=== PATIENT | male | born 1940 | race Caucasian/White ===

== ENCOUNTER → 2020-06-23 15:35 | Outpatient (BNVA) | payer MEDICARE, SELFPAY | PROVIDERS: PCP Internal Medicine; Visit Provider Internal Medicine | DX: I48.91 Unspecified atrial fibrillation (principal); Z51.81 Encounter for therapeutic drug level monitoring; Z79.01 Long term (current) use of anticoagulants | CPT/HCPCS: 85610 ==

== ENCOUNTER → 2020-07-21 08:38 | Outpatient (BNVA) | payer MEDICARE, SELFPAY | PROVIDERS: PCP Internal Medicine; Visit Provider Internal Medicine | DX: I48.91 Unspecified atrial fibrillation (principal); Z51.81 Encounter for therapeutic drug level monitoring; Z79.01 Long term (current) use of anticoagulants | CPT/HCPCS: 85610; 99211 ==

== ENCOUNTER 2020-07-22 17:08 | Outpatient (REF) | payer MEDICARE, SELFPAY | END 2020-07-22 17:09 | disposition home or self-care (01) | LOC: HO.LAB 17:08 | PROVIDERS: PCP Internal Medicine; Visit Provider Internal Medicine | DX: Z20.828 Contact with and (suspected) exposure to other viral communicable diseases (principal) | CPT/HCPCS: C9803; U0003 ==

== ENCOUNTER → 2020-08-18 08:30 | Outpatient (BNVA) | payer MEDICARE, SELFPAY | PROVIDERS: PCP Internal Medicine; Referring Provider Internal Medicine; Visit Provider Internal Medicine | DX: I48.91 Unspecified atrial fibrillation (principal); Z51.81 Encounter for therapeutic drug level monitoring; Z79.01 Long term (current) use of anticoagulants | CPT/HCPCS: 85610; 99211 ==

== ENCOUNTER → 2020-09-15 08:50 | Outpatient (BNVA) | payer MEDICARE, SELFPAY | PROVIDERS: PCP Internal Medicine; Visit Provider Internal Medicine | DX: I48.91 Unspecified atrial fibrillation (principal); Z79.01 Long term (current) use of anticoagulants; Z51.81 Encounter for therapeutic drug level monitoring | CPT/HCPCS: 85610; 99211 ==

== ENCOUNTER → 2020-10-03 09:13 | Outpatient (BNVA) | payer MEDICARE, SELFPAY | PROVIDERS: PCP Internal Medicine; Visit Provider Internal Medicine | DX: I48.91 Unspecified atrial fibrillation (principal); Z79.01 Long term (current) use of anticoagulants; Z51.81 Encounter for therapeutic drug level monitoring | CPT/HCPCS: 85610; 99211 ==

== ENCOUNTER → 2020-10-13 08:38 | Outpatient (BNVA) | payer MEDICARE, SELFPAY | PROVIDERS: PCP Internal Medicine; Visit Provider Internal Medicine | DX: I48.91 Unspecified atrial fibrillation (principal); Z51.81 Encounter for therapeutic drug level monitoring; Z79.01 Long term (current) use of anticoagulants | CPT/HCPCS: 85610; 99211 ==

== ENCOUNTER → 2020-11-10 08:35 | Outpatient (BNVA) | payer MEDICARE, SELFPAY | PROVIDERS: PCP Internal Medicine; Visit Provider Internal Medicine | DX: I48.91 Unspecified atrial fibrillation (principal); Z51.81 Encounter for therapeutic drug level monitoring; Z79.01 Long term (current) use of anticoagulants | CPT/HCPCS: 85610; 99211 ==

== ENCOUNTER 2020-11-22 07:21 | Outpatient (REF) | payer MEDICARE, SELFPAY ==
--- NOTE | ~2020-11-22 | XR_ITS ---
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 No fracture, dislocation or x-ray evidence of loosening is seen. There is a joint effusion. There is evidence of atherosclerotic disease. Standing AP view of the left knee demonstrates mild varus angulation and a severe medial femoral tibial joint space narrowing. There is medial and lateral degenerative meniscal calcification. There is evidence of atherosclerotic disease. XR/XR knee standing BI IMPRESSION: Right knee replacement. Moderate joint effusion. Degenerative changes and slight varus angulation of the left knee.
--- NOTE | ~2020-11-22 | XR_ITS ---
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 No fracture, dislocation or x-ray evidence of loosening is seen. There is a joint effusion. There is evidence of atherosclerotic disease. Standing AP view of the left knee demonstrates mild varus angulation and a severe medial femoral tibial joint space narrowing. There is medial and lateral degenerative meniscal calcification. There is evidence of atherosclerotic disease. XR/XR knee RT 2V IMPRESSION: Right knee replacement. Moderate joint effusion. Degenerative changes and slight varus angulation of the left knee.
== END 2020-11-22 07:22 | disposition home or self-care (01) ==
LOC: HO.HOSX 07:21
PROVIDERS: Visit Provider Orthopaedic Surgery
DX: M25.561 Pain in right knee (principal); M25.562 Pain in left knee; Z96.651 Presence of right artificial knee joint
CPT/HCPCS: 73560; 73565; 99212

== ENCOUNTER → 2020-12-08 08:31 | Outpatient (BNVA) | payer MEDICARE, SELFPAY | PROVIDERS: Visit Provider Internal Medicine | DX: I48.91 Unspecified atrial fibrillation (principal); Z51.81 Encounter for therapeutic drug level monitoring; Z79.01 Long term (current) use of anticoagulants | CPT/HCPCS: 85610; 99211 ==

== ENCOUNTER → 2021-01-12 08:47 | Outpatient (BNVA) | payer MEDICARE, SELFPAY | PROVIDERS: Visit Provider Internal Medicine | DX: I48.91 Unspecified atrial fibrillation (principal); Z79.01 Long term (current) use of anticoagulants; Z51.81 Encounter for therapeutic drug level monitoring | CPT/HCPCS: 85610; 99211 ==

== ENCOUNTER → 2021-02-09 08:27 | Outpatient (BNVA) | payer MEDICARE, SELFPAY | PROVIDERS: Visit Provider Internal Medicine | DX: I48.91 Unspecified atrial fibrillation (principal); Z51.81 Encounter for therapeutic drug level monitoring; Z79.01 Long term (current) use of anticoagulants | CPT/HCPCS: 85610; 99211 ==

== ENCOUNTER → 2021-03-16 08:30 | Outpatient (BNVA) | payer MEDICARE, SELFPAY | PROVIDERS: PCP Internal Medicine; Visit Provider Internal Medicine | DX: I48.91 Unspecified atrial fibrillation (principal); Z51.81 Encounter for therapeutic drug level monitoring; Z79.01 Long term (current) use of anticoagulants | CPT/HCPCS: 85610; 99211 ==

== ENCOUNTER → 2021-05-10 11:16 | Outpatient (BNVA) | payer MEDICARE, SELFPAY | PROVIDERS: Visit Provider Internal Medicine | DX: I33.0 Acute and subacute infective endocarditis (principal); R78.81 Bacteremia; B95.8 Unspecified staphylococcus as the cause of diseases classified elsewhere; Z79.01 Long term (current) use of anticoagulants; Z96.651 Presence of right artificial knee joint | CPT/HCPCS: 99212 ==

== ENCOUNTER → 2021-05-25 11:13 | Outpatient (BNVA) | payer MEDICARE, SELFPAY | PROVIDERS: Visit Provider Internal Medicine ==

== ENCOUNTER 2021-05-29 | Outpatient (REF) | payer MEDICARE, SELFPAY | END 2021-05-29 00:01 | disposition home or self-care (01) | LOC: CF | PROVIDERS: Visit Provider Internal Medicine | DX: Z79.01 Long term (current) use of anticoagulants (principal) | CPT/HCPCS: Q3014 ==

== ENCOUNTER → 2021-05-31 10:23 | Outpatient (BNVA) | payer MEDICARE, SELFPAY | PROVIDERS: PCP Internal Medicine; Visit Provider Internal Medicine | DX: I48.91 Unspecified atrial fibrillation (principal); Z51.81 Encounter for therapeutic drug level monitoring; Z79.01 Long term (current) use of anticoagulants | CPT/HCPCS: Q3014 ==

== ENCOUNTER → 2021-06-02 16:21 | Outpatient (BNVA) | payer MEDICARE, SELFPAY | PROVIDERS: PCP Internal Medicine; Visit Provider Internal Medicine | DX: I48.91 Unspecified atrial fibrillation (principal) | CPT/HCPCS: Q3014 ==

== ENCOUNTER → 2021-06-05 11:53 | Outpatient (BNVA) | payer MEDICARE, SELFPAY | PROVIDERS: PCP Internal Medicine; Visit Provider Internal Medicine | DX: I48.91 Unspecified atrial fibrillation (principal) | CPT/HCPCS: Q3014 ==

== ENCOUNTER → 2021-06-08 08:39 | Outpatient (BNVA) | payer MEDICARE, SELFPAY | PROVIDERS: PCP Internal Medicine; Visit Provider Internal Medicine | DX: Z13.89 Encounter for screening for other disorder (principal) | CPT/HCPCS: Q3014 ==

== ENCOUNTER → 2021-06-15 14:45 | Outpatient (BNVA) | payer MEDICARE, SELFPAY | PROVIDERS: PCP Internal Medicine; Visit Provider Internal Medicine | DX: I48.91 Unspecified atrial fibrillation (principal) | CPT/HCPCS: Q3014 ==

== ENCOUNTER → 2021-06-22 09:03 | Outpatient (BNVA) | payer MEDICARE, SELFPAY | PROVIDERS: PCP Internal Medicine; Visit Provider Internal Medicine | DX: I48.91 Unspecified atrial fibrillation (principal) | CPT/HCPCS: Q3014 ==

== ENCOUNTER → 2021-06-30 14:18 | Outpatient (BNVA) | payer MEDICARE, SELFPAY | PROVIDERS: PCP Internal Medicine; Visit Provider Internal Medicine | DX: I48.91 Unspecified atrial fibrillation (principal) | CPT/HCPCS: Q3014 ==

== ENCOUNTER → 2021-07-05 12:13 | Outpatient (BNVA) | payer MEDICARE, SELFPAY | PROVIDERS: PCP Internal Medicine; Visit Provider Internal Medicine | DX: I48.91 Unspecified atrial fibrillation (principal) | CPT/HCPCS: Q3014 ==

== ENCOUNTER → 2021-07-12 11:11 | Outpatient (BNVA) | payer MEDICARE, SELFPAY | PROVIDERS: PCP Internal Medicine; Visit Provider Internal Medicine | DX: I48.91 Unspecified atrial fibrillation (principal) | CPT/HCPCS: Q3014 ==

== ENCOUNTER → 2021-07-19 12:12 | Outpatient (BNVA) | payer MEDICARE, SELFPAY | PROVIDERS: PCP Internal Medicine; Visit Provider Internal Medicine | DX: I48.91 Unspecified atrial fibrillation (principal); Z51.81 Encounter for therapeutic drug level monitoring; Z79.01 Long term (current) use of anticoagulants | CPT/HCPCS: Q3014 ==

== ENCOUNTER → 2021-07-25 15:03 | Outpatient (BNVA) | payer MEDICARE, SELFPAY | PROVIDERS: PCP Internal Medicine; Visit Provider Internal Medicine | DX: I48.91 Unspecified atrial fibrillation (principal) | CPT/HCPCS: Q3014 ==

== ENCOUNTER → 2021-07-31 16:15 | Outpatient (BNVA) | payer MEDICARE, SELFPAY | PROVIDERS: PCP Internal Medicine; Visit Provider Internal Medicine | DX: I48.91 Unspecified atrial fibrillation (principal); Z51.81 Encounter for therapeutic drug level monitoring; Z79.01 Long term (current) use of anticoagulants | CPT/HCPCS: 85610; 99211 ==

== ENCOUNTER 2021-08-02 11:22 | Outpatient (REF) | payer MEDICARE, SELFPAY ==
[2021-08-02 14:07] LABS: MANUAL DIFF FLAG NO
[2021-08-02 14:08] LABS: Basophils Absolute Auto 0.1 X10*3/uL (0.0-0.2); Basophils Percent Auto 0.5 % (0-2); Eosinophils Absolute Auto 0.1 X10*3/uL (0.0-0.4); Eosinophils Percent Auto 0.8 % (0-4); Hematocrit 40.5 % (42.0-52.0); Hemoglobin 12.8 g/dl (14.0-18.0); Imm Gran Abs Auto 0.05 X10*3/uL (0.00-0.03); Imm Gran Pct Auto 0.5 % (0.0-0.4); Lymphocytes Absolute Auto 2.3 X10*3/uL (1.2-4.9); Lymphocytes Percent Auto 22.1 % (20-40); Mean Corpuscular HGB Conc 31.6 g/dl (31.0-36.0); Mean Corpuscular Hemoglobin 29.9 pg (27.0-33.0); Mean Corpuscular Volume 94.6 fL (80.0-98.0); Mean Platelet Volume 10.8 fL (9.4-12.4); Monocytes Absolute Auto 0.8 X10*3/uL (0.1-1.2); Monocytes Percent Auto 7.8 % (2-11); Neutrophils Percent Auto 68.3 % (45-73); Platelet Count 375 X10*3/uL (160-400); Red Blood Count 4.28 X10*6/uL (4.60-5.80); Red Cell Distribution Width 13.3 % (11.0-16.0); White Blood Count 10.3 X10*3/uL (4.8-10.8)
[2021-08-02 14:29] LABS: Estimated Average Glucose 100 mg/dL; Hemoglobin A1c % 5.1 %
[2021-08-02 14:42] LABS: Anion Gap 14 (12-20); Blood Urea Nitrogen 27 mg/dL (9-16); C Reactive Protein 2.57 mg/dL (< or = 0.50); Calcium 9.3 mg/dL (8.4-10.2); Carbon Dioxide 24 mmol/L (22-29); Chloride 106 mmol/L (96-108); Estimated Glomerular Filt Rate > 60; Glucose Random 83 mg/dL (60-115); Potassium 4.4 mmol/L (3.3-5.1); Sodium 140 mmol/L (135-145)
[2021-08-02 15:25] LABS: Erythrocyte Sedimentation Rate 37 MM/HR (0-15)
== END 2021-08-02 11:23 | disposition home or self-care (01) ==
LOC: HO.HMGCLNP 11:22
PROVIDERS: Visit Provider Physician Assistant
DX: L89.620 Pressure ulcer of left heel, unstageable (principal); L89.610 Pressure ulcer of right heel, unstageable; I33.0 Acute and subacute infective endocarditis
CPT/HCPCS: 80048; 83036; 85025; 85652; 86140; Q3014

== ENCOUNTER → 2021-08-07 15:40 | Outpatient (BNVA) | payer MEDICARE, SELFPAY | PROVIDERS: PCP Internal Medicine; Visit Provider Internal Medicine | DX: I48.91 Unspecified atrial fibrillation (principal) | CPT/HCPCS: Q3014 ==

== ENCOUNTER 2021-08-07 16:03 | Outpatient (REF) | payer MEDICARE, SELFPAY | END 2021-08-07 16:04 | disposition home or self-care (01) | LOC: HO.LNP 16:03 | PROVIDERS: Visit Provider Physician Assistant | DX: Z13.89 Encounter for screening for other disorder (principal) | CPT/HCPCS: 87071; 87077; 87186; 87205 ==

== ENCOUNTER → 2021-08-16 10:49 | Outpatient (BNVA) | payer MEDICARE, SELFPAY | PROVIDERS: PCP Internal Medicine; Visit Provider Internal Medicine | DX: M86.9 Osteomyelitis, unspecified (principal); I48.91 Unspecified atrial fibrillation; Z51.81 Encounter for therapeutic drug level monitoring; Z79.01 Long term (current) use of anticoagulants | CPT/HCPCS: 85610; 99211; 99212 ==

== ENCOUNTER → 2021-08-23 11:31 | Outpatient (BNVA) | payer MEDICARE, SELFPAY | PROVIDERS: PCP Internal Medicine; Visit Provider Internal Medicine | DX: I48.91 Unspecified atrial fibrillation (principal) | CPT/HCPCS: Q3014 ==

== ENCOUNTER → 2021-08-25 09:38 | Outpatient (BNVA) | payer MEDICARE, SELFPAY | PROVIDERS: Visit Provider Internal Medicine | DX: M86.9 Osteomyelitis, unspecified (principal) | CPT/HCPCS: 99212 ==

== ENCOUNTER → 2021-08-29 10:57 | Outpatient (BNVA) | payer MEDICARE, SELFPAY | PROVIDERS: PCP Internal Medicine; Visit Provider Internal Medicine | DX: I48.91 Unspecified atrial fibrillation (principal); Z51.81 Encounter for therapeutic drug level monitoring; Z79.01 Long term (current) use of anticoagulants | CPT/HCPCS: 99211 ==

== ENCOUNTER 2021-09-04 08:46 | Inpatient (IN) | payer MEDICARE, SELFPAY ==
--- NOTE | ~2021-09-04 | XR_ITS ---
EXAMINATION: XR CHEST CLINICAL INFORMATION: Status post left upper extremity PICC insertion. Tip verification. COMPARISON: None TECHNIQUE: Frontal view of the chest was obtained. FINDINGS: The cardiomediastinal silhouette is enlarged. Some increased interstitial markings without consolidation. No pleural effusion or pneumothorax. There is a left-sided PICC line with tip projecting over the SVC, the tip of the catheter is visualized en face raising possibility it may be within the azygos vein. XR/XR chest 1V IMPRESSION: The left-sided PICC line tip projects over the SVC, the tip of the catheter is visualized en face raising possibility may be within the azygos vein.
--- NOTE | ~2021-09-04 | XR_ITS ---
EXAMINATION: XR CALCANEUS, RIGHT XR CALCANEUS, LEFT CLINICAL INFORMATION: Unstable left ulcer. Question worsening osteomyelitis COMPARISON: At the right right radiographs dated 07/31/2021 TECHNIQUE: Lateral and axial views of the right and left calcanei were obtained. FINDINGS: RIGHT CALCANEUS: As seen on the prior radiograph, there is significant osseous remodeling at the posterior tuberosity of the calcaneus in the region of the Achilles tendon insertion. There is slightly increased bone loss along the inferior margin of this region of erosion as compared to prior, though this could be due to prior debridement. Margins of the erosions appear more sharp as compared to prior. Bones remain osteopenic. Soft tissues are diffusely swollen and edematous. Dystrophic calcifications are present including soft tissue calcifications. 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 LEFT CALCANEUS: There is a soft tissue wound at the posterior margin of the calcaneal tuberosity. Focal osteopenia in the underlying bone in this region could be due to early osteomyelitis, although specificity is limited by radiograph, particularly in the absence of appreciable cortical erosion. Soft tissues are swollen and edematous. Calcific atherosclerosis is present in the ankle. XR/XR calcaneus LT min 2V IMPRESSION: Right: Slightly increased bone loss at the site of calcaneal tuberosity erosion, either due to progressive osteomyelitis or debridement since the prior study. Left: Subtle focal osteopenia in the posterior margin of the calcaneal tuberosity adjacent to a region of soft tissue ulceration and subcutaneous gas . This is concerning for osteomyelitis radiographically, though not specific . Consider correlation with MRI of the ankle with and without contrast for improved specificity.
--- NOTE | ~2021-09-04 | XR_ITS ---
EXAMINATION: XR CALCANEUS, RIGHT XR CALCANEUS, LEFT CLINICAL INFORMATION: Unstable left ulcer. Question worsening osteomyelitis COMPARISON: At the right right radiographs dated 07/31/2021 TECHNIQUE: Lateral and axial views of the right and left calcanei were obtained. FINDINGS: RIGHT CALCANEUS: As seen on the prior radiograph, there is significant osseous remodeling at the posterior tuberosity of the calcaneus in the region of the Achilles tendon insertion. There is slightly increased bone loss along the inferior margin of this region of erosion as compared to prior, though this could be due to prior debridement. Margins of the erosions appear more sharp as compared to prior. Bones remain osteopenic. Soft tissues are diffusely swollen and edematous. Dystrophic calcifications are present including soft tissue calcifications. 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 LEFT CALCANEUS: There is a soft tissue wound at the posterior margin of the calcaneal tuberosity. Focal osteopenia in the underlying bone in this region could be due to early osteomyelitis, although specificity is limited by radiograph, particularly in the absence of appreciable cortical erosion. Soft tissues are swollen and edematous. Calcific atherosclerosis is present in the ankle. XR/XR calcaneus RT min 2V IMPRESSION: Right: Slightly increased bone loss at the site of calcaneal tuberosity erosion, either due to progressive osteomyelitis or debridement since the prior study. Left: Subtle focal osteopenia in the posterior margin of the calcaneal tuberosity adjacent to a region of soft tissue ulceration and subcutaneous gas . This is concerning for osteomyelitis radiographically, though not specific . Consider correlation with MRI of the ankle with and without contrast for improved specificity.
[2021-09-04 09:09] VITALS: BP 115/65; PULSE 78; RESP 18; TEMP 36.6; O2SAT 98; BMI 25.0
[2021-09-04 10:12] LABS: MANUAL DIFF FLAG NO
[2021-09-04 10:17] LABS: Basophils Percent Auto 0.4 % (0-2); Eosinophils Absolute Auto 0.1 X10*3/uL (0.0-0.4); Eosinophils Percent Auto 1.2 % (0-4); Hematocrit 42.3 % (42.0-52.0); Hemoglobin 13.4 g/dl (14.0-18.0); Imm Gran Abs Auto 0.04 X10*3/uL (0.00-0.03); Imm Gran Pct Auto 0.4 % (0.0-0.4); Lymphocytes Absolute Auto 1.5 X10*3/uL (1.2-4.9); Lymphocytes Percent Auto 15.1 % (20-40); Mean Corpuscular HGB Conc 31.7 g/dl (31.0-36.0); Mean Corpuscular Hemoglobin 29.1 pg (27.0-33.0); Mean Platelet Volume 10.8 fL (9.4-12.4); Monocytes Absolute Auto 0.8 X10*3/uL (0.1-1.2); Monocytes Percent Auto 8.1 % (2-11); Neutrophils Absolute Auto 7.3 x10*3/uL (2.0-8.3); Neutrophils Percent Auto 74.8 % (45-73); Platelet Count 283 X10*3/uL (160-400); Red Cell Distribution Width 14.6 % (11.0-16.0); White Blood Count 9.8 X10*3/uL (4.8-10.8)
[2021-09-04 10:22] LABS: INTERNATIONAL NORM RATIO 4.2 (0.9-1.1); Prothrombin Time 48.7 SEC (9.9-13.0)
[2021-09-04 10:30] LABS: Lactic Acid 1.2 mmol/L (0.5-2.0)
[2021-09-04 10:33] LABS: COVID-19 Test Negative (Negative); IDNOW Serial# 9DD0AD1C
[2021-09-04 10:37] LABS: Alanine Aminotransferase 35 U/L (0-40); Albumin Level 3.7 g/dL (3.5-5.0); Alkaline Phosphatase 86 U/L (39-117); Anion Gap 8 (12-20); Aspartate Amino Transferase 28 U/L (5-37); Bilirubin Direct 0.3 mg/dL (0.0-0.5); Bilirubin Total 0.3 mg/dL (0.0-1.0); Blood Urea Nitrogen 23 mg/dL (9-16); C Reactive Protein 2.42 mg/dL (< or = 0.50); Calcium 9.4 mg/dL (8.4-10.2); Carbon Dioxide 27 mmol/L (22-29); Chloride 107 mmol/L (96-108); Creatinine Clr Calc Pharmacy 58.6; Estimated Glomerular Filt Rate 57; Glucose Random 75 mg/dL (60-115); Magnesium 2.1 mg/dL (1.6-2.6); Potassium 3.8 mmol/L (3.3-5.1); Sodium 138 mmol/L (135-145); Total Protein 6.9 g/dL (6.5-8.0)
[2021-09-04 11:02] LABS: Erythrocyte Sedimentation Rate 22 MM/HR (0-15)
--- NOTE | 2021-09-04 11:43 | ED.SKABFB ---
HPI - Skin/Abscess/Foreign Bdy General Chief complaint: Skin/Abscess/Foreign Body Stated complaint: IV Antibiotics for wound Time Seen by Provider: 09/04/21 09:17 Source: patient Mode of arrival: ambulatory Limitations: no limitations History of Present Illness HPI narrative: Patient comes to the emergency room complaining of worsening wounds in his right heel. Patient states that he has been seen by Dr. Ugarte from Infectious Disease approximately 10 days ago. Patient was instructed to get a PICC line, and start daptomycin. However, patient's antibiotic was not approved as an outpatient. Patient was instructed to come to the emergency room for IV antibiotics and admission. In the meantime, patient has been treated with p.o. Bactrim. Patient denies fever or chills Related Data Home Medications Medication Instructions Recorded Confirmed metoprolol succinate 25 mg 25 mg PO DAILY 09/15/20 08/07/21 tablet,extended release 24 hr simvastatin 40 mg tablet 40 mg PO BEDTIME 09/15/20 08/07/21 sulfamethoxazole 800 1 tab PO BID 10/13/20 08/07/21 mg-trimethoprim 160 mg tablet ascorbic acid (vitamin C) PO 02/09/21 08/07/21 calcium carb-mag ox-zinc sulf PO 02/09/21 08/07/21 coenzyme Q10 [Co Q-10] PO 02/09/21 08/07/21 ferrous sulfate [Iron (ferrous PO 02/09/21 08/07/21 sulfate)] multivitamin [Daily Multivitamin] PO 02/09/21 08/07/21 omega-3 fatty acids [Fish Oil PO 02/09/21 08/07/21 Concentrate] saw palmetto PO 02/09/21 08/07/21 vitamin B complex [B PO 02/09/21 08/07/21 Complex-Vitamin B12] vitamin E mixed PO 02/09/21 08/07/21 acetaminophen 650 mg 650 mg PO Q12H 05/25/21 08/07/21 tablet,extended release diclofenac sodium 1 % topical gel 2 g TOPICAL .prn g 05/25/21 08/07/21 furosemide 20 mg tablet 20 mg PO QAM 05/25/21 08/07/21 metoprolol tartrate 25 mg tablet 25 mg PO BID 05/25/21 08/07/21 potassium chloride 20 mEq 20 meq PO DAILY 05/25/21 08/07/21 tablet,extended release(part/cryst) atorvastatin 20 mg tablet 20 mg PO DAILY 06/05/21 08/07/21 Previous Rx's Medication Instructions Recorded warfarin 5 mg tablet 5 mg PO DAILY #90 tab 06/23/20 daptomycin 500 mg intravenous 352 mg IV Q24H 42 Days #42 ea 08/16/21 solution sulfamethoxazole 800 1 tab PO Q12H 15 Days #30 tab 08/25/21 mg-trimethoprim 160 mg tablet (Bactrim DS) Allergies Allergy/AdvReac Type Severity Reaction Status Date / Time clopidogrel [From PLAVIX] Allergy Unknown RASH Verified 08/25/21 10:26 Review of Systems Review of Systems: Constitutional : No Weight loss, No Fever, No Chills, No Night Sweats, No Fatigue, No Malaise ENT/Mouth : No Hearing loss, No Ear Pain, No Nasal Congestion, No Sinus Pain, No Hoarseness, No sore throat, No Rhinorrhea, No Swallowing Difficulty Eyes: No Eye Pain, No Swelling, No Redness, No Foreign Body, No Discharge, No Vision Changes Cardiovascular : No Chest Pain, No SOB, No Dyspnea on Exertion, No Orthopnea, No Edema, No Palpitations Respiratory : No Cough, No Sputum, No Wheezing, No Smoke Exposure, No Dyspnea Gastrointestinal : No Nausea, No Vomiting, No Diarrhea, No Constipation, No abdominal Pain, No Hematochezia, No Melena Genitourinary : no irregular bleeding, No Dysuria, No Urinary Frequency, No Hematuria, No Urinary Incontinence, No Urgency, No Flank Pain, No Urinary Flow Changes, No Hesitancy Musculoskeletal : No joint pain, No Myalgias, No Joint Swelling Skin : Unhealed ulcers in both heels Neuro : No Weakness, No Numbness, No Paresthesias, No Loss of Consciousness, No Dizziness, No Headache Psych : No Anxiety/Panic, No Depression, No SI/HI/AH/VH, No Social Issues, Heme/Lymph: No Bruising, No Bleeding,No Lymphadenopathy Endocrine : No Polyuria, No Polydipsia, No Temperature Intolerance [facility] Past Medical History Medical History Atrial fibrillation Bacteremia Dementia DVT of right axillary vein, acute 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 Oriented X3. No acute distress. Eyes: Pupils equal, round and reactive to light. ENT: Pharynx normal. Neck: Normal inspection. Neck supple. No lymph nodes noted. No crepitus CVS: Normal heart rate and rhythm. Pulses normal. Normal S1 and S2 Respiratory: No respiratory distress. Breath sounds normal. No Wheezing. No rales Abdomen: Soft and nontender. No rigidity. No distention. Skin: Skin warm and dry. Extremities below Extremities: Patient has an unstageable ulcer in the left heel, right heel ulcers seems infected, draining malodorous discharge Neuro: Oriented X 3. No motor deficit. No sensory deficit. Moving all extermities. No slurred speech. Course Course Course Narrative: Patient's labs are at baseline, white blood cell count 9.8, lactic 1.2, patient is not septic. She would like to get the patient admitted to the medicine, patient will need a PICC line. In the meantime instead of starting daptomycin we will start with vancomycin I discussed the patient with Dr. Polanco. Patient will be admitted for osteomyelitis of both heels MDM - Skin/Abscess/Foreign Bdy Lab Data Result diagrams: 09/04/21 10:01 09/04/21 10:01 Labs: Lab Results 09/04/21 09/04/21 09/04/21 Range/Units 10:01 10:01 10:01 WBC 9.8 (4.8-10.8) X10*3/uL RBC 4.60 (4.60-5.80) X10*6/uL Hgb 13.4 L (14.0-18.0) g/dl Hct 42.3 (42.0-52.0) % MCV 92.0 (80.0-98.0) fL MCH 29.1 (27.0-33.0) pg MCHC 31.7 (31.0-36.0) g/dl RDW 14.6 (11.0-16.0) % Plt Count 283 (160-400) X10*3/uL MPV 10.8 (9.4-12.4) fL Immature Gran % (Auto) 0.4 (0.0-0.4) % Neut % (Auto) 74.8 H (45-73) % Lymph % (Auto) 15.1 L (20-40) % [place] % (Auto) 8.1 (2-11) % Eos % (Auto) 1.2 (0-4) % Baso % (Auto) 0.4 (0-2) % Lymph # (Auto) 1.5 (1.2-4.9) X10*3/uL [place] # (Auto) 0.8 (0.1-1.2) X10*3/uL Eos # (Auto) 0.1 (0.0-0.4) X10*3/uL Baso # (Auto) 0.0 (0.0-0.2) X10*3/uL Abs Immat Gran (auto) 0.04 H (0.00-0.03) X10*3/uL Absolute Neuts (auto) 7.3 (2.0-8.3) x10*3/uL Absolute Nucleated RBC 0.000 (0.0-0.012) X10*3/uL Nucleated RBC % (auto) 0.0 (0.0-0.2) /100WBC ESR 22 H (0-15) MM/HR PT (9.9-13.0) SEC INR (0.9-1.1) Sodium 138 (135-145) mmol/L Potassium 3.8 (3.3-5.1) mmol/L Chloride 107 (96-108) mmol/L Carbon Dioxide 27 (22-29) mmol/L Anion Gap 8 L (12-20) BUN 23 H (9-16) mg/dL Creatinine 1.22 (0.5-1.4) mg/dL Estim Creat Clear Calc 58.6 Estimated GFR 57 Random Glucose 75 (60-115) mg/dL Lactic Acid (0.5-2.0) mmol/L Calcium 9.4 (8.4-10.2) mg/dL Magnesium 2.1 (1.6-2.6) mg/dL Total Bilirubin 0.3 (0.0-1.0) mg/dL Direct Bilirubin 0.3 (0.0-0.5) mg/dL AST 28 (5-37) U/L ALT 35 (0-40) U/L Alkaline Phosphatase 86 (39-117) U/L C-Reactive Protein 2.42 H (< or = 0.50) mg/dL Total Protein 6.9 (6.5-8.0) g/dL Albumin 3.7 (3.5-5.0) g/dL COVID-19 (DEION) (Negative) COVID-19 Clin Com 09/04/21 09/04/21 09/04/21 Range/Units 10:01 10:01 10:01 WBC (4.8-10.8) X10*3/uL RBC (4.60-5.80) X10*6/uL Hgb (14.0-18.0) g/dl Hct (42.0-52.0) % MCV (80.0-98.0) fL MCH (27.0-33.0) pg MCHC (31.0-36.0) g/dl RDW (11.0-16.0) % Plt Count (160-400) X10*3/uL MPV (9.4-12.4) fL Immature Gran % (Auto) (0.0-0.4) % Neut % (Auto) (45-73) % Lymph % (Auto) (20-40) % [place] % (Auto) (2-11) % Eos % (Auto) (0-4) % Baso % (Auto) (0-2) % Lymph # (Auto) (1.2-4.9) X10*3/uL [place] # (Auto) (0.1-1.2) X10*3/uL Eos # (Auto) (0.0-0.4) X10*3/uL Baso # (Auto) (0.0-0.2) X10*3/uL Abs Immat Gran (auto) (0.00-0.03) X10*3/uL Absolute Neuts (auto) (2.0-8.3) x10*3/uL Absolute Nucleated RBC (0.0-0.012) X10*3/uL Nucleated RBC % (auto) (0.0-0.2) /100WBC ESR (0-15) MM/HR PT 48.7 H (9.9-13.0) SEC INR 4.2 H (0.9-1.1) Sodium (135-145) mmol/L Potassium (3.3-5.1) mmol/L Chloride (96-108) mmol/L Carbon Dioxide (22-29) mmol/L Anion Gap (12-20) BUN (9-16) mg/dL Creatinine (0.5-1.4) mg/dL Estim Creat Clear Calc Estimated GFR Random Glucose (60-115) mg/dL Lactic Acid 1.2 (0.5-2.0) mmol/L Calcium (8.4-10.2) mg/dL Magnesium (1.6-2.6) mg/dL Total Bilirubin (0.0-1.0) mg/dL Direct Bilirubin (0.0-0.5) mg/dL AST (5-37) U/L ALT (0-40) U/L Alkaline Phosphatase (39-117) U/L C-Reactive Protein (< or = 0.50) mg/dL Total Protein (6.5-8.0) g/dL Albumin (3.5-5.0) g/dL COVID-19 (DEION) Negative (Negative) COVID-19 Clin Com See Note Imaging Data Right and left calcaneus: Radiologist's impression: RIGHT CALCANEUS: As seen on the prior radiograph, there is significant osseous remodeling at the posterior tuberosity of the calcaneus in the region of the Achilles tendon insertion. There is slightly increased bone loss along the inferior margin of this region of erosion as compared to prior, though this could be due to prior debridement. Margins of the erosions appear more sharp as compared to prior. Bones remain osteopenic. Soft tissues are diffusely swollen and edematous. Dystrophic calcifications are present including soft tissue calcifications. 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 LEFT CALCANEUS: There is a soft tissue wound at the posterior margin of the calcaneal tuberosity. Focal osteopenia in the underlying bone in this region could be due to early osteomyelitis, although specificity is limited by radiograph, particularly in the absence of appreciable cortical erosion. Soft tissues are swollen and edematous. Calcific atherosclerosis is present in the ankle. XR/XR calcaneus RT min 2V IMPRESSION: Right: Slightly increased bone loss at the site of calcaneal tuberosity erosion, either due to progressive osteomyelitis or debridement since the prior study. ? Left: Subtle focal osteopenia in the posterior margin of the calcaneal tuberosity adjacent to a region of soft tissue ulceration and subcutaneous gas . This is concerning for osteomyelitis radiographically, though not specific . Consider correlation with MRI of the ankle with and without contrast for improved specificity. Discharge Plan Discharge Clinical Impression: Osteomyelitis Qualifiers: Osteomyelitis type: other Osteomyelitis location: multiple sites Qualified Code(s): M86.8X0 - Other osteomyelitis, multiple sites Patient Disposition: Admitted As Inpatient
[2021-09-04] MEDS: vancomycin HCL 1,000 MG in 0.9 % Sodium Chloride 250 ML 270 MG IV (12:32)
--- NOTE | 2021-09-04 12:52 | PM.IMHP ---
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 was being treated with bactrim and doxy as outpatient due to non converage for apro. however, wound care noted no improvement so sent patient to ID, who recommended sending patient to ED to set up for IV vanco. patient himself does not note any worsening, he says if anything it has improved. denies fever and chills. x-rays in ED, concerning for bilateral ankle OM. Review of Systems Review of Systems: Constitutional: Denies fever, denies Chills Eyes: denies blurry vision ENT: denies sore throat CVS: denies chest pain Respiratory: Denies dyspnea GI: no abdominal pain : denies dysuria MSK: denies neck pain Skin: denies rash Neuro: denies specific motor weakness Psych: denies suicidal ideation Endocrine: denies heat/cold intolerance Hematologic: denies easy bleeding Allergy: denies hives [facility] Medical History Atrial fibrillation Bacteremia Dementia DVT of right axillary vein, acute Endocarditis due to Staphylococcus Osteomyelitis Family History Father CAD (coronary artery disease) Social History (Updated 09/04/21 @ 12:57 by Rajendra Holman MD) Alcohol intake: unknown Patient Tobacco Use Status: Never used Tobacco Use of substances other than those prescribed or required for medical reasons: No Advance Directives: No Advance Directives Information Provided: No Meds Allergies Allergy/AdvReac Type Severity Reaction Status Date / Time clopidogrel [From PLAVIX] Allergy Unknown RASH Verified 08/25/21 10:26 Active Medications: Current Medications Vancomycin HCl 1,000 mg/ (Sodium Chloride) 270 mls @ 270 mls/hr IV Q12H LINDA Metoprolol Tartrate (Metoprolol Tartrate 25 Mg Tablet) 25 mg PO BID LINDA; Protocol Pharmacy Consult (Consult Rx Perform Med Rec) 1 each MISCELLANE ONCE PRN PRN Reason: Consult order Pharmacy Consult (Consult Rx Perform Med Rec) 1 each MISCELLANE ONCE PRN PRN Reason: Consult order Pharmacy Consult (Consult Rx Vancomycin Dosing) 1 each MISCELLANE DAILY PRN PRN Reason: Consult order Home Medications Medication Instructions Recorded Confirmed Last Taken Type metoprolol succinate 25 mg 25 mg PO DAILY 09/15/20 08/07/21 Unknown History tablet,extended release 24 hr simvastatin 40 mg tablet 40 mg PO BEDTIME 09/15/20 08/07/21 Unknown History sulfamethoxazole 800 1 tab PO BID 10/13/20 08/07/21 Unknown History mg-trimethoprim 160 mg tablet ascorbic acid (vitamin C) PO 02/09/21 08/07/21 Unknown History calcium carb-mag ox-zinc sulf PO 02/09/21 08/07/21 Unknown History coenzyme Q10 [Co Q-10] PO 02/09/21 08/07/21 Unknown History ferrous sulfate [Iron (ferrous PO 02/09/21 08/07/21 Unknown History sulfate)] multivitamin [Daily Multivitamin] PO 02/09/21 08/07/21 Unknown History omega-3 fatty acids [Fish Oil PO 02/09/21 08/07/21 Unknown History Concentrate] saw palmetto PO 02/09/21 08/07/21 Unknown History vitamin B complex [B PO 02/09/21 08/07/21 Unknown History Complex-Vitamin B12] vitamin E mixed PO 02/09/21 08/07/21 Unknown History acetaminophen 650 mg 650 mg PO Q12H 05/25/21 08/07/21 Unknown History tablet,extended release diclofenac sodium 1 % topical gel 2 g TOPICAL .prn g 05/25/21 08/07/21 Unknown History furosemide 20 mg tablet 20 mg PO QAM 05/25/21 08/07/21 Unknown History metoprolol tartrate 25 mg tablet 25 mg PO BID 05/25/21 08/07/21 Unknown History potassium chloride 20 mEq 20 meq PO DAILY 05/25/21 08/07/21 Unknown History tablet,extended release(part/cryst) atorvastatin 20 mg tablet 20 mg PO DAILY 06/05/21 08/07/21 Unknown History Physical Exam Vital Signs and Narrative: Vital Signs: Last Vital Signs Temp 97.9 F 09/04/21 09:09 Pulse 78 09/04/21 09:09 Resp 18 09/04/21 09:09 BP 115/65 09/04/21 09:09 Pulse Ox 98 09/04/21 09:09 BMI result Body Mass Index 25.0 General: no acute distress HEENT: atraumatic Neck: normal to visual inspection CVS: S1, S2, RRR Resp: CTA bilateral Chest: non tender GI: soft, non tender, non distended : no CVA tenderness Skin: ankle ulcers bilateral, see ED picks Extremities: right lower extremity edema Neuro: Oriented X3, grossly intact Psych: cooperative Results Labs CBC and Chem 7: 09/04/21 10:01 09/04/21 10:01 Labs: Laboratory Results - last 24 hr 09/04/21 09/04/21 09/04/21 10:01 10:01 10:01 MCV 92.0 MCH 29.1 MCHC 31.7 RDW 14.6 Plt Count 283 MPV 10.8 Immature Gran % (Auto) 0.4 Neut % (Auto) 74.8 H Lymph % (Auto) 15.1 L [place] % (Auto) 8.1 Eos % (Auto) 1.2 Baso % (Auto) 0.4 Lymph # (Auto) 1.5 [place] # (Auto) 0.8 Eos # (Auto) 0.1 Baso # (Auto) 0.0 Abs Immat Gran (auto) 0.04 H Absolute Neuts (auto) 7.3 Absolute Nucleated RBC 0.000 Nucleated RBC % (auto) 0.0 ESR 22 H PT INR Anion Gap 8 L Estim Creat Clear Calc 58.6 Estimated GFR 57 Random Glucose 75 Lactic Acid Calcium 9.4 Magnesium 2.1 Total Bilirubin 0.3 Direct Bilirubin 0.3 AST 28 ALT 35 Alkaline Phosphatase 86 C-Reactive Protein 2.42 H Total Protein 6.9 Albumin 3.7 COVID-19 (DEION) COVID-19 Clin Com 09/04/21 09/04/21 09/04/21 10:01 10:01 10:01 MCV MCH MCHC RDW Plt Count MPV Immature Gran % (Auto) Neut % (Auto) Lymph % (Auto) [place] % (Auto) Eos % (Auto) Baso % (Auto) Lymph # (Auto) [place] # (Auto) Eos # (Auto) Baso # (Auto) Abs Immat Gran (auto) Absolute Neuts (auto) Absolute Nucleated RBC Nucleated RBC % (auto) ESR PT 48.7 H INR 4.2 H Anion Gap Estim Creat Clear Calc Estimated GFR Random Glucose Lactic Acid 1.2 Calcium Magnesium Total Bilirubin Direct Bilirubin AST ALT Alkaline Phosphatase C-Reactive Protein Total Protein Albumin COVID-19 (DEION) Negative COVID-19 Clin Com See Note Imaging Radiologist's Impressions: Impressions Calcaneus X-Ray 09/04/21 11:30 IMPRESSION: Right: Slightly increased bone loss at the site of calcaneal tuberosity erosion, either due to progressive osteomyelitis or debridement since the prior study. Left: Subtle focal osteopenia in the posterior margin of the calcaneal tuberosity adjacent to a region of soft tissue ulceration and subcutaneous gas . This is concerning for osteomyelitis radiographically, though not specific . Consider correlation with MRI of the ankle with and without contrast for improved specificity. Calcaneus X-Ray 09/04/21 11:30 IMPRESSION: Right: Slightly increased bone loss at the site of calcaneal tuberosity erosion, either due to progressive osteomyelitis or debridement since the prior study. Left: Subtle focal osteopenia in the posterior margin of the calcaneal tuberosity adjacent to a region of soft tissue ulceration and subcutaneous gas . This is concerning for osteomyelitis radiographically, though not specific . Consider correlation with MRI of the ankle with and without contrast for improved specificity. Assessment and Plan (1) Osteomyelitis: Qualifiers: Osteomyelitis location: multiple sites Osteomyelitis type: other Qualified Code(s): M86.8X0 - Other osteomyelitis, multiple sites Status: Acute 81M presented with non heeling OM non heeling OM of right and possibly left ankle iv vanco, ID eval wound care monitor trough, bmp atrial fibrillation, suspect paroxysmal lopressor, coumadin (supratherapeutic, monitor inr, goal 2-3) Quality Stroke Does the patient have a stroke diagnosis?: No VTE Prior VTE?: No VTE Risk Level:: Medical - moderate - high VTE Device Contraindication: Treatment Not Indicated VTE Drug Contraindication: N/A - Med Ordered
--- NOTE | 2021-09-04 13:13 | PHA.MEDREC ---
Pharmacy Consult ? Medication Reconciliation Pharmacy has completed the medication reconciliation. Spoke with patient in ED and he took all of his medications this morning. Patient also takes warfarin in the AM, took today and attends [facility] coumadin clinic.
--- NOTE | 2021-09-04 13:39 | PC.NURSE ---
Pt received: AOX4 and c/o slight pain to R lower foot. Ulcer noted and pt states he regularly frequents the wound care center for wound checks and dressings every other day. Heart sounds normal and lungs diminished.
[2021-09-04 13:55] VITALS: BP 131/86; PULSE 74; RESP 16; O2SAT 100
--- NOTE | 2021-09-04 14:10 | PHA.PROG ---
Admission Date/Time: Indication: [facility] AND JOINT INF Weight in k.718 kg Adjusted body weight in K KG [place] body weight in K.5 KG Obesity Dosing Indication % IBW: Serum Creatinine - Last 168 Hours 09/04/21 10:01 Creatinine 1.22 Estimated CrCl and GFR - Last 168 Hours 09/04/21 10:01 Estim Creat Clear Calc 58.6 Estimated GFR 57 Vancomycin Loading Dose: 1000 MG + 500 MG = 1500 MG Current Vancomycin Dosing Regimen: 1250 MG DAILY Vancomycin Monitoring using AUC goal of 400 - 600 range with trough as surrogate marker: PREDICTED AUC 452 Date and Time for next Vancomycin Level to be drawn: 09/06/21 @1200 Pharmacist Comments on Vancomycin Plan: ADDITIONAL DOSE OF 500 MG GIVEN IN ADDITION TO 1000 MG GIVEN IN ED Vancomycin dosing will take advantage of [employer] as a clinical decision support tool that uses Bayesian modeling to calculate individual patient's pharmacokinetic parameters and forecast the patient's drug concentration time course with the target goal AUC 24 range of 400 - 600 mg/L/hr.
[2021-09-04] MEDS: vancomycin HCL 500 MG in 0.9 % Sodium Chloride 100 ML 110 MG IV (14:55)
[2021-09-04 20:28] VITALS: BP 118/75; PULSE 69; RESP 18; TEMP 36.6; O2SAT 98
[2021-09-04 20:44] VITALS: BP 118/75; PULSE 69
[2021-09-04] MEDS: Metoprolol Tartrate 25 MG TABLET PO (20:44)
[2021-09-04 22:30] VITALS: BP 100/65; PULSE 67; RESP 16; O2SAT 96
--- NOTE | 2021-09-04 22:46 | MHC.CM.PN ---
Addendum entered by Mihaela Feng 09/04/21 23:20: Pt would like to continue with [facility]. Original Note: CM met with admitted patient with bed assignment pending. A&Ox3. IMM reviewed and signed per protocol 09/04/2021@2220. Copy given and to medical records. HCP not on file. Copy requested. HCP/nephew Agustin Del Rio ([phone]). PCP Kirk Randle. Pt lives with significant other, Stacy Malone ([phone]). Pt attends [facility] wound care and is active with [facility]. Pt will need PICC line and IV antibiotics. Osteomyelitis and non-healing heel ulcers. Ambulates with steady gait with walker. Referral made to [facility] to follow. CM to follow for d/c needs.
--- NOTE | 2021-09-04 23:02 | PC.NURSE ---
I assumed care of this patient at 1900. Since that time he has been alert and oriented x 3. he has frequently expressed his disappointment in the ER temperature, referring to it as an ice box. however, each time I offer him warm blankets he replies no thats fine, im already used to the cold. I have made several attempts to help him with the fact that he feels cold, but he continues to complain about the temperature while at the same time refusing blankets offered to him. Otherwise the pt is doing well - when I arrived at 1900 he informed that a doctor tok the dressings off of my feet at 11am and said someone would be in to re-dress them. At 1900 they still had not been re-dressed. He showed me paperwork with wound care instructions from wound clinic - the supplies requested are not something that we have in the Ed. I spoke with hospitalist at this time who requested i place simple dressings until pt can be seen by wound care. I applied telfa, dry gauze and danyel to R and L heel wounds. Socks placed over dressings. The pt denies having any pain. No chest pain. No shortness of breath. CASAREZ x 4. He ambulated to the bathroom near nursing staff [facility] and back to bed 12 independently with use of his walker with safe, steady gait. He is currently awaiting bed assignment. Will continue to monitor. He is taking PO food and fluids without difficulty.
[2021-09-05 01:23] VITALS: BMI 24.3
[2021-09-05 01:39] VITALS: BP 116/73; PULSE 80; RESP 18; TEMP 36.3; O2SAT 99
[2021-09-05 05:57] LABS: Hematocrit 41.1 % (42.0-52.0); Hemoglobin 13.1 g/dl (14.0-18.0); Mean Corpuscular HGB Conc 31.9 g/dl (31.0-36.0); Mean Corpuscular Hemoglobin 29.6 pg (27.0-33.0); Mean Platelet Volume 10.6 fL (9.4-12.4); Platelet Count 256 X10*3/uL (160-400); Red Blood Count 4.42 X10*6/uL (4.60-5.80); Red Cell Distribution Width 14.6 % (11.0-16.0); White Blood Count 7.8 X10*3/uL (4.8-10.8)
[2021-09-05 06:02] LABS: INTERNATIONAL NORM RATIO 4.6 (0.9-1.1)
[2021-09-05 06:18] LABS: Chloride 109 mmol/L (96-108); Potassium 4.3 mmol/L (3.3-5.1); Sodium 141 mmol/L (135-145)
[2021-09-05 06:19] LABS: Anion Gap 9 (12-20); Blood Urea Nitrogen 19 mg/dL (9-16); Calcium 9.6 mg/dL (8.4-10.2); Carbon Dioxide 27 mmol/L (22-29); Creatinine Clr Calc Pharmacy 59.6; Estimated Glomerular Filt Rate 58; Glucose Fasting 85 mg/dL (60-99)
[2021-09-05 07:25] VITALS: BP 125/74; PULSE 76; RESP 18; TEMP 36.6; O2SAT 96
--- NOTE | 2021-09-05 08:17 | P.PNIM_ITS ---
Subjective Subjective Date of Service: 09/05/21 Interval History: cc: non healing heel om interval history: no changes Cardiovascular Cardiovascular: Reports no additional cardiovascular complaints Respiratory Respiratory: Reports no additional respiratory complaints Physical Exam Vital Signs: Vital Signs: Last Vital Signs Temp 97.9 F 09/05/21 07:25 Pulse 76 09/05/21 07:25 Resp 18 09/05/21 07:25 BP 125/74 09/05/21 07:25 Pulse Ox 96 09/05/21 07:25 BMI result Body Mass Index 24.3 General: AO X 3, no acute distress Resp: CTA bilateral, no accessory muscles used CVS: S1,S2,RRR GI: soft, non tender, non distended Neuro: motor grossly intact, alert Psych: appropriate affect, appropriate insight skin: bilateral heel wounds Objective Data Active Medications Acetaminophen (Acetaminophen 325 Mg Tablet) 650 mg PO Q6H PRN PRN Reason: Pain, Mild (Pain Scale 1-3) Ascorbic Acid (Ascorbic Acid 500 Mg Tablet) 500 mg PO DAILY [facility] Atorvastatin Calcium (Atorvastatin Calcium 20 Mg Tablet) 20 mg PO BEDTIME [facility] Ferrous Sulfate (Ferrous Sulfate 324 Mg Tablet.Dr) 324 mg PO DAILY [facility] Furosemide (Furosemide 20 Mg Tablet) 20 mg PO DAILY [facility]; Protocol Vancomycin HCl 1,250 mg/ (Sodium Chloride) 250 mls @ 166.667 mls/hr IV Q24H [facility] Metoprolol Tartrate (Metoprolol Tartrate 25 Mg Tablet) 25 mg PO BID [facility]; Protocol Last Admin: 09/04/21 20:44 Dose: 25 mg Documented by: ASIF Multivitamins/Vitamin C (Multivitamin Tablet) 1 tab PO DAILY [facility] Pharmacy Consult (Consult Rx Perform Med Rec) 1 each MISCELLANE ONCE PRN PRN Reason: Consult order Pharmacy Consult (Consult Rx Perform Med Rec) 1 each MISCELLANE ONCE PRN PRN Reason: Consult order Pharmacy Consult (Consult Rx Vancomycin Dosing) 1 each MISCELLANE DAILY PRN PRN Reason: Consult order Sodium Chloride (0.9 % Sodium Chloride Flush 3 Ml Syringe) 3 ml IVFLUSH QSHIFT [facility] Last Admin: 09/05/21 01:03 Dose: Not Given Documented by: DEE DEE Non-Admin Reason: Previously Administered Labs CBC & Chem 7: 09/05/21 05:37 09/05/21 05:37 Labs: Laboratory Results - last 24 hr 09/04/21 09/04/21 09/04/21 10:01 10:01 10:01 MCV 92.0 MCH 29.1 MCHC 31.7 RDW 14.6 Plt Count 283 MPV 10.8 Immature Gran % (Auto) 0.4 Neut % (Auto) 74.8 H Lymph % (Auto) 15.1 L Williamson % (Auto) 8.1 Eos % (Auto) 1.2 Baso % (Auto) 0.4 Lymph # (Auto) 1.5 Williamson # (Auto) 0.8 Eos # (Auto) 0.1 Baso # (Auto) 0.0 Abs Immat Gran (auto) 0.04 H Absolute Neuts (auto) 7.3 Absolute Nucleated RBC 0.000 Nucleated RBC % (auto) 0.0 ESR 22 H PT INR Anion Gap 8 L Estim Creat Clear Calc 58.6 Estimated GFR 57 Random Glucose 75 Fasting Glucose Lactic Acid Calcium 9.4 Magnesium 2.1 Total Bilirubin 0.3 Direct Bilirubin 0.3 AST 28 ALT 35 Alkaline Phosphatase 86 C-Reactive Protein 2.42 H Total Protein 6.9 Albumin 3.7 COVID-19 ([facility]) COVID-Startupi 09/04/21 09/04/21 09/04/21 10:01 10:01 10:01 MCV MCH MCHC RDW Plt Count MPV Immature Gran % (Auto) Neut % (Auto) Lymph % (Auto) Williamson % (Auto) Eos % (Auto) Baso % (Auto) Lymph # (Auto) Williamson # (Auto) Eos # (Auto) Baso # (Auto) Abs Immat Gran (auto) Absolute Neuts (auto) Absolute Nucleated RBC Nucleated RBC % (auto) ESR PT 48.7 H INR 4.2 H Anion Gap Estim Creat Clear Calc Estimated GFR Random Glucose Fasting Glucose Lactic Acid 1.2 Calcium Magnesium Total Bilirubin Direct Bilirubin AST ALT Alkaline Phosphatase C-Reactive Protein Total Protein Albumin COVID-19 ([facility]ION) Negative COVID-Joosy Com See Note 09/05/21 09/05/21 09/05/21 05:37 05:37 05:37 MCV 93.0 MCH 29.6 MCHC 31.9 RDW 14.6 Plt Count 256 MPV 10.6 Immature Gran % (Auto) Neut % (Auto) Lymph % (Auto) Williamson % (Auto) Eos % (Auto) Baso % (Auto) Lymph # (Auto) Williamson # (Auto) Eos # (Auto) Baso # (Auto) Abs Immat Gran (auto) Absolute Neuts (auto) Absolute Nucleated RBC 0.000 Nucleated RBC % (auto) 0.0 ESR PT 54.0 H INR 4.6 H Anion Gap 9 L Estim Creat Clear Calc 59.6 Estimated GFR 58 Random Glucose Fasting Glucose 85 Lactic Acid Calcium 9.6 Magnesium Total Bilirubin Direct Bilirubin AST ALT Alkaline Phosphatase C-Reactive Protein Total Protein Albumin COVID-19 ([facility]ION) COVID-19 Clin Com Assessment and Plan (1) Osteomyelitis: Status: Acute Assessment and Plan: ?81M presented with non heeling OM non heeling OM of right and possibly left ankle continue iv vanco, ID follow up wound care monitor trough, bmp atrial fibrillation, suspect paroxysmal lopressor, coumadin (supratherapeutic inr 4.6, no evidence of bleeding, cotinue to hold, monitor inr, goal 2-3) Quality Stroke Does the patient have a stroke diagnosis?: No VTE Prior VTE?: No VTE Risk Level:: Medical - moderate - high VTE Device Contraindication: Treatment Not Indicated VTE Drug Contraindication: N/A - Med Ordered
[2021-09-05] MEDS: Multivitamin TABLET 1 TAB PO (09:22)
[2021-09-05] MEDS: Ferrous Sulfate 324 MG TABLET.DR PO (09:23)
[2021-09-05] MEDS: Furosemide 20 MG TABLET PO (09:23)
[2021-09-05] MEDS: Metoprolol Tartrate 25 MG TABLET PO ×2 (09:23→20:22)
[2021-09-05] MEDS: Ascorbic Acid 500 MG TABLET PO (09:23)
[2021-09-05] MEDS: 0.9 % Sodium Chloride Flush 3 ML SYRINGE IVFLUSH ×3 (09:24→20:22)
--- NOTE | 2021-09-05 10:32 | P.CDIC_ITS ---
CDI Concurrent Query Documentation Clarification: PHYSICIAN'S DOCUMENTATION REQUEST Date of Query: 09/05/21 1033 Patient Name: Vladimir Flynn Admit Date: 09/04/21 Dear Doctor, A review of the medical record indicates additional documentation may be indicated. Please review below and update the documentation accordingly. Clinical Indicators: Risk Factors/Clinical Indicators/Treatments Left heel: unstageable ulcer Right heel: malodorous ulcer Per H&P: non healing OM of right and possibly left ankle Based on the above, could you please provide, in the Progress Notes, further information regarding the ulcer/wound: * Type (etiology) of ulcer/wound: * Venous stasis ulcer * Arterial (ischemic) ulcer * Pressure (decubitus) ulcer * Traumatic wound * Other * Unable to determine * For a non-pressure ulcer, please indicate the depth/severity: * Limited to the breakdown of skin * With fat layer exposed * With necrosis of muscle * With necrosis of bone * Other * Unable to determine * If a pressure ulcer, please also include the stage* of the ulcer: * Stage 1 - Skin intact, non-blanchable redness * Stage 2 - Partial thickness loss of dermis, includes intact or open blister * Stage 3 - Full thickness tissue not including bone, tendon, or muscle * Stage 4 - Full thickness tissue loss, including exposed bones, tendon, or muscle * Unstageable - Full thickness tissue loss in which the base of the ulcer is covered by slough (yellow, momin, perez, green or brown) and/or eschar (momin, brown, or black) in the wound bed. * Suspected deep tissue injury - Purple or maroon localized area of discolored intact skin or blood-filled blister due to damage of underlying soft tissues from pressure and/or shear. The area may be preceded by tissue that is painful, firm, mushy, boggy, warmer, or cooler as compare to adjacent tissue. * Unable to determine *Source: National Pressure Ulcer Advisory Panel (NPUAP) Use of terms such as suspected, likely, concern for, or probable (associated with a specific diagnosis that is being evaluated, monitored, or treated as if it exists) are acceptable and can be coded in the inpatient setting, when documented at the time of discharge. Thank you, Adriane Simmons RN Extension: [phone] Please use your independent medical judgment in providing your response. THIS QUERY IS PART OF THE PERMANENT MEDICAL RECORD Provider Response: Other Other Diagnosis: left heel unstageable ulcer
--- NOTE | 2021-09-05 10:32 | MHC.CDI.CONC ---
CDI Concurrent Query Documentation Clarification: PHYSICIAN'S DOCUMENTATION REQUEST Date of Query: 09/05/21 1033 Patient Name: Vladimir Flynn Admit Date: 09/04/21 Dear Doctor, A review of the medical record indicates additional documentation may be indicated. Please review below and update the documentation accordingly. Clinical Indicators: Risk Factors/Clinical Indicators/Treatments Left heel: unstageable ulcer Right heel: malodorous ulcer Per H&P: non healing OM of right and possibly left ankle Based on the above, could you please provide, in the Progress Notes, further information regarding the ulcer/wound: Type (etiology) of ulcer/wound: Venous stasis ulcer Arterial (ischemic) ulcer Pressure (decubitus) ulcer Traumatic wound Other Unable to determine For a non-pressure ulcer, please indicate the depth/severity: Limited to the breakdown of skin With fat layer exposed With necrosis of muscle With necrosis of bone Other Unable to determine If a pressure ulcer, please also include the stage* of the ulcer: Stage 1 - Skin intact, non-blanchable redness Stage 2 - Partial thickness loss of dermis, includes intact or open blister Stage 3 - Full thickness tissue not including bone, tendon, or muscle Stage 4 - Full thickness tissue loss, including exposed bones, tendon, or muscle Unstageable - Full thickness tissue loss in which the base of the ulcer is covered by slough (yellow, momin, perez, green or brown) and/or eschar (momin, brown, or black) in the wound bed. Suspected deep tissue injury - Purple or maroon localized area of discolored intact skin or blood-filled blister due to damage of underlying soft tissues from pressure and/or shear. The area may be preceded by tissue that is painful, firm, mushy, boggy, warmer, or cooler as compare to adjacent tissue. Unable to determine *Source: National Pressure Ulcer Advisory Panel (NPUAP) Use of terms such as suspected, likely, concern for, or probable (associated with a specific diagnosis that is being evaluated, monitored, or treated as if it exists) are acceptable and can be coded in the inpatient setting, when documented at the time of discharge. Thank you, Adriane Simmons RN Extension: [phone] Please use your independent medical judgment in providing your response. THIS QUERY IS PART OF THE PERMANENT MEDICAL RECORD Provider Response: Other Other Diagnosis: left heel unstageable ulcer
[2021-09-05 11:57] VITALS: BP 106/70; PULSE 62; RESP 18; TEMP 36.8; O2SAT 95
--- NOTE | 2021-09-05 12:54 | W.PM.IDCN ---
History of Present Illness Data of Consult Service Date: 09/05/21 Requesting physician: Rajendra Holman Primary Care Provider: Kirk Randle MD HPI Reason for consult: osteomyelitis right heel He presents to hospital with right heel discomfort and lack of healing. He had seen me as outpatient and received po Bactrim for heel not healing for several months. It did not improve and couldnt get PA for IV antibiotics as outpatient so he comes to ER. 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 Family History Family History Father CAD (coronary artery disease) Family history: reviewed and not pertinent Social History Social History Household Members: Friend(s) Housing: Condominium Alcohol intake: unknown Patient Tobacco Use Status: Never used Tobacco Use of substances other than those prescribed or required for medical reasons: Yes Substance Use Type: Marijuana Substance Use Frequency: Socially Last Used Substance: Weeks (ago) Currently Displaying Signs/Symptoms of Drug Intoxication Withdrawal: No Any prior treatment program specific to substance use: No Have you been hit, kicked, punched, or otherwise hurt by someone within the past year? If so, by whom?: No Do you feel safe in your current relationship?: No Is there a partner from a previous relationship who is making you feel unsafe now?: No Are you made to feel afraid or neglected: No Advance Directives: No Advance Directives Information Provided: No Do you have thoughts of harming others: None Do you have a plan to hurt others: No Plan Recently lost weight without trying: No How much weight loss: Not applicable Eating poorly because of decreased appetite: No Nutrition screen score: 0 Nutrition Risks: No Nutritional Risk service: No Current occupational status: retired Meds Allergies Allergy/AdvReac Type Severity Reaction Status Date / Time clopidogrel [From PLAVIX] Allergy Unknown RASH Verified 08/25/21 10:26 Active Medications: Current Medications Acetaminophen (Acetaminophen 325 Mg Tablet) 650 mg PO Q6H PRN PRN Reason: Pain, Mild (Pain Scale 1-3) Ascorbic Acid (Ascorbic Acid 500 Mg Tablet) 500 mg PO DAILY [facility] Last Admin: 09/05/21 09:23 Dose: 500 mg Documented by: Atorvastatin Calcium (Atorvastatin Calcium 20 Mg Tablet) 20 mg PO BEDTIME [facility] Ferrous Sulfate (Ferrous Sulfate 324 Mg Tablet.) 324 mg PO DAILY [facility] Last Admin: 09/05/21 09:23 Dose: 324 mg Documented by: Furosemide (Furosemide 20 Mg Tablet) 20 mg PO DAILY [facility]; Protocol Last Admin: 09/05/21 09:23 Dose: 20 mg Documented by: Vancomycin HCl 1,250 mg/ (Sodium Chloride) 250 mls @ 166.667 mls/hr IV Q24H [facility] Metoprolol Tartrate (Metoprolol Tartrate 25 Mg Tablet) 25 mg PO BID [facility]; Protocol Last Admin: 09/05/21 09:23 Dose: 25 mg Documented by: Multivitamins/Vitamin C (Multivitamin Tablet) 1 tab PO DAILY [facility] Last Admin: 09/05/21 09:22 Dose: 1 tab Documented by: Pharmacy Consult (Consult Rx Perform Med Rec) 1 each MISCELLANE ONCE PRN PRN Reason: Consult order Pharmacy Consult (Consult Rx Perform Med Rec) 1 each MISCELLANE ONCE PRN PRN Reason: Consult order Pharmacy Consult (Consult Rx Vancomycin Dosing) 1 each MISCELLANE DAILY PRN PRN Reason: Consult order Sodium Chloride (0.9 % Sodium Chloride Flush 3 Ml Syringe) 3 ml IVFLUSH QSHIFT [facility] Last Admin: 09/05/21 09:24 Dose: 3 ml Documented by: Home Medications Medication Instructions Recorded Confirmed Last Taken Type sulfamethoxazole 800 1 tab PO BID 10/13/20 09/04/21 09/04/21 History mg-trimethoprim 160 mg tablet calcium carb-mag ox-zinc sulf 1 tab PO DAILY 02/09/21 09/04/21 Unknown History acetaminophen 650 mg 650 mg PO Q12H PRN 05/25/21 09/04/21 09/04/21 History tablet,extended release furosemide 20 mg tablet 20 mg PO DAILY 05/25/21 09/04/21 09/04/21 History metoprolol tartrate 25 mg tablet 25 mg PO BID 05/25/21 09/04/21 09/04/21 History atorvastatin 20 mg tablet 20 mg PO DAILY 06/05/21 09/04/21 09/04/21 History B-complex with vitamin C 1 tab PO DAILY 09/04/21 09/04/21 09/04/21 History ascorbic acid (vitamin C) 500 mg 500 mg PO DAILY 09/04/21 09/04/21 09/04/21 History tablet coenzyme Q10 10 mg capsule 10 mg PO TID 09/04/21 09/04/21 09/04/21 History ferrous sulfate 325 mg (65 mg 325 mg PO DAILY 09/04/21 09/04/21 09/04/21 History iron) tablet omega 6-ogy-ple-fish oil 1,000 mg 1 cap PO DAILY 09/04/21 09/04/21 09/04/21 History (120 mg-180 mg) capsule (Fish Oil) saw palmetto 500 mg capsule 500 mg PO BID 09/04/21 09/04/21 09/04/21 History vitamin E 400 unit capsule 400 unit PO DAILY 09/04/21 09/04/21 09/04/21 History warfarin 5 mg tablet (Jantoven) 2.5 tab PO MOTUWETHFRSA@0900 09/04/21 09/04/21 09/04/21 History Physical Exam Vital Signs: Vital Signs: Last Vital Signs Temp 98.2 F 09/05/21 11:57 Pulse 62 09/05/21 11:57 Resp 18 09/05/21 11:57 BP 106/70 09/05/21 11:57 Pulse Ox 95 09/05/21 11:57 BMI result Body Mass Index 24.3 Const: General: cooperative Eyes: General: appearance normal, both eyes and all related structures Pupils: Equal, round and reactive pupils present Resp: Effort & Inspection: normal respiratory effort Cardio: Rate: regular rate Rhythm: regular rhythm GI: Inspection: Yes normal to inspection Skin: General skin exam: no rashes or lesions noted Neuro: Other: neuropathy feet Cranial nerves: Yes Equal, round and reactive pupils present Extrem: Other: 1 cm ulcer lateral foot near heel,right Results Labs CBC & Chem 7: 09/05/21 05:37 09/05/21 05:37 Labs: Short CBC 09/05/21 Range/Units 05:37 WBC 7.8 (4.8-10.8) X10*3/uL Hgb 13.1 L (14.0-18.0) g/dl Hct 41.1 L (42.0-52.0) % Plt Count 256 (160-400) X10*3/uL BMP 09/05/21 05:37 Sodium 141 Potassium 4.3 Chloride 109 H Carbon Dioxide 27 BUN 19 H Creatinine 1.20 Calcium 9.6 Microbiology Microbiology Results: Microbiology 09/04/21 10:01 Blood - Venous Blood Culture - Preliminary No growth after 24 hours. 09/04/21 10:01 Blood - Venous Blood Culture - Preliminary No growth after 24 hours. Assessment and Plan (1) Osteomyelitis: Qualifiers: Osteomyelitis location: multiple sites Osteomyelitis type: other Qualified Code(s): M86.8X0 - Other osteomyelitis, multiple sites Status: Acute He has heel infection He has possible strep or staph He needs fpc IV 6 weeks IV Vancomycin treat staph and strep Weekly trough and creatinine and ESR only See as outpatient followup and Wound Care sees
[2021-09-05] MEDS: vancomycin HCL 1,250 MG in 0.9 % Sodium Chloride 250 ML 166.67 MG IV (14:01)
[2021-09-05 15:38] VITALS: BP 100/78; PULSE 79; RESP 20; TEMP 36.8; O2SAT 98
[2021-09-05 18:30] VITALS: BP 118/73; PULSE 73; RESP 17; TEMP 36.8; O2SAT 96
[2021-09-05 20:22] VITALS: BP 118/73; PULSE 73
[2021-09-05] MEDS: Atorvastatin Calcium 20 MG TABLET PO (20:22)
[2021-09-06] VITALS (8 sets, daily range): BP systolic 99–134; BP diastolic 62–84; PULSE 66–84; RESP 17–18; TEMP 36.1–36.8; O2SAT 96–98
[2021-09-06 05:50] LABS: Hematocrit 41.2 % (42.0-52.0); Hemoglobin 13.3 g/dl (14.0-18.0); Mean Corpuscular HGB Conc 32.3 g/dl (31.0-36.0); Mean Corpuscular Hemoglobin 29.6 pg (27.0-33.0); Mean Corpuscular Volume 91.8 fL (80.0-98.0); Mean Platelet Volume 10.5 fL (9.4-12.4); Platelet Count 276 X10*3/uL (160-400); Red Blood Count 4.49 X10*6/uL (4.60-5.80); Red Cell Distribution Width 14.6 % (11.0-16.0)
[2021-09-06 05:57] LABS: INTERNATIONAL NORM RATIO 4.4 (0.9-1.1); Prothrombin Time 52.2 SEC (9.9-13.0)
[2021-09-06 06:11] LABS: Anion Gap 9 (12-20); Blood Urea Nitrogen 21 mg/dL (9-16); Calcium 9.4 mg/dL (8.4-10.2); Carbon Dioxide 26 mmol/L (22-29); Chloride 108 mmol/L (96-108); Creatinine Clr Calc Pharmacy 66.2; Estimated Glomerular Filt Rate > 60; Glucose Fasting 92 mg/dL (60-99); Sodium 139 mmol/L (135-145)
[2021-09-06] MEDS: Multivitamin TABLET 1 TAB PO (08:52)
[2021-09-06] MEDS: Ascorbic Acid 500 MG TABLET PO (08:52)
[2021-09-06] MEDS: Metoprolol Tartrate 25 MG TABLET PO ×2 (08:53→20:01)
[2021-09-06] MEDS: Ferrous Sulfate 324 MG TABLET.DR PO (08:53)
[2021-09-06] MEDS: Furosemide 20 MG TABLET PO (08:53)
[2021-09-06] MEDS: 0.9 % Sodium Chloride Flush 3 ML SYRINGE IVFLUSH ×2 (08:54→18:19)
[2021-09-06 10:13] LABS: Vancomycin Random 6.7 mcg/mL (15-20)
--- NOTE | 2021-09-06 10:35 | P.PNIM_ITS ---
Subjective Subjective Date of Service: 09/06/21 Interval History: the patient was seen and evaluated this morning Laying in bed, feels Agitated as he wants to leave the hospital today Still waiting on finalizing blood culture and to place a PICC line Denies any fever, chills or shortness of breath No reported other overnight events. Systemic review: No fever, chills or weakness No chest pain, palpitation No shortness of breath or coughing No abdominal pain, nausea or vomiting No urinary symptoms foot infection, covered with dressing Physical Exam Vital Signs: Vital Signs: Last Vital Signs Temp 96.9 F 09/06/21 07:26 Pulse 84 09/06/21 07:26 Resp 18 09/06/21 07:26 BP 123/84 09/06/21 07:26 Pulse Ox 96 09/06/21 07:26 BMI result Body Mass Index 24.3 Const: Other: Appearance: Alert. Oriented X3. No acute distress. Eyes: Pupils equal, round and reactive to light. ENT: Pharynx normal. Neck: Normal inspection. Neck supple. No lymph nodes noted. No crepitus CVS: Normal heart rate and rhythm. Pulses normal. Normal S1 and S2 Respiratory: No respiratory distress. Breath sounds normal. No Wheezing. No rales Abdomen: Soft and nontender. No rigidity. No distention. Skin: Skin warm and dry. Extremities below Extremities: Patient has an unstageable ulcer in the left heel, right heel ulcers seems infected, draining malodorous discharge Neuro: Oriented X 3. No motor deficit. No sensory deficit. Moving all extermities. No slurred speech. Objective Data Active Medications Acetaminophen (Acetaminophen 325 Mg Tablet) 650 mg PO Q6H PRN PRN Reason: Pain, Mild (Pain Scale 1-3) Ascorbic Acid (Ascorbic Acid 500 Mg Tablet) 500 mg PO DAILY [facility] Last Admin: 09/06/21 08:52 Dose: 500 mg Documented by: MARCELA Atorvastatin Calcium (Atorvastatin Calcium 20 Mg Tablet) 20 mg PO BEDTIME [facility] Last Admin: 09/05/21 20:22 Dose: 20 mg Documented by: RAMIREZ Ferrous Sulfate (Ferrous Sulfate 324 Mg Tablet.) 324 mg PO DAILY [facility] Last Admin: 09/06/21 08:53 Dose: 324 mg Documented by: MARCELA Furosemide (Furosemide 20 Mg Tablet) 20 mg PO DAILY [facility]; Protocol Last Admin: 09/06/21 08:53 Dose: 20 mg Documented by: MARCELA Vancomycin HCl 1,000 mg/Vancomycin HCl 750 mg/ Sodium Chloride 535 mls @ 267.5 mls/hr IV Q24H LINDA Metoprolol Tartrate (Metoprolol Tartrate 25 Mg Tablet) 25 mg PO BID [facility]; Protocol Last Admin: 09/06/21 08:53 Dose: 25 mg Documented by: MARCELA Multivitamins/Vitamin C (Multivitamin Tablet) 1 tab PO DAILY [facility] Last Admin: 09/06/21 08:52 Dose: 1 tab Documented by: MARCELA Pharmacy Consult (Consult Rx Perform Med Rec) 1 each MISCELLANE ONCE PRN PRN Reason: Consult order Pharmacy Consult (Consult Rx Perform Med Rec) 1 each MISCELLANE ONCE PRN PRN Reason: Consult order Pharmacy Consult (Consult Rx Vancomycin Dosing) 1 each MISCELLANE DAILY PRN PRN Reason: Consult order Sodium Chloride (0.9 % Sodium Chloride Flush 3 Ml Syringe) 3 ml IVFLUSH QSHIFT LINDA Last Admin: 09/06/21 08:54 Dose: 3 ml Documented by: MARCELA Labs CBC & Chem 7: 09/06/21 05:37 09/06/21 05:37 Labs: Laboratory Results - last 24 hr 09/06/21 09/06/21 09/06/21 05:37 05:37 05:37 MCV 91.8 MCH 29.6 MCHC 32.3 RDW 14.6 Plt Count 276 MPV 10.5 Absolute Nucleated RBC 0.000 Nucleated RBC % (auto) 0.0 PT 52.2 H INR 4.4 H Anion Gap 9 L Estim Creat Clear Calc 66.2 Estimated GFR > 60 Fasting Glucose 92 Calcium 9.4 Random Vancomycin 09/06/21 09:39 MCV MCH MCHC RDW Plt Count MPV Absolute Nucleated RBC Nucleated RBC % (auto) PT INR Anion Gap Estim Creat Clear Calc Estimated GFR Fasting Glucose Calcium Random Vancomycin 6.7 L Microbiology Microbiology Results: Microbiology 09/04/21 10:01 Blood Culture - Preliminary Blood - Venous No growth after 24 hours. 09/04/21 10:01 Blood Culture - Preliminary Blood - Venous No growth after 24 hours. Assessment and Plan (1) Osteomyelitis: Status: Acute Assessment and Plan: ?81M presented with non heeling OM non heeling OM of right and possibly left ankle continue iv vanco, with a plan for discharge on IV vancomycin per ID recommendations wound care monitor trough, bmp atrial fibrillation, suspect paroxysmal Supratherapeutic INR continue lopressor hold coumadin INR of 4.2, goal (2-3) DVT PPX Warfarin Quality Stroke Does the patient have a stroke diagnosis?: No VTE Prior VTE?: No VTE Risk Level:: Medical - moderate - high VTE Device Contraindication: Treatment Not Indicated VTE Drug Contraindication: N/A - Med Ordered
[2021-09-06] MEDS: vancomycin HCL 1,000 MG, vancomycin HCL 750 MG in 0.9 % Sodium Chloride 500 ML 267.5 MG IV (11:55)
--- NOTE | 2021-09-06 12:54 | MHC.CM.PN ---
EMR REVIEWED, PT'S BC'S CAME BACK NEGATIVE, PICC LINE TO BE PLACED TODAY W/PLAN FOR VANCO TROUGH TOMORROW AND THEN D/C, [facility] AND [facility] UPDATED, CM RECEIVED CALL FROM [facility] NURSE AT 12:45PM TO DISCUSS PLAN. CM HAS REQUESTED [facility] DO A TEACH LATER THIS AFTERNOON OR TOMORROW MORNING, AWAITING RESPONSE, PT DOES HAVE ASSISTANCE OF Brynn SAMPSON WHO WAS A CONTACT LENS ASSISTANT AND CAPABLE OF LEARNING/ASSISTIING. D/C PLAN: HOME TOMORROW W/[facility] AND [facility] FOR HI, S.O. FOR TRANSPORT.
--- NOTE | 2021-09-06 13:38 | P.DS_ITS ---
DS: Providers Provider Date of Service: 09/07/21 Date of admission: 09/04/21 12:50 Date of discharge: 09/07/21 Primary care physician: Kirk Randle MD Consults: 09/04/21 12:47 Consult to Infectious Diseases Routine Consulting Provider: Ileana Renee Reason for consultation: OM DS: Diagnosis Discharge Diagnosis (1) Osteomyelitis: Status: Acute DS: Summary Hospital Course Hospital Course: Admission note HPI 81M ? 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 was being treated with bactrim and doxy as outpatient due to non converage for apro. however, wound care noted no improvement so sent patient to ID, who recommended sending patient to ED to set up for IV vanco. patient himself does not note any worsening, he says if anything it has improved.? denies fever and chills.? x- rays in ED, concerning for bilateral ankle OM. Hospital Course The patient was admitted for worsening wound. Started on IV antibiotics of vancomycin Zosyn. Evaluated by infectious disease specialist who recommended total of 6 weeks of IV antibiotics for treatment for osteomyelitis. Patient will be discharged on daptomycin for 45 more days. To follow-up with wound clinic and ID as outpatient. Time Spent with Patient Time attestation: Total time spent providing and/or coordinating discharge services: Discharge coordination time: Greater than 30 minutes Quality: Stroke Does the patient have a stroke diagnosis?: No Physical Exam Vital Signs: Vital Signs: Last Vital Signs Temp 98.1 F 09/06/21 11:21 Pulse 74 09/06/21 11:21 Resp 18 09/06/21 11:21 BP 99/65 09/06/21 11:21 Pulse Ox 97 09/06/21 11:21 BMI result Body Mass Index 24.3 Const: Other: Appearance: Alert. Oriented X3. No acute distress. Eyes: Pupils equal, round and reactive to light. ENT: Pharynx normal. Neck: Normal inspection. Neck supple. No lymph nodes noted. No crepitus CVS: Normal heart rate and rhythm. Pulses normal. Normal S1 and S2 Respiratory: No respiratory distress. Breath sounds normal. No Wheezing. No rales Abdomen: Soft and nontender. No rigidity. No distention. Skin: Skin warm and dry. Extremities below Extremities: Patient has an unstageable ulcer in the left heel, right heel ulcers seems infected, draining malodorous discharge Neuro: Oriented X 3. No motor deficit. No sensory deficit. Moving all exterm ities. No slurred speech. DS: Data Data Completed and Pending Labs on day of discharge: Laboratory Results - last 24 hr 09/06/21 09/06/21 09/06/21 05:37 05:37 05:37 WBC 9.0 RBC 4.49 L Hgb 13.3 L Hct 41.2 L MCV 91.8 MCH 29.6 MCHC 32.3 RDW 14.6 Plt Count 276 MPV 10.5 Absolute Nucleated RBC 0.000 Nucleated RBC % (auto) 0.0 PT 52.2 H INR 4.4 H Sodium 139 Potassium 4.0 Chloride 108 Carbon Dioxide 26 Anion Gap 9 L BUN 21 H Creatinine 1.08 Estim Creat Clear Calc 66.2 Estimated GFR > 60 Fasting Glucose 92 Calcium 9.4 Random Vancomycin 09/06/21 09:39 WBC RBC Hgb Hct MCV MCH MCHC RDW Plt Count MPV Absolute Nucleated RBC Nucleated RBC % (auto) PT INR Sodium Potassium Chloride Carbon Dioxide Anion Gap BUN Creatinine Estim Creat Clear Calc Estimated GFR Fasting Glucose Calcium Random Vancomycin 6.7 L Preliminary micro results at discharge 09/04/21 10:01 Blood Culture - Preliminary Blood - Venous No growth after 48 hours. 09/04/21 10:01 Blood Culture - Preliminary Blood - Venous No growth after 48 hours. Discharge Plan Discharge Patient Disposition: Home Health Service Discharge Diagnosis: osteomyelitis Referrals: [facility] [Other] - 1 Week (PLEASE CALL LISANDRO AT [phone] SO SHE CAN WALK YOU THROUGH YOUR FIRST DOSE. ) [facility] [Outside] - 3-5 Days (PICC LINE MANAGEMENT, WOUND CARE) Kirk Randle MD [Primary Care Provider] - 1 Week Discharge Medications: New daptomycin 500 mg recon soln 500 mg IV Q24H Qty: 45 RF: 0 Continued coenzyme Q10 10 mg Capsule 10 mg PO TID RF: 0 ascorbic acid (vitamin C) 500 mg Tablet 500 mg PO DAILY RF: 0 ferrous sulfate 325 mg (65 mg iron) Tablet 325 mg PO DAILY RF: 0 warfarin [Jantoven] 5 mg tablet 2.5 tab PO MOTUWETHFRSA@0900 RF: 0 saw palmetto 500 mg Capsule 500 mg PO BID RF: 0 vitamin E 400 unit Capsule 400 unit PO DAILY RF: 0 B-complex with vitamin C Tablet 1 tab PO DAILY RF: 0 omega 3-gvm-qcu-fish oil [Fish Oil] 1,000 mg (120 mg-180 mg) Capsule 1 cap PO DAILY RF: 0 calcium carb-mag ox-zinc sulf 1 tab PO DAILY RF: 0 metoprolol tartrate 25 mg tablet 25 mg PO BID RF: 0 acetaminophen 650 mg tablet extended release 650 mg PO Q12H PRN (Reason: Pain (Scale Score 4-6)) RF: 0 furosemide 20 mg tablet 20 mg PO DAILY RF: 0 warfarin 5 mg tablet 5 mg PO DAILY Qty: 90 RF: 0 atorvastatin 20 mg tablet 20 mg PO DAILY RF: 0 Discontinued sulfamethoxazole-trimethoprim 800-160 mg tablet 1 tab PO BID RF: 0 Discharge Orders: Discharge Order (Routine); Ordered 09/07/21 Ordered By: Esha Whitmore Diet: advance to usual diet Activity on Discharge: As tolerated Stand Alone Forms: Patient Portal Discharge page Activity Restrictions/Additional Instructions: Wound Care Instructions: Cleanse bilateral heel ulcers with wound cleanser or normal saline, apply Triad on edges of both wounds then cut pieces of silver alginate to fit each wound bed cover with non woven gauze and roll gauze. To be changed every 2 days. Care Plan Goals: Read below Health Concerns: Read below Plan of Treatment: Read below Assessment: you were admitted to the hospital for evaluation of foot wound. Started on IV antibiotics as the wound culture grew MRSA and Enterococcus. Evaluated by infectious disease specialist who recommended 6 weeks of treatment with IV antibiotics. To be discharged home daptomycin to finish 45 more days. To follow-up with wound clinic and infectious disease clinic as scheduled.
--- NOTE | 2021-09-06 13:43 | MHC.CLN ---
NUTRITION CONSULT FOR SKIN. OSTEOMYELITIS, NOT PRESSURE. APPEARS TO BE EATING WELL, 50-100%. NO NEW NUTRITION INTERVENTIONS.
--- NOTE | 2021-09-06 15:31 | P.PICC_ITS ---
PICC Line Insertion NPICC Diagnosis: OSTEOMYELITIS Indication: [facility] IV ANTIBIOTICS Pertinent Labs: REVIEWED Technique: Following informed consent including risks, benefits and alternatives and using sterile technique including cap and mask, sterile gown, glove and drape, the LEFT arm was prepped and draped in the usual sterile fashion of full barrier technique with G. Following completion of Chelsea Protocol the skin and soft tissues were anesthetized with 1% Lidocaine plain. Using ultrasound guidance, BASILIC vein access was obtained IN SINGLE ATTEMPT BY THIS RN Over an 0.018 wire through peel-away sheath, a 4-GEORGIAN, PASV, SINGLE LUMEN PICC line was positioned. Catheter length is 48 CM internal length, 0 CM external length, for a total trimmed length of 48 CM. The procedure was performed in S-272. UNABLE TO PERFORM Tip verification by Sofie Enriquez with [facility] DAMIAN DUE TO UNDERLYING ATRIAL FIBRILLATION; CXR ORDERED PER POLICY FOR TIP VERIFICATION. Ultrasound was used to document vein patency and for needle entry. A formal ultrasound picture was recorded. Vascular Nuisance Wildlife Control Operator has NOT released the line for use and it is currently dressed with a StatLock, Tegaderm, and CHG disc. Verification has been performed for blood return and line patency. Arm Circumference: 33 CM Equipment: [employer] POWERPICC SOLO Catheter Type: SINGLE LUMEN, PASV, 4-GEORGIAN Lot #: [id number]
--- NOTE | 2021-09-06 15:37 | MHC.CM.PN ---
CM RECEIVED CONTACTED PT'S [facility] TO DISCUSS D/C PLAN FOR TONIGHT AND [facility] REPORTED THEY WILL NO LONGER PROVIDE SERVICES FOR PT THEY HAVE NO AVAILABILITY TO [facility] UNTIL NEXT WEEK HOWEVER THEY ALSO RESPONDED OVER [facility] AT TIME CM WAS ON THE PHONE WITH THEM SAYING THEY CANNOT PROVIDE SERVICES D/T IV ABX, THIS CM HAS SENT OUT A REFERRAL TO SEVERAL VNA'S TO GET PT A VNA AND HAS RECEIVED 4 DENIALS AT TIME OF THIS NOTE. PT WILL REMAIN INPT UNTIL VNA CAN BE OBTAINED, PT UNAWARE OF THIS D/T BEING OFF UNIT IN IR FOR PICC LINE PLACEMENT. PT WAS RECEIVING TWICE WEEKLY WOUND CARE FROM [facility].
[2021-09-06] MEDS: DAPTOmycin 500 MG in 0.9 % Sodium Chloride 50 ML 100 MG IV (18:19)
[2021-09-06] MEDS: Atorvastatin Calcium 20 MG TABLET PO (20:01)
[2021-09-07 04:00] VITALS: BP 130/78; PULSE 93; RESP 18; TEMP 36; O2SAT 98
[2021-09-07 06:04] LABS: Hematocrit 41.1 % (42.0-52.0); Hemoglobin 13.1 g/dl (14.0-18.0); Mean Corpuscular HGB Conc 31.9 g/dl (31.0-36.0); Mean Corpuscular Hemoglobin 29.4 pg (27.0-33.0); Mean Corpuscular Volume 92.4 fL (80.0-98.0); Mean Platelet Volume 10.4 fL (9.4-12.4); Platelet Count 271 X10*3/uL (160-400); Red Blood Count 4.45 X10*6/uL (4.60-5.80); Red Cell Distribution Width 14.6 % (11.0-16.0); White Blood Count 9.3 X10*3/uL (4.8-10.8)
[2021-09-07 06:18] LABS: Anion Gap 11 (12-20); Blood Urea Nitrogen 23 mg/dL (9-16); Calcium 9.5 mg/dL (8.4-10.2); Carbon Dioxide 25 mmol/L (22-29); Chloride 109 mmol/L (96-108); Creatinine Clr Calc Pharmacy 72.3; Estimated Glomerular Filt Rate > 60; Glucose Random 99 mg/dL (60-115); Potassium 4.2 mmol/L (3.3-5.1); Sodium 141 mmol/L (135-145)
[2021-09-07 06:19] LABS: Prothrombin Time 46.9 SEC (9.9-13.0)
[2021-09-07 07:48] VITALS: BP 121/84; PULSE 82; RESP 16; TEMP 36.3; O2SAT 96
[2021-09-07] MEDS: 0.9 % Sodium Chloride Flush 3 ML SYRINGE IVFLUSH (08:14)
[2021-09-07] MEDS: Ferrous Sulfate 324 MG TABLET.DR PO (08:14)
[2021-09-07 08:15] VITALS: BP 121/84; PULSE 82
[2021-09-07] MEDS: Ascorbic Acid 500 MG TABLET PO (08:15)
[2021-09-07] MEDS: Metoprolol Tartrate 25 MG TABLET PO (08:15)
[2021-09-07] MEDS: Furosemide 20 MG TABLET PO (08:15)
[2021-09-07] MEDS: Multivitamin TABLET 1 TAB PO (08:21)
--- NOTE | 2021-09-07 10:23 | MHC.CM.PN ---
Addendum entered by Marisol Covarrubias RN 09/07/21 14:29: CM UNABLE TO OBTAIN A VNA FOR PT, [facility] WILL PROVIDE OVER THE PHONE NURSING SUPPORT, PT WILL COME INTO [facility] WEEKLY FOR PICC LINE DRESSING CHANGES AND CM SPOKE W/PT'S PCP OFFICE (MARLENI PIRES) AND MESSAGE WILL BE SENT HIGH ALERT REGARDING VNA NEEDS. PT INSISTENT ON CONTINUING W/PLAN TO DISCHARGE AT 2:30PM. 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
[2021-09-07] MEDS: DAPTOmycin 500 MG in 0.9 % Sodium Chloride 50 ML 100 MG IV (12:42)
== END 2021-09-07 14:44 | disposition home health service (06) | DRG 593 ==
LOC: HO.ED 11:53 → HO.EDOVER 16:11 → HO.S3 23:15
PROVIDERS: Emergency Medicine; Admitting Provider Internal Medicine; Emergency Provider Emergency Medicine; PCP Internal Medicine; Visit Provider Student in an Organized Health Care Education/Training Program
DX: L89.620 Pressure ulcer of left heel, unstageable (principal); M86.19 Other acute osteomyelitis, multiple sites; L97.419 Non-pressure chronic ulcer of right heel and midfoot with unspecified severity; R79.1 Abnormal coagulation profile; I48.0 Paroxysmal atrial fibrillation; Z20.822 Contact with and (suspected) exposure to COVID-19; Z86.718 Personal history of other venous thrombosis and embolism; Z23 Encounter for immunization; Z79.01 Long term (current) use of anticoagulants; Z79.899 Other long term (current) drug therapy
CPT/HCPCS: 36415; 36573; 71045; 73650; 80048; 80076; 80202; 83605; 83735; 85025; 85027; 85610; 85652; 86140; 87040; 87635; 90686; 96365; 99285; C1751; J0878; J3370

== ENCOUNTER → 2021-09-12 13:09 | Outpatient (BNVA) | payer MEDICARE, SELFPAY | PROVIDERS: PCP Internal Medicine; Visit Provider Internal Medicine | DX: I48.91 Unspecified atrial fibrillation (principal); Z51.81 Encounter for therapeutic drug level monitoring; Z79.01 Long term (current) use of anticoagulants | CPT/HCPCS: Q3014 ==

== ENCOUNTER → 2021-09-19 09:21 | Outpatient (BNVA) | payer MEDICARE, SELFPAY | PROVIDERS: PCP Internal Medicine; Visit Provider Internal Medicine | DX: I48.91 Unspecified atrial fibrillation (principal); Z51.81 Encounter for therapeutic drug level monitoring; Z79.01 Long term (current) use of anticoagulants | CPT/HCPCS: Q3014 ==

== ENCOUNTER → 2021-09-22 10:30 | Outpatient (BNVA) | payer MEDICARE, SELFPAY | PROVIDERS: PCP Nurse Practitioner Family; Visit Provider Internal Medicine | DX: M86.8X0 Other osteomyelitis, multiple sites (principal) | CPT/HCPCS: 99212 ==

== ENCOUNTER → 2021-09-26 11:22 | Outpatient (BNVA) | payer MEDICARE, SELFPAY | PROVIDERS: PCP Internal Medicine; Visit Provider Internal Medicine | DX: I48.91 Unspecified atrial fibrillation (principal); Z51.81 Encounter for therapeutic drug level monitoring; Z79.01 Long term (current) use of anticoagulants | CPT/HCPCS: Q3014 ==

== ENCOUNTER → 2021-10-04 11:30 | Outpatient (BNVA) | payer MEDICARE, SELFPAY | PROVIDERS: PCP Internal Medicine; Visit Provider Internal Medicine | DX: I48.91 Unspecified atrial fibrillation (principal); Z51.81 Encounter for therapeutic drug level monitoring; Z79.01 Long term (current) use of anticoagulants | CPT/HCPCS: Q3014 ==

== ENCOUNTER → 2021-10-09 15:16 | Outpatient (BNVA) | payer MEDICARE, SELFPAY | PROVIDERS: Visit Provider Internal Medicine ==

== ENCOUNTER → 2021-10-11 14:44 | Outpatient (BNVA) | payer MEDICARE, SELFPAY | PROVIDERS: PCP Internal Medicine; Visit Provider Internal Medicine | DX: I48.91 Unspecified atrial fibrillation (principal); Z51.81 Encounter for therapeutic drug level monitoring; Z79.01 Long term (current) use of anticoagulants | CPT/HCPCS: Q3014 ==

== ENCOUNTER → 2021-10-17 13:01 | Outpatient (BNVA) | payer MEDICARE, SELFPAY | PROVIDERS: Visit Provider Internal Medicine | DX: M86.8X0 Other osteomyelitis, multiple sites (principal) | CPT/HCPCS: 99212 ==

== ENCOUNTER → 2021-10-18 14:52 | Outpatient (BNVA) | payer MEDICARE, SELFPAY | PROVIDERS: Visit Provider Internal Medicine | DX: I48.91 Unspecified atrial fibrillation (principal) | CPT/HCPCS: Q3014 ==

== ENCOUNTER 2021-10-24 13:43 | Outpatient (REF) | payer MEDICARE, SELFPAY ==
--- NOTE | ~2021-10-24 | IR_ITS ---
EXAMINATION: PICC LINE REMOVAL. CLINICAL INFORMATION: PICC line is not needed. Initially inserted from osteomyelitis and long-term antibiotic therapy. COMPARISON: PICC line placement with chest x-ray on 09/06/2021. IR/IR cvc remove any age FINDINGS/IMPRESSION: The entire PICC line approximately 33 cm long was removed without any incident. Sterile dressing was applied postprocedure. There were no immediate complications.
== END 2021-10-24 13:44 | disposition home or self-care (01) ==
LOC: HO.RADIR 13:43
PROVIDERS: PCP Internal Medicine; Visit Provider Internal Medicine
DX: Z13.89 Encounter for screening for other disorder (principal)

== ENCOUNTER → 2021-10-25 11:05 | Outpatient (BNVA) | payer MEDICARE, SELFPAY | PROVIDERS: Visit Provider Internal Medicine | DX: I48.91 Unspecified atrial fibrillation (principal) | CPT/HCPCS: Q3014 ==

== ENCOUNTER → 2021-11-01 09:16 | Outpatient (BNVA) | payer MEDICARE, SELFPAY | PROVIDERS: Visit Provider Internal Medicine | DX: I48.91 Unspecified atrial fibrillation (principal); Z51.81 Encounter for therapeutic drug level monitoring; Z79.01 Long term (current) use of anticoagulants | CPT/HCPCS: Q3014 ==

== ENCOUNTER → 2021-11-08 08:58 | Outpatient (BNVA) | payer MEDICARE, SELFPAY | PROVIDERS: Visit Provider Internal Medicine | DX: I48.91 Unspecified atrial fibrillation (principal) | CPT/HCPCS: Q3014 ==

== ENCOUNTER → 2021-11-15 09:32 | Outpatient (BNVA) | payer MEDICARE, SELFPAY | PROVIDERS: Visit Provider Internal Medicine | DX: Z13.89 Encounter for screening for other disorder (principal) ==

== ENCOUNTER → 2021-11-22 09:16 | Outpatient (BNVA) | payer MEDICARE, SELFPAY | PROVIDERS: Visit Provider Internal Medicine | DX: Z13.89 Encounter for screening for other disorder (principal) ==

== ENCOUNTER → 2021-11-23 10:47 | Outpatient (BNVA) | payer MEDICARE, SELFPAY | PROVIDERS: Visit Provider Internal Medicine | DX: I48.91 Unspecified atrial fibrillation (principal); Z79.01 Long term (current) use of anticoagulants; Z51.81 Encounter for therapeutic drug level monitoring | CPT/HCPCS: 99211 ==

== ENCOUNTER → 2021-11-24 09:33 | Outpatient (BNVA) | payer MEDICARE, SELFPAY | PROVIDERS: Visit Provider Internal Medicine | DX: I48.91 Unspecified atrial fibrillation (principal); Z79.01 Long term (current) use of anticoagulants; Z51.81 Encounter for therapeutic drug level monitoring | CPT/HCPCS: Q3014 ==

== ENCOUNTER → 2021-12-01 10:15 | Outpatient (BNVA) | payer MEDICARE, SELFPAY | PROVIDERS: Visit Provider Internal Medicine | DX: I48.91 Unspecified atrial fibrillation (principal); Z51.81 Encounter for therapeutic drug level monitoring; Z79.01 Long term (current) use of anticoagulants | CPT/HCPCS: Q3014 ==

== ENCOUNTER → 2021-12-08 09:40 | Outpatient (BNVA) | payer MEDICARE, SELFPAY | PROVIDERS: Visit Provider Internal Medicine | DX: I48.91 Unspecified atrial fibrillation (principal); Z51.81 Encounter for therapeutic drug level monitoring; Z79.01 Long term (current) use of anticoagulants | CPT/HCPCS: Q3014 ==

== ENCOUNTER → 2021-12-15 10:27 | Outpatient (BNVA) | payer MEDICARE, SELFPAY | PROVIDERS: Visit Provider Internal Medicine | DX: Z13.89 Encounter for screening for other disorder (principal) ==

== ENCOUNTER → 2021-12-29 09:27 | Outpatient (BNVA) | payer MEDICARE, SELFPAY | PROVIDERS: PCP Internal Medicine; Visit Provider Internal Medicine | DX: Z13.89 Encounter for screening for other disorder (principal) ==

== ENCOUNTER → 2022-01-12 12:00 | Outpatient (BNVA) | payer MEDICARE, SELFPAY | PROVIDERS: PCP Internal Medicine; Visit Provider Internal Medicine | DX: Z13.89 Encounter for screening for other disorder (principal) ==

== ENCOUNTER → 2022-01-26 09:58 | Outpatient (BNVA) | payer MEDICARE, SELFPAY | PROVIDERS: PCP Internal Medicine; Visit Provider Internal Medicine | DX: Z13.89 Encounter for screening for other disorder (principal) ==

== ENCOUNTER → 2022-02-09 13:37 | Outpatient (BNVA) | payer MEDICARE, SELFPAY | PROVIDERS: PCP Internal Medicine; Visit Provider Internal Medicine | DX: Z79.01 Long term (current) use of anticoagulants (principal) ==

== ENCOUNTER → 2022-02-23 09:45 | Outpatient (BNVA) | payer MEDICARE, SELFPAY | PROVIDERS: PCP Internal Medicine; Visit Provider Internal Medicine | DX: I48.91 Unspecified atrial fibrillation (principal); Z79.01 Long term (current) use of anticoagulants; Z51.81 Encounter for therapeutic drug level monitoring | CPT/HCPCS: Q3014 ==

== ENCOUNTER → 2022-04-06 09:32 | Outpatient (BNVA) | payer MEDICARE, SELFPAY | PROVIDERS: PCP Internal Medicine; Visit Provider Internal Medicine | DX: I48.91 Unspecified atrial fibrillation (principal); Z79.01 Long term (current) use of anticoagulants; Z51.81 Encounter for therapeutic drug level monitoring | CPT/HCPCS: Q3014 ==

== ENCOUNTER → 2022-04-13 09:53 | Outpatient (BNVA) | payer MEDICARE, SELFPAY | PROVIDERS: PCP Internal Medicine; Visit Provider Internal Medicine | DX: I48.91 Unspecified atrial fibrillation (principal); Z79.01 Long term (current) use of anticoagulants; Z51.81 Encounter for therapeutic drug level monitoring | CPT/HCPCS: Q3014 ==

== ENCOUNTER → 2022-08-06 17:27 | Outpatient (BNVA) | payer MEDICARE, SELFPAY | PROVIDERS: PCP Internal Medicine; Visit Provider Internal Medicine | DX: I48.91 Unspecified atrial fibrillation (principal); Z79.01 Long term (current) use of anticoagulants; Z51.81 Encounter for therapeutic drug level monitoring | CPT/HCPCS: 99211 ==

== ENCOUNTER → 2022-08-13 14:23 | Outpatient (BNVA) | payer MEDICARE, SELFPAY | PROVIDERS: PCP Internal Medicine; Visit Provider Internal Medicine | DX: I48.91 Unspecified atrial fibrillation (principal); Z79.01 Long term (current) use of anticoagulants; Z51.81 Encounter for therapeutic drug level monitoring | CPT/HCPCS: 85610; 99211 ==

== ENCOUNTER → 2022-08-28 11:59 | Outpatient (RCR) | payer MEDICARE, SELFPAY ==
--- NOTE | 2021-09-11 16:03 | MHC.HEMONC ---
Pt presented for PICC line dsg change, in good spirits, said PICC was inserted 1 week prior. Nurse changed PICC dsg in sterile procedure, noted external length of 1 cm, no bleeding, biodisk and statlock applied prior to applying new tegaderm. Nurse initialed and dated new PICC dsg. pt tolerated procedure well.
--- NOTE | 2021-09-18 16:14 | MHC.HEMONC ---
Pleasant pt arrived for PICC line dsg. LUE PICC dsg appeared intact and clean, no bleeding from insertion site. Nurse removed old dsg, noted external length of 1 cm. Nurse cleaned site, applied new stat lock, bio-disc, and tegaderm in sterile procedure. pt tolerated it well, Nurse signed and dated new PICC dsg.
[2022-08-06 16:52] LABS: MANUAL DIFF FLAG NO
[2022-08-06 17:00] LABS: Basophils Absolute Auto 0.1 X10*3/uL (0.0-0.2); Basophils Percent Auto 0.5 % (0-2); Eosinophils Absolute Auto 0.1 X10*3/uL (0.0-0.4); Eosinophils Percent Auto 1.2 % (0-4); Hemoglobin 16.5 g/dl (14.0-18.0); Imm Gran Abs Auto 0.04 X10*3/uL (0.00-0.03); Imm Gran Pct Auto 0.4 % (0.0-0.4); Lymphocytes Absolute Auto 2.7 X10*3/uL (1.2-4.9); Lymphocytes Percent Auto 28.7 % (20-40); Mean Corpuscular Hemoglobin 30.3 pg (27.0-33.0); Mean Corpuscular Volume 91.7 fL (80.0-98.0); Mean Platelet Volume 10.6 fL (9.4-12.4); Monocytes Absolute Auto 0.7 X10*3/uL (0.1-1.2); Neutrophils Absolute Auto 5.7 x10*3/uL (2.0-8.3); Neutrophils Percent Auto 61.2 % (45-73); Platelet Count 347 X10*3/uL (160-400); Red Blood Count 5.45 X10*6/uL (4.60-5.80); Red Cell Distribution Width 13.4 % (11.0-16.0); White Blood Count 9.3 X10*3/uL (4.8-10.8)
[2022-08-06 17:16] LABS: INTERNATIONAL NORM RATIO 3.7 (0.9-1.1); Prothrombin Time 45.1 SEC (10.0-13.1)
[2022-08-06 17:55] LABS: Anion Gap 12 (12-20); Blood Urea Nitrogen 29 mg/dL (9-16); C Reactive Protein 3.44 mg/dL (< or = 0.50); Calcium 9.8 mg/dL (8.4-10.2); Carbon Dioxide 27 mmol/L (22-29); Chloride 102 mmol/L (96-108); Estimated Glomerular Filt Rate 57; Glucose Random 89 mg/dL (60-115); Potassium 4.7 mmol/L (3.3-5.1); Sodium 136 mmol/L (135-145)
[2022-08-06 17:59] LABS: Erythrocyte Sedimentation Rate 16 MM/HR (0-15)
--- NOTE | ~2022-08-28 | XR_ITS ---
EXAMINATION: XR FOOT, LEFT CLINICAL INFORMATION: Nonhealing wound 5th toe. COMPARISON: None TECHNIQUE: AP, lateral, and oblique views of the left foot. FINDINGS: There is diffuse osteopenia of visualized bones. Prominent vascular calcifications are noted. No acute fracture or dislocation is evident. There is some mild soft tissue swelling seen involving the 5th toe and along the lateral aspect of the 5th tarsometatarsal joint and dorsum of the foot. Evaluation of the distal interphalangeal joints is limited due to flexion of the distal interphalangeal joint. There is degenerative disease with irregularity of the articular surface of the 2nd proximal phalanx. I cannot tell whether there may be a bony erosion about the base of the 5th middle phalanx due to positioning of the toe and calcified vessels present. XR/XR foot LT min 3V IMPRESSION: Diffuse osteopenia. Limitations in evaluation due to flexion of interphalangeal joints. Possible erosion base of the 5th middle phalanx. MRI may be of help in further evaluation of possible osteomyelitis.
--- NOTE | ~2022-08-28 | XR_ITS ---
EXAMINATION: XR CALCANEUS, RIGHT CLINICAL INFORMATION: Nonhealing wound right heel. COMPARISON: None TECHNIQUE: Lateral and axial views of the right calcaneus were obtained. FINDINGS: The lateral view shows loss of cortical white line upper half posterior calcaneus suspicious for osteomyelitis. There is edema in Kager's fat pad with loss of visualization retrocalcaneal recess. There is no gas tracking in the soft tissues. Results called to Dr. Flores at the wound center at 0905 hours on 08/04/2021. XR/XR calcaneus RT min 2V IMPRESSION: Suspicious for osteomyelitis posterior calcaneus.
== END | disposition home or self-care (01) ==
LOC: HO.WCC 05-29 12:11
PROVIDERS: PCP Internal Medicine; Visit Provider Physician Assistant
DX: L97.522 Non-pressure chronic ulcer of other part of left foot with fat layer exposed (principal); I73.9 Peripheral vascular disease, unspecified; M86.172 Other acute osteomyelitis, left ankle and foot; L08.9 Local infection of the skin and subcutaneous tissue, unspecified; M20.42 Other hammer toe(s) (acquired), left foot; M20.41 Other hammer toe(s) (acquired), right foot; Z79.01 Long term (current) use of anticoagulants
CPT/HCPCS: 11042; 11044; 11045; 11047; 15275; 17250; 36415; 73630; 73650; 80048; 84134; 85025; 85610; 85652; 86140; 87040; 97597; 99212; 99213; 99214; Q3014; Q4187

== ENCOUNTER → 2022-08-29 09:36 | Outpatient (BNVA) | payer MEDICARE, SELFPAY | PROVIDERS: PCP Internal Medicine; Visit Provider Internal Medicine | DX: Z79.01 Long term (current) use of anticoagulants (principal) ==

== ENCOUNTER → 2022-09-05 11:34 | Outpatient (BNVA) | payer MEDICARE, SELFPAY | PROVIDERS: PCP Internal Medicine; Visit Provider Internal Medicine | DX: Z79.01 Long term (current) use of anticoagulants (principal) ==

== ENCOUNTER → 2022-09-12 13:47 | Outpatient (BNVA) | payer MEDICARE, SELFPAY | PROVIDERS: PCP Internal Medicine; Visit Provider Internal Medicine | DX: Z79.01 Long term (current) use of anticoagulants (principal) ==

== ENCOUNTER → 2022-09-19 10:04 | Outpatient (BNVA) | payer MEDICARE, SELFPAY | PROVIDERS: PCP Internal Medicine; Visit Provider Internal Medicine | DX: Z79.01 Long term (current) use of anticoagulants (principal) ==

== ENCOUNTER → 2022-10-03 12:12 | Outpatient (BNVA) | payer MEDICARE, SELFPAY | PROVIDERS: PCP Internal Medicine; Visit Provider Internal Medicine | DX: Z79.01 Long term (current) use of anticoagulants (principal) ==

== ENCOUNTER → 2022-10-08 11:35 | Outpatient (BNVA) | payer MEDICARE, SELFPAY | PROVIDERS: PCP Internal Medicine; Visit Provider Internal Medicine | DX: Z79.01 Long term (current) use of anticoagulants (principal) ==

== ENCOUNTER → 2022-10-16 10:34 | Outpatient (BNVA) | payer MEDICARE, SELFPAY | PROVIDERS: PCP Internal Medicine; Visit Provider Internal Medicine | DX: I48.91 Unspecified atrial fibrillation (principal); Z79.01 Long term (current) use of anticoagulants; Z51.81 Encounter for therapeutic drug level monitoring | CPT/HCPCS: 85610; 99211 ==

== ENCOUNTER → 2022-10-22 11:26 | Outpatient (BNVA) | payer MEDICARE, SELFPAY | PROVIDERS: PCP Internal Medicine; Visit Provider Internal Medicine | DX: M79.89 Other specified soft tissue disorders (principal); Z89.422 Acquired absence of other left toe(s) | CPT/HCPCS: 99212 ==

== ENCOUNTER → 2022-10-31 09:59 | Outpatient (BNVA) | payer MEDICARE, SELFPAY | PROVIDERS: PCP Internal Medicine; Visit Provider Internal Medicine | DX: Z79.01 Long term (current) use of anticoagulants (principal) ==

== ENCOUNTER → 2022-11-05 08:43 | Outpatient (BNVA) | payer MEDICARE, SELFPAY | PROVIDERS: PCP Internal Medicine; Visit Provider Internal Medicine | DX: Z79.01 Long term (current) use of anticoagulants (principal) ==

== ENCOUNTER → 2022-11-12 08:44 | Outpatient (BNVA) | payer MEDICARE, SELFPAY | PROVIDERS: PCP Internal Medicine; Visit Provider Internal Medicine | DX: Z79.01 Long term (current) use of anticoagulants (principal) ==

== ENCOUNTER → 2022-11-19 10:47 | Outpatient (BNVA) | payer MEDICARE, SELFPAY | PROVIDERS: PCP Internal Medicine; Visit Provider Internal Medicine | DX: I48.91 Unspecified atrial fibrillation (principal); Z79.01 Long term (current) use of anticoagulants; Z51.81 Encounter for therapeutic drug level monitoring | CPT/HCPCS: 85610; 99211 ==

== ENCOUNTER → 2022-12-11 11:02 | Outpatient (BNVA) | payer MEDICARE, SELFPAY | PROVIDERS: PCP Internal Medicine; Visit Provider Internal Medicine | DX: I48.91 Unspecified atrial fibrillation (principal); Z79.01 Long term (current) use of anticoagulants; Z51.81 Encounter for therapeutic drug level monitoring | CPT/HCPCS: 85610; 99211 ==

== ENCOUNTER → 2023-01-01 11:41 | Outpatient (BNVA) | payer MEDICARE, SELFPAY | PROVIDERS: PCP Internal Medicine; Visit Provider Internal Medicine ==

== ENCOUNTER → 2023-01-23 10:44 | Outpatient (BNVA) | payer MEDICARE, SELFPAY | PROVIDERS: PCP Internal Medicine; Visit Provider Internal Medicine | DX: I48.91 Unspecified atrial fibrillation (principal); Z79.01 Long term (current) use of anticoagulants; Z51.81 Encounter for therapeutic drug level monitoring | CPT/HCPCS: 85610; 99211 ==

== ENCOUNTER → 2023-02-13 09:52 | Outpatient (BNVA) | payer MEDICARE, SELFPAY | PROVIDERS: PCP Internal Medicine; Visit Provider Internal Medicine | DX: I48.91 Unspecified atrial fibrillation (principal); Z51.81 Encounter for therapeutic drug level monitoring; Z79.01 Long term (current) use of anticoagulants | CPT/HCPCS: 85610; 99211 ==

== ENCOUNTER → 2023-03-13 09:49 | Outpatient (BNVA) | payer MEDICARE, SELFPAY | PROVIDERS: PCP Internal Medicine; Visit Provider Internal Medicine | DX: I48.91 Unspecified atrial fibrillation (principal); Z79.01 Long term (current) use of anticoagulants; Z51.81 Encounter for therapeutic drug level monitoring | CPT/HCPCS: 85610; 99211 ==

== ENCOUNTER 2023-03-20 10:40 | Outpatient (AMB) | payer MEDICARE, SELFPAY ==
[2023-03-20 10:48] VITALS: BP 122/70; PULSE 66; O2SAT 98; BMI 26.5
--- NOTE | 2023-03-20 10:48 | A.OFFVIS_ITS ---
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 He has no complaints. [facility] Medical History Atrial fibrillation Bacteremia Dementia DVT of right axillary vein, acute Endocarditis due to Staphylococcus Osteomyelitis Osteomyelitis Wound of foot Family History Father CAD (coronary artery disease) Social History Household Members: Friend(s) Housing: [facility] Alcohol intake: unknown Patient Tobacco Use Status: Never used Tobacco Substance Use Type: Marijuana service: No Current occupational status: retired Review of Systems Const All systems reviewed & are unremarkable except as noted in HPI and below Physical Exam Vital Signs: Last Vital Signs Pulse 66 03/20/23 10:48 BP 122/70 03/20/23 10:48 Pulse Ox 98 03/20/23 10:48 BMI result Body Mass Index 26.5 Const General: cooperative Orientation/consciousness: patient oriented x3 HEENT Head: Yes normal to inspection Mouth: Normal oral and palatal mucosa present Eyes General: appearance normal, both eyes and all related structures Pupils: Equal, round and reactive pupils present Resp Effort & Inspection: normal respiratory effort Cardio Rate: regular rate Rhythm: regular rhythm GI Palpation (GI): Soft to palpation and nontender General: Yes no CVA tenderness Back/Spine/Pelvis Back: no CVA tenderness Skin General skin exam: no rashes or lesions noted Neuro General: patient oriented x3 Cranial nerves: Yes CN's II-XII intact bilaterally and Yes Equal, round and reactive pupils present Extrem Other: healing foot Psych Appearance: grossly normal Assessment & Plan Assessment & Plan (1) Osteomyelitis: Comment: He has no complaints Code(s): M86.9 - Osteomyelitis, unspecified Plan: Would continue antibiotics. See as scheduled. Coding Level of Care Code Est Pt Level 3 (08659) Diagnoses Osteomyelitis M86.9
== END 2023-03-20 11:16 | disposition home or self-care (01) ==
LOC: HO.HID 10:40
PROVIDERS: PCP Internal Medicine; Visit Provider Internal Medicine
DX: M86.9 Osteomyelitis, unspecified (principal)
CPT/HCPCS: 99213

== ENCOUNTER → 2023-03-20 10:40 | Outpatient (BNVA) | payer MEDICARE, SELFPAY | PROVIDERS: PCP Internal Medicine; Visit Provider Internal Medicine | DX: M86.9 Osteomyelitis, unspecified (principal) | CPT/HCPCS: 99212 ==

== ENCOUNTER 2023-04-10 09:59 | Outpatient (AMB) | payer MEDICARE, SELFPAY ==
--- NOTE | 2023-04-10 10:04 | MHC.OFFVISCO ---
Intake Intake Visit Reasons: Anticoagulation Allergies clopidogrel [From PLAVIX] Allergy (Unknown, Verified 04/10/23 10:00) RASH Medication List - Last Reconciled 04/10/23 by Meche Kitchen RN acetaminophen ER 650 mg PO Q12H PRN ascorbic acid (vitamin C) 500 mg PO DAILY atorvastatin 20 mg PO DAILY B-complex with vitamin C 1 tab PO DAILY calcium carb-mag ox-zinc sulf 1 tab PO DAILY coenzyme Q10 10 mg PO TID ferrous sulfate 325 mg PO DAILY furosemide 20 mg PO DAILY metoprolol tartrate 25 mg PO BID omega 9-fck-gmn-fish oil 1,000 mg (120 mg-180 mg) (Fish Oil) 1 cap PO DAILY saw palmetto 500 mg PO BID vitamin E 400 units PO DAILY warfarin (Jantoven) 2.5 tabs See Protocol PO YELITZA@0900 Nursing Note INR: 2.5- in therapeutic range Medications and supplements reviewed- no changes No changes in health, diet, medications, or supplements, Denies any signs and symptoms of bleeding or bruising or clotting. 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
[2023-04-10 10:05] LABS: Prothrombin Time Whole Bld POC 30.5 sec (11.1-13.5); ~PT, ~INR - Anti Coag Clinic 2.5 (0.9-1.1)
== END 2023-04-10 10:09 | disposition home or self-care (01) ==
LOC: HO.ACS 09:59
PROVIDERS: PCP Internal Medicine; Visit Provider Internal Medicine
DX: Z79.01 Long term (current) use of anticoagulants (principal)

== ENCOUNTER → 2023-04-10 09:59 | Outpatient (BNVA) | payer MEDICARE, SELFPAY | PROVIDERS: PCP Internal Medicine; Visit Provider Internal Medicine | DX: I48.91 Unspecified atrial fibrillation (principal); Z79.01 Long term (current) use of anticoagulants; Z51.81 Encounter for therapeutic drug level monitoring | CPT/HCPCS: 85610; 99211 ==

== ENCOUNTER 2023-05-07 13:03 | Outpatient (AMB) | payer MEDICARE, SELFPAY ==
[2023-05-07 13:28] LABS: Prothrombin Time Whole Bld POC 46.8 sec (11.1-13.5); ~PT, ~INR - Anti Coag Clinic 3.9 (0.9-1.1)
--- NOTE | 2023-05-07 13:33 | MHC.OFFVISCO ---
Intake Intake Visit Reasons: Anticoagulation Allergies clopidogrel [From PLAVIX] Allergy (Unknown, Verified 05/07/23 13:23) RASH Medication List - Last Reconciled 05/07/23 by Rosa gO RN acetaminophen ER 650 mg PO Q12H PRN ascorbic acid (vitamin C) 500 mg PO DAILY atorvastatin 20 mg PO DAILY B-complex with vitamin C 1 tab PO DAILY calcium carb-mag ox-zinc sulf 1 tab PO DAILY coenzyme Q10 10 mg PO TID ferrous sulfate 325 mg PO DAILY furosemide 20 mg PO DAILY metoprolol tartrate 25 mg PO BID omega 1-jfu-jrf-fish oil 1,000 mg (120 mg-180 mg) (Fish Oil) 1 cap PO DAILY saw palmetto 500 mg PO BID vitamin E 400 units PO DAILY warfarin (Jantoven) 2.5 tabs See Protocol PO JEANETTEUWETHGRETA@0900 Nursing Note INR 3.9 out of therapeutic range Medications and supplements reviewed Patient status:STATES HE TOOK ALL HIS SUPPLEMENTS LATER THIS AM AND MAY EFFECT HIS INR Medications or supplements: NO OTHER CHANGES Diet: ENC TO REVIEW FOOD LIST WEEKLY Denies any signs and symptoms of bleeding or clotting or unusual bruising Bleeding, bruising, clotting discussed Nutritional guidance given: [place] TODAY AND WEEKLY Dose: ALREADY TOOK TODAY'S DOSE - HOLD TOMORROW THEN RESUME USUAL DOSE 2.5MG DAILY F/U INR Date : 2 WEEKS ?? Patient verbalizing understanding of instructions given. 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
== END 2023-05-07 13:36 | disposition home or self-care (01) ==
LOC: HO.ACS 13:03
PROVIDERS: PCP Internal Medicine; Visit Provider Internal Medicine
DX: Z79.01 Long term (current) use of anticoagulants (principal)

== ENCOUNTER → 2023-05-07 13:03 | Outpatient (BNVA) | payer MEDICARE, SELFPAY | PROVIDERS: PCP Internal Medicine; Visit Provider Internal Medicine | DX: I48.91 Unspecified atrial fibrillation (principal); Z51.81 Encounter for therapeutic drug level monitoring; Z79.01 Long term (current) use of anticoagulants | CPT/HCPCS: 85610; 99211 ==

== ENCOUNTER 2023-05-23 13:56 | Outpatient (AMB) | payer MEDICARE, SELFPAY ==
[2023-05-23 14:17] LABS: Prothrombin Time Whole Bld POC 42.6 sec (11.1-13.5); ~PT, ~INR - Anti Coag Clinic 3.6 (0.9-1.1)
--- NOTE | 2023-05-23 14:24 | MHC.OFFVISCO ---
Intake Intake Visit Reasons: Anticoagulation Allergies clopidogrel [From PLAVIX] Allergy (Unknown, Verified 05/23/23 14:11) RASH Medication List - Last Reconciled 05/23/23 by Carolina Villafuerte, RN acetaminophen ER 650 mg PO Q12H PRN ascorbic acid (vitamin C) 500 mg PO DAILY atorvastatin 20 mg PO DAILY B-complex with vitamin C 1 tab PO DAILY calcium carb-mag ox-zinc sulf 1 tab PO DAILY coenzyme Q10 10 mg PO TID ferrous sulfate 325 mg PO DAILY furosemide 20 mg PO DAILY metoprolol tartrate 25 mg PO BID omega 2-ukz-nid-fish oil 1,000 mg (120 mg-180 mg) (Fish Oil) 1 cap PO DAILY saw palmetto 500 mg PO BID vitamin E 400 units PO DAILY warfarin (Jantoven) 2.5 tabs See Protocol PO YELITZA@0900 Nursing Note Amb to ACS using cane feeling well Medications and supplements reviewed No changes in health, diet, medications, or supplements Denies any unusual signs and symptoms of bruising, bleeding Denies any new Chest pain, SOB, or clotting INR: 3.6 above therapeutic range, has been trending above range Nutritional guidance given: greens today and tomorrow then balance greens and reds in diet Dose: hold warfarin today then resume usual dosing; 2.5mg daily, which is 1/2 of 5mg tablet, if pt continues trending up as he has will need 2.5mg strength tablet as he may need a 1.25mg day F/U INR:2 weeks Patient verbalizes understanding of instructions given with accurate read back/ teach back of dosing Anti-Coag Initial Assessment Social Hx Patient Tobacco Use Status: Never used Tobacco alcohol intake: unknown Coding Level of Care Code Est Patient Level 1 Diagnoses Current use of anticoagulant therapy Z79.01 Time Spent (min) 15 Assessment & Plan Assessment & Plan (1) Current use of anticoagulant therapy: 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
== END 2023-05-23 15:03 | disposition home or self-care (01) ==
LOC: HO.ACS 13:56
PROVIDERS: PCP Internal Medicine; Visit Provider Internal Medicine
DX: Z79.01 Long term (current) use of anticoagulants (principal)

== ENCOUNTER → 2023-05-23 13:56 | Outpatient (BNVA) | payer MEDICARE, SELFPAY | PROVIDERS: PCP Internal Medicine; Visit Provider Internal Medicine | DX: I48.91 Unspecified atrial fibrillation (principal); Z79.01 Long term (current) use of anticoagulants; Z51.81 Encounter for therapeutic drug level monitoring | CPT/HCPCS: 85610; 99211 ==

== ENCOUNTER → 2023-05-29 16:02 | Outpatient (BNVA) | payer MEDICARE, SELFPAY | PROVIDERS: PCP Internal Medicine; Visit Provider Internal Medicine ==

== ENCOUNTER 2023-06-06 10:17 | Outpatient (AMB) | payer MEDICARE, SELFPAY ==
[2023-06-06 10:43] LABS: Prothrombin Time Whole Bld POC 29.3 sec (11.1-13.5); ~PT, ~INR - Anti Coag Clinic 2.4 (0.9-1.1)
--- NOTE | 2023-06-06 10:47 | MHC.OFFVISCO ---
Intake Intake Visit Reasons: Anticoagulation Allergies clopidogrel [From PLAVIX] Allergy (Unknown, Verified 06/06/23 10:36) RASH Medication List - Last Reconciled 06/06/23 by Carolina Villafuerte, RN acetaminophen ER 650 mg PO Q12H PRN ascorbic acid (vitamin C) 500 mg PO DAILY atorvastatin 20 mg PO DAILY B-complex with vitamin C 1 tab PO DAILY calcium carb-mag ox-zinc sulf 1 tab PO DAILY coenzyme Q10 10 mg PO TID ferrous sulfate 325 mg PO DAILY furosemide 20 mg PO DAILY metoprolol tartrate 25 mg PO BID omega 4-snx-nef-fish oil 1,000 mg (120 mg-180 mg) (Fish Oil) 1 cap PO DAILY saw palmetto 500 mg PO BID vitamin E 400 units PO DAILY warfarin (Jantoven) 2.5 tabs See Protocol PO JEANETTEHELENESAMUEL@0900 Nursing Note Amb to [facility] using cane, feeling well, sts he has VNA do wound checks Medications and supplements reviewed No changes in health, diet, medications, or supplements Denies any unusual signs and symptoms of bruising, bleeding Denies any new Chest pain, SOB, or clotting INR: 2.4 now in therapeutic range Nutritional guidance given: balance greens and reds in diet Dose: continue usual dosing; 2.5mg daily F/U INR: 2 weeks Patient verbalizes understanding of instructions given with accurate read back/ teach back of dosing Anti-Coag Initial Assessment Social Hx Patient Tobacco Use Status: Never used Tobacco alcohol intake: unknown Coding Level of Care Code Est Patient Level 1 Diagnoses Current use of anticoagulant therapy Z79.01 Time Spent (min) 15 Assessment & Plan Assessment & Plan (1) Current use of anticoagulant therapy: Code(s): Z79.01 - senior living (current) use of anticoagulants Category: Medical
== END 2023-06-06 10:53 | disposition home or self-care (01) ==
LOC: HO.ACS 10:17
PROVIDERS: PCP Internal Medicine; Visit Provider Internal Medicine
DX: Z79.01 Long term (current) use of anticoagulants (principal)

== ENCOUNTER → 2023-06-06 10:17 | Outpatient (BNVA) | payer MEDICARE, SELFPAY | PROVIDERS: PCP Internal Medicine; Visit Provider Internal Medicine | DX: I48.91 Unspecified atrial fibrillation (principal); Z79.01 Long term (current) use of anticoagulants; Z51.81 Encounter for therapeutic drug level monitoring | CPT/HCPCS: 85610; 99211 ==

== ENCOUNTER 2023-06-20 10:35 | Outpatient (AMB) | payer MEDICARE, SELFPAY ==
[2023-06-20 10:48] LABS: Prothrombin Time Whole Bld POC 26.5 sec (11.1-13.5); ~PT, ~INR - Anti Coag Clinic 2.2 (0.9-1.1)
--- NOTE | 2023-06-20 10:54 | MHC.OFFVISCO ---
Intake Intake Visit Reasons: Anticoagulation Allergies clopidogrel [From PLAVIX] Allergy (Unknown, Verified 06/20/23 10:43) RASH Medication List - Last Reconciled 06/20/23 by Rosa Og RN acetaminophen ER 650 mg PO Q12H PRN ascorbic acid (vitamin C) 500 mg PO DAILY atorvastatin 20 mg PO DAILY B-complex with vitamin C 1 tab PO DAILY calcium carb-mag ox-zinc sulf 1 tab PO DAILY coenzyme Q10 10 mg PO TID ferrous sulfate 325 mg PO DAILY furosemide 20 mg PO DAILY metoprolol tartrate 25 mg PO BID omega 6-bpm-vet-fish oil 1,000 mg (120 mg-180 mg) (Fish Oil) 1 cap PO DAILY saw palmetto 500 mg PO BID vitamin E 400 units PO DAILY warfarin (Jantoven) 2.5 tabs See Protocol PO YELITZA@0900 Nursing Note Pt just had covid and flu vaccine 1 week ago - states he feels fine no symptoms INR: 2.2 in therapeutic range Medications and supplements reviewed has a small wound on heel being treated Denies any signs and symptoms of bleeding or bruising or clotting. 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
== END 2023-06-20 10:59 | disposition home or self-care (01) ==
LOC: HO.ACS 10:35
PROVIDERS: PCP Internal Medicine; Visit Provider Internal Medicine
DX: Z79.01 Long term (current) use of anticoagulants (principal)

== ENCOUNTER → 2023-06-20 10:35 | Outpatient (BNVA) | payer MEDICARE, SELFPAY | PROVIDERS: PCP Internal Medicine; Visit Provider Internal Medicine | DX: I48.91 Unspecified atrial fibrillation (principal); Z79.01 Long term (current) use of anticoagulants; Z51.81 Encounter for therapeutic drug level monitoring | CPT/HCPCS: 85610; 99211 ==

== ENCOUNTER → 2023-07-04 15:53 | Outpatient (BNVA) | payer MEDICARE, SELFPAY | PROVIDERS: PCP Internal Medicine; Visit Provider Internal Medicine ==

== ENCOUNTER 2023-07-15 10:19 | Outpatient (AMB) | payer MEDICARE, SELFPAY ==
--- NOTE | 2023-07-15 10:53 | MHC.OFFVISCO ---
Intake Intake Visit Reasons: Anticoagulation Allergies clopidogrel [From PLAVIX] Allergy (Unknown, Verified 07/15/23 10:38) RASH Medication List - Last Reconciled 07/15/23 by Rosa Og RN acetaminophen ER 650 mg PO Q12H PRN ascorbic acid (vitamin C) 500 mg PO DAILY atorvastatin 20 mg PO DAILY B-complex with vitamin C 1 tab PO DAILY calcium carb-mag ox-zinc sulf 1 tab PO DAILY coenzyme Q10 10 mg PO TID ferrous sulfate 325 mg PO DAILY furosemide 20 mg PO DAILY metoprolol tartrate 25 mg PO BID omega 3-acq-uoe-fish oil 1,000 mg (120 mg-180 mg) (Fish Oil) 1 cap PO DAILY saw palmetto 500 mg PO BID vitamin E 400 units PO DAILY warfarin (Jantoven) 2.5 tabs See Protocol PO MOTUWETHFRSA@0900 Nursing Note INR: 2.8 in therapeutic range MEDICATIONS and supplements reviewed- METOPROLOL MAY DECREASE PT IS S/P VEIN PROCEDURE 07/09/23 TO IMPROVE CIRCULATION - HE STATED THE EDEMA HAS DECREASED SIGNIFICANTLY AND THE WOUND IS HEALING HE HELD WARFARIN X5 DAYS THEN DID A 2 DAYS BOOSTER POST PROCEDURE AND AVOIDED GREENS Denies any signs and symptoms of bleeding or bruising or clotting. 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
[2023-07-15 20:37] LABS: Prothrombin Time Whole Bld POC 33.1 sec (11.1-13.5); ~PT, ~INR - Anti Coag Clinic 2.8 (0.9-1.1)
== END 2023-07-15 10:57 | disposition home or self-care (01) ==
LOC: HO.ACS 10:19
PROVIDERS: PCP Internal Medicine; Visit Provider Internal Medicine
DX: Z79.01 Long term (current) use of anticoagulants (principal)

== ENCOUNTER → 2023-07-15 10:19 | Outpatient (BNVA) | payer MEDICARE, SELFPAY | PROVIDERS: PCP Internal Medicine; Visit Provider Internal Medicine | DX: I48.91 Unspecified atrial fibrillation (principal); Z79.01 Long term (current) use of anticoagulants; Z51.81 Encounter for therapeutic drug level monitoring | CPT/HCPCS: 85610; 99211 ==

== ENCOUNTER 2023-08-06 09:19 | Outpatient (AMB) | payer MEDICARE, SELFPAY ==
[2023-08-06 09:30] LABS: Prothrombin Time Whole Bld POC 36.3 sec (11.1-13.5)
--- NOTE | 2023-08-06 09:36 | MHC.OFFVISCO ---
Intake Intake Visit Reasons: Anticoagulation Allergies clopidogrel [From PLAVIX] Allergy (Unknown, Verified 08/06/23 09:31) RASH Medication List - Last Reconciled 08/06/23 by Rosa Og RN acetaminophen ER 650 mg PO Q12H PRN ascorbic acid (vitamin C) 500 mg PO DAILY atorvastatin 20 mg PO DAILY B-complex with vitamin C 1 tab PO DAILY calcium carb-mag ox-zinc sulf 1 tab PO DAILY coenzyme Q10 10 mg PO TID ferrous sulfate 325 mg PO DAILY furosemide 20 mg PO DAILY metoprolol succinate ER 25 mg PO DAILY omega 7-svf-uao-fish oil 1,000 mg (120 mg-180 mg) (Fish Oil) 1 cap PO DAILY saw palmetto 500 mg PO BID vitamin E 400 units PO DAILY warfarin (Jantoven) 2.5 tabs See Protocol PO JEANETTEHELENESAMUEL@0900 Nursing Note INR: 3.0 in therapeutic range- FASTED TODAY FOR LIPID PANEL - CALL WAS PLACED TO MD BECAUSE ORDERS WERE NOT YET SENT BY DR VILLARREAL OFFICE Medications and supplements reviewed No changes in health, diet, medications, or supplements, Denies any signs and symptoms of bleeding or bruising or clotting. Bleeding, bruising, clotting discussed Nutritional guidance given Dose: 2.5MG DAILY F/U INR: 3 WEEKS Patient verbalizes understanding of instructions given Anti-Coag Initial Assessment Social Hx Patient Tobacco Use Status: Never used Tobacco alcohol intake: unknown Coding Level of Care Code Est Patient Level 1
== END 2023-08-06 09:38 | disposition home or self-care (01) ==
LOC: HO.ACS 09:19
PROVIDERS: PCP Internal Medicine; Visit Provider Internal Medicine
DX: Z79.01 Long term (current) use of anticoagulants (principal)

== ENCOUNTER 2023-08-06 09:19 | Outpatient (REF) | payer MEDICARE, SELFPAY ==
[2023-08-06 10:57] LABS: Cholesterol 126 mg/dL (<200); HDL Cholesterol 38 mg/dL (>40); LDL Cholesterol Calculated 70 mg/dL (<100); Triglycerides 93 mg/dL (<150)
== END 2023-08-06 09:20 | disposition home or self-care (01) ==
LOC: HO.LAB 09:19
PROVIDERS: Nurse Practitioner Family; PCP Internal Medicine; Visit Provider Internal Medicine
DX: I48.91 Unspecified atrial fibrillation (principal); I25.10 Atherosclerotic heart disease of native coronary artery without angina pectoris; Z51.81 Encounter for therapeutic drug level monitoring; Z79.01 Long term (current) use of anticoagulants
CPT/HCPCS: 36415; 80061; 85610; 99211

== ENCOUNTER 2023-08-27 09:01 | Outpatient (AMB) | payer MEDICARE, SELFPAY ==
[2023-08-27 09:11] LABS: Prothrombin Time Whole Bld POC 33.2 sec (11.1-13.5); ~PT, ~INR - Anti Coag Clinic 2.8 (0.9-1.1)
--- NOTE | 2023-08-27 09:17 | MHC.OFFVISCO ---
Intake Intake Visit Reasons: Anticoagulation Allergies clopidogrel [From PLAVIX] Allergy (Unknown, Verified 08/27/23 09:03) RASH Medication List - Last Reconciled 08/27/23 by Rosa Og RN acetaminophen ER 650 mg PO Q12H PRN ascorbic acid (vitamin C) 500 mg PO DAILY atorvastatin 20 mg PO DAILY B-complex with vitamin C 1 tab PO DAILY calcium carb-mag ox-zinc sulf 1 tab PO DAILY cephalexin 500 mg PO BID coenzyme Q10 10 mg PO TID ferrous sulfate 325 mg PO DAILY furosemide 20 mg PO DAILY metoprolol succinate ER 25 mg PO DAILY omega 2-trb-emh-fish oil 1,000 mg (120 mg-180 mg) (Fish Oil) 1 cap PO DAILY saw palmetto 500 mg PO BID silver sulfadiazine 1% appl topical vitamin E 400 units PO DAILY warfarin (Jantoven) 2.5 tabs See Protocol PO YELITZA@0900 Nursing Note INR: 2.8 in therapeutic range Medications and supplements reviewed on antbx cephalexin 500mg x 10 days will complete 09/03/23 - Denies any signs and symptoms of bleeding or bruising or clotting. Bleeding, bruising, clotting discussed Nutritional guidance given Dose: decrease dose x 1 day - hold x 1 day/ 2.5mg x 6 days- x 1 week and increase greens next week while finishing antb F/U INR:09/10/22 Patient verbalizes understanding of instructions given Anti-Coag Initial Assessment Social Hx Patient Tobacco Use Status: Never used Tobacco alcohol intake: unknown Coding Level of Care Code Est Patient Level 1 Diagnoses Current use of anticoagulant therapy Z79.01 Results AMB INR Fingerstick AMB INR Fingerstick 2.8 Last Edit by Rosa Og RN on 08/27/23 09:13 Assessment & Plan Assessment & Plan (1) Current use of anticoagulant therapy: Code(s): Z79.01 - detention (current) use of anticoagulants Category: Medical
== END 2023-08-27 09:20 | disposition home or self-care (01) ==
LOC: HO.ACS 09:01
PROVIDERS: PCP Internal Medicine; Visit Provider Internal Medicine
DX: Z79.01 Long term (current) use of anticoagulants (principal)

== ENCOUNTER → 2023-08-27 09:01 | Outpatient (BNVA) | payer MEDICARE, SELFPAY | PROVIDERS: PCP Internal Medicine; Visit Provider Internal Medicine | DX: I48.91 Unspecified atrial fibrillation (principal); Z79.01 Long term (current) use of anticoagulants; Z51.81 Encounter for therapeutic drug level monitoring | CPT/HCPCS: 85610; 99211 ==

== ENCOUNTER 2023-09-10 09:07 | Outpatient (AMB) | payer MEDICARE, SELFPAY ==
--- NOTE | 2023-09-10 09:20 | MHC.OFFVISCO ---
Intake Intake Visit Reasons: Anticoagulation Allergies clopidogrel [From PLAVIX] Allergy (Unknown, Verified 09/10/23 09:13) RASH Medication List - Last Reconciled 09/10/23 by Meche Kitchen RN acetaminophen ER 650 mg PO Q12H PRN ascorbic acid (vitamin C) 500 mg PO DAILY atorvastatin 20 mg PO DAILY B-complex with vitamin C 1 tab PO DAILY calcium carb-mag ox-zinc sulf 1 tab PO DAILY coenzyme Q10 10 mg PO TID ferrous sulfate 325 mg PO DAILY furosemide 20 mg PO DAILY metoprolol succinate ER 25 mg PO DAILY omega 0-rpa-etc-fish oil 1,000 mg (120 mg-180 mg) (Fish Oil) 1 cap PO DAILY saw palmetto 500 mg PO BID silver sulfadiazine 1% appl topical vitamin E 400 units PO DAILY warfarin (Jantoven) 2.5 tabs See Protocol PO YELITZA@0900 Nursing Note INR: 2.6- in therapeutic range of 2-3 Medications and supplements reviewed- no changes pt finished antibiotics cephalexin approx a week ago No changes in health, diet, medications, or supplements, Denies any signs and symptoms of bleeding or bruising or clotting. Bleeding, bruising, clotting discussed Nutritional guidance given Dose: 2.5mg x 7 F/U INR: pt req 3 weeks f/u Patient verbalizes understanding of instructions given pt cont with small wound le- has vna Anti-Coag Initial Assessment Social Hx Patient Tobacco Use Status: Never used Tobacco alcohol intake: unknown Coding Level of Care Code Est Patient Level 1 Diagnoses Current use of anticoagulant therapy Z79.01 Assessment & Plan Assessment & Plan (1) Current use of anticoagulant therapy: Code(s): Z79.01 - snf (current) use of anticoagulants Category: Medical
[2023-09-10 09:21] LABS: ~PT, ~INR - Anti Coag Clinic 2.6 (0.9-1.1)
== END 2023-09-10 09:25 | disposition home or self-care (01) ==
LOC: HO.ACS 09:07
PROVIDERS: PCP Internal Medicine; Visit Provider Internal Medicine
DX: Z79.01 Long term (current) use of anticoagulants (principal)

== ENCOUNTER → 2023-09-10 09:07 | Outpatient (BNVA) | payer MEDICARE, SELFPAY | PROVIDERS: PCP Internal Medicine; Visit Provider Internal Medicine | DX: I48.91 Unspecified atrial fibrillation (principal); Z51.81 Encounter for therapeutic drug level monitoring; Z79.01 Long term (current) use of anticoagulants | CPT/HCPCS: 85610; 99211 ==

== ENCOUNTER 2023-10-01 09:37 | Outpatient (AMB) | payer MEDICARE, SELFPAY ==
--- NOTE | 2023-10-01 10:00 | MHC.OFFVISCO ---
Intake Intake Visit Reasons: Anticoagulation Allergies clopidogrel [From PLAVIX] Allergy (Unknown, Verified 10/01/23 09:57) RASH Medication List - Last Reconciled 10/01/23 by Mcehe Kitchen RN acetaminophen ER 650 mg PO Q12H PRN ascorbic acid (vitamin C) 500 mg PO DAILY atorvastatin 20 mg PO DAILY B-complex with vitamin C 1 tab PO DAILY calcium carb-mag ox-zinc sulf 1 tab PO DAILY coenzyme Q10 10 mg PO TID ferrous sulfate 325 mg PO DAILY furosemide 20 mg PO DAILY metoprolol succinate ER 25 mg PO DAILY omega 9-wgb-gcc-fish oil 1,000 mg (120 mg-180 mg) (Fish Oil) 1 cap PO DAILY saw palmetto 500 mg PO BID silver sulfadiazine 1% appl topical vitamin E 400 units PO DAILY warfarin (Jantoven) 2.5 tabs See Protocol PO YELITZA@0900 Nursing Note INR: 3.0- in therapeutic range of 2-3 Medications and supplements reviewed- no changes No changes in health, diet, medications, or supplements, Denies any signs and symptoms of bleeding or bruising or clotting. Bleeding, bruising, clotting discussed Nutritional guidance given - eat dark greens to lower Dose: 2.5mg x 7 F/U INR: 3 weeks Patient verbalizes understanding of instructions given pt cont with vna caretenders, aware vna can do poc inr vna monitoring wound Anti-Coag Initial Assessment Social Hx Patient Tobacco Use Status: Never used Tobacco alcohol intake: unknown Coding Level of Care Code Est Patient Level 1 Diagnoses Current use of anticoagulant therapy Z79.01 Results AMB INR Fingerstick AMB INR Fingerstick 3.0 Last Edit by Meche Kitchen RN on 10/01/23 10:01 Assessment & Plan Assessment & Plan (1) Current use of anticoagulant therapy: Code(s): Z79.01 - retirement (current) use of anticoagulants Category: Medical
[2023-10-01 10:02] LABS: Prothrombin Time Whole Bld POC 35.6 sec (11.1-13.5)
== END 2023-10-01 10:07 | disposition home or self-care (01) ==
LOC: HO.ACS 09:37
PROVIDERS: PCP Internal Medicine; Visit Provider Internal Medicine
DX: Z79.01 Long term (current) use of anticoagulants (principal)

== ENCOUNTER → 2023-10-01 09:37 | Outpatient (BNVA) | payer MEDICARE, SELFPAY | PROVIDERS: PCP Internal Medicine; Visit Provider Internal Medicine | DX: I48.91 Unspecified atrial fibrillation (principal); Z79.01 Long term (current) use of anticoagulants; Z51.81 Encounter for therapeutic drug level monitoring | CPT/HCPCS: 85610; 99211 ==

== ENCOUNTER 2023-10-25 10:50 | Outpatient (AMB) | payer MEDICARE, SELFPAY ==
--- NOTE | 2023-10-25 11:09 | MHC.OFFVISCO ---
Intake Intake Visit Reasons: Anticoagulation Allergies clopidogrel [From PLAVIX] Allergy (Unknown, Verified 10/25/23 11:04) RASH Medication List - Last Reconciled 10/25/23 by Meche Kitchen RN acetaminophen ER 650 mg PO Q12H PRN ascorbic acid (vitamin C) 500 mg PO DAILY atorvastatin 20 mg PO DAILY B-complex with vitamin C 1 tab PO DAILY calcium carb-mag ox-zinc sulf 1 tab PO DAILY coenzyme Q10 10 mg PO TID ferrous sulfate 325 mg PO DAILY furosemide 20 mg PO DAILY metoprolol succinate ER 25 mg PO DAILY omega 5-fpo-qqt-fish oil 1,000 mg (120 mg-180 mg) (Fish Oil) 1 cap PO DAILY saw palmetto 500 mg PO BID silver sulfadiazine 1% appl topical vitamin E 400 units PO DAILY warfarin (Jantoven) 2.5 tabs See Protocol PO YELITZA@0900 Nursing Note INR 3.5-?? out of therapeutic range of 2-3 Medications and supplements reviewed Patient status: no c.o. states wounds mostly healed, has caretenders vna Medications or supplements: no changes Diet: appetite good- states has not had many greens Denies any signs and symptoms of bleeding or clotting or unusual bruising Bleeding, bruising, clotting discussed Nutritional guidance given: eat greens to lower inr Dose: already took warfarin today, hold dose tomm then cont reg 2.5mg x 7 F/U INR Date : 2 weeks? Patient verbalizing understanding of instructions given. 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
[2023-10-25 11:18] LABS: Prothrombin Time Whole Bld POC 42.1 sec (11.1-13.5); ~PT, ~INR - Anti Coag Clinic 3.5 (0.9-1.1)
== END 2023-10-25 11:20 | disposition home or self-care (01) ==
LOC: HO.ACS 10:50
PROVIDERS: PCP Internal Medicine; Visit Provider Internal Medicine
DX: Z79.01 Long term (current) use of anticoagulants (principal)

== ENCOUNTER → 2023-10-25 10:50 | Outpatient (BNVA) | payer MEDICARE, SELFPAY | PROVIDERS: PCP Internal Medicine; Visit Provider Internal Medicine | DX: I48.91 Unspecified atrial fibrillation (principal); Z79.01 Long term (current) use of anticoagulants; Z51.81 Encounter for therapeutic drug level monitoring | CPT/HCPCS: 85610; 99211 ==

== ENCOUNTER → 2023-11-11 08:26 | Outpatient (BNVA) | payer MEDICARE, SELFPAY | PROVIDERS: PCP Internal Medicine; Visit Provider Internal Medicine ==

== ENCOUNTER 2023-11-18 10:51 | Outpatient (AMB) | payer MEDICARE, SELFPAY ==
[2023-11-18 11:05] LABS: Prothrombin Time Whole Bld POC 32.2 sec (11.1-13.5); ~PT, ~INR - Anti Coag Clinic 2.7 (0.9-1.1)
--- NOTE | 2023-11-18 11:12 | MHC.OFFVISCO ---
Intake Intake Visit Reasons: Anticoagulation Allergies clopidogrel [From PLAVIX] Allergy (Unknown, Verified 11/18/23 10:57) RASH Medication List - Last Reconciled 11/18/23 by Rosa Og RN acetaminophen ER 650 mg PO Q12H PRN ascorbic acid (vitamin C) 500 mg PO DAILY atorvastatin 20 mg PO DAILY B-complex with vitamin C 1 tab PO DAILY calcium carb-mag ox-zinc sulf 1 tab PO DAILY coenzyme Q10 10 mg PO TID ferrous sulfate 325 mg PO DAILY furosemide 20 mg PO DAILY metoprolol succinate ER 25 mg PO DAILY omega 3-ocl-cag-fish oil 1,000 mg (120 mg-180 mg) (Fish Oil) 1 cap PO DAILY saw palmetto 500 mg PO BID silver sulfadiazine 1% appl topical vitamin E 400 units PO DAILY warfarin (Septoven) 2.5 tabs See Protocol PO YELITZA@0900 Nursing Note INR: 2.7 in therapeutic range Medications and supplements reviewed- completed antbx yesterday, dose was decreased last week with pending delayed onset of raising the INR No changes in diet, medications, or supplements, leg ulcers healing well- should be d/c visiting nurse wound care soon. Denies any signs and symptoms of bleeding or bruising or clotting. Bleeding, bruising, clotting discussed Nutritional guidance given - keep up weekly greens this week due to delayed onset of antbx. Dose: 2.5MG DAILY F/U INR: 3 WEEKS Patient verbalizes understanding of instructions given Anti-Coag Initial Assessment Social Hx Patient Tobacco Use Status: Never used Tobacco alcohol intake: unknown Coding Level of Care Code Est Patient Level 1 Diagnoses Current use of anticoagulant therapy Z79.01 Assessment & Plan Assessment & Plan (1) Current use of anticoagulant therapy: Code(s): Z79.01 - prison (current) use of anticoagulants Category: Medical
== END 2023-11-18 11:21 | disposition home or self-care (01) ==
LOC: HO.ACS 10:51
PROVIDERS: PCP Internal Medicine; Visit Provider Internal Medicine
DX: Z79.01 Long term (current) use of anticoagulants (principal)

== ENCOUNTER → 2023-11-18 10:51 | Outpatient (BNVA) | payer MEDICARE, SELFPAY | PROVIDERS: PCP Internal Medicine; Visit Provider Internal Medicine | DX: I48.91 Unspecified atrial fibrillation (principal); Z79.01 Long term (current) use of anticoagulants; Z51.81 Encounter for therapeutic drug level monitoring | CPT/HCPCS: 85610; 99211 ==

== ENCOUNTER 2023-12-09 10:30 | Outpatient (AMB) | payer MEDICARE, SELFPAY ==
[2023-12-09 10:41] LABS: Prothrombin Time Whole Bld POC 38.9 sec (11.1-13.5); ~PT, ~INR - Anti Coag Clinic 3.2 (0.9-1.1)
--- NOTE | 2023-12-09 10:57 | MHC.OFFVISCO ---
Intake Intake Visit Reasons: Anticoagulation Allergies clopidogrel [From PLAVIX] Allergy (Unknown, Verified 12/09/23 10:37) RASH Medication List - Last Reconciled 12/09/23 by Rosa Og RN acetaminophen ER 650 mg PO Q12H PRN ascorbic acid (vitamin C) 500 mg PO DAILY atorvastatin 20 mg PO DAILY B-complex with vitamin C 1 tab PO DAILY calcium carb-mag ox-zinc sulf 1 tab PO DAILY coenzyme Q10 10 mg PO TID ferrous sulfate 325 mg PO DAILY furosemide 20 mg PO DAILY metoprolol succinate ER 25 mg PO DAILY omega 2-jnb-iyu-fish oil 1,000 mg (120 mg-180 mg) (Fish Oil) 1 cap PO DAILY saw palmetto 500 mg PO BID silver sulfadiazine 1% appl topical vitamin E 400 units PO DAILY warfarin (Jantoven) 2.5 tabs See Protocol PO YELITZA@0900 Nursing Note INR: 3.2 JUST OUT OF therapeutic range Medications and supplements reviewed TO HAVE CYST REMOVED FROM TOP OF HEAD 12/20/23, DONE WITH LOCAL, TO HOLD WARFARIN X 5 DAYS, 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 Bleeding, bruising, clotting discussed Nutritional guidance given - AVOID GREENS POST PROCEDURE AND EAT FOODS TO HELP RAISE THE INR AFTER THE PROCEDURE Dose: 2.5MG DAILY FOR NOW AND EAT GREENS TODAY THEN HOLD WARFARIN 5 DAYS PRIOR PROCEDURE THEN TO RESUME 5MG X 2 DAYS/ 2.5MG DAILY F/U INR: 12/26/23 Patient verbalizes understanding of instructions given WILL CALL PCP TO INQUIRE IF [facility]OVEN[facility] BRIDGE NEEDED 1151 T/C TO PCP OFFICE TO REPORT PT STATUS SPOKE WITH ALBA TO CONVEY MSG TO PCP Anti-Coag Initial Assessment Social Hx Patient Tobacco Use Status: Never used Tobacco alcohol intake: unknown Questionnaires HAS-BLED Does the patient had uncontrolled Hypertension?: No Does the patient have renal disease?: No Does the patient have liver disease?: No Does the patient have a history of stroke?: Yes Has the patient had major bleeding or predisposition to bleeding?: Yes Does the patient have labile INRs?: No Is the patient over 65 years of age?: Yes Is the patient on medications that gives them a predisposition to bleeding?: Yes Does the patient use alcohol?: Yes (MARIJUANA) HAS-BLED Score: 5 CHADSVASC Age: 75 or over Gender: Male Does the patient have a history of CHF?: Yes Does the patient have a history of Hypertension?: Yes Does the patient have a history of Stroke/TIA/Thromboembolism?: Yes Does the patient have a history of Vascular Disease (prior SD, PAD or aortic plaque)?: Yes Does the patient have a history of Diabetes?: No CHADS VACS Score: 7 Ann Marie Prediction Score Rsk VTE Active Cancer: No Previous VTE, excluding superficial vein thrombosis: Yes Reduced mobility: No Already known Thrombophilic Condition: No With-in last month Trauma and/or Surgery: Yes Elderly 70 year or older: Yes Heart and/or Respiratory Failure: No Acute Myocardial infarction and/or Ischemic Stroke: Yes Acute Infection and/or Rheumatologic Disorder: No Obesity (BMI 30 or greater): No Ongoing Hormonal Treatment: No Score: 7 Ann Marie Score less than 4; Low Risk of VTE Ann Marie Score 4 or greater; High Risk of VTE Coding Level of Care Code Est Patient Level 1 Diagnoses Current use of anticoagulant therapy Z79.01 Assessment & Plan Assessment & Plan (1) Current use of anticoagulant therapy: Code(s): Z79.01 - assisted (current) use of anticoagulants Category: Medical
== END 2023-12-09 11:01 | disposition home or self-care (01) ==
LOC: HO.ACS 10:30
PROVIDERS: PCP Internal Medicine; Visit Provider Internal Medicine
DX: Z79.01 Long term (current) use of anticoagulants (principal)

== ENCOUNTER → 2023-12-09 10:30 | Outpatient (BNVA) | payer MEDICARE, SELFPAY | PROVIDERS: PCP Internal Medicine; Visit Provider Internal Medicine | DX: I48.91 Unspecified atrial fibrillation (principal); Z51.81 Encounter for therapeutic drug level monitoring; Z79.01 Long term (current) use of anticoagulants | CPT/HCPCS: 85610; 99211 ==

== ENCOUNTER 2023-12-30 09:48 | Outpatient (AMB) | payer MEDICARE, SELFPAY ==
[2023-12-30 10:02] LABS: Prothrombin Time Whole Bld POC 29.3 sec (11.1-13.5); ~PT, ~INR - Anti Coag Clinic 2.4 (0.9-1.1)
--- NOTE | 2023-12-30 10:05 | MHC.OFFVISCO ---
Intake Intake Visit Reasons: Anticoagulation Allergies clopidogrel [From PLAVIX] Allergy (Unknown, Verified 12/30/23 09:56) RASH Medication List - Last Reconciled 12/30/23 by Carolina Villafuerte RN acetaminophen ER 650 mg PO Q12H PRN ascorbic acid (vitamin C) 500 mg PO DAILY atorvastatin 20 mg PO DAILY B-complex with vitamin C 1 tab PO DAILY calcium carb-mag ox-zinc sulf 1 tab PO DAILY coenzyme Q10 10 mg PO TID ferrous sulfate 325 mg PO DAILY furosemide 20 mg PO DAILY metoprolol succinate ER 25 mg PO DAILY omega 4-trf-cuy-fish oil 1,000 mg (120 mg-180 mg) (Fish Oil) 1 cap PO DAILY saw palmetto 500 mg PO BID silver sulfadiazine 1% appl topical vitamin E 400 units PO DAILY warfarin (Jantoven) 2.5 tabs See Protocol PO YELITZA@0900 Nursing Note Amb to [facility] using cane, feeling fine- sts he had cyst removed from top of head about a week ago. warfarin was on hold resumed warfarin on 12/19 with 2 day boost (5mg x 2 days vs 2.5mg) then resumed usual dosing Medications and supplements reviewed No other changes in health, diet, medications, or supplements, Denies any signs and symptoms of bleeding, bruising, or clotting. 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
== END 2023-12-30 10:13 | disposition home or self-care (01) ==
LOC: HO.ACS 09:48
PROVIDERS: PCP Internal Medicine; Visit Provider Internal Medicine
DX: Z79.01 Long term (current) use of anticoagulants (principal)

== ENCOUNTER → 2023-12-30 09:48 | Outpatient (BNVA) | payer MEDICARE, SELFPAY | PROVIDERS: PCP Internal Medicine; Visit Provider Internal Medicine | DX: I48.19 Other persistent atrial fibrillation (principal); Z51.81 Encounter for therapeutic drug level monitoring; Z79.01 Long term (current) use of anticoagulants | CPT/HCPCS: 85610; 99211 ==

== ENCOUNTER 2024-01-20 10:10 | Outpatient (AMB) | payer MEDICARE, SELFPAY ==
[2024-01-20 10:17] LABS: ~PT, ~INR - Anti Coag Clinic 2.2 (0.9-1.1)
--- NOTE | 2024-01-20 10:25 | MHC.OFFVISCO ---
Intake Intake Visit Reasons: Anticoagulation Allergies clopidogrel [From PLAVIX] Allergy (Unknown, Verified 01/20/24 10:10) RASH Medication List - Last Reconciled 01/20/24 by Rosa Og RN acetaminophen ER 650 mg PO Q12H PRN ascorbic acid (vitamin C) 500 mg PO DAILY atorvastatin 20 mg PO DAILY B-complex with vitamin C 1 tab PO DAILY calcium carb-mag ox-zinc sulf 1 tab PO DAILY coenzyme Q10 10 mg PO TID ferrous sulfate 325 mg PO DAILY furosemide 20 mg PO DAILY metoprolol succinate ER 25 mg PO DAILY omega 6-sho-wxu-fish oil 1,000 mg (120 mg-180 mg) (Fish Oil) 1 cap PO DAILY saw palmetto 500 mg PO BID silver sulfadiazine 1% appl topical vitamin E 400 units PO DAILY warfarin (Jantoven) 2.5 tabs See Protocol PO YELITZA@0900 Nursing Note INR: 2.2 in therapeutic range Medications and supplements reviewed No changes in health, diet, medications, or supplements, Denies any signs and symptoms of bleeding or bruising or clotting. 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
== END 2024-01-20 10:27 | disposition home or self-care (01) ==
LOC: HO.ACS 10:10
PROVIDERS: PCP Internal Medicine; Visit Provider Internal Medicine
DX: Z79.01 Long term (current) use of anticoagulants (principal)

== ENCOUNTER → 2024-01-20 10:10 | Outpatient (BNVA) | payer MEDICARE, SELFPAY | PROVIDERS: PCP Internal Medicine; Visit Provider Internal Medicine | DX: I48.91 Unspecified atrial fibrillation (principal); Z79.01 Long term (current) use of anticoagulants; Z51.81 Encounter for therapeutic drug level monitoring | CPT/HCPCS: 85610; 99211 ==

== ENCOUNTER 2024-02-18 08:52 | Outpatient (AMB) | payer MEDICARE, SELFPAY ==
[2024-02-18 09:07] LABS: Prothrombin Time Whole Bld POC 38.8 sec (11.1-13.5); ~PT, ~INR - Anti Coag Clinic 3.2 (0.9-1.1)
--- NOTE | 2024-02-18 09:10 | MHC.OFFVISCO ---
Intake Intake Visit Reasons: Anticoagulation Allergies clopidogrel [From PLAVIX] Allergy (Unknown, Verified 02/18/24 09:01) RASH Medication List - Last Reconciled 02/18/24 by Carolina Villafuerte, RN acetaminophen ER 650 mg PO Q12H PRN ascorbic acid (vitamin C) 500 mg PO DAILY atorvastatin 20 mg PO DAILY B-complex with vitamin C 1 tab PO DAILY calcium carb-mag ox-zinc sulf 1 tab PO DAILY coenzyme Q10 10 mg PO TID ferrous sulfate 325 mg PO DAILY furosemide 20 mg PO DAILY metoprolol succinate ER 25 mg PO DAILY omega 8-rvb-qje-fish oil 1,000 mg (120 mg-180 mg) (Fish Oil) 1 cap PO DAILY saw palmetto 500 mg PO BID silver sulfadiazine 1% appl topical vitamin E 400 units PO DAILY warfarin (Jantoven) 2.5 tabs See Protocol PO YELITZA@0900 Nursing Note Amb to [facility] using cane, feeling well, sts his foot wounds are healed and is looking forward to going back to [facility] Medications and supplements reviewed No changes in health, diet, medications, or supplements, Denies any signs and symptoms of bleeding, bruising or clotting. INR is 3.2 above therapeutic range Dose- continue usual 2.5mg daily Nutritional guidance given increase greens today and tomorrow, sts he has green mixed salads daily, will add extra raw spinach leaves F/U INR: 4 weeks Patient verbalizes understanding of instructions given Anti-Coag Initial Assessment Social Hx Patient Tobacco Use Status: Never used Tobacco alcohol intake: unknown Coding Level of Care Code Est Patient Level 1 Diagnoses Current use of anticoagulant therapy Z79.01 Time Spent (min) 15 Assessment & Plan Assessment & Plan (1) Current use of anticoagulant therapy: Code(s): Z79.01 - group home (current) use of anticoagulants Category: Medical
== END 2024-02-18 09:17 | disposition home or self-care (01) ==
LOC: HO.ACS 08:52
PROVIDERS: PCP Internal Medicine; Visit Provider Internal Medicine
DX: Z79.01 Long term (current) use of anticoagulants (principal)

== ENCOUNTER → 2024-02-18 08:52 | Outpatient (BNVA) | payer MEDICARE, SELFPAY | PROVIDERS: PCP Internal Medicine; Visit Provider Internal Medicine | DX: I48.91 Unspecified atrial fibrillation (principal); Z79.01 Long term (current) use of anticoagulants; Z51.81 Encounter for therapeutic drug level monitoring | CPT/HCPCS: 85610; 99211 ==

== ENCOUNTER 2024-03-17 09:46 | Outpatient (AMB) | payer MEDICARE, SELFPAY ==
--- NOTE | 2024-03-17 10:07 | MHC.OFFVISCO ---
Intake Intake Visit Reasons: Anticoagulation Allergies clopidogrel [From PLAVIX] Allergy (Unknown, Verified 03/17/24 09:56) RASH Medication List - Last Reconciled 03/17/24 by Rosa Og RN acetaminophen ER 650 mg PO Q12H PRN ascorbic acid (vitamin C) 500 mg PO DAILY atorvastatin 20 mg PO DAILY B-complex with vitamin C 1 tab PO DAILY calcium carb-mag ox-zinc sulf 1 tab PO DAILY coenzyme Q10 10 mg PO TID ferrous sulfate 325 mg PO DAILY furosemide 20 mg PO DAILY metoprolol succinate ER 25 mg PO DAILY omega 6-hzk-tev-fish oil 1,000 mg (120 mg-180 mg) (Fish Oil) 1 cap PO DAILY saw palmetto 500 mg PO BID silver sulfadiazine 1% appl topical vitamin E 400 units PO DAILY warfarin (Jantoven) 2.5 tabs See Protocol PO YELITZA@0900 Nursing Note INR: 2.4 in therapeutic range Medications and supplements reviewed No changes in health, diet, medications, or supplements, Denies any signs and symptoms of bleeding or bruising or clotting. Bleeding, bruising, clotting discussed Nutritional guidance given - eat a mix of fruits and vegetables Dose: 2.5mg daily F/U INR: 4 weeks Patient verbalizes understanding of instructions given Anti-Coag Initial Assessment Social Hx Patient Tobacco Use Status: Never used Tobacco alcohol intake: unknown Coding Level of Care Code Est Patient Level 1 Diagnoses Current use of anticoagulant therapy Z79.01 Results AMB INR Fingerstick AMB INR Fingerstick 2.4 Last Edit by Rosa Og RN on 03/17/24 10:05 MANUAL ENTRY FAILED INTERFACING ONGOING Assessment & Plan Assessment & Plan (1) Current use of anticoagulant therapy: 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
[2024-03-17 11:11] LABS: Prothrombin Time Whole Bld POC 28.4 sec (11.1-13.5); ~PT, ~INR - Anti Coag Clinic 2.4 (0.9-1.1)
== END 2024-03-17 10:09 | disposition home or self-care (01) ==
LOC: HO.ACS 09:46
PROVIDERS: PCP Internal Medicine; Visit Provider Internal Medicine
DX: Z79.01 Long term (current) use of anticoagulants (principal)

== ENCOUNTER → 2024-03-17 09:46 | Outpatient (BNVA) | payer MEDICARE, SELFPAY | PROVIDERS: PCP Internal Medicine; Visit Provider Internal Medicine | DX: I48.91 Unspecified atrial fibrillation (principal); Z79.01 Long term (current) use of anticoagulants; Z51.81 Encounter for therapeutic drug level monitoring | CPT/HCPCS: 85610; 99211 ==

== ENCOUNTER 2024-04-14 09:34 | Outpatient (AMB) | payer MEDICARE, SELFPAY ==
--- NOTE | 2024-04-14 09:55 | MHC.OFFVISCO ---
Intake Intake Visit Reasons: Anticoagulation Allergies clopidogrel [From PLAVIX] Allergy (Unknown, Verified 04/14/24 09:43) RASH Medication List - Last Reconciled 04/14/24 by Rosa Og RN acetaminophen ER 650 mg PO Q12H PRN ascorbic acid (vitamin C) 500 mg PO DAILY atorvastatin 20 mg PO DAILY B-complex with vitamin C 1 tab PO DAILY calcium carb-mag ox-zinc sulf 1 tab PO DAILY coenzyme Q10 10 mg PO TID ferrous sulfate 325 mg PO DAILY furosemide 20 mg PO DAILY metoprolol succinate ER 25 mg PO DAILY omega 5-zmj-sdx-fish oil 1,000 mg (120 mg-180 mg) (Fish Oil) 1 cap PO DAILY saw palmetto 500 mg PO BID silver sulfadiazine 1% appl topical vitamin E 400 units PO DAILY warfarin (Jantoven) 2.5 tabs See Protocol PO JEANETTEUWETHFR@0900 Nursing Note INR: 2.6 in therapeutic range Medications and supplements reviewed No changes in health, diet, medications, or supplements, Denies any signs and symptoms of bleeding or bruising or clotting. Bleeding, bruising, clotting discussed Nutritional guidance given Dose: KEEP SAME DOSE 2.5MG DAILY F/U INR: 1 MONTH Patient verbalizes understanding of instructions given Anti-Coag Initial Assessment Social Hx Patient Tobacco Use Status: Never used Tobacco alcohol intake: unknown Coding Level of Care Code Est Patient Level 1 Diagnoses Current use of anticoagulant therapy Z79.01 Results AMB INR Fingerstick AMB INR Fingerstick 2.6 Last Edit by Rosa Og RN on 04/14/24 09:53 MANUAL ENTRY Assessment & Plan Assessment & Plan (1) Current use of anticoagulant therapy: Code(s): Z79.01 - care home (current) use of anticoagulants Category: Medical
[2024-04-14 10:38] LABS: Prothrombin Time Whole Bld POC 30.6 sec (11.1-13.5); ~PT, ~INR - Anti Coag Clinic 2.6 (0.9-1.1)
== END 2024-04-14 09:58 | disposition home or self-care (01) ==
LOC: HO.ACS 09:34
PROVIDERS: PCP Internal Medicine; Visit Provider Internal Medicine
DX: Z79.01 Long term (current) use of anticoagulants (principal)

== ENCOUNTER → 2024-04-14 09:34 | Outpatient (BNVA) | payer MEDICARE, SELFPAY | PROVIDERS: PCP Internal Medicine; Visit Provider Internal Medicine | DX: I48.91 Unspecified atrial fibrillation (principal); Z79.01 Long term (current) use of anticoagulants; Z51.81 Encounter for therapeutic drug level monitoring | CPT/HCPCS: 85610; 99211 ==

== ENCOUNTER 2024-05-12 09:55 | Outpatient (AMB) | payer MEDICARE, SELFPAY ==
--- NOTE | 2024-05-12 10:11 | MHC.OFFVISCO ---
Intake Intake Visit Reasons: Anticoagulation Allergies clopidogrel [From PLAVIX] Allergy (Unknown, Verified 05/12/24 10:07) RASH Medication List - Last Reconciled 05/12/24 by Meche Kitchen RN acetaminophen ER 650 mg PO Q12H PRN ascorbic acid (vitamin C) 500 mg PO DAILY atorvastatin 20 mg PO DAILY B-complex with vitamin C 1 tab PO DAILY calcium carb-mag ox-zinc sulf 1 tab PO DAILY coenzyme Q10 10 mg PO TID ferrous sulfate 325 mg PO DAILY furosemide 20 mg PO DAILY metoprolol succinate ER 25 mg PO DAILY omega 0-tcy-mss-fish oil 1,000 mg (120 mg-180 mg) (Fish Oil) 1 cap PO DAILY saw palmetto 500 mg PO BID silver sulfadiazine 1% appl topical vitamin E 400 units PO DAILY warfarin (Jantoven) 2.5 tabs See Protocol PO JEANETTEUWETHGRETA@0900 Nursing Note INR 3.7-? out of therapeutic range of 2-3 Medications and supplements reviewed Patient status: c.o congestion Medications or supplements: pt states taking antihistamines and vics sinex nasal spray which can raise inr Diet: same Denies any signs and symptoms of bleeding or clotting or unusual bruising Bleeding, bruising, clotting discussed Nutritional guidance given: eat greens to lower inr Dose: pt states already took warfarin today, hold dose tomm then cont reg dosing F/U INR Date : 2 weeks?? Patient verbalizing understanding of instructions given. 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
[2024-05-12 10:13] LABS: Prothrombin Time Whole Bld POC 44.3 sec (11.1-13.5); ~PT, ~INR - Anti Coag Clinic 3.7 (0.9-1.1)
== END 2024-05-12 10:20 | disposition home or self-care (01) ==
LOC: HO.ACS 09:55
PROVIDERS: PCP Internal Medicine; Visit Provider Internal Medicine
DX: Z79.01 Long term (current) use of anticoagulants (principal)

== ENCOUNTER → 2024-05-12 09:55 | Outpatient (BNVA) | payer MEDICARE, SELFPAY | PROVIDERS: PCP Internal Medicine; Visit Provider Internal Medicine | DX: I48.91 Unspecified atrial fibrillation (principal); Z79.01 Long term (current) use of anticoagulants; Z51.81 Encounter for therapeutic drug level monitoring | CPT/HCPCS: 85610; 99211 ==

== ENCOUNTER 2024-05-26 09:43 | Outpatient (AMB) | payer MEDICARE, SELFPAY ==
[2024-05-26 09:56] LABS: Prothrombin Time Whole Bld POC 42.1 sec (11.1-13.5); ~PT, ~INR - Anti Coag Clinic 3.5 (0.9-1.1)
--- NOTE | 2024-05-26 10:04 | MHC.OFFVISCO ---
Intake Intake Visit Reasons: Anticoagulation Allergies clopidogrel [From PLAVIX] Allergy (Unknown, Verified 05/26/24 09:50) RASH Medication List - Last Reconciled 05/26/24 by Carolina Diaz RN acetaminophen ER 650 mg PO Q12H PRN ascorbic acid (vitamin C) 500 mg PO DAILY atorvastatin 20 mg PO DAILY B-complex with vitamin C 1 tab PO DAILY calcium carb-mag ox-zinc sulf 1 tab PO DAILY coenzyme Q10 10 mg PO TID ferrous sulfate 325 mg PO DAILY furosemide 20 mg PO DAILY metoprolol succinate ER 25 mg PO DAILY omega 2-rwi-vow-fish oil 1,000 mg (120 mg-180 mg) (Fish Oil) 1 cap PO DAILY saw palmetto 500 mg PO BID silver sulfadiazine 1% appl topical vitamin E 400 units PO DAILY warfarin (Jantoven) 2.5 tabs See Protocol PO AMADAETHGRETA@0900 Nursing Note INR 3.5?out of therapeutic range 2-3 Medications and supplements reviewed Patient status: feels well Medications or supplements: no changes Diet: no changes Denies any signs and symptoms of bleeding or clotting or unusual bruising Bleeding, bruising, clotting discussed Nutritional guidance given: to have a serving of greens today Dose: hold today's dose of 2.5mg then resume 2.5mg daily F/U INR Date : 2 weeks?? Patient verbalizing understanding of instructions given. 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
== END 2024-05-26 10:08 | disposition home or self-care (01) ==
LOC: HO.ACS 09:43
PROVIDERS: PCP Internal Medicine; Visit Provider Internal Medicine
DX: Z79.01 Long term (current) use of anticoagulants (principal)

== ENCOUNTER → 2024-05-26 09:43 | Outpatient (BNVA) | payer MEDICARE, SELFPAY | PROVIDERS: PCP Internal Medicine; Visit Provider Internal Medicine | DX: I48.91 Unspecified atrial fibrillation (principal); Z79.01 Long term (current) use of anticoagulants; Z51.81 Encounter for therapeutic drug level monitoring | CPT/HCPCS: 85610; 99211 ==

== ENCOUNTER 2024-06-09 09:46 | Outpatient (AMB) | payer MEDICARE, SELFPAY ==
--- NOTE | 2024-06-09 09:52 | MHC.OFFVISCO ---
Intake Intake Visit Reasons: Anticoagulation Allergies clopidogrel [From PLAVIX] Allergy (Unknown, Verified 06/09/24 09:47) RASH Medication List - Last Reconciled 06/09/24 by Meche Kitchen RN acetaminophen ER 650 mg PO Q12H PRN ascorbic acid (vitamin C) 500 mg PO DAILY atorvastatin 20 mg PO DAILY B-complex with vitamin C 1 tab PO DAILY calcium carb-mag ox-zinc sulf 1 tab PO DAILY coenzyme Q10 10 mg PO TID ferrous sulfate 325 mg PO DAILY furosemide 20 mg PO DAILY metoprolol succinate ER 25 mg PO DAILY omega 2-cdn-asc-fish oil 1,000 mg (120 mg-180 mg) (Fish Oil) 1 cap PO DAILY saw palmetto 500 mg PO BID silver sulfadiazine 1% appl topical vitamin E 400 units PO DAILY warfarin (Jantoven) 2.5 tabs See Protocol PO YELITZA@0900 Nursing Note INR: 2.9- in therapeutic range of 2-3 Medications and supplements reviewed No changes in health, diet, medications, or supplements, Denies any signs and symptoms of bleeding or bruising or clotting. Bleeding, bruising, clotting discussed Nutritional guidance given Dose: 2.5mg x 7 F/U INR: 3 weeks Patient verbalizes understanding of instructions given Anti-Coag Initial Assessment Social Hx Patient Tobacco Use Status: Never used Tobacco alcohol intake: unknown Coding Level of Care Code Est Patient Level 1 Diagnoses Current use of anticoagulant therapy Z79.01 Results AMB INR Fingerstick AMB INR Fingerstick 2.9 Last Edit by Meche Kitchen RN on 06/09/24 09:54 Assessment & Plan Assessment & Plan (1) Current use of anticoagulant therapy: Code(s): Z79.01 - retirement (current) use of anticoagulants Category: Medical
[2024-06-09 09:53] LABS: Prothrombin Time Whole Bld POC 35.2 sec (11.1-13.5); ~PT, ~INR - Anti Coag Clinic 2.9 (0.9-1.1)
== END 2024-06-09 09:58 | disposition home or self-care (01) ==
LOC: HO.ACS 09:46
PROVIDERS: PCP Internal Medicine; Visit Provider Internal Medicine
DX: Z79.01 Long term (current) use of anticoagulants (principal)

== ENCOUNTER → 2024-06-09 09:46 | Outpatient (BNVA) | payer MEDICARE, SELFPAY | PROVIDERS: PCP Internal Medicine; Visit Provider Internal Medicine | DX: I48.91 Unspecified atrial fibrillation (principal); Z79.01 Long term (current) use of anticoagulants; Z51.81 Encounter for therapeutic drug level monitoring | CPT/HCPCS: 85610; 99211 ==

== ENCOUNTER 2024-06-30 10:19 | Outpatient (AMB) | payer MEDICARE, SELFPAY ==
[2024-06-30 10:49] LABS: ~PT, ~INR - Anti Coag Clinic 3.3 (0.9-1.1)
--- NOTE | 2024-06-30 10:53 | MHC.OFFVISCO ---
Intake Intake Visit Reasons: Anticoagulation Allergies clopidogrel [From PLAVIX] Allergy (Unknown, Verified 06/30/24 10:40) RASH Medication List - Last Reconciled 06/30/24 by Carolina Diaz, GUSTAVO acetaminophen ER 650 mg PO Q12H PRN ascorbic acid (vitamin C) 500 mg PO DAILY atorvastatin 20 mg PO DAILY B-complex with vitamin C 1 tab PO DAILY calcium carb-mag ox-zinc sulf 1 tab PO DAILY coenzyme Q10 10 mg PO TID ferrous sulfate 325 mg PO DAILY furosemide 20 mg PO DAILY metoprolol succinate ER 25 mg PO DAILY omega 9-fnr-lwx-fish oil 1,000 mg (120 mg-180 mg) (Fish Oil) 1 cap PO DAILY saw palmetto 500 mg PO BID silver sulfadiazine 1% appl topical vitamin E 400 units PO DAILY warfarin (Jantoven) 2.5 tabs See Protocol PO YELITZA@0900 Nursing Note INR 3.3?out of therapeutic range of 2-3 Medications and supplements reviewed Patient status: well Medications or supplements: no changes Diet: usual diet for pt Denies any signs and symptoms of bleeding or clotting or unusual bruising Bleeding, bruising, clotting discussed Nutritional guidance given: to have a serving of greens today Dose: 2.5mg daily F/U INR Date : 3 weeks?? Patient verbalizing understanding of instructions given. Anti-Coag Initial Assessment Social Hx Patient Tobacco Use Status: Never used Tobacco alcohol intake: unknown Coding Level of Care Code Est Patient Level 1 Diagnoses Current use of anticoagulant therapy Z79.01 Assessment & Plan Assessment & Plan (1) Current use of anticoagulant therapy: Code(s): Z79.01 - [facility] (current) use of anticoagulants Category: Medical
== END 2024-06-30 10:54 | disposition home or self-care (01) ==
LOC: HO.ACS 10:19
PROVIDERS: PCP Internal Medicine; Visit Provider Internal Medicine
DX: Z79.01 Long term (current) use of anticoagulants (principal)

== ENCOUNTER → 2024-06-30 10:19 | Outpatient (BNVA) | payer MEDICARE, SELFPAY | PROVIDERS: PCP Internal Medicine; Visit Provider Internal Medicine | DX: I48.91 Unspecified atrial fibrillation (principal); Z79.01 Long term (current) use of anticoagulants; Z51.81 Encounter for therapeutic drug level monitoring | CPT/HCPCS: 85610; 99211 ==

== ENCOUNTER 2024-07-21 10:20 | Outpatient (AMB) | payer MEDICARE, SELFPAY ==
[2024-07-21 10:42] LABS: Prothrombin Time Whole Bld POC 39.1 sec (11.1-13.5); ~PT, ~INR - Anti Coag Clinic 3.3 (0.9-1.1)
--- NOTE | 2024-07-21 10:42 | MHC.OFFVISCO ---
Intake Intake Visit Reasons: Anticoagulation Allergies clopidogrel [From PLAVIX] Allergy (Unknown, Verified 07/21/24 10:36) RASH Medication List - Last Reconciled 07/21/24 by Meche Kitchen RN acetaminophen ER 650 mg PO Q12H PRN ascorbic acid (vitamin C) 500 mg PO DAILY atorvastatin 20 mg PO DAILY B-complex with vitamin C 1 tab PO DAILY calcium carb-mag ox-zinc sulf 1 tab PO DAILY coenzyme Q10 10 mg PO TID ferrous sulfate 325 mg PO DAILY furosemide 20 mg PO DAILY metoprolol succinate ER 25 mg PO DAILY omega 0-ycw-bqx-fish oil 1,000 mg (120 mg-180 mg) (Fish Oil) 1 cap PO DAILY saw palmetto 500 mg PO BID silver sulfadiazine 1% appl topical vitamin E 400 units PO DAILY warfarin (Jantoven) 2.5 tabs See Protocol PO YELITZA@0900 Nursing Note INR 3.3-? out of therapeutic range of 2-3 Medications and supplements reviewed- no changes Patient status: pt amb with cane Medications or supplements: no changes Diet: good appetite Denies any signs and symptoms of bleeding or clotting or unusual bruising Bleeding, bruising, clotting discussed Nutritional guidance given: eat greens to lower, no reds for 2 days pt does not like cooked greens, eats hyacinth lettuce Dose: pt takes half tabs daily- hold 2.5mg today then 2.5mg x 7 F/U INR Date : 2 weeks? Patient verbalizing understanding of instructions given. 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
== END 2024-07-21 10:51 | disposition home or self-care (01) ==
LOC: HO.ACS 10:20
PROVIDERS: PCP Internal Medicine; Visit Provider Internal Medicine
DX: Z79.01 Long term (current) use of anticoagulants (principal)

== ENCOUNTER → 2024-07-21 10:20 | Outpatient (BNVA) | payer MEDICARE, SELFPAY | PROVIDERS: PCP Internal Medicine; Visit Provider Internal Medicine | DX: I48.91 Unspecified atrial fibrillation (principal); Z79.01 Long term (current) use of anticoagulants; Z51.81 Encounter for therapeutic drug level monitoring | CPT/HCPCS: 85610; 99211 ==

== ENCOUNTER 2024-08-04 10:20 | Outpatient (AMB) | payer MEDICARE, SELFPAY ==
[2024-08-04 10:34] LABS: Prothrombin Time Whole Bld POC 33.2 sec (11.1-13.5); ~PT, ~INR - Anti Coag Clinic 2.8 (0.9-1.1)
--- NOTE | 2024-08-04 10:41 | MHC.OFFVISCO ---
Intake Intake Visit Reasons: Anticoagulation Allergies clopidogrel [From PLAVIX] Allergy (Unknown, Verified 08/04/24 10:30) RASH Medication List - Last Reconciled 08/04/24 by Carolina Diaz, RN acetaminophen ER 650 mg PO Q12H PRN ascorbic acid (vitamin C) 500 mg PO DAILY atorvastatin 20 mg PO DAILY B-complex with vitamin C 1 tab PO DAILY calcium carb-mag ox-zinc sulf 1 tab PO DAILY coenzyme Q10 10 mg PO TID ferrous sulfate 325 mg PO DAILY furosemide 20 mg PO DAILY metoprolol succinate ER 25 mg PO DAILY omega 0-qbw-olx-fish oil 1,000 (120-180) mg (Fish Oil) 1 cap PO DAILY saw palmetto 500 mg PO BID silver sulfadiazine 1% appl topical vitamin E 400 units PO DAILY warfarin (Jantoven) 2.5 tabs See Protocol PO YELITZA@0900 Nursing Note INR: 2.8 in therapeutic range of 2-3 Medications and supplements reviewed Pt states he stopped taking turmeric when his INR started going up and staying a little over or borderline. He will start taking it again and will increase his greens and green tea. No changes in health, diet, medications, or supplements, Denies any signs and symptoms of bleeding or bruising or clotting. Bleeding, bruising, clotting discussed Nutritional guidance given. Food list discussed. Dose: 2.5mg X 7 days F/U INR: 3 week per pt request Patient verbalizes understanding of instructions given Anti-Coag Initial Assessment Social Hx Patient Tobacco Use Status: Never used Tobacco alcohol intake: unknown Coding Level of Care Code Est Patient Level 1 Diagnoses Current use of anticoagulant therapy Z79.01 Assessment & Plan Assessment & Plan (1) Current use of anticoagulant therapy: Code(s): Z79.01 - [facility] (current) use of anticoagulants Category: Medical
== END 2024-08-04 10:45 | disposition home or self-care (01) ==
LOC: HO.ACS 10:20
PROVIDERS: PCP Internal Medicine; Visit Provider Internal Medicine
DX: Z79.01 Long term (current) use of anticoagulants (principal)

== ENCOUNTER → 2024-08-04 10:20 | Outpatient (BNVA) | payer MEDICARE, SELFPAY | PROVIDERS: PCP Internal Medicine; Visit Provider Internal Medicine | DX: I48.91 Unspecified atrial fibrillation (principal); Z79.01 Long term (current) use of anticoagulants; Z51.81 Encounter for therapeutic drug level monitoring | CPT/HCPCS: 85610; 99211 ==

== ENCOUNTER 2024-08-25 10:07 | Outpatient (AMB) | payer MEDICARE, SELFPAY ==
--- OUTSIDE RECORDS SUMMARY | 2024-08-25 10:11 | XMS_ITS ---
[facility] Address [address] [place] [address] Care Team Providers Care City Planning Aide Name Role Phone Kirk Randle MD Primary Care Provider UnavailAnuradha Camp Unavailable [phone] Allergies Allergen (clinical drug ingredient) Drug/Non Drug Allergy documented on EMR Reaction Allergy Type Onset Date Status clopidogrel Plavix rash Drug Allergy Activ e REASON FOR VISIT Painful Nail(s) aggrevated by shoes and causing difficulty standing/walking., At Risk Footcare Medications Medication SIG (Take, Route, Frequency, Duration) Notes Start Date End Date Status Simvastatin 40 MG 1 tablet in the even ing Orally Once a day for 30 day(s) Active Metoprolol Succinate ER 25 MG 1 tablet Orally Once a day for 30 day(s) Active Multivitamin Active Furosemide Active Fish Oil 1200 MG 1 capsule Orally Onc e a day for 30 day(s) Active Aspirin 81 MG 1 tablet Orally Once a day for 30 day(s) Active Ibuprofen 800 MG 1 tablet every Orall y Three times a day for 14 days Not-Taking Lisinopril 10 MG 1 tablet Orally Once a day for 30 day(s) Not-Taking Ibuprofen 800 MG 1 tablet every Orall y Three times a day for 14 days 07/04/2015 Not-Taking Cipro 500 MG 1 tablet Orally Twic e a day for 10 day(s) 08/24/2015 Not-Taking Gym Note . . . Medical from gym ; he has been disabled from 07/27/15 thru 09/16/15 09/14/2015 Not-Taking Ammonium Lactate 12 % 1 application to affected area Externally Twice a day to dry areas of skin on feet for 30 days Active Warfarin Sodium 5 MG 1 tablet Orally Two times a Week for 30 day(s) Active Social History Tobacco Use: Social History Observation Description Date Details (start date - stop date) Never Smoker NA - NA Tobacco Use/Smoking Question Answer Notes Are you a: nonsmoker Additional Findings: Tobacco Non-User Current no n-smoker Tobacco use other than smoking: Question Answer Notes Are you an other tobacco user? 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, bilateral legs I70.203 ; Pain in right toe(s) M79.674 ; Pain in left toe(s) M79.675 ; Other hammer toe(s) (acquired), left foot M20.42 ; Other hammer toe(s) (acquired), right foot M20.41 and Venous insufficiency I87.2 Assessments Encounter Date Diagnosis (ICD Code) Assessment Notes Treatment Notes Treatment Clinical Notes Section Notes 05/22/2024 Tinea unguium (ICD-10 - B35.1) 05/22/2024 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, bilateral legs (ICD-10 - I70.203) 05/22/2024 Pain in right toe(s) (ICD-10 - M79.674) 05/22/2024 Pain in left toe(s) (ICD-10 - M79.675) 05/22/2024 Other hammer toe(s) (acquired), left foot (ICD-10 - M20.42) 05/22/2024 Other hammer toe(s) (acquired), right foot (ICD-10 - M20.41) 05/22/2024 Venous insufficiency (ICD-10 - I87.2) Plan Of Treatment Next Appt Details Follow Up: 3 Months, Reason: Provider Name:Anuradha amado, 11/20/2024 11:15:00 AM, [address] [facility], [place], [address], Procedure Notes * Category Sub-Category Detail Notes Debride Nail 6-10 Nail debridement Nail debridem ent performed extensively to reduce/remove overall nail length, girth, thickness, subungual debris, and necrotic tissue, by manual and electrical means through the use of a nail nipper and/or dremel, to more viable healthy nail plate or bed tissue 1-5. Silver nitrate used for any petechial bleeding as necessary. Patient chooses, no pharmaceutical tx (10362) Keratoma Treatment Parring or Cutting o f Benign Hyperkeratotic Lesion(s) 17994 ( More than 4 Lesions ) - The Benign hyperkeratotic lesions, as described above were pared, and/or cut utilizing a sterile 15 blade, tissue nippers, and/or dremel , Q8 Progress Notes * Vladimir FLYNNDOB:1940 (84 yo M)Acc No.[id number]:05/22/2024 Progress Note Patient:?Vladimir Flynn Provider:?Anuradha Hermosillo DPM :1940???Age:84 Y???Sex:Male Deshaun e:05/22/2024 Address:[address] [place] [address], [place], [place] Pcp:Kirk Randle MD Subjective: * Chief Complaints: * ???Painful Nail(s) aggrevate d by shoes and causing difficulty standing/walking.At Risk Footcare * HPI: ???Painful Nails:?Pt States Last PCP Visit:?Date:?01/08/2024 * ROS:?General/Constitutional:?Nausea?denies, denies.?Vomiting?denies, denies.?Hunger Thirst?denies, denies.?Loss appetite?denies, denies.?Chills?denies, denies.?Fatigue?denies, denies.?Fever?denies, denies.?Night Sweats denies, denies.?Unexplained weight loss?denies, denies.?Ophthalmologic:?Blurred vision?denies, denies.?Red eye?denies, denies.?HEENTM:?Dentures?denies, denies.?Dizziness?denies, denies.?Glasses/contacts?admits, admits.?Retinopathy?denies, denies.?Blurred/double vision?denies, denies.?TMJ?denies, denies.?Discharge/drainage?denies, denies.?Implants?denies, denies.?Hard of hearing ?denies, denies.?Difficulty chewing/swallowing/speaking?denies, denies.?Nose bleeds?denies, denies.?Sore mouth?denies, denies.?Swollen glands?denies, denies.?Respiratory:?On Oxygen?denies, denies.?Pneumonia/pleurisy?denies, denies.?Bronchitis?denies, denies.?Emphysema?denies, denies.?Coughing?denies, denies.?Cough blood?denies, denies.?Shortness of breath?denies, denies.?Wheezing?denies, denies.?Cardiovascular:?Pacemaker?denies, denies.?MVP?denies, denies.?WPW?denies, denies.?CHF?denies, denies.?Heart attack?admits, admits.?Septal defect?denies, denies.?Rapid beat?denies, denies.?Chest pain ?denies, denies.?Atrial Fib.?admits,admits.?Murmur/Palpitations?denies, denies.?Gastrointestinal:?Hemorrhoids?denies, denies.?Stomach/Abdominal pain?denies, denies.?Dark blood stool?denies, denies.?Irritable bowel ?denies, denies.?Constipation?denies, denies.?Diarrhea?denies, denies.?Vomiting?denies, denies.?Hematology:?Swelling?admits, admits.?Bruising?denies, denies.?Bleeding problem?denies, denies.?Genitourinary:?Blood urine?denies, denies.?Frequent/Painfu/urination/bladder control?denies, denies.?Kidney stones?denies, denies.?Infection (UTI)?denies, denies.?Nephropathy?denies, denies.?Musculoskeletal:?Hammertoes?admits, admits.?Bunions?denies, denies.?Scoliosis/kyphosis?denies, denies.?Muscle cramps / walking?denies, denies.?Generalized aches and pains?denies, denies.?Weakness?denies, denies.?Integ.:?Santamaria?denies, denies.?Scars?denies, denies.?Corns/calluses?denies, denies.?Ingrown nails?denies, denies.?Painful nails?admits, admits.?Rashes?denies, denies.?Neurologic:?Difficulty sleeping?denies, denies.?Bipolar?denies, denies.?Brain disorder?denies, denies.?Balance trouble?denies, denies.?Confusion?denies, denies.?Fainting/blackouts?denies, denies.?Headache?denies, denies.?Tremors?denies, denies.? * Medical History:? * Surgical History:?cataract s urgery-right eye new lens 2007stents-blocked artery 02/09/2004HT/ulcer left 07/28/2015Right Total Knee Replacement 10/06/2018Left amputation, toe 08/16/2022ick-line iv antiboitics 06/2022 * Hospitalization/Major Diagno stic Procedure:?[facility] pt passed out for two seconds, lab work was done everything came out fine. 04/2016[facility] left eye cataract surgery 01/22/2017[facility]- fell on face- test done viral infection affected heart 1 month Rehab few weeks 2020 * Family History:?Mother: dece ased, diagnosed with Other malignant neoplasm of unspecified site.?Father: , diagnosed with Other malignant neoplasm of unspecified site.?Siblings: cancer, kidney/liver disease.? * Social History:?Tobacco Use:?Tobacco Use/Smoking?Are you a:?nonsmoker ?Additional Findings: Tobacco Non-User?Current non-smoker ?Tobacco use other than smoking?Are you an other tobacco user??No ???Miscellaneous:?no Caffeine, none. ?no Children. ?Exercise: yes, golf, cardio at gym, isometric workouts 6 days a week. ?Marital status: single. ?Occupation: retired [employer]. * Medications:?TakingAspirin 8 1 MG Tablet Delayed Release 1 tablet Orally Once a dayFish Oil 1200 MG Capsule 1 capsule Orally Once a dayFurosemide Multivitamin Metoprolol Succinate ER 25 MG Tablet Extended Release 24 Hour 1 tablet Orally Once a daySimvastatin 40 MG Tablet 1 tablet in the evening Orally Once a dayWarfarin Sodium 5 MG Tablet 1 tablet Orally Two times a WeekAmmonium Lactate 12 % Cream 1 application to affected area Externally Twice a day to dry areas of skin on feetTaking Aspirin 81 MG Tablet Delayed Release 1 tablet Orally Once a dayTaking Fish Oil 1200 MG Capsule 1 capsule Orally Once a dayTaking Furosemide Taking Multivitamin Taking Metoprolol Succinate ER 25 MG Tablet Extended Release 24 Hour 1 tablet Orally Once a dayTaking Simvastatin 40 MG Tablet 1 tablet in the evening Orally Once a dayTaking Warfarin Sodium 5 MG Tablet 1 tablet Orally Two times a WeekTaking Ammonium Lactate 12 % Cream 1 application to affected area Externally Twice a day to dry areas of skin on feetNot-Taking/PRNGym Note . . . . Medical from gym; he has been disabled from 07/27/15 thru 09/16/15Lisinopril 10 MG Tablet 1 tablet Orally Once a dayIbuprofen 800 MG Tablet 1 tablet every Orally Three times a dayCipro 500 MG Tablet 1 tablet Orally Twice a dayIbuprofen 800 MG Tablet 1 tablet every Orally Three times a dayMedication List reviewed and reconciled with the patientNot-Taking/PRN Gym Note . . . . Medical from gym; he has been disabled from 07/27/15 thru 09/16/15Not-Taking/PRN Lisinopril 10 MG Tablet 1 tablet Orally Once a dayNot-Taking/PRN Ibuprofen 800 MG Tablet 1 tablet every Orally Three times a dayNot-Taking/PRN Cipro 500 MG Tablet 1 tablet Orally Twice a dayNot-Taking/PRN Ibuprofen 800 MG Tablet 1 tablet every Orally Three times a dayMedication List reviewed and reconciled with the patient * Allergies:?Plavix: robyyes[A llergies Verified] Objective: * Vitals:?Ht: 6 ft 3 in, Wt: 2 15, BMI: 26.87, Shoe size: 13, BP: 116/70 mm Hg, Wt- k.52 kg. * Examination: ???Nails: ?NAILS are:? Elongated, overgrown, dystrophic, lytic, greater than 3mm thick, discolored and friable with crumbly malodorous subungual debris, with dull to no pain on palpation due to neuropathy, 1-4?B/L.?Vascular: ?DP PULSES(B):? 0/4, B/L.?PT PULSES(B):? 0/4, B/L.?CAPILLARY FILL TIME:?delayed, all digits, B/L.?TEMPERTURE GRADIENT(C):?decreased, cool to cool, proximal to distal, B/L.?PIGMENTATION:?rubrous , Right.?Neurological: ?SENSORY:?Neurological exam reveals intact sensorium, pain sensation normal, vibration sensation intact, pinprick sensation is normal in the lower extremities, Pt denies, anesthesia, burning, paresthesia, tingling, B/L.?Orthopedic: ?MUSCLE STRENGTH:?5/5 all groups in a symmetrical fashion , B/L.?DIGITAL DEFORMITIES:? Amputation t4, T9, Digital contracture, PIPJ, 2-4 B/L, non-reducible with WB or to push-up test, no over, nor underlapping.?Dermatologic: ?SKIN FINDINGS:?Skin exam reveals Keratotic lesion(s) located at, Plantar/posterior stan heels , TA , T5 , SUB MTH (s) , 1 , B/L.?General Examination: ?GENERAL APPEARANCE:?Reveals a pleasant, alert, well nourished, well developed, well hydrated individual, who demonstrates proper attention to hygene/body habitus, and is in no acute distress.?ORIENTED:?person, place, and time.? Assessment: * Assessment: 1.?Tinea unguium - B35.1?2.? 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 Other hammer toe(s) (acquired), right foot - M20.41?7.?Venous insufficiency - I87.2? Plan: * Treatment: * Procedures:?Debride Nail 6-10:?Nail debridement?Nail debridement performed extensively to reduce/remove overall nail length, girth, thickness, subungual debris, and necrotic tissue, by manual and electrical means through the use of a nail nipper and/or dremel, to more viable healthy nail plate or bed tissue 1-5. Silver nitrate used for any petechial bleeding as necessary. Patient chooses, no pharmaceutical tx (82285).?Keratoma Treatment:?Parring or Cutting of Benign Hyperkeratotic Lesion(s)?18266 ( More than 4 Lesions ) - The Benign hyperkeratotic lesions, as described above were pared, and/or cut utilizing a sterile 15 blade, tissue nippers, and/or dremel , Q8.? * Procedure Codes:?25695 DEBRI DE NAIL, 6 OR MORE, Modifiers: XS 60511 TRIM SKIN LESIONS, OVER 4, Modifiers: XS , Q8 * Follow Up:?3 Months * Images: * Sign off status: Completed true * Provider:?Anuradha Hermosillo DPM Date:? Generated for Jaelyn de la cruz/Armond/Sujatasmvenus on:?08/25/2024 10:11 AM EST History and Physical Notes * HPI (History of Present Illness) Category Sub-Category Detail Notes Category Not es Painful Nails Pt States Last PCP Visit: Date:: 01/08/2024 Examination Category Sub-Category Detail Notes Category Not es Neurological SENSORY: Neurological exa m reveals intact sensorium, pain sensation normal, vibration sensation intact, pinprick sensation is normal in the lower extremities, Pt denies, anesthesia, burning, paresthesia, tingling, B/L Dermatologic SKIN FINDINGS: Skin exam reveal s Keratotic lesion(s) located at, Plantar/posterior stan heels , TA , T5 , SUB MTH (s) , 1 , B/L Orthopedic DIGITAL DEFORMITIES: Amputation t4, T9, Digital contracture, PIPJ, 2-4 B/L, non-reducible with WB or to push-up test, no over, nor underlapping MUSCLE STRENGTH: 5/5 all groups in a symmetrical fashion , B/L General Examination GENERAL APPEARANCE: Reveals a pleasant, alert, well nourished, well developed, well hydrated individual, who demonstrates proper attention to hygene/body habitus, and is in no acute distress ORIENTED: person, place, and t [place] [facility] DP PULSES(B): 0/4, B/L PT PULSES(B): 0/4, B/L CAPILLARY FILL TIME: delayed, all digits , B/L TEMPERTURE GRADIENT(C): decreased, cool to cool, proximal to distal, B/L PIGMENTATION: rubrous , Right Nails NAILS are: Elongated, overg rown, dystrophic, lytic, greater than 3mm thick, discolored and friable with crumbly malodorous subungual debris, with dull to no pain on palpation due to neuropathy, 1-4 B/L
--- OUTSIDE RECORDS SUMMARY | 2024-08-25 10:11 | XMS_ITS | Data Portability ---
Author Organization [facility] [facility], Main Office Address [address], [address] [place] [address] Care Team Providers Care Fitness Plan Coordinator Name Role Phone BARI AMIN - 2ND FLOOR OTHER Assessment Encounter Date Assessment Date Assessment LastModified by Organization Details LastModified Time 05/23/2021 05/23/202105/23 wbc 7.2, hgb 13.6, plt 262, na 142, k 3.7, creat 0.8, sed rate 24, crp 3.76 [email or web address] Not available 05/23/2021 12:08:48 Plan of Treatment Reminders Order Date Submit Date Provider Last Modified By Organization Details Last Modified Time Details Appointments None record ed. Lab None record ed. Referral None record ed. Procedures None record ed. Surgeries None record ed. Imaging None record ed. Medication Orders None record ed. Patient TargetsNo targets recorded. Patient Instructions Encounter Date Encounter Id Patient Instructions Last Modified By Organization Details Last Modified Time 05/23/2021 [id number] exam of pt, revi ew of chart, discussion with social work, interventional radiology 50 minutes [email or web address] Not available 05/23/2021 12:09:48 Reason for Referral None Reported. Problems Name Problem SNOMED Code Status Onset Date Resolution Date Notes Provider Name and Address Organization Details Recorded Time Infective endocarditi s 480367605 Active 2020 STACY SULLIVAN [address], [address], [place], [address], [facility] 08:27:08 Osteoarthri tis 194239190 Active 2020 STACY SULLIVAN [address], [address], [place], [address], [facility] 1 08:27:39 History of cerebrovasc ular accident 591615533 Active 2020 STACY SULLIVAN [address], [address], [place], [address], [facility] 08:28:06 Recurrent falls 740548982 Active 2020 STACY SULLIVAN [address], [address], [place], [address], [facility] 1 08:28:20 Pressure ulcer Active 2020 STACY SULLIVAN [address], [address], [place], [address], [facility] 1 08:30:05 Deep venous thrombosis of upper extremity 204775640 Active 2020 STACY SULLIVAN [address], [address], [place], [address], [facility] 1 08:30:52 Multinodula r goiter 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 Active 2020 STACY SULLIVAN [address], [address], [place], [address], [facility] 08:32:27 Hypomagnese ezequiel 294521159 Active 2020 STACY SULLIVAN [address], [address], [place], [address], [facility] 1 08:57:53 Asthenia 37807290 Active 2020 oRsenda ferro, [facility] 11:24:32 Osteoarthri tis of left knee joint 6098982742167 09 Active 2018 Feliz Gonzalez MD [address], [address], [place], [address], [facility] 9 15:05:21 Essential hypertensio n 51164457 Active 2018 Feliz Gonzalez MD [address], [address], [place], [address], [facility] 9 15:05:25 Mixed hyperlipide ezequiel 722494026 Active 2018 Feliz Gonzalez MD [address], [address], [place], [address], [facility] 15:05:33 Unsteady gait Active 2018 Feliz Gonzalez MD [address], [address], [place], [address], [facility] 9 15:05:38 Atrial fibrillatio n 68595363 Active 2018 STACY SULLIVAN [address], [address], [place], [address], [facility] 9 08:43:44 Problem Notes None recorded. Procedures Surgical History Date Name Laterality Status Provider Name and Address Organization Details Recorded Time percutaneous transluminal coronary angioplasty completed STACY SULLIVAN [address], [address], [place], [address], [facility] 05/05/2021 08:29:08 Imaging Results None recorded. Procedure Notes None recorded. Medical Equipment None Reported. Allergies Allergen ID Allergen Name Allergen Category Reaction Reaction Severity Criticality Documentation Date Start Date Code Code System Note Provider Name and Address Organization Details Recorded Time [id number] Plavix medicatio n rash severe Not available 10/13/2018 32012 2 RxNorm Not Available Not Available Not Available Medications Not known to be on any medication Vitals Date Recorded Body temperature Heart rate Respiratory rate Oxygen saturation Oxygen saturation in Arterial blood by Pulse oximetry Systolic blood pressure Diastolic blood pressure Provider Name and Address Organization Details Last Updated DateTime 1 97.2 [degF] 79 /min 18 /min 96 % 96 % 145 mm[Hg] 73 mm[Hg] Rosenda bower [facility] 1 11:13:36 Date Recorded Heart rate Respiratory rate Body temperature Oxygen saturation Oxygen saturation in Arterial blood by Pulse oximetry Systolic blood pressure Diastolic blood pressure Provider Name and Address Organization Details Last Updated DateTime 1 73 /min 18 /min 97.4 [degF] 93 % 93 % 129 mm[Hg] 89 mm[Hg] HERMINIA DENSON NP [address], [address], [place], [address], [facility] 14:20:11 Date Recorded Body temperature Oxygen saturation Oxygen saturation in Arterial blood by Pulse oximetry Heart rate Respiratory rate Systolic blood pressure Diastolic blood pressure Provider Name and Address Organization Details Last Updated DateTime 96.6 [degF] 97 % 97 % 89 /min 18 /min 124 mm[Hg] 81 mm[Hg] STACY Weber [address], [address], [place], [address], [employer] [facility] 1 11:12:09 Date Recorded Systolic blood pressure Diastolic blood pressure Provider Name and Address Organization Details Last Updated DateTime 05/10/2021 124 mm[Hg] 65 mm[Hg] Feliz Gonzalez MD [address], [address], [place], [address], [facility] 05/10/2021 12:55:10 Date Recorded Systolic blood pressure Diastolic blood pressure Provider Name and Address Organization Details Last Updated DateTime 05/17/2021 104 mm[Hg] 74 mm[Hg] Feliz Gonzalez MD [address], [address], [place], [address], [facility] 05/17/2021 15:20:50 Social History Question Answer Notes LastModified by Organizat ion Details LastModified Time Tobacco Smoking Status Never Smoker Not Available [facility] 07/05/2020 03:13:23 Do You Have An Advance Directive? Yes FULL CODE/use Dialysis/unde cided About Nutrition/use Hydration Information not available 05/05/2021 What Is Your Level Of Alcohol Consumption? Occasional [id number] Information not available 07/05/2020 What Is Your Code Status? Full Code Information not available 05/05/2021 Legal Guardian? No Information not available 05/05/2021 Do You Have A Medical Power Of Immigration Services Officer? Yes HCP On File Information not available 05/05/2021 Do You Feel Stressed (tense, Restless, Nervous, Or Anxious, Or Unable To Sleep At Night)? [id number] Information not available 05/05/2021 Has Tobacco Cessation Counseling Been Provided? No NA Information not available 05/05/2021 Do You Or Have You Ever Used Any Other Forms Of Tobacco Or Nicotine? No Information not available 05/05/2021 Sex: Unknown Functional Status None recorded. Mental Status None recorded. Family History Nothing Reported Notes:N/C Medical History No medical history recorded. Immunizations Vaccine Type Date Status Note Provider Nam e and Address Organization Details Recorded Time COVID-19, mRNA, LNP-S, PF, 100 mcg/0.5mL dose or 50 mcg/0.25mL dose 10/11/2020 completed STCAY SULLIVAN [address], [address], [place], [address], [facility] 05/05/2021 11:09:25 COVID-19, mRNA, LNP-S, PF, 100 mcg/0.5mL dose or 50 mcg/0.25mL dose 11/08/2020 completed STACY SULLIVAN [address] [place] [address], [facility] [address], [place], [address], [facility] 05/05/2021 11:09:40 influenza, unspecified formulation 09/08/2018 [facility] 12/19/2018 15:12:21 Past Encounters Encounter ID Performer Location Encounter Start Date Encounter Closed Date Diagnosis/Indication Diagnosis SNOMED-CT Code Diagnosis ICD10 Code [id number] Feliz Gonzalez MD [facility] [address] 10/10/2018 14:54:06 10/28/2018 16:15:02 Osteoarthritis of left knee joint [id number] 57198 M17.12 Essential hypertension 53550792 I10 Mixed hyperlipidemia 267 827587 E78.2 Unsteady gait 561713827 R26.81 [id number] STACY SULLIVAN [facility] [address] 10/13/2018 08:02:37 10/28/2018 16:16:29 Osteoarthritis of left knee joint 1937776155 68919 M17.12 Essential hypertension 89504588 I10 Mixed hyperlipidemia 267 462302 E78.2 Unsteady gait 634710717 R26.81 Atrial fibrillation 4943 6004 I48.2 [id number] YOHAN MARTÍNEZ [facility] [address] [address] 05/05/2021 08:21:13 05/10/2021 15:30:51 Infective endocarditis 026229457 I33.0 Osteoarthritis 621784722 M15.0 Mixed hyperlipidemia 267 968330 E78.2 Essential hypertension 30393543 I10 Atrial fibrillation 4943 6004 I48.19 History of cerebrovascular accident 323307200 Z86.73 Recurrent falls 12111310 2 R29.6 Pressure ulcer 973558062 L89.90 Deep venou s thrombosis of upper extremity 135890333 I82.621 Multinodular goiter 2375 54316 E04.2 Hypomagnesemia 246265306 E83.42 [id number] KYREE SULLIVANP [facility] [address] 05/08/2021 10:39:43 05/11/2021 08:35:04 Infective endocarditis 145692600 I33.0 Atrial fibrillation 4943 6004 I48.19 Essential hypertension 48820988 I10 [id number] Feliz Gonzalez MD [facility] [address] [address] 05/10/2021 12:53:56 05/17/2021 15:11:21 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0 Bacterial arthritis 4824 5008 M00.88 Deep venou s thrombosis of upper extremity 366086675 I82.621 Asthenia 35798636 R53.1 [id number] HERMINIA DENSON NP [facility] [address] [address] 05/18/2021 14:18:12 05/22/2021 14:35:55 Infective endocarditis 059512879 I33.0 Bacterial arthritis 4824 5008 M00.88 Deep venou s thrombosis of upper extremity 212737870 I82.621 Asthenia 95562691 R53.1 Atrial fibrillation 4943 6004 I48.19 [id number] STACY Weber [facility] [address] [address] 05/23/2021 11:10:46 05/25/2021 11:25:14 Infective endocarditis 548783194 I33.0 Bacterial arthritis 4824 5008 M00.88 Pressure ulcer 004492835 L89.90 Deep venou s thrombosis of upper extremity 248419913 I82.621 Mixed hyperlipidemia 267 256124 E78.2 Essential hypertension 07569487 I10 Atrial fibrillation 4943 6004 I48.19 Health Concerns Section Related Observation LastModified by Organization Detai ls LastModified Time None Recorded Concern Status LastModified by Organization Details LastModified Time None Recorded Advance Directives Directive Y: FULL CODE/use dialysis/un decided about nutrition/use hydration Payers Encounter Date Sequence Insurance Name Policy Number Policy Flores Covered Member ID Flores Member ID Guarantor Name 05/10/2021 1 [facility] - MEDICARE PREFERRED (MEDICARE REPLACEMENT HMO) MJ Flynn [id number] Vladimir Flynn 05/11/2021 1 [facility] - MEDICARE PREFERRED (MEDICARE REPLACEMENT HMO) MJ Flynn [id number] Vladimir Flynn 05/17/2021 1 [facility] MEDICARE PREFERRED (MEDICARE REPLACEMENT HMO) MJ Flynn [id number] Vladimir Gee 05/18/2021 1 [facility] - MEDICARE PREFERRED (MEDICARE REPLACEMENT HMO) [facility] Vladimir Flynn [id number] Vladimir Flynn 05/23/2021 1 [facility] - MEDICARE PREFERRED (MEDICARE REPLACEMENT HMO) [facility] [id number] Vladimir Flynn Notes Date Note Type Note Provider Name and Address Organization Details Recorded Time 05/10/2021 text/html Patient is a 81 yo male admit from hospital presenting from outside facility with fever and hypotension. Dx with sepsis with infective endocarditis with concern for septic arthritis at T2-3. Eval by ID and started on Nafcillin to complete 6 week course. Imaging positive for DVT RUE started on lovenox bridge to coumadin. Metoprolol and lasix doses adjusted for hypotension. Wound care for chronic ulcers continued. PMH significant forOAhlda fibgait instabilityhtnhx CVA admit to facility for continued care and therapy Feliz Gonzalez MD [address] [place] [address], [address], [place], [address], [facility] 05/10/2021 13:19:34 05/11/2021 text/html Pt being seen fo r an acute rounding visit today. Pt had apparent fall this am with no injury. He states that he had gotten back from the bathroom, put his walker against the wall, sat on his bed. He started to slide towards the top of the bed and when he went to go put his feet up he hit the divet in the middle and fell oob to the floor landing on his buttocks. He states that he has no pain. Nsg reports no issues. addendum Pt's INR 1.81 today - will order 7.5mg today and continue 5mg daily and recheck INR Saturday. Rosenda ferro [facility] [facility] 05/11/2021 12:15:08 05/17/2021 text/html Patient is a 81 yo male resident seen for acute rounding. Completing Ab for endocarditis with potential discharge date of 05/23. Patient on coumadin for a fib with dose adjusted today. Strength and conditioning improving with therapy Feliz Gonzalez MD [address], [address], [place], [address], [facility] 05/17/2021 15:26:05 05/18/2021 text/html Vladimir is seen to day for an acute visit.Alert, pleasant, NAD. Uvaldo. abx. tx. well, goal home next . when IV abx. completed.Feels well, no c/o.Working with rehab - good progress. HERMINIA DENSON NP [address], [address], [place], [address], [facility] 05/18/2021 15:00:40 05/23/2021 text/html pt seen today fo r discharge summary. Patient presented to [facility] er from [place] (where he had been sent after 2 days in [facility] for rehab) with fever, hypotension and shaking chills. was diagnosed with sepsis and given IV antibiotics. His workup revealed infective endocarditidis along with imaging changes at T2-T3 consistent with infection likely osteo/diskitis/septic arthritis. ID was consulted and central line was placed. He was started on broad spectrum then changed to nafcillin which ended on 05/22/21. was also found to have a right upper extremity DVT along with a superficial thrombophlebitis on left side. He was started on lovenox coumadin bridge. It is noted that when he arrived to hospital he had multiple pressure ulcers which are resolving. was sent from there to [facility] for acute rehab. He had episodes of hypotension there and metoprolol was decreased and lasix dose adjusted. today pt is doing well, pressure ulcers are healing, finished IV nafcillin yesterday and is ambulatory with cane and walker. is therapeutic on his coumadin. pt notes that he has been on coumadin for atrial fib prior to going to hospital. pt denies chest pain, sob (except with exertion), abd pain. is eating well, moving his bowels and urinating normally. pt has no complaints. no concerns per nursing. STACY Weber [address], [address], [place], [address], [facility] 05/23/2021 12:09:56
--- OUTSIDE RECORDS SUMMARY | 2024-08-25 10:11 | XMS_ITS ---
Author Organization [facility] Address [address] [place] [address] Care Team Providers Care Diet Assistant Name Role Phone Kirk Randle MD Primary Care Provider UnavailAnuradha Camp Unavailable [phone] Allergies Allergen (clinical drug ingredient) Drug/Non Drug Allergy documented on EMR Reaction Allergy Type Onset Date Status clopidogrel Plavix rash Drug Allergy Activ e REASON FOR VISIT Painful Nail(s) aggrevated by shoes and causing difficulty standing/walking., At Risk Footcare Medications Medication SIG (Take, Route, Frequency, Duration) Notes Start Date End Date Status Ibuprofen 800 MG 1 tablet every Orall y Three times a day for 14 days 07/04/2015 Not-Taking Ibuprofen 800 MG 1 tablet every Orall y Three times a day for 14 days Not-Taking Cipro 500 MG 1 tablet Orally Twic e a day for 10 day(s) 08/24/2015 Not-Taking Lisinopril 10 MG 1 tablet Orally Once a day for 30 day(s) Not-Taking Gym Note . . . Medical from gym ; he has been disabled from 07/27/15 thru 09/16/15 09/14/2015 Not-Taking Simvastatin 40 MG 1 tablet in the even ing Orally Once a day for 30 day(s) Active Warfarin Sodium 5 MG 1 tablet Orally Two times a Week for 30 day(s) Active Multivitamin Active Metoprolol Succinate ER 25 MG 1 tablet Orally Once a day for 30 day(s) Active Ammonium Lactate 12 % 1 application to affected area Externally Twice a day to dry areas of skin on feet for 30 days Active Fish Oil 1200 MG 1 capsule Orally Onc e a day for 30 day(s) Active Furosemide Active Aspirin 81 MG 1 tablet Orally Once a day for 30 day(s) Active Social History Tobacco Use: Social History Observation Description Date Details (start date - stop date) Never Smoker NA - NA Tobacco Use/Smoking Question Answer Notes Are you a: nonsmoker Additional Findings: Tobacco Non-User Current no n-smoker Alcohol Screen Question Answer Notes Did you have a drink contain ing alcohol in the past year? Yes How often did you have a dri nk containing alcohol in the past year? Monthly or less (1 point) Points 1 Interpretation Negative Tobacco use other than smoking: Question Answer Notes Are you an other tobacco user? No Problems Problem Type SNOMED Code ICD Code Onset Dates Problem Status W/U Status Risk Notes Problem [id number] Ischemic ulcer of left foot, limited to breakdown of skin (L97.521) Active confirmed Vital Signs Height 6 ft 3 in in 08/21/2024 Weight 215 lbs 08/21/2024 BMI 26.87 kg/m2 08/21/2024 Blood pressure systolic 116 mm Hg 08/21/20 24 Blood pressure diastolic 80 mm Hg 024 Encounters Encounter Location Date Provider Diagnosis [facility] [address] [place] [address] 08/21/2024 Anuradha Jaimee Tinea unguium B35.1 ; Unspecified atherosclerosis of [place] arteries of extremities, bilateral legs I70.203 ; Pain in right toe(s) M79.674 ; Pain in left toe(s) M79.675 ; Other hammer toe(s) (acquired), left foot M20.42 ; Other hammer toe(s) (acquired), right foot M20.41 ; Venous insufficiency I87.2 and Ischemic ulcer of left foot, limited to breakdown of skin L97.521 Assessments Encounter Date Diagnosis (ICD Code) Assessment Notes Treatment Notes Treatment Clinical Notes Section Notes 08/21/2024 Tinea unguium (ICD-10 - B35.1) 08/21/2024 Unspecified atherosclerosis of [place] arteries of extremities, bilateral legs (ICD-10 - I70.203) 08/21/2024 Pain in right toe(s) (ICD-10 - M79.674) 08/21/2024 Pain in left toe(s) (ICD-10 - M79.675) 08/21/2024 Other hammer toe(s) (acquired), left foot (ICD-10 - M20.42) 08/21/2024 Other hammer toe(s) (acquired), right foot (ICD-10 - M20.41) 08/21/2024 Venous insufficiency (ICD-10 - I87.2) 08/21/2024 Ischemic ulcer of left foot, limited to breakdown of skin (ICD-10 - L97.521) Plan Of Treatment Next Appt Details Follow Up: 3 Months, Reason: Provider Name:Anuradha amado, 11/20/2024 11:15:00 AM, [address] [place] [address], [phone], Procedure Notes * Category Sub-Category Detail Notes Debride Nail 6-10 Nail debridement Due to the cl inical pathology outlined in the exam findings, performance of this nail treatment is medically necessary as its management by an unskilled/untrained nonprofessional would put this patients foot and overall health at risk. Therefore, debridement to affected nail(s), as described in exam ( TA, T1, T2, T3, T5, T6, T7, T8), was performed exclusively by the physician of record to reduce/remove overall nail length, girth, thickness, subungual debris, and necrotic tissue, by manual and/or electrical means through the use of a nail nipper and/or dremel-type facing grinder, to a more viable healthy nail plate or bed tissue 6-10 nails in total. Silver nitrate was used for any petechial bleeding as necessary. Definitive antifungal treatment options, both pharmaceutical and surgical, have been reviewed and discussed with the patient. The patient solely prefers the use of intermittent/as needed professional debridement services for their nail condition and understands the need for additional periodic treatments to maintain effectiveness in symptomatic relief - 20208 Keratoma Treatment Parring or Cutting o f Benign Hyperkeratotic Lesion(s) (-57) More than 4 Lesions - Due to the at risk nature of the patients medical condition as documented in the exam findings, performance of this keratoderma treatment is medically necessary as its management by an unskilled/untrained nonprofessional would put this patients foot and overall health at risk. Therefore, the benign hyperkeratotic lesions, ( 6) in total, locations as stated and described in the exam ( Plantar/posterior B/L heels , TA , T5 , SUB MTH (s) , 1 , B/L), were pared, and/or cut utilizing a sterile 15 blade, tissue nippers, and/or power dremel instrumentation by the physician of record - 56388 Progress Notes * Vladimir FYLNNDOB:1940 (84 yo M)Acc No.[id number]:08/21/2024 Progress Note Patient:?Vladimir FLYNN Provider:?Anuradha Hermosillo DPM :1940???Age:84 Y???Sex:Male Deshaun e:08/21/2024 Address:[address] [place] [address] [id number] Pcp:Kirk Randle MD Subjective: * Chief Complaints: * ???Painful Nail(s) aggrevate d by shoes and causing difficulty standing/walking.At Risk Footcare * HPI: ???At Risk footcare:?Pt States Last PCP Visit:?Date?06/09/2024 * ROS:?General/Constitutional:?Nausea?denies, denies, denies.?Vomiting?denies, denies, denies.?Hunger Thirst?denies, denies, denies.?Loss appetite?denies, denies, denies.?Chills?denies, denies, denies.?Fatigue?denies, denies, denies.?Fever?denies, denies, denies.?Night Sweats?denies, denies, denies.?Unexplained weight loss?denies, denies, denies.?Ophthalmologic:?Blurred vision?denies, denies, denies.?Red eye?denies, denies, denies.?HEENTM:?Dentures?denies, denies, denies.?Dizziness?denies, denies, denies.?Glasses/contacts?admits, admits, admits.?Retinopathy?denies, denies, denies.?Blurred/double vision?denies, denies, denies.?TMJ?denies, denies, denies.?Discharge/drainage?denies, denies, denies.?Implants?denies, denies, denies.?Hard of hearing ?denies, denies, denies.?Difficulty chewing/swallowing/speaking?denies, denies, denies.?Nose bleeds?denies, denies, denies.?Sore mouth?denies, denies, denies.?Swollen glands?denies, denies, denies.?Respiratory:?On Oxygen?denies, denies, denies.?Pneumonia/pleurisy?denies, denies, denies.?Bronchitis?denies, denies, denies.?Emphysema?denies, denies, denies.?Coughing?denies, denies, denies.?Cough blood?denies, denies, denies.?Shortness of breath?denies, denies, denies.?Wheezing?denies, denies, denies.?Cardiovascular:?Pacemaker?denies, denies, denies.?MVP?denies, denies, denies.?WPW?denies, denies, denies.?CHF?denies, denies, denies.?Heart attack?admits, admits, admits.?Septal defect?denies, denies, denies.?Rapid beat denies, denies, denies.?Chest pain ?denies, denies, denies.?Atrial Fib.?admits,admits,admits.?Murmur/Palpitations?denies, denies, denies.?Gastrointestinal:?Hemorrhoids?denies, denies, denies.?Stomach/Abdominal pain?denies, denies, denies.?Dark blood stool?denies, denies, denies.?Irritable bowel ?denies, denies, denies.?Constipation?denies, denies, denies.?Diarrhea denies, denies, denies.?Vomiting?denies, denies, denies.?Hematology:?Swelling?admits, admits, admits.?Bruising?denies, denies, denies.?Bleeding problem?denies, denies, denies.?Genitourinary:?Blood urine?denies, denies, denies.?Frequent/Painfu/urination/bladder control?denies, denies, denies.?Kidney stones?denies, denies, denies.?Infection (UTI)?denies, denies, denies.?Nephropathy?denies, denies, denies.?Musculoskeletal:?Hammertoes?admits, admits, admits.?Bunions?denies, denies, denies.?Scoliosis/kyphosis?denies, denies, denies.?Muscle cramps / walking?denies, denies, denies.?Generalized aches and pains?denies, denies, denies.?Weakness?denies, denies, denies.?Integ.:?Santamaria?denies, denies, denies.?Scars?denies, denies, denies.?Corns/calluses?denies, denies, denies.?Ingrown nails?denies, denies, denies.?Painful nails?admits, admits, admits.?Rashes?denies, denies, denies.?Neurologic:?Difficulty sleeping?denies, denies, denies.?Bipolar?denies, denies, denies.?Brain disorder?denies, denies, denies.?Balance trouble?denies, denies, denies.?Confusion?denies, denies, denies.?Fainting/blackouts?denies, denies, denies.?Headache?denies, denies, denies.?Tremors?denies, denies, denies.? * Medical History:? * Surgical History:?cataract s urgery-right eye new lens 2007stents-blocked artery 02/09/2004HT/ulcer left 07/28/2015Right Total Knee Replacement 10/06/2018Left amputation, toe 08/16/2022ick-line iv antiboitics 06/2022 * Hospitalization/Major Diagno stic Procedure:?[facility] ER pt passed out for two seconds, lab work was done everything came out fine. 04/2016[facility] left eye cataract surgery 01/22/2017C- fell on face- test done viral infection affected heart 1 month Rehab few weeks 2020 * Family History:?Mother: dece ased, diagnosed with Other malignant neoplasm of unspecified site.?Father: , diagnosed with Other malignant neoplasm of unspecified site.?Siblings: cancer, kidney/liver disease.? * Social History:?Tobacco Use:?Tobacco Use/Smoking?Are you a:?nonsmoker ?Additional Findings: Tobacco Non-User?Current non-smoker ?Tobacco use other than smoking?Are you an other tobacco user??No ???Drugs/Alcohol:?Drugs?Have you used drugs other than those for medical reasons in the past 12 months??No ?Alcohol Screen?Did you have a drink containing alcohol in the past year??Yes ?How often did you have a drink containing alcohol in the past year??Monthly or less (1 point) ?Points?1 ?Interpretation?Negative ???Miscellaneous:?Caffeine: no, none. ?Children: no. ?Exercise: yes, golf, cardio at gym, isometric workouts 6 days a week. ?Marital status: single. ?Occupation: retired [employer]. * Medications:?TakingAspirin 8 1 MG Tablet Delayed Release 1 tablet Orally Once a day Fish Oil 1200 MG Capsule 1 capsule Orally Once a day Furosemide Multivitamin Metoprolol Succinate ER 25 MG Tablet Extended Release 24 Hour 1 tablet Orally Once a day Simvastatin 40 MG Tablet 1 tablet in the evening Orally Once a day Warfarin Sodium 5 MG Tablet 1 tablet Orally Two times a Week Ammonium Lactate 12 % Cream 1 application to affected area Externally Twice a day to dry areas of skin on feet Taking Aspirin 81 MG Tablet Delayed Release 1 tablet Orally Once a day Taking Fish Oil 1200 MG Capsule 1 capsule Orally Once a day Taking Furosemide Taking Multivitamin Taking Metoprolol Succinate ER 25 MG Tablet Extended Release 24 Hour 1 tablet Orally Once a day Taking Simvastatin 40 MG Tablet 1 tablet in the evening Orally Once a day Taking Warfarin Sodium 5 MG Tablet 1 tablet Orally Two times a Week Taking Ammonium Lactate 12 % Cream 1 application to affected area Externally Twice a day to dry areas of skin on feet Not-Taking/PRNGym Note . . . . Medical from gym; he has been disabled from 07/27/15 thru 09/16/15 Lisinopril 10 MG Tablet 1 tablet Orally Once a day Ibuprofen 800 MG Tablet 1 tablet every Orally Three times a day Cipro 500 MG Tablet 1 tablet Orally Twice a day Ibuprofen 800 MG Tablet 1 tablet every Orally Three times a day Medication List reviewed and reconciled with the patientNot-Taking/PRN Gym Note . . . . Medical from gym; he has been disabled from 07/27/15 thru 09/16/15 Not- Taking/PRN Lisinopril 10 MG Tablet 1 tablet Orally Once a day Not-Taking/PRN Ibuprofen 800 MG Tablet 1 tablet every Orally Three times a day Not-Taking/PRN Cipro 500 MG Tablet 1 tablet Orally Twice a day Not-Taking/PRN Ibuprofen 800 MG Tablet 1 tablet every Orally Three times a day Medication List reviewed and reconciled with the patient * Allergies:?Plavix: rashyes[A llergies Verified] Objective: * Vitals:?Ht: 6 ft 3 in, Wt: 2 15, BMI: 26.87, Shoe size: 13, BP: 116/80 mm Hg, Wt- k.52 kg. * Examination: ???Nails: ?NAILS are:?Elongated, overgrown, dystrophic, lytic, greater than 3mm thick, discolored and friable with crumbly malodorous subungual debris, with pain on palpation, TA, T1, T2, T3, T5, T6, T7, T8.?Vascular: ?DP PULSES(B):? 0/4, B/L.?PT PULSES(B):? 0/4, B/L.?CAPILLARY FILL TIME:?delayed, all digits, B/L.?TROPHIC CONDITION-TEXTURE/ELASTICITY/TURGOR/HAIR GROWTH(B):?fragile, thin, shiny skin, with sparse to absent hair growth.?TEMPERTURE GRADIENT(C):?decreased, cool to cool, proximal to distal, [...] exam reveals Keratotic lesion(s) located at, Plantar/posterior B/L heels , TA , T5 , SUB MTH (s) , 1 , B/L; dry stable eschar dorsal T1, 3 x 3 mm without drainage or signs of infection.?General Examination: ?GENERAL APPEARANCE:?Reveals a pleasant, alert, well nourished, well developed, well hydrated individual, who demonstrates proper attention to hygene/body habitus, and is in no acute distress.?ORIENTED:?person, place, and time.? Assessment: * Assessment: 1.?Tinea unguium - B35.1???2 .?Pain in right toe(s) - M79.674???3.?Unspecified atherosclerosis of [place] arteries of extremities, bilateral legs - I70.203 (Primary)???4.?Pain in left toe(s) - M79.675???5.?Other hammer toe(s) (acquired), left foot - M20.42???6.?Other hammer toe(s) (acquired), right foot - M20.41???7.?Venous insufficiency - I87.2???8.?Ischemic ulcer of left foot, limited to breakdown of skin - L97.521??? Plan: * Treatment: * Procedures:?Debride Nail 6-10:?Nail debridement?Due to the clinical pathology outlined in the exam findings, performance of this nail treatment is medically necessary as its management by an unskilled/untrained nonprofessional would put this patients foot and overall health at risk. Therefore, debridement to affected nail(s), as described in exam (?TA, T1, T2, T3, T5, T6, T7, T8), was performed exclusively by the physician of record to reduce/remove overall nail length, girth, thickness, subungual debris, and necrotic tissue, by manual and/or electrical means through the use of a nail nipper and/or dremel-type facing grinder, to a more viable healthy nail plate or bed tissue 6-10 nails in total. Silver nitrate was used for any petechial bleeding as necessary. Definitive antifungal treatment options, both pharmaceutical and surgical, have been reviewed and discussed with the patient. The patient solely prefers the use of intermittent/as needed professional debridement services for their nail condition and understands the need for additional periodic treatments to maintain effectiveness in symptomatic relief - 40474.?Keratoma Treatment:?Parring or Cutting of Benign Hyperkeratotic Lesion(s)?(-57) More than 4 Lesions - Due to the at risk nature of the patients medical condition as documented in the exam findings, performance of this keratoderma treatment is medically necessary as its management by an unskilled/untrained nonprofessional would put this patients foot and overall health at risk. Therefore, the benign hyperkeratotic lesions, ( 6) in total, locations as stated and described in the exam (?Plantar/posterior B/L?heels?,?TA?,?T5?,?SUB MTH (s)?,?1?,?B/L), were pared, and/or cut utilizing a sterile 15 blade, tissue nippers, and/or power dremel instrumentation by the physician of record - 10214.? * Procedure Codes:?25497 DEBRI DE NAIL, 6 OR MORE, Modifiers: XS 15429 TRIM SKIN LESIONS, OVER 4, Modifiers: XS , Q8 * Preventive Medicine:?Eschar stable left 2nd toe, pt to monitor for any signs of infection. * Follow Up:?3 Months * Images: * Sign off status: Completed true * Provider:?Anuradha Hermosillo, DPM Date:? Generated for Jaelyn de la cruz/Armond/Myron on:?08/25/2024 10:10 AM EST History and Physical Notes * HPI (History of Present Illness) Category Sub-Category Detail Notes Category Not es At Risk footcare Pt States Last PCP Visit: Date: 4 Examination Category Sub-Category Detail Notes Category Not es Neurological SENSORY: Neurological exa m reveals intact sensorium, pain sensation normal, vibration sensation intact, pinprick sensation is normal in the lower extremities, Pt denies, anesthesia, burning, paresthesia, tingling, B/L Dermatologic SKIN FINDINGS: Skin exam reveal s Keratotic lesion(s) located at, Plantar/posterior B/L heels , TA , T5 , SUB MTH (s) , 1 , B/L; dry stable eschar dorsal T1, 3 x 3 mm without drainage or signs of infection Orthopedic DIGITAL DEFORMITIES: Amputation t4, T9, Digital [...] cool to cool, proximal to distal, B/L TROPHIC CONDITION-TEXTURE/ELASTICITY/TURGOR/HAIR GROWTH(B): fragile, thin, shiny skin, with sparse t o absent hair growth PIGMENTATION: rubrous , Right Nails NAILS are: Elongated, overg rown, dystrophic, lytic, greater than 3mm thick, discolored and friable with crumbly malodorous subungual debris, with pain on palpation, TA, T1, T2, T3, T5, T6, T7, T8
--- OUTSIDE RECORDS SUMMARY | 2024-08-25 10:11 | XMS_ITS ---
Author Organization [facility] Address [address] [place] [address] Care Team Providers Care Network Communications Engineer Name Role Phone Kirk Randle MD Primary Care Provider UnavailAnuradha Camp Unavailable [phone] Allergies Allergen (clinical drug ingredient) Drug/Non Drug Allergy documented on EMR Reaction Allergy Type Onset Date Status clopidogrel Plavix rash Drug Allergy Activ e REASON FOR VISIT Painful Nail(s) aggrevated by shoes and causing difficulty standing/walking. Medications Medication SIG (Take, Route, Frequency, Duration) Notes Start Date End Date Status Warfarin Sodium 5 MG 1 tablet Orally Two times a Week for 30 day(s) Active Simvastatin 40 MG 1 tablet in the even ing Orally Once a day for 30 day(s) Active Metoprolol Succinate ER 25 MG 1 tablet Orally Once a day for 30 day(s) Active Gym Note . . . Medical from gym ; he has been disabled from 07/27/15 thru 09/16/15 09/14/2015 Not-Taking Ammonium Lactate 12 % 1 application to affected area Externally Twice a day to dry areas of skin on feet for 30 days Active Furosemide Active Ibuprofen 800 MG 1 tablet every Orall y Three times a day for 14 days 07/04/2015 Not-Taking Multivitamin Active Fish Oil 1200 MG 1 capsule Orally Onc e a day for 30 day(s) Active Aspirin 81 MG 1 tablet Orally Once a day for 30 day(s) Active Ibuprofen 800 MG 1 tablet every Orall y Three times a day for 14 days Not-Taking Lisinopril 10 MG 1 tablet Orally Once a day for 30 day(s) Not-Taking Cipro 500 MG 1 tablet Orally Twic e a day for 10 day(s) 08/24/2015 Not-Taking Social History Tobacco Use: Social History Observation [...] Signs Height 6 ft 3 in in 02/18/2024 Weight 215 lbs 02/18/2024 BMI 26.87 kg/m2 02/18/2024 Blood pressure systolic 116 mm Hg 02/18/20 24 Blood pressure diastolic 72 mm Hg 024 Encounters Encounter Location Date Provider Diagnosis [facility] [address] [address] 02/18/2024 Anuradha Perica Pain in right toe(s) M79.674 ; Tinea unguium B35.1 ; Pain in left toe(s) M79.675 ; Unspecified atherosclerosis of [place] arteries of extremities, bilateral legs I70.203 ; Other hammer toe(s) (acquired), left foot M20.42 ; Other hammer toe(s) (acquired), right foot M20.41 and Venous insufficiency I87.2 Assessments Encounter Date Diagnosis (ICD Code) Assessment Notes Treatment Notes Treatment Clinical Notes Section Notes 02/18/2024 Pain in right toe(s) (ICD-10 - M79.674) 02/18/2024 Tinea unguium (ICD-10 - B35.1) 02/18/2024 Pain in left toe(s) (ICD-10 - M79.675) 02/18/2024 Unspecified atherosclerosis of [place] arteries of extremities, bilateral legs (ICD-10 - I70.203) 02/18/2024 Other hammer toe(s) (acquired), left foot (ICD-10 - M20.42) 02/18/2024 Other hammer toe(s) (acquired), right foot (ICD-10 - M20.41) 02/18/2024 Venous insufficiency (ICD-10 - I87.2) Plan Of Treatment Next Appt Details Follow Up: 3 Months, Reason: Provider Name:Anuradha amado, 11/20/2024 11:15:00 AM, [address] [place], [address], Procedure Notes * Category Sub-Category Detail Notes [...] as necessary. Patient chooses, no pharmaceutical tx (71776) Keratoma Treatment Parring or Cutting o f Benign Hyperkeratotic Lesion(s) 75130 ( More than 4 Lesions ) - The Benign hyperkeratotic lesions, as described above were pared, and/or cut utilizing a sterile 15 blade, tissue nippers, and/or dremel , Q8 Progress Notes * Vladimir FLYNNDOB:1940 (84 yo M)Acc No.[id number]:02/18/2024 Progress Note Patient:?FlynnVladimir cummings Provider:?Anuradha Hermosillo DPM :1940???Age:84 Y???Sex:Male Deshaun e:02/18/2024 Address:[address] [place] [address], [facility] Pcp:Kirk Randle MD Subjective: * Chief Complaints: * ???Painful Nail(s) aggrevate d by shoes and causing difficulty standing/walking. * HPI: ???Painful Nails:?Pt States Last PCP Visit:?Date:?01/08/2024 ???Skin problems:?Nature:?Ulcer.?Location:?Right , Ankle--inside.?Duration:?several months.?Onset/Cause:?vascular disease.?Course:?improved.?Treatments:?VNA and treatment by Vascular and PCP.? * ROS:?General/Constitutional:?Nausea?denies.?Vomiting?denies.?Hunger Thirst?denies.?Loss appetite?denies.?Chills?denies.?Fatigue?denies.?Fever?denies.?Night Sweats?denies.?Unexplained weight loss?denies.?Ophthalmologic:?Blurred vision?denies.?Red eye?denies.?HEENTM:?Dentures?denies.?Dizziness?denies.?Glasses/contacts?admits.?Retinopathy?de nies.?Blurred/double vision?denies.?TMJ?denies.?Discharge/drainage?denies.?Implants?denies.?Hard of hearing denies.?Difficulty chewing/swallowing/speaking?denies.?Nose bleeds?denies.?Sore mouth?denies.?Swollen glands?denies.?Respiratory:?On Oxygen?denies.?Pneumonia/pleurisy?denies.?Bronchitis?denies.?Emphysema?denies.?C oughing?denies.?Cough blood?denies.?Shortness of breath?denies.?Wheezing?denies.?Cardiovascular:?Pacemaker?denies.?MVP?denies.?WPW?denies.?CHF?denies.?Heart attack?admits.?Septal defect?denies.?Rapid beat?denies.?Chest pain ?denies.?Atrial Fib.?admits.?Murmur/Palpitations?denies.?Gastrointestinal:?Hemorrhoids?denies.?Stomach/Abdominal pain?denies.?Dark blood stool?denies.?Irritable bowel ?denies.?Constipation?denies.?Diarrhea?denies.?Vomiting?denies.?Hematology:?Swelling?admits.?Bruising?denies.?Bleeding problem?denies.?Genitourinary:?Blood urine?denies.?Frequent/Painfu/urination/bladder control?denies.?Kidney stones?denies.?Infection (UTI)?denies.?Nephropathy?denies.?Musculoskeletal:?Hammertoes?admits.?Bunions?denies.?Scoliosis/kyphosis?denies.?Muscle cramps / walking?denies.?Generalized aches and pains?denies.?Weakness?denies.?Integ.:?Santamaria?denies.?Scars?denies.?Corns/calluses?denies.?Ingrown nails?denies.?Painful nails?admits.?Rashes?denies.?Neurologic:?Difficulty sleeping?denies.?Bipolar?denies.?Brain disorder?denies.?Balance trouble?denies.?Confusion?denies.?Fainting/blackouts?denies.?Headache?denies.?Tr emors?denies.? * Medical History:? * Surgical History:?cataract s urgery-right eye new lens 2007stents-blocked artery 02/09/2004HT/ulcer left 07/28/2015Right Total Knee Replacement 10/06/2018Left amputation, toe 08/16/2022ick-line iv antiboitics 06/2022 * Hospitalization/Major Diagno stic Procedure:?[facility] pt passed out for two seconds, lab work was done everything came out fine. 04/2016[facility] left eye cataract surgery 01/22/2017[facility]- fell on face- test done viral infection [...] year??Monthly or less (1 point) ?Points?1 ?Interpretation?Negative ???Miscellaneous:?no Caffeine, none. ?no Children. ?Exercise: yes, golf, cardio at gym, isometric workouts 6 days a week. ?Marital status: single. ?Occupation: retired [employer]. * Medications:?TakingAspirin 8 1 MG Tablet Delayed [...] 15, BMI: 26.87, Shoe size: 13, BP: 116/72 mm Hg, Wt- k.52 kg. * Examination: ???Nails: ?NAILS are:? Elongated, overgrown, dystrophic, lytic, greater than 3mm thick, discolored and friable with crumbly malodorous subungual debris, with dull to no pain on palpation due to neuropathy, 1-4?B/L.?Vascular: ?DP PULSES:? 0/4, B/L.?PT PULSES:? 0/4, B/L.?CAPILLARY FILL TIME:?delayed, all digits, B/L.?SKIN TEMPERTURE GRADIENT OF THE LOWER EXTERMITIES:?decreased, cool to cool, proximal to distal, B/L.?Neurological: ?SENSORY:?Neurological exam reveals intact sensorium, pain sensation [...] distress.?ORIENTED:?person, place, and time.? Assessment: * Assessment: 1.?Pain in right toe(s) - M7 9.674?2.?Tinea unguium - B35.1 (Primary)?3.?Pain in left toe(s) - M79.675?4.?Unspecified atherosclerosis of [place] arteries of extremities, bilateral legs - I70.203?5.?Other hammer toe(s) (acquired), left foot - M20.42?6. [...] as necessary. Patient chooses, no pharmaceutical tx (76466).?Keratoma Treatment:?Parring or Cutting of Benign Hyperkeratotic Lesion(s)?99834 ( More than 4 Lesions ) - The Benign hyperkeratotic lesions, as described above were pared, and/or cut utilizing a sterile 15 blade, tissue nippers, and/or dremel , Q8.? * Procedure Codes:?02342 DEBRI DE NAIL, 6 OR MORE, Modifiers: XS 96086 TRIM SKIN LESIONS, OVER 4, Modifiers: XS , Q8 * Preventive Medicine:? ??Counseling:?Discussion:?-13: Office or other outpatient visit for the evaluation and management of an established patient, which required a medically appropriate history and/or examination and LOW level of DECISION MAKING for: 1 STABLE ACUTE UNCOMPLICATED PROBLEM, 2 OR MORE MINOR PROBLEMS, OR 1 STABLE CHRONIC PROBLEM, THAT POSE(S) A LOW RISK FOR MORBIDITY/MORTALITY. The visit on the day of the encounter encompassed interpreting the data and educating the patient as to the nature of their condition, treatment options available according to their individual PMH, meds, allergies, and overall health/living conditions, as well as any potential risks or complications that may occur from a failure to adhere to, and participate in, the recommended course of therapy. The discussion included a complete verbal, and/or written explanation of the examination results, any x-rays taken, the proposed diagnosis, and outline of the treatment plan. A schedule for future care needs was also explained. The patient verbalized an understanding of the instructions at this time and agreed to be an active participant in their treatment. If the patient should think of any questions or concerns after the visit, I have encouraged the patient to call the office-pt to call to be seen at [facility] to evaluate and treat the right ankle condition due to venous insufficiency.?BioMech.:?I discussed the Pts foot biomechanics with them and how it relates to their problem.? * Follow Up:?3 Months * Images: * Sign off status: Completed true * Provider:?Anuradha Hermosillo DPM Date:?07/2024 Generated for Jaelyn de la cruz/Armond/Myron on:?08/25/2024 10:11 AM EST History and Physical Notes * HPI (History of Present Illness) Category Sub-Category Detail Notes Category Not es Painful Nails Pt States Last PCP Visit: Date:: 01/08/2024 Skin problems Nature: Ulcer Location: Right , Ankle--insid e Duration: several months Onset/Cause: vascular disease Course: improved Treatments: VNA and treatment by Vascular and PCP Examination Category Sub-Category Detail Notes Category Not [...] cool to cool, proximal to distal, B/L Nails NAILS are: Elongated, overg rown, dystrophic, lytic, greater than 3mm thick, discolored and friable with crumbly malodorous subungual debris, with dull to no pain on palpation due to neuropathy, 1-4 B/L
--- OUTSIDE RECORDS SUMMARY | 2024-08-25 10:11 | XMS_ITS | Patient Health Record ---
Author Organization [facility] [place] Address [address] [place] [address] Care Team Providers Care Accounts Specialist Name Role Phone Kirk Randle MD Primary Care Provider Unavailab Anuradha Hobbs Unavailable [phone] Suleiman Ni Unavailable [phone] Allergies Allergen (clinical drug ingredient) Drug/Non Drug Allergy documented on EMR Reaction Allergy Type Onset Date Status clopidogrel Plavix rash Drug Allergy Activ e Reason For Referral Diagnosis 1 Tinea unguium (B35.1 ) Diagnosis 2 Other hammer toe(s) (acquired), left foot (M20.42) Diagnosis 3 Unspecified atherosc lerosis of [place] arteries of extremities, bilateral legs (I70.203) Diagnosis 4 Other hammer toe(s) (acquired), right foot (M20.41) Diagnosis 5 Non-pressure chronic ulcer of other part of right foot with fat layer exposed (L97.512) Diagnosis 6 Venous insufficiency (I87.2) Diagnosis 7 Pressure injury of r ight ankle, stage 1 (L89.511) Referring Provider First Name Kirk Referring Provider Last Name Jer Referred Liz [facility] [place] Referred Provider Anuradha Hermosillo Referred Address [address] [facility],[place],[address], Referred Provider Specialty Podiatry Referral Priority Routine Medications Medication SIG (Take, Route, Frequency, Duration) Notes Start Date End Date Status Fish Oil 1200 MG 1 capsule Orally Onc e a day for 30 day(s) Active Ibuprofen 800 MG 1 tablet every Orall y Three times a day for 14 days 07/04/2015 Not-Taking Furosemide Active Ibuprofen 800 MG 1 tablet every Orall y Three times a day for 14 days Not-Taking Aspirin 81 MG 1 tablet Orally Once a day for 30 day(s) Active Cipro 500 MG 1 tablet Orally Twic e a day for 10 day(s) 08/24/2015 Not-Taking Simvastatin 40 MG 1 tablet in the even ing Orally Once a day for 30 day(s) Active Warfarin Sodium 5 MG 1 tablet Orally Two times a Week for 30 day(s) Active Multivitamin Active Metoprolol Succinate ER 25 MG 1 tablet Orally Once a day for 30 day(s) Active Lisinopril 10 MG 1 tablet Orally Once a day for 30 day(s) Not-Taking Ammonium Lactate 12 % 1 application to affected area Externally Twice a day to dry areas of skin on feet for 30 days Active Gym Note . . . Medical from gym ; he has been disabled from 07/27/15 thru 09/16/15 09/14/2015 Not-Taking Immunizations Vaccine Route Administration Date Status Comme nts COVID-19 Moderna Vaccine Unknown 06/30/2022 Administered 1st 10/11/2020,11/08/202020,2021 Influenza Unknown 06/30/2022 Administered Social History Tobacco Use: Social History Observation [...] Problem Status W/U Status Risk Notes Problem Tinea unguium (191460576) Tinea unguium (B35.1) Active confirmed Problem Non-pressure chronic ulcer of other part of right foot with fat layer exposed (L97.512) Active confirmed Problem 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, bilateral legs (I70.203) Active confirmed Problem Acquired hammer toe of right foot (5436464974544573 ) Other hammer toe(s) (acquired), right foot (M20.41) Active confirmed Problem Acquired hammer toe of left foot (4696426427621826 ) Other hammer toe(s) (acquired), left foot (M20.42) Active confirmed Problem 15706629 Venous insufficiency (I87.2) Active confirmed Problem 49727889875512 Pressure injury of right ankle, stage 1 (L89.511) Active confirmed Problem 458603243 Ischemic ulcer o f left foot, limited to breakdown of skin (L97.521) Active confirmed Vital Signs Blood pressure diastolic 80 mm Hg 08/21/2024 Height 6 ft 3 in in 08/21/2024 Blood pressure systolic 116 mm Hg 08/21/2024 Weight 215 lbs 08/21/2024 BMI 26.87 kg/m2 08/21/2024 Encounters Encounter Location Date Provider Diagnosis [address] [address] 11/15/2023 Anuradha Perica Pain in right toe(s) M79.674 ; Tinea unguium B35.1 ; Pain in left toe(s) M79.675 ; 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, bilateral legs I70.203 ; Other hammer toe(s) (acquired), left foot M20.42 ; Other hammer toe(s) (acquired), right foot M20.41 and Venous insufficiency I87.[address] [address] 02/18/2024 Anuradha Perica Pain in right toe(s) M79.674 ; Tinea unguium B35.1 ; Pain in left toe(s) M79.675 ; 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, bilateral legs I70.203 ; Other hammer toe(s) (acquired), left foot M20.42 ; Other hammer toe(s) (acquired), right foot M20.41 and Venous insufficiency I87.[address] [address] 05/22/2024 Anuradha Perica Tinea unguium B35.1 ; 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, bilateral legs I70.203 ; Pain in right toe(s) M79.674 ; Pain in left toe(s) M79.675 ; Other hammer toe(s) (acquired), left foot M20.42 ; Other hammer toe(s) (acquired), right foot M20.41 and Venous insufficiency I87.[address] [address] 08/21/2024 Anuradha Hermosillo Tinea unguium B35.1 ; 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, bilateral legs I70.203 ; Pain in right toe(s) M79.674 ; Pain in left toe(s) M79.675 ; Other hammer toe(s) (acquired), left foot M20.42 ; Other hammer toe(s) (acquired), right foot M20.41 ; Venous insufficiency I87.2 and Ischemic ulcer of left foot, limited to breakdown of skin L97.521 [facility] [address] [address] 09/16/[address] [address] 10/18/2023 Anuradha Hermosillo Assessments Encounter Date Diagnosis (ICD Code) Assessment Notes Treatment Notes Treatment Clinical Notes Section Notes 11/15/2023 Pain in right toe(s) (ICD-10 - M79.674) 02/18/2024 Pain in right toe(s) (ICD-10 - M79.674) 05/22/2024 Tinea unguium (ICD-10 - B35.1) 05/22/2024 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, bilateral legs (ICD-10 - I70.203) 08/21/2024 Tinea unguium (ICD-10 - B35.1) 08/21/2024 Pain in right toe(s) (ICD-10 - M79.674) 05/22/2024 Pain in right toe(s) (ICD-10 - M79.674) 11/15/2023 Pain in left toe(s) (ICD-10 - M79.675) 11/15/2023 Tinea unguium (ICD-10 - B35.1) 08/21/2024 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, bilateral legs (ICD-10 - I70.203) 02/18/2024 Tinea unguium (ICD-10 - B35.1) 11/15/2023 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, bilateral legs (ICD-10 - I70.203) 05/22/2024 Pain in left toe(s) (ICD-10 - M79.675) 08/21/2024 Pain in left toe(s) (ICD-10 - M79.675) 02/18/2024 Pain in left toe(s) (ICD-10 - M79.675) 02/18/2024 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, bilateral legs (ICD-10 - I70.203) 11/15/2023 Other hammer toe(s) (acquired), left foot (ICD-10 - M20.42) 05/22/2024 Other hammer toe(s) (acquired), left foot (ICD-10 - M20.42) 08/21/2024 Other hammer toe(s) (acquired), left foot (ICD-10 - M20.42) 08/21/2024 Other hammer toe(s) (acquired), right foot (ICD-10 - M20.41) 11/15/2023 Other hammer toe(s) (acquired), right foot (ICD-10 - M20.41) 05/22/2024 Other hammer toe(s) (acquired), right foot (ICD-10 - M20.41) 02/18/2024 Other hammer toe(s) (acquired), left foot (ICD-10 - M20.42) 11/15/2023 Venous insufficiency (ICD-10 - I87.2) 02/18/2024 Other hammer toe(s) (acquired), right foot (ICD-10 - M20.41) 05/22/2024 Venous insufficiency (ICD-10 - I87.2) 08/21/2024 Venous insufficiency (ICD-10 - I87.2) 08/21/2024 Ischemic ulcer of left foot, limited to breakdown of skin (ICD-10 - L97.521) 02/18/2024 Venous insufficiency (ICD-10 - I87.2) Plan Of Treatment Pending Test Test Name Order Date X ray : Foot, left 2V 01/27/2015 X ray : Foot, left 2V 07/04/2015 X ray : Foot, left 2V 08/01/2015 X ray : Foot, left 2V 08/11/2015 X ray : Foot, left 2V 08/24/2015 X ray : Foot, left 2V 09/14/2015 15945-SENTZPT NAIL, 6 OR MORE 11/16/2015 65583-NDMXSCK NAIL, 6 OR MORE 05/16/2016 05202-VHBFLWZ NAIL, 6 OR MORE 08/23/2016 82923-ZYCNLBM NAIL, 6 OR MORE 12/05/2016 93986-IQVPCUI NAIL, 6 OR MORE 03/06/2017 30175-GPFMVUO NAIL, 6 OR MORE 07/03/2017 72164-ZBLOFYZ NAIL, 6 OR MORE 03/10/2015 03130-XCVSTKX NAIL, 6 OR MORE 06/13/2015 18445-BTRTNKH NAIL, 6 OR MORE 10/01/2013 13315-KUFSODD NAIL, 6 OR MORE 01/13/2015 80327-PWDBOUS NAIL, 6 OR MORE 06/30/2018 96225-MXJIKTI NAIL, 6 OR MORE 11/04/2017 94683-PERVMMK NAIL, 6 OR MORE 03/05/2018 84909-Ftbl Destruction, 1-14 01/27/2015 55646-Gcwj Destruction, 1-14 01/13/2015 84794-Oqrs Destruction, 1-14 03/10/2015 96163-Uuev Destruction, 1-14 06/13/2015 30148-Phwmtjml Plate 06/13/2015 86212-Iuumltld Plate 03/10/2015 61770-Ektdsifu Plate 06/30/2018 87341- Debride <25 sq cm 03/10/2015 73418- Debride <25 sq cm 01/27/2015 04460- Debride <25 sq cm 08/24/2015 42186- Debride <25 sq cm 09/05/2015 32001- Debride <25 sq cm 09/14/2015 86667-UVOPTLS SKIN/TISSUE 01/13/2015 63573-SRKLDRG SKIN/TISSUE 07/20/2015 33143-CWWVUFE SKIN/TISSUE 06/27/2015 09707-SVTPRBD SKIN/TISSUE 07/04/2015 07851-POMELOE SKIN/TISSUE 10/17/2022 70608-RPWH SKIN LESIONS, OVER 4 11/15/19 21 06077-VCAQ SKIN LESIONS, OVER 4 03/16/20 21 53363-VWWF SKIN LESIONS, OVER 4 10/17/19 23 47318-WFSL SKIN LESIONS, 2 TO 4 06/30/20 18 02024-CSON SKIN LESIONS, 2 TO 4 03/05/20 18 67299-YZBQ SKIN LESIONS, 2 TO 4 11/25/19 19 85881-OBAO SKIN LESIONS, 2 TO 4 03/30/20 19 01530-BUEK SKIN LESIONS, 2 TO 4 07/20/20 19 31500-OJSV SKIN LESIONS, 2 TO 4 11/18/19 20 46998-QCTR SKIN LESIONS, 2 TO 4 03/21/20 20 11694-PDFU SKIN LESIONS, 2 TO 4 07/20/20 20 35019-AARH SKIN LESIONS, 2 TO 4 02/28/20 23 23787-TWUJ SKIN LESIONS, 2 TO 4 05/16/20 16 32446-IZDH SKIN LESIONS, 2 TO 4 11/16/19 16 92663-YLLS SKIN LESIONS, 2 TO 4 11/04/19 18 16796-JROU SKIN LESIONS, 2 TO 4 07/03/20 17 90896-YYDW SKIN LESIONS, 2 TO 4 12/06/19 17 24021-YQXJ SKIN LESIONS, 2 TO 4 03/06/20 17 57306-JYRF SKIN LESIONS, 2 TO 4 08/23/20 16 17609-SCMLFRMS OF HEMATOMA/FLUID 023 Next Appt Details Provider Name:Anuradha amado, 11/20/2024 11:15:00 AM, [address] [facility], [place], [address], Insurance Providers Payer Name Payer Address Payer Phone Subscriber Number Group Number Insured Name Patient Relationship to Insured Coverage Start Date Coverage End Date [employer] Preferred [address] [place] [address] [id number] Vladimir Flynn Self - patient is the insured 3 Medical (General) History Medical History History ICD Code Arthritis Back,Hip,and Knee pain Cataracts Heart disease Chicken pox Surgical History Surgery Date(Month/Year) cataract surgery-right eye new lens 2007 stents-blocked artery 02/09/2004 HT/ulcer left 07/28/2015 Right Total Knee Replacement 10/06/2018 Left amputation, toe 08/16/2022 Pick-line iv antiboitics 06/2022 Hospitalization History Reason Date(Month/Year) [facility]- fell on face- test done viral infection affected heart 1 month Rehab few weeks 2020 Surgical center left eye cataract surger y 01/22/2017 [facility] pt passed out for two seconds, lab work was done everything came out fine. 04/2016
[2024-08-25 10:23] LABS: Prothrombin Time Whole Bld POC 31.9 sec (11.1-13.5); ~PT, ~INR - Anti Coag Clinic 2.7 (0.9-1.1)
--- NOTE | 2024-08-25 10:27 | MHC.OFFVISCO ---
Intake Intake Visit Reasons: Anticoagulation Allergies clopidogrel [From PLAVIX] Allergy (Unknown, Verified 08/25/24 10:17) RASH Medication List - Last Reconciled 08/25/24 by Carolina Diaz, GUSTAVO acetaminophen ER 650 mg PO Q12H PRN ascorbic acid (vitamin C) 500 mg PO DAILY atorvastatin 20 mg PO DAILY B-complex with vitamin C 1 tab PO DAILY calcium carb-mag ox-zinc sulf 1 tab PO DAILY coenzyme Q10 10 mg PO TID ferrous sulfate 325 mg PO DAILY furosemide 20 mg PO DAILY metoprolol succinate ER 25 mg PO DAILY omega 8-iok-bfz-fish oil 1,000 (120-180) mg (Fish Oil) 1 cap PO DAILY saw palmetto 500 mg PO BID silver sulfadiazine 1% appl topical vitamin E 400 units PO DAILY warfarin (Jantoven) 2.5 tabs See Protocol PO YELITZA@0900 Nursing Note INR: 2.7 in therapeutic range of 2-3 Medications and supplements reviewed No changes in health, diet, medications, or supplements, Denies any signs and symptoms of bleeding or bruising or clotting. Bleeding, bruising, clotting discussed Nutritional guidance given Dose: 2.5mg daily F/U INR: 3 weeks Patient verbalizes understanding of instructions given Anti-Coag Initial Assessment Social Hx Patient Tobacco Use Status: Never used Tobacco alcohol intake: unknown Coding Level of Care Code Est Patient Level 1 Diagnoses Current use of anticoagulant therapy Z79.01 Assessment & Plan Assessment & Plan (1) Current use of anticoagulant therapy: Code(s): Z79.01 - assisted (current) use of anticoagulants Category: Medical
== END 2024-08-25 10:28 | disposition home or self-care (01) ==
LOC: HO.ACS 10:07
PROVIDERS: PCP Internal Medicine; Visit Provider Internal Medicine
DX: Z79.01 Long term (current) use of anticoagulants (principal)

== ENCOUNTER → 2024-08-25 10:07 | Outpatient (BNVA) | payer MEDICARE, SELFPAY | PROVIDERS: PCP Internal Medicine; Visit Provider Internal Medicine | DX: I48.91 Unspecified atrial fibrillation (principal); Z79.01 Long term (current) use of anticoagulants; Z51.81 Encounter for therapeutic drug level monitoring | CPT/HCPCS: 85610; 99211 ==

== ENCOUNTER 2024-09-15 10:31 | Outpatient (AMB) | payer MEDICARE, SELFPAY ==
[2024-09-15 10:39] LABS: Prothrombin Time Whole Bld POC 32.9 sec (11.1-13.5); ~PT, ~INR - Anti Coag Clinic 2.7 (0.9-1.1)
--- NOTE | 2024-09-15 10:41 | MHC.OFFVISCO ---
Intake Intake Visit Reasons: Anticoagulation Allergies clopidogrel [From PLAVIX] Allergy (Unknown, Verified 09/15/24 10:33) RASH Medication List - Last Reconciled 09/15/24 by Carolina Villafuerte RN acetaminophen ER 650 mg PO Q12H PRN ascorbic acid (vitamin C) 500 mg PO DAILY atorvastatin 20 mg PO DAILY B-complex with vitamin C 1 tab PO DAILY calcium carb-mag ox-zinc sulf 1 tab PO DAILY coenzyme Q10 10 mg PO TID ferrous sulfate 325 mg PO DAILY furosemide 20 mg PO DAILY metoprolol succinate ER 25 mg PO DAILY omega 7-zzi-wfn-fish oil 1,000 (120-180) mg (Fish Oil) 1 cap PO DAILY saw palmetto 500 mg PO BID vitamin E 400 units PO DAILY warfarin (Jantoven) 2.5 tabs See Protocol PO JEANETTEHELENESAMUEL@0900 Nursing Note Amb to ACS using cane, feeling well Medications and supplements reviewed No changes in health, diet, medications, or supplements, Denies any unusual signs and symptoms of bleeding, bruising, or clotting. Bleeding, bruising, clotting discussed Dose: continue usual dosing 2.5mg daily balance greens and reds in diet, be consistent F/U INR: 4 weeks Patient verbalizes understanding of instructions given Anti-Coag Initial Assessment Social Hx Patient Tobacco Use Status: Never used Tobacco alcohol intake: unknown Coding Level of Care Code Est Patient Level 1 Diagnoses Current use of anticoagulant therapy Z79.01 Time Spent (min) 15 Assessment & Plan Assessment & Plan (1) Current use of anticoagulant therapy: Code(s): Z79.01 - detention (current) use of anticoagulants Category: Medical
== END 2024-09-15 10:48 | disposition home or self-care (01) ==
LOC: HO.ACS 10:31
PROVIDERS: PCP Internal Medicine; Visit Provider Internal Medicine
DX: Z79.01 Long term (current) use of anticoagulants (principal)

== ENCOUNTER → 2024-09-15 10:31 | Outpatient (BNVA) | payer MEDICARE, SELFPAY | PROVIDERS: PCP Internal Medicine; Visit Provider Internal Medicine | DX: I48.91 Unspecified atrial fibrillation (principal); Z79.01 Long term (current) use of anticoagulants; Z51.81 Encounter for therapeutic drug level monitoring | CPT/HCPCS: 85610; 99211 ==

== ENCOUNTER 2024-10-13 10:22 | Outpatient (AMB) | payer MEDICARE, SELFPAY ==
[2024-10-13 10:29] LABS: Prothrombin Time Whole Bld POC 38.4 sec (11.1-13.5); ~PT, ~INR - Anti Coag Clinic 3.2 (0.9-1.1)
--- NOTE | 2024-10-13 10:33 | MHC.OFFVISCO ---
Intake Intake Visit Reasons: Anticoagulation Allergies clopidogrel [From PLAVIX] Allergy (Unknown, Verified 10/13/24 10:24) RASH Medication List - Last Reconciled 10/13/24 by Carolina Diaz RN acetaminophen ER 650 mg PO Q12H PRN ascorbic acid (vitamin C) 500 mg PO DAILY atorvastatin 20 mg PO DAILY B-complex with vitamin C 1 tab PO DAILY calcium carb-mag ox-zinc sulf 1 tab PO DAILY coenzyme Q10 10 mg PO TID ferrous sulfate 325 mg PO DAILY furosemide 20 mg PO DAILY metoprolol succinate ER 25 mg PO DAILY omega 5-mnt-ppx-fish oil 1,000 (120-180) mg (Fish Oil) 1 cap PO DAILY saw palmetto 500 mg PO BID vitamin E 400 units PO DAILY warfarin (Jantoven) 2.5 tabs See Protocol PO MOTUWETHFRSA@0900 Nursing Note INR 3.2?out of therapeutic range of 2-3 Medications and supplements reviewed Patient status: feels well Medications or supplements: no changes Diet: usual diet per pt Denies any signs and symptoms of bleeding or clotting or unusual bruising Bleeding, bruising, clotting discussed Nutritional guidance given: to have a serving of greens today Dose: 2.5mg daily F/U INR Date : 4 weeks? Patient verbalizing understanding of instructions with read back given. 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
--- OUTSIDE RECORDS SUMMARY | 2024-10-13 11:08 | XMS_ITS | Encounter Summary ---
Author Organization [facility] Address [address] [place] [address] Care Team Providers Care Cotton Program Technician Name Role Phone Kirk Randle MD Primary Care Provider [phone] Ced Victoria MD Unavailable [phone] Virgie Trivedi NURSE CARE MANAGER Unavailable [phone] Kirk Randle MD Primary Care Provider [phone] Alana Celaya NURSE CARE MANAGER Unavailable [phone] Reason for Visit * Reason Onset Date Comments Provider Call Back 04/10/2021 Encounter Details Date Type Department Care Team Description 04/10/2021 Telephone Internal Medicine - [address], [address] [place] [address] Kirk Randle MD [address] [place] [address] Provider Call Back Social History Tobacco Use Types Packs/Day Years Used Date Smoking Tobacco: Never Smokeless Tobacco: Never Alcohol Use Standard Drinks/Week Comments No 0 (1 standard drink = 0.6 oz pur e alcohol) Physical Activity Answer Date Recorded On average, how many days pe r week do you engage in moderate to strenuous exercise (like walking fast, running, jogging, dancing, swimming, biking, or other activities that cause a light or heavy sweat)? 5 days 01/19/2021 On average, how many minutes do you engage in exercise at this level? 60 min 09/19/2020 Sex Assigned at Date Recorded Not on file Job Start Date Occupation Industry Not on file Not on file Not on file documented as of this encounter Miscellaneous Notes * Telephone Encounter - Kamla Matos - 04/10/2021 11:30 AM EDT Patient nephew Agustin Del Rio wants dr randle to call him regarding patient. But he's not on verbal release. If he call please let him know he would need to be added documented in this encounter Plan of Treatment Not on file documented as of this encounter Visit Diagnoses Not on filedocumented in this encounter Care Teams Cotton Program Technician Relationship Specialty Start Date End Date Kirk Randle MD PCP - General Internal Medicine 07/12/20 06/04/21 Kirk Randle MD PCP - General Internal Medicine 06/05/21 Ced Victoria MD [address] [place] [address] [address] [place] [address] Research Attorney Cardiovascular Disease 04/05/21 Virgie Trivedi NP [address] [place] [place] [address] [address] [place] [address] Nurse Practitioner Cardiology 04/05/21 Alana Celaya NP [address] [place] [address] [facility] [place] [address] Nurse Practitioner Cardiology 07/17/23 documented as of this encounter
--- OUTSIDE RECORDS SUMMARY | 2024-10-13 11:08 | XMS_ITS | Encounter Summary ---
Author Organization [facility] Address [address] [place] [address] Care Team Providers Care Field Representatives Director Name Role Phone Ced Victoria MD Unavailable [phone] Virgie Trivedi NP Unavailable [phone] Kirk Randle MD Primary Care Provider [phone] Alana Celaya NP Unavailable [phone] Encounter Details Date Type Department Care Team Description 07/09/2023 Hospital Medical Records [address] [place] [address] Raffy Gardner MD [address] [address] Social History Tobacco Use Types Packs/Day Years Used Date Smoking Tobacco: Never Passive Smoke Exposure: Never Smokeless Tobacco: Never Alcohol Use Standard Drinks/Week Comments No 0 (1 standard drink = 0.6 oz pur e alcohol) rarely Physical Activity Answer Date Recorded On average, [...] file Not on file Not on file COVID-19 Exposure Response Date Recorded In the last 10 days, have yo u been in contact with someone who was confirmed or suspected to have Coronavirus/COVID-19? No / Unsure 06/13/2023 9:51 AM EDT documented as of this encounter Plan of Treatment Not on file documented as of this encounter Visit Diagnoses Not on filedocumented in this encounter Care Teams Field Representatives Director Relationship Specialty Start Date End Date Kirk Randle MD [address] [place] [address] [address] [place] [address] PCP - General Internal Medicine 06/05/21 Ced Victoria MD [address] [place] [address] [address] [place] [address] Tripe Cooker Cardiovascular Disease 04/05/21 Virgie Trivedi NP [address] [place] [address] [address] [place] [address] Nurse Practitioner Cardiology 04/05/21 Alana Celaya NP [address] [place] [address] [facility] [place] [address] Nurse Practitioner Cardiology 07/17/23 documented as of this encounter
--- OUTSIDE RECORDS SUMMARY | 2024-10-13 11:08 | XMS_ITS | Encounter Summary ---
Author Organization [facility] Address [address] [place] [address] Care Team Providers Care Informatics Pharmacist Name Role Phone Kirk Randle MD Primary Care Provider [phone] Ced Victoria MD Unavailable [phone] Virgie Trivedi [employer] SUPERINTENDENT Unavailable [phone] Kirk Randle MD Primary Care Provider [phone] Alana Celaya [employer] SUPERINTENDENT Unavailable [phone] Reason for Visit * Reason Comments E-prescribe Rx Request Encounter Details Date Type Department Care Team Description 12/05/2020 [facility] Internal Medicine - [address], [address] [place] [address] Octavio Gross MD E-prescribe Rx Request Social History Tobacco Use Types Packs/Day Years [...] encounter Miscellaneous Notes * Telephone Encounter - Jaquelin Gaytan L.P.N. - 12/05/2020 11:04 AM EDT Pt goes to [facility] Jaquelin Gaytan L.P.N. CLIFF 09/19/2020 NEXT 01/19/2021 documented in this encounter Plan of Treatment Not on file documented as of this encounter Visit Diagnoses Not on filedocumented in this encounter Care Teams Informatics Pharmacist Relationship Specialty Start Date End Date Kirk Randle MD PCP - General Internal Medicine 07/12/20 06/04/21 Kirk Randle MD PCP - General Internal Medicine 06/05/21 Ced Victoria MD [address] [place] [address] [address] [place] [address] Medical Affairs Specialist Cardiovascular Disease 04/05/21 Virgie Trivedi NP [address] [place] [address] [address] [place] [address] Nurse Practitioner Cardiology 04/05/21 Alana Celaya NP [address] [place] [address] [facility] [place] [address] Nurse Practitioner Cardiology 07/17/23 documented as of this encounter
--- OUTSIDE RECORDS SUMMARY | 2024-10-13 11:08 | XMS_ITS | Encounter Summary ---
Author Organization [facility] Address [address] [place] [address] Care Team Providers Care Digital Photographer Name Role Phone Kathie Le PA-C Primary Care Provider + Kirk Randle MD Primary Care Provider [phone] Ced Victoria MD Unavailable [phone] Virgie Trivedi DIRECT SALES CONSULTANT Unavailable [phone] Kirk Randle MD Primary Care Provider [phone] Alana Celaya NP Unavailable [phone] Encounter Details Date Type Department Care Team Description 06/03/2020 Head Rose Grower Report Medical Records [address] [place] [address] Kathy Bolden PA-C Social History Tobacco Use Types Packs/Day Years [...] on file documented as of this encounter Plan of Treatment Not on file documented as of this encounter Visit Diagnoses Not on filedocumented in this encounter Care Teams Digital Photographer Relationship Specialty Start Date End Date Kathie Le PA-C PCP - General Internal Medicine 02/23/20 07/11/20 Kirk Randle MD PCP - General Internal Medicine 07/12/20 06/04/21 iKrk Randle MD PCP - General Internal Medicine 06/05/21 Ced Victoria MD [address] [place] [address] [address] [place] [address] Boilermaker Cardiovascular Disease 04/05/21 Virgie Trivedi NP [address] [place] [address] [address] [place] [address] Nurse Practitioner Cardiology 04/05/21 Alana Celaya NP [address] [place] [address] [facility] [place] [address] Nurse Practitioner Cardiology 07/17/23 documented as of this encounter
--- OUTSIDE RECORDS SUMMARY | 2024-10-13 11:08 | XMS_ITS | Encounter Summary ---
Author Organization [facility] Address [address] [place] [address] Care Team Providers Care Accounting Manager Cpa Name Role Phone Ced Victoria MD Unavailable [phone] Virgie Trivedi NP Unavailable [phone] Kirk Randle MD Primary Care Provider [phone] Alana Celaya NP Unavailable [phone] Encounter Details Date Type Department Care Team Description 02/19/2022 Planning Engineer Report Medical Records [address] [place] [id number] [place] [address] Social History Tobacco Use Types Packs/Day Years [...] suspected to have Coronavirus/COVID-19? No / Unsure 02/10/2022 10:18 AM EDT documented as of this encounter Plan of Treatment Not on file documented as of this encounter Visit Diagnoses Not on filedocumented in this encounter Care Teams Accounting Manager Cpa Relationship Specialty Start Date End Date Kirk Randle MD [address] [place] [address] [address] [place] [address] PCP - General Internal Medicine 06/05/21 Ced Victoria MD [address] [place] [address] [address] [place] [address] Hard Rock Miner Cardiovascular Disease 04/05/21 Virgie Trivedi NP [address] [place] [address] [address] [place] [address] Nurse Practitioner Cardiology 04/05/21 Alana Celaya NP [address] [place] [address] [facility] [place] [address] Nurse Practitioner Cardiology 07/17/23 documented as of this encounter
--- OUTSIDE RECORDS SUMMARY | 2024-10-13 11:08 | XMS_ITS | Encounter Summary ---
Author Organization [facility] Address [address] [place] [address] Care Team Providers Care Mig Welder Name Role Phone Kirk Randle MD Primary Care Provider [phone] Ced Victoria MD Unavailable [phone] Virgie Trivedi VEHICLE FARE COLLECTOR Unavailable [phone] Kirk Randle MD Primary Care Provider [phone] Alana Celaya VEHICLE FARE COLLECTOR Unavailable [phone] Encounter Details Date Type Department Care Team Description 04/01/2021 Hospital Medical Records [address] [place] [id number] [place] [address] Social History Tobacco Use Types Packs/Day Years [...] Exposure Response Date Recorded In the last month, have you been in contact with someone who was confirmed or suspected to have Coronavirus / COVID-19? No / Unsure 03/03/2021 10:41 AM EDT documented as of this encounter Plan of Treatment Not on file documented as of this encounter Procedures Procedure Name Priority Date/Time Associated Diagnosis Comments OUTSIDE VASCULAR STUDY Routine 04/09/2021 OUTSIDE ECHO Routine 04/03/2021 OUTSIDE EKG Routine 04/01/2021 OUTSIDE NUCLEAR STRESS TEST Routine 03/24/2021 documented in this encounter Results * OUTSIDE VASCULAR STUDY (04/09/2021) Provider Default CARDIOLOGY * OUTSIDE ECHO (04/03/2021) Provider Default CARDIOLOGY * OUTSIDE EKG (04/01/2021) Provider Default CARDIOLOGY * OUTSIDE NUCLEAR STRESS TEST (03/24/2021) Provider Default CARDIOLOGY documented in this encounter Visit Diagnoses Not on filedocumented in this encounter Care Teams Mig Welder Relationship Specialty Start Date End Date Kirk Randle MD PCP - General Internal Medicine 07/12/20 06/04/21 Kirk Randle MD PCP - General Internal Medicine 06/05/21 Ced Victoria MD [address] [place] [address] [address] [place] [address] Manager Proposal Cardiovascular Disease 04/05/21 Virgie Trivedi NP [address] [place] [address] [address] [place] [address] Nurse Practitioner Cardiology 04/05/21 Alana Celaya NP [address] [place] [address] [facility] [place] [address] Nurse Practitioner Cardiology 07/17/23 documented as of this encounter
--- OUTSIDE RECORDS SUMMARY | 2024-10-13 11:08 | XMS_ITS | Encounter Summary ---
Author Organization [facility] Address [address] [place] [address] Care Team Providers Care Aeronautics Commission Director Name Role Phone Kirk Randle MD Primary Care Provider [phone] Ced Victoria MD Unavailable [phone] Virgie Trivedi BRATTICE BUILDER Unavailable [phone] Kirk Randle MD Primary Care Provider [phone] Alana Celaya BRATTICE BUILDER Unavailable [phone] Encounter Details Date Type Department Care Team Description 04/10/2021 Hospital Medical Records [address] [place] [address] Kimberley Rios PA-C [address] [facility] [address] [place] [address] Social History Tobacco Use Types Packs/Day [...] on filedocumented in this encounter Care Teams Aeronautics Commission Director Relationship Specialty Start Date End Date Kirk Randle MD PCP - General Internal Medicine 07/12/20 06/04/21 Kirk Randle MD PCP - General Internal Medicine 06/05/21 Ced Victoria MD [address] [place] [address] [address] [place], [place] [id number] Practice Physician Cardiovascular Disease 04/05/21 Virgie Trivedi NP [address] [place] [address] [address] [place], [place] [address] Nurse Practitioner Cardiology 04/05/21 Alana Celaya NP [address] [place] [address] [facility] [place] [address] Nurse Practitioner Cardiology 07/17/23 documented as of this encounter
--- OUTSIDE RECORDS SUMMARY | 2024-10-13 11:08 | XMS_ITS | Encounter Summary ---
Author Organization [facility] Address [address] [place] [address] Care Team Providers Care Health Social Work Professor Name Role Phone Ced Victoria MD Unavailable [phone] Virgie Trivedi NP Unavailable [phone] Kirk Randle MD Primary Care Provider [phone] Alana Celaya NP Unavailable Reason for Visit * Reason Onset Date Comments Faxed Refill 08/30/2022 Encounter Details Date Type Department Care Team Description 08/30/2022 Telephone Internal Medicine - [address], [address] [place] [address] Kirk Randle MD [address] [place] [address] Faxed Refill Social History Tobacco Use Types Packs/Day Years [...] suspected to have Coronavirus/COVID-19? No / Unsure 08/30/2022 2:01 PM EST documented as of this encounter Miscellaneous Notes * Telephone Encounter - Justine Stephen MA - 08/30/2022 3:46 PM EST ?? Disp Refills Start End JANTOVEN 5 MG tablet (Discontinued) 120 Tab 1 12/05/2020 05/30/2021 Sig: TAKE 1/2 TABLET BY MOUTH EVERY DAY EXCEPT SATURDAY WHERE YOU WILL TAKE 1 FULL TABLET Sent to pharmacy as: Jantoven 5 MG Oral Tablet Class: Normal Reason for Discontinue: no longer needed Order: [id number] Date/Time Signed: 12/05/2020 12:28 PM E-Prescribing Status: Receipt confirmed by pharmacy (12/05/2020 12:29 PM EDT) Renewals Renewal provider: Octavio Gross MD This Order Has Been Discontinued Order Status Reason By On Discontinued no longer needed Sofia Posadas M.A. 05/30/21 1053 ?? Warnings Override History Total number of overridden warnings: 1 Full Warnings History Pharmacy [facility] - [place] - [address] Are you willing to fill? * Telephone Encounter - Shorty Victoria - 08/30/2022 1:52 PM EST Patient would like script to be: E-PRESCRIBED/FAXED TO PHARMACY When was the patients last office visit in Adult Medicine?: 08/01/22 When was the last time the patient saw their PCP? Same as above Does patient have an upcoming appointment? No (THE MEDICATION IS NOT ON THE MED LIST AND IS IDENTIFIED BELOW): {MED LIST:[id number]) Med name: JANTOVEN tablet (Discontinued) Dosage: 5 MG # of tablets: 120? Local pharmacy with request for 90 -day supply Instructions: Sig: TAKE 1/2 TABLET BY MOUTH EVERY DAY EXCEPT SATURDAY WHERE YOU WILL TAKE 1 FULL TABLET Did you check the pharmacy information above?: YES Patients current insurance carrier: Payor: [facility] / Plan: [employer] PREF HMO $10 [place] / Product Type: MEDICARE RISK Insurance ID #: No Subscriber Number on File documented in this encounter Plan of Treatment Not on file documented as of this encounter Visit Diagnoses Not on filedocumented in this encounter Care Teams Health Social Work Professor Relationship Specialty Start Date End Date Kirk Randle MD [address] [place] [address] [address] [place] [address] PCP - General Internal Medicine 06/05/21 Ced Victoria MD [address] [place] [address] [address] [place] [address] Steam Tunnel Feeder Cardiovascular Disease 04/05/21 Virgie Trivedi NP [address] [place] [address] [address] [place] [address] Nurse Practitioner Cardiology 04/05/21 Alana Celaya NP [address] [place] [address] [facility] [place] [address] Nurse Practitioner Cardiology 07/17/23 documented as of this encounter
--- OUTSIDE RECORDS SUMMARY | 2024-10-13 11:08 | XMS_ITS | Encounter Summary ---
Author Organization [facility] Address [address] [place] [address] Care Team Providers Care Returns Supervisor Name Role Phone Kirk Randle MD Primary Care Provider [phone] Ced Victoria MD Unavailable [phone] Virgie Trivedi ESTHETICIAN PERMANENT MAKEUP ARTIST Unavailable [phone] Kirk Randle MD Primary Care Provider [phone] Alana Celaya ESTHETICIAN PERMANENT MAKEUP ARTIST Unavailable [phone] Reason for Visit * Reason Onset Date Comments VNA Call 03/23/2021 Encounter Details Date Type Department Care Team Description 03/23/2021 Telephone Pulmonology - [address] [place] [address] Kirk Randle MD [address] [place] [address] VNA Call Social History Tobacco Use Types Packs/Day Years [...] AM EDT documented as of this encounter Miscellaneous Notes * Telephone Encounter - Judi Truong RN - 03/23/2021 12:08 PM EDT FYI, verbal orders given. * Telephone Encounter - Gail Finnegan - 03/23/2021 11:59 AM EDT [facility]NA CALL Which [facility] office is calling? Yane at home Full name of caller: Dipti Church 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 management development specialist Is the caller at the patients home?: NO Reason for call: verbal order Nursing. Patient will be discharge from Hospital 03/24 Does caller need an urgent call back? NO Was CONTACT Telephone # obtained above?: YES Fax #: documented in this encounter Plan of Treatment Not on file documented as of this encounter Visit Diagnoses Not on filedocumented in this encounter Care Teams Returns Supervisor Relationship Specialty Start Date End Date Kirk Randle MD PCP - General Internal Medicine 07/12/20 06/04/21 Kirk Randle MD PCP - General Internal Medicine 06/05/21 Ced Victoria MD [address] [place] [address] [address] [place] [address] Casting Wheel Operator Cardiovascular Disease 04/05/21 Virgie Trivedi NP [address] [place] [address] [address] [place] [address] Nurse Practitioner Cardiology 04/05/21 Alana Celaya NP [address] [place] [address] [facility] [place], [place] [address] Nurse Practitioner Cardiology 07/17/23 documented as of this encounter
--- OUTSIDE RECORDS SUMMARY | 2024-10-13 11:08 | XMS_ITS | Encounter Summary ---
Author Organization [facility] Address [address] [place] [address] Care Team Providers Care Gluing Machine Adjuster Name Role Phone Ced Victoria MD Unavailable [phone] Virgie Trivedi NP Unavailable [phone] Kirk Randle MD Primary Care Provider [phone] Alana Celaya NP Unavailable [phone] Reason for Visit * Reason Onset Date Comments Faxed Refill 10/08/2023 Encounter Details Date Type Department Care Team Description 10/08/2023 Refill Internal Medicine - [address], [address] [place] [address] Kirk Randle MD [address] [place] [address] Faxed Refill Social History Tobacco Use Types [...] encounter Miscellaneous Notes * Telephone Encounter - Marisol Vo - 10/08/2023 11:34 AM EST Patient would like to be put back on Jantoven. I pended the medication below. If you do not want Patient on this medication, he would like you to call him. * Telephone Encounter - Kristen Huffman - 10/08/2023 8:58 AM EST Patient would like script to be: E-PRESCRIBED/FAXED TO PHARMACY When was the patients last office visit in Adult Medicine?: 08/27/2023 When was the last time the patient saw their PCP? Same as above Does patient have an upcoming appointment? Yes 01/27/2024 (THE MEDICATION IS NOT ON THE MED LIST AND IS IDENTIFIED BELOW): {MED LIST:64729) Med name: JANTOVEN 5 MG tablet (Discontinued) Dosage: 5 MG # of tablets: 90 Local pharmacy with request for 90 -day supply Instructions: Take 1 tablet by mouth daily or as instructed Did you check the pharmacy information above?: YES Patients current insurance carrier: Payor: [facility] / Plan: [place] [employer] PREF HMO $10 [place] / Product Type: MEDICARE RISK Insurance ID #: No Subscriber Number on File documented in this encounter Plan of Treatment Not on file documented as of this encounter Visit Diagnoses Not on filedocumented in this encounter Care Teams Gluing Machine Adjuster Relationship Specialty Start Date End Date Kirk Randle MD [address] [place] [address] [address] [place] [address] PCP - General Internal Medicine 06/05/21 Ced Victoria MD [address] [place] [address] [address] [place] [address] Change Lead Cardiovascular Disease 04/05/21 Virgie Trivedi NP [address] [place] [address] [address] [place] [address] Nurse Practitioner Cardiology 04/05/21 Alana Celaya, GILBERTO [address] [place] [address] [facility] [place] [address] Nurse Practitioner Cardiology 07/17/23 documented as of this encounter
--- OUTSIDE RECORDS SUMMARY | 2024-10-13 11:08 | XMS_ITS | Encounter Summary ---
Author Organization [facility] Address [address] [place] [address] Care Team Providers Care Green Chainer Name Role Phone Ced Victoria MD Unavailable [phone] Virgie Trivedi NP Unavailable [phone] Kirk Randle MD Primary Care Provider [phone] Alana Celaya NP Unavailable [phone] Encounter Details Date Type Department Care Team Description 10/15/2023 Orders Only Medical Records [address] [place] [address] [place] Social History Tobacco Use Types Packs/Day Years [...] Procedure Name Priority Date/Time Associated Diagnosis Comments CHG PROTHROMBIN TIME Routine 10/01/2023 documented in this encounter Results * CHG PROTHROMBIN TIME (10/01/2023) [place] documented in this encounter Visit Diagnoses Not on filedocumented in this encounter Care Teams Green Chainer Relationship Specialty Start Date End Date Kirk Randle MD [address] [place] [address] DRIVE [address] [place] [address] PCP - General Internal Medicine 06/05/21 Ced Victoria MD [address] [place] [address] [address] [place] [address] Towel Folder Cardiovascular Disease 04/05/21 Virgie Trivedi NP [address] [place] [address] [address] [place] [address] Nurse Practitioner Cardiology 04/05/21 Alana Celaya NP [address] [place] [address] [facility] [place] [address] Nurse Practitioner Cardiology 07/17/23 documented as of this encounter
--- OUTSIDE RECORDS SUMMARY | 2024-10-13 11:08 | XMS_ITS | Encounter Summary ---
Author Organization [facility] Address [address] [place] [address] Care Team Providers Care Revolving Field Assembler Name Role Phone Kirk Randle MD Primary Care Provider [phone] Ced Victoria MD Unavailable [phone] Virgie Trivedi CASING WRINGER OPERATOR Unavailable [phone] Kirk Randle MD Primary Care Provider + [phone] Alana Celaya CASING WRINGER OPERATOR Unavailable [phone] Encounter Details Date Type Department Care Team Description 08/29/2020 Telephone Cardio PVCA Diag Testing [address] [facility] [address] [place], [place] [id number] Raffy Gardner MD FACS [address] [facility] [address] [place] [address] Social History Tobacco Use Types [...] encounter Miscellaneous Notes * Telephone Encounter - Franny Garcia - 08/30/2020 10:43 AM EST Please see updated orders with added diagnosis * Telephone Encounter - Josefina Joy - 08/29/2020 2:34 PM EST [facility] has received the order for Vladimir to have an Arterial Duplex w/ASHA. Unfortunately, the diagnosis provided on the order placed is not covered for this test. Please create a new order with a covered diagnosis to schedule this appointment. Thank you! documented in this encounter Plan of Treatment Not on file documented as of this encounter Visit Diagnoses Not on filedocumented in this encounter Care Teams Revolving Field Assembler Relationship Specialty Start Date End Date Kirk Randle MD PCP - General Internal Medicine 07/12/20 06/04/21 Kirk Randle MD PCP - General Internal Medicine 06/05/21 Ced Victoria MD [address] [place] [address] [address] [place] [address] Booking Manager Cardiovascular Disease 04/05/21 Virgie Trivedi NP [address] [place] [address] [address] [place] [address] Nurse Practitioner Cardiology 04/05/21 Alana Celaya NP [address] [place] [address] [facility] [place] [address] Nurse Practitioner Cardiology 07/17/23 documented as of this encounter
--- OUTSIDE RECORDS SUMMARY | 2024-10-13 11:08 | XMS_ITS | Encounter Summary ---
Author Organization [facility] Address [address] [place] [address] Care Team Providers Care Elevator Constructor Hydraulic Name Role Phone Kirk Randle MD Primary Care Provider [phone] Ced Victoria MD Unavailable [phone] Virgie Trivedi ASSOCIATE PROFESSOR OF THEOLOGY Unavailable [phone] Kirk Randle MD Primary Care Provider + [phone] Alana Celaya ASSOCIATE PROFESSOR OF THEOLOGY Unavailable [phone] Encounter Details Date Type Department Care Team Description 03/22/2021 Hospital Medical Records [address] [place] [address] Niesha Diallo PA Social History Tobacco Use Types Packs/Day Years [...] Name Priority Date/Time Associated Diagnosis Comments OUTSIDE NUCLEAR STRESS TEST Routine 03/24/2021 OUTSIDE ECHO Routine 03/23/2021 documented in this encounter Results * OUTSIDE NUCLEAR STRESS TEST (03/24/2021) Provider Default CARDIOLOGY * OUTSIDE ECHO (03/23/2021) Provider Default CARDIOLOGY documented in this encounter Visit Diagnoses Not on filedocumented in this encounter Care Teams Elevator Constructor Hydraulic Relationship Specialty Start Date End Date Kirk Randle MD PCP - General Internal Medicine 07/12/20 06/04/21 Kirk Randle MD PCP - General Internal Medicine 06/05/21 Ced Victoria MD [address] [place] [address] [address] [place] [address] Physicist Solid State Cardiovascular Disease 04/05/21 Virgie Trivedi NP [address] [place] [address] [address] [place] [address] Nurse Practitioner Cardiology 04/05/21 Alana Celaya NP [address] [place] [address] [facility] [place] [address] Nurse Practitioner Cardiology 07/17/23 documented as of this encounter
--- OUTSIDE RECORDS SUMMARY | 2024-10-13 11:08 | XMS_ITS | Encounter Summary ---
Author Organization [facility] Address [address] [place] [address] Care Team Providers Care Inventory Control Supervisor Name Role Phone Kirk Randle MD Primary Care Provider [phone] Ced Victoria MD Unavailable [phone] Virgie Trivedi DOMESTIC HOUSEKEEPER Unavailable [phone] Kirk Randle MD Primary Care Provider [phone] Alana Celaya NP Unavailable [phone] Encounter Details Date Type Department Care Team Description 03/20/2021 Authorization Representative Report Medical Records [address] [place] [address] Agustin Gore Social History Tobacco Use Types Packs/Day Years [...] on filedocumented in this encounter Care Teams Inventory Control Supervisor Relationship Specialty Start Date End Date Kirk Randle MD PCP - General Internal Medicine 07/12/20 06/04/21 Kirk Randle MD PCP - General Internal Medicine 06/05/21 Ced Victoria MD [address] [place] [address] [address] [place] [address] Informatics Pharmacist Cardiovascular Disease 04/05/21 Virgie Trivedi NP [address] [place] [address] [address] [place], [place] [address] Nurse Practitioner Cardiology 04/05/21 Alana Celaya NP [address] [place] [address] [facility] [place] [address] Nurse Practitioner Cardiology 07/17/23 documented as of this encounter
--- OUTSIDE RECORDS SUMMARY | 2024-10-13 11:08 | XMS_ITS | Encounter Summary ---
Author Organization [facility] Address [address] [place] [address] Care Team Providers Care Prosthodontist/Educator Name Role Phone Kirk Randle MD Primary Care Provider [phone] Ced Victoria MD Unavailable [phone] Virgie Trivedi NP Unavailable [phone] Kirk Randle MD Primary Care Provider + [phone] Alana Celaya STRATIGRAPHER Unavailable [phone] Encounter Details Date Type Department Care Team Description 04/10/2021 Hospital Medical Records [address] [place] [address] Roldan Ni, [place] [address] [address] Social History Tobacco Use Types Packs/Day Years [...] on filedocumented in this encounter Care Teams Prosthodontist/Educator Relationship Specialty Start Date End Date Kirk Randle MD PCP - General Internal Medicine 07/12/20 06/04/21 Kirk Randle MD PCP - General Internal Medicine 06/05/21 Ced Victoria MD [address] [place] [address] [address] [place], [place] [phone] Calender Roll Press Operator Cardiovascular Disease 04/05/21 Virgie Trivedi NP [address] [place] [address] [address] [place], [place] [address] Nurse Practitioner Cardiology 04/05/21 Alana Celaya NP [address] [place] [address] [facility] [place], [place] [address] Nurse Practitioner Cardiology 07/17/23 documented as of this encounter
--- OUTSIDE RECORDS SUMMARY | 2024-10-13 11:08 | XMS_ITS | Encounter Summary ---
Author Organization [facility] Address [address] [place] [address] Care Team Providers Care Sunday School Missionary Name Role Phone Ced Victoria MD Unavailable [phone] Virgie Trivedi NP Unavailable [phone] Kirk Randle MD Primary Care Provider [phone] Alana Celaya NP Unavailable [phone] Encounter Details Date Type Department Care Team Description 07/12/2023 SCAN Medical Records [address] [place] [address] [facility] Social History Tobacco Use Types Packs/Day Years [...] on filedocumented in this encounter Care Teams Sunday School Missionary Relationship Specialty Start Date End Date Kirk Randle MD [address] [place] [address] [address] [place] [address] PCP - General Internal Medicine 06/05/21 Ced Victoria MD [address] [place] [address] [address] [place] [address] Motor Vehicle Light Assembler Cardiovascular Disease 04/05/21 Virgie Trivedi NP [address] [place] [address] [address] [place] [address] Nurse Practitioner Cardiology 04/05/21 Alana Celaya NP [address] [place] [address] [facility] [place] [address] Nurse Practitioner Cardiology 07/17/23 documented as of this encounter
--- OUTSIDE RECORDS SUMMARY | 2024-10-13 11:08 | XMS_ITS | Encounter Summary ---
Author Organization [facility] Address [address] [place] [address] Care Team Providers Care Infantry Weapons Officer Name Role Phone Kirk Randle MD Primary Care Provider [phone] Ced Victoria MD Unavailable [phone] Virgie Trivedi CART PUSHER Unavailable [phone] Kirk Randle MD Primary Care Provider [phone] Alana Celaya CART PUSHER Unavailable [phone] Reason for Visit * Reason Onset Date Comments REFERRAL 11/18/2020 Encounter Details Date Type Department Care Team Description 11/18/2020 Telephone Internal Medicine - [address], [address] [place] [address] Kirk Randle MD [address] [place] [address] REFERRAL Social History Tobacco Use Types Packs/Day Years [...] encounter Miscellaneous Notes * Telephone Encounter - Lottie Haro - 11/18/2020 2:25 PM EST Subscriber: VLADIMIR FLYNN Submitter : KIRK RANDLE Submitter Type: Provider : 1940 Referral (#[id number]) Specialty Care Review Type: Initial Certification Status : Certified in total Service Type : Medical Care Place Of Service : Office Visits : 6 Service Date : 11/22/2020-11/22/2021 Service Providers Provider Name ID Provider Type DUTCH CAZARES NPI : [id number] Service Provider * Telephone Encounter - Gail Finnegan - 11/18/2020 1:42 PM EST What insurance does the patient have today? [facility] Effective 06/09/09: BS will not retro referral requests over 90 days. If request is for this please instruct patient to call the 800# on their insurance card to appeal. Do not submit a request. Referrals cannot be processed if the insurance is not accurate. If the insurance listed above in red is NO BILLING INFORMATION FOUND FOR THIS ENCOUTNER The patients correct insurance must be obtained and registered in [facility] or their referral can not be processed. Is this a retro request? NO. If yes for what date of service do you need the retro referral? N/A Who is calling to request this referral? Patient If the caller is not the patient, what is their name? N/A Ask the patient WHO referred them to this specialty: Patient spoke to Dr Randle and was told they would order a referral to this specialty FIRST and LAST NAME of SPECIALIST PATIENT is seeing: Dr Marin Cazares NPI # [id number] What specialty is this? Orthopedics DIAGNOSIS Patient is being seen for (Not a body part or a procedure): Knee replacement Have you seen this SPECIALIST for this PROBLEM/DX before?YES If YES, when: 1 yr ago 2020 Have you checked REVIEW or the APPT DESK to see if this referral has already been done or has visits left? YES Is this visit:Follow Up Address of Specialist: [address] [place] [address] [address] [place] [address] Phone # of Specialist:[phone] Fax #: (if applicable):[phone] Does patient have an appointment scheduled?: YES Date of appointment- (including a retro-request): 11/22/20- for 6 visits Is this appointment related to: Not MVA, WC or Surgery related documented in this encounter Plan of Treatment Not on file documented as of this encounter Visit Diagnoses Not on filedocumented in this encounter Care Teams Infantry Weapons Officer Relationship Specialty Start Date End Date Kirk Randle MD PCP - General Internal Medicine 07/12/20 06/04/21 Kirk Randle MD PCP - General Internal Medicine 06/05/21 Ced Victoria MD [address] [place] [address] [address] [place] [address] Diagrammer Cardiovascular Disease 04/05/21 Virgie Trivedi NP [address] [place] [address] [address] [place] [address] Nurse Practitioner Cardiology 04/05/21 Alana Celaya NP [address] [place] [address] [facility] [place] [address] Nurse Practitioner Cardiology 07/17/23 documented as of this encounter
--- OUTSIDE RECORDS SUMMARY | 2024-10-13 11:08 | XMS_ITS | Encounter Summary ---
Author Organization [facility] Address [address] [place] [address] Care Team Providers Care In Class Special Education Teacher Name Role Phone Ced Victoria MD Unavailable [phone] Virgie Trivedi NP Unavailable [phone] Kirk Randle MD Primary Care Provider [phone] Alana Celaya NP Unavailable [phone] Encounter Details Date Type Department Care Team Description 08/27/2023 Telephone Internal Medicine - [address], [address] [place], [place] [phone] Kirk Randle MD [address] [place], [place] [id number] Social History Tobacco Use Types Packs/Day Years [...] on filedocumented in this encounter Care Teams In Class Special Education Teacher Relationship Specialty Start Date End Date Kirk Randle MD [address] [place] [address] [address] [place] [address] PCP - General Internal Medicine 06/05/21 Ced Victoria MD [address] [place] [address] [address] [place] [address] Hand Hose Cutter Cardiovascular Disease 04/05/21 Virgie Trivedi NP [address] [place] [address] [address] [place] [address] Nurse Practitioner Cardiology 04/05/21 Alana Celaya NP [address] [place] [address] [facility] [place] [place] [address] Nurse Practitioner Cardiology 07/17/23 documented as of this encounter
--- OUTSIDE RECORDS SUMMARY | 2024-10-13 11:08 | XMS_ITS | Encounter Summary ---
Author Organization [facility] Address [address] [place] [address] Care Team Providers Care Clinical Education Assistant Name Role Phone Ced Victoria MD Unavailable [phone] Virgie Trivedi NP Unavailable [phone] Kirk Randle MD Primary Care Provider [phone] Alana Celaya NP Unavailable [phone] Reason for Visit * Reason Onset Date Comments [facility]NA Call 06/05/2021 Encounter Details Date Type Department Care Team Description 06/05/2021 Telephone Internal Medicine - [address], [address] [place], [place] [phone] Kirk Randle MD [address] [place], [place] [phone] VNA Call Social History Tobacco Use Types [...] or suspected to have Coronavirus / COVID-19? Yes 05/31/2021 1:07 PM EDT documented as of this encounter Miscellaneous Notes * Telephone Encounter - Kristen Barragan - 06/05/2021 4:27 PM EDT PLEASE SEE BELOW VERBAL ORDERS GIVEN * Telephone Encounter - Cheryl Vielka - 06/05/2021 4:24 PM EDT [facility] CALL Which [facility] office is calling? [email or web address] Full name of caller: candi 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 social services analyst Is the caller at the patients home?: NO Reason for call: needs verbal ok for 1 social work visit Does caller need an urgent call back? NO Was CONTACT Telephone # obtained above?: YES Fax #: documented in this encounter Plan of Treatment Not on file documented as of this encounter Visit Diagnoses Not on filedocumented in this encounter Care Teams Clinical Education Assistant Relationship Specialty Start Date End Date Kirk Randle MD [address] [place] [address] [place] [address] PCP - General Internal Medicine 06/05/21 Ced Victoria MD [address] [place] [address] [place] [address] Straight Tooth Gear Generator Operator Cardiovascular Disease 04/05/21 Virgie Trivedi NP [address] [place] [address] [place] [address] Nurse Practitioner Cardiology 04/05/21 Alana Celaya NP [address] [place] [address] [facility] [place] [address] Nurse Practitioner Cardiology 07/17/23 documented as of this encounter
--- OUTSIDE RECORDS SUMMARY | 2024-10-13 11:08 | XMS_ITS | Encounter Summary ---
Author Organization [facility] Address [address] [place] [address] Care Team Providers Care Hotel Concierge Name Role Phone Ced Victoria MD Unavailable [phone] Virgie Trivedi NP Unavailable [phone] Kirk Randle MD Primary Care Provider [phone] Alana Celaya NP Unavailable [phone] Encounter Details Date Type Department Care Team Description 02/12/2022 Supervisor Shipfitters Report Medical Records [address] [place] [id number] [place] [address] Social History Tobacco Use Types Packs/Day Years [...] on filedocumented in this encounter Care Teams Hotel Concierge Relationship Specialty Start Date End Date Kirk Randle MD [address] [place] [address] [address]IVE [address] [place] [address] PCP - General Internal Medicine 06/05/21 Ced Victoria MD [address] [place] [address] [address] [place] [address] Juice Bar Team Member Cardiovascular Disease 04/05/21 Virgie Trivedi NP [address] [place] [address] [address] [place] [address] Nurse Practitioner Cardiology 04/05/21 Alana Celaya NP [address] [place] [address] [facility] [place] [address] Nurse Practitioner Cardiology 07/17/23 documented as of this encounter
--- OUTSIDE RECORDS SUMMARY | 2024-10-13 11:08 | XMS_ITS | Encounter Summary ---
Author Organization [facility] Address [address] [place] [address] Care Team Providers Care Cane Loader Name Role Phone Ced Victoria MD Unavailable [phone] Virgie Trivedi NP Unavailable [phone] Kirk Ranlde MD Primary Care Provider [phone] Alana Celaya NP Unavailable [phone] Encounter Details Date Type Department Care Team Description 02/26/2022 Grey Percher Report Medical Records [address] [place] [id number] [place] [address] Social History Tobacco Use Types Packs/Day Years [...] on filedocumented in this encounter Care Teams Cane Loader Relationship Specialty Start Date End Date Kirk Randle MD [address] [place] [address] [address] [place] [address] PCP - General Internal Medicine 06/05/21 Ced Victoria MD [address] [place] [address] [address] [place] [address] Gas Line Repairer Cardiovascular Disease 04/05/21 iVrgie Trivedi NP [address] [place] [address] [address] [place] [address] Nurse Practitioner Cardiology 04/05/21 Alana Celaya NP [address] [place] [address] [facility] [place] [address] Nurse Practitioner Cardiology 07/17/23 documented as of this encounter
--- OUTSIDE RECORDS SUMMARY | 2024-10-13 11:08 | XMS_ITS | Encounter Summary ---
Author Organization [facility] Address [address] [place] [address] Care Team Providers Care Squilgeer Name Role Phone Ced Victoria MD Unavailable [phone] Virgie Trivedi NP Unavailable [phone] Kirk Randle MD Primary Care Provider [phone] Alana Celaya NP Unavailable [phone] Encounter Details Date Type Department Care Team Description 01/08/2022 Radiology Special Procedure Tech Report Medical Records [address] [place] [id number] [place] [address] Social History Tobacco Use Types Packs/Day Years [...] on filedocumented in this encounter Care Teams Squilgeer Relationship Specialty Start Date End Date Kirk Randle MD [address] [place] [address] [address] [place] [address] PCP - General Internal Medicine 06/05/21 Ced Victoria MD [address] [place] [address] [address] [place] [address] Blow Torch Burner Cardiovascular Disease 04/05/21 Virgie Trivedi NP [address] [place] [address] [address] [place] [address] Nurse Practitioner Cardiology 04/05/21 Alana Celaya NP [address] [place] [address] [facility] [place] [address] Nurse Practitioner Cardiology 07/17/23 documented as of this encounter
--- OUTSIDE RECORDS SUMMARY | 2024-10-13 11:08 | XMS_ITS | Encounter Summary ---
Author Organization [facility] Address [address] [place] [address] Care Team Providers Care Lead Ramp Service Man Name Role Phone Ced Victoria MD Unavailable [phone] Virgie Trivedi NP Unavailable [phone] Kirk Randle MD Primary Care Provider [phone] Alana Celaya NP Unavailable [phone] Encounter Details Date Type Department Care Team Description 09/17/2023 Orders Only Medical Records [address] [place] [address] [place] Social History Tobacco Use Types [...] Name Priority Date/Time Associated Diagnosis Comments OUTSIDE LAB Routine 09/10/2023 documented in this encounter Results * OUTSIDE LAB (09/10/2023) [place] documented in this encounter Visit Diagnoses Not on filedocumented in this encounter Care Teams Lead Ramp Service Man Relationship Specialty Start Date End Date Kirk Randle MD [address] [place] [address] [address] [place] [address] PCP - General Internal Medicine 06/05/21 Ced Victoria MD [address] [place] [address] [address] [place] [address] Lead Programmer Cardiovascular Disease 04/05/21 Virgie Trivedi NP [address] [place] [address] [address] [place] [address] Nurse Practitioner Cardiology 04/05/21 Alana Celaya NP [address] [place] [address] [facility] [place] [address] Nurse Practitioner Cardiology 07/17/23 documented as of this encounter
--- OUTSIDE RECORDS SUMMARY | 2024-10-13 11:08 | XMS_ITS | Encounter Summary ---
Author Organization [facility] Address [address] [place] [address] Care Team Providers Care Mental Health Director Name Role Phone Ced Victoria MD Unavailable [phone] Virgie Trivedi NP Unavailable [phone] Kirk [place]le MD Primary Care Provider [phone] Alana Celaya NP Unavailable [phone] Encounter Details Date Type Department Care Team Description 04/02/2022 Spring Coiler Report Medical Records [address] [place] [address] Feliz Gonzalez Social History Tobacco Use Types Packs/Day Years [...] was confirmed or suspected to have Coronavirus/COVID-19? Unable to assess 04/04/2022 7:35 AM EDT documented as of this encounter Plan of Treatment Not on file documented as of this encounter Visit Diagnoses Not on filedocumented in this encounter Care Teams Mental Health Director Relationship Specialty Start Date End Date Kirk [place]le MD [address] [place] [address] [address] [place] [address] PCP - General Internal Medicine 06/05/21 Ced Victoria MD [address] [place] [address] [address] [place] [address] Tipping Machine Operator Cardiovascular Disease 04/05/21 Virgie Trivedi NP [address] [place] [address] [address] [place] [address] Nurse Practitioner Cardiology 04/05/21 Alana Celaya NP [address] [place] [address] [facility] [place] [address] Nurse Practitioner Cardiology 07/17/23 documented as of this encounter
--- OUTSIDE RECORDS SUMMARY | 2024-10-13 11:08 | XMS_ITS | Encounter Summary ---
Author Organization [facility] Address [address] [place] [address] Care Team Providers Care Lead Laying And Gluing Machine Operator Name Role Phone Kirk [place]le MD Primary Care Provider [phone] Cde Victoria MD Unavailable [phone] Virgie Trivedi PHARMACY PICKING TECHNICIAN Unavailable [phone] Kirk [place]le MD Primary Care Provider + [phone] Alana Celaya PHARMACY PICKING TECHNICIAN Unavailable [phone] Encounter Details Date Type Department Care Team Description 04/10/2021 SCAN Medical Records [address] [place] [address] Social History Tobacco Use Types Packs/Day Years [...] Name Priority Date/Time Associated Diagnosis Comments OUTSIDE CT Routine 04/10/2021 documented in this encounter Results * OUTSIDE CT (04/10/2021) Provider Default RADIOLOGY documented in this encounter Visit Diagnoses Not on filedocumented in this encounter Care Teams Lead Laying And Gluing Machine Operator Relationship Specialty Start Date End Date Kirk [place]le MD PCP - General Internal Medicine 07/12/20 06/04/21 Kirk [place]le MD PCP - General Internal Medicine 06/05/21 Ced Victoria MD [address] [place] [address] [address] [place], [place] [phone] Candy Feeder Cardiovascular Disease 04/05/21 Virgie Trivedi NP [address] [place] [address] [address] [place] [address] Nurse Practitioner Cardiology 04/05/21 Alana Celaya NP [address] [place] [address] [facility] [place], [place] [address] Nurse Practitioner Cardiology 07/17/23 documented as of this encounter
--- OUTSIDE RECORDS SUMMARY | 2024-10-13 11:08 | XMS_ITS | Encounter Summary ---
Author Organization [facility] Address [address] [place] [address] Care Team Providers Care Utility Agent Name Role Phone Ced Victoria MD Unavailable [phone] Virgie Trivedi NP Unavailable [phone] Kirk [place]le MD Primary Care Provider [phone] Alana Celaya NP Unavailable [phone] Encounter Details Date Type Department Care Team Description 07/02/2023 Orders Only Medical Records [address] [place] [address] [place] Social History Tobacco Use Types [...] Date/Time Associated Diagnosis Comments OUTSIDE LAB Routine 06/20/2023 documented in this encounter Results * OUTSIDE LAB (06/20/2023) [place] documented in this encounter Visit Diagnoses Not on filedocumented in this encounter Care Teams Utility Agent Relationship Specialty Start Date End Date Kirk [place]le MD [address] [place] [address] [address] [place] [address] PCP - General Internal Medicine 06/05/21 Ced Victoria MD [address] [place] [address] [address] [place] [address] Shuttle Repairer Cardiovascular Disease 04/05/21 Virgie Trivedi NP [address] [place] [address] [address] [place] [address] Nurse Practitioner Cardiology 04/05/21 Alana Celaya NP [address] [place] [address] Dr [facility] [place] [address] Nurse Practitioner Cardiology 07/17/23 documented as of this encounter
--- OUTSIDE RECORDS SUMMARY | 2024-10-13 11:08 | XMS_ITS | Encounter Summary ---
Author Organization [facility] Address [address] [place] [address] Care Team Providers Care Wet Pour Supervisor Name Role Phone Ced Victoria MD Unavailable [phone] Virgie Trivedi NP Unavailable [phone] Kirk [place]le MD Primary Care Provider [phone] Alana Celaya NP Unavailable [phone] Encounter Details Date Type Department Care Team Description 06/05/2021 Telephone Cardio PVCA Diag Testing [address] [place] [address] Lakisha Garrett PA Social History Tobacco Use Types Packs/Day [...] encounter Miscellaneous Notes * Telephone Encounter - Lakisha Garrett PA-C - 06/05/2021 2:03 PM EDT Received call from JUAN Mccormick [facility] [place]. She is seeing Mr. Flynn for his wound care appointment. 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 Advised that I see that he has vascular surgery appt 06/16/2021 with DOCTOR OSTEOPATHIC through [facility]. I also advised his LEANNA report is not in our system yet (had it done 06/02). She will f/u with us after his vascular surgery appt. documented in this encounter Plan of Treatment Not on file documented as of this encounter Visit Diagnoses Not on filedocumented in this encounter Care Teams Wet Pour Supervisor Relationship Specialty Start Date End Date Kirk [place]le MD [address] [place] [address] [place] [address] PCP - General Internal Medicine 06/05/21 Ced [place] MD [address] [place] [address] [address] [place] [address] Metal Burrer Cardiovascular Disease 04/05/21 Virgie Trivedi NP [address] [place] [address] [place] [address] Nurse Practitioner Cardiology 04/05/21 Alana Celaya NP [address] [place] [address] [facility] [place] [address] Nurse Practitioner Cardiology 07/17/23 documented as of this encounter
--- OUTSIDE RECORDS SUMMARY | 2024-10-13 11:08 | XMS_ITS | Encounter Summary ---
Author Organization [facility] Address [address] [place] [address] Care Team Providers Care Brazing Machine Operator Automatic Name Role Phone Ced Victoria MD Unavailable [phone] Virgie Trivedi NP Unavailable [phone] Kirk Randle MD Primary Care Provider [phone] Alana Celaya NP Unavailable [phone] Encounter Details Date Type Department Care Team Description 06/18/2023 Orders Only Medical Records [address] [place] [address] Abstract, Provider Social History Tobacco Use Types Packs/Day Years [...] Date/Time Associated Diagnosis Comments OUTSIDE LAB Routine 06/06/2023 documented in this encounter Results * OUTSIDE LAB (06/06/2023) Provider Abstract LAB documented in this encounter Visit Diagnoses Not on filedocumented in this encounter Care Teams Brazing Machine Operator Automatic Relationship Specialty Start Date End Date Kirk Randle MD [address] [place] [address] [address] [place] [address] PCP - General Internal Medicine 06/05/21 Ced Victoria MD [address] [place] [address] [address] [place] [address] Tape Coater Cardiovascular Disease 04/05/21 Virgie Trivedi NP [address] [place] [address] [address] [place] [address] Nurse Practitioner Cardiology 04/05/21 Alana Celaya NP [address] [place] [address] [facility] [place] [address] Nurse Practitioner Cardiology 07/17/23 documented as of this encounter
--- OUTSIDE RECORDS SUMMARY | 2024-10-13 11:08 | XMS_ITS | Encounter Summary ---
Author Organization [facility] Address [address] [place] [address] Care Team Providers Care Auto Locator Name Role Phone Ced Victoria MD Unavailable [phone] Virgie Trivedi NP Unavailable [phone] Kirk Randle MD Primary Care Provider [phone] Alana Celaya NP Unavailable [phone] Encounter Details Date Type Department Care Team Description 01/16/2022 Electrical Automation Engineer Report Medical Records [address] [place] [address] Social History Tobacco Use Types Packs/Day Years [...] on filedocumented in this encounter Care Teams Auto Locator Relationship Specialty Start Date End Date Kirk Randle MD [address] [place] [address] [address] [place], [place] [id number] PCP - General Internal Medicine 06/05/21 Ced Victoria MD [address] [place] [address] [address] [place] [address] Fishing Tool Technician Oil Well Cardiovascular Disease 04/05/21 Virgie Trivedi NP [address] [place] [address] [address] [place] [address] Nurse Practitioner Cardiology 04/05/21 Alana Celaya NP [address] [place] [address] [facility] [place] [address] Nurse Practitioner Cardiology 07/17/23 documented as of this encounter
--- OUTSIDE RECORDS SUMMARY | 2024-10-13 11:08 | XMS_ITS | Encounter Summary ---
Author Organization [facility] Address [address] [place] [address] Care Team Providers Care Dean Of Students Name Role Phone Ced Victoria MD Unavailable [phone] Virgie Trivedi NP Unavailable [phone] Kirk [place]le MD Primary Care Provider [phone] Alana Celaya NP Unavailable [phone] Reason for Visit * Reason Onset Date Comments Faxed Order 10/07/2023 Orestesders - Vi kathryn sign alert report Encounter Details Date Type Department Care Team Description 10/07/2023 Telephone Internal Medicine - [address], [address] [place] [address] Kirk [place]le MD [address] [place] [address] Faxed Order ([facility] - Vital sign alert report ) Social History Tobacco Use Types Packs/Day Years [...] encounter Miscellaneous Notes * Telephone Encounter - Ara Perez - 10/10/2023 8:13 AM EST Faxed & Confirmed to [facility] * Telephone Encounter - Ara Chris - 10/07/2023 10:11 AM EST [facility] - Vital sign alert report Please sign & documented in this encounter Plan of Treatment Not on file documented as of this encounter Visit Diagnoses Not on filedocumented in this encounter Care Teams Dean Of Students Relationship Specialty Start Date End Date Kirk [place]le MD [address] [place] [address] [address] [place] [address] PCP - General Internal Medicine 06/05/21 Ced Victoria MD [address] [place] [address] [address] [place] [address] Pigment Presser Cardiovascular Disease 04/05/21 Virgie Trivedi NP [address] [place] [address] [place] [address] Nurse Practitioner Cardiology 04/05/21 Alana Celaya NP [address] [place] [address] [facility] [place] [address] Nurse Practitioner Cardiology 07/17/23 documented as of this encounter
--- OUTSIDE RECORDS SUMMARY | 2024-10-13 11:08 | XMS_ITS | Encounter Summary ---
Author Organization [facility] Address [address] [place] [address] Care Team Providers Care Trade Sales Assistant Name Role Phone Kirk [place]le MD Primary Care Provider [phone] Ced Victoria MD Unavailable [phone] Virgie Trivedi NP Unavailable [phone] Krik [place]le MD Primary Care Provider + [phone] Alana Celaya NP Unavailable [phone] Reason for Visit * Reason Onset Date Comments Hospital Procedure 04/13/2021 LEANNA 9.24.21 Encounter Details Date Type Department Care Team Description 04/13/2021 Telephone Cardio PVC POC [address] [facility] [address] [place], [place] [phone] Parris Dyer, GILBERTO 300 [facility] [address] [place] [address] Hospital Procedure (LEANNA 9.24.21) Social History Tobacco Use Types Packs/Day Years [...] encounter Miscellaneous Notes * Telephone Encounter - Sangita Alvarez C.M.A. - 05/05/2021 11:56 AM EDT Spoke with patient about procedure. Scheduled on 06.02.21 per patients request at [facility] w/ [facility] at 130pm. Mailing packet to patient. * Telephone Encounter - Sangita Alvarez C.M.A. - 04/21/2021 10:04 AM EDT Lvmtcb * Telephone Encounter - Sangita Alvarez C.M.A. - 04/13/2021 1:30 PM EDT LVMTCB to schedule LEANNA documented in this encounter Plan of Treatment Not on file documented as of this encounter Visit Diagnoses Diagnosis Subacute bacterial endocarditis- Primary Acute and subacute bacterial endocarditis documented in this encounter Care Teams Trade Sales Assistant Relationship Specialty Start Date End Date Kirk [place]le MD PCP - General Internal Medicine 07/12/20 06/04/21 Kirk [place]le MD PCP - General Internal Medicine 06/05/21 Ced Victoria MD [address] [place] [address] [address] [place] [address] Floor Assembler Cardiovascular Disease 04/05/21 Virgie Trivedi NP [address] [place] [address] [address] [place] [address] Nurse Practitioner Cardiology 04/05/21 Alana Celaya NP [address] [place] [address] [facility] [place] [address] Nurse Practitioner Cardiology 07/17/23 documented as of this encounter
--- OUTSIDE RECORDS SUMMARY | 2024-10-13 11:08 | XMS_ITS | Encounter Summary ---
Author Organization [facility] Address [address] [place] [address] Care Team Providers Care Glass Crusher Name Role Phone Ced Victoria MD Unavailable [phone] Virgie Trivedi NP Unavailable [phone] Kirk [place]le MD Primary Care Provider [phone] Alana Celaya NP Unavailable [phone] Encounter Details Date Type Department Care Team Description 08/30/2022 Orders Only Internal Medicine - [address], [address] [place] [address] Kirk [place]le MD [address] [place], [place] [address] Social History Tobacco Use Types Packs/Day Years [...] PM EST documented as of this encounter Plan of Treatment Not on file documented as of this encounter Visit Diagnoses Not on filedocumented in this encounter Care Teams Glass Crusher Relationship Specialty Start Date End Date Kirk [place]le MD [address] [place] [address] [address] [place] [address] PCP - General Internal Medicine 06/05/21 Ced Victoria MD [address] [place] [address] [address] [place] [address] Purification Supervisor Cardiovascular Disease 04/05/21 Virgie Trivedi NP [address] [place] [address] [address] [place] [address] Nurse Practitioner Cardiology 04/05/21 Alana Celaya NP [address] [place] [address] [facility] [place] [address] Nurse Practitioner Cardiology 07/17/23 documented as of this encounter
--- OUTSIDE RECORDS SUMMARY | 2024-10-13 11:08 | XMS_ITS | Encounter Summary ---
Author Organization [facility] Address [address] [place] [address] Care Team Providers Care Geothermal Hvac Technician Name Role Phone Kirk [place] MD Primary Care Provider [phone] Ced Victoria MD Unavailable [phone] Virgie Trivedi LAST PULLER Unavailable [phone] Kirk [place]le MD Primary Care Provider + [phone] Alana Celaya LAST PULLER Unavailable [phone] Encounter Details Date Type Department Care Team Description 04/13/2021 SCAN Medical Records [address] [place] [address] Abstract, Provider Social History Tobacco Use Types [...] Date/Time Associated Diagnosis Comments OUTSIDE LAB Routine 04/13/2021 documented in this encounter Results * OUTSIDE LAB (04/13/2021) Provider Default LAB documented in this encounter Visit Diagnoses Not on filedocumented in this encounter Care Teams Geothermal Hvac Technician Relationship Specialty Start Date End Date Kirk [place]le MD PCP - General Internal Medicine 07/12/20 06/04/21 Kirk [place]le MD PCP - General Internal Medicine 06/05/21 Ced Victoria MD [address] [place] [address] [address] [place] [address] Ostomy Nurse Cardiovascular Disease 04/05/21 Virgie Trivedi NP [address] [place] [address] [address] [place], [place] [address] Nurse Practitioner Cardiology 04/05/21 Alana Celaya NP [address] [place] [address] [facility] [place], [place] [address] Nurse Practitioner Cardiology 07/17/23 documented as of this encounter
--- OUTSIDE RECORDS SUMMARY | 2024-10-13 11:08 | XMS_ITS | Encounter Summary ---
Author Organization [facility] Address [address] [place] [address] Care Team Providers Care Waste Machine Offbearer Name Role Phone Kirk [place] MD Primary Care Provider [phone] Ced Victoria MD Unavailable [phone] Virgie Trivedi BRICKMASON Unavailable [phone] Kirk [place] MD Primary Care Provider + [phone] Alana Celaya NP Unavailable [phone] Encounter Details Date Type Department Care Team Description 04/12/2021 Orders Only Cardio PVC POC 154 [address] [facility] [address] [place], [place] [phone] Parris Dyer NP [address] [place] [address] Subacute bacterial endocarditis (Primary Dx) Social History Tobacco Use Types Packs/Day Years [...] as of this encounter Plan of Treatment Scheduled Orders Name Type Priority Associated Diagnoses Orde r Schedule ECHO TRANSESOPHAG R-T 2D W/PRB IMG ACQUISJ I&R Cardiology Routine Subacute bacterial endocarditis Ordered: 04/12/2021 documented as of this encounter Visit Diagnoses Diagnosis Subacute bacterial endocarditis- Primary Acute and subacute bacterial endocarditis documented in this encounter Care Teams Waste Machine Offbearer Relationship Specialty Start Date End Date Kirk [place]le MD PCP - General Internal Medicine 07/12/20 06/04/21 Kirk [place]le MD PCP - General Internal Medicine 06/05/21 Ced Victoria MD [address] [place] [address] [address] [place], [place] [phone] Graphics Edit Technician Cardiovascular Disease 04/05/21 Virgie Trivedi NP [address] [place] [address] [address] [place] [address] Nurse Practitioner Cardiology 04/05/21 Alana Celaya NP [address] [place] [address] [facility] [place], [place] [address] Nurse Practitioner Cardiology 07/17/23 documented as of this encounter
--- OUTSIDE RECORDS SUMMARY | 2024-10-13 11:09 | XMS_ITS | Encounter Summary ---
Author Organization [facility] Address [address] [place] [address] Care Team Providers Care Fine Unhairer Name Role Phone Octavio Gross MD Primary Care Provider Unavaila Kathie Cordova PA-C Primary Care Provider + Kirk [place] MD Primary Care Provider [phone] Ced Victoria MD Unavailable [phone] Virgie Trivedi NP Unavailable [phone] Kirk [place] MD Primary Care Provider [phone] Alana Celaya NP Unavailable [phone] Encounter Details Date Type Department Care Team Description 10/06/2018 [facility] Medical Records [address] [place] [address] Rhys Wynn Social History Tobacco Use Types Packs/Day Years [...] on filedocumented in this encounter Care Teams Fine Unhairer Relationship Specialty Start Date End Date Octavio Gross MD PCP - General Internal Medicine 05/19/18 02/22/20 Kathie Le PA-C PCP - General Internal Medicine 02/23/20 07/11/20 Kirk [place] MD PCP - General Internal Medicine 07/12/20 06/04/21 Kirk [place] MD PCP - General Internal Medicine 06/05/21 Ced Victoria MD [address] [place] [address] [address] [place] [address] Big Data Developer Cardiovascular Disease 04/05/21 Virgie Trivedi NP [address] [place] [address] [address]IVE [address] [place] [address] Nurse Practitioner Cardiology 04/05/21 Alana Celaya NP [address] [place] [address] [facility] [place] [address] Nurse Practitioner Cardiology 07/17/23 documented as of this encounter
--- OUTSIDE RECORDS SUMMARY | 2024-10-13 11:09 | XMS_ITS | Encounter Summary ---
Author Organization [facility] Address [address] [place] [address] Care Team Providers Care Swing Manager Name Role Phone Ced Victoria MD Unavailable [phone] Virgie Trivedi NP Unavailable [phone] Kirk [place] MD Primary Care Provider [phone] Alana Celaya NP Unavailable [phone] Encounter Details Date Type Department Care Team Description 12/09/2023 Orders Only Internal Medicine - [address], [address] [place] [address] Kirk Randle MD [address] [place], [place] [id number] Social History Tobacco Use Types Packs/Day Years [...] on filedocumented in this encounter Care Teams Swing Manager Relationship Specialty Start Date End Date Kirk Randle MD [address] [place] [address] [address] [place] [address] PCP - General Internal Medicine 06/05/21 Ced Victoria MD [address] [place] [address] [address] [place] [address] Assembler And Tester Electronics Cardiovascular Disease 04/05/21 Virgie Trivedi NP [address] [place] [address] [address] [place] [address] Nurse Practitioner Cardiology 04/05/21 Alana Celaya NP [address] [place] [address] [facility] [place], [place] [address] Nurse Practitioner Cardiology 07/17/23 documented as of this encounter
--- OUTSIDE RECORDS SUMMARY | 2024-10-13 11:09 | XMS_ITS | Encounter Summary ---
Author Organization [facility] Address [address] [place] [address] Care Team Providers Care Counseling Department Chair Name Role Phone Ced Victoria MD Unavailable [phone] Virgie Trivedi NP Unavailable [phone] Kirk Randle MD Primary Care Provider [phone] Alana Celaya NP Unavailable [phone] Reason for Visit * Reason Onset Date Comments Provider Call Back 04/24/2024 Encounter Details Date Type Department Care Team Description 04/24/2024 Telephone Internal Medicine - [address], [address] [place], [place] [id number] Kirk Randle MD [address] [place], [place] [id number] Provider Call Back Social History Tobacco Use [...] encounter Miscellaneous Notes * Telephone Encounter - Drakemacarena Milo - 04/24/2024 10:31 AM EDT Spoke with jeana and informed that provider stated as long as is ok with the dentist pt should be ok since is just a cleanning * Telephone Encounter - Corry Lisa - 04/24/2024 9:55 AM EDT Jeana from [facility] called and stated PT is currently waiting to get a teeth cleaning. They received medical clearance to be ok. However he is on blood thinner medication and req an urgent cb to know if he is still ok to be seen. His appt is for 10:30Am. Please advise CB - [phone] documented in this encounter Plan of Treatment Not on file documented as of this encounter Visit Diagnoses Not on filedocumented in this encounter Care Teams Counseling Department Chair Relationship Specialty Start Date End Date Kirk Randle MD [address] [place] [address] [place] [address] PCP - General Internal Medicine 06/05/21 Ced Victoria MD [address] [place] [address] [place] [address] Automation Qa Analyst Cardiovascular Disease 04/05/21 Virgie Trivedi NP [address] [place] [address] [place] [address] Nurse Practitioner Cardiology 04/05/21 Alana Celaya NP [address] [place] [address] [facility] [place] [address] Nurse Practitioner Cardiology 07/17/23 documented as of this encounter
--- OUTSIDE RECORDS SUMMARY | 2024-10-13 11:09 | XMS_ITS | Encounter Summary ---
Author Organization [facility] Address [address] [place] [address] Care Team Providers Care Leasing Director Name Role Phone Octavio Gross MD Primary Care Provider Unavaila Kathie Cordova PA-C Primary Care Provider + Kirk Randle MD Primary Care Provider [phone] Ced Victoria MD Unavailable [phone] Virgie Trivedi NP Unavailable [phone] Kirk Randle MD Primary Care Provider [phone] Alana Celaya NP Unavailable [phone] Reason for Visit * Reason Comments E-prescribe Rx Request Encounter Details Date Type Department Care Team Description 08/28/2018 [facility] Internal Medicine - [address], [address] [place] [address] Octavio Gross MD E-prescribe Rx Request Social [...] encounter Miscellaneous Notes * Telephone Encounter - Edita Davison - 08/28/2018 12:54 PM EST Last ov appt 06/23/2018 / future appt 09/30/2018 documented in this encounter Plan of Treatment Not on file documented as of this encounter Visit Diagnoses Not on filedocumented in this encounter Care Teams Leasing Director Relationship Specialty Start Date End Date Octavio Gross MD PCP - General Internal Medicine 05/19/18 02/22/20 Kathie Le PA-C PCP - General Internal Medicine 02/23/20 07/11/20 iKrk Randle MD PCP - General Internal Medicine 07/12/20 06/04/21 Kirk Randle MD PCP - General Internal Medicine 06/05/21 Ced Victoria MD [address] [place] [address] [address] [place] [address] Nurse Rn Bsn Cardiovascular Disease 04/05/21 Virgie Trivedi NP [address] [place] [address] [address] [place] [address] Nurse Practitioner Cardiology 04/05/21 Alana Celaya NP [address] [place] [address] [facility] [place] [address] Nurse Practitioner Cardiology 07/17/23 documented as of this encounter
--- OUTSIDE RECORDS SUMMARY | 2024-10-13 11:09 | XMS_ITS | Encounter Summary ---
Author Organization [facility] Address [address] [place] [address] Care Team Providers Care Anesthesiologist Assistant Name Role Phone Ced Victoria MD Unavailable [phone] Virgie Trivedi NP Unavailable [phone] Kirk Randle MD Primary Care Provider [phone] Alana Celaya NP Unavailable [phone] Encounter Details Date Type Department Care Team Description 06/04/2022 [facility] Internal Medicine - [address], [address] [place], [place] [phone] Ced Townsend Social History Tobacco Use Types Packs/Day Years [...] on filedocumented in this encounter Care Teams Anesthesiologist Assistant Relationship Specialty Start Date End Date Kirk Randle MD [address] [place] [address] [address] [place] [address] PCP - General Internal Medicine 06/05/21 Ced Victoria MD [address] [place] [address] [address] [place] [address] Boss Miner Cardiovascular Disease 04/05/21 Virgie Trivedi NP [address] [place] [address] [address] [place] [address] Nurse Practitioner Cardiology 04/05/21 Alana Celaya NP [address] [place] [address] [facility] [place] [address] Nurse Practitioner Cardiology 07/17/23 documented as of this encounter
--- OUTSIDE RECORDS SUMMARY | 2024-10-13 11:09 | XMS_ITS | Encounter Summary ---
Author Organization [facility] Address [address] [place] [address] Care Team Providers Care Court Registry Officer Name Role Phone Ced Victoria MD Unavailable [phone] Virgie Trivedi NP Unavailable [phone] Kirk Randle MD Primary Care Provider [phone] Alana Celaya NP Unavailable [phone] Encounter Details Date Type Department Care Team Description 07/16/2022 Home Health Certification Medical Records [address] [place] [address] Social History Tobacco Use Types Packs/Day Years [...] on filedocumented in this encounter Care Teams Court Registry Officer Relationship Specialty Start Date End Date Kirk Randle MD [address] [place] [address] [address] [place], [place] [phone] PCP - General Internal Medicine 06/05/21 Ced Victoria MD [address] [place] [address] [address] [place] [address] Automation Clerk Cardiovascular Disease 04/05/21 Virgie Trivedi NP [address] [place] [address] [address] [place] [address] Nurse Practitioner Cardiology 04/05/21 Alana Celaya NP [address] [place] [address] [facility] [place] [address] Nurse Practitioner Cardiology 07/17/23 documented as of this encounter
--- OUTSIDE RECORDS SUMMARY | 2024-10-13 11:09 | XMS_ITS | Encounter Summary ---
Author Organization [facility] Address [address] [place] [address] Care Team Providers Care Production Illustrator Name Role Phone Ced Victoria MD Unavailable [phone] Virgie Trivedi NP Unavailable [phone] Kirk Randle MD Primary Care Provider [phone] Alana Celaya NP Unavailable [phone] Encounter Details Date Type Department Care Team Description 07/30/2022 Streetcar Repairer Report Medical Records [address] [place] [id number] [place] [address] Social History Tobacco Use Types Packs/Day Years [...] on filedocumented in this encounter Care Teams Production Illustrator Relationship Specialty Start Date End Date Kirk Randle MD [address] [place] [address] [address] [place] [address] PCP - General Internal Medicine 06/05/21 Ced Victoria MD [address] [place] [address] [address] [place] [address] Restaurant Host Cardiovascular Disease 04/05/21 Virgie Trivedi NP [address] [place] [address] [address]IVE [address] [place] [address] Nurse Practitioner Cardiology 04/05/21 Alana Celaya NP [address] [place] [address] [facility] [place] [address] Nurse Practitioner Cardiology 07/17/23 documented as of this encounter
--- OUTSIDE RECORDS SUMMARY | 2024-10-13 11:09 | XMS_ITS | Encounter Summary ---
Author Organization [facility] Address [address] [place] [address] Care Team Providers Care Extra Hand Name Role Phone Ced Victoria MD Unavailable [phone] Virgie Trivedi NP Unavailable [phone] Kirk Randle MD Primary Care Provider [phone] Alana Celaya NP Unavailable [phone] Reason for Visit * Reason Onset Date Comments Faxed Refill 08/28/2022 Encounter Details Date Type Department Care Team Description 08/28/2022 Refill Internal Medicine - [address], [address] [place] [address] Kirk Randle MD [address] [place] [address] Faxed Refill Social History Tobacco Use Types [...] Recorded In the last 10 days, have blake madden been in contact with someone who was confirmed or suspected to have Coronavirus/COVID-19? No / Unsure 08/30/2022 2:01 PM EST documented as of this encounter Miscellaneous Notes * Telephone Encounter - Justine Stephen MA - 08/28/2022 2:19 PM EST Discontinued are you willing to fill? * Telephone Encounter - Shorty Victoria - 08/28/2022 1:54 PM EST Patient would like script to be: E-PRESCRIBED/FAXED TO PHARMACY ([facility] [address] [place] [phone]) When was the patients last office visit in Adult Medicine?: 08/01/22 When was the last time the patient saw their PCP? Same as above Does patient have an upcoming appointment? No (THE MEDICATION IS NOT ON THE MED LIST AND IS IDENTIFIED BELOW): {MED LIST:77195) Med name: KELLEYTOVEN tablet Dosage: 5 MG # of tablets: N/a Local pharmacy with request for 90 -day supply Instructions: Take one tablet by mouth per administration instructions. Did you check the pharmacy information above?: YES Patients current insurance carrier: Payor: [facility] / Plan: [employer]REF HMO [facility] / Product Type: MEDICARE RISK Insurance ID #: No Subscriber Number on File documented in this encounter Plan of Treatment Not on file documented as of this encounter Visit Diagnoses Not on filedocumented in this encounter Care Teams Extra Hand Relationship Specialty Start Date End Date Kirk Randle MD [address] [place] [address] [place] [id number] PCP - General Internal Medicine 06/05/21 Ced Victoria MD [address] [place] [address] [address] [place] [address] Rotary Surface Grinder Cardiovascular Disease 04/05/21 Virgie Trivedi NP [address] [place] [address] [address]IVE [address] [place] [address] Nurse Practitioner Cardiology 04/05/21 Alana Celaya NP [address] [place] [address] [facility] [place] [address] Nurse Practitioner Cardiology 07/17/23 documented as of this encounter
--- OUTSIDE RECORDS SUMMARY | 2024-10-13 11:09 | XMS_ITS | Encounter Summary ---
Author Organization [facility] Address [address] [place] [address] Care Team Providers Care Pole Truck Driver Name Role Phone Ced Victoria MD Unavailable [phone] Virgie Trivedi NP Unavailable [phone] Kirk Randle MD Primary Care Provider [phone] Alana Celaya NP Unavailable [phone] Encounter Details Date Type Department Care Team Description 11/05/2023 Orders Only Medical Records [address] [place] [address] Raffy Gardner MD [address] [address] Social History Tobacco Use Types [...] Date/Time Associated Diagnosis Comments OUTSIDE LAB Routine 08/16/2022 documented in this encounter Results * OUTSIDE LAB (08/16/2022) Raffy Gardner MD FACS LAB documented in this encounter Visit Diagnoses Not on filedocumented in this encounter Care Teams Pole Truck Driver Relationship Specialty Start Date End Date Kirk Randle MD [address] [place] [address] [address] [place] [address] PCP - General Internal Medicine 06/05/21 Ced Victoria MD [address] [place] [address] [address] [place] [address] Application Dba Cardiovascular Disease 04/05/21 Virgie Trivedi NP [address] [place] [address] [address] [place] [address] Nurse Practitioner Cardiology 04/05/21 Alana Celaya NP [address] [place] [address] [facility] [place] [address] Nurse Practitioner Cardiology 07/17/23 documented as of this encounter
--- OUTSIDE RECORDS SUMMARY | 2024-10-13 11:09 | XMS_ITS | Encounter Summary ---
Author Organization [facility] Address [address] [place] [address] Care Team Providers Care Mailroom Clerk Name Role Phone Ced Victoria MD Unavailable [phone] Virgie Trivedi NP Unavailable [phone] Kirk Randle MD Primary Care Provider [phone] Alana Celaya NP Unavailable [phone] Reason for Visit * Reason Onset Date Comments VNA Call 06/19/2021 Encounter Details Date Type Department Care Team Description 06/19/2021 Telephone Internal Medicine - [address], [address] [place], [place] [phone] Kirk Randle MD [address] [place], [place] [id number] VNA Call Social History Tobacco Use Types [...] have Coronavirus / COVID-19? No / Unsure 06/16/2021 10:00 AM EDT documented as of this encounter Miscellaneous Notes * Telephone Encounter - Judi Truong RN - 06/19/2021 10:37 AM EDT FYI, verbal orders given. * Telephone Encounter - Zofia Gomez - 06/19/2021 10:34 AM EDT [facility]NA CALL Which [facility] office is calling? [facility] Full name of caller: Pat Matias 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 social work lecturer Is the caller at the patients home?: NO Reason for call: is asking for verbal order for 1 visit for social work Does caller need an urgent call back? NO Was CONTACT Telephone # obtained above?: YES Fax #: na documented in this encounter Plan of Treatment Not on file documented as of this encounter Visit Diagnoses Not on filedocumented in this encounter Care Teams Mailroom Clerk Relationship Specialty Start Date End Date Kirk Randle MD [address] [place] [address] [place] [address] PCP - General Internal Medicine 06/05/21 Ced Victoria MD [address] [place] [address] [place] [address] Process Development Engineer Cardiovascular Disease 04/05/21 Virgie Trivedi NP [address] [place] [address] [place] [address] Nurse Practitioner Cardiology 04/05/21 Alana Celaya NP [address] [place] [address] [facility] [place] [address] Nurse Practitioner Cardiology 07/17/23 documented as of this encounter
--- OUTSIDE RECORDS SUMMARY | 2024-10-13 11:09 | XMS_ITS | Encounter Summary ---
Author Organization [facility] Address [address] [place] [address] Care Team Providers Care Scouring Train Operator Chief Name Role Phone Ced Victoria MD Unavailable [phone] Virgie Trivedi NP Unavailable [phone] Kirk Randle MD Primary Care Provider [phone] Alana Celaya NP Unavailable [phone] Encounter Details Date Type Department Care Team Description 09/07/2021 Hospital Medical Records [address] [place] [address] [facility] Social History Tobacco Use Types Packs/Day Years [...] on filedocumented in this encounter Care Teams Scouring Train Operator Chief Relationship Specialty Start Date End Date Kirk Randle MD [address] [place] [address] [address] [place] [address] PCP - General Internal Medicine 06/05/21 Ced Victoria MD [address] [place] [address] [address] [place] [address] Healthcare Customer Service Cardiovascular Disease 04/05/21 Virgie Trivedi NP [address] [place] [address] [address] [place] [address] Nurse Practitioner Cardiology 04/05/21 Alana Celaya NP [address] [place] [address] [facility] [place] [address] Nurse Practitioner Cardiology 07/17/23 documented as of this encounter
--- OUTSIDE RECORDS SUMMARY | 2024-10-13 11:09 | XMS_ITS | Encounter Summary ---
Author Organization [facility] Address [address] [place] [address] Care Team Providers Care Telephone Sterilizer Name Role Phone Ced Victoria MD Unavailable [phone] Virgie Trivedi NP Unavailable [phone] Kirk Randle MD Primary Care Provider [phone] Alana Celaya NP Unavailable [phone] Encounter Details Date Type Department Care Team Description 07/23/2022 Energy Conservation Representative Report Medical Records [address] [place] [address] Alejandra Flores MD Social History Tobacco Use Types Packs/Day Years [...] on filedocumented in this encounter Care Teams Telephone Sterilizer Relationship Specialty Start Date End Date Kirk Randle MD [address] [place] [address] [address] [place] [address] PCP - General Internal Medicine 06/05/21 Ced Victoria MD [address] [place] [address] [address] [place] [address] Resource Room Special Education Teacher Cardiovascular Disease 04/05/21 Virgie Trivedi NP [address] [place] [address] [address] [place] [address] Nurse Practitioner Cardiology 04/05/21 Alana Celaya NP [address] [place] [address] [facility] [place] [address] Nurse Practitioner Cardiology 07/17/23 documented as of this encounter
--- OUTSIDE RECORDS SUMMARY | 2024-10-13 11:09 | XMS_ITS | Encounter Summary ---
Author Organization [facility] Address [address] [place] [address] Care Team Providers Care Communication Manager Name Role Phone Ced Victoria MD Unavailable [phone] Virgie Trivedi NP Unavailable [phone] Kirk Randle MD Primary Care Provider [phone] Alana Celaya NP Unavailable [phone] Reason for Visit * Reason Onset Date Comments other 10/01/2022 New found edema Encounter Details Date Type Department Care Team Description 10/01/2022 Telephone Cardio [facility] [address] [place] [address] [address] [place] [address] Ced Victoria MD [facility] [address] [place], [place] [phone] other (New found edema ) Social History Tobacco Use Types Packs/Day [...] encounter Miscellaneous Notes * Telephone Encounter - Ced Victoria MD - 10/01/2022 12:18 PM EST Ok thank you * Telephone Encounter - Shahrzad Peters R.N. - 10/01/2022 10:15 AM EST ABI... Spoke with MIGUEL Chel, she reports some mild edema on the top of his right foot about 2 in area started yesterday, denies weight gain, LS clear, no sob, denies sodium indiscretions. Taking Lasix 20 mg daily. Edema resolves overnight. Hasn't been wearing compression stockings. I recommended wearing compression stockings and keeping feet up as much as possible. I asked her to call if there is weight gain 2 lbs overnight or 4-5 lbs over the course of a week, sob, or worsening edema. I alsoarranged 6 month recall apt for 10/25/22 and mailed an apt reminder to pt. MIGUEL verbalized understanding and expressed gratitude. * Telephone Encounter - Hardeep Villa - 10/01/2022 9:44 AM EST Evelyn from [facility] [phone] is callig stating patient has new edema on right foot, pleasecall. documented in this encounter Plan of Treatment Not on file documented as of this encounter Visit Diagnoses Not on filedocumented in this encounter Care Teams Communication Manager Relationship Specialty Start Date End Date Kirk Randle MD [address] [place] [address] [address] [place], [place] [phone] PCP - General Internal Medicine 06/05/21 Ced Victoria MD [address] [place] [address] [address] [place] [address] Dedicated Intermodal Truck Driver Cardiovascular Disease 04/05/21 Virgie Trivedi, WARNING COORDINATION METEOROLOGIST [address] [facility] [address] [place] [address] Nurse Practitioner Cardiology 04/05/21 Alana Celaya, GILBERTO [address] [place] [address] [facility] [place] [address] Nurse Practitioner Cardiology 07/17/23 documented as of this encounter
--- OUTSIDE RECORDS SUMMARY | 2024-10-13 11:09 | XMS_ITS | Encounter Summary ---
Author Organization [facility] Address [address] [place] [address] Care Team Providers Care Fuel Agent Name Role Phone Ced Victoria MD Unavailable [phone] Virgie Trivedi NP Unavailable [phone] Kirk Randle MD Primary Care Provider [phone] Alana Celaya NP Unavailable [phone] Encounter Details Date Type Department Care Team Description 09/14/2022 Home Health Certification Medical Records [address] [place] [address] Social History Tobacco Use Types Packs/Day Years [...] on filedocumented in this encounter Care Teams Fuel Agent Relationship Specialty Start Date End Date Kirk Randle MD [address] [place] [address] DRIVE [address] [place] [address] PCP - General Internal Medicine 06/05/21 Ced Victoria MD [address] [place] [address] [address] [place] [address] Skidder Operator Cardiovascular Disease 04/05/21 Virgie Trivedi NP [address] [place] [address] [address] [place] [address] Nurse Practitioner Cardiology 04/05/21 Alana Celaya NP [address] [place] [address] [facility] [place] [address] Nurse Practitioner Cardiology 07/17/23 documented as of this encounter
--- OUTSIDE RECORDS SUMMARY | 2024-10-13 11:09 | XMS_ITS | Encounter Summary ---
Author Organization [facility] Address [address] [place] [address] Care Team Providers Care Masking Machine Feeder Name Role Phone Ced Victoria MD Unavailable [phone] Virgie Trivedi NP Unavailable [phone] Kirk Randle MD Primary Care Provider [phone] Alana Celaya NP Unavailable [phone] Encounter Details Date Type Department Care Team Description 09/07/2021 Orders Only Internal Medicine - [address], [address] [place] [address] Kirk Randle MD [address] [place], [place] [phone] Social History Tobacco Use Types Packs/Day Years [...] on filedocumented in this encounter Care Teams Masking Machine Feeder Relationship Specialty Start Date End Date Kirk Randle MD [address] [place] [address] [address] [place] [address] PCP - General Internal Medicine 06/05/21 Ced Victoria MD [address] [place] [address] [address] [place] [address] Bulb Packer Cardiovascular Disease 04/05/21 Virgie Trivedi NP [address] [place] [address] [address] [place] [address] Nurse Practitioner Cardiology 04/05/21 Alana Celaya NP [address] [place] [address] [facility] [place] [address] Nurse Practitioner Cardiology 07/17/23 documented as of this encounter
--- OUTSIDE RECORDS SUMMARY | 2024-10-13 11:09 | XMS_ITS | Encounter Summary ---
Author Organization [facility] Address [address] [place] [address] Care Team Providers Care Latin Teacher Name Role Phone Ced Victoria MD Unavailable [phone] Virgie Trivedi NP Unavailable [phone] Kirk Randle MD Primary Care Provider [phone] Alana Celaya NP Unavailable [phone] Reason for Visit * Reason Onset Date Comments REFERRAL 07/23/2022 Encounter Details Date Type Department Care Team Description 07/23/2022 Telephone Internal Medicine - [address], [address] [place] [address] Kirk Randle MD [address] [place], [place] [id number] REFERRAL Social History Tobacco Use Types Packs/Day [...] encounter Miscellaneous Notes * Telephone Encounter - Paris Beth - 07/23/2022 9:45 AM EST What insurance does the patient have today? [facility] Effective 06/09/09: BCBS will not retro referral requests over 90 [...] insurance must be obtained and registered in [facility] or their referral can not be processed. Is this a retro request? NO. If yes for what date of service do you need the retro referral? N/A Who is calling to request this referral? OFFICE If the caller is not the patient, what is their name? [facility] Ask the patient WHO referred them to this specialty: Patient self referred FIRST and LAST NAME of SPECIALIST PATIENT is seeing: TINO JACKSON What specialty is this? DERMATOLOGY DIAGNOSIS Patient is being seen for (Not a body part or a procedure): UNKNOWN Have you seen this SPECIALIST for this PROBLEM/DX before?NO If YES, when: Have you checked REVIEW or the APPT DESK to see if this referral has already been done or has visits left? YES Is this visit:Initial Visit Address of Specialist:[address] [place] [address] [address] [place] [address] Phone # of Specialist:[phone] Fax #: (if applicable):[phone] Does patient have an appointment scheduled?: YES Date of appointment- (including a retro-request): 07/25/2022 Is this appointment related to: Not MVA, WC or Surgery related documented in this encounter Plan of Treatment Not on file documented as of this encounter Visit Diagnoses Not on filedocumented in this encounter Care Teams Latin Teacher Relationship Specialty Start Date End Date Kirk Randle MD [address] [place] [address] [address] [place] [address] PCP - General Internal Medicine 06/05/21 Ced Victoria MD [address] [place] [address] [address] [place] [address] [employer]phalt [employer]vel Roofer Cardiovascular Disease 04/05/21 Virgie Trivedi NP [address] [place] [address] DRIVE [address] [place] [address] Nurse Practitioner Cardiology 04/05/21 Alana Celaya NP [address] [place] [address] [facility] [place] [address] Nurse Practitioner Cardiology 07/17/23 documented as of this encounter
--- OUTSIDE RECORDS SUMMARY | 2024-10-13 11:09 | XMS_ITS | Encounter Summary ---
Author Organization [facility] Address [address] [place] [address] Care Team Providers Care Building Trades Instructor Name Role Phone Octavio Gross MD Primary Care Provider Unavaila Kathie Cordova PA-C Primary Care Provider + Kirk Randle MD Primary Care Provider [phone] Ced Victoria MD Unavailable [phone] Virgie Trivedi NP Unavailable [phone] Kirk Randle MD Primary Care Provider [phone] Alana Celaya NP Unavailable [phone] Encounter Details Date Type Department Care Team Description 09/17/2018 Release of Information Medical Records [address] [place] [id number] Abstract, Provider Social History Tobacco Use Types [...] on filedocumented in this encounter Care Teams Building Trades Instructor Relationship Specialty Start Date End Date Octavio Gross MD PCP - General Internal Medicine 05/19/18 02/22/20 Kathie Le PA-C PCP - General Internal Medicine 02/23/20 07/11/20 Kirk Randle MD PCP - General Internal Medicine 07/12/20 06/04/21 Kirk Randle MD PCP - General Internal Medicine 06/05/21 Ced Victoria MD [address] [place] [address] [address] [place], [place] [phone] Aviation Consultant Cardiovascular Disease 04/05/21 Virgie Trivedi NP [address] [place] [address] [address] [place], [place] [phone] Nurse Practitioner Cardiology 04/05/21 Alana Celaya NP [address] [place] [address] [facility] [place], [place] [id number] Nurse Practitioner Cardiology 07/17/23 documented as of this encounter
--- OUTSIDE RECORDS SUMMARY | 2024-10-13 11:09 | XMS_ITS | Encounter Summary ---
Author Organization [facility] Address [address] [place] [address] Care Team Providers Care Soft Metals Engraver Hand Name Role Phone Octavio Gross MD Primary Care Provider Unavaila Kathie Cordova PA-C Primary Care Provider + Kirk Randle MD Primary Care Provider [phone] Ced Victoria MD Unavailable [phone] Virgie Trivedi NP Unavailable [phone] Kirk Randle MD Primary Care Provider [phone] Alana Celaya NP Unavailable [phone] Encounter Details Date Type Department Care Team Description 10/13/2018 Hospital Medical Records [address] [place] [id number] [place] [address] Social History Tobacco Use Types Packs/Day Years [...] on filedocumented in this encounter Care Teams Soft Metals Engraver Hand Relationship Specialty Start Date End Date Octavio Gross MD PCP - General Internal Medicine 05/19/18 02/22/20 Kathie Le PA-C PCP - General Internal Medicine 02/23/20 07/11/20 Kirk Randle MD PCP - General Internal Medicine 07/12/20 06/04/21 Kirk Randle MD PCP - General Internal Medicine 06/05/21 Ced Victoria MD [address] [place] [address] [address] [place] [address] Spinner Hydraulic Cardiovascular Disease 04/05/21 Virgie Trivedi NP [address] [place] [address] [address] [place], [place] [phone] Nurse Practitioner Cardiology 04/05/21 Alana Celaya NP [address] [place] [address] [facility] [place], [place] [phone] Nurse Practitioner Cardiology 07/17/23 documented as of this encounter
--- OUTSIDE RECORDS SUMMARY | 2024-10-13 11:09 | XMS_ITS | Clinical Summary ---
Author Organization [facility] Address [address] [place] [address] Care Team Providers Care Engineer Assistant Name Role Phone Ced Victoria MD Unavailable [phone] Virgie Trivedi NP Unavailable Kirk Randle MD Primary Care Provider [phone] Alana Celaya NP Unavailable [phone] Allergies Active Allergy Reactions Severity Noted Date Comments Clopidogrel Rash/Dermatitis 07/26/2010 Medications Medication Sig Dispensed Refills Start Date End Date Status Multiple Vitamins-Minerals (MULTIVITAMIN ADULTS 50+) Tab Take 1 Tablet by mouth daily. 0 Active Hardin-3 Fatty Acids (FISH OIL) 1200 MG Cap Take 1 Capsule by mouth daily. 0 Active Gauze Pads & Dressings (Gauze Dressing) 4 X4 Pads 2 Each by Does not apply route 3 times daily. 200 Each 0 11/02/2021 Active Gauze Bandages (Conforming Rolled Gauze) Misc 1 Each by Does not apply route 3 times daily. 60 Each 0 11/02/2021 Active Collagen Matrix Meshed, Porc, 3X3CM SHEET Apply 1 Each topically 3 times daily. 100 Each 0 11/02/2021 Active acetaminophen (Tylenol) 325 MG tablet Take 2 Tablets by mouth every 6 hours as needed for Pain (mild to moderate pain) for up to 10 days. 80 Tablet 0 12/26/2022 Active warfarin (COUMADIN) 5 MG tablet Take 1 Tablet by mouth See Admin Instructions. May cause heavy bleeding. Take at same time every day. Do not change dietary habits. [facility] directs coumadin instructions 90 Tablet 0 04/03/2023 Active Wound Dressings (GRX Hydrogel Gauze 4X4) Pads Apply 2 Each topically every 30 days. 10 Each 3 05/21/2023 Active Wound Dressings (Tegaderm High Gelling Alginate) Pads Apply 2 Each topically every 30 days. 10 Each 3 05/21/2023 Active Adhesive Tape Tape 1 Each by Does not apply route every 30 days. 2 Each 3 05/21/2023 Active Elastic Bandages & Supports (SAAD Elastic Bandage/E-Z Clips) Misc 1 Each by Does not apply route every 30 days. 3 Each 0 05/21/2023 Active metoprolol (TOPROL-XL) 25 MG 24 hr tabletIndications:I schemic cardiomyopathy,Saroj nary artery disease involving salt river coronary artery of salt river heart without angina pectoris,Atrial fibrillation, unspecified type (HCC) Take 1 Tablet by mouth daily for 360 days. 90 Tablet 3 07/17/2023 Active silver sulfADIAZINE (Silvadene) 1 % cream Apply twice a day for 10 days on the redness 50 g 0 08/22/2023 Active warfarin (Jantoven) 5 MG tablet Take 1 Tablet by mouth See Admin Instructions for 90 days. May cause heavy bleeding. Take at same time every day. Do not change dietary habits. 90 Tablet 1 10/08/2023 Active atorvastatin (LIPITOR) 20 MG tablet TAKE ONE TABLET BY MOUTH EVERY DAY 90 Tablet 2 12/11/2023 Active fluticasone (Flonase Allergy Relief) 50 MCG/ACT nasal sprayIndications:Si nus headache 2 Sprays by Each Nare route daily for 360 days. 16 g 5 05/14/2024 05/09/2025 Active furosemide (LASIX) 20 MG tabletIndications:C hronic venous insufficiency TAKE ONE TABLET BY MOUTH EVERY DAY 90 Tablet 2 06/10/2024 Active Active Problems Problem Noted Date Peripheral arterial disease 07/16/2023 Cardiomyopathy 04/23/2022 Last Assessment & Plan: Last echocardiogram was April 2022. This revealed an LVEF of 45 to 50%. Patient is euvolemic upon exam today he denies exertional symptoms or swelling. He will continue on his current dose of Lasix. We will update a surveillance echocardiogram to further evaluate decline in ejection fraction. As outlined above, patient's metoprolol was changed from tartrate to succinate during today's office visit. I will await echocardiogram results to further evaluate the necessity to titrate GDMT for HFrEF Mitral regurgitation 10/12/2021 Last Assessment & Plan: Patient's mitral insufficiency is actually improved with recovery from the endocarditis. 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 Patient's completed a course of antibiotic therapy. Echocardiography just done showed no vegetation on the mitral valve with 1+ mitral insufficiency. This is an improvement compared to previous studies. Though there is a slight decrease in the overall ejection fraction. Patient is asymptomatic with no signs or symptoms of congestive heart failure Osteoarthritis 12/12/2018 Overview: R knee History of knee replacement, total, righ t 12/12/2018 Varicose veins with pain 05/14/2018 CAD (coronary artery disease) 05/14/2018 Overview: Old MT; Stress test -ve 2010, treated in [facility] in 2003, stents put in. Last Assessment & Plan: Patient continues to denies symptoms reminiscent to those of his prior stenting in 2003. He continues to remain on guideline directed medical therapy of statin, aspirin and metoprolol. He will continue to follow a healthy lifestyle which includes following a low-salt low-fat diet, maintaining a healthy weight and engaging in aerobic exercise 30 minutes a day 4-5 times a week as tolerated. Patient instructed to call 911 and go to the emergency room should he begin to experience chest pain lasting greater than 10 minutes that is not relieved with rest. Atrial fibrillation 05/14/2018 Overview: Jantoven/ warfarin Last Assessment & Plan: Patient presents in atrial fibrillation with slow ventricular response of 50 bpm. He denies palpitations and has been historically asymptomatic while in atrial fibrillation. He continues to be anticoagulated on Coumadin for stroke reduction. LND1NH3-HOGc score of 5 for heart failure, hypertension, age greater than 75 and vascular disease. Educated on risks and benefits of continuing anticoagulation including increased risk for hemorrhage and decreased risk for stroke. Patient understands these risks and agrees to continue. In light of his bradycardia during today's exam as well as recent phone calls from visiting nursing, I have taken the liberty of discontinuing his metoprolol tartrate 25 BID and have ordered him metoprolol succinate 25 mg daily. Patient will continue to monitor for signs of bradycardia such as dizziness,lightheadedness, presyncope or syncope. Chronic venous insufficiency 05/14/2018 Last Assessment & Plan: Patient continues to follow closely with [facility] vascular surgery. Hyperlipidemia 05/14/2018 Last Assessment & Plan: Last lipid profile 1 year ago revealed a total cholesterol 119, triglycerides 89, HDL 47 and LDL of 55. This was at goal of less than 70 in the setting of coronary artery disease. We will update an annual fasting lipid profile to further evaluate lipid control. He will continue on his current dose of Lipitor 20 mg. Hypertension 05/14/2018 Last Assessment & Plan: Blood pressure well controlled during today's exam with a reading of 110/72. He continues with diet and lifestyle modification to help further assist in lowering of blood pressure. He will continue on his current medications. Nontoxic multinodular goiter 12/27/2017 BPH (benign prostatic hyperplasia) 07/30 Diverticulosis 08/24/2016 Immunizations Name Administration Dates Next Due COVID-19 (Moderna) PT Reported 11/08/2020,2020 Influenza (> 6 Months) 07/10/2020 Influenza vaccine high dose age 65 and over 05/11 Pneumoccoccal(Adult) Polysaccharide PPSV23 07/30 Pneumococcal Conjugate PCV-13 06/21/2015 Family History Medical History Relation Name Comments ca kidney Brother Alcohol Abuse Father Leukemia Mother Malignant Melanoma Other Non Hodgkin's lymphoma Other kidney cancer Other Atrial fib Sister 2 Relation Name Status Comments Brother Alive Father Mother Other Sister 1 Alive Sister 2 Alive Social History Tobacco Use Types Packs/Day Years Used Date Smoking Tobacco: Never Passive Smoke Exposure: Never Smokeless Tobacco: Never Tobacco Cessation:Counseling Given: Not Answered Alcohol Use Standard Drinks/Week Comments No 0 [...] file Not on file Not on file Last Filed Vital Signs Vital Sign Reading Time Taken Comments Blood Pressure 149/80 07/09/2024 1:59 PM EDT Pulse 100 07/09/2024 1:59 PM EDT Temperature 36.4 ??C (97.5 ??F) 06/19/2024 9:15 AM ED T Respiratory Rate 18 07/25/2023 2:15 PM EST Oxygen Saturation 98% 06/19/2024 9:15 AM EDT Inhaled Oxygen Concentration - - Weight 98.5 kg (217 lb 3.2 oz) 07/09/2024 1:59 P M EDT Height 190.5 cm (6' 3 ) 07/09/2024 1:59 PM EDT Body Mass Index 27.15 07/09/2024 1:59 PM EDT Plan of Treatment Health Maintenance Due Date Last Done Comments DTAP/TDAP/TD (1 - Tdap) 1959 SHINGLES VACCINE (1 of 2) 01/02/1992 Covid-19 Vaccine (3 - 2022-2 4 season) 2024 11/08/2020, 10/11/2020 INFLUENZA (#1) 2024 07/10/2020, 05/11, 06/11/2018 BMI CHECK/ADVISE 09/09/2024 06/19/2024, 11/2023, 05/14/2024, Additional history exists CHOLESTEROL SCREENING 12/04/2026 12/04/2021 , 12/29/2020, 06/16/2019 PNEUMOCOCCAL VACCINE Completed 07/30/2017, 06/21/20 15 Care Teams Engineer Assistant Relationship Specialty Start Date End Date Kirk Randle MD [address] [place] [address] DRIVE [address] [place] [address] PCP - General Internal Medicine 06/05/21 Ced Victoria MD [address] [place] [address] [address] [place] [address] Line Up Examiner Cardiovascular Disease 04/05/21 Virgie Trivedi, GILBERTO [address] [place] [address] [address] [place] [address] Nurse Practitioner Cardiology 04/05/21 Alana Celaya, GILBERTO [address] [place] [address] [facility] [place] [address] Nurse Practitioner Cardiology 07/17/23
--- OUTSIDE RECORDS SUMMARY | 2024-10-13 11:09 | XMS_ITS | Encounter Summary ---
Author Organization [facility] Address [address] [place] [address] Care Team Providers Care Sandwich Hand Name Role Phone Ced Victoria MD Unavailable [phone] Virgie Trivedi NP Unavailable [phone] Kirk Randle MD Primary Care Provider [phone] Alana Celaya NP Unavailable [phone] Encounter Details Date Type Department Care Team Description 09/11/2021 Sheet Pile Driver Operator Report Medical Records [address] [place] [id number] [place] [address] Social History Tobacco Use Types Packs/Day Years [...] on filedocumented in this encounter Care Teams Sandwich Hand Relationship Specialty Start Date End Date Kirk Randle MD [address] [place] [address] [address] [place] [address] PCP - General Internal Medicine 06/05/21 Ced Victoria MD [address] [place] [address] [address]IVE [address] [place] [address] Cash Clerk Cardiovascular Disease 04/05/21 Virgie Trivedi NP [address] [place] [address] [address] [place], [place] [phone] Nurse Practitioner Cardiology 04/05/21 Alana Celaya NP [address] [place] [address] [facility] [place] [address] Nurse Practitioner Cardiology 07/17/23 documented as of this encounter
--- OUTSIDE RECORDS SUMMARY | 2024-10-13 11:09 | XMS_ITS | Encounter Summary ---
Author Organization [facility] Address [address] [place] [address] Care Team Providers Care Manager Hvac Name Role Phone Ced Victoria MD Unavailable [phone] Virgie Trivedi NP Unavailable [phone] Kirk Randle MD Primary Care Provider [phone] Alana Celaya NP Unavailable [phone] Reason for Visit * Reason Onset Date Comments [facility]NA Call 09/04/2022 Encounter Details Date Type Department Care Team Description 09/04/2022 Telephone Internal Medicine - [address], [address] [place], [place] [phone] Kirk Randle MD [address] [place], [place] [phone] VNA Call Social History Tobacco Use Types [...] encounter Miscellaneous Notes * Telephone Encounter - Lesley Pedraza - 09/05/2022 10:[address] randle this is just an FYI [facility] @ [facility] report patient would doing well and discharged from physical therapy * Telephone Encounter - Shasha June - 09/04/2022 3:50 PM EST [facility] @ [facility] report patient would doing well and discharged from physical therapy FYI documented in this encounter Plan of Treatment Not on file documented as of this encounter Visit Diagnoses Not on filedocumented in this encounter Care Teams Manager Hvac Relationship Specialty Start Date End Date Kirk Randle MD [address] [place] [address] [address] [place] [address] PCP - General Internal Medicine 06/05/21 Ced Victoria MD [address] [place] [address] [place] [address] Cleaning Specialist Cardiovascular Disease 04/05/21 Virgie Trivedi NP [address] [place] [address] [address] [place] [address] Nurse Practitioner Cardiology 04/05/21 Alana Celaya NP [address] [place] [address] [facility] [place] [address] Nurse Practitioner Cardiology 07/17/23 documented as of this encounter
--- OUTSIDE RECORDS SUMMARY | 2024-10-13 11:09 | XMS_ITS | Data Portability ---
Author Organization [facility] [employer] [facility], Main Office Address [address] [place] [address] Care Team Providers Care Lever Miller Name Role Phone BARI AMIN - 2ND FLOOR OTHER Assessment Encounter Date Assessment Date Assessment LastModified by Organization Details LastModified Time 05/23/2021 05/23/202105/23 wbc 7.2, hgb 13.6, plt 262, na 142, k 3.7, creat 0.8, sed rate 24, crp 3.76 [email or web address] Not available 05/23/2021 12:08:48 Plan of Treatment [...] By Organization Details Last Modified Time 05/23/2021 [id number] exam of pt, revi ew of chart, discussion with social work, interventional radiology 50 minutes [email or web address] Not available 05/23/2021 12:09:48 Reason for Referral None Reported. Problems Name Problem SNOMED Code Status Onset Date Resolution Date Notes Provider Name and Address Organization Details Recorded Time Infective endocarditi s 258384553 Active 2020 STACY SULLIVAN [address] [facility], [address], [place], [address], [facility] [employer] 1 08:27:08 Osteoarthri tis 182245786 Active 2020 STACY SULLIVAN [address] [facility], [address], [place], [address], [facility] [employer] 1 08:27:39 History of cerebrovasc ular accident 646657592 Active 2020 STACY SULLIVAN [address], [address], [place], [address], [facility] 08:28:06 Recurrent falls 532396924 Active 2020 STACY SULLIVAN [address], [address], [place], [address], [facility] 1 08:28:20 Pressure ulcer Active 2020 STACY SULLIVAN [address], [address], [place], [address], [employer] 1 08:30:05 Deep venous thrombosis of upper extremity 586818909 Active 2020 STACY SULLIVAN [address], [address], [place], [address], [facility] 1 08:30:52 Multinodula r goiter 000947681 Active 2020 STACY SULLIVAN [address], [address], [place], [address], [facility] 08:32:27 Hypomagnese ezequiel 987350120 Active 2020 STACY SULLIVAN [address], [address], [place], [address], [facility] 1 08:57:53 Asthenia 62624761 Active 2020 Rosenda ferro, [employer] 11:24:32 Osteoarthri tis of left knee joint 1279731697712 09 Active 2018 Feliz Gonzalez MD [address], [address], [place], [address], [facility] 9 15:05:21 Essential hypertensio n 17383800 Active 2018 Feliz Gonzalez MD [address], [address], [place], [address], [facility] 9 15:05:25 Mixed hyperlipide ezequiel 483250000 Active 2018 Feliz Gonzalez MD [address] [facility], [address], [place], [address], [employer] 9 15:05:33 Unsteady gait Active 2018 Feliz Gonzalez MD [address] [facility], [address], [place], [address], [employer] 9 15:05:38 Atrial fibrillatio n 02146689 Active 2018 STACY SULLIVAN [address] [facility], [address], [place], [address], [employer] 9 08:43:44 Problem Notes None recorded. Procedures Surgical History Date Name Laterality Status Provider Name and Address Organization Details Recorded Time percutaneous transluminal coronary angioplasty completed STACY SULLIVAN [address] [facility], [address], [place], [address], [employer] 05/05/2021 08:29:08 Imaging Results None recorded. Procedure Notes None recorded. Medical Equipment None Reported. Allergies Allergen ID Allergen Name Allergen Category Reaction Reaction Severity Criticality Documentation Date Start Date Code Code System Note Provider Name and Address Organization Details Recorded Time 51549 Plavix medicatio n rash severe Not available 10/13/2018 32151 2 RxNorm Not Available Not Available Not [...] % 145 mm[Hg] 73 mm[Hg] Rosenda bower [employer] 1 11:13:36 Date Recorded Heart rate Respiratory rate Body temperature Oxygen saturation Oxygen saturation in Arterial blood by Pulse oximetry Systolic blood pressure Diastolic blood pressure Provider Name and Address Organization Details Last Updated DateTime 1 73 /min 18 /min 97.4 [degF] 93 % 93 % 129 mm[Hg] 89 mm[Hg] HERMINIA DENSON NP [address] [facility], [address], [place], [address], [employer] 14:20:11 Date Recorded Body temperature Oxygen saturation Oxygen saturation in Arterial blood by Pulse oximetry Heart rate Respiratory rate Systolic blood pressure Diastolic blood pressure Provider Name and Address Organization Details Last Updated DateTime 96.6 [degF] 97 % 97 % 89 /min 18 /min 124 mm[Hg] 81 mm[Hg] STACY Weber [address] [facility], [address], [place], [address], [facility] [employer] [facility] 1 11:12:09 Date Recorded Systolic blood pressure Diastolic blood pressure Provider Name and Address Organization Details Last Updated DateTime 05/10/2021 124 mm[Hg] 65 mm[Hg] Feliz Gonzalez MD [address] [facility], [address], [place], [address], [employer] 05/10/2021 12:55:10 Date Recorded Systolic blood pressure Diastolic blood pressure Provider Name and Address Organization Details Last Updated DateTime 05/17/2021 104 mm[Hg] 74 mm[Hg] Feliz Gonzalez MD [address] [facility], [address], [place], [address], [employer] [facility] 05/17/2021 15:20:50 Social History Question Answer Notes LastModified by Organizat ion Details LastModified Time Tobacco Smoking Status Never Smoker Not Available [facility] 07/05/2020 03:13:23 Do You Have An Advance Directive? Yes FULL CODE/use Dialysis/unde cided About Nutrition/use Hydration Information not available 05/05/2021 What Is Your Level Of Alcohol Consumption? Occasional [id number] Information not available 07/05/2020 What Is Your Code Status? Full Code Information not available 05/05/2021 Legal Guardian? No Information not available 05/05/2021 Do You Have A Medical Power Of Self Pay Collector? Yes HCP On File Information not available 05/05/2021 Do You Feel Stressed (tense, Restless, Nervous, Or Anxious, Or Unable To Sleep At Night)? [id number] Information not available 05/05/2021 Has Tobacco Cessation [...] dose or 50 mcg/0.25mL dose 10/11/2020 completed STACY SULLIVAN [address] [facility], [address], [place], [address], [facility] [employer] 05/05/2021 11:09:25 COVID-19, mRNA, LNP-S, PF, 100 mcg/0.5mL dose or 50 mcg/0.25mL dose 11/08/2020 completed STACY SULLIVAN [address] [facility], [address], [place], [address], [facility] [employer] 05/05/2021 11:09:40 influenza, unspecified formulation 09/08/2018 completed Marah Wise [facility] [employer] [facility] 12/19/2018 15:12:21 Past Encounters Encounter ID Performer Location Encounter Start Date Encounter Closed Date Diagnosis/Indication Diagnosis SNOMED-CT Code Diagnosis ICD10 Code Diagnosis Note [id number] Feliz Gonzalez MD [address] [address] 10/10/2018 14:54:06 10/28/2018 16:15:02 Osteoarthritis of left knee joint 6438121653 81595 M17.12 end stage OA now s/p TKR leftfollow ortho recsPT OT eval and treatmonit or for pain control and constipati onmonitor and adjust coumadin for DVT prophylaxi sgiven sub-therap utic INR will add lovenox 40 mg sc qd till theraputic Essential hypertension 69321545 I10 metoprolol 25 mg qdmonitor bp Mixed hyperlipidemia 267 605103 E78.2 simvastati n 40 mg qdcontinue Unsteady gait 414380422 R26.81 PT OT eval and treat [id number] YOHAN KOLOSKI, SENIOR CYTOGENETICS LABORATORY DIRECTOR [facility] [address] [place] [address] 10/13/2018 08:02:37 10/28/2018 16:16:29 Osteoarthritis of left knee joint 8015564494 14403 M17.12 follow ortho recsmonito r and adjust coumadinlo venox 40 mg sc qd till theraputic follow up with ortho and PCP Essential hypertension 80037948 I10 metoprolol 25 mg qdfollow up with PCP Mixed hyperlipidemia 267 990362 E78.2 simvastati n 40 mg qdfollow up with PCP Unsteady gait 569944023 R26.81 follow up with PCP Atrial fibrillation 4943 6004 I48.2 coumadin therapymon itor INRscontin ue lovenox til over 2follow up with cardiology and PCP [id number] STACY SULLIVAN [facility] [address] [place] [address] 05/05/2021 08:21:13 05/10/2021 15:30:51 Infective endocarditis 122186515 I33.0 nafcillin 2 gm IV q 4 hrs with stop date of 05/22/21pro biotic bidPICC line monitoring monitor labs Osteoarthritis 863666698 M15.0 tylenol 650 mg q 4 hrs prnmonitor pain Mixed hyperlipidemia 267 749316 E78.2 simvastati n 20 mg qdmonitor labs Essential hypertension 39018815 I10 metoprolol tartrate 25 mg bidlasix 20 mg qdklor con 20 meq qdmonitor b/p and labs Atrial fibrillation 4943 6004 I48.19 metoprolol tartrate 25 mg bidcoumadi n therapymon itor INRs History of cerebrovascular accident 249312508 Z86.73 metoprolol tartrate 25 mg bidcoumadi n therapyato rvastatin 20 mg qdmonitor Recurrent falls 59552467 2 R29.6 PT/OT eval and treatmonit or for safety Pressure ulcer 500939534 L89.90 multivitam in with mineralsvi tamin C 500 mg qdwound care as orderedmon itor frequently use pressure relief devices Deep venou s thrombosis of upper extremity 072167929 I82.621 coumadin therapymon itor INRs Multinodular goiter 2375 22898 E04.2 noted in historymon itor Hypomagnesemia 034596646 E83.42 magnesium 400 mg qdmonitor labs [id number] STACY SULLIVAN [facility] [address] [address] 05/08/2021 10:39:43 05/11/2021 08:35:04 Infective endocarditis 416919121 I33.0 nafcillin 2 gm IV q 4 hrs with stop date of 05/22/21pro biotic bidPICC line monitoring monitor labs Atrial fibrillation 4943 6004 I48.19 metoprolol tartrate 25 mg bidcoumadi n therapymon itor INRs Essential hypertension 40480249 I10 metoprolol tartrate 25 mg bidlasix 20 mg qdklor con 20 meq qdmonitor b/p and labs [id number] Feliz Gonzalez MD [facility] [address] [address] 05/10/2021 12:53:56 05/17/2021 15:11:21 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 see HPI and above Infective endocarditis 373874018 I33.0 see HPIcontinu ed on nafcillin 2 gm q 4 hours through 05/22add probioticm onitor cbcupdate ID with concerns Pressure ulcer 698526463 L89.90 see wound care notesconti nue treatment Deep venou s thrombosis of upper extremity 940099823 I82.621 RUE DVTlovenox now bridged to coumadinmo nitor INR and titrate dose Osteoarthritis 870033078 M15.0 known at baselinemo nitor for sx controltit rate meds prn Mixed hyperlipidemia 267 330901 E78.2 simvastati n 20 mg qdcontinue d Essential hypertension 10076537 I10 metoprolol 25 mg bidlasix 20 mg qdmonitor bp and need to titrate meds Atrial fibrillation 4943 6004 I48.19 carrying dxmetoprol ol 25 mg bidtitrate coumadin dosemonito r for rate control Recurrent falls 86802933 2 R29.6 PT OT eval and treatmonit or fall risk Asthenia 94130827 R53.1 highly motivated to gain strength and return home [id number] Rosenda Mcgill [facility] [address] [address] 05/11/2021 11:11:13 05/17/2021 15:26:07 Asthenia 71737265 R53.1 pt with fall this amfell from bed to floorno apparent injuriessa fety precaution sPT/OT eval and tx [id number] Feliz Gonzalez MD [facility] [address] [address] 05/17/2021 15:20:07 05/19/2021 15:47:47 Infective endocarditis 183893618 I33.0 nafcillin 2 gm q 4 hours through 05/22 to complete coursemoni tor cbcupdate ID with concernsgo al is discharge on 05/23 Bacterial arthritis 4824 5008 M00.88 see HPI and above Deep venou s thrombosis of upper extremity 739222122 I82.621 RUE DVTmonitor INR and titrate dose Asthenia 19477507 R53.1 improving with therapymov ing towards discharge [id number] HERMINIA DENSON NP [facility] [address] [address] 05/18/2021 14:18:12 05/22/2021 14:35:55 Infective endocarditis 751463728 I33.0 nafcillin 2 gm q 4 hours through 05/22 to complete coursemoni tor cbc - stableupda te ID with caroline al is discharge on 05/23Nsg. working on appt. for IV line removal Bacterial arthritis 4824 5008 M00.88 see HPI and above Deep venou s thrombosis of upper extremity 736878239 I82.621 RUE DVTmonitor INR and titrate dose Asthenia 12316745 R53.1 improving with therapymov ing towards discharge Atrial fibrillation 4943 6004 I48.19 [id number] STACY Weber [facility] [address] [address] 05/23/2021 11:10:46 05/25/2021 11:25:14 Infective endocarditis 683102528 I33.0 ok to dc home with meds and VNA services todayfinis hed nafcillin 2 gm q 4 hours through 05/22pt will not need to have central line flushed daily as he will be having it [facility]. this was confirmed by [facility] onal radiology department where he is having it removedf/u cardiologi st on 05/31f/u with pcp as out pt Bacterial arthritis 4824 5008 M00.88 as above Pressure ulcer 957646105 L89.90 will be followed by [facility] Deep venou s thrombosis of upper extremity 415415647 I82.621 RUE DVTcoumadi n therapeuti cwill have [facility] draw next PT/INR when he is admitted to their service with results sent to PCP Mixed hyperlipidemia 267 535417 E78.2 atorvastat in 20 mg qdf/u pcp Essential hypertension 84278830 I10 metoprolol 25 mg bidlasix 20 mg qdbp normalf/u with pcp Atrial fibrillation 4943 6004 I48.19 known hx ofmetoprol ol 25 mg bidcoumadi n 5 mg qdrate controlled , no bleeding Health Concerns Section Related Observation LastModified by Organization Detai ls LastModified Time None Recorded Concern Status LastModified by Organization Details LastModified Time None Recorded Advance Directives Directive Y: FULL CODE/use dialysis/un decided about nutrition/use hydration Payers Encounter Date Sequence Insurance Name Policy Number Policy Flores Covered Member ID Flores Member ID Guarantor Name 05/10/[address] [facility] - MEDICARE PREFERRED (MEDICARE REPLACEMENT HMO) MJ Flynn [id number] 1 Vladimir Flynn 05/11/[address] [facility] - MEDICARE PREFERRED (MEDICARE REPLACEMENT HMO) MJ Flynn [id number] Vladimir Flynn 05/17/[address] [facility] - MEDICARE PREFERRED (MEDICARE REPLACEMENT HMO) MJ Flynn [id number] Vladimir Flynn 05/18/[address] [facility] - MEDICARE PREFERRED (MEDICARE REPLACEMENT HMO) MJ Flynn [id number] Vladimir Flynn 05/23/[address] [facility] - MEDICARE PREFERRED (MEDICARE REPLACEMENT HMO) MJ Flynn [id number] Vladimir Flynn Notes Date Note Type [...] continued care and therapy Feliz Gonzalez MD [address] [facility], [address], [place], [address], [facility] [employer] 05/10/2021 13:19:34 05/11/2021 text/html Pt being seen [...] 5mg daily and recheck INR Saturday. Rosenda ferro, [facility] [employer] 05/11/2021 12:15:08 05/17/2021 text/html Patient is a 81 yo male resident seen for acute rounding. Completing Ab for endocarditis with potential discharge date of 05/23. Patient on coumadin for a fib with dose adjusted today. Strength and conditioning improving with therapy Feliz Gonzalez MD [address] [facility], [address], [place], [address], [facility] [employer] 05/17/2021 15:26:05 05/18/2021 text/html Vladimir is seen to day for an acute visit.Alert, pleasant, NAD. Uvaldo. abx. tx. well, goal home next . when IV abx. completed.Feels well, no c/o.Working with rehab - good progress. HERMINIA DENSON NP [address] [facility], [address], [place], [address], [facility] [employer] 05/18/2021 15:00:40 05/23/2021 text/html pt seen today fo r discharge summary. Patient presented to [facility] er from [place] (where he had been sent after 2 days in [facility] for rehab) with fever, hypotension [...] are resolving. was sent from there to [facility] for acute [...] no concerns per nursing. STACY Weber [address] [facility], [address], [place], [address], [employer] 05/23/2021 12:09:56
--- OUTSIDE RECORDS SUMMARY | 2024-10-13 11:09 | XMS_ITS | Encounter Summary ---
Author Organization [facility] Address [address] [place] [address] Care Team Providers Care Weed Thinner Name Role Phone Kirk Randle MD Primary Care Provider [phone] Ced Victoria MD Unavailable [phone] Virgie Trivedi VALUATION MANAGER Unavailable [phone] Kirk Randle MD Primary Care Provider [phone] Alana Celaya VALUATION MANAGER Unavailable [phone] Encounter Details Date Type Department Care Team Description 05/23/2021 Primary Teaching Assistant Report Medical Records [address] [place] [id number] [place] [address] Social History Tobacco Use Types Packs/Day Years [...] on filedocumented in this encounter Care Teams Weed Thinner Relationship Specialty Start Date End Date Kirk Randle MD PCP - General Internal Medicine 07/12/20 06/04/21 Kirk Randle MD PCP - General Internal Medicine 06/05/21 Ced Victoria MD [address] [place] [address] [address] [place] [address] Spud Driller Cardiovascular Disease 04/05/21 Virgie Trivedi NP [address] [place] [address] [address] [place], [place] [phone] Nurse Practitioner Cardiology 04/05/21 Alana Celaya NP [address] [place] [address] [facility] [place], [place] [phone] Nurse Practitioner Cardiology 07/17/23 documented as of this encounter
--- OUTSIDE RECORDS SUMMARY | 2024-10-13 11:09 | XMS_ITS | Encounter Summary ---
Author Organization [facility] Address [address] [place] [address] Care Team Providers Care Director Of Channel Marketing Name Role Phone Kirk Randle MD Primary Care Provider [phone] Ced Victoria MD Unavailable [phone] Virgie Trivedi SHANK SANDER Unavailable [phone] Kirk Randle MD Primary Care Provider + [phone] Alana Celaya SHANK SANDER Unavailable [phone] Encounter Details Date Type Department Care Team Description 04/29/2021 SCAN Medical Records [address] [place] [address] Abstract, Provider Social History Tobacco Use Types [...] Date/Time Associated Diagnosis Comments OUTSIDE LAB Routine 04/29/2021 OUTSIDE LAB Routine 04/29/2021 documented in this encounter Results * OUTSIDE LAB (04/29/2021) Provider Default LAB * OUTSIDE LAB (04/29/2021) Provider Default LAB documented in this encounter Visit Diagnoses Not on filedocumented in this encounter Care Teams Director Of Channel Marketing Relationship Specialty Start Date End Date Kirk Randle MD PCP - General Internal Medicine 07/12/20 06/04/21 Kirk Randle MD PCP - General Internal Medicine 06/05/21 Ced Victoria MD [address] [place] [address] [phone] Medicare Interviewer Cardiovascular Disease 04/05/21 Virgie Trivedi NP [address] [place] [address] [phone] Nurse Practitioner Cardiology 04/05/21 Alana Celaya NP [address] [place] [address] [facility] [address] Nurse Practitioner Cardiology 07/17/23 documented as of this encounter
--- OUTSIDE RECORDS SUMMARY | 2024-10-13 11:09 | XMS_ITS | Encounter Summary ---
Author Organization [facility] Address [address] [place] [address] Care Team Providers Care On Air Director Name Role Phone Octavio Gross MD Primary Care Provider Unavaila Kathie Cordova PA-C Primary Care Provider + Kirk Randle MD Primary Care Provider [phone] Ced Victoria MD Unavailable [phone] Virgie Trivedi NP Unavailable [phone] Kirk Randle MD Primary Care Provider [phone] Alana Celaya NP Unavailable [phone] Encounter Details Date Type Department Care Team Description 01/13/2019 Lean Facilitator Report Medical Records [address] [place] [address] Rosalia Ocasio MD Social History Tobacco Use Types Packs/Day [...] on filedocumented in this encounter Care Teams On Air Director Relationship Specialty Start Date End Date Octavio Gross MD PCP - General Internal Medicine 05/19/18 02/22/20 Kathie Le PA-C PCP - General Internal Medicine 02/23/20 07/11/20 Kirk Randle MD PCP - General Internal Medicine 07/12/20 06/04/21 Kirk Randle MD PCP - General Internal Medicine 06/05/21 Cde Victoria MD [address] [place] [address] [address] [place] [address] Unarmed Security Officer Cardiovascular Disease 04/05/21 Virgie Trivedi NP [address] [place] [address] [address] [place], [place] [phone] Nurse Practitioner Cardiology 04/05/21 Alana Celaya NP [address] [place] [address] [facility] [place] [address] Nurse Practitioner Cardiology 07/17/23 documented as of this encounter
--- OUTSIDE RECORDS SUMMARY | 2024-10-13 11:09 | XMS_ITS | Encounter Summary ---
Author Organization [facility] Address [address] [place] [address] Care Team Providers Care Paste Up Artist Name Role Phone Kirk Randle MD Primary Care Provider [phone] Ced Victoria MD Unavailable [phone] Virgie Trivedi MEAT BONER Unavailable [phone] Kirk Randle MD Primary Care Provider + [phone] Alana Celaya MEAT BONER Unavailable [phone] Encounter Details Date Type Department Care Team Description 05/04/2021 Hospital Medical Records [address] [place] [address] Elyssa Randall PA-C Social History Tobacco Use Types Packs/Day [...] on filedocumented in this encounter Care Teams Paste Up Artist Relationship Specialty Start Date End Date Kirk Randle MD PCP - General Internal Medicine 07/12/20 06/04/21 Kirk Randle MD PCP - General Internal Medicine 06/05/21 Ced Victoria MD [address] [place] [address] [address] [place] [address] Police Reserves Commander Cardiovascular Disease 04/05/21 Virgie Trivedi NP [address] [place] [address] [address] [place], [place] [phone] Nurse Practitioner Cardiology 04/05/21 Alana Celaya NP [address] [place] [address] [facility] [place] [address] Nurse Practitioner Cardiology 07/17/23 documented as of this encounter
--- OUTSIDE RECORDS SUMMARY | 2024-10-13 11:09 | XMS_ITS | Encounter Summary ---
Author Organization [facility] Address [address] [place] [address] Care Team Providers Care High Lift Operator Name Role Phone Ced Victoria MD Unavailable [phone] Virgie Trivedi NP Unavailable [phone] Kirk Randle MD Primary Care Provider [phone] Alana Celaya NP Unavailable [phone] Reason for Visit * Reason Onset Date Comments REFERRAL 06/26/2022 Encounter Details Date Type Department Care Team Description 06/26/2022 Telephone Internal Medicine - [address], [address] [place] [address] Kirk Randle MD [address] [place], [place] [id number] REFERRAL Social History Tobacco Use Types Packs/Day [...] * Telephone Encounter - Paris Beth - 07/09/2022 10:14 AM EDT [facility] calling to f/u on referral status. * Telephone Encounter - Ethan Lam - 06/26/2022 11:05 AM EDT What insurance does the patient have today? [facility] Effective 06/09/09: [employer] will not retro referral [...] insurance must be obtained and registered in [facility] or their referral can not be processed. Is this a retro request? YES. If yes for what date of service do you need the retro referral? 04/17/22 Who is calling to request this referral? Proviver office If the caller is not the patient, what is their name? N/A Ask the patient WHO referred them to this specialty: Patient self referred FIRST and LAST NAME of SPECIALIST PATIENT is seeing: Svetlana Mackey What specialty is this? Endo DIAGNOSIS Patient is being seen for (Not a body part or a procedure): Have you seen this SPECIALIST for this PROBLEM/DX before?YES If YES, when: 10/13/20 Have you checked REVIEW or the APPT DESK to see if this referral has already been done or has visits left? YES Is this visit:Follow Up Address of Specialist: [address] [place] [address] Phone # of Specialist: [phone] Ext. [phone] Fax #: (if applicable): [phone] Does patient have an appointment scheduled?: NO Date of appointment- (including a retro-request): 04/17/22 Is this appointment related to: Not MVA, WC or Surgery related documented in this encounter Plan of Treatment Not on file documented as of this encounter Visit Diagnoses Not on filedocumented in this encounter Care Teams High Lift Operator Relationship Specialty Start Date End Date Kirk Randle MD [address] [place] [address] [address] [place] [address] PCP - General Internal Medicine 06/05/21 Ced Victoria MD [address] [place] [address] [address] [place] [address] Pipe Cleaner Cardiovascular Disease 04/05/21 Virgie Trivedi NP [address] [place] [address] [address] [place] [address] Nurse Practitioner Cardiology 04/05/21 Alana Celaya NP [address] [place] [address] [facility] [place] [address] Nurse Practitioner Cardiology 07/17/23 documented as of this encounter
--- OUTSIDE RECORDS SUMMARY | 2024-10-13 11:09 | XMS_ITS | Encounter Summary ---
Author Organization [facility] Address [address] [place] [address] Care Team Providers Care Aviation Boatswain'S Mate Name Role Phone Ced Victoria MD Unavailable [phone] Virgie Trivedi NP Unavailable [phone] Kirk Randle MD Primary Care Provider [phone] Alana Celaya NP Unavailable [phone] Encounter Details Date Type Department Care Team Description 01/03/2024 Handcrew Foreman Report Medical Records [address] [place] [address] Social History Tobacco Use Types Packs/Day Years [...] on filedocumented in this encounter Care Teams Aviation Boatswain'S Mate Relationship Specialty Start Date End Date Kirk Randle MD [address] [place] [address] [address] [place] [address] PCP - General Internal Medicine 06/05/21 Ced Victoria MD [address] [place] [address] [address] [place] [address] Screen Operator Cardiovascular Disease 04/05/21 Virgie Trivedi NP [address] [place] [address] [address] [place] [address] Nurse Practitioner Cardiology 04/05/21 Alana Celaya NP [address] [place] [address] [facility] [place] [address] Nurse Practitioner Cardiology 07/17/23 documented as of this encounter
--- OUTSIDE RECORDS SUMMARY | 2024-10-13 11:09 | XMS_ITS | Encounter Summary ---
Author Organization [facility] Address [address] [place] [address] Care Team Providers Care Taxi Cab Driver Name Role Phone Kirk Randle MD Primary Care Provider [phone] Ced Victoria MD Unavailable [phone] Virgie Trivedi CHEMICAL RECLAMATION EQUIPMENT OPERATOR Unavailable [phone] Kirk Randle MD Primary Care Provider [phone] Alana Celaya CHEMICAL RECLAMATION EQUIPMENT OPERATOR Unavailable [phone] Reason for Visit * Reason Onset Date Comments [facility] Call 05/24/2021 Encounter Details Date Type Department Care Team Description 05/24/2021 Telephone Internal Medicine - [address], [address] [place] [address] Kirk Randle MD [address] [place] [address] [facility] Call Social History Tobacco Use Types [...] encounter Miscellaneous Notes * Telephone Encounter - Jdui Truong RN - 05/24/2021 1:37 PM EDT FYI, verbal orders given. * Telephone Encounter - Elmer Ledesma - 05/24/2021 1:28 PM EDT [facility] CALL Which [facility] office is calling? [email or web address] Full name of caller: Meche 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 A nurse Is the caller at the patients home?: NO Reason for call: need verbal orders half-way, physical and occupational therapy Does caller need an urgent call back? NO Was CONTACT Telephone # obtained above?: YES Fax #: n/a documented in this encounter Plan of Treatment Not on file documented as of this encounter Visit Diagnoses Not on filedocumented in this encounter Care Teams Taxi Cab Driver Relationship Specialty Start Date End Date Kirk Randle MD PCP - General Internal Medicine 07/12/20 06/04/21 Kirk Randle MD PCP - General Internal Medicine 06/05/21 Ced Victoria MD [address] [place] [address] [address] [place] [address] Fiberglass Pipe Covering Supervisor Cardiovascular Disease 04/05/21 Virgie Trivedi NP [address] [place] [address] [address] [place] [address] Nurse Practitioner Cardiology 04/05/21 Alana Celaya NP [address] [place] [address] [facility] [place] [address] Nurse Practitioner Cardiology 07/17/23 documented as of this encounter
--- OUTSIDE RECORDS SUMMARY | 2024-10-13 11:09 | XMS_ITS | Encounter Summary ---
Author Organization [facility] Address [address] [place] [address] Care Team Providers Care Bus Driver Supervisor Name Role Phone Ced Victoria MD Unavailable [phone] Virgie Trivedi NP Unavailable [phone] Kirk Randle MD Primary Care Provider [phone] Alana Celaya NP Unavailable [phone] Encounter Details Date Type Department Care Team Description 08/16/2022 Hospital Medical Records [address] [place] [address] Raffy Gardner MD [address] [id number] Social History Tobacco Use Types [...] suspected to have Coronavirus/COVID-19? No / Unsure 08/09/2022 9:15 AM EST documented as of this encounter Plan of Treatment Not on file documented as of this encounter Visit Diagnoses Not on filedocumented in this encounter Care Teams Bus Driver Supervisor Relationship Specialty Start Date End Date Kirk Randle MD [address] [place] [address] [address] [place] [address] PCP - General Internal Medicine 06/05/21 Ced Victoria MD [address] [place] [address] [address] [place] [address] Cook Chief Cardiovascular Disease 04/05/21 Virgie Trivedi NP [address] [place] [address] [address] [place] [address] Nurse Practitioner Cardiology 04/05/21 Alana Celaya NP [address] [place] [address] [facility] [place] [address] Nurse Practitioner Cardiology 07/17/23 documented as of this encounter
--- OUTSIDE RECORDS SUMMARY | 2024-10-13 11:09 | XMS_ITS | Clinical Summary ---
Author Organization [facility] Address [address] [place] [address] Phone Care Team Providers Care Show Card Letterer Name Role Phone Kirk Randle MD Primary Care Provider [phone] Allergies Active Allergy Reactions Criticality Noted Date Comments Clopidogrel Rash 07/26/2010 Medications Medication Sig Dispensed Refills Start Date End Date Status metoprolol succinate (TOPROL-XL) 25 mg 24 hr tablet TAKE ONE TABLET BY MOUTH EVERY DAY 90 tablet 1 07/21/2024 Active ADHESIVE TAPE TOP 1 each by Not Applicable route. every 30 days. 05/21/2023 Active medical supply, miscellaneous (MISCELLANEOUS MEDICAL SUPPLY MISC) Apply 1 each topically 3 (three) times a day. 11/02/2021 Active medical supply, miscellaneous (MISCELLANEOUS MEDICAL SUPPLY MISC) 1 each by Not Applicable route. every 30 days. 05/21/2023 Active medical supply, miscellaneous (MISCELLANEOUS MEDICAL SUPPLY MISC) 1 each by Not Applicable route 3 (three) times a day. 11/02/2021 Active medical supply, miscellaneous (MISCELLANEOUS MEDICAL SUPPLY MISC) 2 each by Not Applicable route 3 (three) times a day. 11/02/2021 Active multivitamin (MULTIPLE VITAMINS ORAL) Take 1 tablet by mouth 1 (one) time each day. Active OMEGA-3 FATTY ACIDS ORAL Take 1 capsule by mouth 1 (one) time each day. Active miscellaneous medical supply misc Apply 2 each topically. every 30 days. 05/21/2023 Active miscellaneous medical supply misc Apply 2 each topically. every 30 days. 05/21/2023 Active acetaminophen (TYLENOL) 325 mg tablet Take 2 tablets (650 mg total) by mouth every 6 (six) hours if needed for mild pain or moderate pain. for up to 10 days. 12/26/2022 Active fluticasone propionate (FLONASE) 50 mcg/actuation nasal spray Administer 2 sprays into each nostril 1 (one) time each day. for 360 days. 05/14/2024 Active furosemide (LASIX) 20 mg tablet Take 1 tablet (20 mg total) by mouth 1 (one) time each day. 06/10/2024 Active warfarin (COUMADIN) 5 mg tablet Take 1 tablet (5 mg total) by mouth. See Admin Instructions. May cause heavy bleeding. Take at same time every day. Do not change dietary habits. [facility] directs coumadin instructions 04/03/2023 Active warfarin (COUMADIN) 5 mg tablet Take 1 tablet (5 mg total) by mouth. See Admin Instructions for 90 days. May cause heavy bleeding. Take at same time every day. Do not change dietary habits. 10/08/2023 Active atorvastatin (LIPITOR) 20 mg tablet Take 1 tablet (20 mg total) by mouth 1 (one) time each day. 90 tablet 09/18/2024 Active atorvastatin (LIPITOR) 20 mg tablet Take 1 tablet (20 mg total) by mouth 1 (one) time each day. 12/11/2023 5 Discontinue d(Reorder) Active Problems Problem Noted Date Diagnosed Date Peripheral arterial disease 07/16/2023 Cardiomyopathy 04/23/2022 Overview (08/04/2024): Last Assessment & Plan: Last echocardiogram was [...] the necessity to titrate GDMT for HFrEF Assessment & Plan (10/09/2024 5:27 PM EST): Patient with mildly decreased left ventricular ejection fraction on guideline directed therapy titrated for HFrEF Assessment & Plan (09/30/2024 10:48 AM EST): Global hypokinesis EF of 45% on echo done in 2023 with A-fib ,continue Lasix ,warfarin and metoprolol. Orders: CBC and differential; Future Comprehensive metabolic panel; Future Lipid panel with reflex to direct LDL; Future Thyroid stimulating hormone; Future Mitral regurgitation 10/12/2021 Overview (08/04/2024): Last Assessment & Plan: Patient's mitral insufficiency is actually improved with recovery from the endocarditis. 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 He denies palpitations and has been historically asymptomatic while in atrial fibrillation. He continues to be anticoagulated on Coumadin for stroke reduction. [id number] score of 5 for heart failure, hypertension, [...] bradycardia such as dizziness,lightheadedness, presyncope or syncope. Assessment & Plan (10/09/2024 5:27 PM EST): Patient with a history of A-fib chronically anticoagulated with Coumadin for an elevated CHADS2 score. No bleeding issues no symptomatic palpitations no lightheadedness or dizziness no dyspnea. Patient is doing well otherwise. Orders: ECG 12 lead CAD (coronary artery disease) 05/14/2018 Overview (08/04/2024): Old [place]; Stress test -ve 2010, treated in [facility] in 2003, stents put in. Last Assessment [...] minutes that is not relieved with rest. Assessment & Plan (10/09/2024 5:27 PM EST): Patient denies chest pain history coronary disease with prior stenting of the right coronary in 2003 with evidence of a previous myocardial infarction on noninvasive testing no ischemia identified Chronic venous insufficiency 05/14/2018 Overview (08/04/2024): Last Assessment & Plan: Patient continues to follow closely with [facility] vascular surgery. Assessment & Plan (10/09/2024 5:27 PM EST): Chronic lower extremity venous insufficiency with no evidence of skin breakdown or cellulitis The above note was prepared with the help of voice recognition software. Please excuse any grammatical or spelling errors that may have occurred Hyperlipidemia 05/14/2018 Overview (08/04/2024): Last Assessment & Plan: Last lipid profile [...] dose of Lipitor 20 mg. Hypertension 05/14/2018 Overview (08/04/2024): Last Assessment & Plan: Blood pressure well controlled during today's exam with a reading of 110/72. He continues with diet and lifestyle modification to help further assist in lowering of blood pressure. He will continue on his current medications. Assessment & Plan (09/30/2024 10:48 AM EST): Hypertension is under control. 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 BPH (benign prostatic hyperplasia) 07/30/2017 Diverticulosis 08/24/2016 Encounters Date Type Department Care Team Description 10/09/2024 9:50 AM EST Office Visit [facility] Cardiology [facility] [address] [place] [address] Bowen Victoria MD Atrial fibrillation, unspecified type (CMS/HCC) (Primary Dx); Coronary artery disease involving upper [place] coronary artery of upper matt[place]oni heart without angina pectoris; Dilated cardiomyopathy (CMS/HCC); Chronic venous insufficiency 10/07/2024 Telephone Internal Medicine - [address] [phone] Kirk Randle MD Jer - Referral 09/30/2024 9:00 AM EST Office Visit Internal Medicine [address] [address] Kirk Randle MD Primary hypertension (Primary Dx); Cardiomyopathy, unspecified type (CMS/HCC); Hypercholesterolemia 09/18/2024 Telephone [facility] [address] [place] [address] Bowen Victoria MD Med Refill (Atorvastatin) from Last 3 Months Immunizations Name Administration Dates Next Due Influenza trivalent, 0.5mL (Fluad) 65yo and olde r 06/05/2019 Influenza trivalent, 0.5mL, preservative free (Fluarix; FluLaval; Fluzone) ages 6mo and older (Afluria) 3 years and older 07/10/2020 Moderna SARS-CoV-2 COVID-19, mRNA, LNP-S, preservative free 11/08/2020,10/11/2020 Pneumococcal conjugate 13 va lent (Prevnar 13, PCV13) 2mo and older 06/21/2015 Pneumococcal polysaccharide 23 valent (Pneumovax 23) 2yo and older 07/30/2017 Surgical History Surgery Date Site/Laterality Comments CARDIAC CATHETERIZATION PROCEDURE: HISTORICAL CARDIAC CATH KNEE ARTHROSCOPY PROCEDURE: PA ARTHROSCOPY AID TX SPINE&/FX KNEE W/O FIXJ OTHER SURGICAL HISTORY 05/19/2018 Right PROCEDURE: PA ENDOVEN ABLTJ INCMPTNT VEIN XTR LASER 1ST VEIN TOTAL KNEE ARTHROPLASTY 10/07/2018 Right PROCEDURE: HISTORICAL TOTAL KNEE REPLACE; COMMENT: [facility] - Dr. Cazares EYE SURGERY Bilateral PROCEDURE: HISTORICAL EYE SURGERY; COMMENT: cataracts BYPASS GRAFT 08/16/2022 Right PROCEDURE: PA AMPUTATION TOE METATARSOPHALANGEAL JOINT; COMMENT: R 5th toe OTHER SURGICAL HISTORY 08/16/2022 Right PROCEDURE: PA INCISION BONE CORTEX FOOT; COMMENT: R 5th metatarsal OTHER SURGICAL HISTORY 10/23/2022 PROCEDURE: PA SLCTV CATHJ 3RD+ ORD SLCTV ABDL PEL/LXTR BRNCH OTHER SURGICAL HISTORY 10/23/2022 PROCEDURE: X-RAY EXAM OF ARM/LEG ARTERY OTHER SURGICAL HISTORY 10/23/2022 PROCEDURE: ULTRASOUND GUIDANCE FOR VASCULAR AC OTHER SURGICAL HISTORY 07/09/2023 PROCEDURE: PA REVSC OPN/PRQ TIB/RON W/ANGIOPLASTY UNI OTHER SURGICAL HISTORY 07/09/2023 PROCEDURE: ULTRASOUND GUIDANCE FOR VASCULAR AC Medical History Medical History Date Comments Atrial fibrillation (CMS/HCC) DX :Atrial fibrillation (HCC) Coronary artery disease DX:Coron randy artery disease; COMMENT: Old [place]; Stress test -ve 2010, treated in [facility] in 2004, stents put in. Cataracts, bilateral DX:Cataract s, bilateral Diverticulosis DX:Diverticulosi s Hyperlipidemia DX:Hyperlipidemi a Hypertension DX:Hypertension BPH (benign prostatic hyperplasia) 07/30/2017 DX:BPH (benign prostatic hyperplasia) Chronic venous insufficiency 05/14/2018 DX: Chronic venous insufficiency Nontoxic multinodular goiter 12/27/2017 DX: Nontoxic multinodular goiter Varicose veins with pain 05/14/2018 DX:Vari cose veins with pain Osteoarthritis 12/12/2018 DX:Osteoarthriti s; COMMENT: R knee History of knee replacement, total, right 12/12/2018 DX:History of knee replaceme nt, total, right Family History Medical History Relation Name Comments Other: ca kidney Brother Alcohol abuse Father Leukemia Mother Other: Malignant Melanoma Other Other: Non Hodgkin's lymphoma Other Other: kidney cancer Other Other: Atrial fib Sister 1 Relation Name Status Comments Brother Alive Father Mother Other Sister 1 Alive Sister 2 Alive Social History Tobacco Use Types Packs/Day Years Used Date Smoking Tobacco: Never Smokeless Tobacco: Never Alcohol Use Standard Drinks/Week Comments No 0 (1 standard drink = 0.6 oz pur e alcohol) rarely Sex and Gender Information Value Date Recorded Sex Assigned at Not on file Gender Identity Not on file Sexual Orientation Not on file Job Start Date Occupation Industry Not on file Not on file Not on file Obstetrics History Last Filed Vital Signs Vital Sign Reading Time Taken Comments Blood Pressure 122/70 10/09/2024 10:42 AM EST Pulse 67 10/09/2024 10:14 AM EST Temperature 36.8 ??C (98.2 ??F) 09/30/2024 9:15 AM ES T Respiratory Rate - - Oxygen Saturation 96% 10/09/2024 10:14 AM EST Inhaled Oxygen Concentration - - Weight 97.5 kg (215 lb) 10/09/2024 10:14 AM EST Height 190.5 cm (6' 3 ) 10/09/2024 10:14 AM EST Body Mass Index 26.87 10/09/2024 10:14 AM EST Plan of Treatment Upcoming Encounters Date Type Department Care Team (Late st Contact Info) Description 03/01/2025 11:00 AM EDT Office Visit Internal Medicine - [place] [address] [place] [phone] Kirk Randle MD [address] [place] [address] 04/19/2025 10:10 AM EDT Office Visit [facility] [address] [place] [phone] Virgie Trivedi, GILBERTO [address] [place] [address] [place] [address] 07/14/2025 1:00 PM EST Appointment [facility] Ultrasound [address] [facility] [place] [address] Health Maintenance Due Date Last Done Comments DTaP,Tdap,and Td Vaccines (1 - Tdap) 1961 Zoster Vaccines (1 of 2) 01/02/1992 RSV Immunization Patients 60+ Years Old (1 - 1-dose 75+ series) 2017 Social Influencers of Health Screening 08/18/2022 Depression Screening 09/30/2025 09/30/2024 Falls Risk Assessment 09/30/2025 09/30/2024 Hypertension/CHF/CAD Annual BMP Blood Test 09/30/2025 09/30/2024, 05/23/2023 Medicare Annual Wellness Visit 09/30/2025 09/30/2024 Cholesterol Screening (Lipid Panel) 09/30/2029 09/30/2024, 12/04/2021 Pneumococcal Vaccine: 65+ Years Completed 07/30/2017, 06/21/2015 COVID-19 Vaccine Completed 06/08/2024, 02/2023, 07/17/2022, Additional history exists Influenza Vaccine Completed 06/08/2024, , 07/03/2022, Additional history exists HIB Vaccines Aged Out No longer eligi ble based on patient's age to complete this topic HPV Vaccines Aged Out No longer eligi ble based on patient's age to complete this topic Hepatitis A Vaccines Aged Out No long er eligible based on patient's age to complete this topic Hepatitis B Vaccines Aged Out No long er eligible based on patient's age to complete this topic IPV Vaccines Aged Out No longer eligi ble based on patient's age to complete this topic MMR Vaccines Aged Out No longer eligi ble based on patient's age to complete this topic Meningococcal ACWY Vaccine Aged Out N o longer eligible based on patient's age to complete this topic RSV Immunization Patients Under 20 months Aged Out No longer eligible based on patient's age to complete this topic Varicella Vaccines Aged Out No longer eligible based on patient's age to complete this topic Procedures Procedure Name Priority Date/Time Associated Diagnosis Comments ECG 12-LEAD Routine 10/09/2024 10:25 AM EST Atrial fibrillation, unspecified type (CMS/HCC) CBC WITH AUTO DIFFERENTIAL Routine 09/30/2024 10:13 AM EST Cardiomyopathy, unspecified type (CMS/HCC) Primary hypertension Hypercholesterolemi a THYROID STIMULATING HORMONE Routine 09/30/2024 10:13 AM EST Cardiomyopathy, unspecified type (CMS/HCC) Primary hypertension Hypercholesterolemi a LIPID PANEL WITH REFLEX TO DIRECT LDL Routine 09/30/2024 10:13 AM EST Cardiomyopathy, unspecified type (CMS/HCC) Primary hypertension Hypercholesterolemi a COMPREHENSIVE METABOLIC PANEL Routine 09/30/2024 10:13 AM EST Cardiomyopathy, unspecified type (CMS/HCC) Primary hypertension Hypercholesterolemi a CBC AND DIFFERENTIAL Routine 09/30/2024 10:13 AM EST Cardiomyopathy, unspecified type (CMS/HCC) Primary hypertension Hypercholesterolemi a from Last 3 Months Results * ECG 12 lead (10/09/2024 10:25 AM EST) Ventricular Rate ECG 49 BPM GEMUSE Atrial Rate 51 BPM GEMUSE QRS Duration 94 ms GEMUSE Q-T Interval 418 ms GEMUSE QTc 377 ms GEMUSE R Swe[place] 66 degrees GEMUSE T Sweetser -5 degrees GEMUSE ECG Interpretation Atrial fibrillation with slow ventricular response Possible Inferior infarct (cited on or before 02-APR-2021) Abnormal ECG When compared with ECG of 24-OCT-2022 16:17, QT has shortened Confirmed by Kathya VICTORIA, BOWEN ([id number]) on 10/09/2024 5:06:39 PM GEMUSE 10/09/2024 10:2 5 AM EST 10/09/2024 5:06 PM EST Bowen Victoria MD ECG ORDERABLES KENYON * Lipid panel with reflex to direct LDL (09/30/2024 10:13 AM EST) Cholesterol 117 0 - 200 mg/dL LAB CHEMISTRY METHOD 09/30/2024 1:14 PM EST [facility] Triglycerides 77 0 - 150 mg/dL LAB CHEMISTRY METHOD 09/30/2024 1:14 PM EST [facility] HDL 48 >=40 mg/dL LAB CHEMISTRY METHOD 09/30/2024 1:14 PM EST [facility] LDL Calculated 54 0 - 100 mg/dL LAB CHEMISTRY METHOD 09/30/2024 1:14 PM EST [facility] VLDL Cholesterol Ric 15.4 mg/dL LAB CHEMISTRY METHOD 09/30/2024 1:14 PM [facility] Non HDL Chol. (LDL+VLDL) 69 <145 mg/dL LAB CHEMISTRY METHOD 09/30/2024 1:14 PM [facility] Chol/HDL Ratio 2.4 0.0 - 4.4 LAB CHEMISTRY METHOD 09/30/2024 1:14 PM [facility] Blood Venous blood specimen / Unknown Venipuncture / Unknown 09/30/2024 10:13 AM EST 09/30/2024 11:01 AM EST Kirk Randle MD LAB BLOOD ORDERABLES [facility] [address] [place] [address], * (ABNORMAL) CBC auto differential (09/30/2024 10:13 AM EST) WBC 9.6 4.8 - 10.8 K/mcL LAB HEMETOLOGY METHOD 09/30/2024 11:30 AM EST [facility] RBC 5.30 4.50 - 5.50 M/mcL LAB HEMETOLOGY METHOD 09/30/2024 11:30 AM [facility] Hemoglobin 16.1 13.5 - 17.5 g/dL LAB HEMETOLOGY METHOD 09/30/2024 11:30 AM [facility] Hematocrit 50.0 42.0 - 54.0 % LAB HEMETOLOGY METHOD 09/30/2024 11:30 AM [facility] MCV 95.1 79.0 - 98.0 FL LAB HEMETOLOGY METHOD 09/30/2024 11:30 AM [facility] MCH 30.6 27.0 - 32.0 pcg LAB HEMETOLOGY METHOD 09/30/2024 11:30 AM [facility] MCHC 32.2 32.0 - 37.0 g/dL LAB HEMETOLOGY METHOD 09/30/2024 11:30 AM [facility] RDW 13.3 11.0 - 15.0 % LAB HEMETOLOGY METHOD 09/30/2024 11:30 AM [facility] Platelets 227 130 - 400 K/mcL LAB HEMETOLOGY METHOD 09/30/2024 11:30 AM [facility] MPV 11.8(H) 7.0 - 11.0 FL LAB HEMETOLOGY METHOD 09/30/2024 11:30 AM [facility] NRBC 0.0 <1.0 % LAB HEMETOLOGY METHOD 09/30/2024 11:30 AM [facility] NRBC Absolute 0.00 <0.10 K/mcL LAB HEMETOLOGY METHOD 09/30/2024 11:30 AM [facility] Neutrophils Relative 67.5 % LAB HEMETOLOGY METHOD 09/30/2024 11:30 AM [facility] Lymphocytes Relative 20.8 % LAB HEMETOLOGY METHOD 09/30/2024 11:30 AM [facility] Monocytes Relative 9.0 % LAB HEMETOLOGY METHOD 09/30/2024 11:30 AM [facility] Eosinophils Relative 1.9 % LAB HEMETOLOGY METHOD 09/30/2024 11:30 AM [facility] Basophils Relative 0.4 % LAB HEMETOLOGY METHOD 09/30/2024 11:30 AM [facility] Immature Granulocytes Relative 0.4 % LAB HEMETOLOGY METHOD 09/30/2024 11:30 AM EST [facility] Neutrophils Absolute 6.48 1.50 - 7.00 K/mcL LAB HEMETOLOGY METHOD 09/30/2024 11:30 AM EST [facility] Lymphocytes Absolute 2.00 1.00 - 5.00 K/mcL LAB HEMETOLOGY METHOD 09/30/2024 11:30 AM [facility] Monocytes Absolute 0.86 0.20 - 1.00 K/mcL LAB HEMETOLOGY METHOD 09/30/2024 11:30 AM EST [facility] Eosinophils Absolute 0.18 0.00 - 0.50 K/mcL LAB HEMETOLOGY METHOD 09/30/2024 11:30 AM EST [facility] Basophils Absolute 0.04 0.00 - 0.20 K/mcL LAB HEMETOLOGY METHOD 09/30/2024 11:30 AM [facility] Immature Granulocytes Absolute 0.04(H) 0.00 - 0.03 K/mcL LAB HEMETOLOGY METHOD 09/30/2024 11:30 AM EST [facility] Blood Venous blood specimen / Unknown Venipuncture / Unknown 09/30/2024 10:13 AM EST 09/30/2024 11:04 AM EST Kirk Randle MD LAB BLOOD ORDERABLES [facility] [address] [phone] * Thyroid stimulating hormone (09/30/2024 10:13 AM EST) TSH 3.07 0.40 - 4.00 mcIU/mL LAB CHEMISTRY METHOD 09/30/2024 12:21 PM [facility] Blood Venous blood specimen / Unknown Venipuncture / Unknown 09/30/2024 10:13 AM EST 09/30/2024 11:01 AM EST Kirk Randle MD LAB BLOOD ORDERABLES [facility] [address] [place] [address], * (ABNORMAL) Comprehensive metabolic panel (09/30/2024 10:13 AM EST) [facility] Sodium 140 133 - 145 mmol/L LAB CHEMISTRY METHOD 09/30/2024 1:14 PM [facility] Potassium 4.2 3.5 - 5.5 mmol/L LAB CHEMISTRY METHOD 09/30/2024 1:14 PM [facility] Chloride 106 96 - 110 mmol/L LAB CHEMISTRY METHOD 09/30/2024 1:14 PM [facility] CO2 27 21 - 32 mmol/L LAB CHEMISTRY METHOD 09/30/2024 1:14 PM [facility] Anion Gap 7 3 - 11 LAB CHEMISTRY METHOD 09/30/2024 1:14 PM [facility] Glucose 92 70 - 100 mg/dL LAB CHEMISTRY METHOD 09/30/2024 1:14 PM [facility] BUN 27(H) 5 - 25 mg/dL LAB CHEMISTRY METHOD 09/30/2024 1:14 PM [facility] Creatinine 1.23 0.70 - 1.30 mg/dL LAB CHEMISTRY METHOD 09/30/2024 1:14 PM [facility] eGFR 59(L) >=60 mL/min/1. 73m2 LAB CHEMISTRY METHOD 09/30/2024 1:14 PM [facility] Comment:Calculation based on the??Chronic Kidney Disease Epidemiology Collaboration (CKD-EPI) equation refit??without adjustment for race. BUN/Creatinine Ratio 22.0 LAB CHEMISTRY METHOD 09/30/2024 1:14 PM [facility] Calcium 9.9 8.5 - 10.5 mg/dL LAB CHEMISTRY METHOD 09/30/2024 1:14 PM [facility] AST (SGOT) 42 10 - 42 unit/L LAB CHEMISTRY METHOD 09/30/2024 1:14 PM [facility] ALT (SGPT) 35 10 - 60 unit/L LAB CHEMISTRY METHOD 09/30/2024 1:14 PM [facility] Alkaline Phosphatase 97 42 - 121 unit/L LAB CHEMISTRY METHOD 09/30/2024 1:14 PM [facility] Total Protein 7.1 6.0 - 8.0 g/dL LAB CHEMISTRY METHOD 09/30/2024 1:14 PM [facility] Albumin 4.0 3.2 - 5.0 g/dL LAB CHEMISTRY METHOD 09/30/2024 1:14 PM [facility] Total Bilirubin 1.2 0.0 - 1.4 mg/dL LAB CHEMISTRY METHOD 09/30/2024 1:14 PM [facility] Blood Venous blood specimen / Unknown Venipuncture / Unknown 09/30/2024 10:13 AM EST 09/30/2024 11:01 AM EST Kirk Randle MD LAB BLOOD ORDERABLES [facility] [address] [place] [address], from Last 3 Months Advance Directives Documents on File Type Date Recorded Patient Kinesiology Internship Expl anation Health Care Decision (hx) 07/09/2023 AD CRAFT DIRECTIVE Health Care Decision (hx) 07/09/2023 AD CRAFT DIRECTIVE Health Care Decision (hx) 07/09/2023 AD CRAFT DIRECTIVE Health Care Decision (hx) 05/13/2021 AD CRAFT DIRECTIVE Health Care Decision (hx) 05/13/2021 AD CRAFT DIRECTIVE Health Care Decision (hx) 05/13/2021 AD CRAFT DIRECTIVE Health Care Decision (hx) 05/13/2021 AD CRAFT DIRECTIVE Health Care Decision (hx) 05/13/2021 AD CRAFT DIRECTIVE Health Care Decision (hx) 05/13/2021 AD CRAFT DIRECTIVE Health Care Decision (hx) 05/13/2021 AD CRAFT DIRECTIVE Health Care Decision (hx) 05/13/2021 AD CRAFT DIRECTIVE Health Care Decision (hx) 05/13/2021 AD CRAFT DIRECTIVE Health Care Decision (hx) 05/13/2021 AD CRAFT DIRECTIVE Health Care Decision (hx) 05/13/2021 AD CRAFT DIRECTIVE Health Care Decision (hx) 05/13/2021 AD CRAFT DIRECTIVE Health Care Decision (hx) 05/13/2021 AD CRAFT DIRECTIVE Health Care Decision (hx) 05/13/2021 AD CRAFT DIRECTIVE Health Care Decision (hx) 05/13/2021 AD CRAFT DIRECTIVE Health Care Decision (hx) 05/13/2021 AD CRAFT DIRECTIVE Health Care Decision (hx) 05/13/2021 AD CRAFT DIRECTIVE Health Care Decision (hx) 05/13/2021 AD CRAFT DIRECTIVE Health Care Decision (hx) 05/13/2021 AD CRAFT DIRECTIVE Health Care Decision (hx) 05/13/2021 AD CRAFT DIRECTIVE Health Care Decision (hx) 04/17/2021 AD CRAFT DIRECTIVE Health Care Decision (hx) 04/17/2021 AD CRAFT DIRECTIVE Health Care Decision (hx) 04/17/2021 AD CRAFT DIRECTIVE Health Care Decision (hx) 04/17/2021 AD CRAFT DIRECTIVE Health Care Decision (hx) 04/17/2021 AD CRAFT DIRECTIVE Health Care Decision (hx) 04/17/2021 AD CRAFT DIRECTIVE Health Care Decision (hx) 04/17/2021 AD CRAFT DIRECTIVE Health Care Decision (hx) 04/17/2021 AD CRAFT DIRECTIVE Health Care Decision (hx) 04/17/2021 AD CRAFT DIRECTIVE Health Care Decision (hx) 04/17/2021 AD CRAFT DIRECTIVE Health Care Decision (hx) 04/17/2021 AD CRAFT DIRECTIVE Health Care Decision (hx) 04/17/2021 AD CRAFT DIRECTIVE Health Care Decision (hx) 04/17/2021 AD CRAFT DIRECTIVE Health Care Decision (hx) 04/17/2021 AD CRAFT DIRECTIVE Health Care Decision (hx) 04/17/2021 AD CRAFT DIRECTIVE Health Care Decision (hx) 04/17/2021 AD CRAFT DIRECTIVE Health Care Decision (hx) 04/17/2021 AD CRAFT DIRECTIVE Health Care Decision (hx) 04/17/2021 AD CRAFT DIRECTIVE Health Care Decision (hx) 04/17/2021 AD CRAFT DIRECTIVE Health Care Decision (hx) 04/17/2021 AD CRAFT DIRECTIVE Health Care Decision (hx) 04/15/2021 AD CRAFT DIRECTIVE Health Care Decision (hx) 04/15/2021 AD CRAFT DIRECTIVE Health Care Decision (hx) 04/05/2021 AD CRAFT DIRECTIVE Health Care Decision (hx) 03/28/2021 AD CRAFT DIRECTIVE Care Teams Show Card Letterer Relationship Specialty Start Date End Date Kirk Randle MD [address] [place] [address] PCP - General Internal Medicine 07/12/20
--- OUTSIDE RECORDS SUMMARY | 2024-10-13 11:09 | XMS_ITS | Encounter Summary ---
Author Organization [facility] Address [address] [place] [address] Care Team Providers Care Ekg Tech Name Role Phone Kirk Randle MD Primary Care Provider [phone] Ced Victoria MD Unavailable [phone] Virgie Trivedi COMPLIANCE MONITOR Unavailable [phone] Kirk Randle MD Primary Care Provider [phone] Alana Celaya COMPLIANCE MONITOR Unavailable [phone] Encounter Details Date Type Department Care Team Description 05/08/2021 Hospital Medical Records [address] [place] [id number] [place] [address] Social History Tobacco Use Types Packs/Day Years [...] on filedocumented in this encounter Care Teams Ekg Tech Relationship Specialty Start Date End Date Kirk Randle MD PCP - General Internal Medicine 07/12/20 06/04/21 Kirk Randle MD PCP - General Internal Medicine 06/05/21 Ced Victoria MD [address] [place] [address] [address] [place], [place] [phone] Melt Superintendant Cardiovascular Disease 04/05/21 Virgie Trivedi NP [address] [place] [address] [address] [place], [place] [phone] Nurse Practitioner Cardiology 04/05/21 Alana Celaya NP [address] [place] [address] Dr [facility] [place] [address] Nurse Practitioner Cardiology 07/17/23 documented as of this encounter
--- OUTSIDE RECORDS SUMMARY | 2024-10-13 11:10 | XMS_ITS | Encounter Summary ---
Author Organization [facility] Address [address] [place] [address] Care Team Providers Care Piper Helper Name Role Phone Ced Victoria MD Unavailable [phone] Virgie Trivedi NP Unavailable [phone] Kirk Randle MD Primary Care Provider [phone] Alana Celaya NP Unavailable [phone] Encounter Details Date Type Department Care Team Description 12/01/2021 Orders Only Internal Medicine - [address], [address] [place] [address] Kirk Randle MD [address] [place], [place] [id number] Social History Tobacco Use Types Packs/Day Years [...] suspected to have Coronavirus/COVID-19? No / Unsure 12/04/2021 10:40 AM EDT documented as of this encounter Plan of Treatment Not on file documented as of this encounter Visit Diagnoses Not on filedocumented in this encounter Care Teams Piper Helper Relationship Specialty Start Date End Date Kirk Randle MD [address] [place] [address] [address] [place] [address] PCP - General Internal Medicine 06/05/21 Ced Victoria MD [address] [place] [address] [address] [place] [address] Patternmaker Plaster And Plastic Cardiovascular Disease 04/05/21 Virgie Trivedi NP [address] [place] [address] [address] [place] [address] Nurse Practitioner Cardiology 04/05/21 Alana Celaya NP [address] [place] [address] Dr [facility] [place] [address] Nurse Practitioner Cardiology 07/17/23 documented as of this encounter
--- OUTSIDE RECORDS SUMMARY | 2024-10-13 11:10 | XMS_ITS | Encounter Summary ---
Author Organization [facility] Address [address] [place] [address] Care Team Providers Care Unit Secretary Name Role Phone Octavio Gross MD Primary Care Provider Unavaila Kathie Cordova PA-C Primary Care Provider + Kirk Randle MD Primary Care Provider [phone] Ced Victoria MD Unavailable [phone] Virgie Trivedi NP Unavailable [phone] Kirk Randle MD Primary Care Provider [phone] Alana Celaya NP Unavailable [phone] Encounter Details Date Type Department Care Team Description 07/17/2018 Transfer Records Medical Records [address] [place] [address] Abstract, Provider Social History Tobacco Use Types [...] on filedocumented in this encounter Care Teams Unit Secretary Relationship Specialty Start Date End Date Octavio Gross MD PCP - General Internal Medicine 05/19/18 02/22/20 Kathie Le PA-C PCP - General Internal Medicine 02/23/20 07/11/20 Kirk Randle MD PCP - General Internal Medicine 07/12/20 06/04/21 Kirk Randle MD PCP - General Internal Medicine 06/05/21 Ced Victoria MD [address] [place] [address] [address] [place] [address] Ccie Cardiovascular Disease 04/05/21 Virgie Trivedi NP [address] [place] [address] [address] [place] [address] Nurse Practitioner Cardiology 04/05/21 Alana Celaya NP [address] [place] [address] Dr [facility] [place], [place] [phone] Nurse Practitioner Cardiology 07/17/23 documented as of this encounter
--- OUTSIDE RECORDS SUMMARY | 2024-10-13 11:10 | XMS_ITS | Encounter Summary ---
Author Organization [facility] Address [address] [place] [address] Care Team Providers Care Conveyor System Dispatcher Name Role Phone Ced Victoria MD Unavailable [phone] Virgie Trivedi NP Unavailable [phone] Kirk Randle MD Primary Care Provider [phone] Alana Celaya NP Unavailable [phone] Encounter Details Date Type Department Care Team Description 10/19/2022 Web Engineer Report Medical Records [address] [place] [address] Social History Tobacco Use Types Packs/Day Years [...] suspected to have Coronavirus/COVID-19? No / Unsure 10/22/2022 2:30 PM EST documented as of this encounter Plan of Treatment Not on file documented as of this encounter Visit Diagnoses Not on filedocumented in this encounter Care Teams Conveyor System Dispatcher Relationship Specialty Start Date End Date Kirk Randle MD [address] [place] [address] [address] [place] [address] PCP - General Internal Medicine 06/05/21 Ced Victoria MD [address] [place] [address] [address] [place] [address] Iron Melter Cardiovascular Disease 04/05/21 Virgie Trivedi NP [address] [place] [address] [address] [place] [address] Nurse Practitioner Cardiology 04/05/21 Alana Celaya NP [address] [place] [address] Dr [facility] [place] [address] Nurse Practitioner Cardiology 07/17/23 documented as of this encounter
--- OUTSIDE RECORDS SUMMARY | 2024-10-13 11:10 | XMS_ITS | Encounter Summary ---
Author Organization [facility] Address [address] [place] [address] Care Team Providers Care Director Regulatory Affairs Name Role Phone Ced Victoria MD Unavailable [phone] Virgie Trivedi NP Unavailable [phone] Kirk Randle MD Primary Care Provider [phone] Alana Celaya NP Unavailable [phone] Encounter Details Date Type Department Care Team Description 12/25/2021 Firer Diesel Locomotive Report Medical Records [address] [place] [id number] [place] [address] Social History Tobacco Use Types Packs/Day Years [...] filedocumented in this encounter Care Teams Director Regulatory Affairs Relationship Specialty Start Date End Date Kirk Randle MD [address] [place] [address] [address] [place] [address] PCP - General Internal Medicine 06/05/21 Ced Victoria MD [address] [place] [address] [address] [place] [address] Interventional Radiology Rn Cardiovascular Disease 04/05/21 Virgie Trivedi NP [address] [place] [address] [address] [place] [address] Nurse Practitioner Cardiology 04/05/21 Alana Celaya NP [address] [place] [address] [facility] [place] [address] Nurse Practitioner Cardiology 07/17/23 documented as of this encounter
--- OUTSIDE RECORDS SUMMARY | 2024-10-13 11:10 | XMS_ITS | Encounter Summary ---
Author Organization [facility] Address [address] [place] [address] Care Team Providers Care Furniture Builder Name Role Phone Ced Victoria MD Unavailable [phone] Virgie Trivedi NP Unavailable [phone] Kirk Randle MD Primary Care Provider [phone] Alana Celaya NP Unavailable [phone] Encounter Details Date Type Department Care Team Description 01/12/2023 Home Health Certification Medical Records [address] [place] [address] Social History Tobacco Use Types Packs/Day Years [...] suspected to have Coronavirus/COVID-19? No / Unsure 01/08/2023 12:47 PM EDT documented as of this encounter Plan of Treatment Not on file documented as of this encounter Visit Diagnoses Not on filedocumented in this encounter Care Teams Furniture Builder Relationship Specialty Start Date End Date Kirk Randle MD [address] [place] [address] [address] [place] [address] PCP - General Internal Medicine 06/05/21 Ced Victoria MD [address] [place] [address] [address] [place] [address] Senior Project Architect Cardiovascular Disease 04/05/21 Virgie Trivedi NP [address] [place] [address] [address] [place] [address] Nurse Practitioner Cardiology 04/05/21 Alana Celaya NP [address] [place] [address] [facility] [place] [address] Nurse Practitioner Cardiology 07/17/23 documented as of this encounter
--- OUTSIDE RECORDS SUMMARY | 2024-10-13 11:10 | XMS_ITS | Encounter Summary ---
Author Organization [facility] Address [address] [place] [address] Care Team Providers Care Adult And Pediatric Neurologist Name Role Phone Ced Victoria MD Unavailable [phone] Virgie Trivedi NP Unavailable [phone] Kirk Randle MD Primary Care Provider [phone] Alana Celaya NP Unavailable [phone] Encounter Details Date Type Department Care Team Description 07/17/2021 Site Administrator Report Medical Records [address] [place] [id number] [place] [address] Social History Tobacco Use Types Packs/Day Years [...] have Coronavirus / COVID-19? No / Unsure 07/18/2021 9:50 AM EST documented as of this encounter Plan of Treatment Not on file documented as of this encounter Visit Diagnoses Not on filedocumented in this encounter Care Teams Adult And Pediatric Neurologist Relationship Specialty Start Date End Date Kirk Randle MD [address] [place] [address] [address] [place] [address] PCP - General Internal Medicine 06/05/21 Ced Victoria MD [address] [place] [address] [address] [place] [address] Cone Runner Cardiovascular Disease 04/05/21 Virgie Trivedi NP [address] [place] [address] [address] [place] [address] Nurse Practitioner Cardiology 04/05/21 Alana Celaya NP [address] [place] [address] Dr [facility] [place] [address] Nurse Practitioner Cardiology 07/17/23 documented as of this encounter
--- OUTSIDE RECORDS SUMMARY | 2024-10-13 11:10 | XMS_ITS | Encounter Summary ---
Author Organization [facility] Address [address] [place] [address] Care Team Providers Care Boat Repairer Name Role Phone Ced Victoria MD Unavailable [phone] Virgie Trivedi NP Unavailable [phone] Kirk Randle MD Primary Care Provider [phone] Alana Celaya NP Unavailable [phone] Reason for Visit * Reason Onset Date Comments VNA Call 11/22/2021 Encounter Details Date Type Department Care Team Description 11/22/2021 Telephone Internal Medicine - [address], [address] [place], [place] [phone] Kirk Randle MD [address] [place], [place] [phone] VNA Call Social History Tobacco Use Types [...] have Coronavirus / COVID-19? No / Unsure 11/06/2021 2:49 PM EST documented as of this encounter Miscellaneous Notes * Telephone Encounter - Jaquelin Gaytan L.P.N. - 11/23/2021 1:32 PM EDT PLEASE REVIEW AND SIGN FYLulu Dubose coumadin called again today INR 5.00 will hold again today They are having VNA check again tomorrow Marry states no c/o of bleeding etc aware to go to the ER if any or falls Has had diarrhea A few times Has been on doxycycline for a few weeks , ending tomorrow * Telephone Encounter - Jaquelin Gaytan L.P.N. - 11/22/2021 10:01 AM EDT Noted FYI TO PCP * Telephone Encounter - Paris Beth - 11/22/2021 9:39 AM EDT Veronica from [facility] calling with INR of 5.5 for patient. States will hoild coumadin for today and recheck tomorrow. documented in this encounter Plan of Treatment Not on file documented as of this encounter Visit Diagnoses Not on filedocumented in this encounter Care Teams Boat Repairer Relationship Specialty Start Date End Date Kirk Randle MD [address] [place] [address] [address] [place] [address] PCP - General Internal Medicine 06/05/21 Ced Victoria MD [address] [place] [address] [address] [place] [address] Composite Worker Cardiovascular Disease 04/05/21 Virgie Trivedi NP [address] [place] [address] [address] [place] [address] Nurse Practitioner Cardiology 04/05/21 Alana Celaya NP [address] [place] [address] Dr M[facility]rack[facility] [address] Nurse Practitioner Cardiology 07/17/23 documented as of this encounter
--- OUTSIDE RECORDS SUMMARY | 2024-10-13 11:10 | XMS_ITS | Encounter Summary ---
Author Organization [facility] Address [address] [place] [address] Care Team Providers Care Treatment Technician Name Role Phone Ced Victoria MD Unavailable [phone] Virgie Trivedi NP Unavailable [phone] Kirk Randle MD Primary Care Provider [phone] Alana Celaya NP Unavailable [phone] Encounter Details Date Type Department Care Team Description 10/17/2021 Implementation Lead Report Medical Records [address] [place] [address] Abstract, Provider Social History Tobacco Use Types [...] have Coronavirus / COVID-19? No / Unsure 10/18/2021 8:45 AM EST documented as of this encounter Plan of Treatment Not on file documented as of this encounter Visit Diagnoses Not on filedocumented in this encounter Care Teams Treatment Technician Relationship Specialty Start Date End Date Kirk Randle MD [address] [place] [address] [address] [place] [address] PCP - General Internal Medicine 06/05/21 Ced Victoria MD [address] [place] [address] [address] [place] [address] Courtroom Deputy Or Calendar Clerk Cardiovascular Disease 04/05/21 Virgie Trivedi NP [address] [place] [address] [address] [place] [address] Nurse Practitioner Cardiology 04/05/21 Alana Celaya NP [address] [place] [address] Dr [facility] [place] [address] Nurse Practitioner Cardiology 07/17/23 documented as of this encounter
--- OUTSIDE RECORDS SUMMARY | 2024-10-13 11:10 | XMS_ITS | Encounter Summary ---
Author Organization [facility] Address [address] [place] [address] Care Team Providers Care Oil Bay Technician Name Role Phone Ced Vicotria MD Unavailable [phone] Virgie Trivedi NP Unavailable [phone] Kirk Randle MD Primary Care Provider [phone] Alana Celaya NP Unavailable [phone] Reason for Visit * Reason Onset Date Comments VNA Call 08/17/2021 Encounter Details Date Type Department Care Team Description 08/17/2021 Telephone Internal Medicine - [address], [address] [place], [place] [phone] Kirk Randle MD [address] [place], [place] [phone] VNA Call Social History Tobacco Use Types [...] AM EST documented as of this encounter Miscellaneous Notes * Telephone Encounter - Kristen Barragan - 08/17/2021 11:04 AM EST FYI PLEASE SEE BELOW Pt has been receiving treatments at the wound clinic but wounds are not healing quickly. Marty states this is a vascular issue and pt is compliant with treatment. Verbal orders given to discharge pt. They will resume care when the wounds begin to heal better. * Telephone Encounter - Elmer Ledesma - 08/17/2021 10:55 AM EST VNA CALL Which VNA office is calling? josafat Full name of caller: Debora 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 A nurse Is the caller at the patients home?: NO Reason for call: patient saw infectous diease on 08/05/21, not making progress, needs verbal to discharge next week and will resume once patients wounds are better Does caller need an urgent call back? NO Was CONTACT Telephone # obtained above?: YES Fax #: n/a documented in this encounter Plan of Treatment Not on file documented as of this encounter Visit Diagnoses Not on filedocumented in this encounter Care Teams Oil Bay Technician Relationship Specialty Start Date End Date Kirk Randle MD [address] [place] [address] [address] [place] [address] PCP - General Internal Medicine 06/05/21 Ced Victoria MD [address] [place] [address] [place] [address] Manager Analysis Cardiovascular Disease 04/05/21 Virgie Trivedi NP [address] [place] [address] [address] [place] [address] Nurse Practitioner Cardiology 04/05/21 Alana Celaya NP [address] [place] [address] Dr [facility] [place] [address] Nurse Practitioner Cardiology 07/17/23 documented as of this encounter
--- OUTSIDE RECORDS SUMMARY | 2024-10-13 11:10 | XMS_ITS | Encounter Summary ---
Author Organization [facility] Address [address] [place] [address] Care Team Providers Care Dimension Quarry Supervisor Name Role Phone Ced Victoria MD Unavailable [phone] Virgie Trivedi NP Unavailable [phone] Kirk Randle MD Primary Care Provider [phone] Alana Celaya NP Unavailable [phone] Reason for Visit * Reason Onset Date Comments REFERRAL 06/03/2023 Encounter Details Date Type Department Care Team Description 06/03/2023 Telephone Vascular Surgery - [address] [address] Rosita Gardner MD [address] [address] REFERRAL Social History Tobacco Use Types Packs/Day [...] suspected to have Coronavirus/COVID-19? No / Unsure 06/03/2023 11:08 AM EDT documented as of this encounter Miscellaneous Notes * Telephone Encounter - Juliann Solis - 06/05/2023 4:09 PM EDT Referral submitted. Not able to attach because a co pay was collected. * Telephone Encounter - Elise Tavarez - 06/03/2023 8:28 AM EDT Request for a referral to a Yane Specialist for a patient with a Yane PCP. If patient does NOT have a Yane PCP they must obtain a referral from their PCP before being seen-do not submit request to Referrals department-contact patient. Specialty patient is being referred to: vascular Name of Specialist patient is seeing: rosita gardner Reason/diagnosis for visit: Wound, Non-healing Date of appoinment: 06/03/23 If retro, date referral needs to start: 05/08/23 Jer Bradley Payor: [facility] / Plan: [employer] PREF HMO $10 [place] / Product Type: MEDICARE RISK documented in this encounter Plan of Treatment Not on file documented as of this encounter Visit Diagnoses Not on filedocumented in this encounter Care Teams Dimension Quarry Supervisor Relationship Specialty Start Date End Date Kirk Randle MD [address] [place] [address] [address] [place] [address] PCP - General Internal Medicine 06/05/21 Ced Victoria MD [address] [place] [address] [address] [place] [address] Pediatric Oncology Nurse Cardiovascular Disease 04/05/21 Virgie Trivedi NP [address] [place] [address] [address] [place] [address] Nurse Practitioner Cardiology 04/05/21 Alana Celaya NP [address] [place] [address] Dr Mccracken [facility] [place] [address] Nurse Practitioner Cardiology 07/17/23 documented as of this encounter
--- OUTSIDE RECORDS SUMMARY | 2024-10-13 11:10 | XMS_ITS | Encounter Summary ---
Author Organization [facility] Address [address] [place] [address] Care Team Providers Care Mine Utility Operator Name Role Phone Ced Victoria MD Unavailable [phone] Virgie Trivedi NP Unavailable [phone] Kirk Randle MD Primary Care Provider [phone] Alana Celaya NP Unavailable [phone] Reason for Visit * Reason Onset Date Comments Form 10/31/2021 Encounter Details Date Type Department Care Team Description 10/31/2021 Telephone Internal Medicine - [address], [address] [place] [address] Kirk Randle MD [address] [place], [place] [id number] Form Social History Tobacco Use Types Packs/Day Years [...] on filedocumented in this encounter Care Teams Mine Utility Operator Relationship Specialty Start Date End Date Kirk Randle MD [address] [place] [address] [address] [place] [address] PCP - General Internal Medicine 06/05/21 Ced Victoria MD [address] [place] [address] [address] [place] [address] Inspector Eyeglass Cardiovascular Disease 04/05/21 Virgie Trivedi NP [address] [place] [address] [address] [place] [address] Nurse Practitioner Cardiology 04/05/21 Alana Celaya NP [address] [place] [address] Dr [facility] [place] [address] Nurse Practitioner Cardiology 07/17/23 documented as of this encounter
--- OUTSIDE RECORDS SUMMARY | 2024-10-13 11:10 | XMS_ITS | Encounter Summary ---
Author Organization [facility] Address [address] [place] [address] Care Team Providers Care Taper/Finisher Name Role Phone Octavio Gross MD Primary Care Provider Unavaila Kathie Cordova PA-C Primary Care Provider + Kirk Randle MD Primary Care Provider [phone] Ced Victoria MD Unavailable [phone] Virgie Trivedi NP Unavailable [phone] Kirk Randle MD Primary Care Provider [phone] Alana Celaya NP Unavailable [phone] Encounter Details Date Type Department Care Team Description 09/16/2019 Release of Information Medical Records [address] [place] [address] Abstract, Provider Social History Tobacco Use Types [...] on filedocumented in this encounter Care Teams Taper/Finisher Relationship Specialty Start Date End Date Octavio Gross MD PCP - General Internal Medicine 05/19/18 02/22/20 Kathie Le PA-C PCP - General Internal Medicine 02/23/20 07/11/20 Kirk Randle MD PCP - General Internal Medicine 07/12/20 06/04/21 Kirk Randle MD PCP - General Internal Medicine 06/05/21 Ced Victoria MD [address] [place] [address] [address] [place], [place] [phone] Gui Developer Cardiovascular Disease 04/05/21 Virgie Trivedi NP [address] [place] [address] [address] [place], [place] [phone] Nurse Practitioner Cardiology 04/05/21 Alana Celaya NP [address] [place] [address] Dr [facility] [place], [place] [address] Nurse Practitioner Cardiology 07/17/23 documented as of this encounter
--- OUTSIDE RECORDS SUMMARY | 2024-10-13 11:10 | XMS_ITS | Encounter Summary ---
Author Organization [facility] Address [address] [place] [address] Care Team Providers Care Billing Adjudicator Name Role Phone Ced Victoria MD Unavailable [phone] Virgie Trivedi NP Unavailable [phone] Kirk Randle MD Primary Care Provider [phone] Alana Celaya NP Unavailable [phone] Reason for Visit * Reason Onset Date Comments Machine Operator Picker Feedback 10/19/2022 Referral (Specia lty Care Certification) [id number] Physician Name/ID (Requester Name/ID)[id number] KIRK RANDLE MDMember [id number] 01 [facility]Referred to Provider ID (Service Provider ID)[id number] TINO JACKSON, MDPlace of ServiceOfficeDate of Eqwndoe5907/25/2022Member Request Date2Determination Date3Diagnosis Code.Procedure CodeNumber of Cxfrrj2Urtpdnc Type RequestedConsultation/ Encounter Details Date Type Department Care Team Description 10/19/2022 Telephone Internal Medicine - [address], [address] [place] [address] Kirk Randle MD [address] [place] [address] Machine Operator Picker Feedback (Referral (Specialty Care Certification) ID/[id number]/Referring Physician Name/ID (Requester Name/ID)/[id number] KIRK RANDLE MD/Member ID/[id number] VLADIMIR C SARAVANAN/Date of /1940/Referr ed to Provider ID (Service Provider ID)/[id number] TINO JACKSON MD/Place of Service/Office/Date of Service/07/25/2022/Memb er Request Date/07/25/2022/Determi nation Date/07/25/2023/Diagnos is Code/./Procedure Code/Number of Visits/6/Service Type Requested/Consultation/ ) Social History Tobacco Use Types Packs/Day [...] encounter Miscellaneous Notes * Telephone Encounter - Parris James - 10/19/2022 11:24 AM EST Referral (Specialty Care Certification) ID [id number] Referring Physician Name/ID (Requester Name/ID) [id number] KIRK RANDLE MD VLADIMIR C SARAVANAN Date of 1940 Referred to Provider ID (Service Provider ID) [id number] TINO JACKSON MD Place of Service Office Date of Service 07/25/2022 Member Request Date 07/25/2022 Determination Date 07/25/2023 Diagnosis Code . Procedure Code Number of Visits 6 Service Type Requested Consultation/Diagnostic/Medical Care - Consultative opinion and necessary diagnostic studies and treatment documented in this encounter Plan of Treatment Not on file documented as of this encounter Visit Diagnoses Not on filedocumented in this encounter Care Teams Billing Adjudicator Relationship Specialty Start Date End Date Kirk Randle MD [address] [place] [address] [address] [place] [address] PCP - General Internal Medicine 06/05/21 Ced Victoria MD [address] [place] [address] [address] [place] [address] Metal Framer Cardiovascular Disease 04/05/21 Virgie Trivedi NP [address] [place] [address] [address] [place] [address] Nurse Practitioner Cardiology 04/05/21 Alana Celaya NP [address] [place] [address] [facility] [place] [address] Nurse Practitioner Cardiology 07/17/23 documented as of this encounter
--- OUTSIDE RECORDS SUMMARY | 2024-10-13 11:10 | XMS_ITS | Encounter Summary ---
Author Organization [facility] Address [address] [place] [address] Care Team Providers Care Plateman Name Role Phone Ced Victoria MD Unavailable [phone] Virgie Trivedi NP Unavailable [phone] Kirk Randle MD Primary Care Provider [phone] Alana Celaya NP Unavailable [phone] Encounter Details Date Type Department Care Team Description 02/01/2023 Drying Unit Felting Machine Operator Report Medical Records [address] [place] [address] Social History Tobacco Use Types Packs/Day Years [...] suspected to have Coronavirus/COVID-19? No / Unsure 01/30/2023 1:53 PM EDT documented as of this encounter Plan of Treatment Not on file documented as of this encounter Visit Diagnoses Not on filedocumented in this encounter Care Teams Plateman Relationship Specialty Start Date End Date Kirk Randle MD [address] [place] [address] [address] [place] [address] PCP - General Internal Medicine 06/05/21 Ced Victoria MD [address] [place] [address] [address] [place] [address] Shop Mechanic Cardiovascular Disease 04/05/21 Virgie Trivedi NP [address] [place] [address] [address] [place] [address] Nurse Practitioner Cardiology 04/05/21 Alana Celaya NP [address] [place] [address] [facility] [place] [address] Nurse Practitioner Cardiology 07/17/23 documented as of this encounter
--- OUTSIDE RECORDS SUMMARY | 2024-10-13 11:10 | XMS_ITS | Encounter Summary ---
Author Organization [facility] Address [address] [place] [address] Care Team Providers Care Casino Cage Manager Name Role Phone Ced Victoria MD Unavailable [phone] Virgie Trivedi NP Unavailable [phone] Kirk Randle MD Primary Care Provider [phone] Alana Celaya NP Unavailable [phone] Encounter Details Date Type Department Care Team Description 07/24/2021 Cigar Packing Examiner Report Medical Records [address] [place] [id number] [place] [address] Social History Tobacco Use Types Packs/Day Years [...] on filedocumented in this encounter Care Teams Casino Cage Manager Relationship Specialty Start Date End Date Kirk Randle MD [address] [place] [address] [address] [place] [address] PCP - General Internal Medicine 06/05/21 Ced Victoria MD [address] [place] [address] [address] [place] [address] Cartography Supervisor Cardiovascular Disease 04/05/21 Virgie Trivedi NP [address] [place] [address] [address] [place] [address] Nurse Practitioner Cardiology 04/05/21 Alana Celaya NP [address] [place] [address] [facility] [place] [address] Nurse Practitioner Cardiology 07/17/23 documented as of this encounter
--- OUTSIDE RECORDS SUMMARY | 2024-10-13 11:10 | XMS_ITS | Encounter Summary ---
Author Organization [facility] Address [address] [place] [address] Care Team Providers Care Hole Filler Name Role Phone Kathie Le PA-C Primary Care Provider + Kirk Randle MD Primary Care Provider [phone] Ced Victoria MD Unavailable [phone] Virgie Trivedi ORIENTAL RUG REPAIRER Unavailable [phone] Kirk Randle MD Primary Care Provider [phone] Alana Celaya ORIENTAL RUG REPAIRER Unavailable [phone] Encounter Details Date Type Department Care Team Description 03/21/2020 Telephone Internal Medicine - [address], [address] [place], [place] [phone] Kathie Le PA-C [address] [place] [phone] Social History Tobacco Use Types Packs/Day Years [...] on filedocumented in this encounter Care Teams Hole Filler Relationship Specialty Start Date End Date Kathie Le PA-C PCP - General Internal Medicine 02/23/20 07/11/20 Kirk Randle MD PCP - General Internal Medicine 07/12/20 06/04/21 Kirk Randle MD PCP - General Internal Medicine 06/05/21 Ced Victoria MD [address] [place] [address] [address] [place], [place] [phone] Price Analyst Cardiovascular Disease 04/05/21 Virgie Trivedi NP [address] [place] [address] [address] [place], [place] [address] Nurse Practitioner Cardiology 04/05/21 Alana Celaya NP [address] [place] [address] [facility] [place], [place] [address] Nurse Practitioner Cardiology 07/17/23 documented as of this encounter
--- OUTSIDE RECORDS SUMMARY | 2024-10-13 11:10 | XMS_ITS | Encounter Summary ---
Author Organization [facility] Address [address] [place] [address] Care Team Providers Care Vp Clinical Research Name Role Phone Ced Victoria MD Unavailable [phone] Virgie Trivedi NP Unavailable [phone] Kirk Randle MD Primary Care Provider [phone] Alana Celaya NP Unavailable [phone] Encounter Details Date Type Department Care Team Description 10/10/2021 Home Health Certification Medical Records [address] [place] [address] Social History Tobacco Use Types Packs/Day Years [...] have Coronavirus / COVID-19? No / Unsure 10/12/2021 8:51 AM EST documented as of this encounter Plan of Treatment Not on file documented as of this encounter Visit Diagnoses Not on filedocumented in this encounter Care Teams Vp Clinical Research Relationship Specialty Start Date End Date Kirk Randle MD [address] [place] [address] [address] [place] [address] PCP - General Internal Medicine 06/05/21 Ced Victoria MD [address] [place] [address] [address] [place] [address] Customs Investigator Cardiovascular Disease 04/05/21 Virgie Trivedi NP [address] [place] [address] [address] [place] [address] Nurse Practitioner Cardiology 04/05/21 Alana Celaya NP [address] [place] [address] [facility] [place] [address] Nurse Practitioner Cardiology 07/17/23 documented as of this encounter
--- OUTSIDE RECORDS SUMMARY | 2024-10-13 11:10 | XMS_ITS | Encounter Summary ---
Author Organization [facility] Address [address] [place] [address] Care Team Providers Care Threading Machine Feeder Automatic Name Role Phone Kirk Randle MD Primary Care Provider [phone] Reason for Visit * Reason Onset Date Comments Med Refill 09/18/2024 Atorvastatin Encounter Details Date Type Department Care Team (Late st Contact Info) Description 09/18/[address] [place] [phone] Ced Victoria MD [address] [place] [address] [address] [place] [address] Med Refill (Atorvastatin) Social History Tobacco Use Types Packs/Day Years Used Date Smoking Tobacco: Never Smokeless Tobacco: Never Alcohol Use Standard Drinks/Week Comments No 0 (1 standard drink = 0.6 oz pur e alcohol) Sex and Gender Information Value Date Recorded Sex Assigned at Not on file Gender Identity Not on file Sexual Orientation Not on file Job Start Date Occupation Industry Not on file Not on file Not on file documented as of this encounter Ordered Prescriptions Prescription Sig Dispensed Refills Start Date End Da te atorvastatin (LIPITOR) 20 mg tablet Take 1 tablet (20 mg total) by mouth 1 (one) time each day. 90 tablet 09/18/2024 documented in this encounter Progress Notes * Vianca Edmond - 09/22/2024 4:13 PM EST BOOKED * Ame Stauffer RN - 09/18/2024 2:55 PM EST Atorvastatin refilled Lipid panel ordered and mailed to pt Access, please schedule overdue follow up. CINDA/AB Hess. Thanks * Alana Celaya NP - 09/18/2024 2:44 PM EST Yes please * Ame Stauffer RN - 09/18/2024 10:39 AM EST CLIFF 07/17/23 with you Lipids 12/04/21January I send in a 90 day supply of Atorvastatin and mail lipid order to pt? * Rabia Borjas - 09/18/2024 10:20 AM EST The patient called requesting a refill for atorvastatin 20 mg, 1 tablet daily, 90 day supply, pharmacy confirmed. documented in this encounter Plan of Treatment Upcoming Encounters Date Type Department Care Team (Late st Contact Info) Description 03/01/2025 11:00 AM EDT Office Visit Internal Medicine - [place] [address] [phone] Kirk Randle MD 175 [facility] [address] [place] [address] 04/19/2025 10:10 AM EDT Office Visit [facility] Cardiology [facility] [address] [place] [phone] Virgie Trivedi NP [address] [place] [address] [place] [address] 07/14/2025 1:00 PM EST Appointment [facility] Ultrasound [address] [place] [phone] documented as of this encounter Visit Diagnoses Diagnosis 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 Reorder 12/11/2023 09/18/2024 documented as of this encounter Orders Lab Orders Without Results Count Last Ordered D ate First Ordered Date LIPID PANEL WITH REFLEX TO DIRECT LDL 1 06/2025 documented in this encounter Care Teams Threading Machine Feeder Automatic Relationship Specialty Start Date End Date Kirk Randle MD 175 [facility] [address] [place] [address] PCP - General Internal Medicine 07/12/20 documented as of this encounter
--- OUTSIDE RECORDS SUMMARY | 2024-10-13 11:10 | XMS_ITS ---
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) ACTIVE 03/27/2021 ABNORMAL LEVELS OF OTHER SERUM ENZYMES (R74.8 - ICD-10 -CM) ACTIVE 03/27/2021 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) ACTIVE 03/27/2021 PERIPHERAL VASCULAR DISEASE, UNSPECIFIED (I73.9 - ICD-10-CM) ACTIVE 03/27/2021 DIZZINESS AND GIDDINESS (R42 - ICD-10-CM) ACTIVE 03/27/2021 UNSPECIFIED FALL, SEQUELA (W19.XXXS - ICD-10-CM) ACTIV E 03/27/2021 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 There is mild osteoarthritis in the left shoulder joint and left acromioclavicular joint. No soft tissue calcifications are seen.CONCLUSION: Mild osteoarthritis left shoulder joint and left AC joint.ELECTRONICALLY SIGNED BY SE MUNOZ M.D. 03/31/2021 5:23:51 PM EDT.Reason for Study: M25.512 PAIN IN LEFT SHOULDERPrincipal Result Lead Person: SE MUNOZ ([id number])Lumber Straightener: EMMY PANTOJA (BBIRKS)Flask Maker Lumber Straightener: SANDRO 03/31/2021 05:24 pm EDT Encounters Encounter Performer Performer Role Encounter Diagnoses Location Date Discharge - Discharged / Transferred to another hospital - [facility] 03/27/2021 04:41 pm EDT - 04/01/2021 01:33 pm EDT Reason For Referral Fever Immunizations Vaccine Date SARS-COV-2 (COVID-19) 11/08/2020 12:00 a m EST SARS-COV-2 (COVID-19) 10/11/2020 12:00 a m EST Social History
--- OUTSIDE RECORDS SUMMARY | 2024-10-13 11:10 | XMS_ITS | Encounter Summary ---
Author Organization [facility] Address [address] [place] [address] Care Team Providers Care Hand Screen Printer Name Role Phone Ced [place] MD Unavailable [phone] Virgie Trivedi NP Unavailable [phone] Kirk Randle MD Primary Care Provider [phone] Alana Celaya NP Unavailable [phone] Encounter Details Date Type Department Care Team Description 03/26/2023 Orders Only Medical Records [address] [place] [address] Kirk Randle MD [address] [place], [place] [phone] Social History Tobacco Use Types Packs/Day Years [...] suspected to have Coronavirus/COVID-19? No / Unsure 02/28/2023 10:31 AM EDT documented as of this encounter Plan of Treatment Not on file documented as of this encounter Procedures Procedure Name Priority Date/Time Associated Diagnosis Comments OUTSIDE LAB Routine 03/13/2023 documented in this encounter Results * OUTSIDE LAB (03/13/2023) Kirk Randle MD LAB documented in this encounter Visit Diagnoses Not on filedocumented in this encounter Care Teams Hand Screen Printer Relationship Specialty Start Date End Date Kirk Randle MD [address] [place] [address] [address] [place] [address] PCP - General Internal Medicine 06/05/21 Ced Victoria MD [address] [place] [address] [address] [place] [address] Automotive Service Assistant Cardiovascular Disease 04/05/21 Virgie Trivedi NP [address] [place] [address] [address] [place] [address] Nurse Practitioner Cardiology 04/05/21 Alana Celaya NP [address] [place] [address] [facility] [place] [address] Nurse Practitioner Cardiology 07/17/23 documented as of this encounter
--- OUTSIDE RECORDS SUMMARY | 2024-10-13 11:10 | XMS_ITS | Encounter Summary ---
Author Organization [facility] Address [address] [place] [address] Care Team Providers Care Devulcanizer Loader Name Role Phone Octavio Gross MD Primary Care Provider Unavaila Kathie Cordova PA-C Primary Care Provider + Kirk Randle MD Primary Care Provider [phone] Ced Victoria MD Unavailable [phone] Virgie Trivedi NP Unavailable [phone] Kirk Randle MD Primary Care Provider [phone] Alana Celaya NP Unavailable [phone] Encounter Details Date Type Department Care Team Description 09/18/2018 Air Grinder Report Medical Records [address] [place] [address] Rhys Wynn Social History Tobacco Use Types [...] on filedocumented in this encounter Care Teams Devulcanizer Loader Relationship Specialty Start Date End Date Octavio Gross MD PCP - General Internal Medicine 05/19/18 02/22/20 Kathie Le PA-C PCP - General Internal Medicine 02/23/20 07/11/20 Kirk Randle MD PCP - General Internal Medicine 07/12/20 06/04/21 Kirk Randle MD PCP - General Internal Medicine 06/05/21 Ced Victoria MD [address] [place] [address] [address] [place], [place] [phone] Bridge Repairer Cardiovascular Disease 04/05/21 Virgie Trivedi NP [address] [place] [address] [address] [place] [address] Nurse Practitioner Cardiology 04/05/21 Alana Celaya NP [address] [place] [address] [facility] [place] [address] Nurse Practitioner Cardiology 07/17/23 documented as of this encounter
--- OUTSIDE RECORDS SUMMARY | 2024-10-13 11:10 | XMS_ITS | Encounter Summary ---
Author Organization [facility] Address [address] [place] [address] Care Team Providers Care Utilities Operator Name Role Phone Octavio Gross MD Primary Care Provider Unavaila Kathie Cordova PA-C Primary Care Provider + Kirk Randle MD Primary Care Provider [phone] Ced Victoria MD Unavailable [phone] Virgie Trivedi NP Unavailable [phone] Kirk Randle MD Primary Care Provider [phone] Alana Celaya NP Unavailable [phone] Encounter Details Date Type Department Care Team Description 07/09/2019 Old Medical Records Medical Records [address] [place] [address] Abstract, Provider Social History Tobacco Use Types [...] on filedocumented in this encounter Care Teams Utilities Operator Relationship Specialty Start Date End Date Octavio Gross MD PCP - General Internal Medicine 05/19/18 02/22/20 Kathie Le PA-C PCP - General Internal Medicine 02/23/20 07/11/20 Kirk Randle MD PCP - General Internal Medicine 07/12/20 06/04/21 Kirk Randle MD PCP - General Internal Medicine 06/05/21 Ced [place] MD [address] [place] [address] [address] [place], [place] [phone] Shredding Machine Knife Changer Cardiovascular Disease 04/05/21 Virgie Trivedi NP [address] [place] [address] [address] [place], [place] [phone] Nurse Practitioner Cardiology 04/05/21 Alana Celaya NP [address] [place] [address] [facility] [place], [place] [address] Nurse Practitioner Cardiology 07/17/23 documented as of this encounter
--- OUTSIDE RECORDS SUMMARY | 2024-10-13 11:10 | XMS_ITS | Encounter Summary ---
Author Organization [facility] Address [address] [place] [address] Care Team Providers Care Engineering Director Name Role Phone Octavio Gross MD Primary Care Provider Unavaila Kathie Cordova PA-C Primary Care Provider + Kirk Randle MD Primary Care Provider [phone] Ced Victoria MD Unavailable [phone] Virgie Trivedi NP Unavailable [phone] Kirk Randle MD Primary Care Provider [phone] Alana Celaya NP Unavailable [phone] Reason for Visit * Reason Onset Date Comments Provider Call Back 07/25/2018 Encounter Details Date Type Department Care Team Description 07/25/2018 Telephone Internal Medicine - [address], [address] [place] [address] Octavio Gross MD Provider Call Back Social History Tobacco Use [...] encounter Miscellaneous Notes * Telephone Encounter - Pili Coughlin M.A. - 07/25/2018 1:38 PM EST Pt aware. * Telephone Encounter - Octavio Gross MD - 07/25/2018 1:00 PM EST I don't believe he needs this extra service if he doesn't want it, * Telephone Encounter - Edita Davison - 07/25/2018 11:17 AM EST [phone] (home) [phone] (work) Spoke with pt and advised, he stated that does he really doesn't need the [employer] services? Hestated that he comes in and has appt with you and discuss what's going on, or what he having a problem with. He wants to know does he need this service? Please advise * Telephone Encounter - Soila Marks - 07/25/2018 11:01 AM EST Patient received a letter from [facility] stating that he qualifies for a free home care visit once a year to have a physical and other treatments done at home. Patient would like to know if this was something that Dr. Gross set up. Please advise documented in this encounter Plan of Treatment Not on file documented as of this encounter Visit Diagnoses Not on filedocumented in this encounter Care Teams Engineering Director Relationship Specialty Start Date End Date Octavio Gross MD PCP - General Internal Medicine 05/19/18 02/22/20 Kathie Le PA-C PCP - General Internal Medicine 02/23/20 07/11/20 Kirk Randle MD PCP - General Internal Medicine 07/12/20 06/04/21 Kirk Randle MD PCP - General Internal Medicine 06/05/21 Ced Victoria MD [address] [place] [address] [address] [place] [address] Museum Director Cardiovascular Disease 04/05/21 Virgie Trivedi NP [address] [place] [address] [address] [place], [place] [phone] Nurse Practitioner Cardiology 04/05/21 Alana Celaya NP [address] [place] [address] [facility] [place] [address] Nurse Practitioner Cardiology 07/17/23 documented as of this encounter
--- OUTSIDE RECORDS SUMMARY | 2024-10-13 11:10 | XMS_ITS | Encounter Summary ---
Author Organization [facility] Address [address] [place] [address] Care Team Providers Care Enamel Buffer Name Role Phone Ced Victoria MD Unavailable [phone] Virgie Trivedi NP Unavailable [phone] Kirk Randle MD Primary Care Provider [phone] Alana Celaya NP Unavailable [phone] Encounter Details Date Type Department Care Team Description 05/29/2023 Home Health Certification Medical Records [address] [place] [address] Social History Tobacco Use Types Packs/Day Years [...] suspected to have Coronavirus/COVID-19? No / Unsure 05/23/2023 8:44 AM EDT documented as of this encounter Plan of Treatment Not on file documented as of this encounter Visit Diagnoses Not on filedocumented in this encounter Care Teams Enamel Buffer Relationship Specialty Start Date End Date Kirk Randle MD [address] [place] [address] [address] [place] [address] PCP - General Internal Medicine 06/05/21 Ced Victoria MD [address] [place] [address] [address] [place] [address] Manager Motor Cardiovascular Disease 04/05/21 Virgie Trivedi NP [address] [place] [address] [address] [place] [address] Nurse Practitioner Cardiology 04/05/21 Alana Celaya NP [address] [place] [address] [facility] [place] [address] Nurse Practitioner Cardiology 07/17/23 documented as of this encounter
--- OUTSIDE RECORDS SUMMARY | 2024-10-13 11:10 | XMS_ITS | Encounter Summary ---
Author Organization [facility] Address [address] [place] [address] Care Team Providers Care Living Nurse Name Role Phone Jospeh Gross MD Primary Care Provider Unavaila Kathie Cordova PA-C Primary Care Provider + Kirk Randle MD Primary Care Provider [phone] Ced Victoria MD Unavailable [phone] Virgie Trivedi NP Unavailable [phone] Kirk Randle MD Primary Care Provider [phone] Alana Celaya NP Unavailable [phone] Reason for Visit * Reason Onset Date Comments Railroad Operator Feedback 07/18/2018 USMAN SO : [id number] Encounter Details Date Type Department Care Team Description 07/18/2018 Telephone Internal Medicine - [address], [address] [place] [address] Joseph Gross MD Railroad Operator Feedback (USMAN ANTHONY : [id number]) Social History Tobacco Use Types Packs/Day Years [...] Miscellaneous Notes * Telephone Encounter - Ara Chua - 07/18/2018 12:02 PM EST [facility] Review Request Submission Status [ Save Response to Batch ] Request: [id number] [id number] [facility] Trace #: [id number] Subscriber: VLADIMIR FLYNN Submitter : JOSEPH GROSS Submitter Type: Provider : 1940 Referral (#[id number]) Specialty Care Review Type: Initial Certification Status : Certified in total Service Type : Medical Care Place Of Service : Other Place of Service Visits : 6 Service Date : 07/18/2018-07/18/2019 Service Providers Provider Name ID Provider Type USMAN OCASIO NPI : [id number] Service Provider Follow up per document ion patient get this done every year * Telephone Encounter - Carolina Martinez - 07/18/2018 11:17 AM EST What insurance does the patient have today? [facility] Effective 06/09/09: BS will not retro referral [...] insurance must be obtained and registered in [facility] or their referral can not be processed. Is this a retro request? NO. If yes for what date of service do you need the retro referral? N/A Who is calling to request this referral? Vladimir Flynn, Patient If the caller is not the patient, what is their name? N/A Ask the patient WHO referred them to this specialty: Patient saw Dr Gross at [facility] for the problem and was told if symptoms did not resolve or worsen they would refer them to this specialty FIRST and LAST NAME of SPECIALIST PATIENT is seeing: Dr Usman Ocasio What specialty is this? Urology DIAGNOSIS Patient is being seen for (Not a body part or a procedure): Prostate scan and PSA check every year Have you seen this SPECIALIST for this PROBLEM/DX before?NO If YES, when:N/A Have you checked REVIEW or the APPT DESK to see if this referral has already been done or has visits left? YES Is this visit:Initial Visit Address of Specialist: [address] [place] [address], [address] [place], [place] Phone # of Specialist:[phone] Fax #: (if applicable): N/A Does patient have an appointment scheduled?: YES Date of appointment- (including a retro-request): 08/12/18 @ 10AM Is this appointment related to: Not MVA, WC or Surgery related documented in this encounter Plan of Treatment Not on file documented as of this encounter Visit Diagnoses Not on filedocumented in this encounter Care Teams Living Nurse Relationship Specialty Start Date End Date Joseph Gross MD PCP - General Internal Medicine 05/19/18 02/22/20 Kathie Le PA-C PCP - General Internal Medicine 02/23/20 07/11/20 Kirk Randle MD PCP - General Internal Medicine 07/12/20 06/04/21 Kirk Randle MD PCP - General Internal Medicine 06/05/21 Ced Victoria MD [address] [place] [address] [address] [place] [address] Rail Signal Designer Cardiovascular Disease 04/05/21 Virgie Trivedi NP [address] [place] [address] [address] [place], [place] [id number] Nurse Practitioner Cardiology 04/05/21 Alana Celaya NP [address] [place] [address] Dr Mccracken [facility] [place] [address] Nurse Practitioner Cardiology 07/17/23 documented as of this encounter
--- OUTSIDE RECORDS SUMMARY | 2024-10-13 11:10 | XMS_ITS | Encounter Summary ---
Author Organization [facility] Address [address] [place] [address] Care Team Providers Care Die Hardener Name Role Phone Joseph Gross MD Primary Care Provider Unavaila Kathie Cordova PA-C Primary Care Provider + Kirk Randle MD Primary Care Provider [phone] Ced Victoria MD Unavailable [phone] Virgie Trivedi NP Unavailable [phone] Kirk Randle MD Primary Care Provider [phone] Alana Celaya NP Unavailable [phone] Reason for Visit * Reason Onset Date Comments Denture Processor Feedback 07/18/2018 Dr Boy Romero Encounter Details Date Type Department Care Team Description 07/18/2018 Telephone Internal Medicine - [address], [address] [place] [address] Joseph Gross MD Denture Processor Feedback (Dr Brunson Instrjames) Social History Tobacco Use Types Packs/Day Years [...] encounter Miscellaneous Notes * Telephone Encounter - Rosenda Misael - 07/18/2018 12:24 PM EST [facility] Trace #: [id number] Subscriber: VLADIMIR FLYNN Submitter : JOSEPH GROSS Submitter Type: Provider : 1940 Referral (#[id number]) Specialty Care Review Type: Initial Certification Status : Certified in total Service Type : Medical Care Place Of Service : Office Visits : 6 Service Date : 07/18/2018-07/18/2019 Service Providers Provider Name ID Provider Type DUTCH CAAZRES NPI : [id number] Service Provider * Telephone Encounter - Carolina Martinez - 07/18/2018 11:21 AM EST What insurance does the patient have today? [facility] Effective 06/09/09: BS will not retro [...] insurance must be obtained and registered in [facility] or their referral can not be processed. Is this a retro request? NO. If yes for what date of service do you need the retro referral? N/A Who is calling to request this referral? Vladimir Flynn, patient If the caller is not the patient, what is their name? N/A Ask the patient WHO referred them to this specialty: Patient saw Dr Gross at [facility] for the problem and was told if symptoms did not resolve or worsen they would refer them to this specialty FIRST and LAST NAME of SPECIALIST PATIENT is seeing: Dr Boy Cazares What specialty is this? Orthopedic Surgeon DIAGNOSIS Patient is being seen for (Not a body part or a procedure): Knee replacement Have you seen this SPECIALIST for this PROBLEM/DX before?YES If YES, when: 2 - 3 times a year Have you checked REVIEW or the APPT DESK to see if this referral has already been done or has visits left? YES Is this visit:Follow Up Address of Specialist: [address] [place] [address], [address], [facility] [address] Phone # of Specialist: [phone] Fax #: (if applicable): [phone] Does patient have an appointment scheduled?: YES Date of appointment- (including a retro-request): 08/05/18 @ 9:45am Is this appointment related to: Not MVA, WC or Surgery related documented in this encounter Plan of Treatment Not on file documented as of this encounter Visit Diagnoses Not on filedocumented in this encounter Care Teams Die Hardener Relationship Specialty Start Date End Date Joseph Gross MD PCP - General Internal Medicine 05/19/18 02/22/20 Kathie Le PA-C PCP - General Internal Medicine 02/23/20 07/11/20 Kirk Randle MD PCP - General Internal Medicine 07/12/20 06/04/21 Kirk Randle MD PCP - General Internal Medicine 06/05/21 Ced Victoria MD [address] [place] [address] [address] [place] [address] Metal Control Worker Cardiovascular Disease 04/05/21 Virgie Trivedi NP [address] [place] [address] [address] [place] [address] Nurse Practitioner Cardiology 04/05/21 Alana Celaya NP [address] [place] [address] Dr [facility] [place] [address] Nurse Practitioner Cardiology 07/17/23 documented as of this encounter
--- OUTSIDE RECORDS SUMMARY | 2024-10-13 11:10 | XMS_ITS | Encounter Summary ---
Author Organization [facility] Address [address] [place] [address] Care Team Providers Care Clutch Mechanic Name Role Phone Octavio Gross MD Primary Care Provider Unavaila Kathie Cordova PA-C Primary Care Provider + Kirk Randle MD Primary Care Provider [phone] Ced Victoria MD Unavailable [phone] Virgie Trivedi NP Unavailable [phone] Kirk Randle MD Primary Care Provider [phone] Alana Celaya NP Unavailable [phone] Encounter Details Date Type Department Care Team Description 06/17/2019 Orders Only Medical Records [address] [place] [address] Abstract, Provider Social History Tobacco Use Types [...] Date/Time Associated Diagnosis Comments OUTSIDE LAB Routine 06/16/2019 documented in this encounter Results * OUTSIDE LAB (06/16/2019) Provider Abstract LAB documented in this encounter Visit Diagnoses Not on filedocumented in this encounter Care Teams Clutch Mechanic Relationship Specialty Start Date End Date Octavio Gross MD PCP - General Internal Medicine 05/19/18 02/22/20 Kathie Le PA-C PCP - General Internal Medicine 02/23/20 07/11/20 Kirk Randle MD PCP - General Internal Medicine 07/12/20 06/04/21 Kirk Randle MD PCP - General Internal Medicine 06/05/21 Ced Victoria MD [address] [place] [address] [address] [place] [address] Wait Staff Cardiovascular Disease 04/05/21 Virgie Trivedi NP [address] [place] [address] [address] [place], [place] [address] Nurse Practitioner Cardiology 04/05/21 Alana Celaya NP [address] [place] [address] Dr [facility] [place] [address] Nurse Practitioner Cardiology 07/17/23 documented as of this encounter
--- OUTSIDE RECORDS SUMMARY | 2024-10-13 11:10 | XMS_ITS | Encounter Summary ---
Author Organization [facility] Address [address] [place] [address] Care Team Providers Care Senior Administrative Associate Name Role Phone Ced Victoria MD Unavailable [phone] Vigrie Trivedi NP Unavailable [phone] Kirk Randle MD Primary Care Provider [phone] Alana Celaya NP Unavailable [phone] Encounter Details Date Type Department Care Team Description 05/10/2023 Humanities Coordinator Report Medical Records [address] [place] [address] Abstract, Provider Social History Tobacco Use Types [...] suspected to have Coronavirus/COVID-19? No / Unsure 05/08/2023 10:17 AM EDT documented as of this encounter Plan of Treatment Not on file documented as of this encounter Visit Diagnoses Not on filedocumented in this encounter Care Teams Senior Administrative Associate Relationship Specialty Start Date End Date Kirk Randle MD [address] [place] [address] [address] [place] [address] PCP - General Internal Medicine 06/05/21 Ced Victoria MD [address] [place] [address] [address] [place] [address] Card Puncher Cardiovascular Disease 04/05/21 Virgie Trivedi NP [address] [place] [address] [address]IVE [address] [place] [address] Nurse Practitioner Cardiology 04/05/21 Alana Celaya NP [address] [place] [address] Dr [facility] [place] [address] Nurse Practitioner Cardiology 07/17/23 documented as of this encounter
--- OUTSIDE RECORDS SUMMARY | 2024-10-13 11:10 | XMS_ITS | Encounter Summary ---
Author Organization [facility] Address [address] [place] [address] Care Team Providers Care Project Inspector Name Role Phone Octavio Gross MD Primary Care Provider Unavaila Kathie Cordova PA-C Primary Care Provider + Kirk Randle MD Primary Care Provider [phone] Ced Victoria MD Unavailable [phone] Virgie Trivedi NP Unavailable [phone] Kirk Randle MD Primary Care Provider [phone] Alana Celaya NP Unavailable [phone] Encounter Details Date Type Department Care Team Description 06/16/2019 Old Medical Records Medical Records [address] [place] [address] Abstract, Provider Social History Tobacco Use Types [...] on filedocumented in this encounter Care Teams Project Inspector Relationship Specialty Start Date End Date Octavio Gross MD PCP - General Internal Medicine 05/19/18 02/22/20 Kathie Le PA-C PCP - General Internal Medicine 02/23/20 07/11/20 Kirk Randle MD PCP - General Internal Medicine 07/12/20 06/04/21 Kirk Randle MD PCP - General Internal Medicine 06/05/21 Ced Victoria MD [address] [place] [address] [address] [place], [place] [phone] Diver Pumper Cardiovascular Disease 04/05/21 Virgie Trivedi NP [address] [place] [address] [address] [place], [place] [phone] Nurse Practitioner Cardiology 04/05/21 Alana Celaya NP [address] [place] [address] Dr [facility] [place], [place] [address] Nurse Practitioner Cardiology 07/17/23 documented as of this encounter
--- OUTSIDE RECORDS SUMMARY | 2024-10-13 11:10 | XMS_ITS | Encounter Summary ---
Author Organization [facility] Address [address] [place] [address] Care Team Providers Care Fish Boning Machine Feeder Name Role Phone Ced Victoria MD Unavailable [phone] Virgie Trivedi NP Unavailable [phone] Kirk Randle MD Primary Care Provider [phone] Alana Celaya NP Unavailable [phone] Encounter Details Date Type Department Care Team Description 09/05/2021 Telephone Internal Medicine - [address], [address] [place], [place] [id number] Kirk Randle MD [address] [place], [place] [phone] Social History Tobacco Use Types Packs/Day Years [...] on filedocumented in this encounter Care Teams Fish Boning Machine Feeder Relationship Specialty Start Date End Date Kirk Randle MD [address] [place] [address] [address] [place] [address] PCP - General Internal Medicine 06/05/21 Ced Victoria MD [address] [place] [address] [address] [place] [address] Proofer Black And White Cardiovascular Disease 04/05/21 Virgie Trivedi NP [address] [place] [address] [address] [place] [address] Nurse Practitioner Cardiology 04/05/21 Alana Celaya NP [address] [place] [address] Dr [facility] [place] [address] Nurse Practitioner Cardiology 07/17/23 documented as of this encounter
--- OUTSIDE RECORDS SUMMARY | 2024-10-13 11:10 | XMS_ITS | Encounter Summary ---
Author Organization [facility] Address [address] [place] [address] Care Team Providers Care Eye Clinic Manager Name Role Phone Ced Victoria MD Unavailable [phone] Virgie Trivedi NP Unavailable [phone] Kirk Randle MD Primary Care Provider [phone] Alana Celaya NP Unavailable [phone] Reason for Visit * Reason Onset Date Comments [facility]NA Call 05/29/2023 Encounter Details Date Type Department Care Team Description 05/29/2023 Telephone Internal Medicine - [address], [address] [place], [place] [address] Kirk Randle MD [address] [place], [place] [phone] VNA Call Social History Tobacco Use Types [...] encounter Miscellaneous Notes * Telephone Encounter - Natali Ventura RN - 05/29/2023 4:19 PM EDT Please see FYI from [facility] Call to A # [phone], spoke w/ Erlinda. Verbal orders given For his wound, they are doing Calcium AG, dry clean dressing on pat wound. 2x per week unless vascular MD orders otherwise for wound care. Pt has appt w/ vascular on Saturday for further assessment/orders Also FYI pt is not taking his multivitamin or [place] 3 supplement * Telephone Encounter - Kristen Huffman - 05/29/2023 4:12 PM EDT [facility]NA CALL Which A office is calling? [place] Full name of caller: Erlinda Rojas 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 A nurse Is the caller at the patients home?: NO Reason for call: Nurse called today to request verbal orders: prison and wound care - nurse saw patient today. Does caller need an urgent call back? YES Was CONTACT Telephone # obtained above?: YES Fax #: documented in this encounter Plan of Treatment Not on file documented as of this encounter Visit Diagnoses Not on filedocumented in this encounter Care Teams Eye Clinic Manager Relationship Specialty Start Date End Date Kirk Randle MD [address] [place] [address] [address]IVE [address] [place] [address] PCP - General Internal Medicine 06/05/21 Ced Victoria MD [address] [place] [address] [address] [place] [address] Barometers Calibrator Cardiovascular Disease 04/05/21 Virgie Trivedi NP [address] [place] [address] [address] [place] [address] Nurse Practitioner Cardiology 04/05/21 Alana Celaya NP [address] [place] [address] Dr [facility] [place] [address] Nurse Practitioner Cardiology 07/17/23 documented as of this encounter
--- OUTSIDE RECORDS SUMMARY | 2024-10-13 11:10 | XMS_ITS | Encounter Summary ---
Author Organization [facility] Address [address] [place] [address] Care Team Providers Care Pmo Manager Name Role Phone Ced Victoria MD Unavailable [phone] Virgie Trivedi NP Unavailable [phone] Kirk Randle MD Primary Care Provider [phone] Alana Celaya NP Unavailable [phone] Encounter Details Date Type Department Care Team Description 11/21/2021 Church History Teacher Report Medical Records [address] [place] [address] [place] [address] Social History Tobacco Use Types Packs/Day Years [...] on filedocumented in this encounter Care Teams Pmo Manager Relationship Specialty Start Date End Date Kirk Randle MD [address] [place] [address] [address]IVE [address] [place] [address] PCP - General Internal Medicine 06/05/21 Ced Victoria MD [address] [place] [address] [address] [place] [address] Filter Operator Cardiovascular Disease 04/05/21 Virgie Trivedi NP [address] [place] [address] [address] [place] [address] Nurse Practitioner Cardiology 04/05/21 Alana Celaya NP [address] [place] [address] Dr [facility] [place] [address] Nurse Practitioner Cardiology 07/17/23 documented as of this encounter
--- OUTSIDE RECORDS SUMMARY | 2024-10-13 11:10 | XMS_ITS | Encounter Summary ---
Author Organization [facility] Address [address] [place] [address] Care Team Providers Care Switch House Operator Name Role Phone Kirk Randle MD Primary Care Provider [phone] Reason for Visit * Reason Onset Date Comments Jer - Referral 10/07/2024 Encounter Details Date Type Department Care Team ([facility] st Contact Info) Description 10/07/2024 Telephone Internal Medicine - [place] [address] [facility] [address] [place] [address] Kirk Randle MD [address] [facility] [address] [place] [address] Jer - Referral Social History Tobacco Use Types Packs/Day Years [...] on file documented as of this encounter Progress Notes * Dank Christianson MA - 10/08/2024 3:[address] referral MELVIN pt has appt tomorrow. * Erlinda Neal - 10/08/2024 2:55 PM EST Patient called and stated that he really needs this referral sent to [facility] because his tatyana is tomorrow at 9am. Please advise Cb# [phone] * Corry Gonsalez - 10/07/2024 9:30 AM EST Referral Request: What insurance does the patient have today? [employer] [facility] [id number] Referrals cannot be processed if the insurance is not accurate. If the insurance listed above in red is NO BILLING INFORMATION FOUND FOR THIS ENCOUTNER The patients correct insurance must be obtained and registered in [facility] or their referral can not be processed. Is this a retro request? no. If yes for what date of service do you need the retro referral? N/A Who is calling to request this referral? [facility] office If the caller is not the patient, what is their name? William Ask the patient WHO referred them to this specialty: Patient self referred FIRST and LAST NAME of SPECIALIST PATIENT is seeing: NPI - [id number] What specialty is this? Cardiology DIAGNOSIS Patient is being seen for (Not a body part or a procedure): CAD Have you seen this SPECIALIST for this PROBLEM/DX before? If YES, when? No Have you checked REVIEW or the APPT DESK to see if this referral has already been done or has visits left? yes Is this visit: Initial Visit, for 6 visits Address of Specialist: [address] [place] [address] Phone # of Specialist: [phone] Fax #: (if applicable): [phone] Does patient have an appointment scheduled?: yes Date of appointment- (including a retro-request): 10/09/24 Is this appointment related to: Not MVA, worker compensation, or surgery related documented in this encounter Plan of Treatment Upcoming Encounters Date Type Department Care Team (Late st Contact Info) Description 03/01/2025 11:00 AM EDT Office Visit Internal Medicine - [place] [address] [facility] [address] [place] [phone] Kirk Randle MD [address] [facility] [address] [place] [address] 04/19/2025 10:10 AM EDT Office Visit [facility] - [facility] [address] [place] [id number] Virgie Trivedi, [place] [address] [place] [address] [address] [place] [address] 07/14/2025 1:00 PM EST Appointment Ultrasound [address] [place] [phone] documented as of this encounter Visit Diagnoses Not on filedocumented in this encounter Additional Health Concerns Assessment Noted Time PHQ-9 Depression Total Score: 0 09/30/19 25 9:22 AM EST A fall risk assessment has been complete d for the patient 09/30/2024 9:20 AM EST documented as of this encounter Care Teams Switch House Operator Relationship Specialty Start Date End Date Kirk Randle MD [address] [facility] [address] [place] [address] PCP - General Internal Medicine 07/12/20 documented as of this encounter
--- OUTSIDE RECORDS SUMMARY | 2024-10-13 11:10 | XMS_ITS | Encounter Summary ---
Author Organization [facility] Address [address] [place] [address] Care Team Providers Care Machine Setup Operator Name Role Phone Ced Victoria MD Unavailable [phone] Virgie Trivedi NP Unavailable [phone] Kirk Randle MD Primary Care Provider [phone] Alana Celaya NP Unavailable [phone] Encounter Details Date Type Department Care Team Description 11/07/2021 Fabric Worker Foreman Report Medical Records [address] [place] [address] [place] [address] Social History Tobacco Use Types Packs/Day Years [...] on filedocumented in this encounter Care Teams Machine Setup Operator Relationship Specialty Start Date End Date Kirk Randle MD [address] [place] [address] [address]IVE [address] [place] [address] PCP - General Internal Medicine 06/05/21 Ced Victoria MD [address] [place] [address] [address] [place] [address] Cuff Slitter Cardiovascular Disease 04/05/21 Virgie Trivedi NP [address] [place] [address] [address] [place] [address] Nurse Practitioner Cardiology 04/05/21 Alana Celaya NP [address] [place] [address] Dr [facility] [place] [address] Nurse Practitioner Cardiology 07/17/23 documented as of this encounter
--- OUTSIDE RECORDS SUMMARY | 2024-10-13 11:10 | XMS_ITS | Encounter Summary ---
Author Organization [facility] Address [address] [place] [address] Care Team Providers Care Order Processing Specialist Name Role Phone Kirk Randle MD Primary Care Provider [phone] Reason for Visit * Reason Comments Medicare Annual Wellness Visit Subsequen t Encounter Details Date Type Department Care Team ([facility] st Contact Info) Description 09/30/2024 9:00 AM EST Office Visit Internal Medicine - [place] [address] [facility] [address] [place] [phone] Kirk Randle MD [address] [facility] [address] [place] [address] Primary hypertension (Primary Dx); Cardiomyopathy, unspecified type (CMS/HCC); Hypercholesterolemia Social History Tobacco Use Types Packs/Day Years [...] on file documented as of this encounter Last Filed Vital Signs Vital Sign Reading Time Taken Comments Blood Pressure 130/70 09/30/2024 9:15 AM EST Pulse 72 09/30/2024 9:15 AM EST Temperature 36.8 ??C (98.2 ??F) 09/30/2024 9:15 AM ES T Respiratory Rate - - Oxygen Saturation 98% 09/30/2024 9:15 AM EST Inhaled Oxygen Concentration - - Weight 97.1 kg (214 lb) 09/30/2024 9:15 AM EST Height 190.5 cm (6' 3 ) 09/30/2024 9:15 AM EST Body Mass Index 26.75 09/30/2024 9:15 AM EST documented in this encounter Progress Notes * Kirk Randle MD - 09/30/2024 9:00 AM ESTAssociated Problem(s): Cardiomyopathy (CMS/HCC) Global hypokinesis EF of 45% on echo done in 2023 with A-fib ,continue Lasix ,warfarin and metoprolol. Orders: CBC and differential; Future Comprehensive metabolic panel; Future Lipid panel with reflex to direct LDL; Future Thyroid stimulating hormone; Future * Kirk Randle MD - 09/30/2024 9:00 AM ESTAssociated Problem(s): Hypertension Hypertension is under control. Orders: CBC and differential; Future Comprehensive metabolic panel; Future Lipid panel with reflex to direct LDL; Future Thyroid stimulating hormone; Future * Kirk Randle MD - 09/30/2024 9:00 AM EST Images from the original note were not included. Medicare Annual Wellness Visit Note Patient Name: Vladimir Flynn Date of : 1940 Race: White Vladimir chose not to disclose race. This has been discussed with the patient and they still prefer not to disclose their race. Ethnicity: Not Hispan/Lat Date of Service: 09/30/2024 Vladimir is a 84 y.o. 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 for up to 10 days. ADHESIVE TAPE TOP 1 each by Not Applicable route. every 30 days. atorvastatin (LIPITOR) 20 mg tablet Take 1 tablet (20 mg total) by mouth 1 (one) time each day. 90 tablet 0 fluticasone propionate (FLONASE) 50 mcg/actuation nasal spray Administer 2 sprays into each nostril1 (one) time each day. for 360 days. furosemide (LASIX) 20 mg tablet Take 1 tablet (20 mg total) by mouth 1 (one) time each day. medical supply, miscellaneous (MISCELLANEOUS MEDICAL SUPPLY MISC) Apply 1 each topically 3 (three) times a day. medical supply, miscellaneous (MISCELLANEOUS MEDICAL SUPPLY MISC) 1 each by Not Applicable route. every 30 days. medical supply, miscellaneous (MISCELLANEOUS MEDICAL SUPPLY MISC) 1 each by Not Applicable route 3 (three) times a day. medical supply, miscellaneous (MISCELLANEOUS MEDICAL SUPPLY MISC) 2 each by Not Applicable route 3 (three) times a day. metoprolol succinate (TOPROL-XL) 25 mg 24 hr tablet TAKE ONE TABLET BY MOUTH EVERY DAY 90 tablet 1 miscellaneous medical supply misc Apply 2 each topically. every 30 days. miscellaneous medical supply misc Apply 2 each topically. every 30 days. multivitamin (MULTIPLE VITAMINS ORAL) Take 1 tablet by mouth 1 (one) time each day. OMEGA-3 FATTY ACIDS ORAL Take 1 capsule by mouth 1 (one) time each day. warfarin (COUMADIN) 5 mg tablet Take 1 tablet (5 mg total) by mouth. See Admin Instructions. May cause heavy bleeding. Take at same time every day. Do not change dietary habits. [facility] directs coumadin instructions warfarin (COUMADIN) 5 mg tablet Take 1 tablet (5 mg total) by mouth. See Admin Instructions for 90 days. May cause heavy bleeding. Take at same time every day. Do not change dietary habits. No current facility-administered medications for this visit. Past Medical History: Diagnosis Date Atrial fibrillation (CMS/HCC) DX:Atrial fibrillation (HCC) BPH (benign prostatic hyperplasia) 07/30/2017 DX:BPH (benign prostatic hyperplasia) Cataracts, bilateral DX:Cataracts, bilateral Chronic venous insufficiency 05/14/2018 DX:Chronic venous insufficiency Coronary artery disease DX:Coronary artery disease; COMMENT: [place]; Stress test -ve 2010, treated in [facility] in 2004, stents put in. Diverticulosis DX:Diverticulosis History of knee replacement, total, right 12/12/2018 DX:History of knee replacement, total, right Hyperlipidemia DX:Hyperlipidemia Hypertension DX:Hypertension Nontoxic multinodular goiter 12/27/2017 DX:Nontoxic multinodular goiter Osteoarthritis 12/12/2018 DX:Osteoarthritis; COMMENT: R knee Varicose veins with pain 05/14/2018 DX:Varicose veins with pain Past Surgical History: Procedure Laterality Date BYPASS GRAFT Right 08/16/2022 PROCEDURE: TN AMPUTATION TOE METATARSOPHALANGEAL JOINT; COMMENT: R 5th toe CARDIAC CATHETERIZATION PROCEDURE: HISTORICAL CARDIAC CATH EYE SURGERY Bilateral PROCEDURE: HISTORICAL EYE SURGERY; COMMENT: cataracts KNEE ARTHROSCOPY PROCEDURE: TN ARTHROSCOPY AID TX SPINE&/FX KNEE W/O FIXJ OTHER SURGICAL HISTORY Right 05/19/2018 PROCEDURE: TN ENDOVEN ABLTJ INCMPTNT VEIN XTR LASER 1ST VEIN OTHER SURGICAL HISTORY Right 08/16/2022 PROCEDURE: TN INCISION BONE CORTEX FOOT; COMMENT: R 5th metatarsal OTHER SURGICAL HISTORY 10/23/2022 PROCEDURE: TN SLCTV CATHJ 3RD+ ORD SLCTV ABDL PEL/LXTR BRNCH OTHER SURGICAL HISTORY 10/23/2022 PROCEDURE: X-RAY EXAM OF ARM/LEG ARTERY OTHER SURGICAL HISTORY 10/23/2022 PROCEDURE: ULTRASOUND GUIDANCE FOR VASCULAR AC OTHER SURGICAL HISTORY 07/09/2023 PROCEDURE: TN REVSC OPN/PRQ TIB/RON W/ANGIOPLASTY UNI OTHER SURGICAL HISTORY 07/09/2023 PROCEDURE: ULTRASOUND GUIDANCE FOR VASCULAR AC TOTAL KNEE ARTHROPLASTY Right 10/07/2018 PROCEDURE: HISTORICAL TOTAL KNEE REPLACE; COMMENT: [facility] - Dr. Czaares Social History Socioeconomic History Marital status: Single Spouse name: Not on file Number of children: Not on file Years of education: Not on file Highest education level: Not on file Occupational History Not on file Tobacco Use Smoking status: Never Smokeless tobacco: Never Substance and Sexual Activity Alcohol use: No Drug use: No Sexual activity: Not on file Other Topics Concern Not on file Social History Narrative Exercising at the [employer] in [place] 5-6 days per week Family History Problem Relation Name Age of Onset Other (Other: Non Hodgkin's lymphoma) Other Other (Other: Malignant Melanoma) Other Other (Other: kidney cancer) Other Leukemia Mother Alcohol abuse Father Other (Other: ca kidney) Brother Other (Other: Atrial fib) Sister Immunizations: Immunization History Administered Date(s) Administered COVID-19 (Moderna/Spikevax) 12yo and older 06/14/2023, 06/08/2024 Influenza trivalent, 0.5mL (Fluad) 65yo and older 06/05/2019 Influenza trivalent, 0.5mL, preservative free (Fluarix; FluLaval; Fluzone) ages 6mo and older (Afluria) 3 years and older 07/10/2020 Moderna (age 6mo & older) Bivalent, COVID-19, 0.5 mL or 0.25 mL dosage 07/17/2022 Moderna SARS-CoV-2 COVID-19, mRNA, LNP-S, preservative free 10/11/2020, 11/08/2020, 08/28/2021 Pneumococcal conjugate 13 valent (Prevnar 13, PCV13) 2mo and older 06/21/2015 Pneumococcal polysaccharide 23 valent (Pneumovax 23) 2yo and older 07/30/2017 Hospitalization in the last year: Has not been hospitalized in the past 12 months. Current Providers and Suppliers: Patient Care Team: Kirk Randle MD as PCP - General (Internal Medicine) Ced Victoria MD as Surgeon (Cardiology) Virgie Trivedi NP as Nurse Practitioner (Cardiology) Patient does not have/use current medical supplier Risk Assessments: Cognitive Function Assessment No cognitive concerns, No screenings indicated. Depression Screening (PHQ2/9): Depression Screening Will the patient answer the depression risk questions?: Yes Over the last 2 weeks, how often have you been bothered by little interest or pleasure in doing things?: Not at all Over the last 2 weeks, how often have you been bothered by feeling down, depressed, or hopeless?: Not at all Depression Risk: 0 PHQ9 Full Set of Questions Over the last 2 weeks, how often have you been bothered by little interest or pleasure in doing things?: Not at all Over the last 2 weeks, how often have you been bothered by feeling down, depressed, or hopeless?: Not at all Depression Risk Score NEW: 0 Depression Plan : Screen was negative Anxiety Screening: Alcohol Screening: Substance Abuse Screening: Pain: Pain Medications: Patient does not take any opioid medications BMI: Body mass index is 26.75 kg/m??. The BMI is above average. The patient received dietary education because they have an above normal BMI. Functional Ability and Level of Safety Review Health Status: In general, the patient reports health as: good In general, patient reports life as: excellent Patient reports sleep pattern as: sleeping well Have you seen a dentist in the last year?: Yes Activity of Daily Living (ADLs): Do you need help from others for your personal care such as eating, dressing, toileting, or gettingaround the house?: No Do you experience incontinence?: No Instrumental Activities of Daily Living (IADLs): Do you need help with using the telephone?: No Do you need help with shopping?: No Do you need help with food preparation?: No Do you need help with housekeeping?: No Do you need help with laundry?: No Do you need help handling finances?: No Do you drive?: Yes Do you manage your own medication?: Yes, independent Physical Activity: Do you exercise for about 20 minutes or more three days a week?: Yes, always Nutritional Assessment: Do you eat a balanced diet including daily serving of fruits, vegetables, and whole grains?: Yes, always Social Influencer of Health (SIOH): Sexual Health: Have you been bothered by sexual problems: No Fall Risk: Have you fallen in the past year? no. Are you worried about falling? no. . Hearing: No data recorded Vision Screening: Required for Medicare Initial Preventative Physical Exam (IPPE) No data recorded Review of Systems Review of Systems Objective BP 130/70 (BP Location: Right arm, Patient Position: Sitting, BP Cuff Size: Adult long) Pulse 72 Temp 36.8 ??C (98.2 ??F) (Temporal) Ht 1.905 m (75 ) Wt 97.1 kg (214 lb) BMI 26.75 kg/m?? SpO2: 98 % Physical Exam Cardiovascular heart sounds normal lungs decreased breath sound abdomen negative GREEN HIDE INSPECTOR nonfocal extremities no edema. Assessment/Plan Patient presented today for an Initial Medicare Wellness Visit with management of chronic condition(s). Assessment & Plan Cardiomyopathy, unspecified type (CMS/HCC) Global hypokinesis EF of 45% on echo done in 2023 with A-fib ,continue Lasix ,warfarin and metoprolol. Orders: CBC and differential; Future Comprehensive metabolic panel; Future Lipid panel with reflex to direct LDL; Future Thyroid stimulating hormone; Future Primary hypertension Hypertension is under control. Orders: CBC and differential; Future Comprehensive metabolic panel; Future Lipid panel with reflex to direct LDL; Future Thyroid stimulating hormone; Future Hypercholesterolemia Hyperlipidemia ,stable on Lipitor. Orders: CBC and differential; Future Comprehensive metabolic panel; Future Lipid panel with reflex to direct LDL; Future Thyroid stimulating hormone; Future Advance Care Planning Discussion: Advance Care Planning was discussed. Vladimir reports that he does not have advance directives or surrogate decision maker. Patient has not identified their surrogate decision maker. During the visit we discussed: Available Advanced Directive forms discussed A total time of 16 minutes or greater was spent on Advance Care Planning today :No Fall Prevention Education Discussed: clear pathways/stairs Health Maintenance Topic Date Due DTaP,Tdap,and Td Vaccines (1 - Tdap) Never done Zoster Vaccines (1 of 2) Never done RSV Immunization Patients 60+ Years Old (1 - 1-dose 75+ series) Never done Depression Screening Never done Social Influencers of Health Screening Never done Medicare Annual Wellness Visit Never done Hypertension/CHF/CAD Annual BMP Blood Test 05/23/2024 Falls Risk Assessment 09/30/2025 Cholesterol Screening (Lipid Panel) 12/04/2026 Influenza Vaccine Completed Pneumococcal Vaccine: 65+ Years Completed COVID-19 Vaccine Completed HIB Vaccines Aged Out Hepatitis B Vaccines Aged Out IPV Vaccines Aged Out Hepatitis A Vaccines Aged Out MMR Vaccines Aged Out Varicella Vaccines Aged Out Meningococcal ACWY Vaccine Aged Out HPV Vaccines Aged Out RSV Immunization Patients Under 20 months Aged Out Kirk Randle MD INTERNAL MEDICINE - [address] [address] Dept: [phone] Dept documented in this encounter Plan of Treatment Upcoming Encounters Date Type Department Care Team ([facility] st Contact Info) Description 03/01/2025 11:00 AM EDT Office Visit Internal Medicine - [address] [phone] Kirk Randle MD [address] [place] [id number] 04/19/2025 10:10 AM EDT Office Visit [facility] [address] [place] [phone] Virgie Trivedi NP [address] [place] [address] [address] [place] [address] 07/14/2025 1:00 PM EST Appointment [facility] Ultrasound [address] [place] [phone] documented as of this encounter Results * Thyroid stimulating hormone (09/30/2024 10:13 AM EST) [facility] TSH 3.07 0.40 - 4.00 mcIU/mL LAB CHEMISTRY METHOD 09/30/2024 12:21 PM EST [facility] Blood Venous blood specimen / Unknown Venipuncture / Unknown 09/30/2024 10:13 AM EST 09/30/2024 11:01 AM EST Kirk Randle MD LAB BLOOD ORDERABLES [facility] [address] [place] [address], * Lipid panel with reflex to direct LDL (09/30/2024 10:13 AM EST) [facility] Cholesterol 117 0 - 200 mg/dL LAB CHEMISTRY METHOD 09/30/2024 1:14 PM EST [facility] Triglycerides 77 0 - 150 mg/dL LAB CHEMISTRY METHOD 09/30/2024 1:14 PM EST [facility] HDL 48 >=40 mg/dL LAB CHEMISTRY METHOD 09/30/2024 1:14 PM EST [facility] LDL Calculated 54 0 - 100 mg/dL LAB CHEMISTRY METHOD 09/30/2024 1:14 PM EST [facility] VLDL Cholesterol Ric 15.4 mg/dL LAB CHEMISTRY METHOD 09/30/2024 1:14 PM [facility] Non HDL Chol. (LDL+VLDL) 69 <145 mg/dL LAB CHEMISTRY METHOD 09/30/2024 1:14 PM [facility] Chol/HDL Ratio 2.4 0.0 - 4.4 LAB CHEMISTRY METHOD 09/30/2024 1:14 PM [facility] Blood Venous blood specimen / Unknown Venipuncture / Unknown 09/30/2024 10:13 AM EST 09/30/2024 11:01 AM EST Kirk Randle MD LAB BLOOD ORDERABLES [facility] [address] [place] [address], * (ABNORMAL) Comprehensive metabolic panel (09/30/2024 10:13 AM EST) Sodium 140 133 - 145 mmol/L LAB CHEMISTRY METHOD 09/30/2024 1:14 PM [facility] Potassium 4.2 3.5 - 5.5 mmol/L LAB CHEMISTRY METHOD 09/30/2024 1:14 PM [facility] Chloride 106 96 - 110 mmol/L LAB CHEMISTRY METHOD 09/30/2024 1:14 PM [facility] CO2 27 21 - 32 mmol/L LAB CHEMISTRY METHOD 09/30/2024 1:14 PM [facility] Anion Gap 7 3 - 11 LAB CHEMISTRY METHOD 09/30/2024 1:14 PM [facility] Glucose 92 70 - 100 mg/dL LAB CHEMISTRY METHOD 09/30/2024 1:14 PM [facility] BUN 27(H) 5 - 25 mg/dL LAB CHEMISTRY METHOD 09/30/2024 1:14 PM [facility] Creatinine 1.23 0.70 - 1.30 mg/dL LAB CHEMISTRY METHOD 09/30/2024 1:14 PM [facility] eGFR 59(L) >=60 mL/min/1. 73m2 LAB CHEMISTRY METHOD 09/30/2024 1:14 PM [facility] Comment:Calculation based on the??Chronic Kidney Disease Epidemiology Collaboration (CKD-EPI) equation refit??without adjustment for race. BUN/Creatinine Ratio 22.0 LAB CHEMISTRY METHOD 09/30/2024 1:14 PM [facility] Calcium 9.9 8.5 - 10.5 mg/dL LAB CHEMISTRY METHOD 09/30/2024 1:14 PM [facility] AST (SGOT) 42 10 - 42 unit/L LAB CHEMISTRY METHOD 09/30/2024 1:14 PM [facility] ALT (SGPT) 35 10 - 60 unit/L LAB CHEMISTRY METHOD 09/30/2024 1:14 PM [facility] Alkaline Phosphatase 97 42 - 121 unit/L LAB CHEMISTRY METHOD 09/30/2024 1:14 PM [facility] Total Protein 7.1 6.0 - 8.0 g/dL LAB CHEMISTRY METHOD 09/30/2024 1:14 PM [facility] Albumin 4.0 3.2 - 5.0 g/dL LAB CHEMISTRY METHOD 09/30/2024 1:14 PM [facility] Total Bilirubin 1.2 0.0 - 1.4 mg/dL LAB CHEMISTRY METHOD 09/30/2024 1:14 PM [facility] Blood Venous blood specimen / Unknown Venipuncture / Unknown 09/30/2024 10:13 AM EST 09/30/2024 11:01 AM EST Kirk Randle MD LAB BLOOD ORDERABLES [facility] [address] [place] [address], documented in this encounter Visit Diagnoses Diagnosis Primary hypertension- Primary Unspecified essential hypertension Cardiomyopathy, unspecified type (CMS/HCC) Hypercholesterolemia Pure hypercholesterolemia documented in this encounter Orders Lab Orders Without Results Count Last Ordered D ate First Ordered Date LIPID PANEL WITH REFLEX TO DIRECT LDL 1 documented in this encounter Additional Health Concerns Assessment Noted Time PHQ-9 Depression Total Score: 0 09/30/19 25 9:22 AM EST A fall risk assessment has been complete d for the patient 09/30/2024 9:20 AM EST documented as of this encounter Care Teams Order Processing Specialist Relationship Specialty Start Date End Date Kirk Randle MD [address] [facility] [address] [place] [address] PCP - General Internal Medicine 07/12/20 documented as of this encounter
--- OUTSIDE RECORDS SUMMARY | 2024-10-13 11:10 | XMS_ITS | Encounter Summary ---
Author Organization [facility] Address [address] [place] [address] Care Team Providers Care Merchandise Marker Name Role Phone Ced Victoria MD Unavailable [phone] Virgie Trivedi NP Unavailable [phone] Kirk Randle MD Primary Care Provider [phone] Alana Celaya NP Unavailable [phone] Encounter Details Date Type Department Care Team Description 08/16/2021 Computer Lab Para Professional Report Medical Records [address] [place] [phone] Ileana Renee MD Social History Tobacco Use Types Packs/Day [...] on filedocumented in this encounter Care Teams Merchandise Marker Relationship Specialty Start Date End Date Kirk Randle MD [address] [place] [address] [address] [place] [address] PCP - General Internal Medicine 06/05/21 Ced Victoria MD [address] [place] [address] [address] [place] [address] Protective Signal Repairer Cardiovascular Disease 04/05/21 Virgie Trivdei NP [address] [place] [address] [address] [place] [address] Nurse Practitioner Cardiology 04/05/21 Alana Celaya NP [address] [place] [address] [facility] [place] [place] [address] Nurse Practitioner Cardiology 07/17/23 documented as of this encounter
--- OUTSIDE RECORDS SUMMARY | 2024-10-13 11:10 | XMS_ITS | Encounter Summary ---
Author Organization [facility] Address [address] [place] [address] Care Team Providers Care Utility Forester Name Role Phone Ced Victoria MD Unavailable [phone] Virgie Trivedi NP Unavailable [phone] Kirk Randle MD Primary Care Provider [phone] Alana Celaya NP Unavailable [phone] Reason for Visit * Reason Onset Date Comments Automation Qa Lead Feedback 08/22/2021 NILAM FOX Encounter Details Date Type Department Care Team Description 08/22/2021 Telephone Internal Medicine - [address], [address] [place] [address] Kirk Randle MD [address] [place] [address] Automation Qa Lead Feedback (NILAM FOX) Social History Tobacco Use Types Packs/Day Years [...] Miscellaneous Notes * Telephone Encounter - Judi Edmond - 08/22/2021 4:04 PM EST [facility] Review Request Submission Status[ Save Response to Batch ] Request: [id number] [id number] Change Healthcare Trace #: [id number] Subscriber: VLADIMIR FLYNN : 1940 Submitter : KIRK RANDLE Submitter Type: Provider Referral (#[id number]) Specialty Care Review Type: Initial Certification Status : Certified in total Service Type : Medical Care Place Of Service : Office Visit : 1 Service Date : 08/28/2021-08/28/2022 Service Providers Provider Name ID Provider Type NILAM FOX NPI : [id number] Service Provider * Telephone Encounter - Paris Kirit - 08/22/2021 1:14 PM EST What insurance does the patient have today? [facility] Effective 06/09/09: BS will not retro referral [...] insurance must be obtained and registered in [facility] or their referral can not be processed. Is this a retro request? NO. If yes for what date of service do you need the retro referral? N/A Who is calling to request this referral? [facility] If the caller is not the patient, what is their name? OFFICE Ask the patient WHO referred them to this specialty: Patient self referred FIRST and LAST NAME of SPECIALIST PATIENT is seeing: NILAM FOX #OF VISITS: 1 (COVERING PROVIDER) What specialty is this? WOUND CARE DIAGNOSIS Patient is being seen for (Not a body part or a procedure): RIGHT AND LEFT HEEL ULCERS Have you seen this SPECIALIST for this PROBLEM/DX before?NO If YES, when: Have you checked REVIEW or the APPT DESK to see if this referral has already been done or has visits left? YES Is this visit:Follow Up Address of Specialist:[address] [place] [address] Phone # of Specialist:[phone] Fax #: (if applicable):[phone] Does patient have an appointment scheduled?: YES Date of appointment- (including a retro-request): 08/28/21 Is this appointment related to: Not MVA, WC or Surgery related documented in this encounter Plan of Treatment Not on file documented as of this encounter Visit Diagnoses Not on filedocumented in this encounter Care Teams Utility Forester Relationship Specialty Start Date End Date Kirk Randle MD [address] [place] [address] [place] [address] PCP - General Internal Medicine 06/05/21 Ced Victoria MD [address] [place] [address] [place] [address] Wet Trimmer Cardiovascular Disease 04/05/21 Virgie Trivedi NP [address] [place] [address] [place] [address] Nurse Practitioner Cardiology 04/05/21 Alana Celaya NP [address] [place] [address] [facility] [place] [address] Nurse Practitioner Cardiology 07/17/23 documented as of this encounter
--- OUTSIDE RECORDS SUMMARY | 2024-10-13 11:10 | XMS_ITS | Encounter Summary ---
Author Organization [facility] Address [address] [place] [address] Care Team Providers Care Cigar Head Holer Name Role Phone Ced Victoria MD Unavailable [phone] Virgie Trivedi NP Unavailable [phone] Kirk Randle MD Primary Care Provider [phone] Alana Celaya NP Unavailable [phone] Encounter Details Date Type Department Care Team Description 04/29/2023 Orders Only Medical Records [address] [place] [address] Abstract, Provider Social History Tobacco Use Types [...] suspected to have Coronavirus/COVID-19? No / Unsure 04/25/2023 2:41 PM EDT documented as of this encounter Plan of Treatment Not on file documented as of this encounter Procedures Procedure Name Priority Date/Time Associated Diagnosis Comments OUTSIDE LAB Routine 04/10/2023 OUTSIDE LAB Routine 02/13/2023 documented in this encounter Results * OUTSIDE LAB (04/10/2023) Provider Abstract LAB * OUTSIDE LAB (02/13/2023) Provider Abstract LAB documented in this encounter Visit Diagnoses Not on filedocumented in this encounter Care Teams Cigar Head Holer Relationship Specialty Start Date End Date Kirk Randle MD [address] [place] [address] [address] [place] [address] PCP - General Internal Medicine 06/05/21 Ced Victoria MD [address] [place] [address] [address] [place] [address] Flight Data Technician Cardiovascular Disease 04/05/21 Virgie Trivedi NP [address] [place] [address] [address] [place] [address] Nurse Practitioner Cardiology 04/05/21 Alana Celaya NP [address] [place] [address] [facility] [place] [address] Nurse Practitioner Cardiology 07/17/23 documented as of this encounter
--- OUTSIDE RECORDS SUMMARY | 2024-10-13 11:10 | XMS_ITS | Encounter Summary ---
Author Organization [facility] Address [address] [place] [address] Care Team Providers Care Manager Battery Name Role Phone Kirk Randle MD Primary Care Provider [phone] Reason for Visit * Reason Comments Follow-up Encounter Details Date Type Department Care Team (Latest Contact Info) Description 10/09/2024 9:50 AM EST Office Visit [facility] Cardiology [address] [place] [id number] Bowen Victoria MD [address] [place] [address] [address] [place] [address] Atrial fibrillation, unspecified type (CMS/HCC) (Primary Dx); Coronary artery disease involving samish coronary artery of samish heart without angina pectoris; Dilated cardiomyopathy (CMS/HCC); Chronic venous insufficiency Social History Tobacco Use Types Packs/Day Years [...] Pulse 67 10/09/2024 10:14 AM EST Temperature - - Respiratory Rate - - Oxygen Saturation 96% 10/09/2024 10:14 AM EST Inhaled Oxygen Concentration - - Weight 97.5 kg (215 lb) 10/09/2024 10:14 AM EST Height 190.5 cm (6' 3 ) 10/09/2024 10:14 AM EST Body Mass Index 26.87 10/09/2024 10:14 AM EST documented in this encounter Progress Notes * Bowen Victoria MD - 10/09/2024 9:50 AM ESTAssociated Problem(s): Atrial fibrillation (CMS/HCC) Patient with a history of A-fib chronically anticoagulated with Coumadin for an elevated CHADS2 score. No bleeding issues no symptomatic palpitations no lightheadedness or dizziness no dyspnea. Patient is doing well otherwise. Orders: ECG 12 lead * Bowen Victoria MD - 10/09/2024 9:50 AM ESTAssociated Problem(s): CAD (coronary artery disease) Patient denies chest pain history coronary disease with prior stenting of the right coronary in 2003 with evidence of a previous myocardial infarction on noninvasive testing no ischemia identified * Bowen Victoria MD - 10/09/2024 9:50 AM ESTAssociated Problem(s): Cardiomyopathy (CMS/HCC) Patient with mildly decreased left ventricular ejection fraction on guideline directed therapy titrated for HFrEF * Bowen Victoria MD - 10/09/2024 9:50 AM ESTAssociated Problem(s): Chronic venous insufficiency Chronic lower extremity venous insufficiency with no evidence of skin breakdown or cellulitis The above note was prepared with the help of voice recognition software. Please excuse any grammatical or spelling errors that may have occurred * Bowen Victoria MD - 10/09/2024 9:50 AM EST Images from the original note were not included. [facility] CONSULT REQUESTED BY: Dr Randle PCP: Kirk Randle MD HPI: Vladimir Flynn is a 84 y.o. old male with Male with Past medical history of coronary artery disease,status post stenting to the RCA in 2003, atrial fibrillation on Coumadin for stroke reduction, chronic venous insufficiency, hypertension, endocarditis of the mitral valve, mitral regurgitation, card iomyopathy, peripheral arterial disease, hyperlipidemia. Patient underwent exercise stress test in February 2021 in setting of syncope. Myocardial perfusion imaging demonstrated defect within the inferior and lateral wall predominantly in the right coronary artery distribution. Borderline abnormal LV systolic function with an EF of 45%. Last echocardiogram April 2022 revealed severely dilated right and left atrium. Concentric hypertrophy left ventricle. Inferior septal inferior and anterior septal hypokinesis with a reduced EF of 45 to 50%. Enlarged right ventricle and reduced right ventricular systolic function was also noted. Mild tricuspid and mitral insufficiency was noted. 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 In October 2022 patient underwent right lower extremity venous ultrasound in the setting of right leg pain. This revealed normal compression and augmentation responses throughout. All veins visualized were widely patent and there were no filling defects. This was negative for DVT. July 09, 2023, patient underwent vascular surgery with Dr. Gardner. This included a selective catheterization of right superficial femoral artery and right posterior tibial artery angioplasty in the setting of a right medial nonhealing ankle ulcer and right tibial artery occlusion. Echocardiography in 2023 shows persistent EF of 40 to 45% 1-2+ mitral insufficiency mild dilatationof the ascending aorta Last lipid profile cholesterol 127 with an LDL of 65 The patient's had no palpitations lightheadedness or dizziness no chest pain and no edema no bleeding issues History of Present Illness ACTIVE MEDICATIONS: Outpatient Medications Marked as Taking for the 10/09/24 encounter (Office Visit) with Bowen Victoria MD Medication Sig Dispense Refill acetaminophen (TYLENOL) 325 [...] every day. Do not change dietary habits. [facility] directs coumadin instructions warfarin (COUMADIN) 5 mg tablet Take 1 tablet (5 mg total) by mouth. See Admin Instructions for 90 days. May cause heavy bleeding. Take at same time every day. Do not change dietary habits. 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, total, right Hyperlipidemia Hypertension Mitral regurgitation Nontoxic multinodular goiter Osteoarthritis Peripheral arterial disease (CMS/HCC) Varicose veins with pain ALLERGIES: Allergies Allergen Reactions Clopidogrel Rash FAMILY HISTORY: Family History Problem Relation Name Age of Onset Other (Other: Non Hodgkin's lymphoma) Other Other (Other: Malignant Melanoma) Other Other (Other: kidney cancer) Other Leukemia Mother Alcohol abuse Father Other (Other: ca kidney) Brother Other (Other: Atrial fib) Sister SOCIAL HISTORY: Social History Tobacco Use Smoking status: Never Smokeless tobacco: Never Substance Use Topics Alcohol use: No Comment: rarely REVIEW OF SYSTEMS: Review of Systems Constitutional: Negative. HENT: Negative. Eyes: Negative. Cardiovascular: Negative. Respiratory: Negative. Endocrine: Negative. Hematologic/Lymphatic: Negative. Skin: Negative. Musculoskeletal: Negative. Gastrointestinal: Negative. Genitourinary: Negative. Neurological: Negative. Psychiatric/Behavioral: Negative. Allergic/Immunologic: Negative. All other systems reviewed and are negative. PHYSICAL EXAM: Vitals: 10/09/24 1014 Pulse: 67 SpO2: 96% Weight: 97.5 kg (215 lb) Height: 1.905 m (75 ) Physical Exam Constitutional: Appearance: Normal appearance. HENT: Head: Normocephalic and atraumatic. Nose: Nose normal. Eyes: Extraocular Movements: Extraocular movements intact. Pupils: Pupils are equal, round, and reactive to light. Cardiovascular: Rate and Rhythm: Rhythm irregular. Pulmonary: Breath sounds: Normal breath sounds. Abdominal: General: Abdomen is flat. Bowel sounds are normal. Palpations: Abdomen is soft. Musculoskeletal: General: Normal range of motion. Cervical back: Normal range of motion and neck supple. Skin: General: Skin is warm and dry. Neurological: General: No focal deficit present. Mental Status: He is alert. Psychiatric: Mood and Affect: Mood normal. EKG: Encounter Date: 10/09/24 ECG 12 lead Result Value Ventricular Rate ECG 49 Atrial Rate 51 QRS Duration 94 Q-T Interval 418 QTc 377 R [place] 66 T [place] -5 ECG Interpretation Atrial fibrillation with slow ventricular response Possible Inferior infarct (cited on or before 02-APR-2021) Abnormal ECG When compared with ECG of 24-OCT-2022 16:17, QT has shortened *Note: Due to a large number of results and/or encounters for the requested time period, some results have not been displayed. A complete set of results can be found in Results Review. TESTING: ASSESSMENT/PLAN: Assessment & Plan Atrial fibrillation, unspecified type (CMS/HCC) Patient with a history of A-fib chronically anticoagulated with Coumadin for an elevated CHADS2 score. No bleeding issues no symptomatic palpitations no lightheadedness or dizziness no dyspnea. Patient is doing well otherwise. Orders: ECG 12 lead Coronary artery disease involving samish coronary artery of samish heart without angina pectoris Patient denies chest pain history coronary disease with prior stenting of the right coronary in 2003 with evidence of a previous myocardial infarction on noninvasive testing no ischemia identified Dilated cardiomyopathy (CMS/HCC) Patient with mildly decreased left ventricular ejection fraction on guideline directed therapy titrated for HFrEF Chronic venous insufficiency Chronic lower extremity venous insufficiency with no evidence of skin breakdown or cellulitis The above note was prepared with the help of voice recognition software. Please excuse any grammatical or spelling errors that may have occurred Assessment & Plan The [facility] team will continue to co-manage this patient following the plan of care as established by my initial visit and as per AHA guidelines for ongoing management and surveillance of Atrial Fibrillation and Heart Failure This will include medication titration, initiation of appropriate medicationsand further titration, and diagnostic studies to manage this disease process. documented in this encounter Plan of Treatment Upcoming Encounters Date Type Department Care Team (Late st Contact Info) Description 03/01/2025 11:00 AM EDT Office Visit Internal Medicine - [place] [address] [facility] [address] [place] [phone] Kirk Randle MD [address] [facility] [address] [place] [address] 04/19/2025 10:10 AM EDT Office Visit [facility] [address] [place] [phone] Virgie Trivedi NP [address] [place] [address] [address] [place] [address] 07/14/2025 1:00 PM EST Appointment [facility] [address] [place] [phone] documented as of this encounter Procedures Procedure Name Priority Date/Time Associated Diagnosis Comments ECG 12-LEAD Routine 10/09/2024 10:25 AM EST Atrial fibrillation, unspecified type (CMS/HCC) documented in this encounter Results * ECG 12 lead (10/09/2024 10:25 AM EST) Ventricular Rate ECG 49 BPM GEMUSE Atrial Rate 51 BPM GEMUSE QRS Duration 94 ms GEMUSE Q-T Interval 418 ms GEMUSE QTc 377 ms GEMUSE R [place] 66 degrees GEMUSE T [place] -5 degrees GEMUSE ECG Interpretation Atrial fibrillation with slow ventricular response Possible Inferior infarct (cited on or before 02-APR-2021) Abnormal ECG When compared with ECG of 24-OCT-2022 16:17, QT has shortened Confirmed by Kathya VICTORIA, BOWEN ([id number]) on 10/09/2024 5:06:39 PM GEMUSE 10/09/2024 10:2 5 AM EST 10/09/2024 5:06 PM EST Bowen Victoria MD ECG ORDERABLES GEMUSE documented in this encounter Visit Diagnoses Diagnosis Atrial fibrillation, unspecified type (CMS/HCC)- Primary Coronary artery disease involving samish coronary artery of samish heart without angina pectoris Dilated cardiomyopathy (CMS/HCC) Other primary cardiomyopathies Chronic venous insufficiency Unspecified venous (peripheral) insufficiency documented in this encounter Additional Health Concerns Assessment Noted Time PHQ-9 Depression Total Score: 0 09/30/19 9:22 AM EST A fall risk assessment has been complete d for the patient 09/30/2024 9:20 AM EST documented as of this encounter Care Teams Manager Battery Relationship Specialty Start Date End Date Kirk Randle MD [address] [place] [address] PCP - General Internal Medicine 07/12/20 documented as of this encounter
--- OUTSIDE RECORDS SUMMARY | 2024-10-13 11:11 | XMS_ITS | Encounter Summary ---
Author Organization [facility] Address [address] [place] [address] Care Team Providers Care Blanker Operator Name Role Phone Ced Victoria MD Unavailable [phone] Virgie Trivedi NP Unavailable [phone] Kirk Randle MD Primary Care Provider [phone] Alana Celaya NP Unavailable [phone] Encounter Details Date Type Department Care Team Description 10/28/2022 Hospital Medical Records [address] [place] [address] Marielos Rosales MD Social History Tobacco Use Types Packs/Day [...] on filedocumented in this encounter Care Teams Blanker Operator Relationship Specialty Start Date End Date Kirk Randle MD [address] [place] [address] [address] [place] [address] PCP - General Internal Medicine 06/05/21 Ced Victoria MD [address] [place] [address] [address] [place] [address] Hematology Oncology Consultant Cardiovascular Disease 04/05/21 Virgie Trivedi NP [address] [place] [address] [address] [place] [address] Nurse Practitioner Cardiology 04/05/21 Alana Celaya NP [address] [place] [address] [facility] [place] [address] Nurse Practitioner Cardiology 07/17/23 documented as of this encounter
--- OUTSIDE RECORDS SUMMARY | 2024-10-13 11:11 | XMS_ITS | Encounter Summary ---
Author Organization [facility] Address [address] [place] [address] Care Team Providers Care Drop Forger Name Role Phone Ced Victoria MD Unavailable [phone] Virgie Trivedi NP Unavailable [phone] Kirk Randle MD Primary Care Provider [phone] Alana Celaya NP Unavailable [phone] Encounter Details Date Type Department Care Team Description 10/24/2022 Hospital Medical Records [address] [place] [address] Felix Carlton DPM Social History Tobacco Use Types Packs/Day Years [...] on filedocumented in this encounter Care Teams Drop Forger Relationship Specialty Start Date End Date Kirk Randle MD [address] [place] [address] [address] [place] [address] PCP - General Internal Medicine 06/05/21 Ced Victoria MD [address] [place] [address] [address] [place] [address] Touch Up Edger Cardiovascular Disease 04/05/21 Virgie Trivedi NP [address] [place] [address] [address] [place] [address] Nurse Practitioner Cardiology 04/05/21 Alana Celaya NP [address] [place] [address] [facility] [place] [address] Nurse Practitioner Cardiology 07/17/23 documented as of this encounter
--- OUTSIDE RECORDS SUMMARY | 2024-10-13 11:11 | XMS_ITS | Encounter Summary ---
Author Organization [facility] Address [address] [place] [address] Care Team Providers Care Lozenge Maker Name Role Phone Ced Victoria MD Unavailable [phone] Virgie Trivedi NP Unavailable [phone] Kirk Randle MD Primary Care Provider [phone] Alana Celaya NP Unavailable [phone] Encounter Details Date Type Department Care Team Description 09/15/2021 Home Health Certification Medical Records [address] [place] [address] Social History Tobacco Use Types Packs/Day Years [...] on filedocumented in this encounter Care Teams Lozenge Maker Relationship Specialty Start Date End Date Kirk Randle MD [address] [place] [address] [address] [place], [place] [phone] PCP - General Internal Medicine 06/05/21 Ced Victoria MD [address] [place] [address] [address] [place] [address] Heat Seal Operator Cardiovascular Disease 04/05/21 Virgie Trivedi NP [address] [place] [address] [address] [place] [address] Nurse Practitioner Cardiology 04/05/21 Alana Celaya NP [address] [place] [address] [facility] [place] [address] Nurse Practitioner Cardiology 07/17/23 documented as of this encounter
--- OUTSIDE RECORDS SUMMARY | 2024-10-13 11:11 | XMS_ITS | Encounter Summary ---
Author Organization [facility] Address [address] [place] [address] Care Team Providers Care Paediatrician Name Role Phone Ced Victoria MD Unavailable [phone] Virgie Trivedi NP Unavailable [phone] Kirk Randle MD Primary Care Provider [phone] Alana Celaya NP Unavailable [phone] Encounter Details Date Type Department Care Team Description 10/23/2022 Hospital Medical Records [address] [place] [address] Kimberley Rios PA-C [address] [facility] [address] [place] [address] Social History Tobacco Use Types [...] on filedocumented in this encounter Care Teams Paediatrician Relationship Specialty Start Date End Date Kirk Randle MD [address] [place] [address] [address] [place] [address] PCP - General Internal Medicine 06/05/21 Ced Victoria MD [address] [place] [address] [address] [place] [address] Rooming House Keeper Cardiovascular Disease 04/05/21 Virgie Trivedi NP [address] [place] [address] [address] [place] [address] Nurse Practitioner Cardiology 04/05/21 Alana Celaya NP [address] [place] [address] [facility] [place] [address] Nurse Practitioner Cardiology 07/17/23 documented as of this encounter
--- OUTSIDE RECORDS SUMMARY | 2024-10-13 11:11 | XMS_ITS | Encounter Summary ---
Author Organization [facility] Address [address] [place] [address] Care Team Providers Care Allied Health Instructor Name Role Phone Ced Victoria MD Unavailable [phone] Virgie Trivedi NP Unavailable [phone] Kirk Randle MD Primary Care Provider [phone] Alana Celaya NP Unavailable [phone] Encounter Details Date Type Department Care Team Description 10/23/2022 Hospital Medical Records [address] [place] [address] Raffy Gardner MD [address] [address] Social History Tobacco Use Types [...] on filedocumented in this encounter Care Teams Allied Health Instructor Relationship Specialty Start Date End Date Kirk Randle MD [address] [place] [address] [address] [place] [address] PCP - General Internal Medicine 06/05/21 Ced Victoria MD [address] [place] [address] [address] [place] [address] Photovoltaic Power Systems Engineer Cardiovascular Disease 04/05/21 Virgie Trivedi NP [address] [place] [address] [address] [place] [address] Nurse Practitioner Cardiology 04/05/21 Alana Celaya NP [address] [place] [address] [facility] [place] [address] Nurse Practitioner Cardiology 07/17/23 documented as of this encounter
--- OUTSIDE RECORDS SUMMARY | 2024-10-13 11:11 | XMS_ITS | Encounter Summary ---
Author Organization [facility] Address [address] [place] [address] Care Team Providers Care Tissue Specialist Name Role Phone Ced Victoria MD Unavailable [phone] Virgie Trivedi NP Unavailable [phone] Kirk Randle MD Primary Care Provider [phone] Alana Celaya NP Unavailable [phone] Encounter Details Date Type Department Care Team Description 11/13/2022 Home Health Certification Medical Records [address] [place] [address] Social History Tobacco Use Types Packs/Day Years [...] suspected to have Coronavirus/COVID-19? No / Unsure 11/14/2022 9:34 AM EST documented as of this encounter Plan of Treatment Not on file documented as of this encounter Visit Diagnoses Not on filedocumented in this encounter Care Teams Tissue Specialist Relationship Specialty Start Date End Date Kirk Randle MD [address] [place] [address] [address] [place] [address] PCP - General Internal Medicine 06/05/21 Ced Victoria MD [address] [place] [address] [address] [place] [address] Mirror Specialist Cardiovascular Disease 04/05/21 Virgie Trivedi NP [address] [place] [address] [address] [place] [address] Nurse Practitioner Cardiology 04/05/21 Alana Celaya NP [address] [place] [address] [facility] [place] [address] Nurse Practitioner Cardiology 07/17/23 documented as of this encounter
--- OUTSIDE RECORDS SUMMARY | 2024-10-13 11:11 | XMS_ITS | Encounter Summary ---
Author Organization [facility] Address [address] [place] [address] Care Team Providers Care Tile Trimmer Name Role Phone Ced Victoria MD Unavailable [phone] Virgie Trivedi NP Unavailable [phone] Kirk Randle MD Primary Care Provider [phone] Alana Celaya NP Unavailable [phone] Encounter Details Date Type Department Care Team Description 2023 Orders Only Medical Records [address] [place] [address] Felix Carlton DPM Social History Tobacco Use [...] suspected to have Coronavirus/COVID-19? No / Unsure 12/12/2022 11:01 AM EDT documented as of this encounter Plan of Treatment Not on file documented as of this encounter Procedures Procedure Name Priority Date/Time Associated Diagnosis Comments OUTSIDE PATHOLOGY Routine 12/26/2022 documented in this encounter Results * OUTSIDE PATHOLOGY (12/26/2022) Felix EliseBianka [facility] documented in this encounter Visit Diagnoses Not on filedocumented in this encounter Care Teams Tile Trimmer Relationship Specialty Start Date End Date Kirk Randle MD [address] [place] [address] [address] [place] [address] PCP - General Internal Medicine 06/05/21 Ced Victoria MD [address] [place] [address] [address] [place] [address] Dental Appliance Mechanic Cardiovascular Disease 04/05/21 Virgie Trivedi NP [address] [place] [address] [address] [place] [address] Nurse Practitioner Cardiology 04/05/21 Alana Celaya NP [address] [place] [address] [facility] [place] [address] Nurse Practitioner Cardiology 07/17/23 documented as of this encounter
== END 2024-10-13 10:35 | disposition home or self-care (01) ==
LOC: HO.ACS 10:22
PROVIDERS: PCP Internal Medicine; Visit Provider Internal Medicine
DX: Z79.01 Long term (current) use of anticoagulants (principal)

== ENCOUNTER → 2024-10-13 10:22 | Outpatient (BNVA) | payer MEDICARE, SELFPAY | PROVIDERS: PCP Internal Medicine; Visit Provider Internal Medicine | DX: I48.91 Unspecified atrial fibrillation (principal); Z79.01 Long term (current) use of anticoagulants; Z51.81 Encounter for therapeutic drug level monitoring | CPT/HCPCS: 85610; 99211 ==

== ENCOUNTER 2024-11-10 09:42 | Outpatient (AMB) | payer MEDICARE, SELFPAY ==
[2024-11-10 09:58] LABS: Prothrombin Time Whole Bld POC 37.2 sec (11.1-13.5); ~PT, ~INR - Anti Coag Clinic 3.1 (0.9-1.1)
--- NOTE | 2024-11-10 09:58 | MHC.OFFVISCO ---
Intake Intake Visit Reasons: Anticoagulation Allergies clopidogrel [From PLAVIX] Allergy (Unknown, Verified 11/10/24 09:52) RASH Medication List - Last Reconciled 11/10/24 by Meche Kitchen RN acetaminophen ER 650 mg PO Q12H PRN ascorbic acid (vitamin C) 500 mg PO DAILY atorvastatin 20 mg PO DAILY B-complex with vitamin C 1 tab PO DAILY calcium carb-mag ox-zinc sulf 1 tab PO DAILY coenzyme Q10 10 mg PO TID ferrous sulfate 325 mg PO DAILY furosemide 20 mg PO DAILY metoprolol succinate ER 25 mg PO DAILY omega 3-dbo-zyn-fish oil 1,000 (120-180) mg (Fish Oil) 1 cap PO DAILY saw palmetto 500 mg PO BID vitamin E 400 units PO DAILY warfarin (Jantoven) 2.5 tabs See Protocol PO YELITZA@0900 Nursing Note INR 3.1-?? out of therapeutic range of 2-3 Medications and supplements reviewed Patient status: no c.o Medications or supplements: no changes Diet: same, does not eat cooked greens Denies any signs and symptoms of bleeding or clotting or unusual bruising Bleeding, bruising, clotting discussed Nutritional guidance given: eat a green today Dose: 2.5mg x 7 F/U INR Date : pt req 4 weeks?? Patient verbalizing understanding of instructions given. Anti-Coag Initial Assessment Social Hx Patient Tobacco Use Status: Never used Tobacco alcohol intake: unknown Coding Level of Care Code Est Patient Level 1 Diagnoses Current use of anticoagulant therapy Z79.01 Assessment & Plan Assessment & Plan (1) Current use of anticoagulant therapy: Code(s): Z79.01 - oil heaterman (current) use of anticoagulants Category: Medical
--- OUTSIDE RECORDS SUMMARY | 2024-11-10 11:01 | XMS_ITS | Encounter Summary ---
Author Organization [facility] Address [address] [place] [address] Care Team Providers Care Computer Sciences Professor Name Role Phone Ced Victoria MD Unavailable [phone] Virgie Trivedi NP Unavailable [phone] Kirk Randle MD Primary Care Provider [phone] Alana Celaya NP Unavailable [phone] Encounter Details Date Type Department Care Team Description 09/17/2023 Orders Only Medical Records [address] [place] [address] [place] Social History Tobacco Use Types [...] on filedocumented in this encounter Care Teams Computer Sciences Professor Relationship Specialty Start Date End Date Kirk Randle MD [address] [place] [address] [address] [place] [address] PCP - General Internal Medicine 06/05/21 Ced Victoria MD [address] [place] [address] [address] [place] [address] Mail Processing Equipment Mechanic Cardiovascular Disease 04/05/21 Virgie Trivedi NP [address] [place] [address] [address] [place] [address] Nurse Practitioner Cardiology 04/05/21 Alana Celaya NP [address] [place] [address] [facility] [place] [address] Nurse Practitioner Cardiology 07/17/23 documented as of this encounter
--- OUTSIDE RECORDS SUMMARY | 2024-11-10 11:01 | XMS_ITS | Encounter Summary ---
Author Organization [facility] Address [address] [place] [address] Care Team Providers Care Publicity Person Name Role Phone Ced Victoria MD Unavailable [phone] Virgie Trivedi NP Unavailable [phone] Kirk Randle MD Primary Care Provider [phone] Alana Celaya NP Unavailable [phone] Encounter Details Date Type Department Care Team Description 09/12/2023 Orders Only Medical Records [address] [place] [address] [place] Social History Tobacco Use Types [...] Date/Time Associated Diagnosis Comments OUTSIDE LAB Routine 08/27/2023 documented in this encounter Results * OUTSIDE LAB (08/27/2023) [place] documented in this encounter Visit Diagnoses Not on filedocumented in this encounter Care Teams Publicity Person Relationship Specialty Start Date End Date Kirk Randle MD [address] [place] [address] [address] [place] [address] PCP - General Internal Medicine 06/05/21 Ced Victoria MD [address] [place] [address] [address] [place] [address] Surgical Tech Cardiovascular Disease 04/05/21 Virgie Trivedi NP [address] [place] [address] [address] [place] [address] Nurse Practitioner Cardiology 04/05/21 Alana Celaya NP [address] [place] [address] [facility] [place] [address] Nurse Practitioner Cardiology 07/17/23 documented as of this encounter
--- OUTSIDE RECORDS SUMMARY | 2024-11-10 11:02 | XMS_ITS | Encounter Summary ---
Author Organization [facility] Address [address] [place] [address] Care Team Providers Care Teaching Associate Name Role Phone Kirk Randle MD Primary Care Provider [phone] Ced Victoria MD Unavailable [phone] Virgie Trivedi NP Unavailable [phone] Kirk Randle MD Primary Care Provider + [phone] Alana Celaya NP Unavailable [phone] Reason for Visit * Reason Onset Date Comments Hospital Procedure 04/13/2021 LEANNA 9.24.21 Encounter Details Date Type Department Care Team Description 04/13/2021 Telephone Cardio PVC POC 154 [address] [facility] [address] [place], [place] [id number] Parris Dyer, GILBERTO 300 [facility] [address] [place] [address] Hospital Procedure (LEANNA 9.24.21) Social [...] Scheduled on 06.02.21 per patients request at [facility] w/ YZ at 130pm. 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 Care Teams Teaching Associate Relationship Specialty Start Date End Date Kirk Randle MD PCP - General Internal Medicine 07/12/20 06/04/21 Kirk Randle MD PCP - General Internal Medicine 06/05/21 Ced Victoria MD [address] [place] [address] [address] [place] [address] Endoscopy Tech Cardiovascular Disease 04/05/21 Virgie Trivedi NP [address] [place] [address] [address] [place] [address] Nurse Practitioner Cardiology 04/05/21 Alana Cealya NP [address] [place] [address] [facility] [place] [address] Nurse Practitioner Cardiology 07/17/23 documented as of this encounter
--- OUTSIDE RECORDS SUMMARY | 2024-11-10 11:02 | XMS_ITS | Encounter Summary ---
Author Organization [facility] Address [address] [place] [address] Care Team Providers Care Graphic Designer Name Role Phone Ced Victoria MD Unavailable [phone] Virgie Trivedi NP Unavailable [phone] Kirk Randle MD Primary Care Provider [phone] Alana Celaya NP Unavailable [phone] Encounter Details Date Type Department Care Team Description 10/02/2023 Orders Only Medical Records [address] [place] [address] [place] Social History Tobacco Use Types [...] Date/Time Associated Diagnosis Comments OUTSIDE LAB Routine 11/19/2022 documented in this encounter Results * OUTSIDE LAB (11/19/2022) [place] documented in this encounter Visit Diagnoses Not on filedocumented in this encounter Care Teams Graphic Designer Relationship Specialty Start Date End Date Kirk Randle MD [address] [place] [address] [address] [place] [address] PCP - General Internal Medicine 06/05/21 Ced Victoria MD [address] [place] [address] [address] [place] [address] Supervisor Of Instruction Cardiovascular Disease 04/05/21 Virgie Trivedi NP [address] [place] [address] [address] [place] [address] Nurse Practitioner Cardiology 04/05/21 Alana Celaya NP [address] [place] [address] [facility] [place] [address] Nurse Practitioner Cardiology 07/17/23 documented as of this encounter
--- OUTSIDE RECORDS SUMMARY | 2024-11-10 11:02 | XMS_ITS | Encounter Summary ---
Author Organization [facility] Address [address] [place] [address] Care Team Providers Care Supervisor Assembly Room Name Role Phone Ced Victoria MD Unavailable [phone] Virgie Trivedi NP Unavailable [phone] Kikr Randle MD Primary Care Provider [phone] Alana Celaya NP Unavailable [phone] Encounter Details Date Type Department Care Team Description 07/28/2023 Home Health Certification Medical Records [address] [place] [address] Social History Tobacco Use Types Packs/Day Years [...] suspected to have Coronavirus/COVID-19? No / Unsure 07/25/2023 2:11 PM EST documented as of this encounter Plan of Treatment Not on file documented as of this encounter Visit Diagnoses Not on filedocumented in this encounter Care Teams Supervisor Assembly Room Relationship Specialty Start Date End Date Kirk Randle MD [address] [place] [address] [address] [place] [address] PCP - General Internal Medicine 06/05/21 Ced Victoria MD [address] [place] [address] [address] [place] [address] Mental Health Social Worker Cardiovascular Disease 04/05/21 Virgie Trivedi NP [address] [place] [address] [address] [place] [address] Nurse Practitioner Cardiology 04/05/21 Alana Celaya NP [address] [place] [address] [facility] [place] [address] Nurse Practitioner Cardiology 07/17/23 documented as of this encounter
--- OUTSIDE RECORDS SUMMARY | 2024-11-10 11:02 | XMS_ITS | Encounter Summary ---
Author Organization [facility] Address [address] [place] [address] Care Team Providers Care Instructor Business Education Name Role Phone Ced Victoria MD Unavailable [phone] Virgie Trivedi NP Unavailable [phone] Kirk Randle MD Primary Care Provider [phone] Alana Celaya NP Unavailable [phone] Encounter Details Date Type Department Care Team Description 06/18/2023 Orders Only Medical Records [address] [place] [address] Abstract, Provider Social History Tobacco Use Types [...] on filedocumented in this encounter Care Teams Instructor Business Education Relationship Specialty Start Date End Date Kirk Randle MD [address] [place] [address] [address] [place] [address] PCP - General Internal Medicine 06/05/21 Ced Victoria MD [address] [place] [address] [address] [place] [address] Test Facility Engineer Cardiovascular Disease 04/05/21 Virgie Trivedi NP [address] [place] [address] [address] [place] [address] Nurse Practitioner Cardiology 04/05/21 Alana Celaya NP [address] [place] [address] [facility] [place] [address] Nurse Practitioner Cardiology 07/17/23 documented as of this encounter
--- OUTSIDE RECORDS SUMMARY | 2024-11-10 11:02 | XMS_ITS | Encounter Summary ---
Author Organization [facility] Address [address] [place] [address] Care Team Providers Care Roofing Layer Name Role Phone Kirk Randle MD Primary Care Provider [phone] Ced Victoria MD Unavailable [phone] Virgie Trivedi [facility] Unavailable [phone] Kirk Randle MD Primary Care Provider [phone] Alana Celaya [facility] Unavailable [phone] Encounter Details Date Type Department Care Team Description 04/13/2021 SCAN Medical Records [address] [place] [address] Abstract, Provider Social History Tobacco Use Types [...] on filedocumented in this encounter Care Teams Roofing Layer Relationship Specialty Start Date End Date Kirk Randle MD PCP - General Internal Medicine 07/12/20 06/04/21 Kirk Randle MD PCP - General Internal Medicine 06/05/21 Ced Victoria MD [address] [place] [address] [address] [place] [address] Commodity Supervisor Cardiovascular Disease 04/05/21 Virgie Trivedi NP [address] [place] [address] [address] [place], [place] [address] Nurse Practitioner Cardiology 04/05/21 Alana Celaya NP [address] [place] [address] [facility] [place], [place] [address] Nurse Practitioner Cardiology 07/17/23 documented as of this encounter
--- OUTSIDE RECORDS SUMMARY | 2024-11-10 11:02 | XMS_ITS | Encounter Summary ---
Author Organization [facility] Address [address] [place] [address] Care Team Providers Care Functional Architect Name Role Phone Ced Victoria MD Unavailable [phone] Virgie Trivedi NP Unavailable [phone] Kirk Randle MD Primary Care Provider [phone] Alana Celaya NP Unavailable [phone] Encounter Details Date Type Department Care Team Description 07/12/2023 SCAN Medical Records [address] [place] [address] [facility] Social History Tobacco Use Types Packs/Day Years [...] on filedocumented in this encounter Care Teams Functional Architect Relationship Specialty Start Date End Date Kirk Randle MD [address] [place] [address] [address] [place] [address] PCP - General Internal Medicine 06/05/21 Ced Victoria MD [address] [place] [address] [address] [place] [address] School Psychologist Assistant Cardiovascular Disease 04/05/21 Virgie Trivedi NP [address] [place] [address] [address] [place] [address] Nurse Practitioner Cardiology 04/05/21 Alana Celaya NP [address] [place] [address] [facility] [place] [address] Nurse Practitioner Cardiology 07/17/23 documented as of this encounter
--- OUTSIDE RECORDS SUMMARY | 2024-11-10 11:02 | XMS_ITS | Encounter Summary ---
Author Organization [facility] Address [address] [place] [address] Care Team Providers Care Crumb Packer Name Role Phone Kirk Randle MD Primary Care Provider [phone] Ced Victoria MD Unavailable [phone] Virgie Trivedi MAILS SUPERVISOR Unavailable [phone] Kirk Randle MD Primary Care Provider [phone] Alana Celaya MAILS SUPERVISOR Unavailable [phone] Encounter Details Date Type Department Care Team Description 04/13/2021 SCAN Medical Records [address] [place] [address] Abstract, Provider Social History Tobacco Use Types [...] on filedocumented in this encounter Care Teams Crumb Packer Relationship Specialty Start Date End Date Kirk Randle MD PCP - General Internal Medicine 07/12/20 06/04/21 Kirk Randle MD PCP - General Internal Medicine 06/05/21 Ced Victoria MD [address] [place] [address] [address] [place] [address] Copier Field Service Technician Cardiovascular Disease 04/05/21 Virgie Trivedi NP [address] [place] [address] [address] [place], [place] [address] Nurse Practitioner Cardiology 04/05/21 Alana Celaya NP [address] [place] [address] [facility] [place], [place] [address] Nurse Practitioner Cardiology 07/17/23 documented as of this encounter
--- OUTSIDE RECORDS SUMMARY | 2024-11-10 11:02 | XMS_ITS | Encounter Summary ---
Author Organization [facility] Address [address] [place] [address] Care Team Providers Care Radial Arm Saw Operator Name Role Phone Ced Victoria MD Unavailable [phone] Virgie Trivedi NP Unavailable [phone] Kirk Randle MD Primary Care Provider [phone] Alana Celaya NP Unavailable [phone] Reason for Visit * Reason Onset Date Comments Faxed Refill 10/08/2023 Encounter Details Date Type Department Care Team Description 10/08/2023 Refill Internal Medicine - [address], [address] [place] [address] Kirk Randle MD [address] [place] [address] Faxed Refill Social History Tobacco Use Types [...] MED LIST AND IS IDENTIFIED BELOW): {MED LIST:73250) Med name: JANTOVEN 5 MG tablet (Discontinued) Dosage: 5 MG # of tablets: 90 Local pharmacy with request for 90 -day supply Instructions: Take 1 tablet by mouth daily or as instructed Did you check the pharmacy information above?: YES Patients current insurance carrier: Payor: [facility] / Plan: [place] HMO $10 [place] / Product Type: MEDICARE RISK Insurance ID #: No Subscriber Number on File documented in this encounter Plan of Treatment Not on file documented as of this encounter Visit Diagnoses Not on filedocumented in this encounter Care Teams Radial Arm Saw Operator Relationship Specialty Start Date End Date Kirk Randle MD [address] [place] [address] [address] [place] [address] PCP - General Internal Medicine 06/05/21 Ced Victoria MD [address] [place] [address] [address] [place] [address] Business Support Coordinator Cardiovascular Disease 04/05/21 Virgie Trivedi NP [address] [place] [address] [address] [place] [address] Nurse Practitioner Cardiology 04/05/21 Alana Celaya, GILBERTO [address] [place] [address] [facility] [place] [address] Nurse Practitioner Cardiology 07/17/23 documented as of this encounter
--- OUTSIDE RECORDS SUMMARY | 2024-11-10 11:02 | XMS_ITS | Encounter Summary ---
Author Organization [facility] Address [address] [place] [address] Care Team Providers Care Separations Scientist Name Role Phone Ced Victoria MD Unavailable [phone] Virgie Trivedi NP Unavailable [phone] Kirk Randle MD Primary Care Provider [phone] Alana Celaya NP Unavailable [phone] Encounter Details Date Type Department Care Team Description 07/02/2023 Orders Only Medical Records [address] [place] [address] [place] Social History Tobacco Use Types [...] on filedocumented in this encounter Care Teams Separations Scientist Relationship Specialty Start Date End Date Kirk Randle MD [address] [place] [address] [address] [place] [address] PCP - General Internal Medicine 06/05/21 Ced Victoria MD [address] [place] [address] [address] [place] [address] Military Personnel Specialist Cardiovascular Disease 04/05/21 Virgie Trivedi NP [address] [place] [address] [address] [place] [address] Nurse Practitioner Cardiology 04/05/21 Alana Celaya NP [address] [place] [address] [facility] [place] [address] Nurse Practitioner Cardiology 07/17/23 documented as of this encounter
--- OUTSIDE RECORDS SUMMARY | 2024-11-10 11:03 | XMS_ITS | Encounter Summary ---
Author Organization [facility] Address [address] [place] [address] Care Team Providers Care Police Cadet Name Role Phone Ced Victoria MD Unavailable [phone] Virgie Trivedi NP Unavailable [phone] Kirk Randle MD Primary Care Provider [phone] Alana Celaya NP Unavailable [phone] Encounter Details Date Type Department Care Team Description 03/19/2022 Executive Administrator Report Medical Records [address] [place] [id number] [place] [address] Social History Tobacco Use Types Packs/Day Years [...] on filedocumented in this encounter Care Teams Police Cadet Relationship Specialty Start Date End Date Kirk Randle MD [address] [place] [address] [address] [place] [address] PCP - General Internal Medicine 06/05/21 Ced Victoria MD [address] [place] [address] [address] [place] [address] Lime Vat Tender Cardiovascular Disease 04/05/21 Virgie Trivedi NP [address] [place] [address] [address] [place] [address] Nurse Practitioner Cardiology 04/05/21 Alana Celaya NP [address] [place] [address] [facility] [place] [address] Nurse Practitioner Cardiology 07/17/23 documented as of this encounter
--- OUTSIDE RECORDS SUMMARY | 2024-11-10 11:03 | XMS_ITS | Encounter Summary ---
Author Organization [facility] Address [address] [place] [address] Care Team Providers Care Urogynecology Physician Name Role Phone Ced Victoria MD Unavailable [phone] Virgie Trivedi NP Unavailable [phone] Kirk Randle MD Primary Care Provider [phone] Alana Celaya NP Unavailable [phone] Reason for Visit * Reason Onset Date Comments Faxed Refill 08/30/2022 Encounter Details Date Type Department Care Team Description 08/30/2022 Telephone Internal Medicine - [address], [address] [place] [address] Kirk Randle MD [address] [place] [address] Faxed Refill Social History Tobacco Use Types [...] Reason for Discontinue: no longer needed Order: [id number] Date/Time Signed: 12/05/2020 12:28 PM E-Prescribing Status: Receipt confirmed by pharmacy (12/05/2020 12:29 PM EDT) Renewals Renewal provider: Octavio Gross MD This Order Has Been Discontinued Order Status Reason By On Discontinued no longer needed Sofia Posadas M.A. 05/30/21 1053 ?? Warnings Override History Total number of overridden warnings: 1 Full Warnings History Pharmacy [facility] - SATHYA HAGAN [place] [...] MED LIST AND IS IDENTIFIED BELOW): {MED LIST:49172) Med name: JANTOVEN tablet (Discontinued) Dosage: 5 MG # of tablets: 120? Local pharmacy with request for 90 -day supply Instructions: Sig: TAKE 1/2 TABLET BY MOUTH EVERY DAY EXCEPT SATURDAY WHERE YOU WILL TAKE 1 FULL TABLET Did you check the pharmacy information above?: YES Patients current insurance carrier: Payor: [facility] / Plan: [place] HMO $10 [place] / Product Type: MEDICARE RISK Insurance ID #: No Subscriber Number on File documented in this encounter Plan of Treatment Not on file documented as of this encounter Visit Diagnoses Not on filedocumented in this encounter Care Teams Urogynecology Physician Relationship Specialty Start Date End Date Kirk Randle MD [address] [place] [address] [address] [place] [address] PCP - General Internal Medicine 06/05/21 Ced Victoria MD [address] [place] [address] [address] [place] [address] Windows Application Packager Cardiovascular Disease 04/05/21 Virgie Trivedi NP [address] [place] [address] [address] [place] [address] Nurse Practitioner Cardiology 04/05/21 Alana Celaya NP [address] [place] [address] [facility] [place] [address] Nurse Practitioner Cardiology 07/17/23 documented as of this encounter
--- OUTSIDE RECORDS SUMMARY | 2024-11-10 11:03 | XMS_ITS | Encounter Summary ---
Author Organization [facility] Address [address] [place] [address] Care Team Providers Care On Site Construction Superintendent Name Role Phone Kirk Randle MD Primary Care Provider [phone] Ced Victoria MD Unavailable [phone] Virgie Trivedi MERCHANDISE SUPPORT ASSOCIATE Unavailable [phone] Kirk Randle MD Primary Care Provider [phone] Alana Celaya MERCHANDISE SUPPORT ASSOCIATE Unavailable [phone] Encounter Details Date Type Department Care Team Description 10/13/2020 Supervisor Blood Report Medical Records [address] [place] [address] Svetlana Escobar MD Social History Tobacco Use Types Packs/Day [...] have Coronavirus / COVID-19? No / Unsure 09/19/2020 10:23 AM EST documented as of this encounter Plan of Treatment Not on file documented as of this encounter Visit Diagnoses Not on filedocumented in this encounter Care Teams On Site Construction Superintendent Relationship Specialty Start Date End Date Kirk Randle MD PCP - General Internal Medicine 07/12/20 06/04/21 Kirk Randle MD PCP - General Internal Medicine 06/05/21 Ced Victoria MD [address] [place] [address] [address] [place] [address] Abrasive Sawyer Cardiovascular Disease 04/05/21 Virgie Trivedi NP [address] [place] [address] [address] [place] [address] Nurse Practitioner Cardiology 04/05/21 Alana Celaya NP [address] [place] [address] [facility] [place] [address] Nurse Practitioner Cardiology 07/17/23 documented as of this encounter
--- OUTSIDE RECORDS SUMMARY | 2024-11-10 11:03 | XMS_ITS | Encounter Summary ---
Author Organization [facility] Address [address] [place] [address] Care Team Providers Care Wildfire Prevention Specialist Name Role Phone Ced Victoria MD Unavailable [phone] Virgie Trivedi NP Unavailable [phone] Kirk Randle MD Primary Care Provider [phone] Alana Celaya NP Unavailable [phone] Encounter Details Date Type Department Care Team Description 02/06/2022 Life Management Teacher Report Medical Records [address] [place] [address] Feliz Gonzalez Social History Tobacco Use Types [...] on filedocumented in this encounter Care Teams Wildfire Prevention Specialist Relationship Specialty Start Date End Date Kirk Randle MD [address] [place] [address] [address] [place] [address] PCP - General Internal Medicine 06/05/21 Ced Victoria MD [address] [place] [address] [address] [place] [address] Sewing Machinist Cardiovascular Disease 04/05/21 Virgie Trivedi NP [address] [place] [address] [address] [place], [place] [address] Nurse Practitioner Cardiology 04/05/21 Alana Celaya NP [address] [place] [address] [facility] [place] [address] Nurse Practitioner Cardiology 07/17/23 documented as of this encounter
--- OUTSIDE RECORDS SUMMARY | 2024-11-10 11:03 | XMS_ITS | Encounter Summary ---
Author Organization [facility] Address [address] [place] [address] Care Team Providers Care Door Manager Name Role Phone Kirk Randle MD Primary Care Provider [phone] Ced Victoria MD Unavailable [phone] Virgie Trivedi OPTIONS TRADER Unavailable [phone] Kirk Randle MD Primary Care Provider + [phone] Alana Celaya OPTIONS TRADER Unavailable [phone] Encounter Details Date Type Department Care Team Description 04/01/2021 Hospital Medical Records [address] [place] [id number] [place] [address] Social History Tobacco Use Types Packs/Day Years [...] on filedocumented in this encounter Care Teams Door Manager Relationship Specialty Start Date End Date Kirk Randle MD PCP - General Internal Medicine 07/12/20 06/04/21 Kirk Randle MD PCP - General Internal Medicine 06/05/21 Ced Victoria MD [address] [place] [address] [address] [place] [address] Line Up Worker Cardiovascular Disease 04/05/21 Virgie Trivedi NP [address] [place] [address] [address]IVE [address] [place] [address] Nurse Practitioner Cardiology 04/05/21 Alana Celaya NP [address] [place] [address] [facility] [place] [address] Nurse Practitioner Cardiology 07/17/23 documented as of this encounter
--- OUTSIDE RECORDS SUMMARY | 2024-11-10 11:03 | XMS_ITS | Encounter Summary ---
Author Organization [facility] Address [address] [place] [address] Care Team Providers Care Phototypesetting Equipment Monitor Name Role Phone Kirk Randle MD Primary Care Provider [phone] Ced Victoria MD Unavailable [phone] Virgie Trivedi ENGINEERING DESIGN SUPERVISOR Unavailable [phone] Kirk Randle MD Primary Care Provider + [phone] Alana Celaya ENGINEERING DESIGN SUPERVISOR Unavailable [phone] Encounter Details Date Type Department Care Team Description 04/10/2021 Hospital Medical Records [address] [place] [address] Kimberley Rios PA-C [address] [facility] [address] [place] [address] Social History Tobacco Use Types [...] on filedocumented in this encounter Care Teams Phototypesetting Equipment Monitor Relationship Specialty Start Date End Date Kirk Randle MD PCP - General Internal Medicine 07/12/20 06/04/21 Kirk Randle MD PCP - General Internal Medicine 06/05/21 Ced Victoria MD [address] [place] [address] [address] [place], [place] [address] Field Trainer Cardiovascular Disease 04/05/21 Virgie Trivedi NP [address] [place] [address] [address] [place], [place] [id number] Nurse Practitioner Cardiology 04/05/21 Alana Celaya NP [address] [place] [address] [facility] [place] [address] Nurse Practitioner Cardiology 07/17/23 documented as of this encounter
--- OUTSIDE RECORDS SUMMARY | 2024-11-10 11:03 | XMS_ITS | Encounter Summary ---
Author Organization [facility] Address [address] [place] [address] Care Team Providers Care Structural Analysis Engineer Name Role Phone Ced Victoria MD Unavailable [phone] Virgie Trivedi NP Unavailable [phone] Kirk Randle MD Primary Care Provider [phone] Alana Celaya NP Unavailable [phone] Encounter Details Date Type Department Care Team Description 01/16/2022 Equipment Washer Report Medical Records [address] [place] [address] Social History Tobacco Use Types Packs/Day Years [...] on filedocumented in this encounter Care Teams Structural Analysis Engineer Relationship Specialty Start Date End Date Kirk Randle MD [address] [place] [address] [address] [place], [place] [phone] PCP - General Internal Medicine 06/05/21 Ced Victoria MD [address] [place] [address] [address] [place] [address] Architectural Engineer Cardiovascular Disease 04/05/21 Virgie Trivedi NP [address] [place] [address] [address] [place] [address] Nurse Practitioner Cardiology 04/05/21 Alana Celaya NP [address] [place] [address] [facility] [place] [address] Nurse Practitioner Cardiology 07/17/23 documented as of this encounter
--- OUTSIDE RECORDS SUMMARY | 2024-11-10 11:03 | XMS_ITS | Encounter Summary ---
Author Organization [facility] Address [address] [place] [address] Care Team Providers Care Steel Wheel Engraver Name Role Phone Ced Victoria MD Unavailable [phone] Virgie Trivedi NP Unavailable [phone] Kirk Randle MD Primary Care Provider [phone] Alana Celaya NP Unavailable [phone] Encounter Details Date Type Department Care Team Description 08/30/2022 Orders Only Internal Medicine - [address], [address] [place] [address] Kirk Randle MD [address] [place], [place] [address] Social History Tobacco Use Types Packs/Day Years [...] on filedocumented in this encounter Care Teams Steel Wheel Engraver Relationship Specialty Start Date End Date Kirk Randle MD [address] [place] [address] [address] [place] [address] PCP - General Internal Medicine 06/05/21 Ced Victoria MD [address] [place] [address] [address] [place] [address] Player Services Representative Cardiovascular Disease 04/05/21 Virgie Trivedi NP [address] [place] [address] [address] [place] [address] Nurse Practitioner Cardiology 04/05/21 Alana Celaya NP [address] [place] [address] Dr [facility] [place] [address] Nurse Practitioner Cardiology 07/17/23 documented as of this encounter
--- OUTSIDE RECORDS SUMMARY | 2024-11-10 11:03 | XMS_ITS | Encounter Summary ---
Author Organization [facility] Address [address] [place] [address] Care Team Providers Care Kiln Operator Helper Name Role Phone Kirk Randle MD Primary Care Provider [phone] Ced Victoria MD Unavailable [phone] Virgie Trivedi SENIOR SOFTWARE TEST ENGINEER Unavailable [phone] Kirk Randle MD Primary Care Provider [phone] Alana Celaya SENIOR SOFTWARE TEST ENGINEER Unavailable [phone] Reason for Visit * Reason Onset Date Comments [facility]NA Call 03/23/2021 Encounter Details Date Type Department Care Team Description 03/23/2021 Telephone Pulmonology - [address] [place] [address] Kirk Randle MD [address] [place] [address] VNA Call Social History Tobacco [...] verbal orders given. * Telephone Encounter - aGil Finnegan - 03/23/2021 11:59 AM EDT [facility]NA CALL Which [facility] office is calling? Yane at home Full name of caller: Dipti Church 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 auto wheel alignment specialist Is the caller at the patients [...] on filedocumented in this encounter Care Teams Kiln Operator Helper Relationship Specialty Start Date End Date Kirk Randle MD PCP - General Internal Medicine 07/12/20 06/04/21 Kirk Randle MD PCP - General Internal Medicine 06/05/21 Ced Victoria MD [address] [place] [address] [address] [place] [address] [employer] Cardiovascular Disease 04/05/21 Virgie Trivedi NP [address] [place] [address] [address] [place] [address] Nurse Practitioner Cardiology 04/05/21 Alana Celaya NP [address] [place] [address] [facility] [place], [place] [address] Nurse Practitioner Cardiology 07/17/23 documented as of this encounter
--- OUTSIDE RECORDS SUMMARY | 2024-11-10 11:03 | XMS_ITS | Encounter Summary ---
Author Organization [facility] Address [address] [place] [address] Care Team Providers Care Knockout Man Name Role Phone Ced Victoria MD Unavailable [phone] Virgie Trivedi NP Unavailable [phone] Kirk Randle MD Primary Care Provider [phone] Alana Celaya NP Unavailable [phone] Reason for Visit * Reason Onset Date Comments refill request 03/01/2022 Encounter Details Date Type Department Care Team Description 03/01/2022 Refill Internal Medicine - [address], [address] [place] [address] Kirk Randle MD [address] [place] [address] refill request Social History Tobacco Use Types Packs/Day Years [...] Miscellaneous Notes * Telephone Encounter - Jaquelin ScottP.N. - 03/01/2022 12:52 PM EDT This patient is follow ed by the [place] [facility] * Telephone Encounter - Kaye Blevins - 03/01/2022 11:33 AM EDT CLIFF 02/02/22 NOV 04/04/22 Patient out of medication documented in this encounter Plan of Treatment Not on file documented as of this encounter Visit Diagnoses Not on filedocumented in this encounter Care Teams Knockout Man Relationship Specialty Start Date End Date Kirk Randle MD [address] [place] [address] [address] [place] [address] PCP - General Internal Medicine 06/05/21 Ced Victoria MD [address] [place] [address] [address] [place] [address] Martial Arts Instructor Cardiovascular Disease 04/05/21 Virgie Trivedi NP [address] [place] [address] [address] [place] [address] Nurse Practitioner Cardiology 04/05/21 Alana Celaya NP [address] [place] [address] [facility] [place] [address] Nurse Practitioner Cardiology 07/17/23 documented as of this encounter
--- OUTSIDE RECORDS SUMMARY | 2024-11-10 11:03 | XMS_ITS | Encounter Summary ---
Author Organization [facility] Address [address] [place] [address] Care Team Providers Care Maintenance Custodian Name Role Phone Ced Victoria MD Unavailable [phone] Virgie Trviedi NP Unavailable [phone] Kirk Randle MD Primary Care Provider [phone] Alana Celaya NP Unavailable [phone] Encounter Details Date Type Department Care Team Description 04/02/2022 Food Production Manager Report Medical Records [address] [place] [address] Feliz Gonzalez Social History Tobacco Use Types [...] on filedocumented in this encounter Care Teams Maintenance Custodian Relationship Specialty Start Date End Date Kirk Randle MD [address] [place] [address] [address] [place] [address] PCP - General Internal Medicine 06/05/21 Ced Victoria MD [address] [place] [address] [address] [place] [address] Rough Rice Tender Cardiovascular Disease 04/05/21 Virgie Trivedi NP [address] [place] [address] [address] [place] [address] Nurse Practitioner Cardiology 04/05/21 Alana Celaya NP [address] [place] [address] [facility] [place] [address] Nurse Practitioner Cardiology 07/17/23 documented as of this encounter
--- OUTSIDE RECORDS SUMMARY | 2024-11-10 11:03 | XMS_ITS | Encounter Summary ---
Author Organization [facility] Address [address] [place] [address] Care Team Providers Care Client Hr Manager Name Role Phone Ced Victoria MD Unavailable [phone] Virgie Trivedi NP Unavailable [phone] Kirk Randle MD Primary Care Provider [phone] Alana Celaya NP Unavailable [phone] Encounter Details Date Type Department Care Team Description 01/17/2022 Home Health Certification Medical Records [address] [place] [address] Social History Tobacco Use Types Packs/Day Years [...] on filedocumented in this encounter Care Teams Client Hr Manager Relationship Specialty Start Date End Date Kirk Randle MD [address] [place] [address] [address] [place], [place] [phone] PCP - General Internal Medicine 06/05/21 Ced Victoria MD [address] [place] [address] [address] [place] [address] Software Applications Designer Cardiovascular Disease 04/05/21 Virgie Trivedi NP [address] [place] [address] [address] [place] [address] Nurse Practitioner Cardiology 04/05/21 Alana Celaya NP [address] [place] [address] [facility] [place] [address] Nurse Practitioner Cardiology 07/17/23 documented as of this encounter
--- OUTSIDE RECORDS SUMMARY | 2024-11-10 11:03 | XMS_ITS | Encounter Summary ---
Author Organization [facility] Address [address] [place] [address] Care Team Providers Care Executive Secretary Social Welfare Name Role Phone Ced Victoria MD Unavailable [phone] Virgie Trivedi NP Unavailable [phone] Kirk Randle MD Primary Care Provider [phone] Alana Celaya NP Unavailable [phone] Reason for Visit * Reason Onset Date Comments REFERRAL 03/19/2022 Encounter Details Date Type Department Care Team Description 03/19/2022 Telephone Internal Medicine - [address], [address] [place], [place] [address] Kirk Randle MD [address] [place], [place] [phone] REFERRAL Social History Tobacco Use Types Packs/Day [...] encounter Miscellaneous Notes * Telephone Encounter - Chinyere Valverde M.A. - 03/22/2022 11:[address] Randle * Telephone Encounter - Yesenia Ant - 03/19/2022 10:33 AM EDT Pt is request and updated referral to be put in system for Vascular Surgery follow for Dx PAD. documented in this encounter Plan of Treatment Not on file documented as of this encounter Visit Diagnoses Not on filedocumented in this encounter Care Teams Executive Secretary Social Welfare Relationship Specialty Start Date End Date Kirk Randle MD [address] [place] [address] [address] [place] [address] PCP - General Internal Medicine 06/05/21 Ced Victoria MD [address] [place] [address] [address] [place] [address] Manager Pet Cardiovascular Disease 04/05/21 Virgie Trivedi NP [address] [place] [address] [address] [place] [address] Nurse Practitioner Cardiology 04/05/21 Alana Celaya NP [address] [place] [address] [facility] [place] [place] [address] Nurse Practitioner Cardiology 07/17/23 documented as of this encounter
--- OUTSIDE RECORDS SUMMARY | 2024-11-10 11:03 | XMS_ITS | Encounter Summary ---
Author Organization [facility] Address [address] [place] [address] Care Team Providers Care Certified Scrum Master Name Role Phone Kirk Randle MD Primary Care Provider [phone] Ced Victoria MD Unavailable [phone] Virgie Trivedi ENTRY LEVEL MARKETING REPRESENTATIVE Unavailable [phone] Kirk Randle MD Primary Care Provider [phone] Alana Celaya NP Unavailable [phone] Encounter Details Date Type Department Care Team Description 03/20/2021 Saw Repairer Report Medical Records [address] [place] [address] Agustin Gore Social History Tobacco Use Types [...] on filedocumented in this encounter Care Teams Certified Scrum Master Relationship Specialty Start Date End Date Kirk Randle MD PCP - General Internal Medicine 07/12/20 06/04/21 Kirk Randle MD PCP - General Internal Medicine 06/05/21 Ced Victoria MD [address] [place] [address] [address] [place] [address] Senior Risk Analyst Cardiovascular Disease 04/05/21 Virgie Trivedi NP [address] [place] [address] [address] [place], [place] [address] Nurse Practitioner Cardiology 04/05/21 Alana Celaya NP [address] [place] [address] [facility] [place] [address] Nurse Practitioner Cardiology 07/17/23 documented as of this encounter
--- OUTSIDE RECORDS SUMMARY | 2024-11-10 11:03 | XMS_ITS | Encounter Summary ---
Author Organization [facility] Address [address] [place] [address] Care Team Providers Care Webbing Weaver Name Role Phone Kirk Randle MD Primary Care Provider [phone] Ced Victoria MD Unavailable [phone] Virgie Trivedi REAMING MACHINE OPERATOR FOR PLASTIC Unavailable [phone] Kirk Randle MD Primary Care Provider [phone] Alana Celaya REAMING MACHINE OPERATOR FOR PLASTIC Unavailable [phone] Reason for Visit * Reason Onset Date Comments REFERRAL 11/18/2020 Encounter Details Date Type Department Care Team Description 11/18/2020 Telephone Internal Medicine - [address], [address] [place] [address] Kirk Randle MD [address] [place] [address] REFERRAL Social History Tobacco Use Types Packs/Day [...] RANDLE Submitter Type: Provider : 1940 Referral (#[id number]) Specialty Care Review Type: Initial Certification Status : Certified in total Service Type : Medical Care Place Of Service : Office Visits : 6 Service Date : 11/22/2020-11/22/2021 Service Providers Provider Name ID Provider Type DUTCH CAZARES NPI : [id number] Service Provider * Telephone Encounter - Gail Finnegan - 11/18/2020 1:42 PM EST What insurance does the patient have today? [facility] Effective 06/09/09: BS will not retro referral [...] insurance must be obtained and registered in [facility] or their referral can not be processed. [...] is seeing: Dr Marin Cazares NPI # [id number] What specialty is this? Orthopedics DIAGNOSIS Patient [...] Is this visit:Follow Up Address of Specialist: [address] [place] [address] [address] [place] [address] Phone # of Specialist:[phone] Fax #: (if applicable):[phone] Does patient have an appointment scheduled?: YES Date of appointment- (including a retro-request): 11/22/20- for 6 visits Is this appointment related to: Not MVA, WC or Surgery related documented in this encounter Plan of Treatment Not on file documented as of this encounter Visit Diagnoses Not on filedocumented in this encounter Care Teams Webbing Weaver Relationship Specialty Start Date End Date Kirk Randle MD PCP - General Internal Medicine 07/12/20 06/04/21 Kirk Randle MD PCP - General Internal Medicine 06/05/21 Ced Victoria MD [address] [place] [address] [address] [place] [address] Income Tax Expert Cardiovascular Disease 04/05/21 Virgie Trivedi NP [address] [place] [address] [address] [place] [address] Nurse Practitioner Cardiology 04/05/21 Alana Celaya NP [address] [place] [address] [facility] [place] [address] Nurse Practitioner Cardiology 07/17/23 documented as of this encounter
--- OUTSIDE RECORDS SUMMARY | 2024-11-10 11:04 | XMS_ITS | Encounter Summary ---
Author Organization [facility] Address [address] [place] [address] Care Team Providers Care Ocularist Name Role Phone Ced Victoria MD Unavailable [phone] Virgie Trivedi NP Unavailable [phone] Kirk Randle MD Primary Care Provider [phone] Alana Celaya NP Unavailable [phone] Reason for Visit * Reason Onset Date Comments REFERRAL 07/23/2022 Encounter Details Date Type Department Care Team Description 07/23/2022 Telephone Internal Medicine - [address], [address] [place] [address] Kirk Randle MD [address] [place], [place] [phone] REFERRAL Social History Tobacco Use Types Packs/Day [...] What insurance does the patient have today? [facility] Effective 06/09/09: BCBS will not retro referral [...] insurance must be obtained and registered in [facility] or their referral can not be processed. [...] YES Is this visit:Initial Visit Address of Specialist:[address] [place] [address] [address] [place] [address] Phone # of Specialist:[phone] Fax #: (if applicable):[phone] Does patient have an appointment scheduled?: YES Date of appointment- (including a retro-request): 07/25/2022 Is this appointment related to: Not MVA, WC or Surgery related documented in this encounter Plan of Treatment Not on file documented as of this encounter Visit Diagnoses Not on filedocumented in this encounter Care Teams Ocularist Relationship Specialty Start Date End Date Kirk Randle MD [address] [place] [address] [address] [place] [address] PCP - General Internal Medicine 06/05/21 Ced Victoria MD [address] [place] [address] [address] [place] [address] Executive Vice President Cardiovascular Disease 04/05/21 Virgie Trivedi NP [address] [place] [address] [address] [place] [address] Nurse Practitioner Cardiology 04/05/21 Alana Celaya NP [address] [place] [address] [facility] [place] [address] Nurse Practitioner Cardiology 07/17/23 documented as of this encounter
--- OUTSIDE RECORDS SUMMARY | 2024-11-10 11:04 | XMS_ITS | Encounter Summary ---
Author Organization [facility] Address [address] [place] [address] Care Team Providers Care Lettuce Trimmer Name Role Phone Kirk Randle MD Primary Care Provider [phone] Ced Victoria MD Unavailable [phone] Virgie Trivedi TECHNICAL AIDE Unavailable [phone] Kirk Randle MD Primary Care Provider + [phone] Alana Celaya TECHNICAL AIDE Unavailable [phone] Encounter Details Date Type Department Care Team Description 06/01/2021 Refill Internal Medicine - [address], [address] [place], [place] [address] Kirk Randle MD [address] [place], [place] [id number] Social History Tobacco Use Types Packs/Day Years [...] on filedocumented in this encounter Care Teams Lettuce Trimmer Relationship Specialty Start Date End Date Kirk Randle MD PCP - General Internal Medicine 07/12/20 06/04/21 Kirk Randle MD PCP - General Internal Medicine 06/05/21 Ced Victoria MD [address] [place] [address] [address] [place] [address] Textile Artist Cardiovascular Disease 04/05/21 Virgie Trivedi NP [address] [place] [address] [address] [place] [address] Nurse Practitioner Cardiology 04/05/21 Alana Celaya NP [address] [place] [address] [facility] [place] [address] Nurse Practitioner Cardiology 07/17/23 documented as of this encounter
--- OUTSIDE RECORDS SUMMARY | 2024-11-10 11:04 | XMS_ITS | Encounter Summary ---
Author Organization [facility] Address [address] [place] [address] Care Team Providers Care Senior Administrative Services Officer Name Role Phone Kirk Randle MD Primary Care Provider [phone] Ced Victoria MD Unavailable [phone] Virgie Trivedi AIR INTELLIGENCE SPECIALIST Unavailable [phone] Kirk Randle MD Primary Care Provider + [phone] Alana Celaya AIR INTELLIGENCE SPECIALIST Unavailable [phone] Encounter Details Date Type Department Care Team Description 05/29/2021 Fabrics And Material Cutter Report Medical Records [address] [place] [address] [facility] Social History Tobacco Use Types Packs/Day [...] in this encounter Care Teams Senior Administrative Services Officer Relationship Specialty Start Date End Date Kirk Randle MD PCP - General Internal Medicine 07/12/20 06/04/21 Kirk Randle MD PCP - General Internal Medicine 06/05/21 Ced Victoria MD [address] [place] [address] [address] [place], [place] [phone] Casting Trucker Cardiovascular Disease 04/05/21 Virgie Trivedi NP [address] [place] [address] [address] [place], [place] [phone] Nurse Practitioner Cardiology 04/05/21 Alana Celaya NP [address] [place] [address] [facility] [place] [address] Nurse Practitioner Cardiology 07/17/23 documented as of this encounter
--- OUTSIDE RECORDS SUMMARY | 2024-11-10 11:04 | XMS_ITS | Encounter Summary ---
Author Organization [facility] Address [address] [place] [address] Care Team Providers Care Predatory Game Hunter Name Role Phone Ced Victoria MD Unavailable [phone] Virgie Trivedi NP Unavailable [phone] Kirk aRndle MD Primary Care Provider [phone] Alana Celaya NP Unavailable [phone] Encounter Details Date Type Department Care Team Description 08/16/2022 Hospital Medical Records [address] [place] [address] Raffy Gardner MD [address] [address] Social History Tobacco Use Types [...] on filedocumented in this encounter Care Teams Predatory Game Hunter Relationship Specialty Start Date End Date Kirk Randle MD [address] [place] [address] [address] [place] [address] PCP - General Internal Medicine 06/05/21 Ced Victoria MD [address] [place] [address] [address] [place] [address] Chocolate Maker Cardiovascular Disease 04/05/21 Virgie Trivedi NP [address] [place] [address] [address] [place] [address] Nurse Practitioner Cardiology 04/05/21 Alana Celaya NP [address] [place] [address] [facility] [place] [address] Nurse Practitioner Cardiology 07/17/23 documented as of this encounter
--- OUTSIDE RECORDS SUMMARY | 2024-11-10 11:04 | XMS_ITS | Encounter Summary ---
Author Organization [facility] Address [address] [place] [address] Care Team Providers Care Integration Software Engineer Name Role Phone Ced Victoria MD Unavailable [phone] Virgie Trivedi NP Unavailable [phone] Kirk Randle MD Primary Care Provider [phone] Alana Celaya NP Unavailable [phone] Encounter Details Date Type Department Care Team Description 08/06/2022 Associate Sales Representative Report Medical Records [address] [place] [id number] [place] [address] Social History Tobacco Use Types Packs/Day Years [...] on filedocumented in this encounter Care Teams Integration Software Engineer Relationship Specialty Start Date End Date Kirk Randle MD [address] [place] [address] [address] [place] [address] PCP - General Internal Medicine 06/05/21 Ced Victoria MD [address] [place] [address] [address] [place] [address] Wheel Borer Cardiovascular Disease 04/05/21 Virgie Trivedi NP [address] [place] [address] [address] [place] [address] Nurse Practitioner Cardiology 04/05/21 Alana Celaya NP [address] [place] [address] [facility] [place] [address] Nurse Practitioner Cardiology 07/17/23 documented as of this encounter
--- OUTSIDE RECORDS SUMMARY | 2024-11-10 11:04 | XMS_ITS | Encounter Summary ---
Author Organization [facility] Address [address] [place] [address] Care Team Providers Care Security Police Name Role Phone Ced Victoria MD Unavailable [phone] Virgie Trivedi NP Unavailable [phone] Kirk Randle MD Primary Care Provider [phone] Alana Celaya NP Unavailable [phone] Encounter Details Date Type Department Care Team Description 07/30/2022 Sonogram Technician Report Medical Records [address] [place] [id number] [place] [address] Social History Tobacco Use Types Packs/Day Years [...] on filedocumented in this encounter Care Teams Security Police Relationship Specialty Start Date End Date Kirk Randle MD [address] [place] [address] [address] [place] [address] PCP - General Internal Medicine 06/05/21 Ced Victoria MD [address] [place] [address] [address] [place] [address] Composition Floor Setter Cardiovascular Disease 04/05/21 Virgie Trivedi NP [address] [place] [address] [address] [place] [address] Nurse Practitioner Cardiology 04/05/21 Alana Celaya NP [address] [place] [address] [facility] [place] [address] Nurse Practitioner Cardiology 07/17/23 documented as of this encounter
--- OUTSIDE RECORDS SUMMARY | 2024-11-10 11:04 | XMS_ITS | Encounter Summary ---
Author Organization [facility] Address [address] [place] [address] Care Team Providers Care Registration Manager Name Role Phone Kirk Randle MD Primary Care Provider [phone] Ced Victoria MD Unavailable [phone] Virgie Trivedi ADJUSTMENT CLERK Unavailable [phone] Kirk Randle MD Primary Care Provider + [phone] Alana Celaya ADJUSTMENT CLERK Unavailable [phone] Encounter Details Date Type Department Care Team Description 05/25/2021 Orders Only Internal Medicine - [address], [address] [place], [place] [id number] Kirk Randle MD [address] [place], [place] [id number] Social History Tobacco Use Types Packs/Day Years [...] on filedocumented in this encounter Care Teams Registration Manager Relationship Specialty Start Date End Date Kirk Randle MD PCP - General Internal Medicine 07/12/20 06/04/21 Kirk Randle MD PCP - General Internal Medicine 06/05/21 Ced Victoria MD [address] [place] [address] [address] [place] [address] Parboiler Cardiovascular Disease 04/05/21 Virgie Trivedi NP [address] [place] [address] [address] [place], [place] [address] Nurse Practitioner Cardiology 04/05/21 Alana Celaya NP [address] [place] [address] [facility] [place], [place] [address] Nurse Practitioner Cardiology 07/17/23 documented as of this encounter
--- OUTSIDE RECORDS SUMMARY | 2024-11-10 11:04 | XMS_ITS | Encounter Summary ---
Author Organization [facility] Address [address] [place] [address] Care Team Providers Care Stock And Station Agent Name Role Phone Ced Victoria MD Unavailable [phone] Virgie Trivedi NP Unavailable [phone] Kirk Randle MD Primary Care Provider [phone] Alana Celaya NP Unavailable [phone] Encounter Details Date Type Department Care Team Description 09/14/2022 Home Health Certification Medical Records [address] [place] [address] Social History Tobacco Use Types Packs/Day Years [...] on filedocumented in this encounter Care Teams Stock And Station Agent Relationship Specialty Start Date End Date Kirk Randle MD [address] [place] [address] [address] [place] [address] PCP - General Internal Medicine 06/05/21 Ced Victoria MD [address] [place] [address] [address] [place] [address] Telecom Engineer Cardiovascular Disease 04/05/21 Virgie Trivedi NP [address] [place] [address] [address] [place] [address] Nurse Practitioner Cardiology 04/05/21 Alana Celaya NP [address] [place] [address] [facility] [place] [address] Nurse Practitioner Cardiology 07/17/23 documented as of this encounter
--- OUTSIDE RECORDS SUMMARY | 2024-11-10 11:04 | XMS_ITS | Encounter Summary ---
Author Organization [facility] Address [address] [place] [address] Care Team Providers Care Shipping And Receiving Supervisor Name Role Phone Ced Victoria MD Unavailable [phone] Virgie Trivedi NP Unavailable [phone] Kirk Randle MD Primary Care Provider [phone] Alana Celaya NP Unavailable [phone] Reason for Visit * Reason Onset Date Comments Faxed Refill 08/28/2022 Encounter Details Date Type Department Care Team Description 08/28/2022 Refill Internal Medicine - [address], [address] [place] [address] Kirk Randle MD [address] [place] [address] Faxed Refill Social History Tobacco Use Types [...] like script to be: E-PRESCRIBED/FAXED TO PHARMACY ([facility] [address] [place] [id number]) When was the patients last office visit in Adult Medicine?: 08/01/22 When was the last time the patient saw their PCP? Same as above Does patient have an upcoming appointment? No (THE MEDICATION IS NOT ON THE MED LIST AND IS IDENTIFIED BELOW): {MED LIST:93887) Med name: KELLEYTOVEN tablet Dosage: 5 MG # of tablets: N/a Local pharmacy with request for 90 -day supply Instructions: Take one tablet by mouth per administration instructions. Did you check the pharmacy information above?: YES Patients current insurance carrier: Payor: [facility] / Plan: [employer] PREF HMO [facility] / Product Type: MEDICARE RISK Insurance ID #: No Subscriber Number on File documented in this encounter Plan of Treatment Not on file documented as of this encounter Visit Diagnoses Not on filedocumented in this encounter Care Teams Shipping And Receiving Supervisor Relationship Specialty Start Date End Date Kirk Randle MD [address] [place] [address] [place] [id number] PCP - General Internal Medicine 06/05/21 Ced Victoria MD [address] [place] [address] [address] [place] [address] Lithograph Press Feeder Cardiovascular Disease 04/05/21 Virgie Trivedi NP [address] [place] [address] [address] [place] [address] Nurse Practitioner Cardiology 04/05/21 Alana Celaya NP [address] [place] [address] [facility] [place] [address] Nurse Practitioner Cardiology 07/17/23 documented as of this encounter
--- OUTSIDE RECORDS SUMMARY | 2024-11-10 11:04 | XMS_ITS | Encounter Summary ---
Author Organization [facility] Address [address] [place] [address] Care Team Providers Care Cardboard Inserter Name Role Phone Ced Victoria MD Unavailable [phone] Virgie Trivedi NP Unavailable [phone] Kirk Randle MD Primary Care Provider [phone] Alana Celaya NP Unavailable [phone] Encounter Details Date Type Department Care Team Description 08/13/2022 Heading And Priming Operator Report Medical Records [address] [place] [id number] [place] [address] Social History Tobacco Use Types Packs/Day Years [...] on filedocumented in this encounter Care Teams Cardboard Inserter Relationship Specialty Start Date End Date Kirk Randle MD [address] [place] [address] [address] [place] [address] PCP - General Internal Medicine 06/05/21 Ced Victoria MD [address] [place] [address] [address] [place] [address] Auto Damage Estimator Cardiovascular Disease 04/05/21 Virgie Trivedi NP [address] [place] [address] [address] [place] [address] Nurse Practitioner Cardiology 04/05/21 Alana Celaya NP [address] [place] [address] [facility] [place] [address] Nurse Practitioner Cardiology 07/17/23 documented as of this encounter
--- OUTSIDE RECORDS SUMMARY | 2024-11-10 11:04 | XMS_ITS | Encounter Summary ---
Author Organization [facility] Address [address] [place] [address] Care Team Providers Care Soldering Machine Operator Name Role Phone Ced Victoria MD Unavailable [phone] Virgie Trivedi NP Unavailable [phone] Kirk Randle MD Primary Care Provider [phone] Alana Celaya NP Unavailable [phone] Encounter Details Date Type Department Care Team Description 07/09/2022 Car Salesperson Report Medical Records [address] [place] [id number] [place] [address] Social History Tobacco Use Types Packs/Day Years [...] on filedocumented in this encounter Care Teams Soldering Machine Operator Relationship Specialty Start Date End Date Kirk Randle MD [address] [place] [address] [address] [place] [address] PCP - General Internal Medicine 06/05/21 Ced Victoria MD [address] [place] [address] [address] [place] [address] Magistrate Cardiovascular Disease 04/05/21 Virgie Trivedi NP [address] [place] [address] [address] [place] [address] Nurse Practitioner Cardiology 04/05/21 Alana Celaya NP [address] [place] [address] [facility] [place] [address] Nurse Practitioner Cardiology 07/17/23 documented as of this encounter
--- OUTSIDE RECORDS SUMMARY | 2024-11-10 11:04 | XMS_ITS | Encounter Summary ---
Author Organization [facility] Address [address] [place] [address] Care Team Providers Care Flower Buncher Or Picker Name Role Phone Kirk Randle MD Primary Care Provider [phone] Ced Victoria MD Unavailable [phone] Virgie Trivedi CERTIFIED PUBLIC ACCOUNTANT Unavailable [phone] Kirk Randle MD Primary Care Provider [phone] Alana Celaya CERTIFIED PUBLIC ACCOUNTANT Unavailable [phone] Encounter Details Date Type Department Care Team Description 05/04/2021 SCAN Medical Records [address] [place] [address] [facility] Social History Tobacco Use Types Packs/Day [...] on filedocumented in this encounter Care Teams Flower Buncher Or Picker Relationship Specialty Start Date End Date Kirk Randle MD PCP - General Internal Medicine 07/12/20 06/04/21 Kirk Randle MD PCP - General Internal Medicine 06/05/21 Ced Victoria MD [address] [place] [address] [address] [place] [address] Publications Editor Cardiovascular Disease 04/05/21 Virgie Trivedi NP [address] [place] [address] [address] [place], [place] [address] Nurse Practitioner Cardiology 04/05/21 Alana Celaya NP [address] [place] [address] [facility] [place], [place] [address] Nurse Practitioner Cardiology 07/17/23 documented as of this encounter
--- OUTSIDE RECORDS SUMMARY | 2024-11-10 11:04 | XMS_ITS | Encounter Summary ---
Author Organization [facility] Address [address] [place] [address] Care Team Providers Care Aircraft Designer Name Role Phone Ced Victoria MD Unavailable [phone] Virgie Trivedi NP Unavailable [phone] Kirk Randle MD Primary Care Provider [phone] Alana Celaya NP Unavailable [phone] Encounter Details Date Type Department Care Team Description 12/16/2023 Orders Only Medical Records [address] [place] [address] [place] Social History Tobacco Use Types [...] Associated Diagnosis Comments CHG PROTHROMBIN TIME Routine 12/09/2023 documented in this encounter Results * CHG PROTHROMBIN TIME (12/09/2023) [place] documented in this encounter Visit Diagnoses Not on filedocumented in this encounter Care Teams Aircraft Designer Relationship Specialty Start Date End Date Kirk Randle MD [address] [place] [address] [address] [place] [address] PCP - General Internal Medicine 06/05/21 Ced Victoria MD [address] [place] [address] [address] [place] [address] Hospital Director Cardiovascular Disease 04/05/21 Virgie Trivedi NP [address] [place] [address] [address] [place] [address] Nurse Practitioner Cardiology 04/05/21 Alana Celaya NP [address] [place] [address] [facility] [place] [address] Nurse Practitioner Cardiology 07/17/23 documented as of this encounter
--- OUTSIDE RECORDS SUMMARY | 2024-11-10 11:04 | XMS_ITS | Encounter Summary ---
Author Organization [facility] Address [address] [place] [address] Care Team Providers Care Kiln Tender Name Role Phone Kirk Randle MD Primary Care Provider [phone] Ced Victoria MD Unavailable [phone] Virgie Trivedi NP Unavailable [phone] Kirk Randle MD Primary Care Provider [phone] Alana Celaya NP Unavailable [phone] Encounter Details Date Type Department Care Team Description 06/02/2021 SCAN Medical Records [address] [place] [address] Ced Victoria MD [address] [place] [address] [address] [place] [address] Social History Tobacco Use Types Packs/Day Years [...] Name Priority Date/Time Associated Diagnosis Comments OUTSIDE ECHO Routine 06/02/2021 documented in this encounter Results * OUTSIDE ECHO (06/02/2021) Provider Abstract CARDIOLOGY documented in this encounter Visit Diagnoses Not on filedocumented in this encounter Care Teams Kiln Tender Relationship Specialty Start Date End Date Kirk Randle MD PCP - General Internal Medicine 07/12/20 06/04/21 Kirk Randle MD PCP - General Internal Medicine 06/05/21 Ced Victoria MD [address] [place] [address] [address] [place] [address] Quail Farmer Cardiovascular Disease 04/05/21 Virgie Trivedi NP [address] [place] [address] [address] [place] [address] Nurse Practitioner Cardiology 04/05/21 Alana Celaya NP [address] [place] [address] [facility] [place] [address] Nurse Practitioner Cardiology 07/17/23 documented as of this encounter
--- OUTSIDE RECORDS SUMMARY | 2024-11-10 11:04 | XMS_ITS | Encounter Summary ---
Author Organization [facility] Address [address] [place] [address] Care Team Providers Care Social Service Coordinator Name Role Phone Ced Victoria MD Unavailable [phone] Virgie Trivedi NP Unavailable [phone] Kirk Randle MD Primary Care Provider [phone] Alana Celaya NP Unavailable [phone] Encounter Details Date Type Department Care Team Description 06/05/2021 Web Ui Developer Report Medical Records [address] [place] [address] Abstract, Provider Social History Tobacco Use Types [...] on filedocumented in this encounter Care Teams Social Service Coordinator Relationship Specialty Start Date End Date Kirk Randle MD [address] [place] [address] [address] [place] [address] PCP - General Internal Medicine 06/05/21 Ced Victoria MD [address] [place] [address] [address] [place] [address] Steam Conditioning Operator Cardiovascular Disease 04/05/21 Virgie Trivedi NP [address] [place] [address] [address] [place] [address] Nurse Practitioner Cardiology 04/05/21 Alana Celaya NP [address] [place] [address] [facility] [place] [address] Nurse Practitioner Cardiology 07/17/23 documented as of this encounter
--- OUTSIDE RECORDS SUMMARY | 2024-11-10 11:04 | XMS_ITS | Encounter Summary ---
Author Organization [facility] Address [address] [place] [address] Care Team Providers Care Residential Remodeling Subcontractor Name Role Phone Ced Victoria MD Unavailable [phone] Virgie Trivedi NP Unavailable [phone] Kirk Randle MD Primary Care Provider [phone] Alana Celaya NP Unavailable [phone] Reason for Visit * Reason Onset Date Comments [facility]NA Call 06/05/2021 Encounter Details Date Type Department Care Team Description 06/05/2021 Telephone Internal Medicine - [address], [address] [place], [place] [phone] Kirk Randle MD [address] [place], [place] [phone] VNA Call Social History Tobacco Use Types [...] of caller: candi 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 social media content manager Is the caller at the patients home?: NO Reason for call: needs verbal ok for 1 social work visit Does caller need an urgent call back? NO Was CONTACT Telephone # obtained above?: YES Fax #: documented in this encounter Plan of Treatment Not on file documented as of this encounter Visit Diagnoses Not on filedocumented in this encounter Care Teams Residential Remodeling Subcontractor Relationship Specialty Start Date End Date Kirk Randle MD [address] [place] [address] [place] [address] PCP - General Internal Medicine 06/05/21 Ced Victoria MD [address] [place] [address] [place] [address] Inspector Timers Cardiovascular Disease 04/05/21 Virgie Trivedi NP [address] [place] [address] [place] [address] Nurse Practitioner Cardiology 04/05/21 Alana Celaya NP [address] [place] [address] [facility] [place] [address] Nurse Practitioner Cardiology 07/17/23 documented as of this encounter
--- OUTSIDE RECORDS SUMMARY | 2024-11-10 11:04 | XMS_ITS | Encounter Summary ---
Author Organization [facility] Address [address] [place] [address] Care Team Providers Care Agent Based Modeler Name Role Phone Ced Victoria MD Unavailable [phone] Virgie Trivedi NP Unavailable [phone] Kirk Randle MD Primary Care Provider [phone] Alana Celaya NP Unavailable [phone] Encounter Details Date Type Department Care Team Description 06/04/2022 [facility] Internal Medicine - [address], [address] [place] [address] Ced Townsend Social History Tobacco Use Types [...] on filedocumented in this encounter Care Teams Agent Based Modeler Relationship Specialty Start Date End Date Kirk Randle MD [address] [place] [address] [address] [place] [address] PCP - General Internal Medicine 06/05/21 Ced Victoria MD [address] [place] [address] [address] [place] [address] Cell Support Operator Cardiovascular Disease 04/05/21 Virgie Trivedi NP [address] [place] [address] [address] [place] [address] Nurse Practitioner Cardiology 04/05/21 Alana Celaya NP [address] [place] [address] [facility] [place] [address] Nurse Practitioner Cardiology 07/17/23 documented as of this encounter
--- OUTSIDE RECORDS SUMMARY | 2024-11-10 11:04 | XMS_ITS | Encounter Summary ---
Author Organization [facility] Address [address] [place] [address] Care Team Providers Care Computer Forensics Technician Name Role Phone Kirk Randle MD Primary Care Provider [phone] Ced Victoria MD Unavailable [phone] Virgie Trivedi CASH ACCOUNTING CLERK Unavailable [phone] Kirk Randle MD Primary Care Provider [phone] Alana Celaya CASH ACCOUNTING CLERK Unavailable [phone] Encounter Details Date Type Department Care Team Description 04/29/2021 SCAN Medical Records [address] [place] [address] Abstract, Provider Social History Tobacco Use Types [...] filedocumented in this encounter Care Teams Computer Forensics Technician Relationship Specialty Start Date End Date Kirk Randle MD PCP - General Internal Medicine 07/12/20 06/04/21 Kirk Randle MD PCP - General Internal Medicine 06/05/21 Ced Victoria MD [address] [place] [address] [address] [place] [address] Technical Training Specialist Cardiovascular Disease 04/05/21 Virgie Trivedi NP [address] [place] [address] [address] [place] [address] Nurse Practitioner Cardiology 04/05/21 Alana Celaya NP [address] [place] [address] [facility] [place] [address] Nurse Practitioner Cardiology 07/17/23 documented as of this encounter
--- OUTSIDE RECORDS SUMMARY | 2024-11-10 11:04 | XMS_ITS | Encounter Summary ---
Author Organization [facility] Address [address] [place] [address] Care Team Providers Care Boiler Cleaner Name Role Phone Ced Victoria MD Unavailable [phone] Virgie Trivedi NP Unavailable [phone] Kirk Randle MD Primary Care Provider [phone] Alana Celaya NP Unavailable [phone] Reason for Visit * Reason Onset Date Comments other 10/01/2022 New found edema Encounter Details Date Type Department Care Team Description 10/01/2022 Telephone Cardio P[facility] [address] [place] [address] [address] [place] [address] Ced Victoria MD [address] [facility] [address] [place], [place] [phone] other (New found edema ) Social History [...] - 10/01/2022 9:44 AM EST Evelyn from [facility] [phone] is callig stating patient has new edema on right foot, pleasecall. documented in this encounter Plan of Treatment Not on file documented as of this encounter Visit Diagnoses Not on filedocumented in this encounter Care Teams Boiler Cleaner Relationship Specialty Start Date End Date Kirk Randle MD [address] [place] [address] [address] [place], [place] [phone] PCP - General Internal Medicine 06/05/21 Ced Victoria MD [address] [place] [address] [address] [place] [address] Pickling Tank Operator Cardiovascular Disease 04/05/21 Virgie Trivedi, GILBERTO [address] [facility] [address] [place] [address] Nurse Practitioner Cardiology 04/05/21 Alana Celaya, GILBERTO [address] [place] [address] [facility] [place] [address] Nurse Practitioner Cardiology 07/17/23 documented as of this encounter
--- OUTSIDE RECORDS SUMMARY | 2024-11-10 11:05 | XMS_ITS | Encounter Summary ---
Author Organization [facility] Address [address] [place] [address] Care Team Providers Care Perioperative Educator Name Role Phone Ced Victoria MD Unavailable [phone] Virgie Trivedi NP Unavailable [phone] Kirk Randle MD Primary Care Provider [phone] Alana Celaya NP Unavailable [phone] Encounter Details Date Type Department Care Team Description 11/08/2023 Orders Only Medical Records [address] [place] [address] Raffy Gardner MD [address] [id number] Social History Tobacco Use Types [...] Date/Time Associated Diagnosis Comments OUTSIDE LAB Routine 08/14/2022 OUTSIDE LAB Routine 08/11/2022 documented in this encounter Results * OUTSIDE LAB (08/14/2022) Raffy Gardner MD FACS LAB * OUTSIDE LAB (08/11/2022) Raffy Gardner MD FACS LAB documented in this encounter Visit Diagnoses Not on filedocumented in this encounter Care Teams Perioperative Educator Relationship Specialty Start Date End Date Kirk Randle MD [address] [place] [address] [address] [place] [address] PCP - General Internal Medicine 06/05/21 Ced Victoria MD [address] [place] [address] [address] [place] [address] Trauma Manager Cardiovascular Disease 04/05/21 Virgie Trivedi NP [address] [place] [address] [address] [place] [address] Nurse Practitioner Cardiology 04/05/21 Alana Celaya NP [address] [place] [address] [facility] [place] [place] [address] Nurse Practitioner Cardiology 07/17/23 documented as of this encounter
--- OUTSIDE RECORDS SUMMARY | 2024-11-10 11:05 | XMS_ITS | Encounter Summary ---
Author Organization [facility] Address [address] [place] [address] Care Team Providers Care Casing In Line Setter Name Role Phone Ced Victoria MD Unavailable [phone] Virgie Trivedi NP Unavailable [phone] Kirk Randle MD Primary Care Provider [phone] Alana Celaya NP Unavailable [phone] Reason for Visit * Reason Onset Date Comments VNA Call 11/08/2023 Encounter Details Date Type Department Care Team Description 11/08/2023 Telephone Internal Medicine - [address], [address] [place], [place] [id number] Kirk Randle MD [address] [place] [address] VNA Call Social History Tobacco Use Types [...] encounter Miscellaneous Notes * Telephone Encounter - Strattner L.P.N. - 11/08/2023 12:17 PM EST Perfect thank you so much * Telephone Encounter - Madelyn Alarcon - 11/08/2023 12:01 PM EST I called and spoke with Vladimir about his [facility] appt, we rescheduled it to 01/10/24 @ 10:30am. Patient said he didn't get any notification, in spite of our many attempts by phone and mail. He was on his way home from getting antibiotics to treat infection of left foot. He was not available to drive to his appt today. We agreed to notify him with sooner opening. Thank you! * Telephone Encounter - Diane Langford L.P.N. - 11/08/2023 10:22 AM EST Spoke with pt he states he has an infection on his left foot Area is swollen and red and warm to touch Covers half his foot Apt booked I did make pt aware that he may be sent to the er to be evaluated Pt states he did not know about the apt in vascular for today at 2 pm He states he did not get a letter or a call about it Please fu with pt thank You * Telephone Encounter - Shasha June - 11/08/2023 10:14 AM EST GUSTAVO maurice - called needs irma appt for patient left foot cellulitis documented in this encounter Plan of Treatment Not on file documented as of this encounter Visit Diagnoses Not on filedocumented in this encounter Care Teams Casing In Line Setter Relationship Specialty Start Date End Date Kirk Randle MD [address] [place] [address] [address] [place] [address] PCP - General Internal Medicine 06/05/21 Ced Victoria MD [address] [place] [address] [address] [place] [address] Actuarial Intern Cardiovascular Disease 04/05/21 Virgie Trivedi NP [address] [place] [address] [address] [place] [address] Nurse Practitioner Cardiology 04/05/21 Alana Celaya NP [address] [place] [address] [facility] [place] [address] Nurse Practitioner Cardiology 07/17/23 documented as of this encounter
--- OUTSIDE RECORDS SUMMARY | 2024-11-10 11:05 | XMS_ITS | Encounter Summary ---
Author Organization [facility] Address [address] [place] [address] Care Team Providers Care Drain Layer Name Role Phone Ced Victoria MD Unavailable [phone] Virgie Trivedi NP Unavailable [phone] Kirk Randle MD Primary Care Provider [phone] Alana Celaya NP Unavailable [phone] Encounter Details Date Type Department Care Team Description 11/27/2023 Orders Only Medical Records [address] [place] [address] [place] Social History Tobacco Use Types [...] Date/Time Associated Diagnosis Comments OUTSIDE LAB Routine 11/18/2023 documented in this encounter Results * OUTSIDE LAB (11/18/2023) [place] documented in this encounter Visit Diagnoses Not on filedocumented in this encounter Care Teams Drain Layer Relationship Specialty Start Date End Date Kirk Randle MD [address] [place] [address] [address] [place] [address] PCP - General Internal Medicine 06/05/21 Ced Victoria MD [address] [place] [address] [address] [place] [address] Html Developer Cardiovascular Disease 04/05/21 Virgie Trivedi NP [address] [place] [address] [address] [place] [address] Nurse Practitioner Cardiology 04/05/21 Alana Celaya NP [address] [place] [address] [facility] [place] [address] Nurse Practitioner Cardiology 07/17/23 documented as of this encounter
--- OUTSIDE RECORDS SUMMARY | 2024-11-10 11:05 | XMS_ITS | Encounter Summary ---
Author Organization [facility] Address [address] [place] [address] Care Team Providers Care Horticultural Farm Manager Name Role Phone Octavio Gross MD Primary Care Provider Unavaila Kathie Cordova PA-C Primary Care Provider + Kirk Randle MD Primary Care Provider [phone] Ced Victoria MD Unavailable [phone] Virgie Trivedi NP Unavailable [phone] Kirk Randle MD Primary Care Provider [phone] Alana Celaya NP Unavailable [phone] Encounter Details Date Type Department Care Team Description 05/26/2019 Orders Only Internal Medicine - [address], [address] [place] [address] Octavio Gross MD Social History Tobacco Use Types Packs/Day [...] on filedocumented in this encounter Care Teams Horticultural Farm Manager Relationship Specialty Start Date End Date Octavio Gross MD PCP - General Internal Medicine 05/19/18 02/22/20 Kathie Le PA-C PCP - General Internal Medicine 02/23/20 07/11/20 Kirk Randle MD PCP - General Internal Medicine 07/12/20 06/04/21 Kirk Randle MD PCP - General Internal Medicine 06/05/21 Ced Victoria MD [address] [place] [address] [address] [place] [address] Associate Dentist Cardiovascular Disease 04/05/21 Virgie Trivedi NP [address] [place] [address] [address] [place] [address] Nurse Practitioner Cardiology 04/05/21 Alana Celaya NP [address] [place] [address] [facility] [place], [place] [phone] Nurse Practitioner Cardiology 07/17/23 documented as of this encounter
--- OUTSIDE RECORDS SUMMARY | 2024-11-10 11:05 | XMS_ITS | Encounter Summary ---
Author Organization [facility] Address [address] [place] [address] Care Team Providers Care Logistician Name Role Phone Octavio Gross MD Primary Care Provider Unavaila Kathie Cordova PA-C Primary Care Provider + Kirk Randle MD Primary Care Provider [phone] Ced Victoria MD Unavailable [phone] Virgie Trivedi NP Unavailable [phone] Kirk Randle MD Primary Care Provider [phone] Alana Celaya NP Unavailable [phone] Reason for Referral * EXTERNAL (Routine) - Authorized/Booked Specialty Diagnoses / Procedures Referred By Jacoby díaz Referred To Contact Ophthalmology Procedures REFERRAL TO EXTERNAL OPHTHALMOLOGY Octavio Gross MD [address] [place] [address] [place] [id number] Chris Greer Referral ID Status Reason Start Date Expiration Date V isits Requested Visits Authorized SEE NOTE Authorized/B ooked 11/17/2018 02/18/2019 1 1 Reason for Visit * Reason Onset Date Comments Cloth Napping Supervisor Feedback 11/17/2018 Dr. Greer Encounter Details Date Type Department Care Team Description 11/17/2018 Telephone Internal Medicine [address], [address] [place] [address] Octavio Gross MD Cloth Napping Supervisor Feedback (Dr. Greer) Social History Tobacco Use Types Packs/Day Years [...] encounter Miscellaneous Notes * Telephone Encounter - Latricia Cobos - 11/17/2018 2:30 PM EDT Please review this patients new referral request. The referral has been pended. Please complete thefollowing: If approved> sign order If denied>please give instructions and route to your practice nursing pool. Practice nurse should inform referrals and the patient if denied. * Telephone Encounter - Pat Espinosa - 11/17/2018 1:46 PM EDT What insurance does the patient have today? [employer] Preferred Effective 06/09/09: BS will not retro referral [...] insurance must be obtained and registered in [facility] or their referral can not be processed. Is this a retro request? NO. If yes for what date of service do you need the retro referral? N/A Who is calling to request this referral? Patient If the caller is not the patient, what is their name? N/A Ask the patient WHO referred them to this specialty: Patient saw Dr. Octavio Gross at [facility] forthe problem and was told if symptoms did not resolve or worsen they would refer them to this specialty FIRST and LAST NAME of SPECIALIST PATIENT is seeing: Dr. Chris Greer What specialty is this? Opthamologist DIAGNOSIS Patient is being seen for (Not a body part or a procedure): double vision in right eye Have you seen this SPECIALIST for this PROBLEM/DX before?NO If YES, when:n/a Have you checked REVIEW or the APPT DESK to see if this referral has already been done or has visits left? YES Is this visit:Initial Visit Address of Specialist:[address] [place] [address] Phone # of Specialist:[phone] Fax #: (if applicable):[phone] Does patient have an appointment scheduled?: YES Date of appointment- (including a retro-request): 12/15/2018 Is this appointment related to: Not MVA, WC or Surgery related documented in this encounter Plan of Treatment Not on file documented as of this encounter Visit Diagnoses Not on filedocumented in this encounter Care Teams Logistician Relationship Specialty Start Date End Date Octavio Gross MD PCP - General Internal Medicine 05/19/18 02/22/20 Kathie Le PA-C PCP - General Internal Medicine 02/23/20 07/11/20 Kirk Randle MD PCP - General Internal Medicine 07/12/20 06/04/21 Kirk Randle MD PCP - General Internal Medicine 06/05/21 Ced Victoria MD [address] [place] [address] [address] [place] [address] Extractor Operator Solvent Process Cardiovascular Disease 04/05/21 Virgie Trivedi NP [address] [place] [address] [address] [place] [address] Nurse Practitioner Cardiology 04/05/21 Alana Celaya NP [address] [place] [address] [facility] [place] [address] Nurse Practitioner Cardiology 07/17/23 documented as of this encounter
--- OUTSIDE RECORDS SUMMARY | 2024-11-10 11:05 | XMS_ITS | Encounter Summary ---
Author Organization [facility] Address [address] [place] [address] Care Team Providers Care Engineering And Scientific Programmer Name Role Phone Octavio Gross MD Primary Care Provider Unavaila Kathie Cordova PA-C Primary Care Provider + Kirk Randle MD Primary Care Provider [phone] Ced Victoria MD Unavailable [phone] Vigrie Trivedi NP Unavailable [phone] Kirk Randle MD Primary Care Provider [phone] Alana Celaya NP Unavailable [phone] Reason for Visit * Reason Onset Date Comments Pre Op Visit 09/10/2018 Cardiac Clearanc e Encounter Details Date Type Department Care Team Description 09/10/2018 Telephone Internal Medicine - [address], [address] [place] [address] Tasneem Mena MD Pre Op Visit (Cardiac Clearance) Social History Tobacco Use Types Packs/Day Years [...] encounter Miscellaneous Notes * Telephone Encounter - Tasneem Mena MD - 09/10/2018 10:07 AM EST No need for referal already had appointment with cardiology * Telephone Encounter - Varinder Pinon - 09/10/2018 8:50 AM EST Per your Pre-op note you stated pt needed a cardiac clearance was a referral place for cardiology or does pt have outside cardi? Please advise ? documented in this encounter Plan of Treatment Not on file documented as of this encounter Visit Diagnoses Not on filedocumented in this encounter Care Teams Engineering And Scientific Programmer Relationship Specialty Start Date End Date Octavio Gross MD PCP - General Internal Medicine 05/19/18 02/22/20 Kathie Le PA-C PCP - General Internal Medicine 02/23/20 07/11/20 iKrk Randle MD PCP - General Internal Medicine 07/12/20 06/04/21 Kirk Randle MD PCP - General Internal Medicine 06/05/21 Ced Victoria MD [address] [place] [address] [address] [place], [place] [phone] Stock Room Manager Cardiovascular Disease 04/05/21 Virgie Trivedi NP [address] [place] [address] [address] [place] [address] Nurse Practitioner Cardiology 04/05/21 Alana Celaya NP [address] [place] [address] [facility] [place], [place] [phone] Nurse Practitioner Cardiology 07/17/23 documented as of this encounter
--- OUTSIDE RECORDS SUMMARY | 2024-11-10 11:05 | XMS_ITS | Encounter Summary ---
Author Organization [facility] Address [address] [place] [address] Care Team Providers Care Highway Research Engineer Name Role Phone Octavio Gross MD Primary Care Provider Unavaila Kathie Cordova PA-C Primary Care Provider + Kirk Randle MD Primary Care Provider [phone] Ced Victoria MD Unavailable [phone] Virgie Trivedi NP Unavailable [phone] Kirk Randle MD Primary Care Provider [phone] Alana Celaya NP Unavailable [phone] Encounter Details Date Type Department Care Team Description 05/28/2019 Orders Only Medical Records [address] [place] [address] Rogers Delong MD Social History Tobacco Use Types Packs/Day [...] Associated Diagnosis Comments OUTSIDE VASCULAR STUDY Routine 05/22/2019 documented in this encounter Results * OUTSIDE VASCULAR STUDY (05/22/2019) Rogers Delong MD CARDIOLOGY documented in this encounter Visit Diagnoses Not on filedocumented in this encounter Care Teams Highway Research Engineer Relationship Specialty Start Date End Date Octavio Gross MD PCP - General Internal Medicine 05/19/18 02/22/20 Kathie Le PA-C PCP - General Internal Medicine 02/23/20 07/11/20 Kirk Randle MD PCP - General Internal Medicine 07/12/20 06/04/21 Kirk Randle MD PCP - General Internal Medicine 06/05/21 Ced Victoria MD [address] [place] [address] [address] [place] [id number] Toggler Cardiovascular Disease 04/05/21 Virgie Trivedi NP [address] [place] [address] [address] [place] [address] Nurse Practitioner Cardiology 04/05/21 Alana Celaya NP [address] [place] [address] [facility] [place] [address] Nurse Practitioner Cardiology 07/17/23 documented as of this encounter
--- OUTSIDE RECORDS SUMMARY | 2024-11-10 11:05 | XMS_ITS | Encounter Summary ---
Author Organization [facility] Address [address] [place] [address] Care Team Providers Care Airbrush Artist Photography Name Role Phone Ced Victoria MD Unavailable [phone] Virgie Trivedi NP Unavailable [phone] Kirk Randle MD Primary Care Provider [phone] Alana Celaya NP Unavailable [phone] Encounter Details Date Type Department Care Team Description 01/13/2024 Orders Only Medical Records [address] [place] [address] [place] Social History Tobacco Use Types [...] Associated Diagnosis Comments CHG PROTHROMBIN TIME Routine 12/30/2023 documented in this encounter Results * CHG PROTHROMBIN TIME (12/30/2023) [place] documented in this encounter Visit Diagnoses Not on filedocumented in this encounter Care Teams Airbrush Artist Photography Relationship Specialty Start Date End Date Kirk Randle MD [address] [place] [address] [address] [place] [address] PCP - General Internal Medicine 06/05/21 Ced Victoria MD [address] [place] [address] [address] [place] [address] Special Education Classroom Aide Cardiovascular Disease 04/05/21 Virgie Trivedi NP [address] [place] [address] [address] [place] [address] Nurse Practitioner Cardiology 04/05/21 Alana Celaya NP [address] [place] [address] [facility] [place] [address] Nurse Practitioner Cardiology 07/17/23 documented as of this encounter
--- OUTSIDE RECORDS SUMMARY | 2024-11-10 11:05 | XMS_ITS | Encounter Summary ---
Author Organization [facility] Address [address] [place] [address] Care Team Providers Care Out Of School Hours Care Worker Name Role Phone Octavio Gross MD Primary Care Provider Unavaila Kathie Cordova PA-C Primary Care Provider + Kirk Randle MD Primary Care Provider [phone] Ced Victoria MD Unavailable [phone] Virgie Trivedi NP Unavailable [phone] Kirk Randle MD Primary Care Provider [phone] Alana Celaya NP Unavailable [phone] Encounter Details Date Type Department Care Team Description 01/11/2019 SCAN Medical Records [address] [place] [address] Abstract, Provider Social History Tobacco Use Types [...] on filedocumented in this encounter Care Teams Out Of School Hours Care Worker Relationship Specialty Start Date End Date Octavio Gross MD PCP - General Internal Medicine 05/19/18 02/22/20 Kathie Le PA-C PCP - General Internal Medicine 02/23/20 07/11/20 Kirk Randle MD PCP - General Internal Medicine 07/12/20 06/04/21 Kirk Randle MD PCP - General Internal Medicine 06/05/21 Ced Victoria MD [address] [place] [address] [address] [place] [address] Truss Maker Cardiovascular Disease 04/05/21 Virgie Trivedi NP [address] [place] [address] [address] [place] [address] Nurse Practitioner Cardiology 04/05/21 Alana Celaya NP [address] [place] [address] [facility] [place], [place] [phone] Nurse Practitioner Cardiology 07/17/23 documented as of this encounter
--- OUTSIDE RECORDS SUMMARY | 2024-11-10 11:05 | XMS_ITS | Data Portability ---
Author Organization [facility] [employer] [facility], Main Office Address [address], [address] [place] [address] Care Team Providers Care Prescriptionist Name Role Phone BARI AMIN - 2ND FLOOR OTHER Assessment Encounter Date Assessment Date Assessment LastModified by Organization Details LastModified Time 05/23/2021 05/23/202105/23 wbc 7.2, hgb 13.6, plt 262, na 142, k 3.7, creat 0.8, sed rate 24, crp 3.76 [email or web address] Not available 05/23/2021 12:08:48 Plan of Treatment [...] By Organization Details Last Modified Time 05/23/2021 [id number] exam of pt, revi ew of chart, discussion with social work, interventional radiology 50 minutes [email or web address] Not available 05/23/2021 12:09:48 Reason for Referral None Reported. Problems Name Problem SNOMED Code Status Onset Date Resolution Date Notes Provider Name and Address Organization Details Recorded Time Infective endocarditi s 295122588 Active 2020 STACY SULLIVAN [address] [facility], [address], [place], [address], [facility] 1 08:27:08 Osteoarthri tis 191361477 Active 2020 STACY SULLIVAN [address] [facility], [address], [place], [address], [facility] 1 08:27:39 History of cerebrovasc ular accident 726033350 Active 2020 STACY SULLIVAN [address], [address], [place], [address], [facility] [employer] 08:28:06 Recurrent falls 052674962 Active 2020 STACY SULLIVAN [address], [address], [place], [address], [facility] [employer] 1 08:28:20 Pressure ulcer Active 2020 STACY SULLIVAN [address], [address], [place], [address], [facility] 1 08:30:05 Deep venous thrombosis of upper extremity 755075702 Active 2020 STACY SULLIVAN [address], [address], [place], [address], [facility] 1 08:30:52 Multinodula r goiter 319402847 Active 2020 STACY SULLIVAN [address], [address], [place], [address], [facility] 08:32:27 Hypomagnese ezequiel 239910223 Active 2020 STACY SULLIVAN [address], [address], [place], [address], [facility] 1 08:57:53 Asthenia 57543252 Active 2020 Rosenda ferro, [facility] 11:24:32 Osteoarthri tis of left knee joint 9242072741117 09 Active 2018 Feliz Gonzalez MD [address], [address], [place], [address], [facility] 9 15:05:21 Essential hypertensio n 51208994 Active 2018 Feliz Gonzalez MD [address], [address], [place], [address], [facility] 9 15:05:25 Mixed hyperlipide ezequiel 831558329 Active 2018 Feliz Gonzalez MD [address] [facility], [address], [place], [address], [employer] 9 15:05:33 Unsteady gait Active 2018 Feliz Gonzalez MD [address] [facility], [address], [place], [address], [employer] 9 15:05:38 Atrial fibrillatio n 27839207 Active 2018 STACY SULLIVAN [address] [facility], [address], [place], [address], [employer] [facility] 08:43:44 Problem Notes None recorded. Procedures Surgical History Date Name Laterality Status Provider Name and Address Organization Details Recorded Time percutaneous transluminal coronary angioplasty completed STACY SULLIVAN [address] [facility], [address], [place], [address], [employer] 05/05/2021 08:29:08 Imaging Results None recorded. Procedure Notes None recorded. Medical Equipment None Reported. Allergies Allergen ID Allergen Name Allergen Category Reaction Reaction Severity Criticality Documentation Date Start Date Code Code System Note Provider Name and Address Organization Details Recorded Time 85302 Plavix medicatio n rash severe Not available 10/13/2018 58432 2 RxNorm Not Available Not Available Not [...] % 145 mm[Hg] 73 mm[Hg] Rosenda bower [employer] [facility] 11:13:36 Date Recorded Heart rate Respiratory rate Body temperature Oxygen saturation Oxygen saturation in Arterial blood by Pulse oximetry Systolic blood pressure Diastolic blood pressure Provider Name and Address Organization Details Last Updated DateTime 1 73 /min 18 /min 97.4 [degF] 93 % 93 % 129 mm[Hg] 89 mm[Hg] HERMINIA DENSON NP [address] [facility], [address], [place], [address], [facility] 14:20:11 Date Recorded Body temperature Oxygen saturation Oxygen saturation in Arterial blood by Pulse oximetry Heart rate Respiratory rate Systolic blood pressure Diastolic blood pressure Provider Name and Address Organization Details Last Updated DateTime 96.6 [degF] 97 % 97 % 89 /min 18 /min 124 mm[Hg] 81 mm[Hg] STACY Weber [address] [facility], [address], [place], [address], [facility] [employer] [facility] 1 11:12:09 Date Recorded Systolic blood pressure Diastolic blood pressure Provider Name and Address Organization Details Last Updated DateTime 05/10/2021 124 mm[Hg] 65 mm[Hg] Feliz Gonzalez MD [address] [facility], [address], [place], [address], [facility] 05/10/2021 12:55:10 Date Recorded Systolic blood pressure Diastolic blood pressure Provider Name and Address Organization Details Last Updated DateTime 05/17/2021 104 mm[Hg] 74 mm[Hg] Feliz Gonzalez MD [address] [facility], [address], [place], [address], [facility] 05/17/2021 15:20:50 Social History Question Answer Notes LastModified by Organizat ion Details LastModified Time Tobacco Smoking Status Never Smoker Not Available [facility] 07/05/2020 03:13:23 Do You Have An Advance Directive? Yes FULL CODE/use Dialysis/unde cided About Nutrition/use Hydration Information not available 05/05/2021 What Is Your Level Of Alcohol Consumption? Occasional [id number] Information not available 07/05/2020 What Is Your Code Status? Full Code Information not available 05/05/2021 Legal Guardian? No Information not available 05/05/2021 Do You Have A Medical Power Of Eris[place] Attorney? Yes HCP On File Information not available 05/05/2021 Do You Feel Stressed (tense, Restless, Nervous, Or Anxious, Or Unable To Sleep At Night)? [id number] Information not available 05/05/2021 Has Tobacco Cessation [...] mcg/0.25mL dose 10/11/2020 completed STACY SULLIVAN [address] [facility], [address], [place], [address], [facility] 05/05/2021 11:09:25 COVID-19, mRNA, LNP-S, PF, 100 mcg/0.5mL dose or 50 mcg/0.25mL dose 11/08/2020 completed STACY SULLIVAN [address] [facility], [address], [place], [address], [facility] 05/05/2021 11:09:40 influenza, unspecified formulation 09/08/2018 completed Marah Wise [facility] [employer] [facility] 12/19/2018 15:12:21 Past Encounters Encounter ID Performer Location Encounter Start Date Encounter Closed Date Diagnosis/Indication Diagnosis SNOMED-CT Code Diagnosis ICD10 Code Diagnosis Note [id number] Feliz Gonzalez MD [address] [address] 10/10/2018 14:54:06 10/28/2018 16:15:02 Osteoarthritis of left knee joint 7382956111 81036 M17.12 end stage OA now s/p TKR leftfollow ortho recsPT OT eval and treatmonit or for pain control and constipati onmonitor and adjust coumadin for DVT prophylaxi sgiven sub-therap utic INR will add lovenox 40 mg sc qd till theraputic Essential hypertension 66416087 I10 metoprolol 25 mg qdmonitor bp Mixed hyperlipidemia 267 628216 E78.2 simvastati n 40 mg qdcontinue Unsteady gait 133278118 R26.81 PT OT eval and treat [id number] YOHAN KOLOSKI, [employer] [facility] [address] [address] [place] [address] 10/13/2018 08:02:37 10/28/2018 16:16:29 Osteoarthritis of left knee joint 9051203525 09274 M17.12 follow ortho recsmonito r and adjust coumadinlo venox 40 mg sc qd till theraputic follow up with ortho and PCP Essential hypertension 77932978 I10 metoprolol 25 mg qdfollow up with PCP Mixed hyperlipidemia 267 829160 E78.2 simvastati n 40 mg qdfollow up with PCP Unsteady gait 213889455 R26.81 follow up with PCP Atrial fibrillation 4943 6004 I48.2 coumadin therapymon itor INRscontin ue lovenox til over 2follow up with cardiology and PCP [id number] STACY SULLIVAN [facility] [address] [place] [address] 05/05/2021 08:21:13 05/10/2021 15:30:51 Infective endocarditis 812458100 I33.0 nafcillin 2 gm IV q 4 hrs with stop date of 05/22/21pro biotic bidPICC line monitoring monitor labs Osteoarthritis 308815221 M15.0 tylenol 650 mg q 4 hrs prnmonitor pain Mixed hyperlipidemia 267 514683 E78.2 simvastati n 20 mg qdmonitor labs Essential hypertension 17879101 I10 metoprolol tartrate 25 mg bidlasix 20 mg qdklor con 20 meq qdmonitor b/p and labs Atrial fibrillation 4943 6004 I48.19 metoprolol tartrate 25 mg bidcoumadi n therapymon itor INRs History of cerebrovascular accident 561243431 Z86.73 metoprolol tartrate 25 mg bidcoumadi n therapyato rvastatin 20 mg qdmonitor Recurrent falls 23712732 2 R29.6 PT/OT eval and treatmonit or for safety Pressure ulcer 905202886 L89.90 multivitam in with mineralsvi tamin C 500 mg qdwound care as orderedmon itor frequently use pressure relief devices Deep venou s thrombosis of upper extremity 443116621 I82.621 coumadin therapymon itor INRs Multinodular goiter 2375 39769 E04.2 noted in historymon itor Hypomagnesemia 130543885 E83.42 magnesium 400 mg qdmonitor labs [id number] STACY SULLIVAN [facility] [address] [address] 05/08/2021 10:39:43 05/11/2021 08:35:04 Infective endocarditis 147705715 I33.0 nafcillin 2 gm IV q 4 hrs with stop date of 05/22/21pro biotic bidPICC line monitoring monitor labs Atrial fibrillation 4943 6004 I48.19 metoprolol tartrate 25 mg bidcoumadi n therapymon itor INRs Essential hypertension 48572854 I10 metoprolol tartrate 25 mg bidlasix 20 mg qdklor con 20 meq qdmonitor b/p and labs [id number] Feliz Gonzalez MD [facility] [address] [address] 05/10/2021 12:53:56 05/17/2021 15:11:21 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 see HPI and above Infective endocarditis 335446271 I33.0 see HPIcontinu ed on nafcillin 2 gm q 4 hours through 05/22add probioticm onitor cbcupdate ID with concerns Pressure ulcer 812609651 L89.90 see wound care notesconti nue treatment Deep venou s thrombosis of upper extremity 764198453 I82.621 RUE DVTlovenox now bridged to coumadinmo nitor INR and titrate dose Osteoarthritis 006676595 M15.0 known at baselinemo nitor for sx controltit rate meds prn Mixed hyperlipidemia 267 271351 E78.2 simvastati n 20 mg qdcontinue d Essential hypertension 08398435 I10 metoprolol 25 mg bidlasix 20 mg qdmonitor bp and need to titrate meds Atrial fibrillation 4943 6004 I48.19 carrying dxmetoprol ol 25 mg bidtitrate coumadin dosemonito r for rate control Recurrent falls 67226675 2 R29.6 PT OT eval and treatmonit or fall risk Asthenia 42563230 R53.1 highly motivated to gain strength and return home [id number] Rosenda Mcgill [facility] [address] [address] 05/11/2021 11:11:13 05/17/2021 15:26:07 Asthenia 45648668 R53.1 pt with fall this amfell from bed to floorno apparent injuriessa fety precaution sPT/OT eval and tx [id number] Feliz Gonzalez MD [facility] [address] [address] 05/17/2021 15:20:07 05/19/2021 15:47:47 Infective endocarditis 356188187 I33.0 nafcillin 2 gm q 4 hours through 05/22 to complete coursemoni tor cbcupdate ID with concernsgo al is discharge on 05/23 Bacterial arthritis 4824 5008 M00.88 see HPI and above Deep venou s thrombosis of upper extremity 362461375 I82.621 RUE DVTmonitor INR and titrate dose Asthenia 39936412 R53.1 improving with therapymov ing towards discharge [id number] HERMINIA DENSON NP [facility] [address] [address] 05/18/2021 14:18:12 05/22/2021 14:35:55 Infective endocarditis 464748535 I33.0 nafcillin 2 gm q 4 hours through 05/22 to complete coursemoni tor cbc - stableupda te ID with caroline al is discharge on 05/23Nsg. working on appt. for IV line removal Bacterial arthritis 4824 5008 M00.88 see HPI and above Deep venou s thrombosis of upper extremity 104039256 I82.621 RUE DVTmonitor INR and titrate dose Asthenia 32866642 R53.1 improving with therapymov ing towards discharge Atrial fibrillation 4943 6004 I48.19 [id number] STACY Weber [facility] [address] [address] 05/23/2021 11:10:46 05/25/2021 11:25:14 Infective endocarditis 033060171 I33.0 ok to dc home with meds and VNA services todayfinis hed nafcillin 2 gm q 4 hours through 05/22pt will not need to have central line flushed daily as [facility] this [facility] by [facility] on[facility] radiology department where he is having it removedf/u cardiologi st on 05/31f/u with pcp as out pt Bacterial arthritis 4824 5008 M00.88 as above Pressure ulcer 755879140 L89.90 will be followed by [facility] Deep venou s thrombosis of upper extremity 186600733 I82.621 RUE DVTcoumadi n therapeuti cwill have [facility] draw next PT/INR when he is admitted to their service with results sent to PCP Mixed hyperlipidemia 267 608136 E78.2 atorvastat in 20 mg qdf/u pcp Essential hypertension 47904686 I10 metoprolol 25 mg bidlasix 20 mg [...] Flores Member ID Guarantor Name 05/10/2021 1 [facility] - MEDICARE PREFERRED (MEDICARE REPLACEMENT HMO) MJ Flynn [id number] 1 Vladimir Flynn 05/11/2021 1 [facility] - MEDICARE PREFERRED (MEDICARE REPLACEMENT HMO) MJ Flynn [id number] 1 Vladimir Flynn 05/17/2021 1 [facility] - MEDICARE PREFERRED (MEDICARE REPLACEMENT HMO) MJ Flynn [id number] 1 Vladimir Flynn 05/18/2021 1 [facility] - MEDICARE PREFERRED (MEDICARE REPLACEMENT HMO) MJ Flynn [id number] 1 Vladimir Flynn 05/23/2021 1 [facility] - MEDICARE PREFERRED (MEDICARE REPLACEMENT HMO) MJ Flynn [id number] 1 Vladimir Flynn Notes Date Note Type [...] care and therapy Feliz Gonzalez MD [address] [facility], [address], [place], [address], [facility] 05/10/2021 13:19:34 05/11/2021 text/html Pt being seen [...] daily and recheck INR Saturday. Rosenda ferro, [facility] 05/11/2021 12:15:08 05/17/2021 text/html Patient is a 81 yo male resident seen for acute rounding. Completing Ab for endocarditis with potential discharge date of 05/23. Patient on coumadin for a fib with dose adjusted today. Strength and conditioning improving with therapy Feliz Gonzalez MD [address] [facility], [address], [place], [address], [facility] 05/17/2021 15:26:05 05/18/2021 text/html Vladimir is seen to day for an acute visit.Alert, pleasant, NAD. Uvaldo. abx. tx. well, goal home next . when IV abx. completed.Feels well, no c/o.Working with rehab - good progress. HERMINIA DENSON NP [address] [facility], [address], [place], [address], [facility] 05/18/2021 15:00:40 05/23/2021 text/html pt seen today fo r discharge summary. Patient presented to [facility] er from [place] (where he had been sent after 2 days in [facility] for rehab) with fever, hypotension and shaking [...] are resolving. was sent from there to [facility] for acute rehab. He [...] no concerns per nursing. STACY Weber [address] [facility], [address], [place], [address], [employer] 05/23/2021 12:09:56
--- OUTSIDE RECORDS SUMMARY | 2024-11-10 11:06 | XMS_ITS | Encounter Summary ---
Author Organization [facility] Address [address] [place] [address] Care Team Providers Care Glass Robot Operator Name Role Phone Ced Victoria MD Unavailable [phone] Virgie Trivedi NP Unavailable [phone] Kirk Randle MD Primary Care Provider [phone] Alana Celaya NP Unavailable [phone] Reason for Visit * Reason Onset Date Comments Process Development Technician Feedback 07/28/2021 TIMO JAIME Encounter Details Date Type Department Care Team Description 07/28/2021 Telephone Internal Medicine - [address], [address] [place] [address] Kirk Randle MD [address] [place] [address] Process Development Technician Feedback (TIMO KELLOGG) Social History Tobacco Use Types Packs/Day Years [...] * Telephone Encounter - Judi Edmond - 07/28/2021 10:34 AM EST [facility] HCS Review Request Submission Status [ Save Response to Batch ] Request: [id number] [id number] [facility] Healthcare Trace #: [id number] Subscriber: VLADIMIR FLYNN Submitter : KIRK RANDLE Submitter Type: Provider : 1940 Referral (#[id number]) Specialty Care Review Type: Initial Certification Status : Certified in total Service Type : Medical Care Place Of Service : Office Visits : 6 Service Date : 08/07/2021-08/07/2022 Service Providers Provider Name ID Provider Type TIMO SNOW VALDEZ NPI : [id number] Service Provider * Telephone Encounter - Judi Edmond - 07/28/2021 10:32 AM EST No thank you I appreciate your help. * Telephone Encounter - Kristen Huffman - 07/28/2021 10:13 AM EST 08/07/2021 - next appointment date Thank you for being SO prompt!! * Telephone Encounter - Judi Edmond - 07/28/2021 10:08 AM EST I would need to know a date of the appointment to process the insurance referral. * Telephone Encounter - Kristen Huffman - 07/28/2021 9:53 AM EST What insurance does the patient have today? [facility] MDCR Pref Effective 06/09/09: BCBS will not retro referral [...] insurance must be obtained and registered in [facility] or their referral can not be processed. Is this a retro request? NO. If yes for what date of service do you need the retro referral? [facility] requests 10 additional visits Who is calling to request this referral? [facility] If the caller is not the patient, what is their name? Felicita Ask the patient WHO referred them to this specialty: Not an initial visit; it is for follow up/continuation of care. Patients PCP is Kirk Randle FIRST and LAST NAME of SPECIALIST PATIENT is seeing: JUAN Mccormick NPI # [id number] What specialty is this? Wound care DIAGNOSIS Patient is being seen for (Not a body part or a procedure): bilateral heel wounds Have you seen this SPECIALIST for this PROBLEM/DX before?YES If YES, when: unknown Have you checked REVIEW or the APPT DESK to see if this referral has already been done or has visits left? NO Is this visit:Follow Up Address of Specialist: [address] [place] [address] [place] [address] Phone # of Specialist: [phone] Fax #: (if applicable):[phone] Does patient have an appointment scheduled?: YES Date of appointment- (including a retro-request): 08/07/2021 - AND ASKS FOR 10 MORE VISITS - WHICH WILL INCLUDE THE 08/07/2021 DATE Is this appointment related to: Not MVA, WC or Surgery related [facility] sent fax for additional visits. - PLEASE FAX APPROVAL TO THEIR FAX NUMBER documented in this encounter Plan of Treatment Not on file documented as of this encounter Visit Diagnoses Not on filedocumented in this encounter Care Teams Glass Robot Operator Relationship Specialty Start Date End Date Kirk Randle MD [address] [place] [address] [address] [place] [address] PCP - General Internal Medicine 06/05/21 Ced Victoria MD [address] [place] [address] [address] [place] [address] Treatment Technician Cardiovascular Disease 04/05/21 Virgie Trivedi NP [address] [place] [address] [address] [place] [address] Nurse Practitioner Cardiology 04/05/21 Alana Celaya NP [address] [place] [address] [facility] [place] [address] Nurse Practitioner Cardiology 07/17/23 documented as of this encounter
--- OUTSIDE RECORDS SUMMARY | 2024-11-10 11:06 | XMS_ITS | Encounter Summary ---
Author Organization [facility] Address [address] [place] [address] Care Team Providers Care Injection Mold Technician Name Role Phone Octavio Gross MD Primary Care Provider Unavaila Kathie Cordova PA-C Primary Care Provider + Kirk Randle MD Primary Care Provider [phone] Ced Victoria MD Unavailable [phone] Virgie Trivedi NP Unavailable [phone] Kirk Randle MD Primary Care Provider [phone] Alana Celaya NP Unavailable [phone] Reason for Visit * Reason Comments E-prescribe Rx Request Encounter Details Date Type Department Care Team Description 08/28/2018 [facility] Internal Medicine - [address], [address] [place] [address] Octavio Gross MD E-prescribe Rx Request Social [...] on filedocumented in this encounter Care Teams Injection Mold Technician Relationship Specialty Start Date End Date Octavio Gross MD PCP - General Internal Medicine 05/19/18 02/22/20 Kathie Le PA-C PCP - General Internal Medicine 02/23/20 07/11/20 Kirk Randle MD PCP - General Internal Medicine 07/12/20 06/04/21 Kirk Randle MD PCP - General Internal Medicine 06/05/21 Ced Victoria MD [address] [place] [address] [address] [place] [address] Call Center Team Leader Cardiovascular Disease 04/05/21 Virgie Trivedi NP [address] [place] [address] [address] [place] [address] Nurse Practitioner Cardiology 04/05/21 Alana Celaya NP [address] [place] [address] [facility] [place] [address] Nurse Practitioner Cardiology 07/17/23 documented as of this encounter
--- OUTSIDE RECORDS SUMMARY | 2024-11-10 11:06 | XMS_ITS | Encounter Summary ---
Author Organization [facility] Address [address] [place] [address] Care Team Providers Care Chainstitch Seat Joiner Name Role Phone Ced Victoria MD Unavailable [phone] Virgie Trivedi NP Unavailable [phone] Kirk Randle MD Primary Care Provider [phone] Alana Celaya NP Unavailable [phone] Encounter Details Date Type Department Care Team Description 08/14/2021 Police Communications Operator Report Medical Records [address] [place] [id number] [place] [address] Social History Tobacco Use Types Packs/Day Years [...] on filedocumented in this encounter Care Teams Chainstitch Seat Joiner Relationship Specialty Start Date End Date Kirk Randle MD [address] [place] [address] [address] [place] [address] PCP - General Internal Medicine 06/05/21 Ced Victoria MD [address] [place] [address] [address] [place] [address] Natural Resource Economist Cardiovascular Disease 04/05/21 Virgie Trivedi NP [address] [place] [address] [address] [place] [address] Nurse Practitioner Cardiology 04/05/21 Alana Celaya NP [address] [place] [address] [facility] [place] [address] Nurse Practitioner Cardiology 07/17/23 documented as of this encounter
--- OUTSIDE RECORDS SUMMARY | 2024-11-10 11:06 | XMS_ITS | Clinical Summary ---
Author Organization [facility] Address [address] [facility] [place] [address] Phone Care Team Providers Care Chair Mechanic Name Role Phone Kirk Randle MD Primary Care Provider Allergies Active Allergy Reactions Criticality Noted Date Comments Clopidogrel Rash 07/26/2010 Medications metoprolol succinate (TOPROL-XL) 25 mg 24 hr tablet TAKE ONE TABLET BY MOUTH EVERY DAY 90 tablet 1 07/21/20 24 Active ADHESIVE TAPE TOP 1 each by Not Applicable route. every 30 days. 05/21/20 Active medical supply, miscellaneous (MISCELLANEOUS MEDICAL SUPPLY MISC) Apply 1 each topically 3 (three) times a day. 11/02/19 22 Active medical supply, miscellaneous (MISCELLANEOUS MEDICAL SUPPLY MISC) 1 each by Not Applicable route. every 30 days. 05/21/20 23 Active medical supply, miscellaneous (MISCELLANEOUS MEDICAL SUPPLY MISC) 1 each by Not Applicable route 3 (three) times a day. 11/02/19 22 Active medical supply, miscellaneous (MISCELLANEOUS MEDICAL SUPPLY MISC) 2 each by Not Applicable route 3 (three) times a day. 11/02/19 Active multivitamin (MULTIPLE VITAMINS ORAL) Take 1 tablet by mouth 1 (one) time each day. Active OMEGA-3 FATTY ACIDS ORAL Take 1 capsule by mouth 1 (one) time each day. Active miscellaneous medical supply misc Apply 2 each topically. every 30 days. 05/21/20 Active miscellaneous medical supply misc Apply 2 each topically. every 30 days. 05/21/20 Active acetaminophen (TYLENOL) 325 mg tablet Take 2 tablets (650 mg total) by mouth every 6 (six) hours if needed for mild pain or moderate pain. for up to 10 days. 12/27/19 23 Active fluticasone propionate (FLONASE) 50 mcg/actuation nasal spray Administer 2 sprays into each nostril 1 (one) time each day. for 360 days. 05/14/20 24 025 Active furosemide (LASIX) 20 mg tablet Take 1 tablet (20 mg total) by mouth 1 (one) time each day. 06/10/20 24 Active warfarin (COUMADIN) 5 mg tablet Take 1 tablet (5 mg total) by mouth. See Admin Instructions for 90 days. May cause heavy bleeding. Take at same time every day. Do not change dietary habits. 10/08/19 24 Active atorvastatin (LIPITOR) 20 mg tablet Take 1 tablet (20 mg total) by mouth 1 (one) time each day. 90 tablet 09/18/19 25 Active warfarin (COUMADIN) 5 mg tablet Take 1 tablet (5 mg total) by mouth 1 (one) time each day with dinner. See Admin Instructions. May cause heavy bleeding. Take at same time every day. Do not change dietary habits. [facility] directs coumadin instructions 90 tablet 11 10/20/19 25 Active warfarin (COUMADIN) 5 mg tablet Take 1 tablet (5 mg total) by mouth. See Admin Instructions. May cause heavy bleeding. Take at same time every day. Do not change dietary habits. [facility] directs coumadin instructions 04/03/20 23 025 Discontin ued(Reord er) Active Problems Problem Noted Date Diagnosed Date [...] be anticoagulated on Coumadin for stroke reduction. [id number] score of 5 for heart failure, hypertension, [...] (coronary artery disease) 05/14/2018 Overview (08/04/2024): Old [place]; Stress test -ve 2010, treated in [facility] in 2003, stents put in. Last [...] Plan: Patient continues to follow closely with [facility] vascular surgery. Assessment & Plan (10/09/2024 5:27 [...] Encounters Date Type Department Care Team Description 11/02/2024 Telephone Internal Medicine - [place] [address] [facility] [address] [place] [phone] Yumi Jordan [place] faxed order ([employer]) 10/09/2024 9:50 AM EST Office Visit [facility] [address] [place] [address] Ced Victoria MD Atrial fibrillation, unspecified type (CMS/HCC) (Primary Dx); Coronary artery disease involving [place] coronary artery of [place] heart without angina pectoris; Dilated cardiomyopathy (CMS/HCC); Chronic venous insufficiency; Cardiomyopathy, unspecified type (CMS/HCC) 10/07/2024 Telephone Internal Medicine - [place] [address] [facility] [address] [place] [phone] Kirk Randle MD Joseph - Referral 09/30/2024 9:00 AM EST Office Visit Internal Medicine [facility] [address] [facility] [address] [place] [phone] Kirk Randle MD Primary hypertension (Primary Dx); Cardiomyopathy, unspecified type (CMS/HCC); Hypercholesterolemia 09/18/2024 Telephone [facility] [address] [facility] [address] [place] [address] Ced Victoria MD Med Refill (Atorvastatin) from Last [...] PROCEDURE: HISTORICAL CARDIAC CATH KNEE ARTHROSCOPY PROCEDURE: OK ARTHROSCOPY AID TX SPINE&/FX KNEE W/O FIXJ OTHER SURGICAL HISTORY 05/19/2018 Right PROCEDURE: OK ENDOVEN ABLTJ INCMPTNT VEIN XTR LASER 1ST VEIN TOTAL KNEE ARTHROPLASTY 10/07/2018 Right PROCEDURE: HISTORICAL TOTAL KNEE REPLACE; COMMENT: [facility] - Dr. Cazares EYE SURGERY Bilateral PROCEDURE: HISTORICAL EYE SURGERY; COMMENT: cataracts BYPASS GRAFT 08/16/2022 Right PROCEDURE: OK AMPUTATION TOE METATARSOPHALANGEAL JOINT; COMMENT: R 5th toe OTHER SURGICAL HISTORY 08/16/2022 Right PROCEDURE: OK INCISION BONE CORTEX FOOT; COMMENT: R 5th metatarsal OTHER SURGICAL HISTORY 10/23/2022 PROCEDURE: OK SLCTV CATHJ 3RD+ ORD SLCTV ABDL PEL/LXTR BRNCH OTHER SURGICAL HISTORY 10/23/2022 PROCEDURE: X-RAY EXAM OF ARM/LEG ARTERY OTHER SURGICAL HISTORY 10/23/2022 PROCEDURE: ULTRASOUND GUIDANCE FOR VASCULAR AC OTHER SURGICAL HISTORY 07/09/2023 PROCEDURE: OK REVSC OPN/PRQ TIB/RON W/ANGIOPLASTY UNI OTHER SURGICAL HISTORY 07/09/2023 PROCEDURE: ULTRASOUND GUIDANCE FOR VASCULAR AC Medical History Medical History Date Comments Atrial fibrillation (CMS/HCC) DX :Atrial fibrillation (HCC) Coronary artery disease DX:Coron randy artery disease; COMMENT: Old [place]; Stress test -ve 2010, treated in [facility] in 2004, stents put in. Cataracts, [...] Recorded Sex Assigned at Not on file Legal Sex Male 9:42 AM EST Gender Identity Not on file Sexual Orientation Not on file Obstetrics History Last Filed [...] AM EDT Office Visit Internal Medicine - [place] [address] [facility] [address] [place] [phone] Kirk Randle MD 175 [facility] [address] [place] [address] 04/19/2025 10:10 AM EDT Office Visit [facility] [address] [place] [phone] Virgie Trivedi, GILBERTO [address] [place] [address] [address] [place] [address] 07/14/2025 1:00 PM EST Appointment [facility] Ultrasound [address] [place] [address] Health Maintenance Due Date Last Done [...] (Lipid Panel) 09/30/2029 09/30/2024, 12/04/2021 Pneumococcal Vaccine: 50+ Years Completed 07/30/2017, 06/21/2015 COVID-19 Vaccine Completed [...] patient's age to complete this topic Meningococcal B Vacine Aged Out No lo nger eligible based on patient's age to complete [...] ms GEMUSE QTc 377 ms GEMUSE R [place] 66 degrees GEMUSE T [place] -5 degrees GEMUSE ECG Interpretation Atrial fibrillation with slow ventricular response Possible Inferior infarct (cited on or before 02-APR-2021) Abnormal ECG When compared with ECG of 24-OCT-2022 16:17, QT has shortened Confirmed by Kathya VICTORIA JAMES ([id number]) on 10/09/2024 5:06:39 PM GEMUSE 10/09/2024 10:2 5 AM EST 10/09/2024 5:06 PM EST us Ced Victoria MD ECG ORDERABLES Final Result GEMUSE * Lipid panel with reflex to direct LDL (09/30/2024 10:13 AM EST) Cholesterol 117 0 - 200 mg/dL LAB CHEMISTRY METHOD 09/30/2024 1:14 PM EST [facility] Triglycerides 77 0 - 150 mg/dL LAB CHEMISTRY METHOD 09/30/2024 1:14 PM EST [facility] HDL 48 >=40 mg/dL LAB CHEMISTRY METHOD 09/30/2024 1:14 PM EST [facility] LDL Calculated 54 0 - 100 mg/dL LAB CHEMISTRY METHOD 09/30/2024 1:14 PM EST [facility] VLDL Cholesterol Ric 15.4 mg/dL LAB CHEMISTRY METHOD 09/30/2024 1:14 PM EST [facility] Non HDL Chol. (LDL+VLDL) 69 <145 mg/dL LAB CHEMISTRY METHOD 09/30/2024 1:14 PM EST [facility] Chol/HDL Ratio 2.4 0.0 - 4.4 LAB CHEMISTRY METHOD 09/30/2024 1:14 PM EST [facility] Blood Venous blood specimen / Unknown Venipuncture / Unknown 09/30/2024 10:13 AM EST 09/30/2024 11:01 AM EST us Kirk Randle MD LAB BLOOD ORDERABLES Final Resul t [facility] [address] [place] [address], * (ABNORMAL) CBC auto differential (09/30/2024 10:13 AM EST) [facility] Signature WBC 9.6 4.8 - 10.8 K/mcL LAB HEMETOLOGY METHOD 09/30/2024 11:30 AM EST [facility] RBC 5.30 4.50 - 5.50 M/mcL LAB HEMETOLOGY METHOD 09/30/2024 11:30 AM [facility] Hemoglobin 16.1 13.5 - 17.5 g/dL LAB HEMETOLOGY METHOD 09/30/2024 11:30 AM [facility] Hematocrit 50.0 42.0 - 54.0 % LAB HEMETOLOGY METHOD 09/30/2024 11:30 AM [facility] MCV 95.1 79.0 - 98.0 FL LAB HEMETOLOGY METHOD 09/30/2024 11:30 AM [facility] MCH 30.6 27.0 - 32.0 pcg LAB HEMETOLOGY METHOD 09/30/2024 11:30 AM [facility] MCHC 32.2 32.0 - 37.0 g/dL LAB HEMETOLOGY METHOD 09/30/2024 11:30 AM [facility] RDW 13.3 11.0 - 15.0 % LAB HEMETOLOGY METHOD 09/30/2024 11:30 AM [facility] Platelets 227 130 - 400 K/mcL LAB HEMETOLOGY METHOD 09/30/2024 11:30 AM [facility] MPV 11.8(H) 7.0 - 11.0 FL LAB HEMETOLOGY METHOD 09/30/2024 11:30 AM [facility] NRBC 0.0 <1.0 % LAB HEMETOLOGY METHOD 09/30/2024 11:30 AM [facility] NRBC Absolute 0.00 <0.10 K/mcL LAB HEMETOLOGY METHOD 09/30/2024 11:30 AM [facility] Neutrophils Relative 67.5 % LAB HEMETOLOGY METHOD 09/30/2024 11:30 AM [facility] Lymphocytes Relative 20.8 % LAB HEMETOLOGY METHOD 09/30/2024 11:30 AM [facility] Monocytes Relative 9.0 % LAB HEMETOLOGY METHOD 09/30/2024 11:30 AM [facility] Eosinophils Relative 1.9 % LAB HEMETOLOGY METHOD 09/30/2024 11:30 AM [facility] Basophils Relative 0.4 % LAB HEMETOLOGY METHOD 09/30/2024 11:30 AM [facility] Immature Granulocytes Relative 0.4 % LAB HEMETOLOGY METHOD 09/30/2024 11:30 AM [facility] Neutrophils Absolute 6.48 1.50 - 7.00 K/mcL LAB HEMETOLOGY METHOD 09/30/2024 11:30 AM [facility] Lymphocytes Absolute 2.00 1.00 - 5.00 K/mcL LAB HEMETOLOGY METHOD 09/30/2024 11:30 AM [facility] Monocytes Absolute 0.86 0.20 - 1.00 K/mcL LAB HEMETOLOGY METHOD 09/30/2024 11:30 AM [facility] Eosinophils Absolute 0.18 0.00 - 0.50 K/mcL LAB HEMETOLOGY METHOD 09/30/2024 11:30 AM [facility] Basophils Absolute 0.04 0.00 - 0.20 K/mcL LAB HEMETOLOGY METHOD 09/30/2024 11:30 AM [facility] Immature Granulocytes Absolute 0.04(H) 0.00 - 0.03 K/mcL LAB HEMETOLOGY METHOD 09/30/2024 11:30 AM EST [facility] Blood Venous blood specimen / Unknown Venipuncture / Unknown 09/30/2024 10:13 AM EST 09/30/2024 11:04 AM EST us Kirk Randle MD LAB BLOOD ORDERABLES Final Resul t [facility] [address] [place] [address], [place] [phone] * Thyroid stimulating hormone (09/30/2024 10:13 AM EST) TSH 3.07 0.40 - 4.00 mcIU/mL LAB CHEMISTRY METHOD 09/30/2024 12:21 PM EST [facility] Blood Venous blood specimen / Unknown Venipuncture / Unknown 09/30/2024 10:13 AM EST 09/30/2024 11:01 AM EST us Kirk Randle MD LAB BLOOD ORDERABLES Final Resul t Performing Organization Address City/[facility]/ZIP Co de Phone Number [facility] [address] [place] [address], [place] [phone] * (ABNORMAL) Comprehensive metabolic panel (09/30/2024 10:13 AM EST) Sodium 140 133 - 145 mmol/L LAB CHEMISTRY METHOD 09/30/2024 1:14 PM [facility] Potassium 4.2 3.5 - 5.5 mmol/L LAB CHEMISTRY METHOD 09/30/2024 1:14 PM [facility] Chloride 106 96 - 110 mmol/L LAB CHEMISTRY METHOD 09/30/2024 1:14 PM [facility] CO2 27 21 - 32 mmol/L LAB CHEMISTRY METHOD 09/30/2024 1:14 PM [facility] Anion Gap 7 3 - 11 LAB CHEMISTRY METHOD 09/30/2024 1:14 PM [facility] Glucose 92 70 - 100 mg/dL LAB CHEMISTRY METHOD 09/30/2024 1:14 PM [facility] BUN 27(H) 5 - 25 mg/dL LAB CHEMISTRY METHOD 09/30/2024 1:14 PM [facility] Creatinine 1.23 0.70 - 1.30 mg/dL LAB CHEMISTRY METHOD 09/30/2024 1:14 PM [facility] eGFR 59(L) >=60 mL/min/1. 73m2 LAB CHEMISTRY METHOD 09/30/2024 1:14 PM [facility] Comment:Calculation based on the??Chronic Kidney Disease Epidemiology Collaboration (CKD-EPI) equation refit??without adjustment for race. BUN/Creatinine Ratio 22.0 LAB CHEMISTRY METHOD 09/30/2024 1:14 PM [facility] Calcium 9.9 8.5 - 10.5 mg/dL LAB CHEMISTRY METHOD 09/30/2024 1:14 PM [facility] AST (SGOT) 42 10 - 42 unit/L LAB CHEMISTRY METHOD 09/30/2024 1:14 PM [facility] ALT (SGPT) 35 10 - 60 unit/L LAB CHEMISTRY METHOD 09/30/2024 1:14 PM [facility] Alkaline Phosphatase 97 42 - 121 unit/L LAB CHEMISTRY METHOD 09/30/2024 1:14 PM [facility] Total Protein 7.1 6.0 - 8.0 g/dL LAB CHEMISTRY METHOD 09/30/2024 1:14 PM [facility] Albumin 4.0 3.2 - 5.0 g/dL LAB CHEMISTRY METHOD 09/30/2024 1:14 PM [facility] Total Bilirubin 1.2 0.0 - 1.4 mg/dL LAB CHEMISTRY METHOD 09/30/2024 1:14 PM [facility] Blood Venous blood specimen / Unknown Venipuncture / Unknown 09/30/2024 10:13 AM EST 09/30/2024 11:01 AM EST us Kirk Randle MD LAB BLOOD ORDERABLES Final Resul t [facility] [address] [place] [address], [place] [phone] from Last 3 Months Insurance [employer] Advance Directives Documents on File Type Date Recorded Patient Lisw Expl anation Health Care Decision (hx) 07/09/2023 [...] (hx) 03/28/2021 AD CRAFT DIRECTIVE Care Teams Chair Mechanic Relationship Specialty Start Date End Date Kirk Randle MD [address] [address] PCP - General Internal Medicine 07/12/20
--- OUTSIDE RECORDS SUMMARY | 2024-11-10 11:06 | XMS_ITS | Encounter Summary ---
Author Organization [facility] Address [address] [place] [address] Care Team Providers Care Seismographer Name Role Phone Ced Victoria MD Unavailable [phone] Virgie Trivedi NP Unavailable [phone] Kirk Randle MD Primary Care Provider [phone] Alana Celaya NP Unavailable [phone] Encounter Details Date Type Department Care Team Description 09/05/2021 Telephone Internal Medicine - [address], [address] [place], [place] [phone] Kirk Randle MD [address] [place], [place] [id number] Social History Tobacco Use Types Packs/Day Years [...] on filedocumented in this encounter Care Teams Seismographer Relationship Specialty Start Date End Date Kirk Randle MD [address] [place] [address] [address] [place] [address] PCP - General Internal Medicine 06/05/21 Ced Victoria MD [address] [place] [address] [address] [place] [address] Studio Assistant Cardiovascular Disease 04/05/21 Virgie Trivedi NP [address] [place] [address] [address] [place] [address] Nurse Practitioner Cardiology 04/05/21 Alana Celaya NP [address] [place] [address] [facility] [place] [address] Nurse Practitioner Cardiology 07/17/23 documented as of this encounter
--- OUTSIDE RECORDS SUMMARY | 2024-11-10 11:06 | XMS_ITS | Encounter Summary ---
Author Organization [facility] Address [address] [place] [address] Care Team Providers Care Charger Operator Helper Name Role Phone Ced Victoria MD Unavailable [phone] Virgie Trivedi NP Unavailable [phone] Kirk Randle MD Primary Care Provider [phone] Alana Celaya NP Unavailable [phone] Encounter Details Date Type Department Care Team Description 07/04/2021 Wagon Washer Report Medical Records [address] [place] [address] Abstract, Provider Social History Tobacco Use Types [...] on filedocumented in this encounter Care Teams Charger Operator Helper Relationship Specialty Start Date End Date Kirk Randle MD [address] [place] [address] [address] [place] [address] PCP - General Internal Medicine 06/05/21 Ced Victoria MD [address] [place] [address] [address] [place] [address] Manager Programming Cardiovascular Disease 04/05/21 Virgie Trivedi NP [address] [place] [address] [address] [place] [address] Nurse Practitioner Cardiology 04/05/21 Alana Celaya NP [address] [place] [address] [facility] [place] [address] Nurse Practitioner Cardiology 07/17/23 documented as of this encounter
--- OUTSIDE RECORDS SUMMARY | 2024-11-10 11:06 | XMS_ITS | Encounter Summary ---
Author Organization [facility] Address [address] [place] [address] Care Team Providers Care Window Air Conditioner Installer Name Role Phone Ced Victoria MD Unavailable [phone] Virgie Trivedi NP Unavailable [phone] Kirk Randle MD Primary Care Provider [phone] Alana Celaya NP Unavailable [phone] Encounter Details Date Type Department Care Team Description 06/19/2021 Marine Insulator Report Medical Records [address] [place] [id number] [place] [address] Social History Tobacco Use Types Packs/Day Years [...] on filedocumented in this encounter Care Teams Window Air Conditioner Installer Relationship Specialty Start Date End Date Kirk Randle MD [address] [place] [address] [address]IVE [address] [place] [address] PCP - General Internal Medicine 06/05/21 Ced Victoria MD [address] [place] [address] [address] [place] [address] Salmon Troll Fisher Cardiovascular Disease 04/05/21 Virgie Trivedi NP [address] [place] [address] [address] [place] [address] Nurse Practitioner Cardiology 04/05/21 Alana Celaya NP [address] [place] [address] [facility] [place] [place] [address] Nurse Practitioner Cardiology 07/17/23 documented as of this encounter
--- OUTSIDE RECORDS SUMMARY | 2024-11-10 11:06 | XMS_ITS | Encounter Summary ---
Author Organization [facility] Address [address] [place] [address] Care Team Providers Care Tube Test Technician Name Role Phone Ced Victoria MD Unavailable [phone] Virgie Trivedi NP Unavailable [phone] Kirk Randle MD Primary Care Provider [phone] Alana Celaya NP Unavailable [phone] Encounter Details Date Type Department Care Team Description 09/11/2021 Electrical Prospecting Observer Report Medical Records [address] [place] [id number] [place] [address] Social History Tobacco Use Types Packs/Day Years [...] on filedocumented in this encounter Care Teams Tube Test Technician Relationship Specialty Start Date End Date Kirk Randle MD [address] [place] [address] [address] [place] [address] PCP - General Internal Medicine 06/05/21 Ced Victoria MD [address] [place] [address] [address] [place] [address] Team Member Cardiovascular Disease 04/05/21 Virgie Trivedi NP [address] [place] [address] [address] [place], [place] [phone] Nurse Practitioner Cardiology 04/05/21 Alana Celaya NP [address] [place] [address] [facility] [place] [address] Nurse Practitioner Cardiology 07/17/23 documented as of this encounter
--- OUTSIDE RECORDS SUMMARY | 2024-11-10 11:06 | XMS_ITS | Encounter Summary ---
Author Organization [facility] Address [address] [place] [address] Care Team Providers Care Surgical Corsetier Name Role Phone Octavio Gross MD Primary Care Provider Unavaila Kathie Cordova PA-C Primary Care Provider + Kirk Randle MD Primary Care Provider [phone] Ced Victoria MD Unavailable [phone] Virgie Trivedi NP Unavailable [phone] Kirk Randle MD Primary Care Provider [phone] Alana Celaya NP Unavailable [phone] Encounter Details Date Type Department Care Team Description 09/17/2018 Release of Information Medical Records [address] [place] [id number] Abstract, Provider Social History Tobacco Use Types [...] on filedocumented in this encounter Care Teams Surgical Corsetier Relationship Specialty Start Date End Date Octavio Gross MD PCP - General Internal Medicine 05/19/18 02/22/20 Kathie Le PA-C PCP - General Internal Medicine 02/23/20 07/11/20 Kirk Randle MD PCP - General Internal Medicine 07/12/20 06/04/21 Kirk Randle MD PCP - General Internal Medicine 06/05/21 Ced Victoria MD [address] [place] [address] [address] [place], [place] [phone] Outbound Telemarketing Representative Cardiovascular Disease 04/05/21 Virgie Trivedi NP [address] [place] [address] [address] [place], [place] [phone] Nurse Practitioner Cardiology 04/05/21 Alana Celaya NP [address] [place] [address] [facility] [place], [place] [phone] Nurse Practitioner Cardiology 07/17/23 documented as of this encounter
--- OUTSIDE RECORDS SUMMARY | 2024-11-10 11:06 | XMS_ITS | Encounter Summary ---
Author Organization [facility] Address [address] [place] [address] Care Team Providers Care Crane Hooker Name Role Phone Ced Victoria MD Unavailable [phone] Virgie Trivedi NP Unavailable [phone] Kirk Randle MD Primary Care Provider [phone] Alana Celaya NP Unavailable [phone] Reason for Visit * Reason Onset Date Comments VNA Call 08/24/2021 Encounter Details Date Type Department Care Team Description 08/24/2021 Telephone Internal Medicine - [address] [place], [place] [address] Kirk Randle MD [address] [place] [address] VNA Call Social History Tobacco Use Types [...] Notes * Telephone Encounter - Judi Truong Rn - 08/24/2021 3:46 PM EST FYI, please read below. * Telephone Encounter - Paris Beth - 08/24/2021 3:42 PM EST [facility]NA CALL Which [facility]NA office is calling? [facility] Full name of caller: Debora 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 A Physical Therapist Is the caller at the patients home?: NO Reason for call: Discharging from P/T services due to pic line being put in temporarily, at a standstill due to wounds. Continuing with skilling nursing. Does caller need an urgent call back? NO Was CONTACT Telephone # obtained above?: YES Fax #: documented in this encounter Plan of Treatment Not on file documented as of this encounter Visit Diagnoses Not on filedocumented in this encounter Care Teams Crane Hooker Relationship Specialty Start Date End Date Kirk Randle MD [address] [place] [address] [place] [address] PCP - General Internal Medicine 06/05/21 Ced Victoria MD [address] [place] [address] [place] [address] Operation Agent Cardiovascular Disease 04/05/21 Virgie Trivedi NP [address] [place] [address] [place] [address] Nurse Practitioner Cardiology 04/05/21 Alana Celaya NP [address] [place] [address] [facility] [place] [address] Nurse Practitioner Cardiology 07/17/23 documented as of this encounter
--- OUTSIDE RECORDS SUMMARY | 2024-11-10 11:06 | XMS_ITS | Encounter Summary ---
Author Organization [facility] Address [address] [place] [address] Care Team Providers Care Proposal Review Analyst Name Role Phone Ced Victoria MD Unavailable [phone] Virgie Trivedi NP Unavailable [phone] Kirk Randle MD Primary Care Provider [phone] Alana Celaya NP Unavailable [phone] Encounter Details Date Type Department Care Team Description 09/07/2021 Hospital Medical Records [address] [place] [address] [facility] Social History Tobacco Use Types Packs/Day [...] on filedocumented in this encounter Care Teams Proposal Review Analyst Relationship Specialty Start Date End Date Kirk Randle MD [address] [place] [address] [address] [place] [address] PCP - General Internal Medicine 06/05/21 Ced Victoria MD [address] [place] [address] [address] [place] [address] Stonecutter Hand Cardiovascular Disease 04/05/21 Virgie Trivedi NP [address] [place] [address] [address] [place] [address] Nurse Practitioner Cardiology 04/05/21 Alana Celaya NP [address] [place] [address] [facility] [place] [address] Nurse Practitioner Cardiology 07/17/23 documented as of this encounter
--- OUTSIDE RECORDS SUMMARY | 2024-11-10 11:06 | XMS_ITS | Encounter Summary ---
Author Organization [facility] Address [address] [place] [address] Care Team Providers Care Band And Cuff Cutter Name Role Phone Octavio Gross MD Primary Care Provider Unavaila Kathie Cordova PA-C Primary Care Provider + Kirk Randle MD Primary Care Provider [phone] Ced Victoria MD Unavailable [phone] Virgie Trivedi NP Unavailable [phone] Kirk Randle MD Primary Care Provider [phone] Alana Celaya NP Unavailable [phone] Encounter Details Date Type Department Care Team Description 10/13/2018 Hospital Medical Records [address] [place] [id number] [place] [address] Social History Tobacco Use Types Packs/Day Years [...] on filedocumented in this encounter Care Teams Band And Cuff Cutter Relationship Specialty Start Date End Date Octavio Gross MD PCP - General Internal Medicine 05/19/18 02/22/20 Kathie Le PA-C PCP - General Internal Medicine 02/23/20 07/11/20 Kirk Randle MD PCP - General Internal Medicine 07/12/20 06/04/21 Kirk Randle MD PCP - General Internal Medicine 06/05/21 Ced Victoria MD [address] [place] [address] [address] [place] [address] Petroleum Analyst Cardiovascular Disease 04/05/21 Virgie Trivedi NP [address] [place] [address] [address] [place], [place] [id number] Nurse Practitioner Cardiology 04/05/21 Alana Celaya NP [address] [place] [address] Dr [facility] [place], [place] [id number] Nurse Practitioner Cardiology 07/17/23 documented as of this encounter
--- OUTSIDE RECORDS SUMMARY | 2024-11-10 11:06 | XMS_ITS | Encounter Summary ---
Author Organization [facility] Address [address] [place] [address] Care Team Providers Care Cement Tester Assistant Name Role Phone Joseph Gross MD Primary Care Provider Unavaila Kathie Cordova PA-C Primary Care Provider + Kirk Randle MD Primary Care Provider [phone] Ced Victoria MD Unavailable [phone] Virgie Trivedi NP Unavailable [phone] Kirk Randle MD Primary Care Provider [phone] Alana Celaya NP Unavailable Reason for Visit * Reason Onset Date Comments Brick Dropper Feedback 07/18/2018 Dr Boy Romero Encounter Details Date Type Department Care Team Description 07/18/2018 Telephone Internal Medicine - [address], [address] [place] [address] Joseph Gross MD Brick Dropper Feedback (Dr Brunson Instrjames) Social History Tobacco [...] Rosenda Misael - 07/18/2018 12:24 PM EST [facility] Trace #: [id number] Subscriber: VLADIMIR FLYNN Submitter : JOSEPH GROSS Submitter Type: Provider : 1940 Referral (#[id number]) Specialty Care Review Type: Initial Certification Status : Certified in total Service Type : Medical Care Place Of Service : Office Visits : 6 Service Date : 07/18/2018-07/18/2019 Service Providers Provider Name ID Provider Type DUTCH CAZARES NPI : [id number] Service Provider * Telephone Encounter - Carolina Martinez - 07/18/2018 11:21 AM EST What insurance does the patient have today? [facility] Effective 06/09/09: BS will not retro referral [...] insurance must be obtained and registered in [facility] or their referral can not be [...] this specialty: Patient saw Dr Gross at [facility] for the problem and was [...] Is this visit:Follow Up Address of Specialist: [address] [place] [address], [address], [facility] [address] Phone # of Specialist: [phone] Fax #: (if applicable): [phone] Does patient have an appointment scheduled?: YES Date of appointment- (including a retro-request): 08/05/18 @ 9:45am Is this appointment related to: Not MVA, WC or Surgery related documented in this encounter Plan of Treatment Not on file documented as of this encounter Visit Diagnoses Not on filedocumented in this encounter Care Teams Cement Tester Assistant Relationship Specialty Start Date End Date Joseph Gross MD PCP - General Internal Medicine 05/19/18 02/22/20 Kathie Le PA-C PCP - General Internal Medicine 02/23/20 07/11/20 Kirk Randle MD PCP - General Internal Medicine 07/12/20 06/04/21 Kirk Randle MD PCP - General Internal Medicine 06/05/21 Ced Victoria MD [address] [place] [address] [address] [place] [address] Mechanical Reliability Engineer Cardiovascular Disease 04/05/21 Virgie Trivedi NP [address] [place] [address] [address] [place] [address] Nurse Practitioner Cardiology 04/05/21 Alana Celaya NP [address] [place] [address] [facility] [place] [address] Nurse Practitioner Cardiology 07/17/23 documented as of this encounter
--- OUTSIDE RECORDS SUMMARY | 2024-11-10 11:06 | XMS_ITS | Encounter Summary ---
Author Organization [facility] Address [address] [place] [address] Care Team Providers Care Organic Lab Worker Name Role Phone Ced Victoria MD Unavailable [phone] Virgie Trivedi NP Unavailable [phone] Kirk Randle MD Primary Care Provider [phone] Alana Celaya NP Unavailable [phone] Reason for Visit * Reason Onset Date Comments VNA Call 06/28/2021 Encounter Details Date Type Department Care Team Description 06/28/2021 Telephone Internal Medicine - [address], [address] [place], [place] [phone] Kirk Randle MD [address] [place], [place] [phone] VNA Call Social History Tobacco Use Types [...] Telephone Encounter - Judi Truong RN - 06/28/2021 4:09 PM EDT FYI, verbal orders given. * Telephone Encounter - Kaye Blevins - 06/28/2021 3:35 PM EDT VNA CALL Which [facility] office is calling? [facility] Full name of caller: Debora 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 A Physical Therapist Is the caller at the patients home?: NO Reason for call: Patient needs 4 more visist due to a Bypas surgery to open some vein for physical therapy, for balance and endurance. Verbal ok Does caller need an urgent call back? NO Was CONTACT Telephone # obtained above?: YES Fax #: documented in this encounter Plan of Treatment Not on file documented as of this encounter Visit Diagnoses Not on filedocumented in this encounter Care Teams Organic Lab Worker Relationship Specialty Start Date End Date Kirk Randle MD [address] [place] [address] [place] [address] PCP - General Internal Medicine 06/05/21 Ced Victoria MD [address] [place] [address] [place] [address] In Flight Refueling Manager Cardiovascular Disease 04/05/21 Virgie Trivedi NP [address] [place] [address] [address] [place] [address] Nurse Practitioner Cardiology 04/05/21 Alana Celaya NP [address] [place] [address] [facility] [place] [address] Nurse Practitioner Cardiology 07/17/23 documented as of this encounter
--- OUTSIDE RECORDS SUMMARY | 2024-11-10 11:06 | XMS_ITS | Encounter Summary ---
Author Organization [facility] Address [address] [place] [address] Care Team Providers Care Coal Trimmer Machine Operator Name Role Phone Ced Victoria MD Unavailable [phone] Virgie Trivedi NP Unavailable [phone] Kirk Randle MD Primary Care Provider [phone] Alana Celaya NP Unavailable [phone] Reason for Referral * EXTERNAL (Routine) - Authorized/Booked Specialty Diagnoses / Procedures Referred By Contmigel t Referred To Contact Infectious Disease Procedures REFERRAL TO INFECTIOUS DISEASE Kirk Randle MD [address] [place] [address] Ileana Renee MD [address] [address] Referral ID Status Reason Start Date Expiration Date V isits Requested Visits Authorized [id number] Authorized/B ooked 10/16/2022 01/16/2023 1 1 Reason for Visit * Reason Onset Date Comments REFERRAL 10/10/2022 Hearing Instrument Specialist Feedback 10/10/2022 Infectious disea se referral Encounter Details Date Type Department Care Team Description 10/10/2022 Telephone Internal Medicine - [address], [address] [place] [address] Kirk Randle MD [address] [place], [place] [phone] REFERRAL; Hearing Instrument Specialist Feedback (Infectious disease referral) Social History Tobacco Use Types Packs/Day Years [...] encounter Miscellaneous Notes * Telephone Encounter - Kathie Le PA-C - 10/16/2022 5:00 PM EST Referral external infectious disease specialist [place] nicholas for history of osteomyelitis right heel. Thank you. * Telephone Encounter - Marjan Pedraza - 10/16/2022 10:01 AM EST Kathie I called and spoke with patient he has an appt with Infectious disease next Saturday10/22/22.Called patient to clarify what viral infection meant per patient in 2020 he had an accident where he fell on his rug which lead him to have serious infection. I printed out [facility] hospital report which stated Discharge diagnosis Osteomyelitis. I will put the report in your in basket to review. Patientjust needs a new referral to continue his follow ups with the provider Ileana Renee. * Telephone Encounter - Kathie Le PA-C - 10/11/2022 5:08 PM EST Please specify what viral infection means? * Telephone Encounter - Melinda Perez M.A. - 10/11/2022 2:25 PM EST Provider out until 10/22 please advise * Telephone Encounter - Parris James - 10/10/2022 2:14 PM EST Please review this patients new referral request. The referral has been pended. Please complete thefollowing: If approved> sign order If denied>please give instructions and route to your practice nursing pool. Practice nurse should inform referrals and the patient if denied. * Telephone Encounter - Pariscammy Michaelnell - 10/10/2022 9:18 AM EST What insurance does the patient have today? [facility] Effective 06/09/09: BS will not retro referral [...] insurance must be obtained and registered in [facility] or their referral can not be processed. Is this a retro request? NO. If yes for what date of service do you need the retro referral? N/A Who is calling to request this referral? patient If the caller is not the patient, what is their name? N/A Ask the patient WHO referred them to this specialty: Patient self referred FIRST and LAST NAME of SPECIALIST PATIENT is seeing: Ileana Renee What specialty is this? Infectious Disease DIAGNOSIS Patient is being seen for (Not a body part or a procedure): viral infection Have you seen this SPECIALIST for this PROBLEM/DX before?YES If YES, when: Have you checked REVIEW or the APPT DESK to see if this referral has already been done or has visits left? YES Is this visit:Follow Up Address of Specialist:[address] [place] [address] Phone # of Specialist:[phone] Fax #: (if applicable): Does patient have an appointment scheduled?: YES Date of appointment- (including a retro-request): 10/16/22 Is this appointment related to: Not MVA, WC or Surgery related documented in this encounter Plan of Treatment Not on file documented as of this encounter Visit Diagnoses Not on filedocumented in this encounter Care Teams Coal Trimmer Machine Operator Relationship Specialty Start Date End Date Kirk Randle MD [address] [place] [address] [address] [place] [address] PCP - General Internal Medicine 06/05/21 Ced Victoria MD [address] [place] [address] [address] [place] [address] Dividend Clerk Cardiovascular Disease 04/05/21 Virgie Trivedi NP [address] [place] [address] [address] [place] [address] Nurse Practitioner Cardiology 04/05/21 Alana Celaya NP [address] [place] [address] [facility] [place] [address] Nurse Practitioner Cardiology 07/17/23 documented as of this encounter
--- OUTSIDE RECORDS SUMMARY | 2024-11-10 11:06 | XMS_ITS | Encounter Summary ---
Author Organization [facility] Address [address] [place] [address] Care Team Providers Care Gin Pole Operator Name Role Phone Ced Victoria MD Unavailable [phone] Virgie Trivedi NP Unavailable [phone] Kirk Randle MD Primary Care Provider [phone] Alana Celaya NP Unavailable [phone] Encounter Details Date Type Department Care Team Description 08/16/2021 Radio Engineer Report Medical Records [address] [place] [address] Ileana Renee MD Social History Tobacco Use [...] on filedocumented in this encounter Care Teams Gin Pole Operator Relationship Specialty Start Date End Date Kirk Randle MD [address] [place] [address] [address]IVE [address] [place] [address] PCP - General Internal Medicine 06/05/21 Ced Victoria MD [address] [place] [address] [address] [place] [address] Conveyor Belt Repairer Cardiovascular Disease 04/05/21 Virgie Trivedi NP [address] [place] [address] [address] [place] [address] Nurse Practitioner Cardiology 04/05/21 Alnaa Celaya NP [address] [place] [address] [facility] [place] [address] Nurse Practitioner Cardiology 07/17/23 documented as of this encounter
--- OUTSIDE RECORDS SUMMARY | 2024-11-10 11:06 | XMS_ITS | Encounter Summary ---
Author Organization [facility] Address [address] [place] [address] Care Team Providers Care Air Launch Weapons Technician Name Role Phone Ced Victoria MD Unavailable [phone] Virgie Trivedi NP Unavailable [phone] Kirk Randle MD Primary Care Provider [phone] Alana Celaya NP Unavailable [phone] Reason for Visit * Reason Onset Date Comments DME Request 08/21/2021 Encounter Details Date Type Department Care Team Description 08/21/2021 Telephone Internal Medicine - [address], [address] [place] [address] Kirk Randle MD [address] [place] [address] DME Request Social History Tobacco Use Types Packs/Day [...] encounter Miscellaneous Notes * Telephone Encounter - Lisa Davison - 08/28/2021 11:29 AM EST DME pended * Telephone Encounter - Paris Beth - 08/21/2021 4:29 PM EST Name of Product: [id number] ALGINATE OR OTHER FIBER GELLING DRESSING, WOUND COVER, STERILE, PAD SIZE MORE THAN 16 SQ. IN. BUT LESS THAN OR EQUAL TO 48 SQ. IN., EACH DRESSING. QTY 2 FREQUENCY MONTHLY DURATION 3 MONTHS Specific information about product SEE ABOVE # Needed 2 Reason patient is asking for this supply? I33.O, L89.610, L89.620, M19.90 Have you received this supply before? If yes , when?: no Have you discussed the need for this supply with a provider at a recent visit? NO If yes, with who and when? N/A When completed: Fax to other office/MD at fax # [phone] Have you told the patient it will take 7-10 days for completion of this request? NO documented in this encounter Plan of Treatment Not on file documented as of this encounter Procedures Procedure Name Priority Date/Time Associated Diagnosis Comments DME WOUND DRESSING [facility] Routine 08/28/2021 11:33 AM EST Pressure ulcer, heel, right, unstageable (HCC) documented in this encounter Visit Diagnoses Diagnosis Pressure ulcer, heel, right, unstageable (HCC)- Primary Pressure ulcer, heel documented in this encounter Care Teams Air Launch Weapons Technician Relationship Specialty Start Date End Date Kirk Randle MD [address] [place] [address] [address] [place] [address] PCP - General Internal Medicine 06/05/21 Ced Victoria MD [address] [place] [address] [address] [place] [address] Access Tech Cardiovascular Disease 04/05/21 Virgie Trivedi NP [address] [place] [address] [address] [place] [address] Nurse Practitioner Cardiology 04/05/21 Alana Celaya NP [address] [place] [address] Dr [facility] [place] [address] Nurse Practitioner Cardiology 07/17/23 documented as of this encounter
--- OUTSIDE RECORDS SUMMARY | 2024-11-10 11:07 | XMS_ITS | Encounter Summary ---
Author Organization [facility] Address [address] [place] [address] Care Team Providers Care Cement And Concrete Plant Worker Name Role Phone Minh Butts MD Primary Care Provider UnavailOctavio Rodrigues MD Primary Care Provider Unavaila Kathie Cordova PA-C Primary Care Provider + Kirk Randle MD Primary Care Provider [phone] Octavio Gross MD Primary Care Provider Unavaila Ced Rosen MD Unavailable [phone] Vigrie Trivedi DIAGNOSTIC ASSISTANT Unavailable [phone] Kirk Randle MD Primary Care Provider [phone] Alana Celaya DIAGNOSTIC ASSISTANT Unavailable [phone] Encounter Details Date Type Department Care Team Description 1940 Steel Wool Machine Operator Report Medical Records [address] [place] [address] [facility] Social History Tobacco Use Types Packs/Day Years Used Date Smoking Tobacco: Never Assessed Physical Activity Answer Date Recorded On average, [...] filedocumented in this encounter Care Teams Cement And Concrete Plant Worker Relationship Specialty Start Date End Date Minh Butts MD PCP - General 05/23/11 04/20/13 Octavio Gross MD PCP - General Internal Medicine 05/19/18 02/22/20 Kathie Le PA-C PCP - General Internal Medicine 02/23/20 07/11/20 Kirk Randle MD PCP - General Internal Medicine 07/12/20 06/04/21 Ocatvio Gross MD PCP - General 04/21/13 05/18/18 Kirk Randle MD PCP - General Internal Medicine 06/05/21 Ced Victoria MD [address] [place] [address] [address] [place], [place] [phone] Pan Devulcanizer Helper Cardiovascular Disease 04/05/21 Virgie Trivedi NP [address] [place] [address] [address]IVE [address] [place] [address] Nurse Practitioner Cardiology 04/05/21 Alana Celaya NP [address] [place] [address] [facility] [place] [address] Nurse Practitioner Cardiology 07/17/23 documented as of this encounter
--- OUTSIDE RECORDS SUMMARY | 2024-11-10 11:07 | XMS_ITS | Encounter Summary ---
Author Organization [facility] Address [address] [place] [address] Care Team Providers Care Jewel Oliving Machine Operator Name Role Phone Ced Victoria MD Unavailable [phone] Virgie Trivedi NP Unavailable [phone] Kirk Randle MD Primary Care Provider [phone] Alana Celaya NP Unavailable [phone] Encounter Details Date Type Department Care Team Description 11/18/2021 Home Health Certification Medical Records [address] [place] [address] Social History Tobacco Use Types Packs/Day Years [...] on filedocumented in this encounter Care Teams Jewel Oliving Machine Operator Relationship Specialty Start Date End Date Kirk Randle MD [address] [place] [address] [address] [place] [address] PCP - General Internal Medicine 06/05/21 Ced Victoria MD [address] [place] [address] [address] [place] [address] Filler Operator Cardiovascular Disease 04/05/21 Virgie Trivedi NP [address] [place] [address] [address] [place] [address] Nurse Practitioner Cardiology 04/05/21 Alana Celaya NP [address] [place] [address] [facility] [place] [address] Nurse Practitioner Cardiology 07/17/23 documented as of this encounter
--- OUTSIDE RECORDS SUMMARY | 2024-11-10 11:07 | XMS_ITS | Encounter Summary ---
Author Organization [facility] Address [address] [place] [address] Care Team Providers Care Linen Room Houseperson Name Role Phone Ced Victoria MD Unavailable [phone] Virgie Trivedi NP Unavailable [phone] Kirk Randle MD Primary Care Provider [phone] Alana Celaya NP Unavailable [phone] Reason for Visit * Reason Comments E-prescribe Rx Request Encounter Details Date Type Department Care Team Description 12/06/2021 Refill Cardio [facility] [address] [place] [address] [place] [phone] Ced Victoria MD [address] [place] [address] [address] [place] [address] E-prescribe Rx Request Social History Tobacco Use [...] encounter Miscellaneous Notes * Telephone Encounter - Virgie Trivedi NP - 04/02/2022 4:10 PM EDT Already done. * Telephone Encounter - Ced Victoria MD - 12/07/2021 1:20 PM EDT Done * Telephone Encounter - Barb Veras C.M.A. - 12/06/2021 2:44 PM EDT I just received a prescription request from [facility] for furosemide 20mg I did see the msg your MA sent you this am---will you be prescribing this med? documented in this encounter Plan of Treatment Not on file documented as of this encounter Visit Diagnoses Not on filedocumented in this encounter Care Teams Linen Room Houseperson Relationship Specialty Start Date End Date Kirk Randle MD [address] [place] [address] [address] [place] [address] PCP - General Internal Medicine 06/05/21 Ced Victoria MD [address] [place] [address] [address] [place] [address] Roll Cleaner Cardiovascular Disease 04/05/21 Virgie Trivedi NP [address] [place] [address] [address] [place] [address] Nurse Practitioner Cardiology 04/05/21 Alana Celaya NP [address] [place] [address] [facility] [place] [address] Nurse Practitioner Cardiology 07/17/23 documented as of this encounter
--- OUTSIDE RECORDS SUMMARY | 2024-11-10 11:07 | XMS_ITS | Encounter Summary ---
Author Organization [facility] Address [address] [place] [address] Care Team Providers Care Net Front End Developer Name Role Phone Kathie Le PA-C Primary Care Provider + Kirk Randle MD Primary Care Provider [phone] Ced Victoria MD Unavailable [phone] Virgie Trivedi HEALTHCARE SOCIAL WORKER Unavailable [phone] Kirk Randle MD Primary Care Provider [phone] Alana Celaya HEALTHCARE SOCIAL WORKER Unavailable [phone] Reason for Visit * Reason Onset Date Comments Cash Controller Feedback 03/21/2020 SHALA LONGO NPI : [id number] Encounter Details Date Type Department Care Team Description 03/21/2020 Telephone Internal Medicine - [address], [address] [place] [address] Kathie Le PA-C [address] [place] [phone] Cash Controller Feedback (SHALA LONGO NPI : [id number] ) Social History Tobacco Use Types Packs/Day [...] * Telephone Encounter - Ara Chua - 03/21/2020 11:36 AM EDT [facility]CS Review Request Submission Status [ Save Response to Batch ] Request: [id number] [facility]ly [facility] Trace #: [id number] Subscriber: VLADIMIR FLYNN Submitter : KIRK RANDLE Submitter Type: Provider : 1940 Referral (#[id number]) Specialty Care Review Type: Initial Certification Status : Certified in total Service Type : Medical Care Place Of Service : Other Place of Service Visits : 6 Service Date : 03/21/2020-03/21/2021 Service Providers Provider Name ID Provider Type SHALA LONGO NPI : [id number] Service Provider * Telephone Encounter - Rosalba Hubbard - 03/21/2020 11:05 AM EDT What insurance does the patient have today? [facility] Effective 06/09/09: BS will not retro [...] Who is calling to request this referral? [facility] If the caller is not the patient, what is their name? Ginger Ask the patient WHO referred them to this specialty: Patient self referred FIRST and LAST NAME of SPECIALIST PATIENT is seeing: Dr. Shala [facility] Visits 8 What specialty is this? Ophthmology DIAGNOSIS Patient is being seen for (Not a body part or a procedure): Annual eye exam Have you seen this SPECIALIST for this PROBLEM/DX before?NO If YES, when: Have you checked REVIEW or the APPT DESK to see if this referral has already been done or has visits left? YES Is this visit:Initial Visit Address of Specialist:[address] [place] [address] Phone # of Specialist:[phone] Fax #: (if applicable):[phone] Does patient have an appointment scheduled?: YES Date of appointment- (including a retro-request): 04/01/2020 Is this appointment related to: Not MVA, WC or Surgery related documented in this encounter Plan of Treatment Not on file documented as of this encounter Visit Diagnoses Not on filedocumented in this encounter Care Teams Net Front End Developer Relationship Specialty Start Date End Date Kathie Le PA-C PCP - General Internal Medicine 02/23/20 07/11/20 Kirk Randle MD PCP - General Internal Medicine 07/12/20 06/04/21 Kirk Randle MD PCP - General Internal Medicine 06/05/21 Ced Victoria MD [address] [place] [address] [address] [place] [address] Human Resources Designate Cardiovascular Disease 04/05/21 Virgie Trivedi NP [address] [place] [address] [address] [place] [address] Nurse Practitioner Cardiology 04/05/21 Alana Celaya NP [address] [place] [address] [facility] [place] [address] Nurse Practitioner Cardiology 07/17/23 documented as of this encounter
--- OUTSIDE RECORDS SUMMARY | 2024-11-10 11:07 | XMS_ITS | Encounter Summary ---
Author Organization [facility] Address [address] [place] [address] Care Team Providers Care Implant Polisher Name Role Phone Octavio Gross MD Primary Care Provider Unavaila Kathie Cordova PA-C Primary Care Provider + Kirk Randle MD Primary Care Provider [phone] Ced Victoria MD Unavailable [phone] Virgie Trivedi NP Unavailable [phone] Kirk Randle MD Primary Care Provider [phone] Alana Celaya NP Unavailable [phone] Reason for Visit * Reason Comments E-prescribe Rx Request Encounter Details Date Type Department Care Team Description 10/08/2019 [facility] Internal Medicine - [address], [address] [place] [address] Octavio Gross MD E-prescribe Rx Request Social [...] * Telephone Encounter - Edita Davison - 10/08/2019 2:01 PM EST No results found for: INR Lab Results Component Value Date NA 140 06/16/2019 K 4.1 06/16/2019 CO2 28 06/16/2019 CL 105 06/16/2019 BUN 19 06/16/2019 CREAT 1.07 06/16/2019 GLU 78 06/16/2019 CA 9.3 06/16/2019 GFR > 60 06/16/2019 * Telephone Encounter - Kamla Serrato - 10/08/2019 1:39 PM EST Patient would like script to be: E-PRESCRIBED/FAXED TO PHARMACY WHEN WAS THE PATIENT'S LAST APPOINTMENT IN ADULT MEDICINE? 10/05/2019 WHEN WAS THE LAST TIME THE PATIENT SAW THEIR PCP? Same as above Does patient have an upcoming appointment? Yes 02/04/2020 (THE MEDICATION REQUESTED IS ON THE MED LIST ABOVE) All of the medications requested were on the CURRENT MEDS list Did you check the Pharmacy information above?: YES Patient wants: 30 -day supply Is this a mail order prescription request ? NO If the refill is from a FAXED refill request what is the RX # listed on the fax? N/A Patients current insurance carrier is: Payor: [facility] / Plan: [employer] [employer] PREF HMO $10 [place] / Product Type: MEDICARE RISK documented in this encounter Plan of Treatment Not on file documented as of this encounter Visit Diagnoses Not on filedocumented in this encounter Care Teams Implant Polisher Relationship Specialty Start Date End Date Octavio Gross MD PCP - General Internal Medicine 05/19/18 02/22/20 Kathie Le PA-C PCP - General Internal Medicine 02/23/20 07/11/20 Kirk Randle MD PCP - General Internal Medicine 07/12/20 06/04/21 Kirk Randle MD PCP - General Internal Medicine 06/05/21 Ced Victoria MD [address] [place] [address] [address] [place] [address] Driller Machine Cardiovascular Disease 04/05/21 Virgie Trivedi NP [address] [place] [address] [address] [place] [address] Nurse Practitioner Cardiology 04/05/21 Alana Celaya NP [address] [place] [address] Dr [facility] [place] [address] Nurse Practitioner Cardiology 07/17/23 documented as of this encounter
--- OUTSIDE RECORDS SUMMARY | 2024-11-10 11:07 | XMS_ITS | Encounter Summary ---
Author Organization [facility] Address [address] [place] [address] Care Team Providers Care Roller Stainer Name Role Phone Ced Victoria MD Unavailable [phone] Virgie Trivedi NP Unavailable [phone] Kirk Randle MD Primary Care Provider [phone] Alana Celaya NP Unavailable [phone] Encounter Details Date Type Department Care Team Description 11/18/2021 Home Health Certification Medical Records [address] [place] [address] Social History Tobacco Use Types Packs/Day Years [...] on filedocumented in this encounter Care Teams Roller Stainer Relationship Specialty Start Date End Date Kirk Randle MD [address] [place] [address] [address] [place] [address] PCP - General Internal Medicine 06/05/21 Ced Victoria MD [address] [place] [address] [address] [place] [address] Directory Assistance Operator Cardiovascular Disease 04/05/21 Virgie Trivedi NP [address] [place] [address] [address] [place] [address] Nurse Practitioner Cardiology 04/05/21 Alana Celaya NP [address] [place] [address] [facility] [place] [address] Nurse Practitioner Cardiology 07/17/23 documented as of this encounter
--- OUTSIDE RECORDS SUMMARY | 2024-11-10 11:07 | XMS_ITS | Encounter Summary ---
Author Organization [facility] Address [address] [place] [address] Care Team Providers Care Health Care Administrator Name Role Phone Ced Victoria MD Unavailable [phone] Virgie Trivedi NP Unavailable [phone] Kirk Randle MD Primary Care Provider [phone] Alana Celaya NP Unavailable [phone] Reason for Visit * Reason Onset Date Comments VNA Call 05/29/2023 Encounter Details Date Type Department Care Team Description 05/29/2023 Telephone Internal Medicine - [address], [address] [place], [place] [address] Kirk Randle MD [address] [place], [place] [id number] VNA Call Social History Tobacco Use Types [...] FYI from [facility]NA Call to A # [phone], spoke w/ Erlinda. Verbal orders given For his wound, they are doing Calcium AG, dry clean dressing on pat wound. 2x per week unless vascular MD orders otherwise for wound care. Pt has appt w/ vascular on Saturday for further assessment/orders Also FYI pt is not taking his multivitamin or Wentworth 3 supplement * Telephone Encounter - Kristen [...] filedocumented in this encounter Care Teams Health Care Administrator Relationship Specialty Start Date End Date Kirk Randle MD [address] [place] [address] [address] [place] [address] PCP - General Internal Medicine 06/05/21 Ced Victoria MD [address] [place] [address] [address] [place] [address] Dike Supervisor Cardiovascular Disease 04/05/21 Virgie Trivedi NP [address] [place] [address] [address] [place] [address] Nurse Practitioner Cardiology 04/05/21 Alana Celaya NP [address] [place] [address] Dr [facility] [place] [address] Nurse Practitioner Cardiology 07/17/23 documented as of this encounter
--- OUTSIDE RECORDS SUMMARY | 2024-11-10 11:07 | XMS_ITS | Encounter Summary ---
Author Organization [facility] Address [address] [place] [address] Care Team Providers Care Ocean Export Account Manager Name Role Phone Ced Victoria MD Unavailable [phone] Virgie Trivedi NP Unavailable [phone] Kirk Randle MD Primary Care Provider [phone] Alana Celaya NP Unavailable [phone] Encounter Details Date Type Department Care Team Description 03/26/2023 Orders Only Medical Records [address] [place] [address] Kirk Randle MD [address] [place], [place] [id number] Social History Tobacco Use Types Packs/Day Years [...] on filedocumented in this encounter Care Teams Ocean Export Account Manager Relationship Specialty Start Date End Date Kirk Randle MD [address] [place] [address] [address] [place] [address] PCP - General Internal Medicine 06/05/21 Ced Victoria MD [address] [place] [address] [address] [place] [address] Strategy Associate Cardiovascular Disease 04/05/21 Virgie Trivedi NP [address] [place] [address] [address] [place] [address] Nurse Practitioner Cardiology 04/05/21 Alana Celaya NP [address] [place] [address] [facility] [place] [address] Nurse Practitioner Cardiology 07/17/23 documented as of this encounter
--- OUTSIDE RECORDS SUMMARY | 2024-11-10 11:08 | XMS_ITS | Encounter Summary ---
Author Organization [facility] Address [address] [place] [address] Care Team Providers Care Utility Plant Operative Name Role Phone Ced Victoria MD Unavailable [phone] Virgie Trivedi NP Unavailable [phone] Kirk Randle MD Primary Care Provider [phone] Alana Celaya NP Unavailable [phone] Encounter Details Date Type Department Care Team Description 04/29/2023 Orders Only Medical Records [address] [place] [address] Abstract, Provider Social History Tobacco Use Types [...] filedocumented in this encounter Care Teams Utility Plant Operative Relationship Specialty Start Date End Date Kirk Randle MD [address] [place] [address] [address] [place] [address] PCP - General Internal Medicine 06/05/21 Ced Victoria MD [address] [place] [address] [address] [place] [address] Counter Waiter Cardiovascular Disease 04/05/21 Virgie Trivedi NP [address] [place] [address] [address] [place] [address] Nurse Practitioner Cardiology 04/05/21 Alana Celaya NP [address] [place] [address] [facility] [place] [address] Nurse Practitioner Cardiology 07/17/23 documented as of this encounter
--- OUTSIDE RECORDS SUMMARY | 2024-11-10 11:08 | XMS_ITS | Encounter Summary ---
Author Organization [facility] Address [address] [place] [address] Care Team Providers Care Paradichlorobenzene Machine Operator Name Role Phone Octavio Gross MD Primary Care Provider Unavaila Kathie Cordova PA-C Primary Care Provider + Kirk Randle MD Primary Care Provider [phone] Ced Victoria MD Unavailable [phone] Virgie Trivedi NP Unavailable [phone] Kirk Randle MD Primary Care Provider [phone] Alana Celaya NP Unavailable [phone] Encounter Details Date Type Department Care Team Description 06/17/2019 Orders Only Medical Records [address] [place] [address] Abstract, Provider Social History Tobacco Use Types [...] on filedocumented in this encounter Care Teams Paradichlorobenzene Machine Operator Relationship Specialty Start Date End Date Octavio Gross MD PCP - General Internal Medicine 05/19/18 02/22/20 Kathie Le PA-C PCP - General Internal Medicine 02/23/20 07/11/20 Kirk Randle MD PCP - General Internal Medicine 07/12/20 06/04/21 Kirk Randle MD PCP - General Internal Medicine 06/05/21 Cde Victoria MD [address] [place] [address] [address] [place] [address] Director Communications Cardiovascular Disease 04/05/21 Virgie Trivedi NP [address] [place] [address] [address] [place], [place] [address] Nurse Practitioner Cardiology 04/05/21 Alana Celaya NP [address] [place] [address] [facility] [place] [address] Nurse Practitioner Cardiology 07/17/23 documented as of this encounter
--- OUTSIDE RECORDS SUMMARY | 2024-11-10 11:08 | XMS_ITS | Encounter Summary ---
Author Organization [facility] Address [address] [place] [address] Care Team Providers Care Leather Belt Shaper Name Role Phone Octavio Gross MD Primary Care Provider Unavaila Kathie Cordova PA-C Primary Care Provider + Kirk Randle MD Primary Care Provider [phone] Ced Victoria MD Unavailable [phone] Virgie Trivedi NP Unavailable [phone] Kirk Randle MD Primary Care Provider [phone] Alana Celaya NP Unavailable [phone] Encounter Details Date Type Department Care Team Description 06/23/2019 Commissary Superintendent Report Medical Records [address] [place] [address] [facility] Social History Tobacco Use Types [...] on filedocumented in this encounter Care Teams Leather Belt Shaper Relationship Specialty Start Date End Date Octavio Gross MD PCP - General Internal Medicine 05/19/18 02/22/20 Kathie Le PA-C PCP - General Internal Medicine 02/23/20 07/11/20 Kirk Randle MD PCP - General Internal Medicine 07/12/20 06/04/21 Kirk Randle MD PCP - General Internal Medicine 06/05/21 Ced Victoria MD [address] [place] [address] [address] [place], [place] [phone] Quarry Supervisor Dimension Stone Cardiovascular Disease 04/05/21 Virgie Trivedi NP [address] [place] [address] [address] [place], [place] [address] Nurse Practitioner Cardiology 04/05/21 Alana Celaya NP [address] [place] [address] [facility] [place] [address] Nurse Practitioner Cardiology 07/17/23 documented as of this encounter
--- OUTSIDE RECORDS SUMMARY | 2024-11-10 11:08 | XMS_ITS | Encounter Summary ---
Author Organization [facility] Address [address] [place] [address] Care Team Providers Care Community Center Director Name Role Phone Ced Victoria MD Unavailable [phone] Virgie Trivedi NP Unavailable [phone] Kirk Randle MD Primary Care Provider [phone] Alana Celaya NP Unavailable [phone] Encounter Details Date Type Department Care Team Description 11/17/2021 General Expeditor Report Medical Records [address] [place] [address] Social History Tobacco Use Types Packs/Day Years [...] on filedocumented in this encounter Care Teams Community Center Director Relationship Specialty Start Date End Date Kirk Randle MD [address] [place] [address] [address] [place] [address] PCP - General Internal Medicine 06/05/21 Ced Victoria MD [address] [place] [address] [address] [place] [address] What Job Titles Mean Cardiovascular Disease 04/05/21 Virgie Trivedi NP [address] [place] [address] [address] [place] [address] Nurse Practitioner Cardiology 04/05/21 Alana Celaya NP [address] [place] [address] [facility] [place] [address] Nurse Practitioner Cardiology 07/17/23 documented as of this encounter
--- OUTSIDE RECORDS SUMMARY | 2024-11-10 11:08 | XMS_ITS | Encounter Summary ---
Author Organization [facility] Address [address] [place] [address] Care Team Providers Care Photographic Plate Maker Name Role Phone Ced Victoria MD Unavailable [phone] Virgie Trivedi NP Unavailable [phone] Kirk Randle MD Primary Care Provider [phone] Alana Celaya NP Unavailable [phone] Encounter Details Date Type Department Care Team Description 12/01/2021 Orders Only Internal Medicine - [address], [address] [place] [address] Kirk Randle MD [address] [place], [place] [id number] Social History Tobacco Use Types Packs/Day Years [...] on filedocumented in this encounter Care Teams Photographic Plate Maker Relationship Specialty Start Date End Date Kirk Randle MD [address] [place] [address] [address] [place] [address] PCP - General Internal Medicine 06/05/21 Ced Victoria MD [address] [place] [address] [address] [place] [address] Box Turner Cardiovascular Disease 04/05/21 Virgie Trivedi NP [address] [place] [address] [address] [place] [address] Nurse Practitioner Cardiology 04/05/21 Alana Celaya NP [address] [place] [address] [facility] [place] [address] Nurse Practitioner Cardiology 07/17/23 documented as of this encounter
--- OUTSIDE RECORDS SUMMARY | 2024-11-10 11:08 | XMS_ITS | Encounter Summary ---
Author Organization [facility] Address [address] [place] [address] Care Team Providers Care Car Record Clerk Name Role Phone Ced Victoria MD Unavailable [phone] Virgie Trivedi NP Unavailable [phone] Kirk Randle MD Primary Care Provider [phone] Alana Celaya NP Unavailable [phone] Reason for Visit * Reason Onset Date Comments VNA Call 12/01/2021 Encounter Details Date Type Department Care Team Description 12/01/2021 Telephone Pulmonology - [address] [place] [address] Kirk Randle MD [address] [place], [place] [id number] VNA Call Social History Tobacco Use Types [...] Notes * Telephone Encounter - Kristen Barragan R.N. - 12/01/2021 4:41 PM EDT The [facility]NA still wants the BMP drawn. Advised that all providers are gone for the weekend. They will follow up with cardiology after the bloodwork results are done. * Telephone Encounter - Kirk Randle MD - 12/01/2021 4:39 PM EDT To see a provider ,also need to follow-up with a enterprise solutions architect. * Telephone Encounter - Kristen Barragan R.N. - 12/01/2021 3:16 PM EDT PLEASE READ AND ADVISE [facility]NA called to report pt has been having bilateral swelling of the feet. +2 edema noted. No respiratory distress. Currently off Lasix per cardiology They are inquiring if a BMP should be ordered for bloodwork. If you put in the order they will draw it. * Telephone Encounter - Lottie Jacobs - 12/01/2021 1:56 PM EDT VNA is calling requesting a BMP for this patient for his swelling feet documented in this encounter Plan of Treatment Not on file documented as of this encounter Visit Diagnoses Not on filedocumented in this encounter Care Teams Car Record Clerk Relationship Specialty Start Date End Date Kirk Randle MD [address] [place] [address] [place] [address] PCP - General Internal Medicine 06/05/21 Ced Victoria MD [address] [place] [address] [address] [place] [address] Boat Hop Cardiovascular Disease 04/05/21 Virgie Trivedi NP [address] [place] [address] [address] [place] [address] Nurse Practitioner Cardiology 04/05/21 Alana Celaya NP [address] [place] [address] [facility] [place] [address] Nurse Practitioner Cardiology 07/17/23 documented as of this encounter
--- OUTSIDE RECORDS SUMMARY | 2024-11-10 11:08 | XMS_ITS | Encounter Summary ---
Author Organization [facility] Address [address] [place] [address] Care Team Providers Care Rn Mds Name Role Phone Octavio Gross MD Primary Care Provider Unavaila Kathie Cordova PA-C Primary Care Provider + Kirk Randle MD Primary Care Provider [phone] Ced Victoria MD Unavailable [phone] Virgie Trivedi NP Unavailable [phone] Kirk Randle MD Primary Care Provider [phone] Alana Celaya NP Unavailable [phone] Encounter Details Date Type Department Care Team Description 07/09/2019 Tobacco Curer Report Medical Records [address] [place] [address] Abstract, Provider Social History Tobacco Use Types [...] on filedocumented in this encounter Care Teams Rn Mds Relationship Specialty Start Date End Date Octavio Gross MD PCP - General Internal Medicine 05/19/18 02/22/20 Kathie Le PA-C PCP - General Internal Medicine 02/23/20 07/11/20 Kirk Randle MD PCP - General Internal Medicine 07/12/20 06/04/21 Kirk Randle MD PCP - General Internal Medicine 06/05/21 Ced Victoria MD [address] [place] [address] [address] [place] [address] Electric Meter Tester Cardiovascular Disease 04/05/21 Virgie Trivedi NP [address] [place] [address] [address] [place] [address] Nurse Practitioner Cardiology 04/05/21 Alana Celaya NP [address] [place] [address] [facility] [place], [place] [address] Nurse Practitioner Cardiology 07/17/23 documented as of this encounter
--- OUTSIDE RECORDS SUMMARY | 2024-11-10 11:08 | XMS_ITS | Encounter Summary ---
Author Organization [facility] Address [address] [place] [address] Care Team Providers Care Fire Pot Operator Name Role Phone Ced Victoria MD Unavailable [phone] Virgie Trivedi NP Unavailable [phone] Kirk Randle MD Primary Care Provider [phone] Alana Celaya NP Unavailable [phone] Encounter Details Date Type Department Care Team Description 11/21/2021 Director E Learning Report Medical Records [address] [place] [id number] [place] [address] Social History Tobacco Use Types Packs/Day Years [...] on filedocumented in this encounter Care Teams Fire Pot Operator Relationship Specialty Start Date End Date Kirk Randle MD [address] [place] [address] [address] [place] [address] PCP - General Internal Medicine 06/05/21 Ced Victoria MD [address] [place] [address] [address] [place] [address] Weaver Apprentice Cardiovascular Disease 04/05/21 Virgie Trivedi NP [address] [place] [address] [address] [place] [address] Nurse Practitioner Cardiology 04/05/21 Alana Celaya NP [address] [place] [address] [facility] [place] [address] Nurse Practitioner Cardiology 07/17/23 documented as of this encounter
--- OUTSIDE RECORDS SUMMARY | 2024-11-10 11:09 | XMS_ITS | Encounter Summary ---
Author Organization [facility] Address [address] [place] [address] Care Team Providers Care Production Maintenance Mechanic Name Role Phone eCd Victoria MD Unavailable [phone] Virgie Trivedi NP Unavailable [phone] Kirk Randle MD Primary Care Provider [phone] Alana Celaya NP Unavailable [phone] Encounter Details Date Type Department Care Team Description 10/23/2021 Actuary Clerk Report Medical Records [address] [place] [id number] [place] [address] Social History Tobacco Use Types Packs/Day Years [...] filedocumented in this encounter Care Teams Production Maintenance Mechanic Relationship Specialty Start Date End Date Kirk Randle MD [address] [place] [address] [address] [place] [address] PCP - General Internal Medicine 06/05/21 Ced Victoria MD [address] [place] [address] [address] [place] [address] Social Services Manager Cardiovascular Disease 04/05/21 Virgie Trivedi NP [address] [place] [address] [address] [place] [address] Nurse Practitioner Cardiology 04/05/21 Alana Celaya NP [address] [place] [address] [facility] [place] [address] Nurse Practitioner Cardiology 07/17/23 documented as of this encounter
--- OUTSIDE RECORDS SUMMARY | 2024-11-10 11:09 | XMS_ITS | Encounter Summary ---
Author Organization [facility] Address [address] [place] [address] Care Team Providers Care Aerosol Supervisor Name Role Phone Ced Victoria MD Unavailable [phone] Virgie Trivedi NP Unavailable [phone] Kirk Randle MD Primary Care Provider [phone] Alana Celaya NP Unavailable [phone] Encounter Details Date Type Department Care Team Description 10/09/2021 Residential Insurance Inspector Report Medical Records [address] [place] [id number] [place] [address] Social History Tobacco Use Types Packs/Day Years [...] on filedocumented in this encounter Care Teams Aerosol Supervisor Relationship Specialty Start Date End Date Kirk Randle MD [address] [place] [address] [address] [place] [address] PCP - General Internal Medicine 06/05/21 Ced Victoria MD [address] [place] [address] [address] [place] [address] Local Company Hazmat Driver Cardiovascular Disease 04/05/21 Virgie Trivedi NP [address] [place] [address] [address] [place] [address] Nurse Practitioner Cardiology 04/05/21 Alana Celaya NP [address] [place] [address] [facility] [place] [address] Nurse Practitioner Cardiology 07/17/23 documented as of this encounter
--- OUTSIDE RECORDS SUMMARY | 2024-11-10 11:09 | XMS_ITS | Encounter Summary ---
Author Organization [facility] Address [address] [place] [address] Care Team Providers Care Maintenance Of Way Clerk Name Role Phone Ced Victoria MD Unavailable [phone] Virgie Trivedi NP Unavailable [phone] Kirk Randle MD Primary Care Provider [phone] Alana Celaya NP Unavailable [phone] Encounter Details Date Type Department Care Team Description 10/10/2021 Home Health Certification Medical Records [address] [place] [address] Social History Tobacco Use Types Packs/Day Years [...] filedocumented in this encounter Care Teams Maintenance Of Way Clerk Relationship Specialty Start Date End Date Kirk Randle MD [address] [place] [address] [address] [place] [address] PCP - General Internal Medicine 06/05/21 Ced Victoria MD [address] [place] [address] [address] [place] [address] Mri Specialist Cardiovascular Disease 04/05/21 Virgie Trivedi NP [address] [place] [address] [address] [place] [address] Nurse Practitioner Cardiology 04/05/21 Alana Celaya NP [address] [place] [address] Dr [facility] [place] [address] Nurse Practitioner Cardiology 07/17/23 documented as of this encounter
--- OUTSIDE RECORDS SUMMARY | 2024-11-10 11:09 | XMS_ITS | Encounter Summary ---
Author Organization [facility] Address [address] [place] [address] Care Team Providers Care Intel Analyst Name Role Phone Ced Victoria MD Unavailable [phone] Virgie Trivedi NP Unavailable [phone] Kirk Randle MD Primary Care Provider [phone] Alana Celaya NP Unavailable [phone] Encounter Details Date Type Department Care Team Description 12/26/2022 Hospital Medical Records [address] [place] [address] Felix Carlton DPM Social History Tobacco Use [...] on filedocumented in this encounter Care Teams Intel Analyst Relationship Specialty Start Date End Date Kirk Randle MD [address] [place] [address] [address] [place] [address] PCP - General Internal Medicine 06/05/21 Ced Victoria MD [address] [place] [address] [address] [place] [address] Ware Dresser Cardiovascular Disease 04/05/21 Virgie Trivedi NP [address] [place] [address] [address] [place] [address] Nurse Practitioner Cardiology 04/05/21 Alana Cleaya NP [address] [place] [address] [facility] [place] [address] Nurse Practitioner Cardiology 07/17/23 documented as of this encounter
--- OUTSIDE RECORDS SUMMARY | 2024-11-10 11:09 | XMS_ITS | Encounter Summary ---
Author Organization [facility] Address [address] [place] [address] Care Team Providers Care Motor Grader Operator Name Role Phone Ced Victoria MD Unavailable [phone] Virgie Trivedi NP Unavailable [phone] Kirk Randle MD Primary Care Provider [phone] Alana Celaya NP Unavailable [phone] Encounter Details Date Type Department Care Team Description 10/02/2021 Bed Laster Report Medical Records [address] [place] [id number] [place] [address] Social History Tobacco Use Types Packs/Day Years [...] on filedocumented in this encounter Care Teams Motor Grader Operator Relationship Specialty Start Date End Date Kirk Randle MD [address] [place] [address] [address] [place] [address] PCP - General Internal Medicine 06/05/21 Ced Victoria MD [address] [place] [address] [address] [place] [address] Area Attendant Cardiovascular Disease 04/05/21 Virgie Trivedi NP [address] [place] [address] [address] [place], [place] [address] Nurse Practitioner Cardiology 04/05/21 Alana Celaya NP [address] [place] [address] [facility] [place] [address] Nurse Practitioner Cardiology 07/17/23 documented as of this encounter
--- OUTSIDE RECORDS SUMMARY | 2024-11-10 11:09 | XMS_ITS | Encounter Summary ---
Author Organization [facility] Address [address] [place] [address] Care Team Providers Care Lockstitch Cup Setter Name Role Phone Ced Victoria MD Unavailable [phone] Virgie Trivedi NP Unavailable [phone] Kirk Randle MD Primary Care Provider [phone] Alana Celaya NP Unavailable [phone] Encounter Details Date Type Department Care Team Description 10/24/2022 [facility] Vascular Surgery [address] [place] [address] Francine Schofield PA-C Social History Tobacco Use Types Packs/Day [...] on filedocumented in this encounter Care Teams Lockstitch Cup Setter Relationship Specialty Start Date End Date Kirk Randle MD [address] [place] [address] [address] [place] [address] PCP - General Internal Medicine 06/05/21 Ced Victoria MD [address] [place] [address] [address] [place] [address] Windows Migration Technician Cardiovascular Disease 04/05/21 Virgie Trivedi NP [address] [place] [address] [address] [place] [address] Nurse Practitioner Cardiology 04/05/21 Alana Celaya NP [address] [place] [address] Dr [facility] [place] [address] Nurse Practitioner Cardiology 07/17/23 documented as of this encounter
--- OUTSIDE RECORDS SUMMARY | 2024-11-10 11:09 | XMS_ITS | Encounter Summary ---
Author Organization [facility] Address [address] [place] [address] Care Team Providers Care Textile Designer Name Role Phone Ced Victoria MD Unavailable [phone] Virgie Trivedi NP Unavailable [phone] Kirk Randle MD Primary Care Provider [phone] Alana Celaya NP Unavailable [phone] Reason for Visit * Reason Onset Date Comments Form 10/31/2021 Encounter Details Date Type Department Care Team Description 10/31/2021 Telephone Internal Medicine - [address], [address] [place], [place] [address] Kirk Randle MD [address] [place], [place] [id number] Form Social History Tobacco Use Types Packs/Day [...] on filedocumented in this encounter Care Teams Textile Designer Relationship Specialty Start Date End Date Kirk Randle MD [address] [place] [address] [address] [place] [address] PCP - General Internal Medicine 06/05/21 Ced Victoria MD [address] [place] [address] [address] [place] [address] Director Of Business Development Cardiovascular Disease 04/05/21 Virgie Trivedi NP [address] [place] [address] [address] [place] [address] Nurse Practitioner Cardiology 04/05/21 Alana Celaya NP [address] [place] [address] [facility] [place] [address] Nurse Practitioner Cardiology 07/17/23 documented as of this encounter
--- OUTSIDE RECORDS SUMMARY | 2024-11-10 11:09 | XMS_ITS | Encounter Summary ---
Author Organization [facility] Address [address] [place] [address] Care Team Providers Care Press Operator Heavy Duty Name Role Phone Kirk Randle MD Primary Care Provider [phone] Reason for Visit * Reason Comments Follow-up * Consultation (Routine) - Authorized Specialty Diagnoses / Procedures Referred By Jacoby díaz Referred To Contact Cardiology Diagnoses Cardiomyopathy, unspecified type (CMS/HCC) Kirk Randle MD [address] [facility] [address] [place] [address] Phone: tel: fax: [facility] Cardiology [place] [address] [place] [address] Phone: tel: fax: Referral ID Status Reason Start Date Expiration Date Visits Requested Visits Authorized [id number] Authorized Specialty Services Required 10/08/2024 10/08/2025 12 12 Encounter Details Date Type Department Care Team (Latest Contact Info) Description 10/09/2024 9:50 AM EST Office Visit [facility] Cardiology [facility] [address] [place] [address] Bowen Victoria MD [address] [place] [address] [address] [place] [address] Atrial fibrillation, unspecified type (CMS/HCC) (Primary Dx); Coronary artery disease involving craig coronary artery of craig heart without angina pectoris; Dilated cardiomyopathy (CMS/HCC); Chronic venous insufficiency; Cardiomyopathy, unspecified type (CMS/HCC) Social History Tobacco Use Types Packs/Day Years Used Date Smoking Tobacco: Never Smokeless Tobacco: Never Alcohol Use Standard Drinks/Week Comments No 0 (1 standard drink = 0.6 oz pur e alcohol) rarely Sex and Gender Information Value Date Recorded Sex Assigned at Not on file Legal Sex Male 9:42 AM EST Gender Identity Not on file Sexual Orientation Not on file documented as of this [...] from the original note were not included. [facility] CONSULT REQUESTED BY: Dr Randle PCP: Kirk Randle MD HPI: Vladimir lFynn is a 84 y.o. old male with [...] every day. Do not change dietary habits. [facility] directs coumadin instructions warfarin (COUMADIN) 5 mg [...] 94 Q-T Interval 418 QTc 377 R Northbridge 66 T [place]bridge -5 ECG Interpretation Atrial fibrillation with slow [...] ECG 12 lead Coronary artery disease involving craig coronary artery of craig heart without angina pectoris Patient denies chest [...] AM EDT Office Visit Internal Medicine - [address] [place] [phone] Kirk Randle MD [address] [facility] [address] [place] [address] 04/19/2025 10:10 AM EDT Office Visit [facility] Associates [facility] [address] [place] [address] Virgie Trivedi NP [address] [facility] [address] [place], [place] [address] 07/14/2025 1:00 PM EST Appointment [facility] Ultrasound [address] [place] [address] documented as of this encounter Procedures Procedure [...] ms GEMUSE QTc 377 ms GEMUSE R Northbridge 66 degrees GEMUSE T Northbridge -5 degrees GEMUSE ECG Interpretation Atrial fibrillation with slow ventricular response Possible Inferior infarct (cited on or before 02-APR-2021) Abnormal ECG When compared with ECG of 24-OCT-2022 16:17, QT has shortened Confirmed by Kathya VICTORIA, BOWEN ([id number]) on 10/09/2024 5:06:39 PM GEMUSE 10/09/2024 10:2 5 AM EST 10/09/2024 5:06 PM EST us Bowen Victoria MD ECG ORDERABLES Final Result GEMUSE documented in this encounter Visit Diagnoses Diagnosis Atrial fibrillation, unspecified type (CMS/HCC)- Primary Coronary artery disease involving craig coronary artery of craig heart without angina pectoris Dilated cardiomyopathy (CMS/HCC) Other primary cardiomyopathies Chronic venous insufficiency Unspecified venous (peripheral) insufficiency Cardiomyopathy, unspecified type (CMS/HCC) documented in this encounter Orders Outpatient Referral Count Last Ordered Date Fir st Ordered Date AMB REFERRAL TO CARDIOLOGY 1 10/23/2024 documented in this encounter Additional Health Concerns Assessment Noted Time PHQ-9 Depression Total Score: 0 09/30/19 25 9:22 AM EST A fall risk assessment has been complete d for the patient 09/30/2024 9:20 AM EST documented as of this encounter Care Teams Press Operator Heavy Duty Relationship Specialty Start Date End Date Kirk Randle MD 175 [facility] [address] [place] [address] PCP - General Internal Medicine 07/12/20 documented as of this encounter
--- OUTSIDE RECORDS SUMMARY | 2024-11-10 11:09 | XMS_ITS | Encounter Summary ---
Author Organization [facility] Address [address] [place] [address] Care Team Providers Care Head Of Research & Insights Name Role Phone Ced Victoria MD Unavailable [phone] Virgie Trivedi NP Unavailable [phone] Kirk Randle MD Primary Care Provider [phone] Alana Celaya NP Unavailable [phone] Encounter Details Date Type Department Care Team Description 09/15/2021 Home Health Certification Medical Records [address] [place] [id number] Social History Tobacco Use Types Packs/Day Years [...] on filedocumented in this encounter Care Teams Head Of Research & Insights Relationship Specialty Start Date End Date Kirk Randle MD [address] [place] [address] [address] [place], [place] [address] PCP - General Internal Medicine 06/05/21 Ced Victoria MD [address] [place] [address] [address] [place] [address] Pulley Man Cardiovascular Disease 04/05/21 Virgie Trivedi NP [address] [place] [address] [address] [place] [address] Nurse Practitioner Cardiology 04/05/21 Alana Celaya NP [address] [place] [address] [facility] [place] [address] Nurse Practitioner Cardiology 07/17/23 documented as of this encounter
--- OUTSIDE RECORDS SUMMARY | 2024-11-10 11:09 | XMS_ITS | Encounter Summary ---
Author Organization [facility] Address [address] [place] [address] Care Team Providers Care Hostess Host Name Role Phone Ced Victoria MD Unavailable [phone] Virgie Trivedi NP Unavailable [phone] Kirk Randle MD Primary Care Provider [phone] Alana Celaya NP Unavailable [phone] Encounter Details Date Type Department Care Team Description 10/17/2021 Sow Manager Report Medical Records [address] [place] [address] Abstract, Provider Social History Tobacco Use Types [...] on filedocumented in this encounter Care Teams Hostess Host Relationship Specialty Start Date End Date Kirk Randle MD [address] [place] [address] [address] [place] [address] PCP - General Internal Medicine 06/05/21 Ced Victoria MD [address] [place] [address] [address] [place] [address] Label Machine Operator Cardiovascular Disease 04/05/21 Virgie Trivedi NP [address] [place] [address] [address] [place] [address] Nurse Practitioner Cardiology 04/05/21 Alana Celaya NP [address] [place] [address] Dr [facility] [place] [address] Nurse Practitioner Cardiology 07/17/23 documented as of this encounter
--- OUTSIDE RECORDS SUMMARY | 2024-11-10 11:09 | XMS_ITS | Encounter Summary ---
Author Organization [facility] Address [address] [place] [address] Care Team Providers Care Marine Fisheries Technician Name Role Phone Kirk Randle MD Primary Care Provider [phone] Reason for Visit * Reason Onset Date Comments Jer - Referral 10/07/2024 Encounter Details Date Type Department Care Team (Late st Contact Info) Description 10/07/2024 Telephone Internal Medicine - [place] [address] [facility] [address] [place] [phone] Kirk Randle MD [address] [facility] [address] [place] [address] Jer - Referral Social History Tobacco Use [...] he really needs this referral sent to [facility] because his tatyana is tomorrow at 9am. Please advise Cb# [phone] * Corry Gonsalez - 10/07/2024 9:30 AM EST Referral Request: What insurance does the patient have today? [employer]are [id number] Referrals cannot be processed if the insurance is not accurate. If the insurance listed above in red is NO BILLING INFORMATION FOUND FOR THIS ENCOUTNER The patients correct insurance must be obtained and registered in [facility] or their referral can not be processed. Is this a retro request? no. If yes for what date of service do you need the retro referral? N/A Who is calling to request this referral[facility] If the caller is not the patient, what is their name? William Ask the patient WHO referred them to this specialty: Patient self referred FIRST and LAST NAME of SPECIALIST PATIENT is seeing: NPI - [id number] What specialty is this? Cardiology DIAGNOSIS Patient [...] Visit, for 6 visits Address of Specialist: [address] [place] [address] Phone # of Specialist: [phone] Fax #: (if applicable): [phone] Does patient have an appointment scheduled?: yes Date of appointment- (including a retro-request): 10/09/24 Is this appointment related to: Not MVA, worker compensation, or surgery related documented in this encounter Plan of Treatment Upcoming Encounters Date Type Department Care Team (Late st Contact Info) Description 03/01/2025 11:00 AM EDT Office Visit Internal Medicine - [place] [address] [facility] [address] [place] [phone] Kirk Randle MD [address] [facility] [address] [place] [address] 04/19/2025 10:10 AM EDT Office Visit [facility] - [facility] [address] [place] [phone] Virgie Trivedi, GILBERTO [address] [place] [address] [address] [place] [address] 07/14/2025 1:00 PM EST Appointment [facility] Ultrasound [address] [place] [phone] documented as of this encounter Visit Diagnoses Not on filedocumented in this encounter Additional Health Concerns Assessment Noted Time PHQ-9 Depression Total Score: 0 09/30/19 25 9:22 AM EST A fall risk assessment has been complete d for the patient 09/30/2024 9:20 AM EST documented as of this encounter Care Teams Marine Fisheries Technician Relationship Specialty Start Date End Date Kirk Randle MD 175 [facility] [address] [place] [address] PCP - General Internal Medicine 07/12/20 documented as of this encounter
--- OUTSIDE RECORDS SUMMARY | 2024-11-10 11:09 | XMS_ITS | Encounter Summary ---
Author Organization [facility] Address [address] [place] [address] Care Team Providers Care Explosive Ordnance Technician Name Role Phone Kirk Randle MD Primary Care Provider [phone] Reason for Visit * Reason Onset Date Comments faxed order 11/02/2024 fflick Encounter Details Date Type Department Care Team (Late st Contact Info) Description 11/02/2024 [place] [facility] - [address] [place] [address] Yumi Jordan MA faxed order (fflick) Social History Tobacco Use Types Packs/Day Years [...] as of this encounter Progress Notes * Yumi Jordan MA - 11/05/2024 12:12 PM EST Faxed [phone] * Yumi Jordan MA - 11/02/2024 1:26 PM EST fflick written order for wound care supplies, [id number], [id number] Placed in providers folder for signature. documented in this encounter Plan of Treatment Upcoming Encounters Date Type Department Care Team (Late st Contact Info) Description 03/01/2025 11:00 AM EDT Office Visit Internal Medicine - [place] 175 [facility] [address] [place] [address] Kirk Randle MD [address] [address] 04/19/2025 10:10 AM EDT Office Visit [facility] - [place] [address] [place] [address] Virgie Trivedi NP [address] [place] [address] [address] [place] [address] 07/14/2025 1:00 PM EST Appointment [facility] Ultrasound [address] [place] [phone] documented as of this encounter Visit Diagnoses Not on filedocumented in this encounter Additional Health Concerns Assessment Noted Time PHQ-9 Depression Total Score: 0 09/30/19 9:22 AM EST A fall risk assessment has been complete d for the patient 09/30/2024 9:20 AM EST documented as of this encounter Care Teams Explosive Ordnance Technician Relationship Specialty Start Date End Date Kirk Randle MD [address] [address] PCP - General Internal Medicine 07/12/20 documented as of this encounter
--- OUTSIDE RECORDS SUMMARY | 2024-11-10 11:10 | XMS_ITS | Encounter Summary ---
Author Organization [facility] Address [address] [place] [address] Care Team Providers Care Sanitation Director Name Role Phone Ced Victoria MD Unavailable [phone] Virgie Trivedi NP Unavailable [phone] Kirk Randle MD Primary Care Provider [phone] Alana Celaya NP Unavailable [phone] Encounter Details Date Type Department Care Team Description 10/23/2022 Hospital Medical Records [address] [place] [address] Raffy Gardner MD [address] [address] Social History Tobacco Use Types [...] on filedocumented in this encounter Care Teams Sanitation Director Relationship Specialty Start Date End Date Kirk Randle MD [address] [place] [address] [address] [place] [address] PCP - General Internal Medicine 06/05/21 Ced Victoria MD [address] [place] [address] [address] [place] [address] Assembly Line Worker Cardiovascular Disease 04/05/21 Virgie Trivedi NP [address] [place] [address] [address] [place] [address] Nurse Practitioner Cardiology 04/05/21 Alana Celaya NP [address] [place] [address] [facility] [place] [address] Nurse Practitioner Cardiology 07/17/23 documented as of this encounter
--- OUTSIDE RECORDS SUMMARY | 2024-11-10 11:10 | XMS_ITS | Encounter Summary ---
Author Organization [facility] Address [address] [place] [address] Care Team Providers Care Child Psychology Teacher Name Role Phone Ced Victoria MD Unavailable [phone] Virgie Trivedi NP Unavailable [phone] Kirk Randle MD Primary Care Provider [phone] Alana Celaya NP Unavailable [phone] Encounter Details Date Type Department Care Team Description 10/24/2022 Hospital Medical Records [address] [place] [address] Felix Carlton DPM Social History Tobacco Use [...] on filedocumented in this encounter Care Teams Child Psychology Teacher Relationship Specialty Start Date End Date Kirk Randle MD [address] [place] [address] [address] [place] [address] PCP - General Internal Medicine 06/05/21 Ced Victoria MD [address] [place] [address] [address] [place] [address] Metal Cans Supervisor Cardiovascular Disease 04/05/21 Virgie Trivedi NP [address] [place] [address] [address] [place] [address] Nurse Practitioner Cardiology 04/05/21 Alana Celaya NP [address] [place] [address] [facility] [place] [address] Nurse Practitioner Cardiology 07/17/23 documented as of this encounter
--- OUTSIDE RECORDS SUMMARY | 2024-11-10 11:10 | XMS_ITS | Encounter Summary ---
Author Organization [facility] Address [address] [place] [address] Care Team Providers Care Insurance Producer Name Role Phone Ced Victoria MD Unavailable [phone] Virgie Trivedi NP Unavailable [phone] Kirk Randle MD Primary Care Provider [phone] Alana Celaya NP Unavailable [phone] Encounter Details Date Type Department Care Team Description 10/23/2022 Hospital Medical Records [address] [place] [address] Kimberley Rios PA-C [address] [facility] [address] [place] [address] Social History Tobacco Use Types [...] on filedocumented in this encounter Care Teams Insurance Producer Relationship Specialty Start Date End Date Kirk Randle MD [address] [place] [address] [address] [place] [address] PCP - General Internal Medicine 06/05/21 Ced Victoria MD [address] [place] [address] [address] [place] [address] Community Center Coordinator Cardiovascular Disease 04/05/21 Virgie Trivedi NP [address] [place] [address] [address] [place] [address] Nurse Practitioner Cardiology 04/05/21 Alana Celaya NP [address] [place] [address] [facility] [place] [address] Nurse Practitioner Cardiology 07/17/23 documented as of this encounter
== END 2024-11-10 10:05 | disposition home or self-care (01) ==
LOC: HO.ACS 09:42
PROVIDERS: PCP Internal Medicine; Visit Provider Internal Medicine
DX: Z79.01 Long term (current) use of anticoagulants (principal)

== ENCOUNTER → 2024-11-10 09:42 | Outpatient (BNVA) | payer MEDICARE, SELFPAY | PROVIDERS: PCP Internal Medicine; Visit Provider Internal Medicine | DX: I48.91 Unspecified atrial fibrillation (principal); Z79.01 Long term (current) use of anticoagulants; Z51.81 Encounter for therapeutic drug level monitoring | CPT/HCPCS: 85610; 99211 ==

== ENCOUNTER 2024-12-08 09:47 | Outpatient (AMB) | payer MEDICARE, SELFPAY ==
--- NOTE | 2024-12-08 10:17 | MHC.OFFVISCO ---
Intake Intake Visit Reasons: Anticoagulation Allergies clopidogrel [From PLAVIX] Allergy (Unknown, Verified 12/08/24 10:04) RASH Medication List - Last Reconciled 12/08/24 by Carolina Diaz RN acetaminophen ER 650 mg PO Q12H PRN ascorbic acid (vitamin C) 500 mg PO DAILY atorvastatin 20 mg PO DAILY B-complex with vitamin C 1 tab PO DAILY calcium carb-mag ox-zinc sulf 1 tab PO DAILY coenzyme Q10 10 mg PO TID ferrous sulfate 325 mg PO DAILY furosemide 20 mg PO DAILY metoprolol succinate ER 25 mg PO DAILY omega 8-psp-rhy-fish oil 1,000 (120-180) mg (Fish Oil) 1 cap PO DAILY saw palmetto 500 mg PO BID vitamin E 400 units PO DAILY warfarin (Jantoven) 2.5 tabs See Protocol PO MOTUWETHSA@0900 Nursing Note INR: 3.0 in therapeutic range of 2-3 Medications and supplements reviewed No changes in health, diet, medications, or supplements, Denies any signs and symptoms of bleeding or bruising or clotting. Bleeding, bruising, clotting discussed Nutritional guidance given to have a serving of greens today Dose: 2.5mg daily F/U INR: 4 weeks Patient verbalizes understanding of instructions given Anti-Coag Initial Assessment Social Hx Patient Tobacco Use Status: Never used Tobacco alcohol intake: unknown Coding Level of Care Code Est Patient Level 1 Diagnoses Current use of anticoagulant therapy Z79.01 Results AMB INR Fingerstick AMB INR Fingerstick 3.0 Last Edit by Carolina Diaz RN on 12/08/24 10:14 interface delay Assessment & Plan Assessment & Plan (1) Current use of anticoagulant therapy: Code(s): Z79.01 - 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
[2024-12-08 10:25] LABS: Prothrombin Time Whole Bld POC 35.9 sec (11.1-13.5)
--- OUTSIDE RECORDS SUMMARY | 2024-12-08 11:23 | XMS_ITS | Encounter Summary ---
Author Organization [facility] Address [address] [place] [address] Care Team Providers Care Overnight Cashier Name Role Phone Kirk Randle MD Primary Care Provider [phone] Ced Victoria MD Unavailable [phone] Virgie Trivedi CRUDE UNIT OPERATOR Unavailable [phone] Kirk Randle MD Primary Care Provider + [phone] Alana Celaya CRUDE UNIT OPERATOR Unavailable [phone] Encounter Details Date Type Department Care Team Description 04/10/2021 SCAN Medical Records [address] [place] [address] Social History Tobacco Use Types Packs/Day Years [...] on filedocumented in this encounter Care Teams Overnight Cashier Relationship Specialty Start Date End Date Kirk Randle MD PCP - General Internal Medicine 07/12/20 06/04/21 Kirk Randle MD PCP - General Internal Medicine 06/05/21 Ced Victoria MD [address] [place] [address] [address] [place], [place] [phone] Security Project Manager Cardiovascular Disease 04/05/21 Virgie Trivedi NP [address] [place] [address] [address] [place] [address] Nurse Practitioner Cardiology 04/05/21 Alana Celaya NP [address] [place] [address] [facility] [place], [place] [address] Nurse Practitioner Cardiology 07/17/23 documented as of this encounter
--- OUTSIDE RECORDS SUMMARY | 2024-12-08 11:23 | XMS_ITS | Encounter Summary ---
Author Organization [facility] Address [address] [place] [address] Care Team Providers Care Tail Board Worker Name Role Phone Kirk Randle MD Primary Care Provider [phone] Ced Victoria MD Unavailable [phone] Virgie Trivedi CARE TEAM COORDINATOR SCHEDULER Unavailable [phone] Kirk Randle MD Primary Care Provider + [phone] Alana Celaya CARE TEAM COORDINATOR SCHEDULER Unavailable [phone] Encounter Details Date Type Department Care Team Description 04/10/2021 Hospital Medical Records [address] [place] [address] Kimberley Rios PA-C 300 [facility] [address] [place] [address] Social History Tobacco Use Types [...] on filedocumented in this encounter Care Teams Tail Board Worker Relationship Specialty Start Date End Date Kirk Randle MD PCP - General Internal Medicine 07/12/20 06/04/21 Kirk Randle MD PCP - General Internal Medicine 06/05/21 Ced Victoria MD [address] [place] [address] [address] [place], [place] [phone] Bottom Turning Lathe Tender Cardiovascular Disease 04/05/21 Virgie Trivedi NP [address] [place] [address] [address] [place], [place] [phone] Nurse Practitioner Cardiology 04/05/21 Alana Celaya NP [address] [place] [address] Dr [facility] [place] [address] Nurse Practitioner Cardiology 07/17/23 documented as of this encounter
--- OUTSIDE RECORDS SUMMARY | 2024-12-08 11:23 | XMS_ITS | Encounter Summary ---
Author Organization [facility] Address [address] [place] [address] Care Team Providers Care Crane Manager Name Role Phone Ced Victoria MD Unavailable [phone] Virgie Trivedi NP Unavailable [phone] Kirk Randle MD Primary Care Provider [phone] Alana Celaya NP Unavailable [phone] Encounter Details Date Type Department Care Team Description 08/27/2023 Telephone Internal Medicine - [address], [address] [place], [place] [phone] Kirk Randle MD [address] [place], [place] [id number] Social History Tobacco Use Types Packs/Day Years [...] filedocumented in this encounter Care Teams Crane Manager Relationship Specialty Start Date End Date Kirk Randle MD [address] [place] [address] [address] [place] [address] PCP - General Internal Medicine 06/05/21 Ced Victoria MD [address] [place] [address] [address] [place] [address] Underwriting Operations Manager Cardiovascular Disease 04/05/21 Virgie Trivedi NP [address] [place] [address] [address] [place] [address] Nurse Practitioner Cardiology 04/05/21 Alana Celaya NP [address] [place] [address] [facility] [place] [address] Nurse Practitioner Cardiology 07/17/23 documented as of this encounter
--- OUTSIDE RECORDS SUMMARY | 2024-12-08 11:23 | XMS_ITS | Encounter Summary ---
Author Organization [facility] Address [address] [place] [address] Care Team Providers Care Zinc Plate Grainer Name Role Phone Kirk Randle MD Primary Care Provider [phone] Ced Victoria MD Unavailable [phone] Virgie Trivedi DENTAL PROSTHETIST Unavailable [phone] Kirk Randle MD Primary Care Provider + [phone] Alana Celaya DENTAL PROSTHETIST Unavailable [phone] Reason for Visit * Reason Comments E-prescribe Rx Request Encounter Details Date Type Department Care Team Description 12/05/2020 [facility] Internal Medicine - [address], [address] [place] [address] Octavio Gross MD E-prescribe Rx Request Social [...] 12/05/2020 11:04 AM EDT Pt goes to [facility] Jaquelin Gaytan L.P.N. CLIFF 09/19/2020 NEXT 01/19/2021 documented in this encounter Plan of Treatment Not on file documented as of this encounter Visit Diagnoses Not on filedocumented in this encounter Care Teams Zinc Plate Grainer Relationship Specialty Start Date End Date Kirk Randle MD PCP - General Internal Medicine 07/12/20 06/04/21 Kirk Randle MD PCP - General Internal Medicine 06/05/21 Ced Victoria MD [address] [place] [address] [address] [place] [address] Cook Helper Meat Cardiovascular Disease 04/05/21 Virgie Trivedi NP [address] [place] [address] [address] [place] [address] Nurse Practitioner Cardiology 04/05/21 Alana Celaya NP [address] [place] [address] [facility] [place] [address] Nurse Practitioner Cardiology 07/17/23 documented as of this encounter
--- OUTSIDE RECORDS SUMMARY | 2024-12-08 11:23 | XMS_ITS | Encounter Summary ---
Author Organization [facility] Address [address] [place] [address] Care Team Providers Care Coloring Room Man Name Role Phone Kirk Randle MD Primary Care Provider [phone] Ced Victoria MD Unavailable [phone] Virgie Trivedi NP Unavailable [phone] Kirk Randle MD Primary Care Provider + [phone] Alana Celaya NP Unavailable [phone] Encounter Details Date Type Department Care Team Description 03/23/2021 Hospital Medical Records [address] [place] [address] Parris Dyer, GILBERTO [address] [address] Social History Tobacco Use Types Packs/Day Years [...] on filedocumented in this encounter Care Teams Coloring Room Man Relationship Specialty Start Date End Date Kirk Randle MD PCP - General Internal Medicine 07/12/20 06/04/21 Kirk Randle MD PCP - General Internal Medicine 06/05/21 Ced Victoria MD [address] [place] [address] [address] [place] [address] Radiation Oncology Nurse Cardiovascular Disease 04/05/21 Virgie Trivedi NP [address] [place] [address] [address] [place] [address] Nurse Practitioner Cardiology 04/05/21 Alana Celaya NP [address] [place] [address] Dr [facility] [place] [address] Nurse Practitioner Cardiology 07/17/23 documented as of this encounter
--- OUTSIDE RECORDS SUMMARY | 2024-12-08 11:23 | XMS_ITS | Encounter Summary ---
Author Organization [facility] Address [address] [place] [address] Care Team Providers Care Radiotelephone Operator Name Role Phone Kirk Randle MD Primary Care Provider [phone] Ced Victoria MD Unavailable [phone] Virgie Trivedi NP Unavailable [phone] Kirk Randle MD Primary Care Provider + [phone] Alana Celaya NP Unavailable [phone] Reason for Visit * Reason Onset Date Comments Hospital Procedure 04/13/2021 LEANNA 9.24.21 Encounter Details Date Type Department Care Team Description 04/13/2021 Telephone Cardio PVC POC 154 300 [facility] [address] [place], [place] [phone] Parris Dyer, GILBERTO 300 [facility] [address] [place] [address] Hospital Procedure (LEANNA 9.24.21) Social [...] Scheduled on 06.02.21 per patients request at [facility] w/ YZ at 130pm. Mailing [...] endocarditis documented in this encounter Care Teams Radiotelephone Operator Relationship Specialty Start Date End Date Kirk Randle MD PCP - General Internal Medicine 07/12/20 06/04/21 Kirk Randle MD PCP - General Internal Medicine 06/05/21 Ced Victoria MD [address] [place] [address] [address] [place] [address] Regional Sales Trainer Cardiovascular Disease 04/05/21 Virgie Trivedi NP [address] [place] [address] [address] [place] [address] Nurse Practitioner Cardiology 04/05/21 Alana Celaya NP [address] [place] [address] Dr [facility] [place] [address] Nurse Practitioner Cardiology 07/17/23 documented as of this encounter
--- OUTSIDE RECORDS SUMMARY | 2024-12-08 11:23 | XMS_ITS | Encounter Summary ---
Author Organization [facility] Address [address] [place] [address] Care Team Providers Care Fur Finisher Seamstress Name Role Phone Ced Victoria MD Unavailable [phone] Virgie Trivedi NP Unavailable [phone] Kirk Randle MD Primary Care Provider [phone] Alana Celaya NP Unavailable [phone] Encounter Details Date Type Department Care Team Description 09/26/2023 Home Health Certification Medical Records [address] [place] [address] Social History Tobacco Use Types Packs/Day Years [...] on filedocumented in this encounter Care Teams Fur Finisher Seamstress Relationship Specialty Start Date End Date Kirk Randle MD [address] [place] [address] [address] [place] [address] PCP - General Internal Medicine 06/05/21 Ced Victoria MD [address] [place] [address] [address] [place] [address] Office Asst Cardiovascular Disease 04/05/21 Virgie Trivedi NP [address] [place] [address] [address] [place], [place] [address] Nurse Practitioner Cardiology 04/05/21 Alana Celaya NP [address] [place] [address] [facility] [place] [address] Nurse Practitioner Cardiology 07/17/23 documented as of this encounter
--- OUTSIDE RECORDS SUMMARY | 2024-12-08 11:23 | XMS_ITS | Encounter Summary ---
Author Organization [facility] Address [address] [place] [address] Care Team Providers Care Story Teller Name Role Phone Ced Victoria MD Unavailable [phone] Virgie Trivedi NP Unavailable [phone] Kirk Randle MD Primary Care Provider [phone] Alana Celaya NP Unavailable [phone] Encounter Details Date Type Department Care Team Description 10/15/2023 Orders Only Medical Records [address] [place] [address] [place] Social History Tobacco Use Types [...] on filedocumented in this encounter Care Teams Story Teller Relationship Specialty Start Date End Date Kirk Randle MD [address] [place] [address] [address] [place] [address] PCP - General Internal Medicine 06/05/21 Ced Victoria MD [address] [place] [address] [address] [place] [address] Dural Mechanic Cardiovascular Disease 04/05/21 Virgie Trivedi NP [address] [place] [address] [address] [place] [address] Nurse Practitioner Cardiology 04/05/21 Alana Celaya NP [address] [place] [address] [facility] [place] [address] Nurse Practitioner Cardiology 07/17/23 documented as of this encounter
--- OUTSIDE RECORDS SUMMARY | 2024-12-08 11:23 | XMS_ITS | Encounter Summary ---
Author Organization [facility] Address [address] [place] [address] Care Team Providers Care Carbonizer Name Role Phone Ced Victoria MD Unavailable [phone] Virgie Trivedi NP Unavailable [phone] Kirk Randle MD Primary Care Provider [phone] Alana Celaya NP Unavailable [phone] Encounter Details Date Type Department Care Team Description 07/09/2023 Hospital Medical Records [address] [place] [address] Raffy Gardner MD [address] [address] Social History Tobacco Use Types [...] on filedocumented in this encounter Care Teams Carbonizer Relationship Specialty Start Date End Date Kirk Randle MD [address] [place] [address] [address] [place] [address] PCP - General Internal Medicine 06/05/21 Ced Victoria MD [address] [place] [address] [address] [place] [address] Assistant Cross Country Coach Cardiovascular Disease 04/05/21 Virgie Trivedi NP [address] [place] [address] [address] [place] [address] Nurse Practitioner Cardiology 04/05/21 Aalna Celaya NP [address] [place] [address] [facility] [place] [address] Nurse Practitioner Cardiology 07/17/23 documented as of this encounter
--- OUTSIDE RECORDS SUMMARY | 2024-12-08 11:23 | XMS_ITS | Encounter Summary ---
Author Organization [facility] Address [address] [place] [address] Care Team Providers Care Statement Services Representative Name Role Phone Ced Victoria MD Unavailable [phone] Virgie Trivedi NP Unavailable [phone] Kirk Randle MD Primary Care Provider [phone] Alana Celaya NP Unavailable [phone] Encounter Details Date Type Department Care Team Description 10/18/2023 Telephone Internal Medicine - [address], [address] [place], [place] [phone] Kirk Randle MD [address] [place], [place] [phone] Social History Tobacco Use Types Packs/Day Years [...] on filedocumented in this encounter Care Teams Statement Services Representative Relationship Specialty Start Date End Date Kirk Randle MD [address] [place] [address] [address] [place] [address] PCP - General Internal Medicine 06/05/21 Ced Victoria MD [address] [place] [address] [address] [place] [address] Testing And Regulating Technician Cardiovascular Disease 04/05/21 Virgie Trivedi NP [address] [place] [address] [address] [place] [address] Nurse Practitioner Cardiology 04/05/21 Alana Celaya NP [address] [place] [address] [facility] [place] [address] Nurse Practitioner Cardiology 07/17/23 documented as of this encounter
--- OUTSIDE RECORDS SUMMARY | 2024-12-08 11:23 | XMS_ITS | Encounter Summary ---
Author Organization [facility] Address [address] [place] [address] Care Team Providers Care Assembler Equipment Name Role Phone Kirk Randle MD Primary Care Provider [phone] Ced Victoria MD Unavailable [phone] Virgie Trivedi COSMETIC SALES ASSISTANT Unavailable [phone] Kirk Randle MD Primary Care Provider + [phone] Alana Celaya COSMETIC SALES ASSISTANT Unavailable [phone] Encounter Details Date Type Department Care Team Description 04/05/2021 Telephone Cardio PVC [facility] [address] [facility] [address] [place] [address] Caren Licona MD [address] [place] [id number] Social History Tobacco Use Types Packs/Day Years [...] Telephone Encounter - Sangita Alvarez C.M.A. - 04/06/2021 8:45 AM EDT I will hold on to the order for LEANNA for patient to be booked in 4 months. Pj whenever he is seen with you can you put the order in for LEANNA in [facility] [place] [address] please and thank you. * Telephone Encounter - Calli Johnson - 04/05/2021 1:50 PM EDT 04/05/21. I received an email from Sterling Alvarez on Vladimir. Sterling saw Vladimir in the hospital and emailed christina request for a follow up visit for Vladimir to see either Virgie Trivedi or Dr Victoria. He also stated in his email that Vladimir will need a LEANNA set up in four months with Dr Licona. The diagnosis is sepsis, rule out endocarditis. Can you please arrange the LEANNA? Thanks. documented in this encounter Plan of Treatment Not on file documented as of this encounter Visit Diagnoses Not on filedocumented in this encounter Care Teams Assembler Equipment Relationship Specialty Start Date End Date Kirk Randle MD PCP - General Internal Medicine 07/12/20 06/04/21 Kirk Randle MD PCP - General Internal Medicine 06/05/21 Ced Victoria MD [address] [place] [address] [address] [place] [address] Chief Digital Media Officer Cardiovascular Disease 04/05/21 Virgie Trivedi NP [address] [place] [address] [place] [address] Nurse Practitioner Cardiology 04/05/21 Alana Celaya NP [address] [place] [address] [facility] [place] [address] Nurse Practitioner Cardiology 07/17/23 documented as of this encounter
--- OUTSIDE RECORDS SUMMARY | 2024-12-08 11:23 | XMS_ITS | Encounter Summary ---
Author Organization [facility] Address [address] [place] [address] Care Team Providers Care Vice President Of Communications Name Role Phone Ced Victoria MD Unavailable [phone] Virgie Trivedi NP Unavailable [phone] Kirk Randle MD Primary Care Provider [phone] Alana Celaya NP Unavailable [phone] Encounter Details Date Type Department Care Team Description 03/26/2022 Fixture Builder Report Medical Records [address] [place] [address] Feliz Gonzalez Social History Tobacco Use Types [...] on filedocumented in this encounter Care Teams Vice President Of Communications Relationship Specialty Start Date End Date Kirk Randle MD [address] [place] [address] [address] [place] [address] PCP - General Internal Medicine 06/05/21 Ced Victoria MD [address] [place] [address] [address] [place] [address] Financial Aid Advisor Cardiovascular Disease 04/05/21 Virgie Trivedi NP [address] [place] [address] [address] [place], [place] [phone] Nurse Practitioner Cardiology 04/05/21 Alana Celaya NP [address] [place] [address] [facility] [place] [address] Nurse Practitioner Cardiology 07/17/23 documented as of this encounter
--- OUTSIDE RECORDS SUMMARY | 2024-12-08 11:23 | XMS_ITS | Encounter Summary ---
Author Organization [facility] Address [address] [place] [address] Care Team Providers Care Tuber Helper Name Role Phone Kirk Randle MD Primary Care Provider [phone] Ced Victoria MD Unavailable [phone] Virgie Trivedi ENTERPRISE SYSTEMS ENGINEER Unavailable [phone] Kirk Randle MD Primary Care Provider + [phone] Alana Celaya NP Unavailable [phone] Encounter Details Date Type Department Care Team Description 03/20/2021 Trouble Shooting Mechanic Report Medical Records [address] [place] [address] Agustin Gore Social History Tobacco Use Types [...] on filedocumented in this encounter Care Teams Tuber Helper Relationship Specialty Start Date End Date Kirk Randle MD PCP - General Internal Medicine 07/12/20 06/04/21 Kirk Randle MD PCP - General Internal Medicine 06/05/21 Ced Victoria MD [address] [place] [address] [address] [place] [address] Restaurant Expeditor Cardiovascular Disease 04/05/21 Virgie Trivedi NP [address] [place] [address] [address] [place], [place] [address] Nurse Practitioner Cardiology 04/05/21 Alana Celaya NP [address] [place] [address] [facility] [place] [address] Nurse Practitioner Cardiology 07/17/23 documented as of this encounter
--- OUTSIDE RECORDS SUMMARY | 2024-12-08 11:23 | XMS_ITS | Encounter Summary ---
Author Organization [facility] Address [address] [place] [address] Care Team Providers Care Stable Attendant Name Role Phone Ced Victoria MD Unavailable [phone] Virgie Trivedi NP Unavailable [phone] Kirk Randle MD Primary Care Provider [phone] Alana Celaya NP Unavailable [phone] Encounter Details Date Type Department Care Team Description 09/17/2023 Orders Only Medical Records [address] [place] [address] [place] Social History Tobacco Use Types [...] on filedocumented in this encounter Care Teams Stable Attendant Relationship Specialty Start Date End Date Kirk Ranlde MD [address] [place] [address] [address] [place] [address] PCP - General Internal Medicine 06/05/21 Ced Victoria MD [address] [place] [address] [address] [place] [address] Hat Finishing Materials Preparer Cardiovascular Disease 04/05/21 Virgie Trivedi NP [address] [place] [address] [address] [place] [address] Nurse Practitioner Cardiology 04/05/21 Alana Celaya NP [address] [place] [address] [facility] [place] [address] Nurse Practitioner Cardiology 07/17/23 documented as of this encounter
--- OUTSIDE RECORDS SUMMARY | 2024-12-08 11:23 | XMS_ITS | Encounter Summary ---
Author Organization [facility] Address [address] [place] [address] Care Team Providers Care Windshield Wiper Repairer Name Role Phone Kirk Randle MD Primary Care Provider [phone] Ced Victoria MD Unavailable [phone] Virgie Trivedi CASE TECHNICIAN Unavailable [phone] Kirk Randle MD Primary Care Provider + [phone] Alana Celaya CASE TECHNICIAN Unavailable [phone] Encounter Details Date Type Department Care Team Description 04/01/2021 Hospital Medical Records [address] [place] [id number] [place] [address] Social History Tobacco Use Types Packs/Day Years [...] on filedocumented in this encounter Care Teams Windshield Wiper Repairer Relationship Specialty Start Date End Date Kirk Randle MD PCP - General Internal Medicine 07/12/20 06/04/21 Kirk Randle MD PCP - General Internal Medicine 06/05/21 Ced Victoria MD [address] [place] [address] [address] [place] [address] Property Custodian Cardiovascular Disease 04/05/21 Virgie Trivedi NP [address] [place] [address] [address] [place] [address] Nurse Practitioner Cardiology 04/05/21 Alana Celaya NP [address] [place] [address] [facility] [place] [address] Nurse Practitioner Cardiology 07/17/23 documented as of this encounter
--- OUTSIDE RECORDS SUMMARY | 2024-12-08 11:23 | XMS_ITS | Encounter Summary ---
Author Organization [facility] Address [address] [place] [address] Care Team Providers Care Facility Maintenance Helper Name Role Phone Kirk Randle MD Primary Care Provider [phone] Ced Victoria MD Unavailable [phone] Virgie Trivedi CHEMICAL UNIT OPERATOR Unavailable [phone] Kirk Randle MD Primary Care Provider + [phone] Alana Celaya CHEMICAL UNIT OPERATOR Unavailable [phone] Encounter Details Date Type Department Care Team Description 04/13/2021 SCAN Medical Records [address] [place] [address] Abstract, Provider Social History Tobacco Use Types [...] on filedocumented in this encounter Care Teams Facility Maintenance Helper Relationship Specialty Start Date End Date Kirk Randle MD PCP - General Internal Medicine 07/12/20 06/04/21 Kirk Randle MD PCP - General Internal Medicine 06/05/21 Ced Victoria MD [address] [place] [address] [address] [place] [address] Drink Box Mechanic Cardiovascular Disease 04/05/21 Virgie Trivedi NP [address] [place] [address] [address] [place], [place] [address] Nurse Practitioner Cardiology 04/05/21 Alana Celaya NP [address] [place] [address] [facility] [place], [place] [address] Nurse Practitioner Cardiology 07/17/23 documented as of this encounter
--- OUTSIDE RECORDS SUMMARY | 2024-12-08 11:23 | XMS_ITS | Encounter Summary ---
Author Organization [facility] Address [address] [place] [address] Care Team Providers Care Training Development Manager Name Role Phone Ced Victoria MD Unavailable [phone] Virgie Trivedi NP Unavailable [phone] Kirk Randle MD Primary Care Provider [phone] Alana Celaya NP Unavailable [phone] Encounter Details Date Type Department Care Team Description 07/28/2023 Home Health Certification Medical Records [address] [place] [address] Social History Tobacco Use Types Packs/Day Years [...] on filedocumented in this encounter Care Teams Training Development Manager Relationship Specialty Start Date End Date Kirk Randle MD [address] [place] [address] [address] [place] [address] PCP - General Internal Medicine 06/05/21 Ced Victoria MD [address] [place] [address] [address] [place] [address] Sales And Production Manager Cardiovascular Disease 04/05/21 Virgie Trivedi NP [address] [place] [address] [address] [place] [address] Nurse Practitioner Cardiology 04/05/21 Alana Celaya NP [address] [place] [address] [facility] [place] [address] Nurse Practitioner Cardiology 07/17/23 documented as of this encounter
--- OUTSIDE RECORDS SUMMARY | 2024-12-08 11:23 | XMS_ITS | Encounter Summary ---
Author Organization [facility] Address [address] [place] [address] Care Team Providers Care Bridge Repairer Name Role Phone Ced Victoria MD Unavailable [phone] Virgie Trivedi NP Unavailable [phone] Kirk Randle MD Primary Care Provider [phone] Alana Celaya NP Unavailable [phone] Encounter Details Date Type Department Care Team Description 03/19/2022 Bsa Officer Report Medical Records [address] [place] [id number] [place] [address] Social History Tobacco Use Types Packs/Day Years [...] on filedocumented in this encounter Care Teams Bridge Repairer Relationship Specialty Start Date End Date Kirk Randle MD [address] [place] [address] [address] [place] [address] PCP - General Internal Medicine 06/05/21 Ced Victoria MD [address] [place] [address] [address] [place] [address] Dye Padder Operator Cardiovascular Disease 04/05/21 Virgie Trivedi NP [address] [place] [address] [address] [place] [address] Nurse Practitioner Cardiology 04/05/21 Alana Celaya NP [address] [place] [address] [facility] [place] [address] Nurse Practitioner Cardiology 07/17/23 documented as of this encounter
--- OUTSIDE RECORDS SUMMARY | 2024-12-08 11:23 | XMS_ITS | Encounter Summary ---
Author Organization [facility] Address [address] [place] [address] Care Team Providers Care Senior Product Development Engineer Name Role Phone Kirk Randle MD Primary Care Provider [phone] Ced Victoria MD Unavailable [phone] Virgie Trivedi CIGAR PACKER AND SHADER Unavailable [phone] Kirk Randle MD Primary Care Provider + [phone] Alana Celaya CIGAR PACKER AND SHADER Unavailable [phone] Encounter Details Date Type Department Care Team Description 10/13/2020 Platform Material Handler Manager Report Medical Records [address] [place] [address] Svetlana Escobar MD Social History Tobacco Use [...] filedocumented in this encounter Care Teams Senior Product Development Engineer Relationship Specialty Start Date End Date Kirk Randle MD PCP - General Internal Medicine 07/12/20 06/04/21 Kirk Randle MD PCP - General Internal Medicine 06/05/21 Ced Victoria MD [address] [place] [address] [address] [place] [address] Line Repairer Cardiovascular Disease 04/05/21 Virgie Trivedi NP [address] [place] [address] [address] [place] [address] Nurse Practitioner Cardiology 04/05/21 Alana Celaya NP [address] [place] [address] [facility] [place] [address] Nurse Practitioner Cardiology 07/17/23 documented as of this encounter
--- OUTSIDE RECORDS SUMMARY | 2024-12-08 11:24 | XMS_ITS | Encounter Summary ---
Author Organization [facility] Address [address] [place] [address] Care Team Providers Care Comfort Advisor Name Role Phone Ced Victoria MD Unavailable [phone] Virgie Trivedi NP Unavailable [phone] Kirk Randle MD Primary Care Provider [phone] Alana Celaya NP Unavailable [phone] Encounter Details Date Type Department Care Team Description 08/30/2022 Orders Only Internal Medicine - [address], [address] [place] [address] Kirk Randle MD [address] [place], [place] [id number] Social History Tobacco Use Types Packs/Day Years [...] on filedocumented in this encounter Care Teams Comfort Advisor Relationship Specialty Start Date End Date Kirk Randle MD [address] [place] [address] [address] [place] [address] PCP - General Internal Medicine 06/05/21 Ced Victoria MD [address] [place] [address] [address] [place] [address] Repairer Helper Cardiovascular Disease 04/05/21 Virgie Trivedi NP [address] [place] [address] [address] [place] [address] Nurse Practitioner Cardiology 04/05/21 Alana Celaya NP [address] [place] [address] [facility] [place] [address] Nurse Practitioner Cardiology 07/17/23 documented as of this encounter
--- OUTSIDE RECORDS SUMMARY | 2024-12-08 11:24 | XMS_ITS | Encounter Summary ---
Author Organization [facility] Address [address] [place] [address] Care Team Providers Care Sales Route Driver Name Role Phone Kirk Randle MD Primary Care Provider [phone] Ced Victoria MD Unavailable [phone] Virgie Trivedi THERAPIST SPEECH Unavailable [phone] Kirk Randle MD Primary Care Provider + [phone] Alana Celaya THERAPIST SPEECH Unavailable [phone] Encounter Details Date Type Department Care Team Description 06/01/2021 Refill Internal Medicine - [address], [address] [place], [place] [id number] Kirk Randle MD [address] [place], [place] [id number] Social History Tobacco Use Types Packs/Day Years [...] on filedocumented in this encounter Care Teams Sales Route Driver Relationship Specialty Start Date End Date Kirk Randle MD PCP - General Internal Medicine 07/12/20 06/04/21 Kirk Randle MD PCP - General Internal Medicine 06/05/21 Ced Victoria MD [address] [place] [address] [address] [place] [address] Polysomnographic Tech Cardiovascular Disease 04/05/21 Virgie Trivedi NP [address] [place] [address] [address] [place] [address] Nurse Practitioner Cardiology 04/05/21 Alana Celaya NP [address] [place] [address] [facility] [place] [address] Nurse Practitioner Cardiology 07/17/23 documented as of this encounter
--- OUTSIDE RECORDS SUMMARY | 2024-12-08 11:24 | XMS_ITS | Encounter Summary ---
Author Organization [facility] Address [address] [place] [address] Care Team Providers Care Director Of Financial Aid Name Role Phone Kirk Randle MD Primary Care Provider [phone] Ced Victoria MD Unavailable [phone] Virgie Trivedi POULTRY FIELD SERVICE TECHNICIAN Unavailable [phone] Kirk Randle MD Primary Care Provider [phone] Alana Celaya POULTRY FIELD SERVICE TECHNICIAN Unavailable [phone] Reason for Visit * Reason Onset Date Comments VNA Call 05/24/2021 Encounter Details Date Type Department Care Team Description 05/24/2021 Telephone Internal Medicine - [address], [address] [place] [address] Kirk Randle MD [address] [place] [address] VNA Call Social History Tobacco Use Types [...] Telephone Encounter - Judi Truong RN - 05/24/2021 1:37 PM EDT FYI, verbal orders given. * Telephone Encounter - Elmer Ledesma - 05/24/2021 1:28 PM EDT [facility]NA CALL Which [facility] office is calling? [email or web address] Full name of caller: Meche 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 A nurse Is the caller at the patients home?: NO Reason for call: need verbal orders penitentiary, physical and occupational therapy Does caller need an urgent call back? NO Was CONTACT Telephone # obtained above?: YES Fax #: n/a documented in this encounter Plan of Treatment Not on file documented as of this encounter Visit Diagnoses Not on filedocumented in this encounter Care Teams Director Of Financial Aid Relationship Specialty Start Date End Date Kirk Randle MD PCP - General Internal Medicine 07/12/20 06/04/21 Kirk Randle MD PCP - General Internal Medicine 06/05/21 Ced Victoria MD [address] [place] [address] [address] [place] [address] Dean Of Chapel Cardiovascular Disease 04/05/21 Virgie Trivedi NP [address] [place] [address] [address] [place] [address] Nurse Practitioner Cardiology 04/05/21 Alana Celaya NP [address] [place] [address] [facility] [place] [address] Nurse Practitioner Cardiology 07/17/23 documented as of this encounter
--- OUTSIDE RECORDS SUMMARY | 2024-12-08 11:24 | XMS_ITS | Encounter Summary ---
Author Organization [facility] Address [address] [place] [address] Care Team Providers Care Hot Mill Roller Name Role Phone Ced Victoria MD Unavailable [phone] Virgie Trivedi NP Unavailable [phone] Kirk Randle MD Primary Care Provider [phone] Alana Celaya NP Unavailable [phone] Encounter Details Date Type Department Care Team Description 11/08/2023 Orders Only Medical Records [address] [place] [address] Raffy Gardner MD [address] [address] Social History Tobacco Use Types [...] on filedocumented in this encounter Care Teams Hot Mill Roller Relationship Specialty Start Date End Date Kirk Randle MD [address] [place] [address] [address] [place] [address] PCP - General Internal Medicine 06/05/21 Ced Victoria MD [address] [place] [address] [address] [place] [address] Surveying Crew Stake Runner Cardiovascular Disease 04/05/21 Virgie Trivedi NP [address] [place] [address] [address] [place] [address] Nurse Practitioner Cardiology 04/05/21 Alana Celaya NP [address] [place] [address] [facility] [place] [address] Nurse Practitioner Cardiology 07/17/23 documented as of this encounter
--- OUTSIDE RECORDS SUMMARY | 2024-12-08 11:24 | XMS_ITS | Encounter Summary ---
Author Organization [facility] Address [address] [place] [address] Care Team Providers Care Job Developer Name Role Phone Ced Victoria MD Unavailable [phone] Virgie Trivedi NP Unavailable [phone] Kirk Randle MD Primary Care Provider [phone] Alana Celaya NP Unavailable [phone] Encounter Details Date Type Department Care Team Description 12/16/2023 Orders Only Medical Records [address] [place] [address] [place] Social History Tobacco Use Types [...] on filedocumented in this encounter Care Teams Job Developer Relationship Specialty Start Date End Date Kirk Randle MD [address] [place] [address] [address] [place] [address] PCP - General Internal Medicine 06/05/21 Ced Victoria MD [address] [place] [address] [address] [place] [address] Multi Skilled Operator Cardiovascular Disease 04/05/21 Virgie Trivedi NP [address] [place] [address] [address] [place] [address] Nurse Practitioner Cardiology 04/05/21 Alana Celaya NP [address] [place] [address] [facility] [place] [address] Nurse Practitioner Cardiology 07/17/23 documented as of this encounter
--- OUTSIDE RECORDS SUMMARY | 2024-12-08 11:24 | XMS_ITS | Encounter Summary ---
Author Organization [facility] Address [address] [place] [address] Care Team Providers Care Product Development Engineer Name Role Phone Octavio Gross MD Primary Care Provider Unavaila Kathie [place] PA-C Primary Care Provider + Kirk Randle MD Primary Care Provider [phone] Ced Victoria MD Unavailable [phone] Virgie Trivedi NP Unavailable [phone] Kirk Randle MD Primary Care Provider [phone] Alana Celaya NP Unavailable [phone] Encounter Details Date Type Department Care Team Description 06/15/2019 Timber Deadener Report Medical Records [address] [place] [address] Svetlana Escobar MD Social History Tobacco Use [...] on filedocumented in this encounter Care Teams Product Development Engineer Relationship Specialty Start Date End Date Octavio Gross MD PCP - General Internal Medicine 05/19/18 02/22/20 Kathie Le PA-C PCP - General Internal Medicine 02/23/20 07/11/20 Kirk Randle MD PCP - General Internal Medicine 07/12/20 06/04/21 Kirk Randle MD PCP - General Internal Medicine 06/05/21 Ced Victoria MD [address] [place] [address] [address] [place] [address] Chicken Cleaner Cardiovascular Disease 04/05/21 Virgie Trivedi NP [address] [place] [address] [address] [place] [address] Nurse Practitioner Cardiology 04/05/21 Alana Celaya NP [address] [place] [address] [facility] [place], [place] [address] Nurse Practitioner Cardiology 07/17/23 documented as of this encounter
--- OUTSIDE RECORDS SUMMARY | 2024-12-08 11:24 | XMS_ITS | Encounter Summary ---
Author Organization [facility] Address [address] [place] [address] Care Team Providers Care Youtuber Name Role Phone Ced Victoria MD Unavailable [phone] Virgie Trivedi NP Unavailable [phone] Kirk Randle MD Primary Care Provider [phone] Alana Celaya NP Unavailable [phone] Reason for Visit * Reason Onset Date Comments REFERRAL 06/26/2022 Encounter Details Date Type Department Care Team Description 06/26/2022 Telephone Internal Medicine - [address], [address] [place] [address] Kirk Randle MD [address] [place], [place] [id number] REFERRAL Social History Tobacco Use Types Packs/Day [...] Paris Beth - 07/09/2022 10:14 AM EDT [facility] calling to f/u on referral status. * Telephone Encounter - Ethan Lam - 06/26/2022 11:05 AM EDT What insurance does the patient have today? [facility] Effective 06/09/09: BCBS will not retro referral [...] insurance must be obtained and registered in [facility] or their referral can not [...] Is this visit:Follow Up Address of Specialist: [address] [place] [address] Phone # of Specialist: [phone] Ext. [phone] Fax #: (if applicable): [phone] Does patient have an appointment scheduled?: NO Date of appointment- (including a retro-request): 04/17/22 Is this appointment related to: Not MVA, WC or Surgery related documented in this encounter Plan of Treatment Not on file documented as of this encounter Visit Diagnoses Not on filedocumented in this encounter Care Teams Youtuber Relationship Specialty Start Date End Date Kirk Randle MD [address] [place] [address] [address] [place] [address] PCP - General Internal Medicine 06/05/21 Ced Victoria MD [address] [place] [address] [address] [place] [address] System Configuration Specialist Cardiovascular Disease 04/05/21 Virgie Trivedi NP [address] [place] [address] [address] [place] [address] Nurse Practitioner Cardiology 04/05/21 Alana Celaya NP [address] [place] [address] [facility] [place] [address] Nurse Practitioner Cardiology 07/17/23 documented as of this encounter
--- OUTSIDE RECORDS SUMMARY | 2024-12-08 11:24 | XMS_ITS | Encounter Summary ---
Author Organization [facility] Address [address] [place] [address] Care Team Providers Care Roller Embosser Name Role Phone Ced Victoria MD Unavailable [phone] Virgie Trivedi NP Unavailable [phone] Kirk Randle MD Primary Care Provider [phone] Alana Celaya NP Unavailable [phone] Encounter Details Date Type Department Care Team Description 01/03/2024 Electroencephalographic Technician Report Medical Records [address] [place] [address] Social History Tobacco Use Types Packs/Day Years [...] filedocumented in this encounter Care Teams Roller Embosser Relationship Specialty Start Date End Date Kirk Randle MD [address] [place] [address] [address] [place] [address] PCP - General Internal Medicine 06/05/21 Ced Victoria MD [address] [place] [address] [address] [place] [address] C Programmer Cardiovascular Disease 04/05/21 Virgie Trivedi NP [address] [place] [address] [address] [place] [address] Nurse Practitioner Cardiology 04/05/21 Alana Celaya NP [address] [place] [address] [facility] [place] [address] Nurse Practitioner Cardiology 07/17/23 documented as of this encounter
--- OUTSIDE RECORDS SUMMARY | 2024-12-08 11:24 | XMS_ITS | Encounter Summary ---
Author Organization [facility] Address [address] [place] [address] Care Team Providers Care Yardage Tufting Machine Operator Name Role Phone Ced Victoria MD Unavailable [phone] Virgie Trivedi NP Unavailable [phone] Kirk Randle MD Primary Care Provider [phone] Alana Celaya NP Unavailable [phone] Reason for Visit * Reason Onset Date Comments REFERRAL 06/05/2021 Encounter Details Date Type Department Care Team Description 06/05/2021 Telephone Internal Medicine - [address], [address] [place], [place] [id number] Kirk Randle MD [address] [place], [place] [id number] REFERRAL Social History Tobacco Use Types Packs/Day [...] encounter Miscellaneous Notes * Telephone Encounter - Gail Finnegan - 06/05/2021 3:55 PM EDT [facility] the [facility] ?? Effective 06/09/09: BCBS will not retro referral requests over 90 days. If request is for this please instruct patient to call the 800# on their insurance card to appeal. Do not submit a request. ?? Referrals cannot be processed if the insurance is not accurate. If the insurance listed above in red is NO BILLING INFORMATION FOUND FOR THIS ENCOUTNER The patients correct insurance must be obtained and registered in [place] or their referral can not be processed. ?? Is this a retro request? NO. ?? If yes for what date of service do you need the retro referral? N/A ?? Who is calling to request this referral? [facility] ?? If the caller is not the patient, what is their name? patient ?? Ask the patient WHO referred them to this specialty: Patient self referred ?? FIRST and LAST NAME of SPECIALIST PATIENT is seeing: Dr. Shala Longo Visits 8 ?? What specialty is this? Ophthmology ?? DIAGNOSIS Patient is being seen for (Not a body part or a procedure): Annual eye exam ?? Have you seen this SPECIALIST for this PROBLEM/DX before?yes ?? If YES, when:04/01/20 ?? Have you checked REVIEW or the APPT DESK to see if this referral has already been done or has visits left? YES ?? Is this visit:Initial Visit ?? Address of Specialist:[address] [place] [address] ?? Phone # of Specialist:[phone] ?? Fax #: (if applicable):[phone] ?? Does patient have an appointment scheduled?: YES ?? Date of appointment- (including a retro-request): 06/13/21- 6 visits ?? Is this appointment related to: Not MVA, WC or Surgery related documented in this encounter Plan of Treatment Not on file documented as of this encounter Visit Diagnoses Not on filedocumented in this encounter Care Teams Yardage Tufting Machine Operator Relationship Specialty Start Date End Date Kirk Randle MD [address] [place] [address] [address] [place] [address] PCP - General Internal Medicine 06/05/21 Ced Victoira MD [address] [place] [address] [address] [place] [address] Firewall Security Engineer Cardiovascular Disease 04/05/21 Virgie Trivedi NP [address] [place] [address] [address] [place] [address] Nurse Practitioner Cardiology 04/05/21 Alana Celaya NP [address] [place] [address] [facility] [place] [address] Nurse Practitioner Cardiology 07/17/23 documented as of this encounter
--- OUTSIDE RECORDS SUMMARY | 2024-12-08 11:24 | XMS_ITS ---
Author Organization [facility] Address [address] [place] [address] Care Team Providers Care Rolled Seat Trimmer Name Role Phone Kirk Randle MD Primary Care Provider UnavailAnuradha Camp Unavailable [phone] Allergies Allergen (clinical drug ingredient) Drug/Non Drug Allergy documented on EMR Reaction Allergy Type Onset Date Status clopidogrel Plavix rash Drug Allergy Activ e REASON FOR VISIT Open sore, Skin problem(s) Medications Medication SIG (Take, Route, Frequency, Duration) Notes Start Date End Date Status Ibuprofen 800 MG 1 tablet every Orall y Three times a day for 14 days Not-Taking Cipro 500 MG 1 tablet Orally Twic e a day for 10 day(s) 08/24/2015 Not-Taking Gym Note . . . Medical from gym ; he has been disabled from 07/27/15 thru 09/16/15 09/14/2015 Not-Taking Lisinopril 10 MG 1 tablet Orally Once a day for 30 day(s) Not-Taking Mupirocin 2 % 1 application Externally Twice a day to any open cuts for 30 days 10/20/2024 Active Simvastatin 40 MG 1 tablet in the even ing Orally Once a day for 30 day(s) Active Warfarin Sodium 5 MG 1 tablet Orally Two times a Week for 30 day(s) Active Metoprolol Succinate ER 25 MG 1 tablet Orally Once a day for 30 day(s) Active Ammonium Lactate 12 % 1 application to affected area Externally Twice a day to dry areas of skin on feet for 30 days Active Ammonium Lactate 12 % 1 application Externally to affected areas of dry skin to feet except for between the toes Twice a day for 30 days Active Multivitamin Active Ibuprofen 800 MG 1 tablet every Orall y Three times a day for 14 days 07/04/2015 Not-Taking Fish Oil 1200 MG 1 capsule Orally [...] Signs Height 6 ft 3 in in 11/20/2024 Weight 215 lbs 11/20/2024 BMI 26.87 kg/m2 11/20/2024 Blood pressure systolic 115 mm Hg 11/21/19 25 Blood pressure diastolic 76 mm Hg 025 Encounters Encounter Location Date Provider Diagnosis [facility] [address] [address] 11/20/2024 Anuradha Hermosillo Ischemic ulcer of le ft heel, limited to breakdown of skin L97.421 ; Xerosis of skin L85.3 ; Unspecified atherosclerosis of [place] arteries of extremities, bilateral legs I70.203 ; Other hammer toe(s) (acquired), left foot M20.42 and Other hammer toe(s) (acquired), right foot M20.41 Assessments Encounter Date Diagnosis (ICD Code) Assessment Notes Treatment Notes Treatment Clinical Notes Section Notes 11/20/2024 Ischemic ulcer of left heel, limited to breakdown of skin (ICD-10 - L97.421) Patient Educated with: WOUND CARE INSTRUCTIONS. pdf (WOUND CARE INSTRUCTIONS. pdf) 11/20/2024 Xerosis of skin (ICD-10 - L85.3) 11/20/2024 Unspecified atherosclerosis of [place] arteries of extremities, bilateral legs (ICD-10 - I70.203) 11/20/2024 Other hammer toe(s) (acquired), left foot (ICD-10 - M20.42) 11/20/2024 Other hammer toe(s) (acquired), right foot (ICD-10 - M20.41) Plan Of Treatment Treatment Notes Assessment Notes Ischemic ulcer of left heel, limited to breakdown of skin Patient Educated with: WOUND CARE INSTRUCTIONS.pdf (WOUND CARE INSTRUCTIONS.pdf) Next Appt Details Follow Up: 4 Weeks, Reason: Provider Name:Anuradha amado, 12/22/2024 03:15:00 PM, [address] [place] [address], [id number], Procedure Notes * Category Sub-Category Detail Notes Debride skin< 25 sq cm Open wound ISCHEMIC: Physician of record performed open wound selective debridement of first 25 sq cm or less, of devitilized necrotic/nonviable soft tissue, fibrin, and exudate extending from the epidermis through the dermis, utilizing sharp dissection with sterile 15 blade, and/or tissue nippers. Sterile antibiotic dressing applied, ANESTHESIA was DEFERRED, Pt tolerant to pain, Hemostasis was achieved through direct pressure. Post debridement measurements: 4mm x 2mm x 2mm. (Left) Character of the wound post debridement is stable ([address]), The patient was instructed on importance of proper wound care consisting of pressure reduction, maintainance of moist wound environment, and regular debridement of devitilized tissue, The patient is to cleanse the wound with warm soapy water/peroxide/saline or betadine BID based on product availability, The patient is to apply Antibiotic Oint. to the wound and cover with a DSD, The patient was instructed to change dressings according to orders or PRN saturation, leaks, The patient was instructed to monitor and report any signs or symptoms of infection or any untoward reactions, The patient is to cont the local wound care as directed till condition is completely healed Progress Notes * Vladimir FLYNNDOB:1940 (84 yo M)Acc No.[id number]:11/20/2024 Progress Note Patient:?SARAVANAN Vladimir Provider:?Anuradha Hermosillo DPM :1940???Age:84 Y???Sex:Male Deshaun e:11/20/2024 Address:[address] [place], [place] [id number] Pcp:Kirk Randle MD Subjective: * Chief Complaints: * ???Open soreSkin problem(s) * HPI: ???Skin problems:?Nature:?dryness , scaling.?Location:?B/L .?Duration:?several weeks.?Onset/Cause:?gradual, insidious.?Course:?, improved.?Treatments:?medication ( AM Lactin? and Mupiricin).? * ROS:?General/Constitutional:?Nausea?denies.?Vomiting?denies.?Hunger Thirst?denies.?Loss appetite?denies.?Chills?denies.?Fatigue?denies.?Fever?denies.?Night Sweats?denies.?Unexplained weight loss?denies.?Ophthalmologic:?Blurred [...] 07/28/2015Right Total Knee Replacement 10/06/2018Left amputation, toe 2Pick-line iv antiboitics 06/2022 * Hospitalization/Major Diagno stic Procedure:?[facility] [place] passed out for two seconds, lab work was done everything came out fine. 04[facility] 01/22/2017C- fell on [...] than smoking?Are you an other tobacco user??No ???Miscellaneous:?Caffeine: no, none. ?Children: no. ?Exercise: yes, golf, cardio at gym, isometric workouts 6 days a week. ?Marital status: single. ?Occupation: retired [employer]. * Medications:?TakingAspirin 8 1 MG Tablet Delayed [...] to dry areas of skin on feet Ammonium Lactate 12 % Cream 1 application Externally to affected areas of dry skin to feet except for between the toes Twice a day Mupirocin 2 % Ointment 1 application Externally Twice a day to any open cuts Taking Aspirin 81 MG Tablet Delayed Release [...] dry areas of skin on feet Taking Ammonium Lactate 12 % Cream 1 application Externally to affected areas of dry skin to feet except for between the toes Twice a day Taking Mupirocin 2 % Ointment 1 application Externally Twice a day to any open cuts Not-Taking/PRNGym Note . . . . Medical [...] has been disabled from 07/27/15 thru 09/16/15 Not-Taking/PRN Lisinopril 10 MG Tablet 1 tablet Orally [...] 15, BMI: 26.87, Shoe size: 13, BP: 115/76 mm Hg, Wt- k.52 kg. * Examination: ???Dermatologic: ?SKIN FINDINGS:?Skin STILL, shows sign(s) of, dryness, scaling, in a stocking fashion ,with fissure(s) present, B/L heels; no signs of infection B/L feet.?ULCER:?LOCATION, plantar?LEFT heel , SIZE, 3mm X 2 mm X 2mm, BASE, granular, RIM, hyperkeratotic, UNDERMINING, absent, TRACKING, Full thickness breakdown of skin, DRAINAGE, serosanguineous, mild, NECROTIC TISSUE, loosely-adherent, yellow slough, MALODOR, absent, CALOR, absent, ERYTHEMA, absent, PAIN ON PALPATION, present.?Vascular: ?DP PULSES (B):? 0/4, B/L.?PT PULSES (B):? 0/4, B/L.?CAPILLARY FILL TIME:?delayed, all digits, B/L.?TROPHIC CONDITION-TEXTURE/ELASTICITY/TURGOR/HAIR GROWTH (B):?fragile, thin, shiny skin, with sparse to absent hair growth.?TEMPERTURE GRADIENT (C):?decreased, cool to cool, proximal to distal, B/L.?PIGMENTATION:?rubrous [...] or to push-up test, no over, nor underlapping.?General Examination: ?GENERAL APPEARANCE:?Reveals a pleasant, alert, well nourished, well developed, well hydrated individual, who demonstrates proper attention to hygene/body habitus, and is in no acute distress.?ORIENTED:?person, place, and time.? Assessment: * Assessment: 1.?Xerosis of skin - L85.3 ( Primary)???Specify :Acute problem, Uncomplicated (3),Rx Management (4)???2.?Ischemic ulcer of left heel, limited to breakdown of skin - L97.421? ?3.?Unspecified atherosclerosis of [place] arteries of extremities, bilateral legs - I70.203???4.?Other hammer toe(s) (acquired), left foot - M20.42???5.?Other hammer toe(s) (acquired), right foot - M20.41??? Plan: * Treatment: * Procedures:?Debride skin< 25 sq cm:?Open wound?ISCHEMIC: Physician of record performed open wound selective debridement of first 25 sq cm or less, of devitilized necrotic/nonviable soft tissue, fibrin, and exudate extending from the epidermis through the dermis, utilizing sharp dissection with sterile 15 blade, and/or tissue nippers. Sterile antibiotic dressing applied, ANESTHESIA was DEFERRED, Pt tolerant to pain, Hemostasis was achieved through direct pressure. Post debridement measurements: 4mm x 2mm x 2mm. (Left) Character of the wound post debridement is stable ([address]), The patient was instructed on importance of proper wound care consisting of pressure reduction, maintainance of moist wound environment, and regular debridement of devitilized tissue, The patient is to cleanse the wound with warm soapy water/peroxide/saline or betadine BID based on product availability, The patient is to apply Antibiotic Oint. to the wound and cover with a DSD, The patient was instructed to change dressings according to orders or PRN saturation, leaks, The patient was instructed to monitor and report any signs or symptoms of infection or any untoward reactions, The patient is to cont the local wound care as directed till condition is completely healed.? * Procedure Codes:?18161 ACTIV E WOUND CARE/20 CM OR <, Modifiers: XS * Preventive Medicine:? ??Counseling:?Discussion:?-13: Office or other [...] have encouraged the patient to call the office.?Ulcer:?A detailed plan of care was reviewed with the patient. We emphasized the fact that the patient takes on an active participating role in the treatment process and emphasized to them that they are an included, valued, and important member of the wound healing team in order to reach an expedient successful outcome. The patient agreed to follow their medically recommended diet while increasing their protein intake if safely able to do so, maintain proper bodily hydaration, abide by weight-bearing restrictions at all times, quit all current smoking habits if any, and diligently follow any/all dressing change instructions. It was clearly made known to the patient that if they fail to do their part, they will likely extend their course of treatment as well as possibly increase their risk of adverse events including amputation. The patient was instructed on importance of proper wound care consisting of pressure reduction, and proper maintainance of a moist wound environment. The patient is to cleanse the wound with warm soapy water/peroxide/saline, or betadine BID based on product availability. The patient is to apply ( Mupiricin ) Antibiotic to the wound and cover with a DSD as directed. The patient was instructed to change dressings according to orders, or PRN saturation, leaks. The patient was instructed to monitor and report any signs or symptoms of infection or any untoward reactions. Precautions Taken: Offloading/Pressure reduction via rest/ limited activity to essential to daily life only, cane/ crutches/ walker/ knee scooter/ wheel chair, shoe modification, accommodative padding, sharp debridement, and take/apply medication as directed. THE GOALS of wound debridement to remove devitilized tissue, decrease risk for infection, promote wound healing and prevent further complication were discussed/reviewed. Debridement frequency as indicated, PREVENTIVE STRATEGIES were reviewed with the patient to avoid recurrent ulceration. A set of verbal and written instructions regarding proper daily diabetic footcare techniques was discussed and dispensed. The patient is to pay close attention to skin hydration by maintaining proper moisturization through correct water consumption and consistent application of skin lotions/creams/ointments. They are also to perform regular visual and tactile foot inspections for any interruption in skin integrity including cracks, open lesions, and immediately report to the office any sign of infection such as redness/malodor/drainage/swelling. We discussed and recommended practices and procedures regarding regular shoe and insert evaluations for the presence of foreign bodies as well as for any irregular shoe or insert wear. We reinforced the importance for the patient to adhere to wearing their orthopedic shoes and pressure accommodative innersoles whenever walking. We stressed the significant value for the patient to remain consistent concerning their medically prescribed diet, participate in regular nonweight-bearing exercise (seated weights, exercise bike, or swimming), and keep their scheduled at risk foot care podiatric appointments. We also reviewed the possible role for additional Rx foot/leg bracing or surgical intervention when/if medically warranted.?Xerosis:?Given recent successful results to treatment, The patient is to cont the rx cream as directed.? ??Screening/Special Tests:?Fall Risk?Screening:?No falls in the past year ?FALLS: Screening for Future Fall Risk?Have you had any falls with injury in the past year??No * Follow Up:?4 Weeks * Images: * Sign off status: Completed true * Provider:?Anuradha Hermosillo DPM Date:? Generated for Jaelyn de la cruz/Armond/Myron on:?12/08/2024 11:23 AM EDT History and Physical Notes * HPI (History of Present Illness) Category Sub-Category Detail Notes Category Not es Skin problems Nature: dryness , scaling Location: B/L Duration: several weeks Onset/Cause: gradual, insidious Course: , improved Treatments: medication ( AM Lact in and Mupiricin) Examination Category Sub-Category Detail Notes Category Not es Neurological SENSORY: Neurological exa m reveals intact sensorium, pain sensation normal, vibration sensation intact, pinprick sensation is normal in the lower extremities, Pt denies, anesthesia, burning, paresthesia, tingling, B/L Dermatologic SKIN FINDINGS: Skin STILL, show s sign(s) of, dryness, scaling, in a stocking fashion ,with fissure(s) present, B/L heels; no signs of infection B/L feet ULCER: LOCATION, plantar LE FT heel , SIZE, 3mm X 2 mm X 2mm, BASE, granular, RIM, hyperkeratotic, UNDERMINING, absent, TRACKING, Full thickness breakdown of skin, DRAINAGE, serosanguineous, mild, NECROTIC TISSUE, loosely-adherent, yellow slough, MALODOR, absent, CALOR, absent, ERYTHEMA, absent, PAIN ON PALPATION, present Orthopedic DIGITAL DEFORMITIES: Amputation t4, T9, Digital contracture, PIPJ, 2- 4 B/L, non-reducible with WB or to push-up test, no over, nor underlapping MUSCLE STRENGTH: 5/5 all groups in a symmetrical fashion , B/L General Examination GENERAL APPEARANCE: Reveals a pleasant, alert, well nourished, well developed, well hydrated individual, who demonstrates proper attention to hygene/body habitus, and is in no acute distress ORIENTED: person, place, and t [place] V[facility] DP PULSES (B): 0/4, B/L PT PULSES (B): 0/4, B/L CAPILLARY FILL TIME: delayed, all digits , B/L TEMPERTURE GRADIENT (C): decreased, cool to cool, proximal to distal, B/L TROPHIC CONDITION-TEXTURE/ELASTICITY/TURGOR/HAIR GROWTH (B): fragile, thin, shiny skin, with sparse t o absent hair growth PIGMENTATION: rubrous , Right
--- OUTSIDE RECORDS SUMMARY | 2024-12-08 11:24 | XMS_ITS | Encounter Summary ---
Author Organization [facility] Address [address] [place] [address] Care Team Providers Care Automatic Stacker Name Role Phone Ced Victoria MD Unavailable [phone] Virgie Trivedi NP Unavailable [phone] Kirk Randle MD Primary Care Provider [phone] Alana Celaya NP Unavailable [phone] Encounter Details Date Type Department Care Team Description 02/12/2022 Box Hinge And Lock Attacher Report Medical Records [address] [place] [id number] [place] [address] Social History Tobacco Use Types Packs/Day Years [...] on filedocumented in this encounter Care Teams Automatic Stacker Relationship Specialty Start Date End Date Kirk Randle MD [address] [place] [address] [address]IVE [address] [place] [address] PCP - General Internal Medicine 06/05/21 Ced Victoria MD [address] [place] [address] [address] [place] [address] Fourdrinier Wire Weaver Cardiovascular Disease 04/05/21 Virgie Trivedi NP [address] [place] [address] [address] [place] [address] Nurse Practitioner Cardiology 04/05/21 Alana Celaya NP [address] [place] [address] [facility] [place] [address] Nurse Practitioner Cardiology 07/17/23 documented as of this encounter
--- OUTSIDE RECORDS SUMMARY | 2024-12-08 11:24 | XMS_ITS | Encounter Summary ---
Author Organization [facility] Address [address] [place] [address] Care Team Providers Care Metal Lather Name Role Phone Kirk Randle MD Primary Care Provider [phone] Ced Victoria MD Unavailable [phone] Virgie Trivedi CAN TECHNICIAN Unavailable [phone] Kirk Randle MD Primary Care Provider [phone] Alana Celaya CAN TECHNICIAN Unavailable [phone] Encounter Details Date Type Department Care Team Description 04/29/2021 SCAN Medical Records [address] [place] [id number] Abstract, Provider Social History Tobacco Use Types [...] on filedocumented in this encounter Care Teams Metal Lather Relationship Specialty Start Date End Date Kirk Randle MD PCP - General Internal Medicine 07/12/20 06/04/21 Kirk Randle MD PCP - General Internal Medicine 06/05/21 Ced Victoria MD [address] [place] [address] [address]IVE [address] [place] [address] Magnet Maker Cardiovascular Disease 04/05/21 Virgie Trivedi NP [address] [place] [address] [address]IVE [address] [place] [address] Nurse Practitioner Cardiology 04/05/21 Alana Celaya NP [address] [place] [address] Dr [facility] [place] [address] Nurse Practitioner Cardiology 07/17/23 documented as of this encounter
--- OUTSIDE RECORDS SUMMARY | 2024-12-08 11:24 | XMS_ITS | Encounter Summary ---
Author Organization [facility] Address [address] [place] [address] Care Team Providers Care Collet Maker Name Role Phone Kirk Randle MD Primary Care Provider [phone] Ced Victoria MD Unavailable [phone] Virgie Trivedi CLOTH FINISHER Unavailable [phone] Kirk Randle MD Primary Care Provider [phone] Alana Celaya CLOTH FINISHER Unavailable [phone] Encounter Details Date Type Department Care Team Description 05/04/2021 Hospital Medical Records [address] [place] [address] Elyssa Randall PA-C Social History Tobacco Use [...] on filedocumented in this encounter Care Teams Collet Maker Relationship Specialty Start Date End Date Kirk Randle MD PCP - General Internal Medicine 07/12/20 06/04/21 Kirk Randle MD PCP - General Internal Medicine 06/05/21 Ced Victoria MD [address] [place] [address] [address] [place] [address] E Commerce Marketing Manager Cardiovascular Disease 04/05/21 Virgie Trivedi NP [address] [place] [address] [address] [place], [place] [phone] Nurse Practitioner Cardiology 04/05/21 Alana Celaya NP [address] [place] [address] Dr [facility] [place] [place] [address] Nurse Practitioner Cardiology 07/17/23 documented as of this encounter
--- OUTSIDE RECORDS SUMMARY | 2024-12-08 11:24 | XMS_ITS | Encounter Summary ---
Author Organization [facility] Address [address] [place] [address] Care Team Providers Care Warehouse Director Name Role Phone Ced Victoria MD Unavailable [phone] Virgie Trivedi NP Unavailable [phone] Kirk Randle MD Primary Care Provider [phone] Alana Celaya NP Unavailable [phone] Encounter Details Date Type Department Care Team Description 07/16/2022 Home Health Certification Medical Records [address] [place] [address] Social History Tobacco Use Types Packs/Day Years [...] on filedocumented in this encounter Care Teams Warehouse Director Relationship Specialty Start Date End Date Kirk Randle MD [address] [place] [address] [address] [place], [place] [id number] PCP - General Internal Medicine 06/05/21 Ced Victoria MD [address] [place] [address] [address] [place] [address] Vmware Administrator Cardiovascular Disease 04/05/21 Virgie Trivedi NP [address] [place] [address] [address] [place] [address] Nurse Practitioner Cardiology 04/05/21 Alana Celaya NP [address] [place] [address] [facility] [place] [address] Nurse Practitioner Cardiology 07/17/23 documented as of this encounter
--- OUTSIDE RECORDS SUMMARY | 2024-12-08 11:24 | XMS_ITS | Encounter Summary ---
Author Organization [facility] Address [address] [place] [address] Care Team Providers Care Gas Processing Plant Operator Name Role Phone Ced Victoria MD Unavailable [phone] Virgie Trivedi NP Unavailable [phone] Kirk Randle MD Primary Care Provider [phone] Alana Celaya NP Unavailable [phone] Encounter Details Date Type Department Care Team Description 11/25/2023 Home Health Certification Medical Records [address] [place] [address] Social History Tobacco Use Types Packs/Day Years [...] on filedocumented in this encounter Care Teams Gas Processing Plant Operator Relationship Specialty Start Date End Date Kirk Randle MD [address] [place] [address] [address] [place] [address] PCP - General Internal Medicine 06/05/21 Ced Victoria MD [address] [place] [address] [address] [place] [address] Mold Maker Plastic Molds Cardiovascular Disease 04/05/21 Virgie Trivedi NP [address] [place] [address] [address] [place], [place] [id number] Nurse Practitioner Cardiology 04/05/21 Alana Celaya NP [address] [place] [address] [facility] [place] [address] Nurse Practitioner Cardiology 07/17/23 documented as of this encounter
--- OUTSIDE RECORDS SUMMARY | 2024-12-08 11:24 | XMS_ITS | Data Portability ---
Author Organization [facility], Main Office Address [address], [address] [place] [address] Care Team Providers Care Lens Coating Technician Name Role Phone BARI AMIN - 2ND FLOOR OTHER Assessment Encounter Date Assessment Date Assessment LastModified by Organization Details LastModified Time 05/23/2021 05/23/202105/23 wbc 7.2, hgb 13.6, plt 262, na 142, k 3.7, creat 0.8, sed rate 24, crp 3.76 [email or web address] Not available 05/23/2021 12:08:48 Plan of Treatment [...] By Organization Details Last Modified Time 05/23/2021 [id number] exam of pt, revi ew of chart, discussion with social work, interventional radiology 50 minutes Not available 05/23/2021 12:09:48 Reason for Referral None Reported. Problems Name Problem SNOMED Code Status Onset Date Resolution Date Notes Provider Name and Address Organization Details Recorded Time Infective endocarditi s 894270784 Active 2020 STACY SULLIVAN [address] [facility], [address], [place], [address], [facility] 08:27:08 Osteoarthri tis 920969078 Active 2020 STACY SULLIVAN [address] [facility], [address], [place], [address], [facility] 08:27:39 History of cerebrovasc ular accident 942161427 Active 2020 STACY SULLIVAN [address], [address], [place], [address], [facility] 08:28:06 Recurrent falls 350447095 Active 2020 STACY SULLIVAN [address], [address], [place], [address], [facility] 1 08:28:20 Pressure ulcer Active 2020 STACY SULLIVAN [address], [address], [place], [address], [facility] 1 08:30:05 Deep venous thrombosis of upper extremity 414907505 Active 2020 STACY SULLIVAN [address], [address], [place], [address], [facility] 1 08:30:52 Multinodula r goiter 602034726 Active 2020 STACY SULLIVAN [address], [address], [place], [address], [facility] 08:32:27 Hypomagnese ezequiel 588909444 Active 2020 STACY SULLIVAN [address], [address], [place], [address], [facility] 1 08:57:53 Asthenia 47017884 Active 2020 Rosenda ferro, [facility] 11:24:32 Osteoarthri tis of left knee joint 8586697874024 09 Active 2018 Feliz Gonzalez MD [address], [address], [place], [address], [facility] 9 15:05:21 Essential hypertensio n 36740153 Active 2018 Feliz Gonzalez MD [address], [address], [place], [address], [facility] 9 15:05:25 Mixed hyperlipide ezequiel 603738800 Active 2018 Feliz Gonzalez MD [address] [facility], [address], [place], [address], [facility] 15:05:33 Unsteady gait Active 2018 Feliz Gonzalez MD [address] [facility], [address], [place], [address], [facility] 15:05:38 Atrial fibrillatio n 65396677 Active 2018 STACY SLULIVAN [address] [facility], [address], [place], [address], [facility] 08:43:44 Problem Notes None recorded. Procedures Surgical History Date Name Laterality Status Provider Name and Address Organization Details Recorded Time percutaneous transluminal coronary angioplasty completed STACY SULLIVAN [address] [facility], [address], [place], [address], [facility] 05/05/2021 08:29:08 Imaging Results None recorded. Procedure Notes None recorded. Medical Equipment None Reported. Allergies Allergen ID Allergen Name Allergen Category Reaction Reaction Severity Criticality Documentation Date Start Date Code Code System Note Provider Name and Address Organization Details Recorded Time 01497 Plavix medicatio n rash severe Not available 10/13/2018 57394 2 RxNorm Not Available Not Available Not [...] % 145 mm[Hg] 73 mm[Hg] Rosenda bower [facility] 11:13:36 Date Recorded Heart rate Respiratory rate Body temperature Oxygen saturation Oxygen saturation in Arterial blood by Pulse oximetry Systolic blood pressure Diastolic blood pressure Provider Name and Address Organization Details Last Updated DateTime 1 73 /min 18 /min 97.4 [degF] 93 % 93 % 129 mm[Hg] 89 mm[Hg] HERMINIA DENSON NP [address] [facility], [address], [place], [address], [employer] [facility] 14:20:11 Date Recorded Body temperature Oxygen saturation Oxygen saturation in Arterial blood by Pulse oximetry Heart rate Respiratory rate Systolic blood pressure Diastolic blood pressure Provider Name and Address Organization Details Last Updated DateTime 96.6 [degF] 97 % 97 % 89 /min 18 /min 124 mm[Hg] 81 mm[Hg] STACY Weber [address] [facility], [address], [place], [address], [facility] 1 11:12:09 Date Recorded Systolic blood pressure Diastolic blood pressure Provider Name and Address Organization Details Last Updated DateTime 05/10/2021 124 mm[Hg] 65 mm[Hg] Feliz Gonzalez MD [address] [facility], [address], [place], [address], [employer] [facility] 05/10/2021 12:55:10 Date Recorded Systolic blood pressure Diastolic blood pressure Provider Name and Address Organization Details Last Updated DateTime 05/17/2021 104 mm[Hg] 74 mm[Hg] Feliz Gonzalez MD [address] [facility], [address], [place], [address], [employer] [facility] 05/17/2021 15:20:50 Social History Question Answer Notes LastModified by Organizat ion Details LastModified Time Tobacco Smoking Status Never Smoker Not Available [facility] 07/05/2020 03:13:23 Do You Have An Advance Directive? Yes FULL CODE/use Dialysis/unde cided About Nutrition/use Hydration Information not available 05/05/2021 What Is Your Level Of Alcohol Consumption? Occasional [id number] Information not available 07/05/2020 What Is Your Code Status? Full Code Information not available 05/05/2021 Legal Guardian? No Information not available 05/05/2021 Do You Have A Medical Power Of Artist Suspect? Yes HCP On File Information not available 05/05/2021 Do You Feel Stressed (tense, Restless, Nervous, Or Anxious, Or Unable To Sleep At Night)? [id number] Information not available 05/05/2021 Has Tobacco Cessation [...] mcg/0.25mL dose 10/11/2020 completed STACY SULLIVAN [address] [facility], [address], [place], [address], [facility] 05/05/2021 11:09:25 COVID-19, mRNA, LNP-S, PF, 100 mcg/0.5mL dose or 50 mcg/0.25mL dose 11/08/2020 completed STACY SULLIVAN [address] [facility], [address], [place], [address], [facility] 05/05/2021 11:09:40 influenza, unspecified formulation 09/08/2018 completed Marah Wise [facility] 12/19/2018 15:12:21 Past Encounters Encounter ID Performer Location Encounter Start Date Encounter Closed Date Diagnosis/Indication Diagnosis SNOMED-CT Code Diagnosis ICD10 Code Diagnosis Note [id number] Feliz Gonzalez MD [address] [address] 10/10/2018 14:54:06 10/28/2018 16:15:02 Osteoarthritis of left knee joint 0382977721 82776 M17.12 end stage OA now s/p TKR leftfollow ortho recsPT OT eval and treatmonit or for pain control and constipati onmonitor and adjust coumadin for DVT prophylaxi sgiven sub-therap utic INR will add lovenox 40 mg sc qd till theraputic Essential hypertension 79713202 I10 metoprolol 25 mg qdmonitor bp Mixed hyperlipidemia 267 666685 E78.2 simvastati n 40 mg qdcontinue Unsteady gait 645583668 R26.81 PT OT eval and treat [id number] YOHAN KOLOSKI, MEDICAL DEVICE ENGINEER [facility] [address] [place] [address] 10/13/2018 08:02:37 10/28/2018 16:16:29 Osteoarthritis of left knee joint 1874897869 89640 M17.12 follow ortho recsmonito r and adjust coumadinlo venox 40 mg sc qd till theraputic follow up with ortho and PCP Essential hypertension 20296375 I10 metoprolol 25 mg qdfollow up with PCP Mixed hyperlipidemia 267 365267 E78.2 simvastati n 40 mg qdfollow up with PCP Unsteady gait 965224353 R26.81 follow up with PCP Atrial fibrillation 4943 6004 I48.2 coumadin therapymon itor INRscontin ue lovenox til over 2follow up with cardiology and PCP [id number] STACY SULLIVAN [facility] [address] [place] [address] 05/05/2021 08:21:13 05/10/2021 15:30:51 Infective endocarditis 192396286 I33.0 nafcillin 2 gm IV q 4 hrs with stop date of 05/22/21pro biotic bidPICC line monitoring monitor labs Osteoarthritis 594947144 M15.0 tylenol 650 mg q 4 hrs prnmonitor pain Mixed hyperlipidemia 267 490249 E78.2 simvastati n 20 mg qdmonitor labs Essential hypertension 46394381 I10 metoprolol tartrate 25 mg bidlasix 20 mg qdklor con 20 meq qdmonitor b/p and labs Atrial fibrillation 4943 6004 I48.19 metoprolol tartrate 25 mg bidcoumadi n therapymon itor INRs History of cerebrovascular accident 181045648 Z86.73 metoprolol tartrate 25 mg bidcoumadi n therapyato rvastatin 20 mg qdmonitor Recurrent falls 08295276 2 R29.6 PT/OT eval and treatmonit or for safety Pressure ulcer 296614216 L89.90 multivitam in with mineralsvi tamin C 500 mg qdwound care as orderedmon itor frequently use pressure relief devices Deep venou s thrombosis of upper extremity 848930313 I82.621 coumadin therapymon itor INRs Multinodular goiter 2375 03927 E04.2 noted in historymon itor Hypomagnesemia 606707962 E83.42 magnesium 400 mg qdmonitor labs [id number] STACY SULLIVAN [facility] [address] [address] 05/08/2021 10:39:43 05/11/2021 08:35:04 Infective endocarditis 183681868 I33.0 nafcillin 2 gm IV q 4 hrs with stop date of 05/22/21pro biotic bidPICC line monitoring monitor labs Atrial fibrillation 4943 6004 I48.19 metoprolol tartrate 25 mg bidcoumadi n therapymon itor INRs Essential hypertension 01815818 I10 metoprolol tartrate 25 mg bidlasix 20 mg qdklor con 20 meq qdmonitor b/p and labs [id number] Feliz Gonzalez MD [facility] [address] [address] 05/10/2021 12:53:56 05/17/2021 15:11:21 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 see HPI and above Infective endocarditis 940673884 I33.0 see HPIcontinu ed on nafcillin 2 gm q 4 hours through 05/22add probioticm onitor cbcupdate ID with concerns Pressure ulcer 292667615 L89.90 see wound care notesconti nue treatment Deep venou s thrombosis of upper extremity 556625318 I82.621 RUE DVTlovenox now bridged to coumadinmo nitor INR and titrate dose Osteoarthritis 316379586 M15.0 known at baselinemo nitor for sx controltit rate meds prn Mixed hyperlipidemia 267 364372 E78.2 simvastati n 20 mg qdcontinue d Essential hypertension 44218888 I10 metoprolol 25 mg bidlasix 20 mg qdmonitor bp and need to titrate meds Atrial fibrillation 4943 6004 I48.19 carrying dxmetoprol ol 25 mg bidtitrate coumadin dosemonito r for rate control Recurrent falls 53872879 2 R29.6 PT OT eval and treatmonit or fall risk Asthenia 85168545 R53.1 highly motivated to gain strength and return home [id number] Rosenda Mcgill [facility] [address] [address] 05/11/2021 11:11:13 05/17/2021 15:26:07 Asthenia 35677705 R53.1 pt with fall this amfell from bed to floorno apparent injuriessa fety precaution sPT/OT eval and tx [id number] Feliz Gonzalez MD [facility] [address] [address] 05/17/2021 15:20:07 05/19/2021 15:47:47 Infective endocarditis 538824251 I33.0 nafcillin 2 gm q 4 hours through 05/22 to complete coursemoni tor cbcupdate ID with concernsgo al is discharge on 05/23 Bacterial arthritis 4824 5008 M00.88 see HPI and above Deep venou s thrombosis of upper extremity 208341735 I82.621 RUE DVTmonitor INR and titrate dose Asthenia 14516029 R53.1 improving with therapymov ing towards discharge [id number] HERMINIA DENSON NP [facility] [address] [address] 05/18/2021 14:18:12 05/22/2021 14:35:55 Infective endocarditis 992035646 I33.0 nafcillin 2 gm q 4 hours through 05/22 to complete coursemoni tor cbc - stableupda te ID with caroline al is discharge on 05/23Nsg. working on appt. for IV line removal Bacterial arthritis 4824 5008 M00.88 see HPI and above Deep venou s thrombosis of upper extremity 079644554 I82.621 RUE DVTmonitor INR and titrate dose Asthenia 26931668 R53.1 improving with therapymov ing towards discharge Atrial fibrillation 4943 6004 I48.19 [id number] STACY Weber [facility] [address] [address] 05/23/2021 11:10:46 05/25/2021 11:25:14 Infective endocarditis 367330520 I33.0 ok to dc home with meds and VNA services todayfinis hed nafcillin 2 gm q 4 hours through 05/22pt will not need to have central line flushed daily as [facility]. [facility] where he is having it removedf/u cardiologi st on 05/31f/u with pcp as out pt Bacterial arthritis 4824 5008 M00.88 as above Pressure ulcer 275570749 L89.90 will be followed by [facility] Deep venou s thrombosis of upper extremity 860724370 I82.621 RUE DVTcoumadi n therapeuti cwill have [facility] draw next PT/INR when he is admitted to their service with results sent to PCP Mixed hyperlipidemia 267 055838 E78.2 atorvastat in 20 mg qdf/u pcp Essential hypertension 05235015 I10 metoprolol 25 mg bidlasix 20 mg [...] Flores Member ID Guarantor Name 05/10/2021 1 [facility] - MEDICARE PREFERRED (MEDICARE REPLACEMENT HMO) ALLIE Vladimir Flynn [id number] Vladimir Flynn 05/11/2021 1 [facility] - MEDICARE PREFERRED (MEDICARE REPLACEMENT HMO) [facility] Vladimir Flynn [id number] Vladimir Flynn 05/17/2021 1 [facility] - MEDICARE PREFERRED (MEDICARE REPLACEMENT HMO) ALLIE Vladimir Flynn [id number] Vladimir Flynn 05/18/2021 1 [facility] - MEDICARE PREFERRED (MEDICARE REPLACEMENT HMO) MJ Flynn [id number] Vladimir Flynn 05/23/2021 1 [facility] - MEDICARE PREFERRED (MEDICARE REPLACEMENT HMO) ALLIE Vladimir Flynn [id number] Vladimir Flynn Notes Date Note Type Note [...] care and therapy Feliz Gonzalez MD [address] [facility], [address], [place], [address], [employer] [facility] 05/10/2021 13:19:34 05/11/2021 text/html Pt being seen [...] daily and recheck INR Saturday. Rosenda ferro, [facility] 05/11/2021 12:15:08 05/17/2021 text/html Patient is a 81 yo male resident seen for acute rounding. Completing Ab for endocarditis with potential discharge date of 05/23. Patient on coumadin for a fib with dose adjusted today. Strength and conditioning improving with therapy Feliz Gonzalez MD [address] [facility], [address], [place], [address], [facility] 05/17/2021 15:26:05 05/18/2021 text/html Vladimir is seen to day for an acute visit.Alert, pleasant, NAD. Uvaldo. abx. tx. well, goal home next tu. when IV abx. completed.Feels well, no c/o.Working with rehab - good progress. HERMINIA DENSON NP [address] [facility], [address], [place], [address], [facility] 05/18/2021 15:00:40 05/23/2021 text/html pt seen today fo r discharge summary. Patient presented to [facility] er from [place] (where he had been sent after [address] [facility] for rehab) with fever, hypotension [...] are resolving. was sent from there to [facility] for acute [...] no concerns per nursing. STACY Weber [address] [facility], [address], [place], [address], [facility] 05/23/2021 12:09:56
--- OUTSIDE RECORDS SUMMARY | 2024-12-08 11:24 | XMS_ITS | Encounter Summary ---
Author Organization [facility] Address [address] [place] [address] Care Team Providers Care Physical Chemist Name Role Phone Ced Victoria MD Unavailable [phone] Virgie Trivedi NP Unavailable [phone] Kirk Randle MD Primary Care Provider [phone] Alana Celaya NP Unavailable [phone] Encounter Details Date Type Department Care Team Description 01/29/2022 Immunologist Report Medical Records [address] [place] [id number] [place] [address] Social History Tobacco Use Types Packs/Day Years [...] on filedocumented in this encounter Care Teams Physical Chemist Relationship Specialty Start Date End Date Kirk Randle MD [address] [place] [address] [address] [place] [address] PCP - General Internal Medicine 06/05/21 Ced Victoria MD [address] [place] [address] DRIVE [address] [place] [address] Coastal/Harbor Defense Officer Cardiovascular Disease 04/05/21 Virgie Trivedi NP [address] [place] [address] [address]IVE [address] [place] [address] Nurse Practitioner Cardiology 04/05/21 Alana Celaya NP [address] [place] [address] [facility] [place] [address] Nurse Practitioner Cardiology 07/17/23 documented as of this encounter
--- OUTSIDE RECORDS SUMMARY | 2024-12-08 11:24 | XMS_ITS | Encounter Summary ---
Author Organization [facility] Address [address] [place] [address] Care Team Providers Care Coin Machine Mechanic Name Role Phone Octavio Gross MD Primary Care Provider Unavaila Kathie Cordova PA-C Primary Care Provider + Kirk Randle MD Primary Care Provider [phone] Ced Victoria MD Unavailable [phone] Virgie Trivedi NP Unavailable [phone] Kirk Randle MD Primary Care Provider [phone] Alana Celaya NP Unavailable [phone] Encounter Details Date Type Department Care Team Description 05/28/2019 Orders Only Medical Records [address] [place] [address] Rogers Delong MD Social History Tobacco Use [...] on filedocumented in this encounter Care Teams Coin Machine Mechanic Relationship Specialty Start Date End Date Octavio Gross MD PCP - General Internal Medicine 05/19/18 02/22/20 Kathie Le PA-C PCP - General Internal Medicine 02/23/20 07/11/20 Kirk Randle MD PCP - General Internal Medicine 07/12/20 06/04/21 Kirk Randle MD PCP - General Internal Medicine 06/05/21 Ced Victoria MD [address] [place] [address] DR[address] [place] [phone] Hvac Specialist Cardiovascular Disease 04/05/21 Virgie Trivedi NP [address] [place] [address] DRIVE [address] [place] [address] Nurse Practitioner Cardiology 04/05/21 Alana Celaya NP [address] [place] [address] [facility] [place] [address] Nurse Practitioner Cardiology 07/17/23 documented as of this encounter
--- OUTSIDE RECORDS SUMMARY | 2024-12-08 11:24 | XMS_ITS | Encounter Summary ---
Author Organization [facility] Address [address] [place] [address] Care Team Providers Care Desktop Support Technician Name Role Phone Ced Victoria MD Unavailable [phone] Virgie Trivedi NP Unavailable [phone] Kirk Randle MD Primary Care Provider [phone] Alana Celaya NP Unavailable [phone] Reason for Visit * Reason Onset Date Comments Faxed Refill 08/28/2022 Encounter Details Date Type Department Care Team Description 08/28/2022 Refill Internal Medicine - [address], [address] [place] [address] Kirk Randle MD [address] [place] [address] Faxed Refill Social History Tobacco Use Types [...] like script to be: E-PRESCRIBED/FAXED TO PHARMACY ([facility] [address] [place] [phone]) When was the patients last office visit in Adult Medicine?: 08/01/22 When was the last time the patient saw their PCP? Same as above Does patient have an upcoming appointment? No (THE MEDICATION IS NOT ON THE MED LIST AND IS IDENTIFIED BELOW): {MED LIST:68035) Med name: KELLEYTOVEN tablet Dosage: 5 MG # of tablets: N/a Local pharmacy with request for 90 -day supply Instructions: Take one tablet by mouth per administration instructions. Did you check the pharmacy information above?: YES Patients current insurance carrier: Payor: [facility] / Plan: [employer] PREF HMO $[facility] / Product Type: MEDICARE RISK Insurance ID #: No Subscriber Number on File documented in this encounter Plan of Treatment Not on file documented as of this encounter Visit Diagnoses Not on filedocumented in this encounter Care Teams Desktop Support Technician Relationship Specialty Start Date End Date Kirk Randle MD [address] [place] [address] [place] [phone] PCP - General Internal Medicine 06/05/21 Ced Victoria MD [address] [place] [address] [address] [place] [address] Store Cashier Cardiovascular Disease 04/05/21 Virgie Trivedi NP [address] [place] [address] DRIVE [address] [place] [address] Nurse Practitioner Cardiology 04/05/21 Alana Celaya NP [address] [place] [address] [facility] [place] [address] Nurse Practitioner Cardiology 07/17/23 documented as of this encounter
--- OUTSIDE RECORDS SUMMARY | 2024-12-08 11:24 | XMS_ITS | Encounter Summary ---
Author Organization [facility] Address [address] [place] [address] Care Team Providers Care Network Security Architect Name Role Phone Ced Victoria MD Unavailable [phone] Virgie Trivedi NP Unavailable [phone] Kirk Randle MD Primary Care Provider [phone] Alana Celaya NP Unavailable [phone] Encounter Details Date Type Department Care Team Description 11/05/2023 Orders Only Medical Records [address] [place] [address] Raffy Gardner MD [address] [address] Social History Tobacco Use Types [...] on filedocumented in this encounter Care Teams Network Security Architect Relationship Specialty Start Date End Date Kirk Randle MD [address] [place] [address] [address] [place] [address] PCP - General Internal Medicine 06/05/21 Ced Victoria MD [address] [place] [address] DRIVE [address] [place] [address] Dancing Teacher Cardiovascular Disease 04/05/21 Virgie Trivedi NP [address] [place] [address] [address] [place] [address] Nurse Practitioner Cardiology 04/05/21 Alana Celaya NP [address] [place] [address] [facility] [place] [address] Nurse Practitioner Cardiology 07/17/23 documented as of this encounter
--- OUTSIDE RECORDS SUMMARY | 2024-12-08 11:24 | XMS_ITS | Encounter Summary ---
Author Organization [facility] Address [address] [place] [address] Care Team Providers Care Registered Nurse First Assistant Name Role Phone Kathie Le PA-C Primary Care Provider + Kirk Randle MD Primary Care Provider [phone] Ced Victoria MD Unavailable [phone] Virgie Trivedi PARTS AND SERVICE MANAGER Unavailable [phone] Kirk Randle MD Primary Care Provider [phone] Alana Celaya PARTS AND SERVICE MANAGER Unavailable [phone] Encounter Details Date Type Department Care Team Description 04/29/2020 [facility] Medical Records [address] [place] [id number] Abstract, Provider Social History Tobacco Use Types [...] Date/Time Associated Diagnosis Comments OUTSIDE LAB Routine 04/29/2020 documented in this encounter Results * OUTSIDE LAB (04/29/2020) Provider Default LAB documented in this encounter Visit Diagnoses Not on filedocumented in this encounter Care Teams Registered Nurse First Assistant Relationship Specialty Start Date End Date Kathie Le PA-C PCP - General Internal Medicine 02/23/20 07/11/20 Kirk Randle MD PCP - General Internal Medicine 07/12/20 06/04/21 Kirk Randle MD PCP - General Internal Medicine 06/05/21 Ced Victoria MD [address] [place] [address] [address] [place] [address] Well Service Derrick Worker Cardiovascular Disease 04/05/21 Virgie Trivedi NP [address] [place] [address] [address] [place], [place] [phone] Nurse Practitioner Cardiology 04/05/21 Alana Celaya NP [address] [place] [address] [facility] [place], [place] [id number] Nurse Practitioner Cardiology 07/17/23 documented as of this encounter
--- OUTSIDE RECORDS SUMMARY | 2024-12-08 11:24 | XMS_ITS | Encounter Summary ---
Author Organization [facility] Address [address] [place] [address] Care Team Providers Care Inspector Set Up And Lay Out Name Role Phone Ced Victoria MD Unavailable [phone] Virgie Trivedi NP Unavailable [phone] Kirk Randle MD Primary Care Provider [phone] Alana Celaya NP Unavailable [phone] Reason for Visit * Reason Onset Date Comments Surgery (Schedule) 06/19/2021 [facility] Call 06/19/2021 Encounter Details Date Type Department Care Team Description 06/19/2021 Telephone Vascular Surgery - [address] [place] [phone] Josefina Aguilar, SOCIAL SCIENCE MANAGER [address] [place] [address] Surgery (Schedule); [facility]NA Call Social History Tobacco Use Types [...] encounter Miscellaneous Notes * Telephone Encounter - Doretha Click - 06/28/2021 1:48 PM EDT Debora from a called looking for information on procedure pt had yesterday she would like to know. * Telephone Encounter - Doretha Click - 06/22/2021 3:52 PM EDT No auth required per kyra at [facility] * Telephone Encounter - Doretha Click - 06/22/2021 12:50 PM EDT Prior auth submitted * Telephone Encounter - Doretha Click - 06/22/2021 9:39 AM EDT RN called for information regarding pt coumadin, would he have to bridged. Those are provider questions, spoke with provider rtn call will be placed once infoinformation has been obtained. * Telephone Encounter - Doretha Click - 06/21/2021 11:30 AM EDT Pt is fully aware of procedure date and time. Pt was provided information regarding his covid test and location . * Telephone Encounter - Doretha Click - 06/19/2021 11:30 AM EDT Call placed no vm. Looking to book for procedure . documented in this encounter Plan of Treatment Not on file documented as of this encounter Visit Diagnoses Not on filedocumented in this encounter Care Teams Inspector Set Up And Lay Out Relationship Specialty Start Date End Date Kirk Randle MD [address] [place] [address] [address] [place] [address] PCP - General Internal Medicine 06/05/21 Ced Victoria MD [address] [place] [address] [address] [place] [address] [employer]ation Cardiovascular Disease 04/05/21 Virgie Trivedi NP [address] [place] [address] [address] [place] [address] Nurse Practitioner Cardiology 04/05/21 Alana Celaya NP [address] [place] [address] [facility] [place] [address] Nurse Practitioner Cardiology 07/17/23 documented as of this encounter
--- OUTSIDE RECORDS SUMMARY | 2024-12-08 11:24 | XMS_ITS ---
Author Organization [facility] Care Team Providers Care Hosiery Mender Name Role Phone Parris Mckinley Unavailable Unavailable Sourav Wise Unavailable Unavailable Chel Hall Unavailable Unavailable Allergies and adverse reactions Code CodeSystem Substance Reaction Severity StartDate Concern Status 89220 RXNORM Clopidogrel Moderate 03/27/2021 active Care Team Name Role Address Phone Organization Haseeb Wise PCP [address], [address], [facility] (Office): [facility] 03/27/2021 - 04/01/2021 Parris Mckinley Attending Physician [address] [place] [address], [address], [place] (Office): [facility] 03/27/2021 - 04/01/2021 Chel Hall Attending Physician [address] [place] [address], [address], [facility] (Office): [facility] 03/27/2021 - 04/01/2021 Immunizations Immunization Status Vaccine Details Vaccine Code CodeSystem Deshaun e Notes SARS-COV-2 (COVID-19) completed SARS-COV-2 (COVID-19) vaccine, mRNA, spike protein, LNP, preservative free, 100 mcg/0.5mL dose or 50 mcg/0.25mL dose Mfg: Moderna Step 2 of Multi-step with next step required 207 CVX created date: 03/29/2021 administered date: 11/08/2020 SARS-COV-2 (COVID-19) completed SARS-COV-2 (COVID-19) vaccine, mRNA, spike protein, LNP, preservative free, 100 mcg/0.5mL dose or 50 mcg/0.25mL dose Mfg: Moderna Step 1 of Multi-step with next step required 207 CVX created date: 03/29/2021 administered date: 10/11/2020 Mental Status Section Date Assessment Total Score Description 04/01/2021 CAM 0 No delirium ind icated Problems Problem # Description Date of onset Resolved Date Code CodeSystem Concern Status 1 ABNORMAL LEVELS OF OTHER SERUM ENZYMES 03/27/[address] active 2 ATHEROSCLEROTIC HEART DISEASE OF [place] CORONARY ARTERY WITHOUT ANGINA PECTORIS 03/27/[address] active 3 COGNITIVE COMMUNICATION DEFICIT 03/27/[address] active 4 DIFFICULTY IN WALKING, NOT ELSEWHERE CLASSIFIED 03/27/[address] active 5 DIZZINESS AND GIDDINESS 03/27/[address] active 6 MUSCLE WEAKNESS (GENERALIZED) 03/27/[address] active 7 NONRHEUMATIC TRICUSPID (VALVE) INSUFFICIENCY 03/27/[address] active 8 NONTOXIC MULTINODULAR GOITER 03/27/[address] active 9 PERIPHERAL VASCULAR DISEASE, UNSPECIFIED 03/27/[address] active 10 PRIMARY OSTEOARTHRITIS, UNSPECIFIED SITE 03/27/[address] active 11 UNSPECIFIED ATRIAL FIBRILLATION 03/27/[address] active 12 UNSPECIFIED FALL, SEQUELA 03/27/[address] active Reason for Referral No Reasons for Referral Entered Social History Social History Observation Description Start Date End Date Code Code System Current Smoking Status Tobacco smoking consumption unknown 490682568 SNOMED CT Sex Assigned At Male 1940 49860-4 [facility] Vital Signs Code Code System Vitals Name Values and Units Timing Information 25719-8 [facility] Pain Level Value=0.0 04/03/2021 9279-1 [facility] Respiratory Rate Value=20.0 Units=/m in 04/01/2021 8462-4 [facility] Blood Pressure-Diastolic Value=42 Un its=mmHg 04/01/2021 8480-6 [facility] Blood Pressure-Systolic Value=78 Uni ts=mmHg 04/01/2021 8310-5 [facility] Body Temperature Nvjsh=131.9 Units=? ?F 04/01/2021 8867-4 [facility] Heart rate Value=83.0 Units=/min 79413-6 [facility] O2 % BldC Oximetry Value=92.0 Units= % 04/01/2021 8302-2 [facility] Height Value=74.0 Units=Inches 03/30/2021
--- OUTSIDE RECORDS SUMMARY | 2024-12-08 11:24 | XMS_ITS | Encounter Summary ---
Author Organization [facility] Address [address] [place] [address] Care Team Providers Care Leadite Heater Name Role Phone Kirk Randle MD Primary Care Provider [phone] Ced Victoria MD Unavailable [phone] Virgie Trivedi EXPERIMENTAL FLIGHT TEST MECHANIC Unavailable [phone] Kirk Randle MD Primary Care Provider [phone] Alana Celaya EXPERIMENTAL FLIGHT TEST MECHANIC Unavailable [phone] Encounter Details Date Type Department Care Team Description 05/08/2021 Hospital Medical Records [address] [place] [id number] [place] [address] Social History Tobacco Use Types Packs/Day Years [...] on filedocumented in this encounter Care Teams Leadite Heater Relationship Specialty Start Date End Date Kirk Randle MD PCP - General Internal Medicine 07/12/20 06/04/21 Kirk Randle MD PCP - General Internal Medicine 06/05/21 Ced Victoria MD [address] [place] [address] [address] [place], [place] [phone] Senior Qualitative Researcher Cardiovascular Disease 04/05/21 Virgie Trivedi NP [address] [place] [address] [address] [place], [place] [phone] Nurse Practitioner Cardiology 04/05/21 Alana Celaya NP [address] [place] [address] [facility] [place] [address] Nurse Practitioner Cardiology 07/17/23 documented as of this encounter
--- OUTSIDE RECORDS SUMMARY | 2024-12-08 11:24 | XMS_ITS | Encounter Summary ---
Author Organization [facility] Address [address] [place] [address] Care Team Providers Care Computer System Validation Specialist Name Role Phone Kirk Randle MD Primary Care Provider [phone] Ced Victoria MD Unavailable [phone] Virgie Trivedi TEXTILE CONVERSION MANAGER Unavailable [phone] Kirk Randle MD Primary Care Provider [phone] Alana Celaya TEXTILE CONVERSION MANAGER Unavailable [phone] Encounter Details Date Type Department Care Team Description 04/27/2021 [facility] Medical Records [address] [place] [address] Octavio Roman Social History Tobacco Use Types Packs/Day Years [...] Associated Diagnosis Comments OUTSIDE VASCULAR STUDY Routine 04/27/2021 documented in this encounter Results * OUTSIDE VASCULAR STUDY (04/27/2021) Provider Abstract CARDIOLOGY documented in this encounter Visit Diagnoses Not on filedocumented in this encounter Care Teams Computer System Validation Specialist Relationship Specialty Start Date End Date Kirk Randle MD PCP - General Internal Medicine 07/12/20 06/04/21 Kirk Randle MD PCP - General Internal Medicine 06/05/21 Ced Victoria MD [address] [place] [address] [address] [place] [address] Photographs Curator Cardiovascular Disease 04/05/21 Virgie Trivedi NP [address] [place] [address] [address] [place] [address] Nurse Practitioner Cardiology 04/05/21 Alana Celaya NP [address] [place] [address] [facility] [place], [place] [address] Nurse Practitioner Cardiology 07/17/23 documented as of this encounter
--- OUTSIDE RECORDS SUMMARY | 2024-12-08 11:24 | XMS_ITS | Encounter Summary ---
Author Organization [facility] Address [address] [place] [address] Care Team Providers Care Svp Name Role Phone Kirk Randle MD Primary Care Provider [phone] Ced Victoria MD Unavailable [phone] Virgie Trivedi ELOCUTION TEACHER Unavailable [phone] Kirk Randle MD Primary Care Provider [phone] Alana Celaya ELOCUTION TEACHER Unavailable [phone] Encounter Details Date Type Department Care Team Description 05/23/2021 [facility] Medical Records [address] [place] [address] Feliz Gonzalez Social History Tobacco Use Types [...] Date/Time Associated Diagnosis Comments OUTSIDE LAB Routine 05/23/2021 OUTSIDE LAB Routine 05/23/2021 documented in this encounter Results * OUTSIDE LAB (05/23/2021) Provider Default LAB * OUTSIDE LAB (05/23/2021) Provider Default LAB documented in this encounter Visit Diagnoses Not on filedocumented in this encounter Care Teams Svp Relationship Specialty Start Date End Date Kirk Randle MD PCP - General Internal Medicine 07/12/20 06/04/21 Kirk Randle MD PCP - General Internal Medicine 06/05/21 Ced Victoria MD [address] [place] [address] [address] [place] [address] Retail Gift Card Merchandising Cardiovascular Disease 04/05/21 Virgie Trivedi NP [address] [place] [address] [address] [place] [address] Nurse Practitioner Cardiology 04/05/21 Alana Celaya NP [address] [place] [address] [facility] [place] [address] Nurse Practitioner Cardiology 07/17/23 documented as of this encounter
--- OUTSIDE RECORDS SUMMARY | 2024-12-08 11:24 | XMS_ITS | Encounter Summary ---
Author Organization [facility] Address [address] [place] [address] Care Team Providers Care Sample Wrapper Name Role Phone Ced Victoria MD Unavailable [phone] Virgie Trivedi NP Unavailable [phone] Kirk Randle MD Primary Care Provider [phone] Alana Celaya NP Unavailable [phone] Reason for Referral * EXTERNAL (Routine) - Authorized/Booked Specialty Diagnoses / Procedures Referred By Contmigel t Referred To Contact Rheumatology Procedures REFERRAL TO RHEUMATOLOGY Kirk Randle MD [address] [place] [address] External Rheumatology Referral ID Status Reason Start Date Expiration Date V isits Requested Visits Authorized [id number] Authorized/B ooked 06/25/2022 09/27/2022 1 1 Reason for Visit * Reason Onset Date Comments Digital Archivist Feedback 04/23/2022 Svetlana parker Encounter Details Date Type Department Care Team Description 04/23/2022 Telephone Internal Medicine - [address], [address] [place] [address] Kirk Randle MD [address] [place] [address] Digital Archivist Feedback (Svetlana Yoon ) Social History Tobacco Use Types Packs/Day [...] suspected to have Coronavirus/COVID-19? No / Unsure 04/23/2022 9:20 AM EDT documented as of this encounter Miscellaneous Notes * Telephone Encounter - Ced Cisneros - 06/25/2022 2:[address] Bradley faxed order and notes on one of their patients, so they could be seen with our providers. Patient has been referred to Rheumatology DX: Patient is being seen for:??Multi Nodule Quarter, Diabetes INS: [facility] Please review this patients new referral request. The referral has been pended. Please complete thefollowing: If approved> sign order If denied>please give instructions and route to your practice nursing pool. Practice nurse should inform referrals and the patient if denied. Order is pended * Telephone Encounter - Shasha June - 06/04/2022 11:03 AM EDT Still waiting on referral date of appt was 04-17-2022 And referral was placed for authorization on 04-23-2022 * Telephone Encounter - Yesenia Cain - 04/23/2022 11:01 AM EDT Referral needs to be back dated ?? What insurance does the patient have today? [facility] ?? Effective 06/09/09: BS will not retro referral [...] insurance must be obtained and registered in [facility] or their referral can not be processed. ?? Is this a retro request? YES. ?? If yes for what date of service do you need the retro referral? 04/17/2022 ?? Who is calling to request this referral? Providers office [facility] ?? If the caller is not the patient, what is their name? N/A ?? Ask the patient WHO referred them to this specialty: Patient self referred ?? FIRST and LAST NAME of SPECIALIST PATIENT is seeing: Svetlana Yoon ?? What specialty is this? Rheum ?? DIAGNOSIS Patient is being seen for (Not a body part or a procedure): Multi Nodule Quarter, Diabetes ?? Have you seen this SPECIALIST for this PROBLEM/DX before?YES ?? If YES, when:na ?? Have you checked REVIEW or the APPT DESK to see if this referral has already been done or has visits left? NO ?? Is this visit:Follow Up ?? Address of Specialist:[address] [place] [address] ?? Phone # of Specialist:[phone] ?? Fax #: (if applicable):[phone] ?? Does patient have an appointment scheduled?: YES ?? Date of appointment- (including a retro-request): 10/2022 ?? Is this appointment related to: Not MVA, WC or Surgery related ?? documented in this encounter Plan of Treatment Not on file documented as of this encounter Visit Diagnoses Not on filedocumented in this encounter Care Teams Sample Wrapper Relationship Specialty Start Date End Date Kirk Randle MD [address] [place] [address] [address] [place] [address] PCP - General Internal Medicine 06/05/21 Ced Victoria MD [address] [place] [address] [address] [place] [address] Fumigator And Sterilizer Cardiovascular Disease 04/05/21 Virgie Trivedi NP [address] [place] [address] [address] [place] [address] Nurse Practitioner Cardiology 04/05/21 Alana Celaya NP [address] [place] [address] [facility] [place] [address] Nurse Practitioner Cardiology 07/17/23 documented as of this encounter
--- OUTSIDE RECORDS SUMMARY | 2024-12-08 11:24 | XMS_ITS | Encounter Summary ---
Author Organization [facility] Address [address] [place] [address] Care Team Providers Care Proof Machine Operator Name Role Phone Kirk Randle MD Primary Care Provider [phone] Ced Victoria MD Unavailable [phone] Virgie Trivedi MORTGAGE CLOSING CLERK Unavailable [phone] Kirk Randle MD Primary Care Provider [phone] Alana Celaya MORTGAGE CLOSING CLERK Unavailable [phone] Encounter Details Date Type Department Care Team Description 08/09/2020 Telephone Internal Medicine - [address], [address] [place], [place] [phone] Kirk Randle MD [address] [place], [place] [phone] Social History Tobacco Use Types Packs/Day Years [...] have Coronavirus / COVID-19? No / Unsure 07/18/2020 12:30 PM EST documented as of this encounter Plan of Treatment Not on file documented as of this encounter Visit Diagnoses Not on filedocumented in this encounter Care Teams Proof Machine Operator Relationship Specialty Start Date End Date Kirk Randle MD PCP - General Internal Medicine 07/12/20 06/04/21 Kirk Randle MD PCP - General Internal Medicine 06/05/21 Ced Victoria MD [address] [place] [address] [address] [place] [address] Fire Protection Engineer Cardiovascular Disease 04/05/21 Virgie Trivedi NP [address] [place] [address] [address] [place] [address] Nurse Practitioner Cardiology 04/05/21 Alana Celaya NP [address] [place] [address] [facility] [place] [address] Nurse Practitioner Cardiology 07/17/23 documented as of this encounter
--- OUTSIDE RECORDS SUMMARY | 2024-12-08 11:24 | XMS_ITS | Encounter Summary ---
Author Organization [facility] Address [address] [place] [address] Care Team Providers Care Cut Off Saw Tender Metal Name Role Phone Ced Victoria MD Unavailable [phone] Virgie Trivedi NP Unavailable [phone] Kirk Randle MD Primary Care Provider [phone] Alana Celaya NP Unavailable [phone] Reason for Visit * Reason Onset Date Comments refill request 08/30/2022 Encounter Details Date Type Department Care Team Description 08/30/2022 Refill Internal Medicine - [address], [address] [place] [address] Kirk Randle MD [address] [place] [address] refill request Social History Tobacco Use Types [...] Telephone Encounter - Jaquelin Gaytan L.P.N. - 08/30/2022 2:57 PM EST This patient is followed by the [facility] * Telephone Encounter - Shasha June - 08/30/2022 12:56 PM EST Patient would like script to be: E-PRESCRIBED/FAXED TO PHARMACY WHEN WAS THE PATIENT'S LAST APPOINTMENT WITH THE PRESCRIBING PROVIDER? 08-01-2022 Does patient have an upcoming appointment? no(THE MEDICATION REQUESTED IS ON THE MED LIST ABOVE) Did you check the Pharmacy information above?: YES Patient wants: 90 -day supply Is this a mail order prescription request ? NO Patients current insurance carrier is: Payor: [facility] / Plan: [employer] PREF HMO $10 [place] / Product Type: MEDICARE RISK Insurance ID #: No Subscriber Number on File documented in this encounter Plan of Treatment Not on file documented as of this encounter Visit Diagnoses Not on filedocumented in this encounter Care Teams Cut Off Saw Tender Metal Relationship Specialty Start Date End Date Kirk Randle MD [address] [place] [address] [address] [place] [address] PCP - General Internal Medicine 06/05/21 Ced Victoria MD [address] [place] [address] [address] [place] [address] Rubber Vulcanizing Machine Operator Cardiovascular Disease 04/05/21 Virgie Trivedi NP [address] [place] [address] [address] [place], [place] [phone] Nurse Practitioner Cardiology 04/05/21 Alana Celaya NP [address] [place] [address] [facility] [place] [address] Nurse Practitioner Cardiology 07/17/23 documented as of this encounter
--- OUTSIDE RECORDS SUMMARY | 2024-12-08 11:24 | XMS_ITS | Encounter Summary ---
Author Organization [facility] Address [address] [place] [address] Care Team Providers Care Metal Casket Maker Name Role Phone Ced Victoria MD Unavailable [phone] Virgie Trivedi NP Unavailable [phone] Kirk Randle MD Primary Care Provider [phone] Alana Celaya NP Unavailable [phone] Reason for Visit * Reason Onset Date Comments VNA Call 09/04/2022 Encounter Details Date Type Department Care Team Description 09/04/2022 Telephone Internal Medicine - [address], [address] [place], [place] [phone] Kirk Randle MD [address] [place], [place] [phone] VNA Call Social History Tobacco Use Types [...] just an FYI Debora PHysical Therapy @ [facility] report patient would doing well and discharged from physical therapy * Telephone Encounter - Shasha June - 09/04/2022 3:50 PM EST Debora PHysical Therapy @ [facility] report patient would doing well and discharged from physical therapy FYI documented in this encounter Plan of Treatment Not on file documented as of this encounter Visit Diagnoses Not on filedocumented in this encounter Care Teams Metal Casket Maker Relationship Specialty Start Date End Date Kirk Randle MD [address] [place] [address] [address] [place] [address] PCP - General Internal Medicine 06/05/21 Ced Victoria MD [address] [place] [address] [place] [address] Port Cdl A Driver Cardiovascular Disease 04/05/21 Virgie Trivedi NP [address] [place] [address] [address] [place] [address] Nurse Practitioner Cardiology 04/05/21 Alana Celaya NP [address] [place] [address] [facility] [place] [address] Nurse Practitioner Cardiology 07/17/23 documented as of this encounter
--- OUTSIDE RECORDS SUMMARY | 2024-12-08 11:24 | XMS_ITS | Encounter Summary ---
Author Organization [facility] Address [address] [place] [address] Care Team Providers Care Hydroelectric Station Operator Name Role Phone Kirk Randle MD Primary Care Provider [phone] Ced Victoria MD Unavailable [phone] Virgie Trivedi JOB PRINTER APPRENTICE Unavailable [phone] Kirk Randle MD Primary Care Provider + [phone] Alana Celaya JOB PRINTER APPRENTICE Unavailable +[phone] Encounter Details Date Type Department Care Team Description 05/04/2021 SCAN Medical Records [address] [place] [address] [facility] Social History Tobacco Use [...] on filedocumented in this encounter Care Teams Hydroelectric Station Operator Relationship Specialty Start Date End Date Kirk Randle MD PCP - General Internal Medicine 07/12/20 06/04/21 Kirk Randle MD PCP - General Internal Medicine 06/05/21 Ced Victoria MD [address] [place] [address] [address] [place] [address] Narcotics And/Or Vice Detective Cardiovascular Disease 04/05/21 Virgie Trivedi NP [address] [place] [address] [address] [place], [place] [phone] Nurse Practitioner Cardiology 04/05/21 Alana Celaya NP [address] [place] [address] [facility] [place], [place] 1349407 Nurse Practitioner Cardiology 07/17/23 documented as of this encounter
--- OUTSIDE RECORDS SUMMARY | 2024-12-08 11:24 | XMS_ITS | Encounter Summary ---
Author Organization [facility] Address [address] [place] [address] Care Team Providers Care Telephoto Installer Name Role Phone Kirk Randle MD Primary Care Provider [phone] Ced Victoria MD Unavailable [phone] Virgie Trivedi SPECTROGRAPHER Unavailable [phone] Kirk Randle MD Primary Care Provider + [phone] Alana Celaya SPECTROGRAPHER Unavailable [phone] Encounter Details Date Type Department Care Team Description 05/25/2021 Orders Only Internal Medicine - [address], [address] [place], [place] [phone] Kirk Randle MD [address] [place], [place] [id number] Social History Tobacco Use Types Packs/Day Years [...] on filedocumented in this encounter Care Teams Telephoto Installer Relationship Specialty Start Date End Date Kirk Randle MD PCP - General Internal Medicine 07/12/20 06/04/21 Kirk Randle MD PCP - General Internal Medicine 06/05/21 Ced Victoria MD [address] [place] [address] [address] [place] [address] Foot Piece Assembler Cardiovascular Disease 04/05/21 Virgie Trivedi NP [address] [place] [address] [address] [place], [place] [phone] Nurse Practitioner Cardiology 04/05/21 Alaan Celaya NP [address] [place] [address] [facility] [place], [place] [phone] Nurse Practitioner Cardiology 07/17/23 documented as of this encounter
--- OUTSIDE RECORDS SUMMARY | 2024-12-08 11:24 | XMS_ITS | Encounter Summary ---
Author Organization [facility] Address [address] [place] [address] Care Team Providers Care Industrial Psychology Teacher Name Role Phone Kirk Randle MD Primary Care Provider [phone] Ced Victoria MD Unavailable [phone] Virgie Trivedi UTILITY PLANT OPERATIVE Unavailable [phone] Kirk Randle MD Primary Care Provider + [phone] Alana Celaya UTILITY PLANT OPERATIVE Unavailable [phone] Encounter Details Date Type Department Care Team Description 05/29/2021 Community Health Coordinator Report Medical Records [address] [place] [address] [facility] Social History Tobacco Use Types Packs/Day Years [...] on filedocumented in this encounter Care Teams Industrial Psychology Teacher Relationship Specialty Start Date End Date Kirk Randle MD PCP - General Internal Medicine 07/12/20 06/04/21 Kirk Randle MD PCP - General Internal Medicine 06/05/21 Ced Victoria MD [address] [place] [address] [address] [place], [place] [phone] Oil Pit Attendant Cardiovascular Disease 04/05/21 Virgie Trivedi NP [address] [place] [address] [address] [place], [place] [phone] Nurse Practitioner Cardiology 04/05/21 Alana Celaya NP [address] [place] [address] [facility] [place] [address] Nurse Practitioner Cardiology 07/17/23 documented as of this encounter
--- OUTSIDE RECORDS SUMMARY | 2024-12-08 11:24 | XMS_ITS | Encounter Summary ---
Author Organization [facility] Address [address] [place] [address] Care Team Providers Care Self Rising Flour Mixer Name Role Phone Ced Victoria MD Unavailable [phone] Virgie Trivedi NP Unavailable [phone] Kirk Randle MD Primary Care Provider [phone] Alana Celaya NP Unavailable [phone] Encounter Details Date Type Department Care Team Description 08/16/2022 Hospital Medical Records [address] [place] [address] Raffy Gardner MD [address] [address] Social History Tobacco Use Types [...] on filedocumented in this encounter Care Teams Self Rising Flour Mixer Relationship Specialty Start Date End Date iKrk Randle MD [address] [place] [address] [address] [place] [address] PCP - General Internal Medicine 06/05/21 Ced Victoria MD [address] [place] [address] [address] [place] [address] Volunteer Assistant Cardiovascular Disease 04/05/21 Virgie Trivedi NP [address] [place] [address] [address] [place] [address] Nurse Practitioner Cardiology 04/05/21 Alana Celaya NP [address] [place] [address] [facility] [place] [address] Nurse Practitioner Cardiology 07/17/23 documented as of this encounter
--- OUTSIDE RECORDS SUMMARY | 2024-12-08 11:24 | XMS_ITS | Encounter Summary ---
Author Organization [facility] Address [address] [place] [address] Care Team Providers Care Welder Gun Name Role Phone Ced Victoria MD Unavailable [phone] Virgie Trivedi NP Unavailable [phone] Kirk Randle MD Primary Care Provider [phone] Alana Celaya NP Unavailable [phone] Encounter Details Date Type Department Care Team Description 07/09/2022 Mop Handle Assembler Report Medical Records [address] [place] [id number] [place] [address] Social History Tobacco Use Types Packs/Day Years [...] on filedocumented in this encounter Care Teams Welder Gun Relationship Specialty Start Date End Date Kirk Randle MD [address] [place] [address] [address] [place] [address] PCP - General Internal Medicine 06/05/21 Ced Victoria MD [address] [place] [address] [address] [place] [address] Avionics Test Technician Cardiovascular Disease 04/05/21 Virgie Trivedi NP [address] [place] [address] [address] [place] [address] Nurse Practitioner Cardiology 04/05/21 Alana Celaya NP [address] [place] [address] [facility] [place] [address] Nurse Practitioner Cardiology 07/17/23 documented as of this encounter
--- OUTSIDE RECORDS SUMMARY | 2024-12-08 11:24 | XMS_ITS | Encounter Summary ---
Author Organization [facility] Address [address] [place] [address] Care Team Providers Care Pulverizer Operator Name Role Phone Kirk Randle MD Primary Care Provider [phone] Ced Victoria MD Unavailable [phone] Virgie Trivedi EDGER MACHINE HELPER Unavailable [phone] Kirk Randle MD Primary Care Provider + [phone] Alana Celaya EDGER MACHINE HELPER Unavailable [phone] Encounter Details Date Type Department Care Team Description 05/23/2021 Storage Facility Rental Clerk Report Medical Records [address] [place] [id number] [place] [address] Social History Tobacco Use Types Packs/Day Years [...] on filedocumented in this encounter Care Teams Pulverizer Operator Relationship Specialty Start Date End Date Kirk Randle MD PCP - General Internal Medicine 07/12/20 06/04/21 Kirk Randle MD PCP - General Internal Medicine 06/05/21 Ced Victoria MD [address] [place] [address] [address] [place] [address] Supervisor Agricultural Education Cardiovascular Disease 04/05/21 Virgie Trivedi NP [address] [place] [address] [address] [place], [place] [phone] Nurse Practitioner Cardiology 04/05/21 Alana Celaya NP [address] [place] [address] [facility] [place], [place] 10[address]407 Nurse Practitioner Cardiology 07/17/23 documented as of this encounter
--- OUTSIDE RECORDS SUMMARY | 2024-12-08 11:24 | XMS_ITS | Encounter Summary ---
Author Organization [facility] Address [address] [place] [address] Care Team Providers Care Fiction And Nonfiction Prose Writer Name Role Phone Ced Victoria MD Unavailable [phone] Virgie Trivedi NP Unavailable [phone] Kirk Randle MD Primary Care Provider [phone] Alana Celaya NP Unavailable [phone] Reason for Visit * Reason Onset Date Comments Provider Call Back 04/24/2024 Encounter Details Date Type Department Care Team Description 04/24/2024 Telephone Internal Medicine - [address], [address] [place], [place] [phone] Kirk Randle MD [address] [place], [place] [phone] Provider Call Back Social History Tobacco Use [...] - 04/24/2024 9:55 AM EDT Jeana from [facility] called and stated PT is currently waiting to get a teeth cleaning. They received medical clearance to be ok. However he is on blood thinner medication and req an urgent cb to know if he is still ok to be seen. His appt is for 10:30Am. Please advise CB - [phone] documented in this encounter Plan of Treatment Not on file documented as of this encounter Visit Diagnoses Not on filedocumented in this encounter Care Teams Fiction And Nonfiction Prose Writer Relationship Specialty Start Date End Date iKrk Radnle MD [address] [place] [address] [place] [address] PCP - General Internal Medicine 06/05/21 Ced Victoria MD [address] [place] [address] [place] [address] Statistics Intern Cardiovascular Disease 04/05/21 Virgie Trivedi NP [address] [place] [address] [place] [address] Nurse Practitioner Cardiology 04/05/21 Alana Celaya NP [address] [place] [address] [facility] [address] Nurse Practitioner Cardiology 07/17/23 documented as of this encounter
--- OUTSIDE RECORDS SUMMARY | 2024-12-08 11:24 | XMS_ITS | Encounter Summary ---
Author Organization [facility] Address [address] [place] [address] Care Team Providers Care Heddler Tier Name Role Phone Ced Victoria MD Unavailable [phone] Virgie Trivedi NP Unavailable [phone] Kirk Randle MD Primary Care Provider [phone] Alana Celaya NP Unavailable [phone] Encounter Details Date Type Department Care Team Description 01/16/2022 Spa Therapist Report Medical Records [address] [place] [address] Social History Tobacco Use Types Packs/Day Years [...] on filedocumented in this encounter Care Teams Heddler Tier Relationship Specialty Start Date End Date Kirk Randle MD [address] [place] [address] [address] [place], [place] [phone] PCP - General Internal Medicine 06/05/21 Ced Victoria MD [address] [place] [address] [address] [place] [address] Business Intelligence Engineer Cardiovascular Disease 04/05/21 Virgie Trivedi NP [address] [place] [address] [address] [place] [address] Nurse Practitioner Cardiology 04/05/21 Alana Celaya NP [address] [place] [address] [facility] [place] [address] Nurse Practitioner Cardiology 07/17/23 documented as of this encounter
--- OUTSIDE RECORDS SUMMARY | 2024-12-08 11:25 | XMS_ITS | Encounter Summary ---
Author Organization [facility] Address [address] [place] [address] Care Team Providers Care Rn Lvn Name Role Phone Ced Victoria MD Unavailable [phone] Virgie Trivedi NP Unavailable [phone] Kirk Randle MD Primary Care Provider [phone] Alana Celaya NP Unavailable [phone] Encounter Details Date Type Department Care Team Description 09/05/2021 Telephone Internal Medicine - [address], [address] [place], [place] [phone] Kirk Randle MD [address] [place], [place] [phone] Social History Tobacco Use Types Packs/Day Years [...] filedocumented in this encounter Care Teams Rn Lvn Relationship Specialty Start Date End Date Kirk Randle MD [address] [place] [address] [address] [place] [address] PCP - General Internal Medicine 06/05/21 Ced Victoria MD [address] [place] [address] [address] [place] [address] Traffic Rate Clerk Cardiovascular Disease 04/05/21 Virgie Trivedi NP [address] [place] [address] [address] [place] [address] Nurse Practitioner Cardiology 04/05/21 Alana Celaya NP [address] [place] [address] [facility] [place] [address] Nurse Practitioner Cardiology 07/17/23 documented as of this encounter
--- OUTSIDE RECORDS SUMMARY | 2024-12-08 11:25 | XMS_ITS | Encounter Summary ---
Author Organization [facility] Address [address] [place] [address] Care Team Providers Care Egg Tester Name Role Phone Ced Victoria MD Unavailable [phone] Virgie Trivedi NP Unavailable [phone] Kirk Randle MD Primary Care Provider [phone] Alana Celaya NP Unavailable [phone] Encounter Details Date Type Department Care Team Description 09/11/2021 Test Inspection Engineer Report Medical Records [address] [place] [id number] [place] [address] Social History Tobacco Use Types Packs/Day Years [...] on filedocumented in this encounter Care Teams Egg Tester Relationship Specialty Start Date End Date Kirk Randle MD [address] [place] [address] [address] [place] [address] PCP - General Internal Medicine 06/05/21 Ced Victoria MD [address] [place] [address] [address] [place] [address] Tiedown Operator Cardiovascular Disease 04/05/21 Virgie Trivedi NP [address] [place] [address] [address] [place], [place] [phone] Nurse Practitioner Cardiology 04/05/21 Alana Celaya NP [address] [place] [address] [facility] [place] [address] Nurse Practitioner Cardiology 07/17/23 documented as of this encounter
--- OUTSIDE RECORDS SUMMARY | 2024-12-08 11:25 | XMS_ITS | Encounter Summary ---
Author Organization [facility] Address [address] [place] [address] Care Team Providers Care Hospice Care Consultant Name Role Phone Ced Victoria MD Unavailable [phone] Virgie Trivedi NP Unavailable [phone] Kirk Randle MD Primary Care Provider [phone] Alana Celaya NP Unavailable [phone] Reason for Visit * Reason Onset Date Comments [facility] Call 05/29/2023 Encounter Details Date Type Department Care Team Description 05/29/2023 Telephone Internal Medicine - [address], [address] [place], [place] [phone] Kirk Randle MD [address] [place], [place] [phone] [facility]NA Call Social History Tobacco Use Types [...] FYI from [facility] Call to A # [phone], spoke w/ Erlinda. Verbal orders given For his wound, they are doing Calcium AG, dry clean dressing on pat wound. 2x per week unless vascular MD orders otherwise for wound care. Pt has appt w/ vascular on Saturday for further assessment/orders Also FYI pt is not taking his multivitamin or Gordo 3 supplement * Telephone Encounter - Kristen Huffman - 05/29/2023 4:12 PM EDT [facility] CALL Which A office is calling? [place] Full name of caller: Erlinda Rojas 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 A nurse Is the caller at the patients home?: NO Reason for call: Nurse called today to request verbal orders: fci and wound care - nurse saw patient today. Does caller need an urgent call back? YES Was CONTACT Telephone # obtained above?: YES Fax #: documented in this encounter Plan of Treatment Not on file documented as of this encounter Visit Diagnoses Not on filedocumented in this encounter Care Teams Hospice Care Consultant Relationship Specialty Start Date End Date Kirk Randle MD [address] [place] [address] [address] [place] [address] PCP - General Internal Medicine 06/05/21 Ced Victoria MD [address] [place] [address] [address] [place] [address] Pecan Gatherer Cardiovascular Disease 04/05/21 Virgie Trivedi NP [address] [place] [address] [address] [place] [address] Nurse Practitioner Cardiology 04/05/21 Alana Celaya NP [address] [place] [address] Dr [facility] [place] [address] Nurse Practitioner Cardiology 07/17/23 documented as of this encounter
--- OUTSIDE RECORDS SUMMARY | 2024-12-08 11:25 | XMS_ITS | Encounter Summary ---
Author Organization [facility] Address [address] [place] [address] Care Team Providers Care Network Architect Manager Name Role Phone Ced Victoria MD Unavailable [phone] Virgie Trivedi NP Unavailable [phone] Kirk Randle MD Primary Care Provider [phone] Alana Celaya NP Unavailable [phone] Encounter Details Date Type Department Care Team Description 05/29/2023 Home Health Certification Medical Records [address] [place] [address] Social History Tobacco Use Types Packs/Day Years [...] filedocumented in this encounter Care Teams Network Architect Manager Relationship Specialty Start Date End Date Kirk Randle MD [address] [place] [address] [address] [place] [address] PCP - General Internal Medicine 06/05/21 Ced Victoria MD [address] [place] [address] [address] [place] [address] Long Chain Dyeing Machine Operator Cardiovascular Disease 04/05/21 Virgie Trivedi NP [address] [place] [address] [address] [place] [address] Nurse Practitioner Cardiology 04/05/21 Alana Celaya NP [address] [place] [address] [facility] [place] [address] Nurse Practitioner Cardiology 07/17/23 documented as of this encounter
--- OUTSIDE RECORDS SUMMARY | 2024-12-08 11:25 | XMS_ITS | Encounter Summary ---
Author Organization [facility] Address [address] [place] [address] Care Team Providers Care Shove Up Name Role Phone Octavio Gross MD Primary Care Provider Unavaila Kathie Cordova PA-C Primary Care Provider + Kirk Randle MD Primary Care Provider [phone] Ced Victoria MD Unavailable [phone] Virgie Trivedi NP Unavailable [phone] Kirk Randle MD Primary Care Provider [phone] Alana Celaya NP Unavailable [phone] Encounter Details Date Type Department Care Team Description 02/03/2020 Walk In Clinic Visit Medical Records [address] [place] [address] Social History Tobacco Use Types Packs/Day Years [...] on filedocumented in this encounter Care Teams Shove Up Relationship Specialty Start Date End Date Octavio Gross MD PCP - General Internal Medicine 05/19/18 02/22/20 Kathie Le PA-C PCP - General Internal Medicine 02/23/20 07/11/20 Kirk Randle MD PCP - General Internal Medicine 07/12/20 06/04/21 Kirk Randle MD PCP - General Internal Medicine 06/05/21 Ced Victoria MD [address] [place] [address] [address] [place] [address] Ostrich Farmer Cardiovascular Disease 04/05/21 Virgie Trivedi NP [address] [place] [address] [address] [place] [address] Nurse Practitioner Cardiology 04/05/21 Alana Celaya NP [address] [place] [address] [facility] [place], [place] [address] Nurse Practitioner Cardiology 07/17/23 documented as of this encounter
--- OUTSIDE RECORDS SUMMARY | 2024-12-08 11:25 | XMS_ITS | Encounter Summary ---
Author Organization [facility] Address [address] [place] [address] Care Team Providers Care Straight Ruling Machine Operator Name Role Phone Ced Victoria MD Unavailable [phone] Virgie Trivedi NP Unavailable [phone] Kirk Randle MD Primary Care Provider [phone] Alana Celaya NP Unavailable [phone] Reason for Referral * EXTERNAL (Priority) - Closed Specialty Diagnoses / Procedures Referred By Jacoby díaz Referred To Contact Home Health Care / Home care Procedures REFERRAL TO HOME CARE Kirk Randle MD [address] [place] [address] Default, Provider Referral ID Status Reason Start Date Expiration Date Visits Re quested Visits Authorized [id number] Closed 06/15/2024 06/15/2025 1 1 Encounter Details Date Type Department Care Team Description 06/15/2024 Orders Only Internal Medicine - [address], [address] [place] [address] Kirk Randle MD [address] [place] [address] Social History Tobacco Use Types Packs/Day Years [...] on filedocumented in this encounter Care Teams Straight Ruling Machine Operator Relationship Specialty Start Date End Date Kirk Randle MD [address] [place] [address] [address] [place] [address] PCP - General Internal Medicine 06/05/21 Ced Victoria MD [address] [place] [address] [address] [place] [address] Target Trimmer Cardiovascular Disease 04/05/21 Virgie Trivedi NP [address] [place] [address] [address] [place] [address] Nurse Practitioner Cardiology 04/05/21 Alana Celaya NP [address] [place] [address] [facility] [place] [address] Nurse Practitioner Cardiology 07/17/23 documented as of this encounter
--- OUTSIDE RECORDS SUMMARY | 2024-12-08 11:25 | XMS_ITS | Encounter Summary ---
Author Organization [facility] Address [address] [place] [address] Care Team Providers Care Telemetry Technician Name Role Phone Kathie Le PA-C Primary Care Provider + Kirk Randle MD Primary Care Provider [phone] Ced Victoria MD Unavailable [phone] Virgie Trivedi LOSS PREVENTION DETECTIVE Unavailable [phone] Kirk Randle MD Primary Care Provider [phone] Alana Celaya LOSS PREVENTION DETECTIVE Unavailable [phone] Reason for Visit * Reason Onset Date Comments Tailoring Teacher Feedback 03/21/2020 SHALA LONGO NPI : [id number] Encounter Details Date Type Department Care Team Description 03/21/2020 Telephone Internal Medicine - [address], [address] [place] [address] Kathie Le PA-C [address] [place] [phone] Tailoring Teacher Feedback (SHALA LONGO NPI : [id number] ) Social History Tobacco Use Types Packs/Day [...] Chua - 03/21/2020 11:36 AM EDT [facility] HCS Review Request Submission Status [ Save Response to Batch ] Request: [id number] [facility] Trace #: [id number] Subscriber: VLADIMIR FLYNN Submitter : KIRK RANDLE Submitter Type: Provider : 1940 Referral (#[id number]) Specialty Care Review Type: Initial Certification Status : Certified in total Service Type : Medical Care Place Of Service : Other Place of Service Visits : 6 Service Date : 03/21/2020-03/21/2021 Service Providers Provider Name ID Provider Type SHALA LONGO NPI : [id number] Service Provider * Telephone Encounter - Rosalba Hubbard - 03/21/2020 11:05 AM EDT What insurance does the patient have today? [facility] Effective 06/09/09: BS will not retro [...] YES Is this visit:Initial Visit Address of Specialist:[address] [place] [address] Phone # of Specialist:[phone] Fax #: (if applicable):[phone] Does patient have an appointment scheduled?: YES Date of appointment- (including a retro-request): 04/01/2020 Is this appointment related to: Not MVA, WC or Surgery related documented in this encounter Plan of Treatment Not on file documented as of this encounter Visit Diagnoses Not on filedocumented in this encounter Care Teams Telemetry Technician Relationship Specialty Start Date End Date Kathie Le PA-C PCP - General Internal Medicine 02/23/20 07/11/20 Kirk Randle MD PCP - General Internal Medicine 07/12/20 06/04/21 Kirk Randle MD PCP - General Internal Medicine 06/05/21 Ced Victoria MD [address] [place] [address] [address] [place] [address] Sailing Instructor Cardiovascular Disease 04/05/21 Virgie Trivedi NP [address] [place] [address] [address] [place] [address] Nurse Practitioner Cardiology 04/05/21 Alana Celaya NP [address] [place] [address] [facility] [place] [address] Nurse Practitioner Cardiology 07/17/23 documented as of this encounter
--- OUTSIDE RECORDS SUMMARY | 2024-12-08 11:25 | XMS_ITS | Encounter Summary ---
Author Organization [facility] Address [address] [place] [address] Care Team Providers Care Fleet Driver Name Role Phone Ced Victoria MD Unavailable [phone] Virgie Trivedi NP Unavailable [phone] Kirk Randle MD Primary Care Provider [phone] Alana Celaya NP Unavailable [phone] Encounter Details Date Type Department Care Team Description 12/25/2021 Hydro Technician Report Medical Records [address] [place] [id number] [place] [address] Social History Tobacco Use Types Packs/Day Years [...] on filedocumented in this encounter Care Teams Fleet Driver Relationship Specialty Start Date End Date Kirk Randle MD [address] [place] [address] [address] [place] [address] PCP - General Internal Medicine 06/05/21 Ced Victoria MD [address] [place] [address] [address] [place] [address] Math Coach Cardiovascular Disease 04/05/21 Virgie Trivedi NP [address] [place] [address] [address] [place] [address] Nurse Practitioner Cardiology 04/05/21 Alana Celaya NP [address] [place] [address] [facility] [place] [address] Nurse Practitioner Cardiology 07/17/23 documented as of this encounter
--- OUTSIDE RECORDS SUMMARY | 2024-12-08 11:25 | XMS_ITS | Encounter Summary ---
Author Organization [facility] Address [address] [place] [address] Care Team Providers Care Mortar Mixer Name Role Phone Ced Victoria MD Unavailable [phone] Virgie Trivedi NP Unavailable [phone] Kirk Randle MD Primary Care Provider [phone] Alana Celaya NP Unavailable [phone] Encounter Details Date Type Department Care Team Description 07/04/2021 Clinical Asst Report Medical Records [address] [place] [address] Abstract, Provider Social History Tobacco Use Types [...] on filedocumented in this encounter Care Teams Mortar Mixer Relationship Specialty Start Date End Date Kirk Randle MD [address] [place] [address] [address] [place] [address] PCP - General Internal Medicine 06/05/21 Ced Victoria MD [address] [place] [address] [address] [place] [address] Java Spring Developer Cardiovascular Disease 04/05/21 Virgie Trivedi NP [address] [place] [address] [address] [place] [address] Nurse Practitioner Cardiology 04/05/21 Alana Celaya NP [address] [place] [address] [facility] [place] [address] Nurse Practitioner Cardiology 07/17/23 documented as of this encounter
--- OUTSIDE RECORDS SUMMARY | 2024-12-08 11:25 | XMS_ITS | Encounter Summary ---
Author Organization [facility] Address [address] [place] [address] Care Team Providers Care Industrial Education Instructor Name Role Phone Ced Victoria MD Unavailable [phone] Virgie Trivedi NP Unavailable [phone] Kirk Randle MD Primary Care Provider [phone] Alana Celaya NP Unavailable [phone] Encounter Details Date Type Department Care Team Description 12/11/2021 Refrigeration Technician Report Medical Records [address] [place] [id number] [place] [address] Social History Tobacco Use Types Packs/Day Years [...] filedocumented in this encounter Care Teams Industrial Education Instructor Relationship Specialty Start Date End Date Kirk Randle MD [address] [place] [address] [address] [place] [address] PCP - General Internal Medicine 06/05/21 Ced Victoria MD [address] [place] [address] [address] [place] [address] Flight Operations Specialist Cardiovascular Disease 04/05/21 Virgie Trivedi NP [address] [place] [address] [address] [place] [address] Nurse Practitioner Cardiology 04/05/21 Alana Celaya NP [address] [place] [address] [facility] [place] [address] Nurse Practitioner Cardiology 07/17/23 documented as of this encounter
--- OUTSIDE RECORDS SUMMARY | 2024-12-08 11:25 | XMS_ITS | Encounter Summary ---
Author Organization [facility] Address [address] [place] [address] Care Team Providers Care Field Support Engineer Name Role Phone Kathie Le PA-C Primary Care Provider + Kirk Randle MD Primary Care Provider [phone] Ced Victoria MD Unavailable [phone] Virgie Trivedi AUTOMATIC LOG CUT OFF [place] Unavailable [phone] Kirk Randle MD Primary Care Provider [phone] Alana Celaya AUTOMATIC LOG CUT OFF [place] Unavailable [phone] Encounter Details Date Type Department Care Team Description 03/21/2020 Telephone Internal Medicine - [address], [address] [place], [place] [phone] Kathie Le PA-C [address] [place] [phone] Social History Tobacco Use Types Packs/Day [...] filedocumented in this encounter Care Teams Field Support Engineer Relationship Specialty Start Date End Date Kathie Le PA-C PCP - General Internal Medicine 02/23/20 07/11/20 Kirk Randle MD PCP - General Internal Medicine 07/12/20 06/04/21 Kirk Randle MD PCP - General Internal Medicine 06/05/21 Ced Victoria MD [address] [place] [address] [address] [place], [place] [phone] Cherry Sorter Cardiovascular Disease 04/05/21 Virgie Trivedi NP [address] [place] [address] [address] [place], [place] [phone] Nurse Practitioner Cardiology 04/05/21 Alana Celaya NP [address] [place] [address] [facility] [place], [place] [phone] Nurse Practitioner Cardiology 07/17/23 documented as of this encounter
--- OUTSIDE RECORDS SUMMARY | 2024-12-08 11:25 | XMS_ITS | Encounter Summary ---
Author Organization [facility] Address [address] [place] [address] Care Team Providers Care Lumber Carrier Operator Name Role Phone Octavio Gross MD Primary Care Provider Unavaila Kathie Cordova PA-C Primary Care Provider + Kirk Randle MD Primary Care Provider [phone] Ced Victoria MD Unavailable [phone] Virgie Trivedi NP Unavailable [phone] Kirk Randle MD Primary Care Provider [phone] Alana Celaya NP Unavailable [phone] Encounter Details Date Type Department Care Team Description 09/17/2018 Release of Information Medical Records [address] [place] [address] Abstract, Provider Social History Tobacco Use Types [...] on filedocumented in this encounter Care Teams Lumber Carrier Operator Relationship Specialty Start Date End Date Octavio Gross MD PCP - General Internal Medicine 05/19/18 02/22/20 Kathie Le PA-C PCP - General Internal Medicine 02/23/20 07/11/20 Kirk Randle MD PCP - General Internal Medicine 07/12/20 06/04/21 Kirk Randle MD PCP - General Internal Medicine 06/05/21 Ced Victoria MD [address] [place] [address] [address] [place], [place] [phone] Admin Prog Coord Cardiovascular Disease 04/05/21 Virgie Trivedi NP [address] [place] [address] [address] [place], [place] [phone] Nurse Practitioner Cardiology 04/05/21 Alana Celaya NP [address] [place] [address] [facility] [place], [place] [phone] Nurse Practitioner Cardiology 07/17/23 documented as of this encounter
--- OUTSIDE RECORDS SUMMARY | 2024-12-08 11:25 | XMS_ITS | Encounter Summary ---
Author Organization [facility] Address [address] [place] [address] Care Team Providers Care Rehab Aide Name Role Phone Octavio Gross MD Primary Care Provider Unavaila Kathie Cordova PA-C Primary Care Provider + Kirk Randle MD Primary Care Provider [phone] Ced Victoria MD Unavailable [phone] Virgie Trivedi NP Unavailable [phone] Kirk Randle MD Primary Care Provider [phone] Alana Celaya NP Unavailable [phone] Reason for Visit * Reason Onset Date Comments Provider Call Back 07/25/2018 Encounter Details Date Type Department Care Team Description 07/25/2018 Telephone Internal Medicine - [address], [address] [place] [address] Octavio Gross MD Provider Call Back Social [...] Edita Davison - 07/25/2018 11:17 AM EST [phone] (home) [phone] (work) Spoke with pt and advised, he stated that does he really doesn't need the [facility] services? Hestated that he comes in and has appt with you and discuss what's going on, or what he having a problem with. He wants to know does he need this service? Please advise * Telephone Encounter - Soila Marks - 07/25/2018 11:01 AM EST Patient received a letter from [facility] stating that he qualifies for a free [...] on filedocumented in this encounter Care Teams Rehab Aide Relationship Specialty Start Date End Date Octavio Gross MD PCP - General Internal Medicine 05/19/18 02/22/20 Kathie Le PA-C PCP - General Internal Medicine 02/23/20 07/11/20 Kirk Randle MD PCP - General Internal Medicine 07/12/20 06/04/21 Kirk Randle MD PCP - General Internal Medicine 06/05/21 Ced Victoria MD [address] [place] [address] [address] [place] [address] Meat And Seafood Manager Cardiovascular Disease 04/05/21 Virgie Trivedi NP [address] [place] [address] [address] [place], [place] [phone] Nurse Practitioner Cardiology 04/05/21 Alana Celaya NP [address] [place] [address] [facility] [place] [address] Nurse Practitioner Cardiology 07/17/23 documented as of this encounter
--- OUTSIDE RECORDS SUMMARY | 2024-12-08 11:25 | XMS_ITS | Clinical Summary ---
Author Organization [facility] Address [address] [address] Phone Care Team Providers Care Electrical Installation Supervisor Name Role Phone Kirk Randle MD Primary Care Provider [phone] Allergies Active Allergy Reactions Criticality Noted Date [...] every day. Do not change dietary habits. [facility] directs coumadin instructions 90 tablet 11 10/20/19 25 Active Active Problems Problem Noted Date Diagnosed Date [...] be anticoagulated on Coumadin for stroke reduction. [id number] score of 5 for heart failure, hypertension, [...] (coronary artery disease) 05/14/2018 Overview (08/04/2024): Old [place]; Stress test -ve 2010, treated in [place] in 2003, stents put in. Last Assessment [...] Plan: Patient continues to follow closely with [facility] vascular surgery. Assessment & Plan (10/09/2024 5:27 [...] Care Team Description 11/02/2024 Telephone Internal Medicine [address] [phone] Yumi Jordan [place] faxed order ([employer]) 10/09/2024 9:50 AM EST Office Visit [facility] Cardiology [facility] [address] [place] [address] Ced Victoria MD Atrial fibrillation, unspecified type (CMS/HCC) (Primary Dx); Coronary artery disease involving twin hills coronary artery of twin hills heart without angina pectoris; Dilated cardiomyopathy (CMS/HCC); Chronic venous insufficiency; Cardiomyopathy, unspecified type (CMS/HCC) 10/07/2024 Telephone Internal Medicine - [place] [address] [phone] Kirk Randle MD Jer - Referral 09/30/2024 9:00 AM EST Office Visit Internal Medicine [address] [place] [phone] Kirk Randle MD Primary hypertension (Primary Dx); Cardiomyopathy, unspecified type (CMS/HCC); Hypercholesterolemia 09/18/2024 Telephone [facility] Cardiology [facility] [address] [place] [address] Ced Victoria MD Med Refill (Atorvastatin) from [...] PROCEDURE: HISTORICAL CARDIAC CATH KNEE ARTHROSCOPY PROCEDURE: WI ARTHROSCOPY AID TX SPINE&/FX KNEE W/O FIXJ OTHER SURGICAL HISTORY 05/19/2018 Right PROCEDURE: WI ENDOVEN ABLTJ INCMPTNT VEIN XTR LASER 1ST VEIN TOTAL KNEE ARTHROPLASTY 10/07/2018 Right PROCEDURE: HISTORICAL TOTAL KNEE REPLACE; COMMENT: [facility] EYE SURGERY Bilateral PROCEDURE: HISTORICAL EYE SURGERY; COMMENT: cataracts BYPASS GRAFT 08/16/2022 Right PROCEDURE: WI AMPUTATION TOE METATARSOPHALANGEAL JOINT; COMMENT: R 5th toe OTHER SURGICAL HISTORY 08/16/2022 Right PROCEDURE: WI INCISION BONE CORTEX FOOT; COMMENT: R 5th metatarsal OTHER SURGICAL HISTORY 10/23/2022 PROCEDURE: WI SLCTV CATHJ 3RD+ ORD SLCTV ABDL PEL/LXTR BRNCH OTHER SURGICAL HISTORY 10/23/2022 PROCEDURE: X-RAY EXAM OF ARM/LEG ARTERY OTHER SURGICAL HISTORY 10/23/2022 PROCEDURE: ULTRASOUND GUIDANCE FOR VASCULAR AC OTHER SURGICAL HISTORY 07/09/2023 PROCEDURE: WI REVSC OPN/PRQ TIB/RON W/ANGIOPLASTY UNI OTHER SURGICAL HISTORY 07/09/2023 PROCEDURE: ULTRASOUND GUIDANCE FOR VASCULAR AC Medical History Medical History Date Comments Atrial fibrillation (CMS/HCC) DX :Atrial fibrillation (HCC) Coronary artery disease DX:Coron randy artery disease; COMMENT: [place]; Stress test -ve 2010, treated in [place] in 2004, stents put in. Cataracts, bilateral [...] AM EDT Office Visit Internal Medicine - [place] [address] [facility] [address] [place] [phone] Kirk Randle MD [address] [facility] [address] [place] [address] 04/19/2025 10:10 AM EDT Office Visit [facility] Associates [facility] Center [address] [place] [phone] Virgie Trivedi NP [address] [place] [address] [address] [place] [address] 07/14/2025 1:00 PM EST Appointment [facility] Ultrasound [address] [place] [address] Health Maintenance Due Date Last [...] ms GEMUSE QTc 377 ms GEMUSE R [place] 66 degrees GEMUSE T [place] -5 degrees GEMUSE ECG Interpretation Atrial fibrillation with slow ventricular response Possible Inferior infarct (cited on or before 02-APR-2021) Abnormal ECG When compared with ECG of 24-OCT-2022 16:17, QT has shortened Confirmed by Kathya VICTORIA JAMES ([id number]) on 10/09/2024 5:06:39 PM G[facility] 10/09/2024 10:2 5 AM EST 10/09/2024 5:06 PM EST Ced Victoria MD ECG ORDERABLES Final Result Performing Organization Address [facility] Co de Phone Number GEMUSE * Lipid panel with reflex to direct LDL (09/30/2024 10:13 AM EST) Cholesterol 117 0 - 200 mg/dL LAB CHEMISTRY METHOD 09/30/2024 1:14 PM EST [facility] Triglycerides 77 0 - 150 mg/dL LAB CHEMISTRY METHOD 09/30/2024 1:14 PM EST [facility] HDL 48 >=40 mg/dL LAB CHEMISTRY METHOD 09/30/2024 1:14 PM EST [facility] LDL Calculated 54 0 - 100 mg/dL LAB CHEMISTRY METHOD 09/30/2024 1:14 PM EST [facility] VLDL Cholesterol Ric 15.4 mg/dL LAB CHEMISTRY METHOD 09/30/2024 1:14 PM EST [facility] Non HDL Chol. (LDL+VLDL) 69 <145 mg/dL LAB CHEMISTRY METHOD 09/30/2024 1:14 PM EST [facility] Chol/HDL Ratio 2.4 0.0 - 4.4 LAB CHEMISTRY METHOD 09/30/2024 1:14 PM [facility] Blood Venous blood specimen / Unknown Venipuncture / Unknown 09/30/2024 10:13 AM EST 09/30/2024 11:01 AM EST Kirk Randle MD LAB BLOOD ORDERABLES Final Resul t [facility] [address] [place] [address], [place] [phone] * (ABNORMAL) CBC auto differential (09/30/2024 10:13 AM EST) WBC 9.6 4.8 - 10.8 K/mcL LAB HEMETOLOGY METHOD 09/30/2024 11:30 AM [facility] RBC 5.30 4.50 - 5.50 M/mcL LAB HEMETOLOGY METHOD 09/30/2024 11:30 AM [facility] Hemoglobin 16.1 13.5 - 17.5 g/dL LAB HEMETOLOGY METHOD 09/30/2024 11:30 AM [facility] Hematocrit 50.0 42.0 - 54.0 % LAB HEMETOLOGY METHOD 09/30/2024 11:30 AM [facility] MCV 95.1 79.0 - 98.0 FL LAB HEMETOLOGY METHOD 09/30/2024 11:30 AM [facility] MCH 30.6 27.0 - 32.0 pcg LAB HEMETOLOGY METHOD 09/30/2024 11:30 AM [facility] MCHC 32.2 32.0 - 37.0 g/dL LAB HEMETOLOGY METHOD 09/30/2024 11:30 AM [facility] RDW 13.3 11.0 - 15.0 % LAB HEMETOLOGY METHOD 09/30/2024 11:30 AM [facility] Platelets 227 130 - 400 K/mcL LAB HEMETOLOGY METHOD 09/30/2024 11:30 AM [facility] MPV 11.8(H) 7.0 - 11.0 FL LAB HEMETOLOGY METHOD 09/30/2024 11:30 AM [facility] NRBC 0.0 <1.0 % LAB HEMETOLOGY METHOD 09/30/2024 11:30 AM [facility] NRBC Absolute 0.00 <0.10 K/mcL LAB HEMETOLOGY METHOD 09/30/2024 11:30 AM [facility] Neutrophils Relative 67.5 % LAB HEMETOLOGY METHOD 09/30/2024 11:30 AM [facility] Lymphocytes Relative 20.8 % LAB HEMETOLOGY METHOD 09/30/2024 11:30 AM [facility] Monocytes Relative 9.0 % LAB HEMETOLOGY METHOD 09/30/2024 11:30 AM [facility] Eosinophils Relative 1.9 % LAB HEMETOLOGY METHOD 09/30/2024 11:30 AM [facility] Basophils Relative 0.4 % LAB HEMETOLOGY METHOD 09/30/2024 11:30 AM [facility] Immature Granulocytes Relative 0.4 % LAB HEMETOLOGY METHOD 09/30/2024 11:30 AM [facility] Neutrophils Absolute 6.48 1.50 - 7.00 K/mcL LAB HEMETOLOGY METHOD 09/30/2024 11:30 AM [facility] Lymphocytes Absolute 2.00 1.00 - 5.00 K/mcL LAB HEMETOLOGY METHOD 09/30/2024 11:30 AM [facility] Monocytes Absolute 0.86 0.20 - 1.00 K/mcL LAB HEMETOLOGY METHOD 09/30/2024 11:30 AM [facility] Eosinophils Absolute 0.18 0.00 - 0.50 K/mcL LAB HEMETOLOGY METHOD 09/30/2024 11:30 AM [facility] Basophils Absolute 0.04 0.00 - 0.20 K/mcL LAB HEMETOLOGY METHOD 09/30/2024 11:30 AM [facility] Immature Granulocytes Absolute 0.04(H) 0.00 - 0.03 K/mcL LAB HEMETOLOGY METHOD 09/30/2024 11:30 AM [facility] Blood Venous blood specimen / Unknown Venipuncture / Unknown 09/30/2024 10:13 AM EST 09/30/2024 11:04 AM EST us Kirk Jer MD LAB BLOOD ORDERABLES Final Resul t Performing Organization Address [facility]/ZIP Co de Phone Number [facility] [address] [place] [address], [place] [phone] * Thyroid stimulating hormone (09/30/2024 10:13 AM EST) TSH 3.07 0.40 - 4.00 mcIU/mL LAB CHEMISTRY METHOD 09/30/2024 12:21 PM [facility] Blood Venous blood specimen / Unknown Venipuncture / Unknown 09/30/2024 10:13 AM EST 09/30/2024 11:01 AM EST us Kirk Randle MD LAB BLOOD ORDERABLES Final Resul t Performing Organization Address [facility] Co de Phone Number [facility] [address] [place] [address], [place] [phone] * (ABNORMAL) Comprehensive metabolic panel (09/30/2024 10:13 [...] MD LAB BLOOD ORDERABLES Final Resul t [facility] [address] [place] [address], from Last 3 Months Insurance [employer] Advance Directives Documents on File Type Date Recorded 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
--- OUTSIDE RECORDS SUMMARY | 2024-12-08 11:25 | XMS_ITS | Encounter Summary ---
Author Organization [facility] Address [address] [place] [address] Care Team Providers Care Press Assistant Name Role Phone Minh Butts MD Primary Care Provider UnavailOctavio Rodrigues MD Primary Care Provider Unavaila Kathie Cordova PA-C Primary Care Provider + Kirk Randle MD Primary Care Provider [phone] Octavio Gross MD Primary Care Provider Unavaila Ced Rosen MD Unavailable [phone] Virgie Trivedi POCKET BUILDER Unavailable [phone] Kirk Randle MD Primary Care Provider [phone] Alana Celaya POCKET BUILDER Unavailable [phone] Encounter Details Date Type Department Care Team Description 1940 Materials Director Report Medical Records [address] [place] [address] [facility] Social History Tobacco Use Types Packs/Day [...] on filedocumented in this encounter Care Teams Press Assistant Relationship Specialty Start Date End Date Minh Butts MD PCP - General 05/23/11 04/20/13 Octavio Gross MD PCP - General Internal Medicine 05/19/18 02/22/20 Kathie Le PA-C PCP - General Internal Medicine 02/23/20 07/11/20 Kirk Randle MD PCP - General Internal Medicine 07/12/20 06/04/21 Octavio Gross MD PCP - General 04/21/13 05/18/18 Kirk Randle MD PCP - General Internal Medicine 06/05/21 Ced Victoria MD [address] [place] [address] [address] [place], [place] [phone] Call Center Operator Cardiovascular Disease 04/05/21 Virgie Trivedi NP [address] [place] [address] [address] [place] [address] Nurse Practitioner Cardiology 04/05/21 Alana Celaya NP [address] [place] [address] [facility] [place] [address] Nurse Practitioner Cardiology 07/17/23 documented as of this encounter
--- OUTSIDE RECORDS SUMMARY | 2024-12-08 11:25 | XMS_ITS | Encounter Summary ---
Author Organization [facility] Address [address] [place] [address] Care Team Providers Care Ammonia Operator Name Role Phone Ced Victoria MD Unavailable [phone] Virgie Trivedi NP Unavailable [phone] Kirk Randle MD Primary Care Provider [phone] Alana Celaya NP Unavailable [phone] Encounter Details Date Type Department Care Team Description 08/07/2021 Optomechanical Technician Report Medical Records [address] [place] [id number] [place] [address] Social History Tobacco Use Types Packs/Day Years [...] on filedocumented in this encounter Care Teams Ammonia Operator Relationship Specialty Start Date End Date Kirk Randle MD [address] [place] [address] [address] [place] [address] PCP - General Internal Medicine 06/05/21 Ced Victoria MD [address] [place] [address] [address] [place] [address] Fitness Instructor Cardiovascular Disease 04/05/21 Virgie Trivedi NP [address] [place] [address] [address] [place] [address] Nurse Practitioner Cardiology 04/05/21 Alana Celaya NP [address] [place] [address] Dr [facility] [place] [address] Nurse Practitioner Cardiology 07/17/23 documented as of this encounter
--- OUTSIDE RECORDS SUMMARY | 2024-12-08 11:25 | XMS_ITS | Encounter Summary ---
Author Organization [facility] Address [address] [place] [address] Care Team Providers Care Construction Cost Estimator Name Role Phone Ced Victoria MD Unavailable [phone] Virgie Trivedi NP Unavailable [phone] Kirk Randle MD Primary Care Provider [phone] lAana Celaya NP Unavailable [phone] Encounter Details Date Type Department Care Team Description 09/07/2021 Home Health Certification Medical Records [address] [place] [address] Social History Tobacco Use Types Packs/Day Years [...] on filedocumented in this encounter Care Teams Construction Cost Estimator Relationship Specialty Start Date End Date Kirk Randle MD [address] [place] [address] [address] [place], [place] [id number] PCP - General Internal Medicine 06/05/21 Ced Victoria MD [address] [place] [address] [address] [place] [address] Ammonia Still Operator Cardiovascular Disease 04/05/21 Virgie Trivedi NP [address] [place] [address] [address] [place] [address] Nurse Practitioner Cardiology 04/05/21 Alana Celaya NP [address] [place] [address] Dr [facility] [place] [address] Nurse Practitioner Cardiology 07/17/23 documented as of this encounter
--- OUTSIDE RECORDS SUMMARY | 2024-12-08 11:25 | XMS_ITS | Encounter Summary ---
Author Organization [facility] Address [address] [place] [address] Care Team Providers Care Data Acquisition Technician Name Role Phone Octavio Gross MD Primary Care Provider Unavaila Kathie Cordova PA-C Primary Care Provider + Kirk Randle MD Primary Care Provider [phone] Ced Victoria MD Unavailable [phone] Virgie Trivedi NP Unavailable [phone] Kirk Randle MD Primary Care Provider [phone] Alana Celaya NP Unavailable [phone] Encounter Details Date Type Department Care Team Description 07/17/2018 Release of Information Medical Records [address] [place] [address] Abstract, Provider Social History Tobacco Use Types [...] on filedocumented in this encounter Care Teams Data Acquisition Technician Relationship Specialty Start Date End Date Octavio Gross MD PCP - General Internal Medicine 05/19/18 02/22/20 Kathie Le PA-C PCP - General Internal Medicine 02/23/20 07/11/20 Kirk Randle MD PCP - General Internal Medicine 07/12/20 06/04/21 Kirk Randle MD PCP - General Internal Medicine 06/05/21 Ced Victoria MD [address] [place] [address] [address] [place], [place] [id number] Cable Braider Cardiovascular Disease 04/05/21 Virgie Trivedi NP [address] [place] [address] [address] [place], [place] [id number] Nurse Practitioner Cardiology 04/05/21 Alana Celaya NP [address] [place] [address] Dr [facility] [place], [place] 37[address] Nurse Practitioner Cardiology 07/17/23 documented as of this encounter
--- OUTSIDE RECORDS SUMMARY | 2024-12-08 11:25 | XMS_ITS | Encounter Summary ---
Author Organization [facility] Address [address] [place] [address] Care Team Providers Care Entry Engineer Name Role Phone Joseph Gross MD Primary Care Provider Unavaila Kathie Cordova PA-C Primary Care Provider + Kirk Randle MD Primary Care Provider [phone] Ced Victoria MD Unavailable [phone] Virgie Trivedi NP Unavailable [phone] Kirk Randle MD Primary Care Provider [phone] Alana Celaya NP Unavailable [phone] Reason for Visit * Reason Onset Date Comments Arborist Feedback 07/18/2018 USMAN SO : [id number] Encounter Details Date Type Department Care Team Description 07/18/2018 Telephone Internal Medicine - [address], [address] [place] [address] Joseph Gross MD Arborist Feedback (USMAN ANTHONY : [id number]) Social History Tobacco Use Types Packs/Day Years [...] Ara Chua - 07/18/2018 12:02 PM EST [facility] [place] [facility] Review Request Submission Status [ Save Response to Batch ] Request: [id number] [facility] Trace #: [id number] Subscriber: VLADIMIR FLYNN Submitter : JOSEPH GROSS Submitter Type: Provider : 1940 Referral (#[id number]) Specialty Care Review Type: Initial Certification Status : Certified in total Service Type : Medical Care Place Of Service : Other Place of Service Visits : 6 Service Date : 07/18/2018-07/18/2019 Service Providers Provider Name ID Provider Type USMAN OCASIO NPI : [id number] Service Provider Follow up per document ion patient get this done every year * Telephone Encounter - Carolina Martinez - 07/18/2018 11:17 AM EST What insurance does the patient have today? [facility] Effective 06/09/09: BS will not retro [...] insurance must be obtained and registered in [facility] or their referral can not [...] this specialty: Patient saw Dr Gross at [facility] for the problem and was [...] Is this visit:Initial Visit Address of Specialist: [address] [place] [address], [address] [place], [place] Phone # of Specialist:[phone] Fax #: (if applicable): N/A Does patient have an appointment scheduled?: YES Date of appointment- (including a retro-request): 08/12/18 @ 10AM Is this appointment related to: Not MVA, WC or Surgery related documented in this encounter Plan of Treatment Not on file documented as of this encounter Visit Diagnoses Not on filedocumented in this encounter Care Teams Entry Engineer Relationship Specialty Start Date End Date Joseph Gross MD PCP - General Internal Medicine 05/19/18 02/22/20 Kathie Le PA-C PCP - General Internal Medicine 02/23/20 07/11/20 Kirk Randle MD PCP - General Internal Medicine 07/12/20 06/04/21 Kirk Randle MD PCP - General Internal Medicine 06/05/21 Ced Victoria MD [address] [place] [address] [address] [place] [address] Apprenticeship Training Representative Cardiovascular Disease 04/05/21 Virgie Trivedi NP [address] [place] [address] [address] [place], [place] [phone] Nurse Practitioner Cardiology 04/05/21 Alana Celaya NP [address] [place] [address] Dr Mccracken [facility] [place] [address] Nurse Practitioner Cardiology 07/17/23 documented as of this encounter
--- OUTSIDE RECORDS SUMMARY | 2024-12-08 11:25 | XMS_ITS | Encounter Summary ---
Author Organization [facility] Address [address] [place] [address] Care Team Providers Care Social Services Technician Name Role Phone Ced Victoria MD Unavailable [phone] Virgie Trivedi NP Unavailable [phone] Kirk Randle MD Primary Care Provider [phone] Alana Celaya NP Unavailable [phone] Reason for Visit * Reason Onset Date Comments VNA Call 08/17/2021 Encounter Details Date Type Department Care Team Description 08/17/2021 Telephone Internal Medicine - [address], [address] [place], [place] [id number] Kirk Randle MD [address] [place], [place] [phone] VNA Call Social History Tobacco Use Types [...] filedocumented in this encounter Care Teams Social Services Technician Relationship Specialty Start Date End Date Kirk Randle MD [address] [place] [address] [address] [place] [address] PCP - General Internal Medicine 06/05/21 Ced Victoria MD [address] [place] [address] [place] [address] Paralegal Internship Cardiovascular Disease 04/05/21 Virgie Trivedi NP [address] [place] [address] [address] [place] [address] Nurse Practitioner Cardiology 04/05/21 Alana Celaya NP [address] [place] [address] Dr [facility] [place] [address] Nurse Practitioner Cardiology 07/17/23 documented as of this encounter
--- OUTSIDE RECORDS SUMMARY | 2024-12-08 11:25 | XMS_ITS | Encounter Summary ---
Author Organization [facility] Address [address] [place] [address] Care Team Providers Care Access Nurse Name Role Phone Ced Victoria MD Unavailable [phone] Virgie Trivedi NP Unavailable [phone] Kirk Randle MD Primary Care Provider [phone] Alana Celaya NP Unavailable [phone] Reason for Visit * Reason Comments E-prescribe Rx Request Encounter Details Date Type Department Care Team Description 12/06/2021 Refill Cardio [facility] [address] [place] [address] [place] [address] Ced Victoria MD [address] [place] [address] [address] [place] [address] E-prescribe Rx Request Social History Tobacco Use [...] on filedocumented in this encounter Care Teams Access Nurse Relationship Specialty Start Date End Date Kirk Randle MD [address] [place] [address] [address] [place] [address] PCP - General Internal Medicine 06/05/21 Ced Victoria MD [address] [place] [place] [address] [address] [place] [address] Rn Hemo Dialysis Cardiovascular Disease 04/05/21 Virgie Trivedi NP [address] [place] [address] [address] [place] [address] Nurse Practitioner Cardiology 04/05/21 Alana Celaya NP [address] [place] [address] Dr [facility] [place] [address] Nurse Practitioner Cardiology 07/17/23 documented as of this encounter
--- OUTSIDE RECORDS SUMMARY | 2024-12-08 11:25 | XMS_ITS | Encounter Summary ---
Author Organization [facility] Address [address] [place] [address] Care Team Providers Care Sulfuric Acid Plant Supervisor Name Role Phone Ced Victoria MD Unavailable [phone] Virgie Trivedi NP Unavailable [phone] Kirk Randle MD Primary Care Provider [phone] Alana Celaya NP Unavailable [phone] Encounter Details Date Type Department Care Team Description 03/26/2023 Orders Only Medical Records [address] [place] [address] Kirk Randle MD [address] [place], [place] [phone] Social History Tobacco Use Types Packs/Day Years [...] on filedocumented in this encounter Care Teams Sulfuric Acid Plant Supervisor Relationship Specialty Start Date End Date Kirk Randle MD [address] [place] [address] DRIVE [address] [place] [address] PCP - General Internal Medicine 06/05/21 Ced Victoria MD [address] [place] [address] [address] [place] [address] Plater Production Cardiovascular Disease 04/05/21 Virgie Trivedi NP [address] [place] [address] [address]IVE [address] [place] [address] Nurse Practitioner Cardiology 04/05/21 Alana Celaya NP [address] [place] [address] Dr [facility] [place] [address] Nurse Practitioner Cardiology 07/17/23 documented as of this encounter
--- OUTSIDE RECORDS SUMMARY | 2024-12-08 11:25 | XMS_ITS | Encounter Summary ---
Author Organization [facility] Address [address] [place] [address] Care Team Providers Care Hypnotherapist Name Role Phone Ced Victoria MD Unavailable [phone] Virgie Trivedi NP Unavailable [phone] Kirk Randle MD Primary Care Provider [phone] Alana Celaya NP Unavailable [phone] Encounter Details Date Type Department Care Team Description 06/27/2021 Hospital Medical Records [address] [place] [address] Raffy Gardner MD [address] [address] Social History Tobacco Use Types [...] on filedocumented in this encounter Care Teams Hypnotherapist Relationship Specialty Start Date End Date Kirk Randle MD [address] [place] [address] [address]IVE [address] [place] [address] PCP - General Internal Medicine 06/05/21 Ced Victoria MD [address] [place] [address] [address]IVE [address] [place] [address] Content Architect Cardiovascular Disease 04/05/21 Virgie Trivedi NP [address] [place] [address] [address] [place] [address] Nurse Practitioner Cardiology 04/05/21 Alana Celaya NP [address] [place] [address] Dr [facility] [place] [address] Nurse Practitioner Cardiology 07/17/23 documented as of this encounter
--- OUTSIDE RECORDS SUMMARY | 2024-12-08 11:25 | XMS_ITS | Encounter Summary ---
Author Organization [facility] Address [address] [place] [address] Care Team Providers Care Cloth Napping Supervisor Name Role Phone Ced Victoria MD Unavailable [phone] Virgie Trivedi NP Unavailable [phone] Kirk Randle MD Primary Care Provider [phone] Alana Celaya NP Unavailable [phone] Encounter Details Date Type Department Care Team Description 12/18/2021 Geriatric Psychiatrist Report Medical Records [address] [place] [id number] [place] [address] Social History Tobacco Use Types Packs/Day Years [...] on filedocumented in this encounter Care Teams Cloth Napping Supervisor Relationship Specialty Start Date End Date Kirk Randle MD [address] [place] [address] [address] [place] [address] PCP - General Internal Medicine 06/05/21 Ced Victoria MD [address] [place] [address] [address] [place] [address] Tenant Selector Cardiovascular Disease 04/05/21 Virgie Trivedi NP [address] [place] [address] [address] [place] [address] Nurse Practitioner Cardiology 04/05/21 Alana Celaya NP [address] [place] [address] Dr [facility] [place] [address] Nurse Practitioner Cardiology 07/17/23 documented as of this encounter
--- OUTSIDE RECORDS SUMMARY | 2024-12-08 11:25 | XMS_ITS | Encounter Summary ---
Author Organization [facility] Address [address] [place] [address] Care Team Providers Care Courtesy Clerk Name Role Phone Octavio Gross MD Primary Care Provider Unavaila Kathie Cordova PA-C Primary Care Provider + Kirk Randle MD Primary Care Provider [phone] Ced Victoria MD Unavailable [phone] Virgie Trivedi NP Unavailable [phone] Kirk Randle MD Primary Care Provider [phone] Alana Celaya NP Unavailable [phone] Encounter Details Date Type Department Care Team Description 01/13/2019 Plant Quality Manager Report Medical Records [address] [place] [address] Rosalia Ocasio MD Social History Tobacco Use [...] on filedocumented in this encounter Care Teams Courtesy Clerk Relationship Specialty Start Date End Date Octavio Gross MD PCP - General Internal Medicine 05/19/18 02/22/20 Kathie Le PA-C PCP - General Internal Medicine 02/23/20 07/11/20 Kirk Randle MD PCP - General Internal Medicine 07/12/20 06/04/21 Kirk Randle MD PCP - General Internal Medicine 06/05/21 Ced Victoria MD [address] [place] [address] [address] [place] [address] Zipper Ironer Cardiovascular Disease 04/05/21 Virgie Trivedi NP [address] [place] [address] [address] [place], [place] [address] Nurse Practitioner Cardiology 04/05/21 Alana Celaya NP [address] [place] [address] Dr [facility] [place] [address] Nurse Practitioner Cardiology 07/17/23 documented as of this encounter
--- OUTSIDE RECORDS SUMMARY | 2024-12-08 11:25 | XMS_ITS | Encounter Summary ---
Author Organization [facility] Address [address] [place] [address] Care Team Providers Care Geotechnical Laboratory Technician Name Role Phone Octavio Gross MD Primary Care Provider Unavaila Kathie Cordova PA-C Primary Care Provider + Kirk Randle MD Primary Care Provider [phone] Ced Victoria MD Unavailable [phone] Virgie Trivedi NP Unavailable [phone] Kirk Randle MD Primary Care Provider [phone] Alana Celaya NP Unavailable [phone] Encounter Details Date Type Department Care Team Description 07/16/2018 Transfer Records Medical Records [address] [place] [address] Abstract, Provider Social History Tobacco Use Types [...] on filedocumented in this encounter Care Teams Geotechnical Laboratory Technician Relationship Specialty Start Date End Date Octavio Gross MD PCP - General Internal Medicine 05/19/18 02/22/20 Kathie Le PA-C PCP - General Internal Medicine 02/23/20 07/11/20 Kirk Randle MD PCP - General Internal Medicine 07/12/20 06/04/21 Kirk Randle MD PCP - General Internal Medicine 06/05/21 Ced Victoria MD [address] [place] [address] [address] [place] [address] Lipcoat Sprayer Cardiovascular Disease 04/05/21 Virgei Trivedi NP [address] [place] [address] [address]IVE [address] [place] [address] Nurse Practitioner Cardiology 04/05/21 Alana Celaya NP [address] [place] [address] Dr [facility] [place], [place] [address] Nurse Practitioner Cardiology 07/17/23 documented as of this encounter
--- OUTSIDE RECORDS SUMMARY | 2024-12-08 11:25 | XMS_ITS | Encounter Summary ---
Author Organization [facility] Address [address] [place] [address] Care Team Providers Care Electronic Technician Name Role Phone Ced Victoria MD Unavailable [phone] Virgie Trivedi NP Unavailable [phone] Kirk Randle MD Primary Care Provider [phone] Alana Celaya NP Unavailable [phone] Encounter Details Date Type Department Care Team Description 07/24/2021 Calculating Machine Mechanic Report Medical Records [address] [place] [id number] [place] [address] Social History Tobacco Use Types Packs/Day Years [...] on filedocumented in this encounter Care Teams Electronic Technician Relationship Specialty Start Date End Date Kirk Randle MD [address] [place] [address] [address] [place] [address] PCP - General Internal Medicine 06/05/21 Ced Victoria MD [address] [place] [address] [address] [place] [address] Psychiatric Rn Cardiovascular Disease 04/05/21 Virgie Trivedi NP [address] [place] [address] [address] [place] [address] Nurse Practitioner Cardiology 04/05/21 Alana Celaya NP [address] [place] [address] Dr [facility] [place] [address] Nurse Practitioner Cardiology 07/17/23 documented as of this encounter
--- OUTSIDE RECORDS SUMMARY | 2024-12-08 11:25 | XMS_ITS | Encounter Summary ---
Author Organization [facility] Address [address] [place] [address] Care Team Providers Care Fiber Optics Supervisor Name Role Phone Ced Victoria MD Unavailable [phone] Virgie Trivedi NP Unavailable [phone] Kirk Randle MD Primary Care Provider [phone] Alana Celaya NP Unavailable [phone] Encounter Details Date Type Department Care Team Description 12/04/2021 Lawyer Probate Report Medical Records [address] [place] [id number] [place] [address] Social History Tobacco Use Types Packs/Day Years [...] on filedocumented in this encounter Care Teams Fiber Optics Supervisor Relationship Specialty Start Date End Date Kirk Randle MD [address] [place] [address] [address] [place] [address] PCP - General Internal Medicine 06/05/21 Ced Victoria MD [address] [place] [address] [address] [place] [address] Fish Culturist Cardiovascular Disease 04/05/21 Virgie Trivedi NP [address] [place] [address] [address] [place] [address] Nurse Practitioner Cardiology 04/05/21 Alana Celaya NP [address] [place] [address] Dr [facility] [place] [place] [address] Nurse Practitioner Cardiology 07/17/23 documented as of this encounter
--- OUTSIDE RECORDS SUMMARY | 2024-12-08 11:25 | XMS_ITS | Encounter Summary ---
Author Organization [facility] Address [address] [place] [address] Care Team Providers Care Professional Driver Name Role Phone Octavio Gross MD Primary Care Provider Unavaila Kathie Cordova PA-C Primary Care Provider + Kirk Randle MD Primary Care Provider [phone] Ced Victoria MD Unavailable [phone] Virgie Trivedi NP Unavailable [phone] Kirk Randle MD Primary Care Provider [phone] Aalna Celaya NP Unavailable [phone] Encounter Details Date Type Department Care Team Description 09/18/2018 Upsetter Setter Up Report Medical Records [address] [place] [address] Rhys Wynn Social History Tobacco Use Types [...] on filedocumented in this encounter Care Teams Professional Driver Relationship Specialty Start Date End Date Octavio Gross MD PCP - General Internal Medicine 05/19/18 02/22/20 Kathie Le PA-C PCP - General Internal Medicine 02/23/20 07/11/20 Kirk Randle MD PCP - General Internal Medicine 07/12/20 06/04/21 Kirk Randle MD PCP - General Internal Medicine 06/05/21 Ced Victoria MD [address] [place] [address] [address] [place], [place] [id number] Color Checker Roving Or Yarn Cardiovascular Disease 04/05/21 Virgie Trivedi NP [address] [place] [address] [address] [place] [address] Nurse Practitioner Cardiology 04/05/21 Alana Celaya NP [address] [place] [address] Dr [facility] [place] [address] Nurse Practitioner Cardiology 07/17/23 documented as of this encounter
--- OUTSIDE RECORDS SUMMARY | 2024-12-08 11:25 | XMS_ITS | Encounter Summary ---
Author Organization [facility] Address [address] [place] [address] Care Team Providers Care Unemployment Insurance Hearing Officer Name Role Phone Ced Victoria MD Unavailable [phone] Virgie Trivedi NP Unavailable [phone] Kirk Randle MD Primary Care Provider [phone] Alana Celaya NP Unavailable [phone] Reason for Visit * Reason Onset Date Comments REFERRAL 06/03/2023 Encounter Details Date Type Department Care Team Description 06/03/2023 Telephone Vascular Surgery - [address] [address] Rosita Gardner MD [address] [address] REFERRAL Social History Tobacco Use [...] needs to start: 05/08/23 Jer Bradley Payor: [facility] / Plan: [employer] PREF HMO $10 [place] / Product Type: MEDICARE RISK documented in this encounter Plan of Treatment Not on file documented as of this encounter Visit Diagnoses Not on filedocumented in this encounter Care Teams Unemployment Insurance Hearing Officer Relationship Specialty Start Date End Date Kirk Randle MD [address] [place] [address] [address] [place] [address] PCP - General Internal Medicine 06/05/21 Ced Victoria MD [address] [place] [address] [address] [place] [address] Head Porter Cardiovascular Disease 04/05/21 Virgie Trivedi NP [address] [place] [address] [address] [place] [address] Nurse Practitioner Cardiology 04/05/21 Alana Celaya NP [address] [place] [address] Dr Mccracken [facility] [place] [address] Nurse Practitioner Cardiology 07/17/23 documented as of this encounter
--- OUTSIDE RECORDS SUMMARY | 2024-12-08 11:25 | XMS_ITS | Encounter Summary ---
Author Organization [facility] Address [address] [place] [address] Care Team Providers Care Watermaster Name Role Phone Ced Victoria MD Unavailable [phone] Virgie Trivedi NP Unavailable [phone] Kirk Randle MD Primary Care Provider [phone] Alana Celaya NP Unavailable [phone] Encounter Details Date Type Department Care Team Description 04/24/2024 Orders Only Internal Medicine - [address], [address] [place] [address] Kirk Randle MD [address] [place], [place] [id number] Social History Tobacco Use Types Packs/Day Years [...] on filedocumented in this encounter Care Teams Watermaster Relationship Specialty Start Date End Date Kirk Randle MD [address] [place] [address] [address] [place] [address] PCP - General Internal Medicine 06/05/21 Ced Victoria MD [address] [place] [address] [address] [place] [address] Convertible Top Installer Cardiovascular Disease 04/05/21 Virgie Trivedi NP [address] [place] [address] [address] [place] [address] Nurse Practitioner Cardiology 04/05/21 Alana Celaya NP [address] [place] [address] [facility] [place], [place] [id number] Nurse Practitioner Cardiology 07/17/23 documented as of this encounter
--- OUTSIDE RECORDS SUMMARY | 2024-12-08 11:25 | XMS_ITS | Encounter Summary ---
Author Organization [facility] Address [address] [place] [address] Care Team Providers Care Scorekeeper Name Role Phone Octavio Gross MD Primary Care Provider Unavaila Kathie Cordova PA-C Primary Care Provider + Kirk Randle MD Primary Care Provider [phone] Ced Victoria MD Unavailable [phone] Virgie Trivedi NP Unavailable [phone] Kirk Randle MD Primary Care Provider [phone] Alana Cleaya NP Unavailable [phone] Encounter Details Date Type Department Care Team Description 10/22/2018 Assembly Machine Tool Setter Report Medical Records [address] [place] [address] Rhys Wynn Social History Tobacco Use Types [...] on filedocumented in this encounter Care Teams Scorekeeper Relationship Specialty Start Date End Date Octavio Gross MD PCP - General Internal Medicine 05/19/18 02/22/20 Kathie Le PA-C PCP - General Internal Medicine 02/23/20 07/11/20 Kirk Randle MD PCP - General Internal Medicine 07/12/20 06/04/21 Kirk Randle MD PCP - General Internal Medicine 06/05/21 Ced Victoria MD [address] [place] [address] [address] [place], [place] [phone] Choir Leader Cardiovascular Disease 04/05/21 Virgie Trivedi NP [address] [place] [address] [address] [place] [address] Nurse Practitioner Cardiology 04/05/21 Alana Celaya NP [address] [place] [address] [facility] [place] [address] Nurse Practitioner Cardiology 07/17/23 documented as of this encounter
--- OUTSIDE RECORDS SUMMARY | 2024-12-08 11:25 | XMS_ITS | Encounter Summary ---
Author Organization [facility] Address [address] [place] [address] Care Team Providers Care Metal Furniture Repairer Name Role Phone Octavio Gross MD Primary Care Provider Unavaila Kathie Cordova PA-C Primary Care Provider + Kirk Randle MD Primary Care Provider [phone] Ced Victoria MD Unavailable [phone] Virgie Trivedi NP Unavailable [phone] Kirk Randle MD Primary Care Provider [phone] Alana Celaya NP Unavailable Reason for Visit * Reason Onset Date Comments Pre Op Visit 09/10/2018 Cardiac Clearanc e Encounter Details Date Type Department Care Team Description 09/10/2018 Telephone Internal Medicine - [address], [address] [place] [address] Tasneem Mena MD Pre Op Visit (Cardiac [...] filedocumented in this encounter Care Teams Metal Furniture Repairer Relationship Specialty Start Date End Date Octavio Gross MD PCP - General Internal Medicine 05/19/18 02/22/20 Kathie Le PA-C PCP - General Internal Medicine 02/23/20 07/11/20 Kirk Randle MD PCP - General Internal Medicine 07/12/20 06/04/21 Kirk Randle MD PCP - General Internal Medicine 06/05/21 Ced Victoria MD [address] [place] [address] [address] [place], [place] [phone] Aircraft Engine Assembler Cardiovascular Disease 04/05/21 Virgie Trivedi NP [address] [place] [address] [address] [place] [address] Nurse Practitioner Cardiology 04/05/21 Alana Celaya NP [address] [place] [address] [facility] [place], [place] [address] Nurse Practitioner Cardiology 07/17/23 documented as of this encounter
--- OUTSIDE RECORDS SUMMARY | 2024-12-08 11:25 | XMS_ITS | Encounter Summary ---
Author Organization [facility] Address [address] [place] [address] Care Team Providers Care Acoustical Logging Engineer Name Role Phone Octavio Gross MD Primary Care Provider Unavaila Kathie Cordova PA-C Primary Care Provider + Kirk Randle MD Primary Care Provider [phone] Ced Victoria MD Unavailable [phone] Virgie Trivedi NP Unavailable [phone] Kirk Randle MD Primary Care Provider [phone] Alana Celaya NP Unavailable [phone] Reason for Visit * Reason Comments E-prescribe Rx Request Encounter Details Date Type Department Care Team Description 10/08/2019 [facility] Internal Medicine - [address], [address] [place] [address] Octavio Gross MD E-prescribe Rx Request Social [...] N/A Patients current insurance carrier is: Payor: [facility] / Plan: [place]REF HMO $10 [place] / Product Type: MEDICARE RISK documented in this encounter Plan of Treatment Not on file documented as of this encounter Visit Diagnoses Not on filedocumented in this encounter Care Teams Acoustical Logging Engineer Relationship Specialty Start Date End Date Octavio Gross MD PCP - General Internal Medicine 05/19/18 02/22/20 Kathie Le PA-C PCP - General Internal Medicine 02/23/20 07/11/20 Kirk Randle MD PCP - General Internal Medicine 07/12/20 06/04/21 Kirk Randle MD PCP - General Internal Medicine 06/05/21 Ced Victoria MD [address] [place] [address] [address] [place] [address] Clerk Cardiovascular Disease 04/05/21 Virgie Trivedi NP [address] [place] [address] [address] [place] [address] Nurse Practitioner Cardiology 04/05/21 Alana Celaya NP [address] [place] [address] Dr [facility] [address] Nurse Practitioner Cardiology 07/17/23 documented as of this encounter
--- OUTSIDE RECORDS SUMMARY | 2024-12-08 11:25 | XMS_ITS | Encounter Summary ---
Author Organization [facility] Address [address] [place] [address] Care Team Providers Care Rim Turning Machine Operator Name Role Phone Octavio Gross MD Primary Care Provider Unavaila Kathie Cordova PA-C Primary Care Provider + Kirk Randle MD Primary Care Provider [phone] Ced Victoria MD Unavailable [phone] Virgie Trivedi NP Unavailable [phone] Kirk Randle MD Primary Care Provider [phone] Alana Celaya NP Unavailable [phone] Encounter Details Date Type Department Care Team Description 10/13/2018 Hospital Medical Records [address] [place] [id number] [place] [address] Social History Tobacco Use Types Packs/Day Years [...] on filedocumented in this encounter Care Teams Rim Turning Machine Operator Relationship Specialty Start Date End Date Octavio Gross MD PCP - General Internal Medicine 05/19/18 02/22/20 Kathie Le PA-C PCP - General Internal Medicine 02/23/20 07/11/20 Kirk Randle MD PCP - General Internal Medicine 07/12/20 06/04/21 Kirk Randle MD PCP - General Internal Medicine 06/05/21 Ced Victoria MD [address] [place] [address] [address] [place] [address] Cardiology Rn Cardiovascular Disease 04/05/21 Virgie Trivedi NP [address] [place] [address] [address] [place], [place] [address] Nurse Practitioner Cardiology 04/05/21 Alana Celaya NP [address] [place] [address] Dr [facility] [place], [place] [address] Nurse Practitioner Cardiology 07/17/23 documented as of this encounter
--- OUTSIDE RECORDS SUMMARY | 2024-12-08 11:25 | XMS_ITS | Encounter Summary ---
Author Organization [facility] Address [address] [place] [address] Care Team Providers Care Core Placer Name Role Phone Ced Victoria MD Unavailable [phone] Virgie Trivedi NP Unavailable [phone] Kirk Randle MD Primary Care Provider [phone] Alana Celaya NP Unavailable [phone] Encounter Details Date Type Department Care Team Description 09/07/2021 Orders Only Internal Medicine - [address], [address] [place] [address] Kirk Randle MD [address] [place], [place] [phone] Social History Tobacco Use Types Packs/Day Years [...] on filedocumented in this encounter Care Teams Core Placer Relationship Specialty Start Date End Date Kirk Randle MD [address] [place] [address] [address] [place] [address] PCP - General Internal Medicine 06/05/21 Ced Victoria MD [address] [place] [address] [address] [place] [address] Correctional Facility Psychiatrist Cardiovascular Disease 04/05/21 Virgie Trivedi NP [address] [place] [address] [address] [place] [address] Nurse Practitioner Cardiology 04/05/21 Alana Celaya NP [address] [place] [address] Dr [facility] [place] [address] Nurse Practitioner Cardiology 07/17/23 documented as of this encounter
--- OUTSIDE RECORDS SUMMARY | 2024-12-08 11:25 | XMS_ITS | Encounter Summary ---
Author Organization [facility] Address [address] [place] [address] Care Team Providers Care Inspector Cold Working Name Role Phone Ced Victoria MD Unavailable [phone] Virgie Trivedi NP Unavailable [phone] Kirk Randle MD Primary Care Provider [phone] Alana Celaya NP Unavailable [phone] Encounter Details Date Type Department Care Team Description 08/16/2021 Wire Tinner Report Medical Records [address] [place] [address] Ileana Renee MD Social History Tobacco Use [...] filedocumented in this encounter Care Teams Inspector Cold Working Relationship Specialty Start Date End Date Kirk Randle MD [address] [place] [address] [address] [place] [address] PCP - General Internal Medicine 06/05/21 Ced Victoria MD [address] [place] [address] [address] [place] [address] Janitor Cleaner Cardiovascular Disease 04/05/21 Virgie Trivedi NP [address] [place] [address] [address] [place] [address] Nurse Practitioner Cardiology 04/05/21 Alana Celaya NP [address] [place] [address] Dr [facility] [place] [address] Nurse Practitioner Cardiology 07/17/23 documented as of this encounter
--- OUTSIDE RECORDS SUMMARY | 2024-12-08 11:26 | XMS_ITS | Encounter Summary ---
Author Organization [facility] Address [address] [place] [address] Care Team Providers Care Nursery Rn Name Role Phone Ced Victoria MD Unavailable [phone] Virgie Trivedi NP Unavailable [phone] Kirk Randle MD Primary Care Provider [phone] Alana Celaya NP Unavailable [phone] Reason for Visit * Reason Onset Date Comments VNA Call 12/01/2021 Encounter Details Date Type Department Care Team Description 12/01/2021 Telephone Pulmonology - [address] [place] [address] Kirk Randle MD [address] [place], [place] [phone] VNA Call Social History Tobacco Use Types [...] provider ,also need to follow-up with a security dispatcher. * Telephone Encounter - Kristen Barragan R.N. [...] on filedocumented in this encounter Care Teams Nursery Rn Relationship Specialty Start Date End Date Kirk Randle MD [address] [place] [address] [place] [address] PCP - General Internal Medicine 06/05/21 Ced Victoria MD [address] [place] [address] [address] [place] [address] Freezer Machine Operator Cardiovascular Disease 04/05/21 Virgie Trivedi NP [address] [place] [address] [address] [place] [address] Nurse Practitioner Cardiology 04/05/21 Alana Celaya NP [address] [place] [address] [facility] [place] [address] Nurse Practitioner Cardiology 07/17/23 documented as of this encounter
--- OUTSIDE RECORDS SUMMARY | 2024-12-08 11:26 | XMS_ITS | Encounter Summary ---
Author Organization [facility] Address [address] [place] [address] Care Team Providers Care Manifold Builder Name Role Phone Ced Victoria MD Unavailable [phone] Virgie Trivedi NP Unavailable [phone] Kirk Randle MD Primary Care Provider [phone] Alana Celaya NP Unavailable [phone] Encounter Details Date Type Department Care Team Description 11/21/2021 Operations And Maintenance Manager Report Medical Records [address] [place] [id number] [place] [address] Social History Tobacco Use Types Packs/Day Years [...] on filedocumented in this encounter Care Teams Manifold Builder Relationship Specialty Start Date End Date Kirk Randle MD [address] [place] [address] [address] [place] [address] PCP - General Internal Medicine 06/05/21 Ced Victoria MD [address] [place] [address] [address] [place] [address] District Resource Officer Cardiovascular Disease 04/05/21 Virgie Trivedi NP [address] [place] [address] [address] [place] [address] Nurse Practitioner Cardiology 04/05/21 Alana Celaya NP [address] [place] [address] [facility] [address] Nurse Practitioner Cardiology 07/17/23 documented as of this encounter
--- OUTSIDE RECORDS SUMMARY | 2024-12-08 11:26 | XMS_ITS ---
Author Organization [facility] Address [address] [place] [address] Care Team Providers Care Accordion Maker Name Role Phone Kirk Randle MD Primary Care Provider Unavailab Anuradha Hobbs Unavailable [phone] REASON FOR VISIT Question about Mupirocin Encounters Encounter Location Date Provider Diagnosis [address] [address] 10/21/2024 Anuradha Hermosillo Plan Of Treatment Next Appt Details Provider Name:Anuradha amado, 12/22/2024 03:15:00 PM, [address] [place], [address], Progress Notes * Vladimir FLYNNDOB:1940 (84 yo M)Acc No.[id number]:10/21/2024 Patient:?Vladimir FLYNN :1940???Age:84 Y???Sex:Male Address:[address] [facility], [place], [address] * true * Date:? Generated for Printi ng/Faxing/eTransmitting on:?12/08/2024 11:26 AM EDT
--- OUTSIDE RECORDS SUMMARY | 2024-12-08 11:26 | XMS_ITS | Encounter Summary ---
Author Organization [facility] Address [address] [place] [address] Care Team Providers Care Sales And Customer Relations Rep Name Role Phone Ced Victoria MD Unavailable [phone] Virgie Trivedi NP Unavailable [phone] Kirk Randle MD Primary Care Provider [phone] Alana Celaya NP Unavailable [phone] Reason for Visit * Reason Onset Date Comments REFERRAL 11/06/2021 Encounter Details Date Type Department Care Team Description 11/06/2021 Telephone Vascular Surgery - [address] [address] Tyrese [place] MD [address] [address] REFERRAL Social History Tobacco Use [...] encounter Miscellaneous Notes * Telephone Encounter - Elise tomasa Valverdez - 11/06/2021 8:38 AM EST Request for a referral to a Yane Specialist for a patient with a Yane PCP. If patient does NOT have a Yane PCP they must obtain a referral from their PCP before being seen-do not submit request to Referrals department-contact patient. Specialty patient is being referred to: VASCULAR Name of Specialist patient is seeing: TYRESE GARDNER Reason/diagnosis for visit: PAD Date of appoinment: 11/06/21 If retro, date referral needs to start: Jer Bradley Payor: [facility] / Plan: [place] PREF HMO $10 [place] / Product Type: MEDICARE RISK documented in this encounter Plan of Treatment Not on file documented as of this encounter Visit Diagnoses Not on filedocumented in this encounter Care Teams Sales And Customer Relations Rep Relationship Specialty Start Date End Date Kirk Randle MD [address] [place] [address] [address] [place] [address] PCP - General Internal Medicine 06/05/21 Ced Victoria MD [address] [place] [address] [address] [place] [address] Manager Study Cardiovascular Disease 04/05/21 Virgie Trivedi NP [address] [place] [address] [address] [place] [address] Nurse Practitioner Cardiology 04/05/21 Alana Celaya NP [address] [place] [address] [facility] [place] [address] Nurse Practitioner Cardiology 07/17/23 documented as of this encounter
--- OUTSIDE RECORDS SUMMARY | 2024-12-08 11:26 | XMS_ITS | Encounter Summary ---
Author Organization [facility] Address [address] [place] [address] Care Team Providers Care Online Program Coordinator Name Role Phone Ced Victoria MD Unavailable [phone] Virgie Trivedi NP Unavailable [phone] Kirk Randle MD Primary Care Provider [phone] Alana Celaya NP Unavailable [phone] Encounter Details Date Type Department Care Team Description 10/10/2021 Home Health Certification Medical Records [address] [place] [address] Social History Tobacco Use Types Packs/Day Years [...] on filedocumented in this encounter Care Teams Online Program Coordinator Relationship Specialty Start Date End Date Kirk Randle MD [address] [place] [address] [address] [place] [address] PCP - General Internal Medicine 06/05/21 Ced Victoria MD [address] [place] [address] [address] [place] [address] Gear Finisher Cardiovascular Disease 04/05/21 Virgie Trivedi NP [address] [place] [address] [address] [place] [address] Nurse Practitioner Cardiology 04/05/21 Alana Celaya NP [address] [place] [address] [facility] [place] [address] Nurse Practitioner Cardiology 07/17/23 documented as of this encounter
--- OUTSIDE RECORDS SUMMARY | 2024-12-08 11:26 | XMS_ITS | Encounter Summary ---
Author Organization [facility] Address [address] [place] [address] Care Team Providers Care Nurse Auditor Name Role Phone Ced Victoria MD Unavailable [phone] Virgie Trivedi NP Unavailable [phone] Kirk Randle MD Primary Care Provider [phone] Alana Celaya NP Unavailable [phone] Reason for Visit * Reason Onset Date Comments VNA Call 11/22/2021 Encounter Details Date Type Department Care Team Description 11/22/2021 Telephone Internal Medicine - [address], [address] [place], [place] [address] Kirk Randle MD [address] [place], [place] [phone] VNA Call Social History Tobacco Use Types [...] - 11/22/2021 9:39 AM EDT Veronica from [facility] calling with INR of 5.5 for patient. States will hoild coumadin for today and recheck tomorrow. documented in this encounter Plan of Treatment Not on file documented as of this encounter Visit Diagnoses Not on filedocumented in this encounter Care Teams Nurse Auditor Relationship Specialty Start Date End Date Kirk Randle MD [address] [place] [address] [address] [place] [address] PCP - General Internal Medicine 06/05/21 Ced Victoria MD [address] [place] [address] [address] [place] [address] Summer Camp Counselor Cardiovascular Disease 04/05/21 Virgie Trivedi NP [address] [place] [address] [address] [place] [address] Nurse Practitioner Cardiology 04/05/21 Alana Celaya NP [address] [place] [address] Dr [facility] [place] [address] Nurse Practitioner Cardiology 07/17/23 documented as of this encounter
--- OUTSIDE RECORDS SUMMARY | 2024-12-08 11:26 | XMS_ITS | Encounter Summary ---
Author Organization [facility] Address [address] [place] [address] Care Team Providers Care Vet Assistant Name Role Phone Ced Victoria MD Unavailable [phone] Virgie Trivedi NP Unavailable [phone] Kirk Randle MD Primary Care Provider [phone] Alana Celaya NP Unavailable [phone] Encounter Details Date Type Department Care Team Description 10/24/2022 Hospital Medical Records [address] [place] [address] Felix Carlton DPM Social History Tobacco Use [...] on filedocumented in this encounter Care Teams Vet Assistant Relationship Specialty Start Date End Date Kirk Randle MD [address] [place] [address] [address] [place] [address] PCP - General Internal Medicine 06/05/21 Ced Victoria MD [address] [place] [address] [address] [place] [address] Forming Roll Operator Heavy Duty Cardiovascular Disease 04/05/21 Virgie Trivedi NP [address] [place] [address] [address] [place] [address] Nurse Practitioner Cardiology 04/05/21 Alana Celaya NP [address] [place] [address] [facility] [place] [address] Nurse Practitioner Cardiology 07/17/23 documented as of this encounter
--- OUTSIDE RECORDS SUMMARY | 2024-12-08 11:26 | XMS_ITS | Encounter Summary ---
Author Organization [facility] Address [address] [place] [address] Care Team Providers Care Software Controls Engineer Name Role Phone Ced Victoria MD Unavailable [phone] Virgie Trivedi NP Unavailable [phone] Kirk Randle MD Primary Care Provider [phone] Alana Celaya NP Unavailable [phone] Encounter Details Date Type Department Care Team Description 10/17/2021 Branch Customer Service Representative Report Medical Records [address] [place] [address] Abstract, Provider Social History Tobacco Use Types [...] on filedocumented in this encounter Care Teams Software Controls Engineer Relationship Specialty Start Date End Date Kirk Randle MD [address] [place] [address] [address] [place] [address] PCP - General Internal Medicine 06/05/21 Ced Victoria MD [address] [place] [address] [address] [place] [address] Explosives Truck Driver Cardiovascular Disease 04/05/21 Virgie Trivedi NP [address] [place] [address] [address] [place] [address] Nurse Practitioner Cardiology 04/05/21 Alana Celaya NP [address] [place] [address] Dr [facility] [place] [address] Nurse Practitioner Cardiology 07/17/23 documented as of this encounter
--- OUTSIDE RECORDS SUMMARY | 2024-12-08 11:26 | XMS_ITS | Encounter Summary ---
Author Organization [facility] Address [address] [place] [address] Care Team Providers Care Elevator Repair Mechanic Name Role Phone Ced Victoria MD Unavailable [phone] Virgie Trivedi NP Unavailable [phone] Kirk Randle MD Primary Care Provider [phone] Alana Celaya NP Unavailable [phone] Encounter Details Date Type Department Care Team Description 11/07/2021 Repair Clerk Report Medical Records [address] [place] [id number] [place] [address] Social History Tobacco Use Types Packs/Day Years [...] filedocumented in this encounter Care Teams Elevator Repair Mechanic Relationship Specialty Start Date End Date Kirk Randle MD [address] [place] [address] [address] [place] [address] PCP - General Internal Medicine 06/05/21 Ced Victoria MD [address] [place] [address] [address] [place] [address] Recreational Counselor Cardiovascular Disease 04/05/21 Virgie Trivedi NP [address] [place] [address] [address] [place] [address] Nurse Practitioner Cardiology 04/05/21 Alana Celaya NP [address] [place] [address] [facility] [place] [address] Nurse Practitioner Cardiology 07/17/23 documented as of this encounter
--- OUTSIDE RECORDS SUMMARY | 2024-12-08 11:26 | XMS_ITS | Encounter Summary ---
Author Organization [facility] Address [address] [place] [address] Care Team Providers Care Kitchen Cleaner Name Role Phone Ced Victoria MD Unavailable +[phone] Virgie Trivedi NP Unavailable +[phone] Kirk Randle MD Primary Care Provider [phone] Alana Celaya NP Unavailable [phone] Encounter Details Date Type Department Care Team Description 10/28/2022 Hospital Medical Records [address] [place] [address] Marielos Rosales MD Social History Tobacco Use [...] on filedocumented in this encounter Care Teams Kitchen Cleaner Relationship Specialty Start Date End Date Kirk Randle MD [address] [place] [address] [address] [place] [address] PCP - General Internal Medicine 06/05/21 Ced Victoria MD [address] [place] [address] [address] [place] [address] Inspector Clip On Sunglasses Cardiovascular Disease 04/05/21 Virgie Trivedi NP [address] [place] [address] [address] [place] [address] Nurse Practitioner Cardiology 04/05/21 Alana Celaya NP [address] [place] [address] [facility] [place] [address] Nurse Practitioner Cardiology 07/17/23 documented as of this encounter
--- OUTSIDE RECORDS SUMMARY | 2024-12-08 11:26 | XMS_ITS | Encounter Summary ---
Author Organization [facility] Address [address] [place] [address] Care Team Providers Care Microfilm Camera Operator Name Role Phone Ced Victoria MD Unavailable [phone] Virgie Trivedi NP Unavailable [phone] Kirk Randle MD Primary Care Provider [phone] Alana Celaya NP Unavailable +[phone] Encounter Details Date Type Department Care Team Description 10/25/2022 [facility] Vascular Surgery [address] [place] [id number] Francine Schofield PA-C Social History Tobacco [...] on filedocumented in this encounter Care Teams Microfilm Camera Operator Relationship Specialty Start Date End Date Kirk Randle MD [address] [place] [address] [address] [place] [address] PCP - General Internal Medicine 06/05/21 Ced Victoria MD [address] [place] [address] [address] [place] [address] Operations Engineer Cardiovascular Disease 04/05/21 Virgie Trivedi NP [address] [place] [address] [address] [place] [address] Nurse Practitioner Cardiology 04/05/21 Alana Celaya NP [address] [place] [address] [facility] [place] [address] Nurse Practitioner Cardiology 07/17/23 documented as of this encounter
--- OUTSIDE RECORDS SUMMARY | 2024-12-08 11:26 | XMS_ITS | Encounter Summary ---
Author Organization [facility] Address [address] [place] [address] Care Team Providers Care Band Log Mill And Carriage Operator Name Role Phone Octavio Gross MD Primary Care Provider Unavaila Kathie Cordova PA-C Primary Care Provider + Kirk Randle MD Primary Care Provider [phone] Ced Victoria MD Unavailable [phone] Virgie Trivedi NP Unavailable [phone] Kirk Randle MD Primary Care Provider +[phone] Alana Celaya NP Unavailable [phone] Encounter Details Date Type Department Care Team Description 07/09/2019 Old Medical Records Medical Records [address] [place] [address] Abstract, Provider Social History Tobacco Use Types [...] filedocumented in this encounter Care Teams Band Log Mill And Carriage Operator Relationship Specialty Start Date End Date Octavio Gross MD PCP - General Internal Medicine 05/19/18 02/22/20 Kathie Le PA-C PCP - General Internal Medicine 02/23/20 07/11/20 Kirk Randle MD PCP - General Internal Medicine 07/12/20 06/04/21 Kirk Randle MD PCP - General Internal Medicine 06/05/21 Ced Victoria MD [address] [place] [address] [address] [place], [place] [phone] Waste Water Worker Cardiovascular Disease 04/05/21 Virgie Trivedi NP [address] [place] [address] [address] [place], [place] [address] Nurse Practitioner Cardiology 04/05/21 Alana Celaya NP [address] [place] [address] [facility] [place], [place] [address] Nurse Practitioner Cardiology 07/17/23 documented as of this encounter
--- OUTSIDE RECORDS SUMMARY | 2024-12-08 11:26 | XMS_ITS | Encounter Summary ---
Author Organization [facility] Address [address] [place] [address] Care Team Providers Care Turnaround Engineer Name Role Phone Octavio Gross MD Primary Care Provider Unavaila Kathie Cordova PA-C Primary Care Provider + Kirk Randle MD Primary Care Provider [phone] Ced Victoria MD Unavailable [phone] Virgie Trivedi NP Unavailable [phone] Kirk Randle MD Primary Care Provider [phone] Alana Celaya NP Unavailable [phone] Encounter Details Date Type Department Care Team Description 09/16/2019 Release of Information Medical Records [address] [place] [address] Abstract, Provider Social History Tobacco Use Types [...] on filedocumented in this encounter Care Teams Turnaround Engineer Relationship Specialty Start Date End Date Octavio Gross MD PCP - General Internal Medicine 05/19/18 02/22/20 Kathie Le PA-C PCP - General Internal Medicine 02/23/20 07/11/20 Kirk Randle MD PCP - General Internal Medicine 07/12/20 06/04/21 Kirk Randle MD PCP - General Internal Medicine 06/05/21 Ced Victoria MD [address] [place] [address] [address] [place], [place] [phone] Veterinary Attendant Cardiovascular Disease 04/05/21 Virgie Trivedi NP [address] [place] [address] [address] [place], [place] [phone] Nurse Practitioner Cardiology 04/05/21 Alana Celaya NP [address] [place] [address] [facility] [place], [place] [address] Nurse Practitioner Cardiology 07/17/23 documented as of this encounter
--- OUTSIDE RECORDS SUMMARY | 2024-12-08 11:26 | XMS_ITS ---
Author Organization [facility] Address [address] [place] [address] Care Team Providers Care Shake Sawyer Name Role Phone Kirk Randle MD Primary Care Provider UnavailAnuradha Camp [phone] REASON FOR VISIT wound at the base of the heel Encounters Encounter Location Date Provider Diagnosis [address] [phone] 11/02/2024 Anuradha Hermosillo Plan Of Treatment Next Appt Details Provider Name:Anuradha amado, 12/22/2024 03:15:00 PM, [address] [place] [address], [phone], Progress Notes * Vladimir FLYNNDOB:1940 (84 yo M)Acc No.[id number]:11/02/2024 Patient:?Vladimir FLYNN :1940???Age:84 Y???Sex:Male Address:[address] [facility], [place], [address] * true * Date:? Generated for Printi ng/Faxing/eTransmitting on:?12/08/2024 11:25 AM EDT
--- OUTSIDE RECORDS SUMMARY | 2024-12-08 11:26 | XMS_ITS | Encounter Summary ---
Author Organization [facility] Address [address] [place] [address] Care Team Providers Care Public Health Training Assistant Name Role Phone Ced Victoria MD Unavailable +[phone] Virgie Trivedi NP Unavailable [phone] Kirk Randle MD Primary Care Provider [phone] Alana Celaya NP Unavailable [phone] Encounter Details Date Type Department Care Team Description 12/26/2022 Hospital Medical Records [address] [place] [address] Felix Carlton DPM Social History Tobacco Use [...] on filedocumented in this encounter Care Teams Public Health Training Assistant Relationship Specialty Start Date End Date Kirk Randle MD [address] [place] [address] [address] [place] [address] PCP - General Internal Medicine 06/05/21 Ced Victoria MD [address] [place] [address] [address] [place] [address] Annealing Furnace Tender Cardiovascular Disease 04/05/21 Virgie Trivedi NP [address] [place] [address] [address] [place] [address] Nurse Practitioner Cardiology 04/05/21 Alana Celaya NP [address] [place] [address] [facility] [place] [address] Nurse Practitioner Cardiology 07/17/23 documented as of this encounter
--- OUTSIDE RECORDS SUMMARY | 2024-12-08 11:26 | XMS_ITS | Encounter Summary ---
Author Organization [facility] Address [address] [place] [address] Care Team Providers Care Technology Intern Name Role Phone Ced Victoria MD Unavailable [phone] Virgie Trivedi NP Unavailable +[phone] iKrk Randle MD Primary Care Provider [phone] Alana Celaya NP Unavailable [phone] Encounter Details Date Type Department Care Team Description 11/13/2022 Home Health Certification Medical Records [address] [place] [address] Social History Tobacco Use Types Packs/Day Years [...] on filedocumented in this encounter Care Teams Technology Intern Relationship Specialty Start Date End Date Kirk Randle MD [address] [place] [address] [address]IVE [address] [place] [address] PCP - General Internal Medicine 06/05/21 Ced Victoria MD [address] [place] [address] [address] [place] [address] Healthcare Specialist Cardiovascular Disease 04/05/21 Virgie Trivedi NP [address] [place] [address] [address] [place] [address] Nurse Practitioner Cardiology 04/05/21 Alana Celaya NP [address] [place] [address] [facility] [place] [address] Nurse Practitioner Cardiology 07/17/23 documented as of this encounter
--- OUTSIDE RECORDS SUMMARY | 2024-12-08 11:26 | XMS_ITS | Encounter Summary ---
Author Organization [facility] Address [address] [place] [address] Care Team Providers Care Guidance And Control System Engineer Name Role Phone Ced Victoria MD Unavailable [phone] Virgie Trivedi NP Unavailable +[phone] Kirk Randle MD Primary Care Provider [phone] Alana Celaya NP Unavailable [phone] Encounter Details Date Type Department Care Team Description 09/25/2021 Cardiac Monitor Technician Report Medical Records [address] [place] [id number] [place] [address] Social History Tobacco Use Types Packs/Day Years [...] on filedocumented in this encounter Care Teams Guidance And Control System Engineer Relationship Specialty Start Date End Date Kirk Randle MD [address] [place] [address] [address] [place] [address] PCP - General Internal Medicine 06/05/21 Ced Victoria MD [address] [place] [address] [address] [place] [address] Account Specialist Cardiovascular Disease 04/05/21 Virgie Trivedi NP [address] [place] [address] [address] [place], [place] [phone] Nurse Practitioner Cardiology 04/05/21 Alana Celaya NP [address] [place] [address] [facility] [place] [address] Nurse Practitioner Cardiology 07/17/23 documented as of this encounter
--- OUTSIDE RECORDS SUMMARY | 2024-12-08 11:26 | XMS_ITS | Encounter Summary ---
Author Organization [facility] Address [address] [place] [address] Care Team Providers Care Soap Worker Name Role Phone Ced Victoria MD Unavailable [phone] Virgie Trivedi NP Unavailable [phone] Kirk Randle MD Primary Care Provider [phone] Alana Celaya NP Unavailable [phone] Encounter Details Date Type Department Care Team Description 2023 Orders Only Medical Records [address] [place] [address] Felix Carlton DPM Social History Tobacco Use [...] on filedocumented in this encounter Care Teams Soap Worker Relationship Specialty Start Date End Date Kirk Randle MD [address] [place] [address] [address] [place] [address] PCP - General Internal Medicine 06/05/21 Ced Victoria MD [address] [place] [address] [address] [place] [address] Airset Molder Cardiovascular Disease 04/05/21 Virgie Trivedi NP [address] [place] [address] [address] [place] [address] Nurse Practitioner Cardiology 04/05/21 Alana Celaya NP [address] [place] [address] [facility] [place] [address] Nurse Practitioner Cardiology 07/17/23 documented as of this encounter
--- OUTSIDE RECORDS SUMMARY | 2024-12-08 11:26 | XMS_ITS | Encounter Summary ---
Author Organization [facility] Address [address] [place] [address] Care Team Providers Care Manager Student Services Name Role Phone Ced Victoria MD Unavailable [phone] Virgie Trivedi NP Unavailable [phone] Kirk Randle MD Primary Care Provider [phone] Alana Celaya NP Unavailable [phone] Encounter Details Date Type Department Care Team Description 05/17/2023 Telephone Internal Medicine - [address], [address] [place], [place] [phone] Kirk Randle MD [address] [place], [place] [id number] Social History Tobacco Use Types Packs/Day Years [...] filedocumented in this encounter Care Teams Manager Student Services Relationship Specialty Start Date End Date Kirk Ranlde MD [address] [place] [address] [address] [place] [address] PCP - General Internal Medicine 06/05/21 Ced Victoria MD [address] [place] [address] [address] [place] [address] Junior Web Developer Cardiovascular Disease 04/05/21 Virgie Trivedi NP [address] [place] [address] [address] [place] [address] Nurse Practitioner Cardiology 04/05/21 Alana Celaya NP [address] [place] [address] [facility] [place] [address] Nurse Practitioner Cardiology 07/17/23 documented as of this encounter
--- OUTSIDE RECORDS SUMMARY | 2024-12-08 11:26 | XMS_ITS | Encounter Summary ---
Author Organization [facility] Address [address] [place] [address] Care Team Providers Care Excel Specialist Name Role Phone Octavio Gross MD Primary Care Provider Unavaila Kathie Cordova PA-C Primary Care Provider + Kirk Randle MD Primary Care Provider [phone] Ced Victoria MD Unavailable [phone] Virgie Trivedi NP Unavailable [phone] Kirk Randle MD Primary Care Provider [phone] Alana Celaya NP Unavailable [phone] Encounter Details Date Type Department Care Team Description 06/17/2019 Orders Only Medical Records [address] [place] [address] Abstract, Provider Social History Tobacco Use Types [...] on filedocumented in this encounter Care Teams Excel Specialist Relationship Specialty Start Date End Date Octavio Gross MD PCP - General Internal Medicine 05/19/18 02/22/20 Kathie Le PA-C PCP - General Internal Medicine 02/23/20 07/11/20 Kirk Randle MD PCP - General Internal Medicine 07/12/20 06/04/21 Kirk Randle MD PCP - General Internal Medicine 06/05/21 Ced Victoria MD [address] [place] [address] [address] [place] [address] Green Chain Offbearer Cardiovascular Disease 04/05/21 Virgie Trivedi NP [address] [place] [address] [address] [place], [place] [address] Nurse Practitioner Cardiology 04/05/21 Alana Celaya NP [address] [place] [address] [facility] [place] [address] Nurse Practitioner Cardiology 07/17/23 documented as of this encounter
--- OUTSIDE RECORDS SUMMARY | 2024-12-08 11:26 | XMS_ITS | Encounter Summary ---
Author Organization [facility] Address [address] [place] [address] Care Team Providers Care Deck And Hull Assembler Name Role Phone Ced Victoria MD Unavailable [phone] Virgie Trivedi NP Unavailable +[phone] Kirk Randle MD Primary Care Provider [phone] Alana Celaya NP Unavailable [phone] Encounter Details Date Type Department Care Team Description 04/29/2023 Orders Only Medical Records [address] [place] [address] Abstract, Provider Social History Tobacco Use Types [...] on filedocumented in this encounter Care Teams Deck And Hull Assembler Relationship Specialty Start Date End Date Kirk Randle MD [address] [place] [address] [address] [place] [address] PCP - General Internal Medicine 06/05/21 Ced Victoria MD [address] [place] [address] [address] [place] [address] Cd Mixer Helper Cardiovascular Disease 04/05/21 Virgie Trivedi NP [address] [place] [address] [address] [place] [address] Nurse Practitioner Cardiology 04/05/21 Alnaa Celaya NP [address] [place] [address] [facility] [place] [address] Nurse Practitioner Cardiology 07/17/23 documented as of this encounter
--- OUTSIDE RECORDS SUMMARY | 2024-12-08 11:26 | XMS_ITS | Encounter Summary ---
Author Organization [facility] Address [address] [place] [address] Care Team Providers Care Radiation Oncology Therapist Name Role Phone Ced Victoria MD Unavailable [phone] Virgie Trivedi NP Unavailable [phone] Kirk Randle MD Primary Care Provider [phone] Alana Celaya NP Unavailable [phone] Encounter Details Date Type Department Care Team Description 10/09/2021 Dairy Tester Report Medical Records [address] [place] [id number] [place] [address] Social History Tobacco Use Types Packs/Day Years [...] on filedocumented in this encounter Care Teams Radiation Oncology Therapist Relationship Specialty Start Date End Date Kirk Randle MD [address] [place] [address] [address] [place] [address] PCP - General Internal Medicine 06/05/21 Ced Victoria MD [address] [place] [address] [address] [place] [address] Commercial Pilot Cardiovascular Disease 04/05/21 Virgie Trivedi NP [address] [place] [address] [address] [place] [address] Nurse Practitioner Cardiology 04/05/21 Alana Celaya NP [address] [place] [address] [facility] [place] [address] Nurse Practitioner Cardiology 07/17/23 documented as of this encounter
--- OUTSIDE RECORDS SUMMARY | 2024-12-08 11:26 | XMS_ITS | Encounter Summary ---
Author Organization [facility] Address [address] [place] [address] Care Team Providers Care Tool Coordinator Name Role Phone Ced Victoria MD Unavailable +[phone] Virgie Trivedi NP Unavailable +[phone] Kirk Randle MD Primary Care Provider [phone] Alana Celaya NP Unavailable [phone] Encounter Details Date Type Department Care Team Description 02/01/2023 Endoscope Technician Report Medical Records [address] [place] [address] Social History Tobacco Use Types Packs/Day Years [...] on filedocumented in this encounter Care Teams Tool Coordinator Relationship Specialty Start Date End Date Kirk Randle MD [address] [place] [address] [address] [place] [address] PCP - General Internal Medicine 06/05/21 Ced Victoria MD [address] [place] [address] [address] [place] [address] Loan Officer Assistant Cardiovascular Disease 04/05/21 Virgie Trivedi NP [address] [place] [address] [address] [place] [address] Nurse Practitioner Cardiology 04/05/21 Alana Celaya NP [address] [place] [address] [facility] [place] [address] Nurse Practitioner Cardiology 07/17/23 documented as of this encounter
--- OUTSIDE RECORDS SUMMARY | 2024-12-08 11:26 | XMS_ITS | Encounter Summary ---
Author Organization [facility] Address [address] [place] [address] Care Team Providers Care Automatic Trimming Sewer Name Role Phone Ced Victoria MD Unavailable [phone] Virgie Trivedi NP Unavailable [phone] Kirk Randle MD Primary Care Provider [phone] Alana Celaya NP Unavailable [phone] Reason for Visit * Reason Onset Date Comments Form 10/31/2021 Encounter Details Date Type Department Care Team Description 10/31/2021 Telephone Internal Medicine - [address], [address] [place] [address] Kirk Randle MD [address] [place], [place] [id number] Form Social History Tobacco Use Types Packs/Day [...] filedocumented in this encounter Care Teams Automatic Trimming Sewer Relationship Specialty Start Date End Date Kirk Randle MD [address] [place] [address] [address] [place] [address] PCP - General Internal Medicine 06/05/21 Ced Victoria MD [address] [place] [address] [address] [place] [address] Receptionist/Telephone Operator Cardiovascular Disease 04/05/21 Virgie Trivedi NP [address] [place] [address] [address] [place] [address] Nurse Practitioner Cardiology 04/05/21 Alana Celaya NP [address] [place] [address] [facility] [place] [address] Nurse Practitioner Cardiology 07/17/23 documented as of this encounter
--- OUTSIDE RECORDS SUMMARY | 2024-12-08 11:26 | XMS_ITS | Encounter Summary ---
Author Organization [facility] Address [address] [place] [address] Care Team Providers Care Medical Billing Coder Name Role Phone Ced Victoria MD Unavailable [phone] Virgie Trivedi NP Unavailable [phone] Kirk Randle MD Primary Care Provider [phone] Alana Celaya NP Unavailable [phone] Encounter Details Date Type Department Care Team Description 10/02/2021 Microsystems Engineer Report Medical Records [address] [place] [id number] [place] [address] Social History Tobacco Use Types Packs/Day Years [...] on filedocumented in this encounter Care Teams Medical Billing Coder Relationship Specialty Start Date End Date Kirk Randle MD [address] [place] [address] [address] [place] [address] PCP - General Internal Medicine 06/05/21 Ced Victoria MD [address] [place] [address] [address] [place] [address] Recorder Of Deeds Cardiovascular Disease 04/05/21 Virgie Trivedi NP [address] [place] [address] [address] [place], [place] [address] Nurse Practitioner Cardiology 04/05/21 Alana Celyaa NP [address] [place] [address] [facility] [place] [address] Nurse Practitioner Cardiology 07/17/23 documented as of this encounter
--- OUTSIDE RECORDS SUMMARY | 2024-12-08 11:26 | XMS_ITS | Encounter Summary ---
Author Organization [facility] Address [address] [place] [address] Care Team Providers Care Flight Manager Name Role Phone Ced Victoria MD Unavailable [phone] Virgie Trivedi NP Unavailable [phone] Kirk Randle MD Primary Care Provider [phone] Alana Celaya NP Unavailable [phone] Encounter Details Date Type Department Care Team Description 10/23/2022 Hospital Medical Records [address] [place] [address] Marivel Napoles PA-C Social History Tobacco Use Types Packs/Day [...] on filedocumented in this encounter Care Teams Flight Manager Relationship Specialty Start Date End Date Kirk Randle MD [address] [place] [address] [address] [place] [address] PCP - General Internal Medicine 06/05/21 Ced Victoria MD [address] [place] [address] [address] [place] [address] Wood Club Neck Whipper Cardiovascular Disease 04/05/21 Virgie Trivedi NP [address] [place] [address] [address] [place] [address] Nurse Practitioner Cardiology 04/05/21 Alana Celaya NP [address] [place] [address] [facility] [place] [address] Nurse Practitioner Cardiology 07/17/23 documented as of this encounter
--- OUTSIDE RECORDS SUMMARY | 2024-12-08 11:26 | XMS_ITS | Encounter Summary ---
Author Organization [facility] Address [address] [place] [address] Care Team Providers Care Wheelage Clerk Name Role Phone Ced Victoria MD Unavailable [phone] Virgie Trivedi NP Unavailable [phone] Kirk Randle MD Primary Care Provider [phone] Alana Celaya NP Unavailable [phone] Encounter Details Date Type Department Care Team Description 05/10/2023 Casino Change Attendant Report Medical Records [address] [place] [address] Abstract, Provider Social History Tobacco Use Types [...] on filedocumented in this encounter Care Teams Wheelage Clerk Relationship Specialty Start Date End Date Kirk Randle MD [address] [place] [address] [address] [place] [address] PCP - General Internal Medicine 06/05/21 Ced Victoria MD [address] [place] [address] [address] [place] [address] Cinder Pit Crane Operator Cardiovascular Disease 04/05/21 Virgie Trivedi NP [address] [place] [address] [address] [place] [address] Nurse Practitioner Cardiology 04/05/21 Alana Celaya NP [address] [place] [address] [facility] [place] [address] Nurse Practitioner Cardiology 07/17/23 documented as of this encounter
== END 2024-12-08 10:19 | disposition home or self-care (01) ==
LOC: HO.ACS 09:47
PROVIDERS: PCP Internal Medicine; Visit Provider Internal Medicine Medical Oncology
DX: Z79.01 Long term (current) use of anticoagulants (principal)

== ENCOUNTER → 2024-12-08 09:47 | Outpatient (BNVA) | payer MEDICARE, SELFPAY | PROVIDERS: PCP Internal Medicine; Visit Provider Internal Medicine Medical Oncology | DX: I48.91 Unspecified atrial fibrillation (principal); Z79.01 Long term (current) use of anticoagulants; Z51.81 Encounter for therapeutic drug level monitoring | CPT/HCPCS: 85610; 99211 ==

== ENCOUNTER 2025-01-05 09:49 | Outpatient (AMB) | payer MEDICARE, SELFPAY ==
[2025-01-05 10:04] LABS: Prothrombin Time Whole Bld POC 40.3 sec (11.1-13.5); ~PT, ~INR - Anti Coag Clinic 3.4 (0.9-1.1)
--- NOTE | 2025-01-05 10:12 | MHC.OFFVISCO ---
Intake Intake Visit Reasons: Anticoagulation Allergies clopidogrel [From PLAVIX] Allergy (Unknown, Verified 01/05/25 09:56) RASH Medication List - Last Reconciled 01/05/25 by Rosa Og RN acetaminophen ER 650 mg PO Q12H PRN ascorbic acid (vitamin C) 500 mg PO DAILY atorvastatin 20 mg PO DAILY B-complex with vitamin C 1 tab PO DAILY calcium carb-mag ox-zinc sulf 1 tab PO DAILY coenzyme Q10 10 mg PO TID ferrous sulfate 325 mg PO DAILY furosemide 20 mg PO DAILY metoprolol succinate ER 25 mg PO DAILY omega 0-gwz-jwj-fish oil 1,000 (120-180) mg (Fish Oil) 1 cap PO DAILY saw palmetto 500 mg PO BID vitamin E 400 units PO DAILY warfarin (Jantoven) 2.5 tabs See Protocol PO YELITZA@0900 Nursing Note INR: 3.4 Almost in therapeutic range Medications and supplements reviewed No changes in health, diet, medications, or supplements, Denies any signs and symptoms of bleeding or bruising or clotting. Bleeding, bruising, clotting discussed Nutritional guidance given - greens today- discussed cooked greens vs raw greens Dose: 2.5mg daily F/U INR: 1 month Patient verbalizes understanding of instructions given with read back Anti-Coag Initial Assessment Social Hx Patient Tobacco Use Status: Never used Tobacco alcohol intake: unknown Questionnaires HAS-BLED Does the patient had uncontrolled Hypertension?: No Does the patient have renal disease?: No Does the patient have liver disease?: No Does the patient have a history of stroke?: Yes Has the patient had major bleeding or predisposition to bleeding?: Yes Does the patient have labile INRs?: No Is the patient over 65 years of age?: Yes Is the patient on medications that gives them a predisposition to bleeding?: Yes Does the patient use alcohol?: Yes (MARIJUANA) HAS-BLED Score: 5 CHADSVASC Age: 75 or over Gender: Male Does the patient have a history of CHF?: Yes Does the patient have a history of Hypertension?: Yes Does the patient have a history of Stroke/TIA/Thromboembolism?: Yes Does the patient have a history of Vascular Disease (prior NC, PAD or aortic plaque)?: Yes Does the patient have a history of Diabetes?: No CHADS VACS Score: 7 Ann Marie Prediction Score Rsk VTE Active Cancer: No Previous VTE, excluding superficial vein thrombosis: Yes Reduced mobility: No Already known Thrombophilic Condition: No With-in last month Trauma and/or Surgery: No Elderly 70 year or older: Yes Heart and/or Respiratory Failure: No Acute Myocardial infarction and/or Ischemic Stroke: Yes Acute Infection and/or Rheumatologic Disorder: No Obesity (BMI 30 or greater): No Ongoing Hormonal Treatment: No Score: 5 Ann Marie Score less than 4; Low Risk of VTE Ann Marie Score 4 or greater; High Risk of VTE Coding Level of Care Code Est Patient Level 1 Diagnoses Current use of anticoagulant therapy Z79.01 Assessment & Plan Assessment & Plan (1) Current use of anticoagulant therapy: Code(s): Z79.01 - halfway (current) use of anticoagulants Category: Medical
--- OUTSIDE RECORDS SUMMARY | 2025-01-05 10:58 | XMS_ITS | Encounter Summary ---
Author Organization [facility] Address [address] [place] [address] Care Team Providers Care Commodity Manager Name Role Phone Kirk Randle MD Primary Care Provider [phone] Ced Victoria MD Unavailable [phone] Virgie Trivedi FIELD ARTILLERY SENIOR SERGEANT Unavailable [phone] Kirk Randle MD Primary Care Provider [phone] Alana Celaya FIELD ARTILLERY SENIOR SERGEANT Unavailable [phone] Reason for Visit * Reason Onset Date Comments VNA Call 03/23/2021 Encounter Details Date Type Department Care Team Description 03/23/2021 Telephone Pulmonology - [address] [place] [address] Kirk Randle MD [address] [place] [address] VNA Call Social History Tobacco [...] of caller: [employer] 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 publication specialist Is the caller at the patients [...] on filedocumented in this encounter Care Teams Commodity Manager Relationship Specialty Start Date End Date Kirk Randle MD PCP - General Internal Medicine 07/12/20 06/04/21 Kirk Randle MD PCP - General Internal Medicine 06/05/21 Ced Victoria MD [address] [place] [address] [address] [place] [address] Community Leader Cardiovascular Disease 04/05/21 Virgie Trivedi NP [address] [place] [address] [address] [place] [address] Nurse Practitioner Cardiology 04/05/21 Alana Celaya NP [address] [place] [address] [facility] [place], [place] [id number] Nurse Practitioner Cardiology 07/17/23 documented as of this encounter
--- OUTSIDE RECORDS SUMMARY | 2025-01-05 10:58 | XMS_ITS | Encounter Summary ---
Author Organization [facility] Address [address] [place] [address] Care Team Providers Care Warp Preparer Name Role Phone Ced Victoria MD Unavailable [phone] Virgie Trivedi NP Unavailable [phone] Kirk Randle MD Primary Care Provider [phone] Alana Celaya NP Unavailable [phone] Encounter Details Date Type Department Care Team Description 10/04/2023 SCAN Medical Records [address] [place] [address] Abstract, Provider Social History Tobacco Use Types [...] Date/Time Associated Diagnosis Comments OUTSIDE LAB Routine 10/04/2023 documented in this encounter Results * OUTSIDE LAB (10/04/2023) Provider Default LAB documented in this encounter Visit Diagnoses Not on filedocumented in this encounter Care Teams Warp Preparer Relationship Specialty Start Date End Date Kirk Randle MD [address] [place] [address] [address] [place] [address] PCP - General Internal Medicine 06/05/21 Ced Victoria MD [address] [place] [address] [address] [place] [address] Nuclear Fuel Enrichment Technician Cardiovascular Disease 04/05/21 Virgie Trivedi NP [address] [place] [address] [address] [place] [address] Nurse Practitioner Cardiology 04/05/21 Alana Celaya NP [address] [place] [address] [facility] [place] [address] Nurse Practitioner Cardiology 07/17/23 documented as of this encounter
--- OUTSIDE RECORDS SUMMARY | 2025-01-05 10:58 | XMS_ITS | Encounter Summary ---
Author Organization [facility] Address [address] [place] [address] Care Team Providers Care Condenser Operator Name Role Phone Ced Victoria MD Unavailable [phone] Virgie Trivedi NP Unavailable [phone] Kirk Randle MD Primary Care Provider [phone] Alana Celaya NP Unavailable [phone] Encounter Details Date Type Department Care Team Description 09/17/2023 Orders Only Medical Records [address] [place] [address] [place] Social History Tobacco Use Types [...] on filedocumented in this encounter Care Teams Condenser Operator Relationship Specialty Start Date End Date Kirk Randle MD [address] [place] [address] [address] [place] [address] PCP - General Internal Medicine 06/05/21 Ced Victoria MD [address] [place] [address] [address] [place] [address] Paper Tube Machine Operator Cardiovascular Disease 04/05/21 Virgie Trivedi NP [address] [place] [address] [address] [place] [address] Nurse Practitioner Cardiology 04/05/21 Alana Celaya NP [address] [place] [address] [facility] [place] [address] Nurse Practitioner Cardiology 07/17/23 documented as of this encounter
--- OUTSIDE RECORDS SUMMARY | 2025-01-05 10:58 | XMS_ITS | Encounter Summary ---
Author Organization [facility] Address [address] [place] [address] Care Team Providers Care Health Safety Coordinator Name Role Phone Ced Victoria MD Unavailable [phone] Virgie Trivedi NP Unavailable [phone] Kirk Randle MD Primary Care Provider [phone] Alana Celaya NP Unavailable [phone] Encounter Details Date Type Department Care Team Description 10/18/2023 Telephone Internal Medicine - [address], [address] [place], [place] [phone] Kirk Randle MD [address] [place], [place] [id number] Social History Tobacco Use Types Packs/Day Years [...] filedocumented in this encounter Care Teams Health Safety Coordinator Relationship Specialty Start Date End Date Kirk Randle MD [address] [place] [address] [address] [place] [address] PCP - General Internal Medicine 06/05/21 Ced Victoria MD [address] [place] [address] [address] [place] [address] Pneudraulic Systems Mechanic Cardiovascular Disease 04/05/21 Virgie Trivedi NP [address] [place] [address] [address] [place] [address] Nurse Practitioner Cardiology 04/05/21 Alana Celaya NP [address] [place] [address] [facility] [place] [address] Nurse Practitioner Cardiology 07/17/23 documented as of this encounter
--- OUTSIDE RECORDS SUMMARY | 2025-01-05 10:58 | XMS_ITS | Encounter Summary ---
Author Organization [facility] Address [address] [place] [address] Care Team Providers Care Engine Tester Name Role Phone Kirk Randle MD Primary Care Provider [phone] Ced Victoria MD Unavailable [phone] Virgie Trivedi NP Unavailable [phone] Kirk Randle MD Primary Care Provider + [phone] Alana Celaya NP Unavailable [phone] Encounter Details Date Type Department Care Team Description 04/15/2021 Hospital Medical Records [address] [place] [address] Debora Gutierrez NP [address] [place] [address] Social History Tobacco Use Types Packs/Day Years [...] on filedocumented in this encounter Care Teams Engine Tester Relationship Specialty Start Date End Date Kirk Randle MD PCP - General Internal Medicine 07/12/20 06/04/21 Kirk Randle MD PCP - General Internal Medicine 06/05/21 Ced Victoria MD [address] [place] [address] [address] [place], [place] [phone] Air Pumper Cardiovascular Disease 04/05/21 Virgie Trivedi NP [address] [place] [address] [address] [place], [place] [address] Nurse Practitioner Cardiology 04/05/21 Alana Celaya NP [address] [place] [address] [facility] [place], [place] [address] Nurse Practitioner Cardiology 07/17/23 documented as of this encounter
--- OUTSIDE RECORDS SUMMARY | 2025-01-05 10:58 | XMS_ITS | Encounter Summary ---
Author Organization [facility] Address [address] [place] [address] Care Team Providers Care Hand Hose Cutter Name Role Phone Kirk Randle MD Primary Care Provider [phone] Ced Victoria MD Unavailable [phone] Virgie Trivedi POWER PRESS SUPERVISOR Unavailable [phone] Kirk Randle MD Primary Care Provider + [phone] Alana Celaya POWER PRESS SUPERVISOR Unavailable [phone] Reason for Visit * Reason Comments E-prescribe Rx Request Encounter Details Date Type Department Care Team Description 12/05/2020 [facility] Internal Medicine - [address], [address] [place] [address] Octavio Gross MD E-prescribe Rx Request Social [...] 12/05/2020 11:04 AM EDT Pt goes to [facility] Jaquelin Gaytan L.P.N. CLIFF 09/19/2020 NEXT 01/19/2021 documented in this encounter Plan of Treatment Not on file documented as of this encounter Visit Diagnoses Not on filedocumented in this encounter Care Teams Hand Hose Cutter Relationship Specialty Start Date End Date Kirk Randle MD PCP - General Internal Medicine 07/12/20 06/04/21 Kirk Randle MD PCP - General Internal Medicine 06/05/21 Ced Victoria MD [address] [place] [address] [address] [place] [address] Business Analyst Cardiovascular Disease 04/05/21 Virgie Trivedi NP [address] [place] [address] [address] [place] [address] Nurse Practitioner Cardiology 04/05/21 Alana Celaya NP [address] [place] [address] [facility] [address] Nurse Practitioner Cardiology 07/17/23 documented as of this encounter
--- OUTSIDE RECORDS SUMMARY | 2025-01-05 10:58 | XMS_ITS | Encounter Summary ---
Author Organization [facility] Address [address] [place] [address] Care Team Providers Care Freight Conductor Name Role Phone Kirk Randle MD Primary Care Provider [phone] Ced Victoria MD Unavailable [phone] Virgie Trivedi NP Unavailable [phone] Kirk Randle MD Primary Care Provider + [phone] Alana Celaya SPINNING FRAME FIXER Unavailable [phone] Encounter Details Date Type Department Care Team Description 04/10/2021 Hospital Medical Records [address] [place] [address] Roldan Ni, [place] [address] [address] Social History Tobacco Use Types Packs/Day Years [...] on filedocumented in this encounter Care Teams Freight Conductor Relationship Specialty Start Date End Date Kirk Randle MD PCP - General Internal Medicine 07/12/20 06/04/21 Kirk Randle MD PCP - General Internal Medicine 06/05/21 Ced Victoria MD [address] [place] [address] [address] [place], [place] [phone] Supervisor Acoustical Tile Carpenters Cardiovascular Disease 04/05/21 Virgie Trivedi NP [address] [place] [address] [address] [place], [place] [address] Nurse Practitioner Cardiology 04/05/21 Alana Celaya NP [address] [place] [address] [facility] [place], [place] [address] Nurse Practitioner Cardiology 07/17/23 documented as of this encounter
--- OUTSIDE RECORDS SUMMARY | 2025-01-05 10:58 | XMS_ITS | Encounter Summary ---
Author Organization [facility] Address [address] [place] [address] Care Team Providers Care Senior Business Consultant Name Role Phone Kirk Randle MD Primary Care Provider [phone] Ced Victoria MD Unavailable [phone] Virgie Trivedi PAINT ROLLER COVERMAKER Unavailable [phone] Kirk Randle MD Primary Care Provider + [phone] Alana Celaya PAINT ROLLER COVERMAKER Unavailable [phone] Encounter Details Date Type Department Care Team Description 03/22/2021 Hospital Medical Records [address] [place] [address] Niesha Diallo PA Social History Tobacco Use [...] filedocumented in this encounter Care Teams Senior Business Consultant Relationship Specialty Start Date End Date Kirk Randle MD PCP - General Internal Medicine 07/12/20 06/04/21 Kirk Randle MD PCP - General Internal Medicine 06/05/21 Ced Victoria MD [address] [place] [address] [address] [place] [address] Auditor/Quality Cardiovascular Disease 04/05/21 Virgie Trivedi NP [address] [place] [address] [address] [place] [address] Nurse Practitioner Cardiology 04/05/21 Alana Celaya NP [address] [place] [address] [facility] [place] [address] Nurse Practitioner Cardiology 07/17/23 documented as of this encounter
--- OUTSIDE RECORDS SUMMARY | 2025-01-05 10:58 | XMS_ITS | Encounter Summary ---
Author Organization [facility] Address [address] [place] [address] Care Team Providers Care Geodetic Surveyor Name Role Phone Ced Victoria MD Unavailable [phone] Virgie Trivedi NP Unavailable [phone] Kirk Randle MD Primary Care Provider [phone] Alana Celaya NP Unavailable [phone] Encounter Details Date Type Department Care Team Description 07/09/2023 Hospital Medical Records [address] [place] [address] Raffy Gardner MD [address] [address] Social History Tobacco Use Types [...] on filedocumented in this encounter Care Teams Geodetic Surveyor Relationship Specialty Start Date End Date Kirk Randle MD [address] [place] [address] [address] [place] [address] PCP - General Internal Medicine 06/05/21 Ced Victoria MD [address] [place] [address] [address] [place] [address] Professor Of Fine Art Cardiovascular Disease 04/05/21 Virgie Trivedi NP [address] [place] [address] [address] [place] [address] Nurse Practitioner Cardiology 04/05/21 Alana Celaya NP [address] [place] [address] [facility] [place] [address] Nurse Practitioner Cardiology 07/17/23 documented as of this encounter
--- OUTSIDE RECORDS SUMMARY | 2025-01-05 10:58 | XMS_ITS | Encounter Summary ---
Author Organization [facility] Address [address] [place] [address] Care Team Providers Care Dental Equipment Installer And Servicer Name Role Phone Ced Victoria MD Unavailable [phone] Virgie Trivedi NP Unavailable [phone] Kirk Randle MD Primary Care Provider [phone] Alana Celaya NP Unavailable [phone] Reason for Visit * Reason Onset Date Comments Faxed Refill 10/08/2023 Encounter Details Date Type Department Care Team Description 10/08/2023 Refill Internal Medicine - [address], [address] [place] [address] Kirk Randle MD [address] [place] [address] Faxed Refill Social History Tobacco Use Types [...] MED LIST AND IS IDENTIFIED BELOW): {MED LIST:12219) Med name: JANTOVEN 5 MG tablet (Discontinued) Dosage: 5 MG # of tablets: 90 Local pharmacy with request for 90 -day supply Instructions: Take 1 tablet by mouth daily or as instructed Did you check the pharmacy information above?: YES Patients current insurance carrier: Payor: [facility] / Plan: [place] [employer] PREF HMO $10 [place] / Product Type: MEDICARE RISK Insurance ID #: No Subscriber Number on File documented in this encounter Plan of Treatment Not on file documented as of this encounter Visit Diagnoses Not on filedocumented in this encounter Care Teams Dental Equipment Installer And Servicer Relationship Specialty Start Date End Date Kirk Randle MD [address] [place] [address] [address] [place] [address] PCP - General Internal Medicine 06/05/21 Ced Victoria MD [address] [place] [address] [address] [place] [address] Diesel Retrofit Installer Cardiovascular Disease 04/05/21 Virgie Trivedi NP [address] [place] [address] [address] [place] [address] Nurse Practitioner Cardiology 04/05/21 Alana Celaya, GILBERTO [address] [place] [address] [facility] [place] [address] Nurse Practitioner Cardiology 07/17/23 documented as of this encounter
--- OUTSIDE RECORDS SUMMARY | 2025-01-05 10:58 | XMS_ITS | Encounter Summary ---
Author Organization [facility] Address [address] [place] [address] Care Team Providers Care Rasper Machine Operator Name Role Phone Kirk Randle MD Primary Care Provider [phone] Ced Victoria MD Unavailable [phone] Virgie Trivedi CORPORATE LICENSED BROKER Unavailable [phone] Kirk Randle MD Primary Care Provider + [phone] Alana Celaya NP Unavailable [phone] Encounter Details Date Type Department Care Team Description 04/12/2021 Orders Only Cardio PVC POC [address] [facility] [address] [place], [place] [phone] Parris Dyer NP [address] [place] [address] Subacute bacterial endocarditis (Primary Dx) [...] endocarditis documented in this encounter Care Teams Rasper Machine Operator Relationship Specialty Start Date End Date Kirk Randle MD PCP - General Internal Medicine 07/12/20 06/04/21 Kirk Randle MD PCP - General Internal Medicine 06/05/21 Ced Victoria MD [address] [place] [address] [address] [place], [place] [phone] Fisher Lampara Net Cardiovascular Disease 04/05/21 Virgie Trivedi NP [address] [place] [address] [address] [place] [address] Nurse Practitioner Cardiology 04/05/21 Alana Celaya NP [address] [place] [address] [facility] [place], [place] [address] Nurse Practitioner Cardiology 07/17/23 documented as of this encounter
--- OUTSIDE RECORDS SUMMARY | 2025-01-05 10:58 | XMS_ITS | Encounter Summary ---
Author Organization [facility] Address [address] [place] [address] Care Team Providers Care Pre Billing Specialist Name Role Phone Kirk Randle MD Primary Care Provider [phone] Ced Victoria MD Unavailable [phone] Virgie Trivedi NP Unavailable [phone] Kirk Randle MD Primary Care Provider + [phone] Alana Celaya NP Unavailable [phone] Reason for Visit * Reason Onset Date Comments Hospital Procedure 04/13/2021 LEANNA 9.24.21 Encounter Details Date Type Department Care Team Description 04/13/2021 Telephone Cardio PVC POC 154 300 [facility] [address] [place], [place] [phone] Parris Dyer, GILBERTO [address] [facility] [address] [place] [address] Hospital Procedure (LEANNA 9.24.21) Social [...] Scheduled on 06.02.21 per patients request at [facility] w/ YZ at 130pm. Mailing [...] endocarditis documented in this encounter Care Teams Pre Billing Specialist Relationship Specialty Start Date End Date Kirk Randle MD PCP - General Internal Medicine 07/12/20 06/04/21 Kirk Randle MD PCP - General Internal Medicine 06/05/21 Ced Victoria MD [address] [place] [address] [address] [place] [address] Fashion Artist Cardiovascular Disease 04/05/21 Virgie Trivedi NP [address] [place] [address] [address] [place] [address] Nurse Practitioner Cardiology 04/05/21 Alana Celaya NP [address] [place] [address] [facility] [place] [address] Nurse Practitioner Cardiology 07/17/23 documented as of this encounter
--- OUTSIDE RECORDS SUMMARY | 2025-01-05 10:58 | XMS_ITS | Encounter Summary ---
Author Organization [facility] Address [address] [place] [address] Care Team Providers Care Surgical Instrument Mechanic Name Role Phone Kirk Randle MD Primary Care Provider [phone] Ced Victoria MD Unavailable [phone] Virgie Trivedi RETURNS PROCESSOR Unavailable [phone] Kirk Randle MD Primary Care Provider + [phone] Alana Celaya RETURNS PROCESSOR Unavailable [phone] Encounter Details Date Type Department Care Team Description 04/13/2021 SCAN Medical Records [address] [place] [address] Abstract, Provider Social History Tobacco Use Types [...] filedocumented in this encounter Care Teams Surgical Instrument Mechanic Relationship Specialty Start Date End Date Kirk Randle MD PCP - General Internal Medicine 07/12/20 06/04/21 Kirk Randle MD PCP - General Internal Medicine 06/05/21 Ced Victoria MD [address] [place] [address] [address] [place] [address] Putty Maker Cardiovascular Disease 04/05/21 Virgie Trivedi NP [address] [place] [address] [address] [place], [place] [address] Nurse Practitioner Cardiology 04/05/21 Alana Celaya NP [address] [place] [address] [facility] [place], [place] [address] Nurse Practitioner Cardiology 07/17/23 documented as of this encounter
--- OUTSIDE RECORDS SUMMARY | 2025-01-05 10:58 | XMS_ITS | Encounter Summary ---
Author Organization [facility] Address [address] [place] [address] Care Team Providers Care Information Officer Name Role Phone Ced Victoria MD Unavailable [phone] Virgie Trivedi NP Unavailable [phone] Kirk Randle MD Primary Care Provider [phone] Alana Celaya NP Unavailable [phone] Encounter Details Date Type Department Care Team Description 04/02/2022 Cuff Setter Overlock Report Medical Records [address] [place] [address] Feliz Gonzalez Social History Tobacco Use Types [...] on filedocumented in this encounter Care Teams Information Officer Relationship Specialty Start Date End Date Kirk Randle MD [address] [place] [address] [address] [place] [address] PCP - General Internal Medicine 06/05/21 Ced Victoria MD [address] [place] [address] [address] [place] [address] Intervention Nurse Cardiovascular Disease 04/05/21 Virgie Trivedi NP [address] [place] [address] [address] [place] [address] Nurse Practitioner Cardiology 04/05/21 Alana Celaya NP [address] [place] [address] [facility] [place] [address] Nurse Practitioner Cardiology 07/17/23 documented as of this encounter
--- OUTSIDE RECORDS SUMMARY | 2025-01-05 10:58 | XMS_ITS | Encounter Summary ---
Author Organization [facility] Address [address] [place] [address] Care Team Providers Care Hvac Operations Technician Name Role Phone Ced Victoria MD Unavailable [phone] Virgie Trivedi NP Unavailable [phone] Kirk Randle MD Primary Care Provider [phone] Alana Celaya NP Unavailable [phone] Encounter Details Date Type Department Care Team Description 07/28/2023 Home Health Certification Medical Records [address] [place] [address] Social History Tobacco Use Types Packs/Day Years [...] on filedocumented in this encounter Care Teams Hvac Operations Technician Relationship Specialty Start Date End Date Kirk Randle MD [address] [place] [address] [address] [place] [address] PCP - General Internal Medicine 06/05/21 Ced Victoria MD [address] [place] [address] [address] [place] [address] Telesales Consultant Cardiovascular Disease 04/05/21 Virgie rTivedi NP [address] [place] [address] [address] [place] [address] Nurse Practitioner Cardiology 04/05/21 Alana Celaya NP [address] [place] [address] Dr [facility] [place] [address] Nurse Practitioner Cardiology 07/17/23 documented as of this encounter
--- OUTSIDE RECORDS SUMMARY | 2025-01-05 10:58 | XMS_ITS | Encounter Summary ---
Author Organization [facility] Address [address] [place] [address] Care Team Providers Care Auger Supervisor Name Role Phone Ced Victoria MD Unavailable [phone] Virgie Trivedi NP Unavailable [phone] Kirk Randle MD Primary Care Provider [phone] Alana Celaya NP Unavailable [phone] Encounter Details Date Type Department Care Team Description 03/19/2022 Termination Clerk Report Medical Records [address] [place] [id number] [place] [address] Social History Tobacco Use Types Packs/Day Years [...] on filedocumented in this encounter Care Teams Auger Supervisor Relationship Specialty Start Date End Date Kirk Randle MD [address] [place] [address] [address] [place] [address] PCP - General Internal Medicine 06/05/21 Ced Victoria MD [address] [place] [address] [address] [place] [address] Cigar Bander Hand Cardiovascular Disease 04/05/21 Virgie Trivedi NP [address] [place] [address] [address] [place] [address] Nurse Practitioner Cardiology 04/05/21 Alana Celaya NP [address] [place] [address] Dr [facility] [place] [address] Nurse Practitioner Cardiology 07/17/23 documented as of this encounter
--- OUTSIDE RECORDS SUMMARY | 2025-01-05 10:58 | XMS_ITS | Encounter Summary ---
Author Organization [facility] Address [address] [place] [address] Care Team Providers Care Egg Buyer Name Role Phone Ced Victoria MD Unavailable [phone] Virgie Trivedi NP Unavailable [phone] Kirk Randle MD Primary Care Provider [phone] Alana Celaya NP Unavailable [phone] Encounter Details Date Type Department Care Team Description 06/17/2023 Orders Only Medical Records [address] [place] [address] Abstract, Provider Social History Tobacco Use Types [...] Date/Time Associated Diagnosis Comments OUTSIDE LAB Routine 05/23/2023 OUTSIDE LAB Routine 05/07/2023 documented in this encounter Results * OUTSIDE LAB (05/23/2023) Provider Abstract LAB * OUTSIDE LAB (05/07/2023) Provider Abstract LAB documented in this encounter Visit Diagnoses Not on filedocumented in this encounter Care Teams Egg Buyer Relationship Specialty Start Date End Date Kirk Randle MD [address] [place] [address] DR[address] [place] [address] PCP - General Internal Medicine 06/05/21 Ced Victoria MD [address] [place] [address] [address] [place] [address] Hat Liner Cardiovascular Disease 04/05/21 Virgie Trivedi NP [address] [place] [address] [address] [place] [address] Nurse Practitioner Cardiology 04/05/21 Alana Celaya NP [address] [place] [address] Dr [facility] [place] [address] Nurse Practitioner Cardiology 07/17/23 documented as of this encounter
--- OUTSIDE RECORDS SUMMARY | 2025-01-05 10:58 | XMS_ITS | Encounter Summary ---
Author Organization [facility] Address [address] [place] [address] Care Team Providers Care Employee Relations Consultant Name Role Phone Ced Victoria MD Unavailable [phone] Virgie Trivedi NP Unavailable [phone] Kirk Randle MD Primary Care Provider [phone] Alana Celaya NP Unavailable [phone] Encounter Details Date Type Department Care Team Description 08/27/2023 Telephone Internal Medicine - [address], [address] [place], [place] [id number] Kirk Randle MD [address] [place], [place] [address] Social History Tobacco Use Types Packs/Day Years [...] on filedocumented in this encounter Care Teams Employee Relations Consultant Relationship Specialty Start Date End Date Kirk Randle MD [address] [place] [address] [address] [place] [address] PCP - General Internal Medicine 06/05/21 Ced Victoria MD [address] [place] [address] [address] [place] [address] Water Filterer Cardiovascular Disease 04/05/21 Virgie Trivedi NP [address] [place] [address] [address] [place] [address] Nurse Practitioner Cardiology 04/05/21 Alana Celaya NP [address] [place] [address] [facility] [place] [address] Nurse Practitioner Cardiology 07/17/23 documented as of this encounter
--- OUTSIDE RECORDS SUMMARY | 2025-01-05 10:58 | XMS_ITS | Encounter Summary ---
Author Organization [facility] Address [address] [place] [address] Care Team Providers Care Machine Maintenance Supervisor Name Role Phone Ced Victoria MD Unavailable [phone] Virgie Trivedi NP Unavailable [phone] Kirk Randle MD Primary Care Provider [phone] Alana Celaya NP Unavailable [phone] Encounter Details Date Type Department Care Team Description 07/02/2023 Orders Only Medical Records [address] [place] [address] [place] Social History Tobacco Use Types [...] filedocumented in this encounter Care Teams Machine Maintenance Supervisor Relationship Specialty Start Date End Date Kirk Randle MD [address] [place] [address] [address] [place] [address] PCP - General Internal Medicine 06/05/21 Ced Victoria MD [address] [place] [address] [address] [place] [address] Client Development Manager Cardiovascular Disease 04/05/21 Virgie Trivedi NP [address] [place] [address] [address] [place] [address] Nurse Practitioner Cardiology 04/05/21 Alana Celaya NP [address] [place] [address] Dr [facility] [place] [address] Nurse Practitioner Cardiology 07/17/23 documented as of this encounter
--- OUTSIDE RECORDS SUMMARY | 2025-01-05 10:58 | XMS_ITS | Encounter Summary ---
Author Organization [facility] Address [address] [place] [address] Care Team Providers Care Lokie Driver Name Role Phone Ced Victoria MD Unavailable [phone] Virgie Trivedi NP Unavailable [phone] Kirk Randle MD Primary Care Provider [phone] Alana Celaya NP Unavailable [phone] Encounter Details Date Type Department Care Team Description 09/26/2023 Home Health Certification Medical Records [address] [place] [address] Social History Tobacco Use Types Packs/Day Years [...] on filedocumented in this encounter Care Teams Lokie Driver Relationship Specialty Start Date End Date Kirk Randle MD [address] [place] [address] [address] [place] [address] PCP - General Internal Medicine 06/05/21 Ced Victoria MD [address] [place] [address] [address] [place] [address] Innersole Fitter Cardiovascular Disease 04/05/21 Virgie Trivedi NP [address] [place] [address] [address] [place], [place] [address] Nurse Practitioner Cardiology 04/05/21 Alana Celaya NP [address] [place] [address] Dr [facility] [place] [address] Nurse Practitioner Cardiology 07/17/23 documented as of this encounter
--- OUTSIDE RECORDS SUMMARY | 2025-01-05 10:58 | XMS_ITS | Encounter Summary ---
Author Organization [facility] Address [address] [place] [address] Care Team Providers Care Cork Compounder Name Role Phone Kirk Randle MD Primary Care Provider [phone] Ced Victoria MD Unavailable [phone] Virgie Trivedi PROJECT MANAGEMENT PROFESSIONAL Unavailable [phone] Kirk Randle MD Primary Care Provider [phone] Alana Celaya PROJECT MANAGEMENT PROFESSIONAL Unavailable [phone] Encounter Details Date Type Department Care Team Description 04/13/2021 SCAN Medical Records [address] [place] [address] Abstract, Provider Social History Tobacco Use Types [...] on filedocumented in this encounter Care Teams Cork Compounder Relationship Specialty Start Date End Date Kirk Ranlde MD PCP - General Internal Medicine 07/12/20 06/04/21 Kirk Randle MD PCP - General Internal Medicine 06/05/21 Ced Victoria MD [address] [place] [address] [address] [place] [address] Life Enrichment Director Cardiovascular Disease 04/05/21 Virgie Trivedi NP [address] [place] [address] [address] [place], [place] [address] Nurse Practitioner Cardiology 04/05/21 Alana Celaya NP [address] [place] [address] [facility] [place], [place] [address] Nurse Practitioner Cardiology 07/17/23 documented as of this encounter
--- OUTSIDE RECORDS SUMMARY | 2025-01-05 10:58 | XMS_ITS | Encounter Summary ---
Author Organization [facility] Address [address] [place] [address] Care Team Providers Care Model Maker Fiberglass Name Role Phone Ced Victoria MD Unavailable [phone] Virgie Trivedi NP Unavailable [phone] Kirk Randle MD Primary Care Provider [phone] Alana Celaya NP Unavailable [phone] Encounter Details Date Type Department Care Team Description 07/12/2023 SCAN Medical Records [address] [place] [address] [facility] Social History Tobacco Use Types Packs/Day Years [...] on filedocumented in this encounter Care Teams Model Maker Fiberglass Relationship Specialty Start Date End Date Kirk Randle MD [address] [place] [address] [address] [place] [address] PCP - General Internal Medicine 06/05/21 Ced Victoria MD [address] [place] [address] [address] [place] [address] Interior Surface Insulation Worker Cardiovascular Disease 04/05/21 Virgie Trivedi NP [address] [place] [address] [address] [place] [address] Nurse Practitioner Cardiology 04/05/21 Alana Celaya NP [address] [place] [address] [facility] [place] [address] Nurse Practitioner Cardiology 07/17/23 documented as of this encounter
--- OUTSIDE RECORDS SUMMARY | 2025-01-05 10:59 | XMS_ITS | Encounter Summary ---
Author Organization [facility] Address [address] [place] [address] Care Team Providers Care Copywriting Intern Name Role Phone Kirk Randle MD Primary Care Provider [phone] Ced Victoria MD Unavailable [phone] Virgie Trivedi HALFWAY HOUSE COUNSELOR Unavailable [phone] Kirk Randle MD Primary Care Provider [phone] Alana Celaya HALFWAY HOUSE COUNSELOR Unavailable [phone] Encounter Details Date Type Department Care Team Description 06/01/2021 Refill Internal Medicine - [address], [address] [place], [place] [address] Kirk Randle MD [address] [place], [place] [id number] Social History Tobacco Use Types Packs/Day Years [...] on filedocumented in this encounter Care Teams Copywriting Intern Relationship Specialty Start Date End Date Kirk Randle MD PCP - General Internal Medicine 07/12/20 06/04/21 Kirk Randle MD PCP - General Internal Medicine 06/05/21 Ced Victoria MD [address] [place] [address] [address] [place] [address] Baggage Inspector Cardiovascular Disease 04/05/21 Virgie Trivedi NP [address] [place] [address] [address] [place] [address] Nurse Practitioner Cardiology 04/05/21 Alana Celaya NP [address] [place] [address] [facility] [place] [address] Nurse Practitioner Cardiology 07/17/23 documented as of this encounter
--- OUTSIDE RECORDS SUMMARY | 2025-01-05 10:59 | XMS_ITS | Encounter Summary ---
Author Organization [facility] Address [address] [place] [address] Care Team Providers Care Information Developer Name Role Phone Ced Victoria MD Unavailable [phone] Virgie Trivedi NP Unavailable [phone] Kirk Randle MD Primary Care Provider [phone] Alana Celaya NP Unavailable [phone] Encounter Details Date Type Department Care Team Description 06/05/2021 Telephone Cardio PVCA Diag Testing [address] [place] [address] Lakisha Garrett PA Social History Tobacco Use [...] from [facility] [place]. She is seeing Mr. Flynn for his wound care appointment. 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 Advised that I see that he has vascular surgery appt 06/16/2021 with PULMONARY DISEASE SPECIALIST through [facility]. I also advised his LEANNA report is not in our system yet (had it done 06/02). She will f/u with us after his vascular surgery appt. documented in this encounter Plan of Treatment Not on file documented as of this encounter Visit Diagnoses Not on filedocumented in this encounter Care Teams Information Developer Relationship Specialty Start Date End Date Kirk Randle MD [address] [place] [address] [place] [address] PCP - General Internal Medicine 06/05/21 Ced Victoria MD [address] [place] [address] [address] [place] [address] Neon Light Installer Cardiovascular Disease 04/05/21 Virgie Trivedi NP [address] [place] [address] [place] [address] Nurse Practitioner Cardiology 04/05/21 Alana Celaya NP [address] [place] [address] Dr [facility] [place] [address] Nurse Practitioner Cardiology 07/17/23 documented as of this encounter
--- OUTSIDE RECORDS SUMMARY | 2025-01-05 10:59 | XMS_ITS | Encounter Summary ---
Author Organization [facility] Address [address] [place] [address] Care Team Providers Care Staff Assistant Name Role Phone Ced Victoria MD Unavailable [phone] Virgie Trivedi NP Unavailable [phone] Kirk Randle MD Primary Care Provider [phone] Alana Celaya NP Unavailable [phone] Encounter Details Date Type Department Care Team Description 08/16/2022 Hospital Medical Records [address] [place] [address] Raffy Gardner MD [address] [address] Social History Tobacco Use Types [...] on filedocumented in this encounter Care Teams Staff Assistant Relationship Specialty Start Date End Date Kirk Randle MD [address] [place] [address] [address] [place] [address] PCP - General Internal Medicine 06/05/21 Ced Victoria MD [address] [place] [address] [address] [place] [address] Assembly Line Brazer Cardiovascular Disease 04/05/21 Virgie Trivedi NP [address] [place] [address] [address] [place] [address] Nurse Practitioner Cardiology 04/05/21 Alana Celaya NP [address] [place] [address] [facility] [place] [address] Nurse Practitioner Cardiology 07/17/23 documented as of this encounter
--- OUTSIDE RECORDS SUMMARY | 2025-01-05 10:59 | XMS_ITS | Encounter Summary ---
Author Organization [facility] Address [address] [place] [address] Care Team Providers Care Nickel Plant Operator Name Role Phone Ced Victoria MD Unavailable [phone] Virgie Trivedi NP Unavailable [phone] Kirk Randle MD Primary Care Provider [phone] Alana Celaya NP Unavailable [phone] Encounter Details Date Type Department Care Team Description 06/07/2021 Home Health Certification Medical Records [address] [place] [address] Social History Tobacco Use Types Packs/Day Years [...] on filedocumented in this encounter Care Teams Nickel Plant Operator Relationship Specialty Start Date End Date Kirk Randle MD [address] [place] [address] [address] [place] [address] PCP - General Internal Medicine 06/05/21 Ced Victoria MD [address] [place] [address] [address] [place] [address] Military Technician Cardiovascular Disease 04/05/21 Virgie Trivedi NP [address] [place] [address] [address] [place] [address] Nurse Practitioner Cardiology 04/05/21 Alana Celaya NP [address] [place] [address] [facility] [place] [address] Nurse Practitioner Cardiology 07/17/23 documented as of this encounter
--- OUTSIDE RECORDS SUMMARY | 2025-01-05 10:59 | XMS_ITS | Encounter Summary ---
Author Organization [facility] Address [address] [place] [address] Care Team Providers Care Mig Tig Welder Name Role Phone Ced Victoria MD Unavailable [phone] Virgie Trivedi NP Unavailable [phone] Kirk Randle MD Primary Care Provider [phone] Alana Celaya NP Unavailable [phone] Reason for Visit * Reason Onset Date Comments Faxed Refill 08/28/2022 Encounter Details Date Type Department Care Team Description 08/28/2022 Refill Internal Medicine - [address], [address] [place] [address] Kirk Randle MD [address] [place] [address] Faxed Refill Social History Tobacco Use Types [...] like script to be: E-PRESCRIBED/FAXED TO PHARMACY ([facility] [address] [place] [address]) When was the patients last office visit in Adult Medicine?: 08/01/22 When was the last time the patient saw their PCP? Same as above Does patient have an upcoming appointment? No (THE MEDICATION IS NOT ON THE MED LIST AND IS IDENTIFIED BELOW): {MED LIST:17778) Med name: KELLEYTOVEN tablet Dosage: 5 MG # of tablets: N/a Local pharmacy with request for 90 -day supply Instructions: Take one tablet by mouth per administration instructions. Did you check the pharmacy information above?: YES Patients current insurance carrier: Payor: [facility] / Plan: [employer] PREF HMO [facility] / Product Type: MEDICARE RISK Insurance ID #: No Subscriber Number on File documented in this encounter Plan of Treatment Not on file documented as of this encounter Visit Diagnoses Not on filedocumented in this encounter Care Teams Mig Tig Welder Relationship Specialty Start Date End Date Kirk Randle MD [address] [place] [address] [place] [id number] PCP - General Internal Medicine 06/05/21 Ced Victoria MD [address] [place] [address] [address] [place] [address] Belt Lacer Cardiovascular Disease 04/05/21 Virgie Trivedi NP [address] [place] [address] [address] [place] [address] Nurse Practitioner Cardiology 04/05/21 Alana Celaya NP [address] [place] [address] [facility] [place] [address] Nurse Practitioner Cardiology 07/17/23 documented as of this encounter
--- OUTSIDE RECORDS SUMMARY | 2025-01-05 10:59 | XMS_ITS | Encounter Summary ---
Author Organization [facility] Address [address] [place] [address] Care Team Providers Care Finding Fastener Name Role Phone Kirk Randle MD Primary Care Provider [phone] Ced Victoria MD Unavailable [phone] Virgie Trivedi SURFACE LAY OUT TECHNICIAN Unavailable [phone] Kirk Randle MD Primary Care Provider [phone] Alana Celaya SURFACE LAY OUT TECHNICIAN Unavailable [phone] Encounter Details Date Type Department Care Team Description 05/23/2021 SCAN Medical Records [address] [place] [address] Feliz Gonzalez Social History Tobacco Use Types [...] on filedocumented in this encounter Care Teams Finding Fastener Relationship Specialty Start Date End Date Kirk Randle MD PCP - General Internal Medicine 07/12/20 06/04/21 Kirk Randle MD PCP - General Internal Medicine 06/05/21 Ced Victoria MD [address] [place] [address] [address] [place] [address] Truck Rental Service Attendant Cardiovascular Disease 04/05/21 Virgie Trivedi NP [address] [place] [address] [address] [place] [address] Nurse Practitioner Cardiology 04/05/21 Alana Celaya NP [address] [place] [address] [facility] [place] [address] Nurse Practitioner Cardiology 07/17/23 documented as of this encounter
--- OUTSIDE RECORDS SUMMARY | 2025-01-05 10:59 | XMS_ITS | Encounter Summary ---
Author Organization [facility] Address [address] [place] [address] Care Team Providers Care Sales Lead Name Role Phone Ced Victoria MD Unavailable [phone] Virgie Trivedi NP Unavailable [phone] Kirk Randle MD Primary Care Provider [phone] Alana Celaya NP Unavailable [phone] Encounter Details Date Type Department Care Team Description 08/13/2022 Barrel Dedenting Machine Operator Report Medical Records [address] [place] [id number] [place] [address] Social History Tobacco Use Types Packs/Day Years [...] filedocumented in this encounter Care Teams Sales Lead Relationship Specialty Start Date End Date Kirk Randle MD [address] [place] [address] [address]IVE [address] [place] [address] PCP - General Internal Medicine 06/05/21 Ced Victoria MD [address] [place] [address] [address] [place] [address] Piece Maker Cardiovascular Disease 04/05/21 Virgie Trivedi NP [address] [place] [address] [address] [place] [address] Nurse Practitioner Cardiology 04/05/21 Alana Celaya NP [address] [place] [address] [facility] [place] [address] Nurse Practitioner Cardiology 07/17/23 documented as of this encounter
--- OUTSIDE RECORDS SUMMARY | 2025-01-05 10:59 | XMS_ITS ---
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??Sex:Male Deshaun e:11/20/2024 Address:[address] [place], [place] [phone] Pcp:Kirk Randle MD Subjective: * Chief Complaints: [...] iv antiboitics 06/2022 * Hospitalization/Major Diagno stic Procedure:?[facility] [place] ER pt passed out for two seconds, lab work was done everything came out fine. [facility] [...] ?Marital status: single. ?Occupation: retired [employer]. * Medications:?TakingAspirin 8 1 MG Tablet [...] of skin - L97.421? 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 * Procedure Codes:?01799 ACTIV E WOUND CARE/20 CM OR <, [...] Date:? Generated for Jaelyn de la cruz/Armond/Myron on:?01/05/2025 10:59 AM EDT History and Physical Notes * [...]
--- OUTSIDE RECORDS SUMMARY | 2025-01-05 10:59 | XMS_ITS | Encounter Summary ---
Author Organization [facility] Address [address] [place] [address] Care Team Providers Care Cooling Pipe Inspector Name Role Phone Kirk Randle MD Primary Care Provider [phone] Ced Victoria MD Unavailable [phone] Virgie Trivedi NETWORK CONSULTANT Unavailable [phone] Kirk Randle MD Primary Care Provider [phone] Alana Celaya NETWORK CONSULTANT Unavailable [phone] Reason for Visit * Reason Onset Date Comments VNA Call 05/18/2021 Encounter Details Date Type Department Care Team Description 05/18/2021 Telephone Internal Medicine - [address], [address] [place] [address] Kirk Randle MD [address] [place] [address] VNA Call Social History Tobacco Use Types [...] * Telephone Encounter - Kristen Barragan - 05/18/2021 3:52 PM EDT FYI PLEASE SEE BELOW Verbal Orders Given * Telephone Encounter - Cheryl Vora - 05/18/2021 3:46 PM EDT VNA CALL Which [facility]NA office is calling? [facility] Full name of caller: Dorcas 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 A nurse Is the caller at the patients home?: NO Reason for call: need verbal orders for usp, PT and OT Does caller need an urgent call back? NO Was CONTACT Telephone # obtained above?: YES Fax #: documented in this encounter Plan of Treatment Not on file documented as of this encounter Visit Diagnoses Not on filedocumented in this encounter Care Teams Cooling Pipe Inspector Relationship Specialty Start Date End Date Kirk Randle MD PCP - General Internal Medicine 07/12/20 06/04/21 Kirk Randle MD PCP - General Internal Medicine 06/05/21 Ced Victoria MD [address] [place] [address] [place] [address] Human Resources Receptionist Cardiovascular Disease 04/05/21 Virgie Trivedi NP [address] [place] [address] [address] [place] [address] Nurse Practitioner Cardiology 04/05/21 Alana Celaya NP [address] [place] [address] [facility] [place] [address] Nurse Practitioner Cardiology 07/17/23 documented as of this encounter
--- OUTSIDE RECORDS SUMMARY | 2025-01-05 10:59 | XMS_ITS | Encounter Summary ---
Author Organization [facility] Address [address] [place] [address] Care Team Providers Care Cryptographic Vulnerability Analyst Name Role Phone Kirk Randle MD Primary Care Provider [phone] Ced Victoria MD Unavailable [phone] Virgie Trivedi LITHOGRAPHER HELPER Unavailable [phone] Kirk Randle MD Primary Care Provider [phone] Alana Celaya LITHOGRAPHER HELPER Unavailable [phone] Encounter Details Date Type Department Care Team Description 05/04/2021 Hospital Medical Records [address] [place] [address] Elyssa Randall PA-C Social History Tobacco Use [...] on filedocumented in this encounter Care Teams Cryptographic Vulnerability Analyst Relationship Specialty Start Date End Date Kirk Randle MD PCP - General Internal Medicine 07/12/20 06/04/21 Kirk Randle MD PCP - General Internal Medicine 06/05/21 Ced Vitcoria MD [address] [place] [address] [address]IVE [address] [place] [address] Air Conditioning Equipment Mechanic Cardiovascular Disease 04/05/21 Virgie rTivedi NP [address] [place] [address] [address] [place], [place] [phone] Nurse Practitioner Cardiology 04/05/21 Alana Celaya NP [address] [place] [address] [facility] [place] [address] Nurse Practitioner Cardiology 07/17/23 documented as of this encounter
--- OUTSIDE RECORDS SUMMARY | 2025-01-05 10:59 | XMS_ITS | Encounter Summary ---
Author Organization [facility] Address [address] [place] [address] Care Team Providers Care Barber Tool Sharpener Name Role Phone Ced Victoria MD Unavailable [phone] Virgie Trivedi NP Unavailable [phone] Kirk Randle MD Primary Care Provider [phone] Alana Celaya NP Unavailable [phone] Reason for Visit * Reason Onset Date Comments VNA Call 06/19/2021 Encounter Details Date Type Department Care Team Description 06/19/2021 Telephone Internal Medicine - [address], [address] [place], [place] [phone] Kirk Randle MD [address] [place], [place] [phone] VNA Call Social History Tobacco Use Types [...] of caller: Pat Matias 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 protective services social worker Is the caller at the patients home?: [...] on filedocumented in this encounter Care Teams Barber Tool Sharpener Relationship Specialty Start Date End Date Kirk Randle MD [address] [place] [address] [place] [address] PCP - General Internal Medicine 06/05/21 Ced Victoria MD [address] [place] [address] [place] [address] Radiation / Chemistry Technician Cardiovascular Disease 04/05/21 Virgie Trivedi NP [address] [place] [address] [place] [address] Nurse Practitioner Cardiology 04/05/21 Alana Celaya NP [address] [place] [address] [facility] [place] [address] Nurse Practitioner Cardiology 07/17/23 documented as of this encounter
--- OUTSIDE RECORDS SUMMARY | 2025-01-05 10:59 | XMS_ITS | Encounter Summary ---
Author Organization [facility] Address [address] [place] [address] Care Team Providers Care Manager Customs Name Role Phone Kirk Randle MD Primary Care Provider [phone] Encounter Details Date Type Department Care Team (Late st Contact Info) Description 12/16/2024 Telephone Internal Medicine - [place] [address] [phone] Kirk Randle MD [address] [address] Social History Tobacco Use Types Packs/Day Years [...] as of this encounter Progress Notes * Lian Chow - 12/16/2024 11:14 AM EDT Ins referral documented in this encounter Plan of Treatment Upcoming Encounters Date Type Department Care Team (Late st Contact Info) Description 03/01/2025 11:00 AM EDT Office Visit Internal Medicine [facility] [address] [phone] Kirk Randle MD [address] [address] 04/19/2025 10:10 AM EDT Office Visit [facility] [address] [place] [phone] Virgie Trivedi NP [address] [place] [address] [address] [place] [address] 07/14/2025 1:00 PM EST Appointment [facility] Ultrasound [address] [place] [address] documented as of this encounter Visit Diagnoses Not on filedocumented in this encounter Additional Health Concerns Assessment Noted Time PHQ-9 Depression Total Score: 0 09/30/19 25 9:22 AM EST A fall risk assessment has been complete d for the patient 09/30/2024 9:20 AM EST documented as of this encounter Care Teams Manager Customs Relationship Specialty Start Date End Date Kirk Randle MD 175 [facility] [address] [place] [address] PCP - General Internal Medicine 07/12/20 documented as of this encounter
--- OUTSIDE RECORDS SUMMARY | 2025-01-05 10:59 | XMS_ITS ---
Author [facility] Address [address] [place] [address] Care Team Providers Care Supply Technician Name Role Phone Kirk Randle MD Primary Care Provider UnavailAnuradha Camp Unavailable [phone] Allergies Allergen (clinical drug ingredient) Drug/Non Drug Allergy documented on EMR Reaction Allergy Type Onset Date Status clopidogrel Plavix rash Drug Allergy Activ e REASON FOR VISIT Painful Nail(s) aggrevated by shoes and causing difficulty standing/walking., At Risk Footcare, Open sore, Skin problem(s) Medications Medication SIG [...] disabled from 07/27/15 thru 09/16/15 09/14/2015 Not-Taking Ibuprofen 800 MG 1 tablet every Orall y Three times a day for 14 days 07/04/2015 Not-Taking Cipro 500 MG 1 tablet Orally Twic e a day for 10 day(s) 08/24/2015 Not-Taking Mupirocin 2 % 1 application Externally Twice a day to any open cuts for 30 days 10/20/2024 Active Simvastatin 40 MG 1 tablet in the even ing Orally Once a day for 30 day(s) Active Warfarin Sodium 5 MG 1 tablet Orally Two times a Week for 30 day(s) Active Ammonium Lactate 12 % 1 application Externally to affected areas of dry skin to feet except for between the toes Twice a day for 30 days Active Ammonium Lactate 12 [...] 30 day(s) Active Multivitamin Active Furosemide Active Social History Tobacco Use: Social History Observation Description Date Details (start date - stop date) Never Smoker NA - NA Tobacco Use/Smoking Question Answer Notes Are you a: nonsmoker Additional Findings: Tobacco Non-User Current no n-smoker Tobacco use other than smoking: Question Answer Notes Are you an other tobacco user? 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, bilateral legs I70.203 ; Xerosis of skin L85.3 ; Tinea unguium B35.1 ; Pain in right toe(s) M79.674 ; Pain in left toe(s) M79.675 ; Other hammer toe(s) (acquired), left foot M20.42 ; Other hammer toe(s) (acquired), right foot M20.41 and Venous insufficiency I87.2 Assessments Encounter Date Diagnosis (ICD Code) Assessment Notes Treatment Notes Treatment Clinical Notes Section Notes 12/22/2024 Unspecified atherosclerosis of pitka's point arteries of extremities, bilateral legs (ICD-10 - I70.203) 12/22/2024 Xerosis of skin (ICD-10 - L85.3) 12/22/2024 Tinea unguium (ICD-10 - B35.1) 12/22/2024 Pain in right toe(s) (ICD-10 - M79.674) 12/22/2024 Pain in left toe(s) (ICD-10 - M79.675) 12/22/2024 Other hammer toe(s) (acquired), left foot (ICD-10 - M20.42) 12/22/2024 Other hammer toe(s) (acquired), right foot (ICD-10 - M20.41) 12/22/2024 Venous insufficiency (ICD-10 - I87.2) 12/22/2024 Other Plan Of Treatment Next Appt Details Follow Up: 2 Months, Reason: Provider Name:Anuradha amado, 02/23/2025 04:00:00 PM, [address] [place] [address], [phone], Procedure Notes * Category Sub-Category Detail Notes [...] use of a nail nipper and/or dremel-type head wood grinder, to a more viable healthy nail [...] to maintain effectiveness in symptomatic relief - 06086 Keratoma Treatment Parring or Cutting o f [...] risk. Therefore, the benign hyperkeratotic lesions, ( 5) in total, locations as stated and described in the exam ( Plantar/posterior B/L heels , dorsal PIPJ T1, SUB MTH (s) , 1 , B/L;), were pared, and/or cut utilizing a sterile 15 blade, tissue nippers, and/or power dremel instrumentation by the physician of record - 68210 Progress Notes * Vladimir FLYNNDOB:1940 (84 yo M)Acc No.[id number]:12/22/2024 Progress Note Patient:?Vladmiir FLYNN Provider:?Anuradha Hermosillo DPM :1940???Age:84 Y???Sex:Male Deshaun e:12/22/2024 Address:[address] [place] [address], [place], [place] Pcp:Kirk Randle MD Subjective: * Chief Complaints: * ???Painful Nail(s) aggrevate d by shoes and causing difficulty standing/walking.At Risk FootcareOpen soreSkin problem(s) * HPI: ???At Risk footcare:?Pt States Last PCP Visit:?Date?09/23/2024 ???Skin problems:?Nature:?dryness , scaling.?Location:?B/L .?Onset/Cause:?gradual, insidious.?Course:?, improved.?Treatments:?medication ( AM Lactin? and Mupiricin).? [...] iv antiboitics 06/2022 * Hospitalization/Major Diagno stic Procedure:?[facility] [place] [facility] pt passed out for two seconds, lab work was done everything came out fine. 04/2016[facility] cataract surgery 01/22/2017[facility]- fell on [...] ?Marital status: single. ?Occupation: retired [employer]. * Medications:?TakingAspirin 8 1 MG Tablet Delayed [...] TA, T1, T2, T3, T5, T6, T7, T8.?Neurological: ?SENSORY:?Neurological exam reveals intact sensorium, pain sensation normal, vibration sensation intact, pinprick sensation is normal in the lower extremities, Pt denies, anesthesia, burning, paresthesia, tingling, B/L?.?Orthopedic: ?MUSCLE STRENGTH:?5/5 all groups in a symmetrical fashion , B/L , 5/5 all groups in a symmetrical fashion , B/L.?DIGITAL DEFORMITIES:? Amputation t4, T9, Digital contracture, PIPJ, 2-4 B/L, non-reducible with WB or to push-up test, no over, nor underlapping , Amputation t4, T9, Digital contracture, PIPJ, 2-4 B/L, non-reducible with WB or to push-up test, no over, nor underlapping.?Dermatologic: ?SKIN FINDINGS:?Skin exam reveals Keratotic lesion(s) located at, Plantar/posterior B/L heels , dorsal PIPJ T1,??SUB MTH (s) , 1 , B/L;??Skin STILL, shows sign(s) of, dryness, scaling, in a stocking fashion ,with fissure(s) present, B/L heels.?ULCER:?LOCATION, plantar?LEFT heel resolved.?General Examination: ?GENERAL APPEARANCE:?Reveals a pleasant, alert, well nourished, well developed, well hydrated individual, who demonstrates proper attention to hygene/body habitus, and is in no acute distress , Reveals a pleasant, alert, well nourished, well developed, well hydrated individual, who demonstrates proper attention to hygene/body habitus, and is in no acute distress.?ORIENTED:?person, place, and time , person, place, and time.?Vascular: ?DP PULSES (B):? 0/4, B/L.?PT PULSES (B):? 0/4, B/L.?CAPILLARY FILL TIME:?delayed, all digits, B/L.?TROPHIC CONDITION-TEXTURE/ELASTICITY/TURGOR/HAIR GROWTH (B):?fragile, thin, shiny skin, with sparse to absent hair growth.?TEMPERTURE GRADIENT (C):?decreased, cool to cool, proximal to distal, B/L.?PIGMENTATION:?rubrous , Right.? Assessment: * Assessment: 1.?Unspecified atheroscleros is of pitka's point arteries of extremities, bilateral legs - I70.203???2.?Xerosis of skin - L85.3 (Primary)???Specify :Acute problem, Uncomplicated (3),Rx Management (4)???3.?Tinea unguium - B35.1???4.?Pain in right toe(s) - M79.674???5.?Pain in left toe(s) - M79.675???6.?Other hammer toe(s) (acquired), left foot - M20.42???7.?Other hammer toe(s) (acquired), right foot - M20.41???8.?Venous insufficiency - I87.2??? Plan: * Treatment: * Procedures:?Debride Nail 6-10:?Nail [...] use of a nail nipper and/or dremel-type head wood grinder, to a more viable healthy nail [...] to maintain effectiveness in symptomatic relief - 29772.?Keratoma Treatment:?Parring or Cutting of Benign Hyperkeratotic Lesion(s)?(-57) More than 4 Lesions - Due to the at risk nature of the patients medical condition as documented in the exam findings, performance of this keratoderma treatment is medically necessary as its management by an unskilled/untrained nonprofessional would put this patients foot and overall health at risk. Therefore, the benign hyperkeratotic lesions, ( 5) in total, locations as stated and described in the exam (?Plantar/posterior B/L heels?, dorsal PIPJ T1,??SUB MTH (s)?,?1?,?B/L;), were pared, and/or cut utilizing a sterile 15 blade, tissue nippers, and/or power dremel instrumentation by the physician of record - 12782.? * Procedure Codes:?14152 DEBRI DE NAIL, 6 OR MORE, Modifiers: XS 12108 TRIM SKIN LESIONS, OVER 4, Modifiers: XS , Q8 * Preventive Medicine:? ??Counseling:?Discussion:?-12: Office or other outpatient visit for the evaluation and management of an established patient, which required a medically appropriate history and/or examination and STRAIGHTFORWARD level of MEDICAL DECISION MAKING, 1 SELF-LIMITED OR MINOR PROBLEM, MINIMAL- NO AMOUNT/COMPLEXITY OF DATA TO BE REVIEWED/ANALYZED, AND MINIMAL RISK OF COMPLICATION/MORBIDITY. The visit on the day of the [...] have encouraged the patient to call the office.?Xerosis:?Given recent successful results to treatment, The patient is to cont the rx cream as directed.? ??Screening/Special Tests:?Fall Risk?Screening:?No falls in the past year ?FALLS: Screening for Future Fall Risk?Have you had any falls with injury in the past year??No * Follow Up:?2 Months * Images: * Sign off status: Completed true * Provider:?Anuradha Hermosillo DPM Date:? Generated for Jaelyn de la cruz/Armond/Myron on:?01/05/2025 10:59 AM EDT History and Physical Notes * HPI (History of Present Illness) Category Sub-Category Detail Notes Category Not es Skin problems Nature: dryness , scaling Location: B/L Onset/Cause: gradual, insidious Course: , improved Treatments: medication ( AM Lact in and Mupiricin) At Risk footcare Pt States Last PCP Visit: Date: 5 Examination Category Sub-Category Detail Notes Category Not es Neurological SENSORY: Neurological exa m reveals intact sensorium, pain sensation normal, vibration sensation intact, pinprick sensation is normal in the lower extremities, Pt denies, anesthesia, burning, paresthesia, tingling, B/L Dermatologic SKIN FINDINGS: Skin exam reveal s Keratotic lesion(s) located at, Plantar/posterior B/L heels , dorsal PIPJ T1, SUB MTH (s) , 1 , B/L; Skin STILL, shows sign(s) of, dryness, scaling, in a stocking fashion ,with fissure(s) present, B/L heels ULCER: LOCATION, plantar LE FT heel resolved Orthopedic DIGITAL DEFORMITIES: Amputation t4, T9, Digital contracture, PIPJ, 2- 4 B/L, non-reducible with WB or to push-up test, no over, nor underlapping , Amputation t4, T9, Digital contracture, PIPJ, 2-4 B/L, non-reducible with WB or to push-up test, no over, nor underlapping MUSCLE STRENGTH: 5/5 all groups in a symmetrical fashion , B/L , 5/5 all groups in a symmetrical fashion , B/L General Examination GENERAL APPEARANCE: Reveals a pleasant, alert, well nourished, well developed, well hydrated individual, who demonstrates proper attention to hygene/body habitus, and is in no acute distress , Reveals a pleasant, alert, well nourished, well developed, well hydrated individual, who demonstrates proper attention to hygene/body habitus, and is in no acute distress ORIENTED: person, place, and t [place] , person, place, and time Vascular DP PULSES (B): 0/4, B/L PT [...]
--- OUTSIDE RECORDS SUMMARY | 2025-01-05 10:59 | XMS_ITS | Encounter Summary ---
Author Organization [facility] Address [address] [place] [address] Care Team Providers Care Braddisher Name Role Phone Kirk Randle MD Primary Care Provider [phone] Ced Victoria MD Unavailable [phone] Virgie Trivedi AUTO DAMAGE INSURANCE APPRAISER Unavailable [phone] Kirk Randle MD Primary Care Provider [phone] Alana Celaya AUTO DAMAGE INSURANCE APPRAISER Unavailable [phone] Encounter Details Date Type Department Care Team Description 04/27/2021 SCAN Medical Records [address] [place] [address] Octavio Roman Social History Tobacco Use Types [...] on filedocumented in this encounter Care Teams Braddisher Relationship Specialty Start Date End Date Kirk Randle MD PCP - General Internal Medicine 07/12/20 06/04/21 Kirk Randle MD PCP - General Internal Medicine 06/05/21 Ced Victoria MD [address] [place] [address] [address]IVE [address] [place] [address] Artificial Limb Maker Cardiovascular Disease 04/05/21 Virgie Trivedi NP [address] [place] [address] [address]IVE [address] [place] [address] Nurse Practitioner Cardiology 04/05/21 Alana Celaya NP [address] [place] [address] [facility] [place], [place] [address] Nurse Practitioner Cardiology 07/17/23 documented as of this encounter
--- OUTSIDE RECORDS SUMMARY | 2025-01-05 10:59 | XMS_ITS | Encounter Summary ---
Author Organization [facility] Address [address] [place] [address] Care Team Providers Care Inspector Dials Name Role Phone Kirk Randle MD Primary Care Provider [phone] Ced Victoria MD Unavailable [phone] Virgie Trivedi FIRE CHIEF Unavailable [phone] Kirk Randle MD Primary Care Provider [phone] Alana Celaya FIRE CHIEF Unavailable [phone] Encounter Details Date Type Department Care Team Description 05/04/2021 SCAN Medical Records [address] [place] [address] [facility] Social History Tobacco Use Types Packs/Day [...] filedocumented in this encounter Care Teams Inspector Dials Relationship Specialty Start Date End Date Kirk Randle MD PCP - General Internal Medicine 07/12/20 06/04/21 Kirk Randle MD PCP - General Internal Medicine 06/05/21 Ced Victoria MD [address] [place] [address] [address] [place] [address] Echocardiography Tech Cardiovascular Disease 04/05/21 Virgie Trivedi NP [address] [place] [address] [address]IVE [address] [place], [place] [phone] Nurse Practitioner Cardiology 04/05/21 Alana Celaya NP [address] [place] [address] [facility] [place], [place] [phone] Nurse Practitioner Cardiology 07/17/23 documented as of this encounter
--- OUTSIDE RECORDS SUMMARY | 2025-01-05 10:59 | XMS_ITS | Encounter Summary ---
Author Organization [facility] Address [address] [place] [address] Care Team Providers Care Glass Novelty Maker Name Role Phone Ced Victoria MD Unavailable [phone] Virgie Trivedi NP Unavailable [phone] Kirk Randle MD Primary Care Provider [phone] Alana Celaya NP Unavailable [phone] Encounter Details Date Type Department Care Team Description 06/05/2021 Yard Hand Report Medical Records [address] [place] [id number] Abstract, Provider Social History Tobacco Use Types [...] filedocumented in this encounter Care Teams Glass Novelty Maker Relationship Specialty Start Date End Date Kirk Randle MD [address] [place] [address] DRIVE [address] [place] [address] PCP - General Internal Medicine 06/05/21 Ced Victoria MD [address] [place] [address] DR[address] [place] [address] Rubber Liner Cardiovascular Disease 04/05/21 Virgie Trivedi NP [address] [place] [address] [address] [place] [address] Nurse Practitioner Cardiology 04/05/21 Alana Celaya NP [address] [place] [address] [facility] [place] [address] Nurse Practitioner Cardiology 07/17/23 documented as of this encounter
--- OUTSIDE RECORDS SUMMARY | 2025-01-05 10:59 | XMS_ITS | Encounter Summary ---
Author Organization [facility] Address [address] [place] [address] Care Team Providers Care Sheet Metal Worker Supervisor Name Role Phone Ced Victoria MD Unavailable [phone] Virgie Trivedi NP Unavailable [phone] Kirk Randle MD Primary Care Provider [phone] Alana Celaya NP Unavailable [phone] Reason for Visit * Reason Onset Date Comments refill request 08/30/2022 Encounter Details Date Type Department Care Team Description 08/30/2022 Refill Internal Medicine - [address], [address] [place] [address] Kirk Randle MD [address] [place] [address] refill request Social History Tobacco Use Types [...] EST This patient is followed by the [facility] * Telephone Encounter - Shasha June - [...] NO Patients current insurance carrier is: Payor: [facility] / Plan: [employer] PREF HMO $10 [place] / Product Type: MEDICARE RISK Insurance ID #: No Subscriber Number on File documented in this encounter Plan of Treatment Not on file documented as of this encounter Visit Diagnoses Not on filedocumented in this encounter Care Teams Sheet Metal Worker Supervisor Relationship Specialty Start Date End Date Kirk Randle MD [address] [place] [address] [address] [place] [address] PCP - General Internal Medicine 06/05/21 Ced Victoria MD [address] [place] [address] [address] [place] [address] Cold Storage Superintendent Cardiovascular Disease 04/05/21 Virgie Trivedi NP [address] [place] [address] [address] [place], [place] [address] Nurse Practitioner Cardiology 04/05/21 Alana Celaya NP [address] [place] [address] [facility] [place] [address] Nurse Practitioner Cardiology 07/17/23 documented as of this encounter
--- OUTSIDE RECORDS SUMMARY | 2025-01-05 10:59 | XMS_ITS | Encounter Summary ---
Author Organization [facility] Address [address] [place] [address] Care Team Providers Care Vice President Financial Name Role Phone Cde Victoria MD Unavailable [phone] Virgie Trivedi NP Unavailable [phone] Kirk Randle MD Primary Care Provider [phone] Alana Celaya NP Unavailable [phone] Encounter Details Date Type Department Care Team Description 02/26/2022 Agency Sales Management Assistant Report Medical Records [address] [place] [address] [facility] Social History Tobacco Use Types Packs/Day [...] in this encounter Care Teams Vice President Financial Relationship Specialty Start Date End Date Kirk Randle MD [address] [place] [address] [address] [place] [address] PCP - General Internal Medicine 06/05/21 Ced Victoria MD [address] [place] [address] [address] [place] [address] Tiltrotor Crew Chief Cardiovascular Disease 04/05/21 Virgie Trivedi NP [address] [place] [address] [address] [place] [address] Nurse Practitioner Cardiology 04/05/21 Alana Celaya NP [address] [place] [address] [facility] [place] [address] Nurse Practitioner Cardiology 07/17/23 documented as of this encounter
--- OUTSIDE RECORDS SUMMARY | 2025-01-05 10:59 | XMS_ITS | Encounter Summary ---
Author Organization [facility] Address [address] [place] [address] Care Team Providers Care Academic Adviser Name Role Phone Kirk Randle MD Primary Care Provider [phone] Reason for Visit * Reason Onset Date Comments Jer: Insurance Referral 12/25/2024 Encounter Details Date Type Department Care Team (Late st Contact Info) Description 12/25/2024 Telephone Internal Medicine - [place] [address] [facility] [address] [place] [address] Kirk Randle MD [address] [facility] [address] [place] [address] Jer: Insurance Referral Social History Tobacco Use Types Packs/Day [...] as of this encounter Progress Notes * Kirk Randle MD - 12/26/2024 6:42 AM EDT Already has a referral * Sofia Black MA - 12/25/2024 12:46 PM EDT Please advice. * Erlinda Neal - 12/25/2024 9:45 AM EDT Patient called and requested a insurance referral to [facility] because his appt is on Saturday. Cb# [phone] documented in this encounter Plan of Treatment Upcoming Encounters Date Type Department Care Team (Late st Contact Info) Description 03/01/2025 11:00 AM EDT Office Visit Internal Medicine - [place] [address] [facility] [address] [place] [address] Kirk Randle MD [address] [facility] [address] [place] [address] 04/19/2025 10:10 AM EDT Office Visit [facility] [address] [facility] [address] [place] [address] Virgie Trivedi NP [address] [place] [address] [address] [place] [address] 07/14/2025 1:00 PM EST Appointment [facility] Ultrasound [address] [place] [id number] documented as of this encounter Visit Diagnoses Not on filedocumented in this encounter Additional Health Concerns Assessment Noted Time PHQ-9 Depression Total Score: 0 09/30/19 25 9:22 AM EST A fall risk assessment has been complete d for the patient 09/30/2024 9:20 AM EST documented as of this encounter Care Teams Academic Adviser Relationship Specialty Start Date End Date Kirk Randle MD [address] [facility] [address] [place] [address] PCP - General Internal Medicine 07/12/20 documented as of this encounter
--- OUTSIDE RECORDS SUMMARY | 2025-01-05 10:59 | XMS_ITS | Encounter Summary ---
Author Organization [facility] Address [address] [place] [address] Care Team Providers Care Macadam Raker Name Role Phone Ced Victoria MD Unavailable [phone] Virgie Trivedi NP Unavailable [phone] Kirk Randle MD Primary Care Provider [phone] Alana Celaya NP Unavailable [phone] Reason for Visit * Reason Onset Date Comments refill request 03/01/2022 Encounter Details Date Type Department Care Team Description 03/01/2022 Refill Internal Medicine - [address], [address] [place] [address] Kirk Randle MD [address] [place] [address] refill request Social History Tobacco Use Types [...] This patient is follow ed by the [place] [facility] * Telephone Encounter - Kaye Blevins - 03/01/2022 11:33 AM EDT CLIFF 02/02/22 NOV 04/04/22 Patient out of medication documented in this encounter Plan of Treatment Not on file documented as of this encounter Visit Diagnoses Not on filedocumented in this encounter Care Teams Macadam Raker Relationship Specialty Start Date End Date Kirk Randle MD [address] [place] [address] [address] [place] [address] PCP - General Internal Medicine 06/05/21 Ced Victoria MD [address] [place] [address] [address] [place] [address] Luggage Attendant Cardiovascular Disease 04/05/21 Virgie Trivedi NP [address] [place] [address] [address] [place] [address] Nurse Practitioner Cardiology 04/05/21 Alana Celaya NP [address] [place] [address] [facility] [place] [address] Nurse Practitioner Cardiology 07/17/23 documented as of this encounter
--- OUTSIDE RECORDS SUMMARY | 2025-01-05 10:59 | XMS_ITS | Encounter Summary ---
Author Organization [facility] Address [address] [place] [address] Care Team Providers Care Bonsai Culturist Name Role Phone Ced Victoria MD Unavailable [phone] Virgie Trivedi NP Unavailable [phone] Kirk Randle MD Primary Care Provider [phone] Alana Celaya NP Unavailable Encounter Details Date Type Department Care Team Description 02/12/2022 Pilot Submersible Report Medical Records [address] [place] [address] [address] [facility] Social History Tobacco Use Types Packs/Day [...] on filedocumented in this encounter Care Teams Bonsai Culturist Relationship Specialty Start Date End Date Kirk Randle MD [address] [place] [address] [address] [place] [address] PCP - General Internal Medicine 06/05/21 Ced Victoria MD [address] [place] [address] [address] [place] [address] Steel Post Installer Cardiovascular Disease 04/05/21 Virgie Trivedi NP [address] [place] [address] [address] [place] [address] Nurse Practitioner Cardiology 04/05/21 Alana Celaya NP [address] [place] [address] [facility] [place] [address] Nurse Practitioner Cardiology 07/17/23 documented as of this encounter
--- OUTSIDE RECORDS SUMMARY | 2025-01-05 10:59 | XMS_ITS | Encounter Summary ---
Author Organization [facility] Address [address] [place] [address] Care Team Providers Care Cyber Transport Systems Specialist Name Role Phone Ced Victoria MD Unavailable [phone] Virgie Trivedi NP Unavailable [phone] Kirk Randle MD Primary Care Provider [phone] Alana Celaya NP Unavailable [phone] Encounter Details Date Type Department Care Team Description 01/29/2022 Shearer Helper Report Medical Records [address] [place] [address] [place] [address] Social History Tobacco Use Types Packs/Day Years [...] on filedocumented in this encounter Care Teams Cyber Transport Systems Specialist Relationship Specialty Start Date End Date Kirk Randle MD [address] [place] [address] [address] [place] [address] PCP - General Internal Medicine 06/05/21 Ced Victoria MD [address] [place] [address] [address] [place] [address] Flask Pusher Cardiovascular Disease 04/05/21 Virgie Trivedi NP [address] [place] [address] [address] [place] [address] Nurse Practitioner Cardiology 04/05/21 Alana Celaya NP [address] [place] [address] [facility] [place] [address] Nurse Practitioner Cardiology 07/17/23 documented as of this encounter
--- OUTSIDE RECORDS SUMMARY | 2025-01-05 10:59 | XMS_ITS | Encounter Summary ---
Author Organization [facility] Address [address] [place] [address] Care Team Providers Care Airplane Electrician Name Role Phone Kirk Randle MD Primary Care Provider [phone] Ced Victoria MD Unavailable [phone] Virgie Trivedi SHIRRER Unavailable [phone] Kirk Randle MD Primary Care Provider [phone] Alana Celaya SHIRRER Unavailable [phone] Reason for Visit * Reason Onset Date Comments VNA Call 05/31/2021 Encounter Details Date Type Department Care Team Description 05/31/2021 Telephone Adult Medicine [address] [address] Kirk Randle MD [address] [place] [address] VNA Call Social History Tobacco Use Types [...] * Telephone Encounter - Gail Finnegan - 05/31/2021 4:07 PM EDT [place] returning call please try again * Telephone Encounter - Kristen Barragan - 05/31/2021 1:07 PM EDT Called [place] VNA nurse and left a message that the Metroprolol will be refilled and that the pt will wean off the lasix and potassium per Dr. Randle * Telephone Encounter - Kirk Randle MD - 05/31/2021 11:46 AM EDT Needs to check with his entry level sales consultant I told him yesterday * Telephone Encounter - Kristen Barragan - 05/31/2021 11:01 AM EDT Spoke with VNA nurse [place] to reconcile some of the pt meds. Pt had a hospital follow up with you yesterday. [facility]ma says the pt needs new perscriptions sent for Metroprolol and Simvastatin. She also said that the pt has lasix 20 mg and potassium 20 mg in the home. She is questioning if the pt is still taking these meds. * Telephone Encounter - Mary Lantigua - 05/31/2021 9:34 AM EDT VNA CALL Which VNA office is calling? Care tenders Full name of caller: [place] 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 A nurse Is the caller at the patients home?: YES Reason for call: reconcile pts medications. Does caller need an urgent call back? yes Was CONTACT Telephone # obtained above?: YES Fax #: documented in this encounter Plan of Treatment Not on file documented as of this encounter Visit Diagnoses Not on filedocumented in this encounter Care Teams Airplane Electrician Relationship Specialty Start Date End Date Kirk Randle MD PCP - General Internal Medicine 07/12/20 06/04/21 Kirk Randle MD PCP - General Internal Medicine 06/05/21 Ced Victoria MD [address] [place] [address] [address] [place] [address] Solderer Barrel Ribs Cardiovascular Disease 04/05/21 Virgie Trivedi NP [address] [place] [address] [address] [place] [address] Nurse Practitioner Cardiology 04/05/21 Alana Celaya NP [address] [place] [address] [facility] [place] [address] Nurse Practitioner Cardiology 07/17/23 documented as of this encounter
--- OUTSIDE RECORDS SUMMARY | 2025-01-05 10:59 | XMS_ITS | Encounter Summary ---
Author Organization [facility] Address [address] [place] [address] Care Team Providers Care Taker Off Name Role Phone Kirk Randle MD Primary Care Provider [phone] Ced Victoria MD Unavailable [phone] Virgie Trivedi STORE DIRECTOR Unavailable [phone] Kirk Randle MD Primary Care Provider [phone] Alana Celaya STORE DIRECTOR Unavailable [phone] Reason for Visit * Reason Onset Date Comments REFERRAL 11/18/2020 Encounter Details Date Type Department Care Team Description 11/18/2020 Telephone Internal Medicine - [address], [address] [place] [address] Krik Randle MD [address] [place] [address] REFERRAL Social History Tobacco Use Types Packs/Day [...] RANDLE Submitter Type: Provider : 1940 Referral (#[id number]) Specialty Care Review Type: Initial Certification Status : Certified in total Service Type : Medical Care Place Of Service : Office Visits : 6 Service Date : 11/22/2020-11/22/2021 Service Providers Provider Name ID Provider Type DUTCH CAZARES NPI : [id number] Service Provider * Telephone Encounter - Gail Finnegan - 11/18/2020 1:42 PM EST What insurance does the patient have today? [facility] Effective 06/09/09: BS will not retro referral [...] insurance must be obtained and registered in [facility] or their referral can not be [...] is seeing: Dr Marin Cazares NPI # [id number] What specialty is this? Orthopedics DIAGNOSIS Patient [...] Is this visit:Follow Up Address of Specialist: [address] [place] [address] [address] [place] [address] Phone # of Specialist:[phone] Fax #: (if applicable):[phone] Does patient have an appointment scheduled?: YES Date of appointment- (including a retro-request): 11/22/20- for 6 visits Is this appointment related to: Not MVA, WC or Surgery related documented in this encounter Plan of Treatment Not on file documented as of this encounter Visit Diagnoses Not on filedocumented in this encounter Care Teams Taker Off Relationship Specialty Start Date End Date Kirk Randle MD PCP - General Internal Medicine 07/12/20 06/04/21 Kirk Randle MD PCP - General Internal Medicine 06/05/21 Ced Victoria MD [address] [place] [address] [address] [place] [address] Service Counter Cashier Cardiovascular Disease 04/05/21 Virgie Trivedi NP [address] [place] [address] [address] [place] [address] Nurse Practitioner Cardiology 04/05/21 Alana Celaya NP [address] [place] [address] [facility] [place] [address] Nurse Practitioner Cardiology 07/17/23 documented as of this encounter
--- OUTSIDE RECORDS SUMMARY | 2025-01-05 10:59 | XMS_ITS | Encounter Summary ---
Author Organization [facility] Address [address] [place] [address] Care Team Providers Care Down Filler Name Role Phone Kirk Randle MD Primary Care Provider [phone] Ced Victoria MD Unavailable [phone] Virgie Trivedi MANAGER ER Unavailable [phone] Kirk Randle MD Primary Care Provider [phone] Alana Celaya MANAGER ER Unavailable [phone] Encounter Details Date Type Department Care Team Description 08/09/2020 Telephone Internal Medicine - [address], [address] [place], [place] [id number] Kirk Randle MD [address] [place], [place] [address] Social History Tobacco Use Types Packs/Day Years [...] on filedocumented in this encounter Care Teams Down Filler Relationship Specialty Start Date End Date Kirk Randle MD PCP - General Internal Medicine 07/12/20 06/04/21 Kirk Randle MD PCP - General Internal Medicine 06/05/21 Ced Victoria MD [address] [place] [address] [address] [place] [address] Supervisor Color Paste Mixing Cardiovascular Disease 04/05/21 Virgie Trivedi NP [address] [place] [address] [address] [place] [address] Nurse Practitioner Cardiology 04/05/21 Alana Celaya NP [address] [place] [address] [facility] [place] [address] Nurse Practitioner Cardiology 07/17/23 documented as of this encounter
--- OUTSIDE RECORDS SUMMARY | 2025-01-05 10:59 | XMS_ITS | Encounter Summary ---
Author Organization [facility] Address [address] [place] [address] Care Team Providers Care Health Inspector Food Name Role Phone Ced Victoria MD Unavailable [phone] Virgie Trivedi NP Unavailable [phone] Kirk Randle MD Primary Care Provider [phone] Alana Celaya NP Unavailable [phone] Encounter Details Date Type Department Care Team Description 05/17/2022 Home Health Certification Medical Records [address] [place] [address] Abstract, Provider Social History Tobacco Use Types [...] filedocumented in this encounter Care Teams Health Inspector Food Relationship Specialty Start Date End Date Kirk Randle MD [address] [place] [address] [address] [place] [address] PCP - General Internal Medicine 06/05/21 Ced Victoria MD [address] [place] [address] [address] [place] [address] Faculty Instructor Cardiovascular Disease 04/05/21 Virgie Trivedi NP [address] [place] [address] [address] [place] [address] Nurse Practitioner Cardiology 04/05/21 Alana Celaya NP [address] [place] [address] [facility] [place] [address] Nurse Practitioner Cardiology 07/17/23 documented as of this encounter
--- OUTSIDE RECORDS SUMMARY | 2025-01-05 10:59 | XMS_ITS | Encounter Summary ---
Author Organization [facility] Address [address] [place] [address] Care Team Providers Care Supervisor Of Officials Name Role Phone Ced Victoria MD Unavailable [phone] Virgie Trivedi NP Unavailable [phone] Kirk Randle MD Primary Care Provider [phone] Alana Celaya NP Unavailable [phone] Reason for Visit * Reason Onset Date Comments other 10/01/2022 New found edema Encounter Details Date Type Department Care Team Description 10/01/2022 Telephone Cardio [facility] [address] [place] [address] Drive [address] [place] [address] Ced Victoria MD [address] [facility] [address] [place], [place] [address] other (New found edema ) Social History [...] 10:15 AM EST ABI... Spoke with MIGUEL Cehl, she reports some mild edema on the [...] - 10/01/2022 9:44 AM EST Evelyn from [facility] [phone] is callig stating patient has new edema on right foot, pleasecall. documented in this encounter Plan of Treatment Not on file documented as of this encounter Visit Diagnoses Not on filedocumented in this encounter Care Teams Supervisor Of Officials Relationship Specialty Start Date End Date Kirk Randle MD [address] [place] [address] [address] [place], [place] [address] PCP - General Internal Medicine 06/05/21 Ced Victoria MD [address] [place] [address] [address] [place] [address] Reel Slitter Cardiovascular Disease 04/05/21 Virgie Trivedi, GILBERTO [address] [facility] [address] [place] [address] Nurse Practitioner Cardiology 04/05/21 Alana Celaya, GILBERTO [address] [place] [address] [facility] [place] [address] Nurse Practitioner Cardiology 07/17/23 documented as of this encounter
--- OUTSIDE RECORDS SUMMARY | 2025-01-05 10:59 | XMS_ITS | Encounter Summary ---
Author Organization [facility] Address [address] [place] [address] Care Team Providers Care Corral Boss Name Role Phone Ced Victoria MD Unavailable [phone] Virgie Trivedi NP Unavailable [phone] Kirk Randle MD Primary Care Provider [phone] Alana Celaya NP Unavailable [phone] Reason for Visit * Reason Onset Date Comments REFERRAL 06/26/2022 Encounter Details Date Type Department Care Team Description 06/26/2022 Telephone Internal Medicine - [address], [address] [place] [address] Kirk Randle MD [address] [place], [place] [address] REFERRAL Social History Tobacco Use Types Packs/Day [...] Paris Beth - 07/09/2022 10:14 AM EDT [facility] calling to f/u on referral status. * Telephone Encounter - Ethan Lam - 06/26/2022 11:05 AM EDT What insurance does the patient have today? [facility] Effective 06/09/09: BCBS will not retro referral [...] insurance must be obtained and registered in [facility] or their referral can not be [...] Is this visit:Follow Up Address of Specialist: [address] [place] [address] Phone # of Specialist: [phone] Ext. [phone] Fax #: (if applicable): [phone] Does patient have an appointment scheduled?: NO Date of appointment- (including a retro-request): 04/17/22 Is this appointment related to: Not MVA, WC or Surgery related documented in this encounter Plan of Treatment Not on file documented as of this encounter Visit Diagnoses Not on filedocumented in this encounter Care Teams Corral Boss Relationship Specialty Start Date End Date Kirk Randle MD [address] [place] [address] [address] [place] [address] PCP - General Internal Medicine 06/05/21 Ced Victoria MD [address] [place] [place] [address] [address] [place] [address] Radiopharmacist Cardiovascular Disease 04/05/21 Virgie Trivedi NP [address] [place] [place] [address] [address] [place] [address] Nurse Practitioner Cardiology 04/05/21 Alana Celaya NP [address] [place] [address] [facility] [place] [address] Nurse Practitioner Cardiology 07/17/23 documented as of this encounter
--- OUTSIDE RECORDS SUMMARY | 2025-01-05 10:59 | XMS_ITS | Encounter Summary ---
Author Organization [facility] Address [address] [place] [address] Care Team Providers Care Internal Medicine Specialist Name Role Phone Ced Victoria MD Unavailable [phone] Virgie Trivedi NP Unavailable [phone] Kirk Randle MD Primary Care Provider [phone] Alana Celaya NP Unavailable [phone] Reason for Visit * Reason Onset Date Comments REFERRAL 06/05/2021 Encounter Details Date Type Department Care Team Description 06/05/2021 Telephone Internal Medicine - [address], [address] [place], [place] [id number] Kirk Randle MD [address] [place], [place] [id number] REFERRAL Social History Tobacco Use Types Packs/Day [...] [facility] the [facility] today[facility] ?? Effective 06/09/09: BCBS will not [...] insurance must be obtained and registered in [facility] or their referral can not be processed. ?? Is this a retro request? NO. ?? If yes for what date of service do you need the retro referral? N/A ?? Who is calling to request this referral? [facility] ?? If the [...] Is this visit:Initial Visit ?? Address of Specialist:[address] [place] [address] ?? Phone # of Specialist:[phone] ?? Fax #: (if applicable):[phone] ?? Does patient have an appointment scheduled?: YES ?? Date of appointment- (including a retro-request): 06/13/21- 6 visits ?? Is this appointment related to: Not MVA, WC or Surgery related documented in this encounter Plan of Treatment Not on file documented as of this encounter Visit Diagnoses Not on filedocumented in this encounter Care Teams Internal Medicine Specialist Relationship Specialty Start Date End Date Kirk Randle MD [address] [place] [address] [address] [place] [address] PCP - General Internal Medicine 06/05/21 Ced Victoria MD [address] [place] [address] [address] [place] [address] Award Clerk Cardiovascular Disease 04/05/21 Virgie Trivedi NP [address] [place] [address] [address] [place] [address] Nurse Practitioner Cardiology 04/05/21 Alana Celaya NP [address] [place] [address] [facility] [place] [place] [address] Nurse Practitioner Cardiology 07/17/23 documented as of this encounter
--- OUTSIDE RECORDS SUMMARY | 2025-01-05 10:59 | XMS_ITS | Encounter Summary ---
Author Organization [facility] Address [address] [place] [address] Care Team Providers Care Chargeback Analyst Name Role Phone Kirk Randle MD Primary Care Provider [phone] Ced Victoria MD Unavailable [phone] Virgie Trivedi PASTEURIZING SUPERVISOR Unavailable [phone] Kirk Randle MD Primary Care Provider [phone] Alana Celaya PASTEURIZING SUPERVISOR Unavailable [phone] Reason for Visit * Reason Onset Date Comments Provider Call Back 05/31/2021 Encounter Details Date Type Department Care Team Description 05/31/2021 Telephone Internal Medicine - [address], [address] [place] [address] Kirk Randle MD [address] [place] [address] Provider Call Back Social History Tobacco Use [...] on filedocumented in this encounter Care Teams Chargeback Analyst Relationship Specialty Start Date End Date Kirk Randle MD PCP - General Internal Medicine 07/12/20 06/04/21 Kirk Randle MD PCP - General Internal Medicine 06/05/21 Ced Victoria MD [address] [place] [address] [address] [place] [address] Land Clearer Cardiovascular Disease 04/05/21 Virgie Trivedi NP [address] [place] [address] [address] [place] [address] Nurse Practitioner Cardiology 04/05/21 Alana Celaya NP [address] [place] [address] [facility] [place] [address] Nurse Practitioner Cardiology 07/17/23 documented as of this encounter
--- OUTSIDE RECORDS SUMMARY | 2025-01-05 10:59 | XMS_ITS | Encounter Summary ---
Author Organization [facility] Address [address] [place] [address] Care Team Providers Care Signals Intelligence Analysis Manager Name Role Phone Ced Victoria MD Unavailable [phone] Virgie Trivedi NP Unavailable [phone] Kirk Randle MD Primary Care Provider [phone] Alana Celaya NP Unavailable [phone] Encounter Details Date Type Department Care Team Description 12/09/2023 Orders Only Internal Medicine - [address], [address] [place] [address] Kirk Randle MD [address] [place], [place] [id number] Social History Tobacco Use Types Packs/Day Years [...] on filedocumented in this encounter Care Teams Signals Intelligence Analysis Manager Relationship Specialty Start Date End Date Kirk Randle MD [address] [place] [address] [address] [place] [address] PCP - General Internal Medicine 06/05/21 Ced Victoria MD [address] [place] [address] [address] [place] [address] Barrel Lathe Operator Inside Cardiovascular Disease 04/05/21 Virgie Trivedi NP [address] [place] [address] [address] [place] [address] Nurse Practitioner Cardiology 04/05/21 Alana Celaya NP [address] [place] [address] [facility] [place], [place] [id number] Nurse Practitioner Cardiology 07/17/23 documented as of this encounter
--- OUTSIDE RECORDS SUMMARY | 2025-01-05 10:59 | XMS_ITS | Encounter Summary ---
Author Organization [facility] Address [address] [place] [address] Care Team Providers Care Development Geologist Name Role Phone Kirk Randle MD Primary Care Provider [phone] Ced Victoria MD Unavailable [phone] Virgie Trivedi SPECIALTY MANUFACTURING SUPERVISOR Unavailable [phone] Kirk Randle MD Primary Care Provider [phone] Alana Celaya SPECIALTY MANUFACTURING SUPERVISOR Unavailable [phone] Encounter Details Date Type Department Care Team Description 05/25/2021 Orders Only Internal Medicine - [address], [address] [place], [place] [phone] Kirk Randle MD [address] [place], [place] [phone] Social History Tobacco Use Types Packs/Day Years [...] on filedocumented in this encounter Care Teams Development Geologist Relationship Specialty Start Date End Date Kirk Randle MD PCP - General Internal Medicine 07/12/20 06/04/21 Kirk Randle MD PCP - General Internal Medicine 06/05/21 Ced Victoria MD [address] [place] [address] [address] [place] [address] Infection Control Preventionist Cardiovascular Disease 04/05/21 Virgie Trivedi NP [address] [place] [address] [address] [place], [place] [address] Nurse Practitioner Cardiology 04/05/21 Alana Celaya NP [address] [place] [address] [facility] [place], [place] [address] Nurse Practitioner Cardiology 07/17/23 documented as of this encounter
--- OUTSIDE RECORDS SUMMARY | 2025-01-05 11:00 | XMS_ITS | Encounter Summary ---
Author Organization [facility] Address [address] [place] [address] Care Team Providers Care Wool Mixer Name Role Phone Octavio Gross MD Primary Care Provider Unavaila Kathie Cordova PA-C Primary Care Provider + Kirk Randle MD Primary Care Provider [phone] Ced Victoria MD Unavailable [phone] Virgie Trivedi NP Unavailable [phone] Kirk Randle MD Primary Care Provider [phone] Alana Celaya NP Unavailable [phone] Reason for Visit * Reason Onset Date Comments Pre Op Visit 09/10/2018 Cardiac Clearanc e Encounter Details Date Type Department Care Team Description 09/10/2018 Telephone Internal Medicine - [address], [address] [place] [address] Tasneem Mena MD Pre Op Visit (Cardiac [...] on filedocumented in this encounter Care Teams Wool Mixer Relationship Specialty Start Date End Date Octavio Gross MD PCP - General Internal Medicine 05/19/18 02/22/20 Kathie Le PA-C PCP - General Internal Medicine 02/23/20 07/11/20 Kirk Randle MD PCP - General Internal Medicine 07/12/20 06/04/21 Kirk Randle MD PCP - General Internal Medicine 06/05/21 Ced Victoria MD [address] [place] [address] [address] [place], [place] [phone] Field Radio Technician Cardiovascular Disease 04/05/21 Virgie Trivedi NP [address] [place] [address] [address] [place] [address] Nurse Practitioner Cardiology 04/05/21 Alana Celaya NP [address] [place] [address] [facility] [place], [place] [address] Nurse Practitioner Cardiology 07/17/23 documented as of this encounter
--- OUTSIDE RECORDS SUMMARY | 2025-01-05 11:00 | XMS_ITS | Encounter Summary ---
Author Organization [facility] Address [address] [place] [address] Care Team Providers Care Key Sander Name Role Phone Octavio Gross MD Primary Care Provider Unavaila Kathie Cordova PA-C Primary Care Provider + Kirk Randle MD Primary Care Provider [phone] Ced Victoria MD Unavailable [phone] Virgie Trivedi NP Unavailable [phone] Kirk Randle MD Primary Care Provider [phone] Alana Celaya NP Unavailable [phone] Reason for Referral * EXTERNAL (Routine) - Authorized/Booked Specialty Diagnoses / Procedures Referred By Jacoby díaz Referred To Contact Ophthalmology Procedures REFERRAL TO EXTERNAL OPHTHALMOLOGY Octavio Gross MD [address] [place] [address] [place] [phone] Chris Greer Referral ID Status Reason Start Date Expiration Date V isits Requested Visits Authorized SEE NOTE Authorized/B ooked 11/17/2018 02/18/2019 1 1 Reason for Visit * Reason Onset Date Comments Masonry Instructor Feedback 11/17/2018 Dr. Greer Encounter Details Date Type Department Care Team Description 11/17/2018 Telephone Internal Medicine [address], [address] [place] [address] Octavio Gross MD Masonry Instructor Feedback (Dr. Greer) Social History Tobacco Use [...] be obtained and registered in [facility] or their referral can not be processed. [...] YES Is this visit:Initial Visit Address of Specialist:[address] [place] [address] Phone # of Specialist:[phone] Fax #: (if applicable):[phone] Does patient have an appointment scheduled?: YES Date of appointment- (including a retro-request): 12/15/2018 Is this appointment related to: Not MVA, WC or Surgery related documented in this encounter Plan of Treatment Not on file documented as of this encounter Visit Diagnoses Not on filedocumented in this encounter Care Teams Key Sander Relationship Specialty Start Date End Date Octavio Gross MD PCP - General Internal Medicine 05/19/18 02/22/20 Kathie Le PA-C PCP - General Internal Medicine 02/23/20 07/11/20 Kirk Randle MD PCP - General Internal Medicine 07/12/20 06/04/21 Kirk Randle MD PCP - General Internal Medicine 06/05/21 Ced Victoria MD [address] [place] [address] [address] [place] [address] Edge Bander Operator Cardiovascular Disease 04/05/21 Virgie Trivedi NP [address] [place] [address] [address] [place] [address] Nurse Practitioner Cardiology 04/05/21 Alana Celaya NP [address] [place] [address] [facility] [place] [address] Nurse Practitioner Cardiology 07/17/23 documented as of this encounter
--- OUTSIDE RECORDS SUMMARY | 2025-01-05 11:00 | XMS_ITS | Encounter Summary ---
Author Organization [facility] Address [address] [place] [address] Care Team Providers Care Stockbroker Name Role Phone Octavio Gross MD Primary Care Provider Unavaila Kathie Cordova PA-C Primary Care Provider + Kirk Randle MD Primary Care Provider [phone] Ced Victoria MD Unavailable [phone] Virgie Trivedi NP Unavailable [phone] Kirk Randle MD Primary Care Provider [phone] Alana Celaya NP Unavailable [phone] Encounter Details Date Type Department Care Team Description 05/28/2019 Orders Only Medical Records [address] [place] [address] Rogers Delong MD Social History Tobacco Use [...] on filedocumented in this encounter Care Teams Stockbroker Relationship Specialty Start Date End Date Octavio Gross MD PCP - General Internal Medicine 05/19/18 02/22/20 Kathie Le PA-C PCP - General Internal Medicine 02/23/20 07/11/20 Kirk Randle MD PCP - General Internal Medicine 07/12/20 06/04/21 Kirk Randle MD PCP - General Internal Medicine 06/05/21 Ced Victoria MD [address] [place] [address] [address] [place] [id number] Raw Products Director Cardiovascular Disease 04/05/21 Virgie Trivedi NP [address] [place] [address] [address] [place] [address] Nurse Practitioner Cardiology 04/05/21 Alana Celaya NP [address] [place] [address] [facility] [place] [address] Nurse Practitioner Cardiology 07/17/23 documented as of this encounter
--- OUTSIDE RECORDS SUMMARY | 2025-01-05 11:00 | XMS_ITS | Encounter Summary ---
Author Organization [facility] Address [address] [place] [address] Care Team Providers Care Chief Optometry Service Name Role Phone Octavio Gross MD Primary Care Provider Unavaila Kathie Cordova PA-C Primary Care Provider + Kirk Randle MD Primary Care Provider [phone] Ced Victoria MD Unavailable [phone] Virgie Trivedi NP Unavailable [phone] Kirk Randle MD Primary Care Provider [phone] Alana Celaya NP Unavailable [phone] Encounter Details Date Type Department Care Team Description 06/15/2019 Volcanology Teacher Report Medical Records [address] [place] [address] Svetlana Escobar MD Social History Tobacco Use [...] on filedocumented in this encounter Care Teams Chief Optometry Service Relationship Specialty Start Date End Date Octavio Gross MD PCP - General Internal Medicine 05/19/18 02/22/20 Kathie Le PA-C PCP - General Internal Medicine 02/23/20 07/11/20 Kirk Randle MD PCP - General Internal Medicine 07/12/20 06/04/21 Kirk Randle MD PCP - General Internal Medicine 06/05/21 Ced Victoria MD [address] [place] [address] [address] [place] [address] Wood Piler Cardiovascular Disease 04/05/21 Virgie Trivedi NP [address] [place] [address] [address] [place] [address] Nurse Practitioner Cardiology 04/05/21 Alana Celaya NP [address] [place] [address] [facility] [place], [place] [phone] Nurse Practitioner Cardiology 07/17/23 documented as of this encounter
--- OUTSIDE RECORDS SUMMARY | 2025-01-05 11:00 | XMS_ITS | Encounter Summary ---
Author Organization [facility] Address [address] [place] [address] Care Team Providers Care Java Groovy Developer Name Role Phone Ced Victoria MD Unavailable [phone] Virgie Trivedi NP Unavailable [phone] Kirk Randle MD Primary Care Provider [phone] Alana Celaya NP Unavailable [phone] Encounter Details Date Type Department Care Team Description 11/25/2023 Home Health Certification Medical Records [address] [place] [address] Social History Tobacco Use Types Packs/Day Years [...] on filedocumented in this encounter Care Teams Java Groovy Developer Relationship Specialty Start Date End Date Kirk Randle MD [address] [place] [address] [address] [place] [address] PCP - General Internal Medicine 06/05/21 Ced Victoria MD [address] [place] [address] [address] [place] [address] Reel Cutter Cardiovascular Disease 04/05/21 Virgie Trivedi NP [address] [place] [address] [address] [place], [place] [address] Nurse Practitioner Cardiology 04/05/21 Alana Celaya NP [address] [place] [address] [facility] [place] [address] Nurse Practitioner Cardiology 07/17/23 documented as of this encounter
--- OUTSIDE RECORDS SUMMARY | 2025-01-05 11:00 | XMS_ITS | Clinical Summary ---
Author Organization [facility] Address [address] [place] [address] Phone Care Team Providers Care Brand Activation Manager Name Role Phone Kirk Randle MD Primary Care Provider [phone] Allergies Active Allergy Reactions Criticality Noted Date Comments Clopidogrel Rash 07/26/2010 Medications metoprolol succinate (TOPROL-XL) 25 mg 24 hr tablet TAKE ONE TABLET BY MOUTH EVERY DAY 90 tablet 1 024 Active ADHESIVE TAPE TOP 1 each by Not Applicable route. every 30 days. 023 Active medical supply, miscellaneous (MISCELLANEOUS MEDICAL SUPPLY MISC) Apply 1 each topically 3 (three) times a day. 022 Active medical supply, miscellaneous (MISCELLANEOUS MEDICAL SUPPLY MISC) 1 each by Not Applicable route. every 30 days. 023 Active medical supply, miscellaneous (MISCELLANEOUS MEDICAL SUPPLY MISC) 1 each by Not Applicable route 3 (three) times a day. 022 Active medical supply, miscellaneous (MISCELLANEOUS MEDICAL SUPPLY MISC) 2 each by Not Applicable route 3 (three) times a day. 022 Active multivitamin (MULTIPLE VITAMINS ORAL) Take 1 tablet by mouth 1 (one) time each day. Active OMEGA-3 FATTY ACIDS ORAL Take 1 capsule by mouth 1 (one) time each day. Active miscellaneous medical supply misc Apply 2 each topically. every 30 days. 023 Active miscellaneous medical supply misc Apply 2 each topically. every 30 days. 023 Active acetaminophen (TYLENOL) 325 mg tablet Take 2 tablets (650 mg total) by mouth every 6 (six) hours if needed for mild pain or moderate pain. for up to 10 days. 023 Active fluticasone propionate (FLONASE) 50 mcg/actuation nasal spray Administer 2 sprays into each nostril 1 (one) time each day. for 360 days. 024 2024 Active furosemide (LASIX) 20 mg tablet Take 1 tablet (20 mg total) by mouth 1 (one) time each day. 024 Active warfarin (COUMADIN) 5 mg tablet Take 1 tablet (5 mg total) by mouth. See Admin Instructions for 90 days. May cause heavy bleeding. Take at same time every day. Do not change dietary habits. Active warfarin (COUMADIN) 5 mg tablet Take 1 tablet (5 mg total) by mouth 1 (one) time each day with dinner. See Admin Instructions. May cause heavy bleeding. Take at same time every day. Do not change dietary habits. [facility] directs coumadin instructions 90 tablet 11 025 Active atorvastatin (LIPITOR) 20 mg tablet TAKE ONE TABLET BY MOUTH EVERY DAY 90 tablet 1 025 Active atorvastatin (LIPITOR) 20 mg tablet Take 1 tablet (20 mg total) by mouth 1 (one) time each day. 90 tablet 025 2024 Discontinued Active Problems Problem Noted Date Diagnosed Date Peripheral arterial disease ([facility] V24) 2022 Cardiomyopathy ([facility] V24, [facility] V28) 2021 Overview (08/04/2024): Last Assessment & Plan: Last [...] 12/12/2018 Overview (08/04/2024): R knee Atrial fibrillation (CMS/HCC V24, CMS/HCC V28) 0 05/14/2018 Overview (08/04/2024): Jantoven/ warfarin Last Assessment & Plan: Patient presents in atrial fibrillation with slow ventricular response of 50 bpm. He denies palpitations and has been historically asymptomatic while in atrial fibrillation. He continues to be anticoagulated on Coumadin for stroke reduction. [id number] score of 5 for heart failure, hypertension, [...] (coronary artery disease) 05/14/2018 Overview (08/04/2024): Old VT; Stress test -ve 2010, treated in [facility] in 2003, stents put in. Last [...] Plan: Patient continues to follow closely with [facility] vascular surgery. Assessment & Plan (10/09/2024 [...] Encounters Date Type Department Care Team Description 12/25/2024 Telephone Internal Medicine - [employer] [address] [facility] [address] [place] [address] Kirk Randle MD Joseph: Insurance Referral 12/16/2024 Telephone Internal Medicine - [employer] [address] [facility] [address] [place] [address] Kirk Randle MD 11/02/2024 [facility] [address] [facility] [address] [place] [address] Yumi Jordan [place] faxed order ([employer]) 10/09/2024 9:50 AM EST Office Visit [facility] [address] [place] [phone] Ced Victoria MD Atrial fibrillation, unspecified type (CMS/HCC V24, CMS/HCC V28) (Primary Dx); Coronary artery disease involving [place] coronary artery of [place] heart without angina pectoris; Dilated cardiomyopathy (CMS/HCC V24, CMS/HCC V28); Chronic venous insufficiency; Cardiomyopathy, unspecified type (CMS/HCC V24, CMS/HCC V28) 10/07/2024 Telephone Internal Medicine - [address] [place] [address] Kirk Randle MD Joseph - Referral from Last 3 Months Immunizations Name Administration [...] PROCEDURE: HISTORICAL CARDIAC CATH KNEE ARTHROSCOPY PROCEDURE: KS ARTHROSCOPY AID [place] SPINE&/FX KNEE W/O FIXJ OTHER SURGICAL HISTORY 05/19/2018 Right PROCEDURE: KS ENDOVEN ABLTJ INCMPTNT VEIN XTR LASER 1ST VEIN TOTAL KNEE ARTHROPLASTY 10/07/2018 Right PROCEDURE: HISTORICAL TOTAL KNEE REPLACE; COMMENT: [facility] - Dr. Cazares EYE SURGERY Bilateral PROCEDURE: HISTORICAL EYE SURGERY; COMMENT: cataracts BYPASS GRAFT 08/16/2022 Right PROCEDURE: KS AMPUTATION TOE METATARSOPHALANGEAL JOINT; COMMENT: R 5th toe OTHER SURGICAL HISTORY 08/16/2022 Right PROCEDURE: KS INCISION BONE CORTEX FOOT; COMMENT: R 5th metatarsal OTHER SURGICAL HISTORY 10/23/2022 PROCEDURE: KS SLCTV CATHJ 3RD+ ORD SLCTV ABDL PEL/LXTR BRNCH OTHER SURGICAL HISTORY 10/23/2022 PROCEDURE: X-RAY EXAM OF ARM/LEG ARTERY OTHER SURGICAL HISTORY 10/23/2022 PROCEDURE: ULTRASOUND GUIDANCE FOR VASCULAR AC OTHER SURGICAL HISTORY 07/09/2023 PROCEDURE: KS REVSC OPN/PRQ TIB/RON W/ANGIOPLASTY UNI OTHER SURGICAL HISTORY 07/09/2023 PROCEDURE: ULTRASOUND GUIDANCE FOR VASCULAR AC Medical History Medical History Date Comments Atrial fibrillation (CMS/HCC V24, CMS/HCC V28) DX:Atrial fibrillation (HCC) Coronary artery disease DX:Coron randy artery disease; COMMENT: Old VT; Stress test -ve 2010, treated in [facility] in 2004, stents put in. Cataracts, bilateral [...] AM EDT Office Visit Internal Medicine - [address] [place] [phone] Kirk Randle MD [address] [facility] [place] [address] [place] [address] 04/19/2025 10:10 AM EDT Office Visit [facility] [address] [place] [phone] Virgie Trivedi, GILBERTO [address] [place] [address] [address] [place] [address] [place] [address] 07/14/2025 1:00 PM EST Appointment [facility] [address] [place] [address] Health Maintenance Due Date Last Done Comments DTaP,Tdap,and Td Vaccines (1 - Tdap) 1961 Zoster Vaccines (1 of 2) 01/02/1992 RSV Immunization Adult Patients (1 - 1-dose 75+ series) 2017 Social Influencers of Health Screening 08/18/2022 COVID-19 Vaccine ( season) 2024 06/08/2024, 06/14/2023, 07/17/2022, Additional history exists Depression Screening 09/30/2025 09/30/2024 Falls Risk Assessment 09/30/2025 09/30/2024 Hypertension/CHF/CAD Annual BMP Blood Test 09/30/2025 09/30/2024, 05/23/2023 Medicare Annual Wellness Visit 09/30/2025 09/30/2024 Cholesterol Screening (Lipid Panel) 09/30/2029 09/30/2024, 12/04/2021 Pneumococcal Vaccine: 50+ Years Completed 07/30/2017, 06/21/2015 Influenza Vaccine Completed 06/08/2024, , 07/03/2022, Additional [...] age to complete this topic Meningococcal B Vaccine Aged Out No l onger eligible based on patient's age to complete this topic RSV Immunization Patients Under 20 months Aged Out No longer eligible based on patient's age to complete this topic Varicella Vaccines Aged Out No longer eligible based on patient's age to complete this topic Procedures Procedure Name Priority Date/Time Associated Diagnosis Comments ECG 12-LEAD Routine 10/09/2024 10:25 AM EST Atrial fibrillation, unspecified type (CMS/HCC V24, CMS/HCC V28) COMPREHENSIVE METABOLIC PANEL Routine 09/30/2024 10:13 AM EST Cardiomyopathy, unspecified type (CMS/HCC V24, CMS/HCC V28) Primary hypertension Hypercholesterolemi a LIPID PANEL WITH REFLEX TO DIRECT LDL Routine 09/30/2024 10:13 AM EST Cardiomyopathy, unspecified type (CMS/HCC V24, CMS/HCC V28) Primary hypertension Hypercholesterolemi a from Last 3 Months or Most Recently Relevant to Health Maintenance Results * ECG 12 lead (10/09/2024 10:25 AM EST) Ventricular Rate ECG 49 BPM GEMUSE Atrial Rate 51 BPM GEMUSE QRS Duration 94 ms GEMUSE Q-T Interval 418 ms GEMUSE QTc 377 ms GEMUSE R Oxford 66 degrees GEMUSE T [place] -5 degrees GEMUSE ECG Interpretation Atrial fibrillation with slow ventricular response Possible Inferior infarct (cited on or before 02-APR-2021) Abnormal ECG When compared with ECG of 24-OCT-2022 16:17, QT has shortened Confirmed by Kathya VICTORIA JAMES ([id number]) on 10/09/2024 5:06:39 PM GEMUSE 10/09/2024 10:2 5 AM EST 10/09/2024 5:06 PM EST us Ced Victoria MD ECG ORDERABLES Final Result Performing Organization Address [facility]/ZIP Co de Phone Number KENYON * Lipid panel with reflex to direct LDL (09/30/2024 10:13 AM EST) Cholesterol 117 0 - 200 mg/dL LAB CHEMISTRY METHOD 09/30/2024 1:14 PM EST [facility] Triglycerides 77 0 - 150 mg/dL LAB CHEMISTRY METHOD 09/30/2024 1:14 PM EST [facility] HDL 48 >=40 mg/dL LAB CHEMISTRY METHOD 09/30/2024 1:14 PM EST [facility] LDL Calculated 54 0 - 100 mg/dL LAB CHEMISTRY METHOD 09/30/2024 1:14 PM [facility] VLDL Cholesterol Ric 15.4 mg/dL LAB CHEMISTRY METHOD 09/30/2024 1:14 PM [facility] Non HDL Chol. (LDL+VLDL) 69 <145 mg/dL LAB CHEMISTRY METHOD 09/30/2024 1:14 PM EST [facility] Chol/HDL Ratio 2.4 0.0 - 4.4 LAB CHEMISTRY METHOD 09/30/2024 1:14 PM [facility] Blood Venous blood specimen / Unknown Venipuncture / Unknown 09/30/2024 10:13 AM EST 09/30/2024 11:01 AM EST us Kirk Randle MD LAB BLOOD ORDERABLES Final Resul t [facility] [address] [place] [address], [place] [phone] * (ABNORMAL) Comprehensive metabolic panel (09/30/2024 10:13 AM EST) Sodium 140 133 - 145 mmol/L LAB CHEMISTRY METHOD 09/30/2024 1:14 PM [facility] Potassium 4.2 3.5 - 5.5 mmol/L LAB CHEMISTRY METHOD 09/30/2024 1:14 PM [facility] Chloride 106 96 - 110 mmol/L LAB CHEMISTRY METHOD 09/30/2024 1:14 PM [facility] CO2 27 21 - 32 mmol/L LAB CHEMISTRY METHOD 09/30/2024 1:14 PM [facility] Anion Gap 7 3 - 11 LAB CHEMISTRY METHOD 09/30/2024 1:14 PM [facility] Glucose 92 70 - 100 mg/dL LAB CHEMISTRY METHOD 09/30/2024 1:14 PM [facility] BUN 27(H) 5 - 25 mg/dL LAB CHEMISTRY METHOD 09/30/2024 1:14 PM [facility] Creatinine 1.23 0.70 - 1.30 mg/dL LAB CHEMISTRY METHOD 09/30/2024 1:14 PM [facility] eGFR 59(L) >=60 mL/min/1. 73m2 LAB CHEMISTRY METHOD 09/30/2024 1:14 PM [facility] Comment:Calculation based on the??Chronic Kidney Disease Epidemiology Collaboration (CKD-EPI) equation refit??without adjustment for race. BUN/Creatinine Ratio 22.0 LAB CHEMISTRY METHOD 09/30/2024 1:14 PM [facility] Calcium 9.9 8.5 - 10.5 mg/dL LAB CHEMISTRY METHOD 09/30/2024 1:14 PM [facility] AST (SGOT) 42 10 - 42 unit/L LAB CHEMISTRY METHOD 09/30/2024 1:14 PM [facility] ALT (SGPT) 35 10 - 60 unit/L LAB CHEMISTRY METHOD 09/30/2024 1:14 PM [facility] Alkaline Phosphatase 97 42 - 121 unit/L LAB CHEMISTRY METHOD 09/30/2024 1:14 PM [facility] Total Protein 7.1 6.0 - 8.0 g/dL LAB CHEMISTRY METHOD 09/30/2024 1:14 PM EST [facility] Albumin 4.0 3.2 - 5.0 g/dL LAB CHEMISTRY METHOD 09/30/2024 1:14 PM EST [facility] Total Bilirubin 1.2 0.0 - 1.4 mg/dL LAB CHEMISTRY METHOD 09/30/2024 1:14 PM EST [facility] Blood Venous blood specimen / Unknown Venipuncture / Unknown 09/30/2024 10:13 AM EST 09/30/2024 11:01 AM EST us Kirk Randle MD LAB BLOOD ORDERABLES Final Resul t [facility] [address] [place] [address], from Last 3 Months or Most Recently Relevant to Health Maintenance Insurance [employer] Advance Directives Documents on File Type Date Recorded Patient Disbursing Officer Expl anation Health Care Decision (hx) 07/09/2023 [...] (hx) 03/28/2021 AD CRAFT DIRECTIVE Care Teams Brand Activation Manager Relationship Specialty Start Date End Date Kirk Randle MD [address] [place] [id number] PCP - General Internal Medicine 07/12/20
--- OUTSIDE RECORDS SUMMARY | 2025-01-05 11:00 | XMS_ITS | Encounter Summary ---
Author Organization [facility] Address [address] [place] [address] Care Team Providers Care International Sales Manager Name Role Phone Ced Victoria MD Unavailable [phone] Virgie Trivedi NP Unavailable [phone] Kirk Randle MD Primary Care Provider [phone] Alana Celaya NP Unavailable [phone] Reason for Visit * Reason Onset Date Comments Provider Call Back 04/24/2024 Encounter Details Date Type Department Care Team Description 04/24/2024 Telephone Internal Medicine - [address], [address] [place], [place] [phone] Kirk Randle MD [address] [place], [place] [phone] Provider Call Back Social History Tobacco Use [...] - 04/24/2024 9:55 AM EDT Jeana from [facility] called and stated PT is currently waiting to get a teeth cleaning. They received medical clearance to be ok. However he is on blood thinner medication and req an urgent cb to know if he is still ok to be seen. His appt is for 10:30Am. Please advise CB - [phone] documented in this encounter Plan of Treatment Not on file documented as of this encounter Visit Diagnoses Not on filedocumented in this encounter Care Teams International Sales Manager Relationship Specialty Start Date End Date Kirk Randle MD [address] [place] [address] [place] [address] PCP - General Internal Medicine 06/05/21 Ced Victoria MD [address] [place] [address] [place] [address] Surgical Assist Cardiovascular Disease 04/05/21 Virgie Trivedi NP [address] [place] [address] [place] [address] Nurse Practitioner Cardiology 04/05/21 Alana Celaya NP [address] [place] [address] [facility] [place] [address] Nurse Practitioner Cardiology 07/17/23 documented as of this encounter
--- OUTSIDE RECORDS SUMMARY | 2025-01-05 11:00 | XMS_ITS | Encounter Summary ---
Author Organization [facility] Address [address] [place] [address] Care Team Providers Care Dock Loader Name Role Phone Octavio Gross MD Primary Care Provider Unavaila Kathie Cordova PA-C Primary Care Provider + Kirk Randle MD Primary Care Provider [phone] Ced Victoria MD Unavailable [phone] Virgie Trivedi NP Unavailable [phone] Kirk Randle MD Primary Care Provider [phone] Alana Celaya NP Unavailable [phone] Encounter Details Date Type Department Care Team Description 09/12/2018 Silk Screen Printer Helper Report Medical Records [address] [place] [address] Virgie Trivedi, GILBERTO [address] [place] [address] [place] [address] Social History Tobacco Use Types Packs/Day Years [...] on filedocumented in this encounter Care Teams Dock Loader Relationship Specialty Start Date End Date Octavio Gross MD PCP - General Internal Medicine 05/19/18 02/22/20 Kathie Le PA-C PCP - General Internal Medicine 02/23/20 07/11/20 Kirk Randle MD PCP - General Internal Medicine 07/12/20 06/04/21 Kirk Randle MD PCP - General Internal Medicine 06/05/21 Ced Victoria MD [address] [place] [address] [address] [place], [place] [phone] Tray Filler Cardiovascular Disease 04/05/21 Virgie Trivedi NP [address] [place] [address] [address] [place], [place] [phone] Nurse Practitioner Cardiology 04/05/21 Alana Celaya NP [address] [place] [address] [facility] [place], [place] [phone] Nurse Practitioner Cardiology 07/17/23 documented as of this encounter
--- OUTSIDE RECORDS SUMMARY | 2025-01-05 11:00 | XMS_ITS | Encounter Summary ---
Author Organization [facility] Address [address] [place] [address] Care Team Providers Care Television Director Name Role Phone Octavio Gross MD Primary Care Provider Unavaila Kathie Cordova PA-C Primary Care Provider + Kirk Randle MD Primary Care Provider [phone] Ced Victoria MD Unavailable [phone] Virgie Trivedi NP Unavailable [phone] Kirk Randle MD Primary Care Provider [phone] Alana Celaya NP Unavailable [phone] Encounter Details Date Type Department Care Team Description 01/13/2019 Construction Engineer Report Medical Records [address] [place] [address] Rosalia Ocasio MD Social History Tobacco Use [...] on filedocumented in this encounter Care Teams Television Director Relationship Specialty Start Date End Date Octavio Gross MD PCP - General Internal Medicine 05/19/18 02/22/20 Kathie Le PA-C PCP - General Internal Medicine 02/23/20 07/11/20 Kirk Randle MD PCP - General Internal Medicine 07/12/20 06/04/21 Kirk Randle MD PCP - General Internal Medicine 06/05/21 Ced Victoria MD [address] [place] [address] [address] [place] [address] Director Commercial Sales Cardiovascular Disease 04/05/21 Virgie Trivedi NP [address] [place] [address] [address] [place], [place] [phone] Nurse Practitioner Cardiology 04/05/21 Alana Celaya NP [address] [place] [address] [facility] [place] [address] Nurse Practitioner Cardiology 07/17/23 documented as of this encounter
--- OUTSIDE RECORDS SUMMARY | 2025-01-05 11:00 | XMS_ITS | Encounter Summary ---
Author Organization [facility] Address [address] [place] [address] Care Team Providers Care Bumper Straightener Name Role Phone Ced Victoria MD Unavailable [phone] Virgie Trivedi NP Unavailable [phone] Kirk Randle MD Primary Care Provider [phone] Alana Celaya NP Unavailable [phone] Encounter Details Date Type Department Care Team Description 01/13/2024 Orders Only Medical Records [address] [place] [address] [place] Social History Tobacco Use Types [...] on filedocumented in this encounter Care Teams Bumper Straightener Relationship Specialty Start Date End Date Kirk Randle MD [address] [place] [address] [address] [place] [address] PCP - General Internal Medicine 06/05/21 Ced Victoria MD [address] [place] [address] [address] [place] [address] Fusing Machine Feeder Cardiovascular Disease 04/05/21 Virgie Trivedi NP [address] [place] [address] [address] [place] [address] Nurse Practitioner Cardiology 04/05/21 Alana Celaya NP [address] [place] [address] [facility] [place] [address] Nurse Practitioner Cardiology 07/17/23 documented as of this encounter
--- OUTSIDE RECORDS SUMMARY | 2025-01-05 11:00 | XMS_ITS | Encounter Summary ---
Author Organization [facility] Address [address] [place] [address] Care Team Providers Care Offset Assistant Press Operator Name Role Phone Ced Victoria MD Unavailable [phone] Virgie Trivedi NP Unavailable [phone] Kirk Randle MD Primary Care Provider [phone] Alana Celaya NP Unavailable [phone] Encounter Details Date Type Department Care Team Description 11/27/2023 Orders Only Medical Records [address] [place] [address] [place] Social History Tobacco Use Types [...] on filedocumented in this encounter Care Teams Offset Assistant Press Operator Relationship Specialty Start Date End Date Kirk Randle MD [address] [place] [address] [address] [place] [address] PCP - General Internal Medicine 06/05/21 Ced Victoria MD [address] [place] [address] [address] [place] [address] Brake Repairer Air Cardiovascular Disease 04/05/21 Virgie Trivedi NP [address] [place] [address] [address] [place] [address] Nurse Practitioner Cardiology 04/05/21 Alana Celaya NP [address] [place] [address] [facility] [place] [address] Nurse Practitioner Cardiology 07/17/23 documented as of this encounter
--- OUTSIDE RECORDS SUMMARY | 2025-01-05 11:00 | XMS_ITS | Encounter Summary ---
Author Organization [facility] Address [address] [place] [address] Care Team Providers Care Slide Maker Name Role Phone Ced Victoria MD Unavailable [phone] Virgie Trivedi NP Unavailable [phone] Kirk Randle MD Primary Care Provider [phone] Alana Celaya NP Unavailable [phone] Encounter Details Date Type Department Care Team Description 01/03/2024 Case Packer Report Medical Records [address] [place] [address] Social History Tobacco Use Types Packs/Day Years [...] on filedocumented in this encounter Care Teams Slide Maker Relationship Specialty Start Date End Date Kirk Randle MD [address] [place] [address] [address] [place] [address] PCP - General Internal Medicine 06/05/21 Ced Victoria MD [address] [place] [address] [address] [place] [address] Radar Air Traffic Controller Cardiovascular Disease 04/05/21 Virgie Trivedi NP [address] [place] [address] [address] [place] [address] Nurse Practitioner Cardiology 04/05/21 Alana Celaya NP [address] [place] [address] [facility] [place] [address] Nurse Practitioner Cardiology 07/17/23 documented as of this encounter
--- OUTSIDE RECORDS SUMMARY | 2025-01-05 11:00 | XMS_ITS | Data Portability ---
Author Organization [facility], Main Office Address [address], [address] [place] [address] Care Team Providers Care Kinesiologist Name Role Phone BARI AMIN - 2ND FLOOR OTHER Assessment Encounter Date Assessment Date Assessment LastModified by Organization Details LastModified Time 05/23/2021 05/23/202105/23 wbc 7.2, hgb 13.6, plt 262, na 142, k 3.7, creat 0.8, sed rate 24, crp 3.76 [email or web address] Not available 05/23/2021 12:08:48 Plan of Treatment [...] By Organization Details Last Modified Time 05/23/2021 [id number] exam of pt, revi ew of chart, discussion with social work, interventional radiology 50 minutes [email or web address] Not available 05/23/2021 12:09:48 Reason for Referral None Reported. Problems Name Problem SNOMED Code Status Onset Date Resolution Date Notes Provider Name and Address Organization Details Recorded Time Infective endocarditi s 639885757 Active 2020 STACY SULLIVAN [address], [address], [place], [address], [facility] [employer] 1 08:27:08 Osteoarthri tis 244102517 Active 2020 STACY SULLIVAN [address], [address], [place], [address], [facility] [employer] 1 08:27:39 History of cerebrovasc ular accident 734261608 Active 2020 STACY SULLIVAN [address], [address], [place], [address], [employer] 08:28:06 Recurrent falls 900994557 Active 2020 STACY SULLIVAN [address], [address], [place], [address], [employer] 1 08:28:20 Pressure ulcer Active 2020 STACY SULLIVAN [address], [place], [address], [employer] 1 08:30:05 Deep venous thrombosis of upper extremity 912179991 Active 2020 STACY SULLIVAN [address], [address], [place], [address], [employer] 1 08:30:52 Multinodula r goiter 635921994 Active 2020 STACY SULLIVAN [address], [address], [place], [address], [employer] 08:32:27 Hypomagnese ezequiel 980881643 Active 2020 STACY SULLIVAN [address], [address], [place], [address], [employer] 1 08:57:53 Asthenia 14440812 Active 2020 Rosenda ferro, [employer] 11:24:32 Osteoarthri tis of left knee joint 3539062707301 09 Active 2018 Feliz Gonzalez MD [address], [address], [place], [address], [employer] 9 15:05:21 Essential hypertensio n 70203291 Active 2018 Feliz Gonzalez MD [address], [address], [place], [address], [employer] 9 15:05:25 Mixed hyperlipide ezequiel 848613931 Active 2018 Feliz Gonzalez MD [address], [address], [place], [address], [employer] 15:05:33 Unsteady gait Active 2018 Feliz Gonzalez MD [address], [address], [place], [address], [employer] 9 15:05:38 Atrial fibrillatio n 22739604 Active 2018 STACY SULLIVAN [address], [address], [place], [address], [employer] 9 08:43:44 Problem Notes None recorded. Procedures Surgical History Date Name Laterality Status Provider Name and Address Organization Details Recorded Time percutaneous transluminal coronary angioplasty completed STACY SULLIVAN [address], [address], [place], [address], [employer] 05/05/2021 08:29:08 Imaging Results None recorded. Procedure Notes None recorded. Medical Equipment None Reported. Allergies Allergen ID Allergen Name Allergen Category Reaction Reaction Severity Criticality Documentation Date Start Date Code Code System Note Provider Name and Address Organization Details Recorded Time 99364 Plavix medicatio n rash severe Not available 10/13/2018 96088 2 RxNorm Not Available Not Available Not [...] % 145 mm[Hg] 73 mm[Hg] Rosenda bower [employer] 1 11:13:36 Date Recorded Heart rate Respiratory rate Body temperature Oxygen saturation Oxygen saturation in Arterial blood by Pulse oximetry Systolic blood pressure Diastolic blood pressure Provider Name and Address Organization Details Last Updated DateTime 1 73 /min 18 /min 97.4 [degF] 93 % 93 % 129 mm[Hg] 89 mm[Hg] HERMINIA DENSON NP [address], [address], [place], [address], [employer] 14:20:11 Date Recorded Body temperature Oxygen saturation Oxygen saturation in Arterial blood by Pulse oximetry Heart rate Respiratory rate Systolic blood pressure Diastolic blood pressure Provider Name and Address Organization Details Last Updated DateTime 96.6 [degF] 97 % 97 % 89 /min 18 /min 124 mm[Hg] 81 mm[Hg] STACY Weber [address], [address], [place], [address], [facility] 1 11:12:09 Date Recorded Systolic blood pressure Diastolic blood pressure Provider Name and Address Organization Details Last Updated DateTime 05/10/2021 124 mm[Hg] 65 mm[Hg] Feliz Goznalez MD [address], [address], [place], [address], [employer] 05/10/2021 12:55:10 Date Recorded Systolic blood pressure Diastolic blood pressure Provider Name and Address Organization Details Last Updated DateTime 05/17/2021 104 mm[Hg] 74 mm[Hg] Feliz Gonzalez MD [address], [address], [place], [address], [employer] 05/17/2021 15:20:50 Social History Question Answer Notes LastModified by Organizat ion Details LastModified Time Tobacco Smoking Status Never Smoker Not Available [facility] 07/05/2020 03:13:23 Do You Have An Advance Directive? Yes FULL CODE/use Dialysis/unde cided About Nutrition/use Hydration Information not available 05/05/2021 What Is Your Level Of Alcohol Consumption? Occasional [id number] Information not available 07/05/2020 What Is Your Code Status? Full Code Information not available 05/05/2021 Legal Guardian? No Information not available 05/05/2021 Do You Have A Medical Power Of Apparel Sales Associate? Yes HCP On File Information not available 05/05/2021 Do You Feel Stressed (tense, Restless, Nervous, Or Anxious, Or Unable To Sleep At Night)? [id number] Information not available 05/05/2021 Has Tobacco Cessation [...] mcg/0.25mL dose 10/11/2020 completed STACY SULLIVAN [address], [address], [place], [address], [facility] [employer] 05/05/2021 11:09:25 COVID-19, mRNA, LNP-S, PF, 100 mcg/0.5mL dose or 50 mcg/0.25mL dose 11/08/2020 completed STACY SULLIVAN [address], [address], [place], [address], [facility] [employer] 05/05/2021 11:09:40 influenza, unspecified formulation 09/08/2018 completed Marah Wise [facility] 12/19/2018 15:12:21 Past Encounters Encounter ID Performer Location Encounter Start Date Encounter Closed Date Diagnosis/Indication Diagnosis SNOMED-CT Code Diagnosis ICD10 Code Diagnosis Note [id number] Feliz Gonzalez MD [address] [address] 10/10/2018 14:54:06 10/28/2018 16:15:02 Osteoarthritis of left knee joint 6674070465 81400 M17.12 end stage OA now s/p TKR leftfollow ortho recsPT OT eval and treatmonit or for pain control and constipati onmonitor and adjust coumadin for DVT prophylaxi sgiven sub-therap utic INR will add lovenox 40 mg sc qd till theraputic Essential hypertension 45760409 I10 metoprolol 25 mg qdmonitor bp Mixed hyperlipidemia 267 657196 E78.2 simvastati n 40 mg qdcontinue Unsteady gait 673848477 R26.81 PT OT eval and treat [id number] YOHAN KOLOSKI, TILE PROFESSIONAL [facility] [address] [place] [address] 10/13/2018 08:02:37 10/28/2018 16:16:29 Osteoarthritis of left knee joint 3450118344 05194 M17.12 follow ortho recsmonito r and adjust coumadinlo venox 40 mg sc qd till theraputic follow up with ortho and PCP Essential hypertension 54510953 I10 metoprolol 25 mg qdfollow up with PCP Mixed hyperlipidemia 267 289233 E78.2 simvastati n 40 mg qdfollow up with PCP Unsteady gait 053664373 R26.81 follow up with PCP Atrial fibrillation 4943 6004 I48.2 coumadin therapymon itor INRscontin ue lovenox til over 2follow up with cardiology and PCP [id number] STACY SULLIVAN [facility] [address] [place] [address] 05/05/2021 08:21:13 05/10/2021 15:30:51 Infective endocarditis 295780647 I33.0 nafcillin 2 gm IV q 4 hrs with stop date of 05/22/21pro biotic bidPICC line monitoring monitor labs Osteoarthritis 980263092 M15.0 tylenol 650 mg q 4 hrs prnmonitor pain Mixed hyperlipidemia 267 783280 E78.2 simvastati n 20 mg qdmonitor labs Essential hypertension 71297153 I10 metoprolol tartrate 25 mg bidlasix 20 mg qdklor con 20 meq qdmonitor b/p and labs Atrial fibrillation 4943 6004 I48.19 metoprolol tartrate 25 mg bidcoumadi n therapymon itor INRs History of cerebrovascular accident 734206990 Z86.73 metoprolol tartrate 25 mg bidcoumadi n therapyato rvastatin 20 mg qdmonitor Recurrent falls 92321267 2 R29.6 PT/OT eval and treatmonit or for safety Pressure ulcer 084341374 L89.90 multivitam in with mineralsvi tamin C 500 mg qdwound care as orderedmon itor frequently use pressure relief devices Deep venou s thrombosis of upper extremity 637282147 I82.621 coumadin therapymon itor INRs Multinodular goiter 2375 92386 E04.2 noted in historymon itor Hypomagnesemia 941582559 E83.42 magnesium 400 mg qdmonitor labs [id number] STACY SULLIVAN [facility] [address] [address] 05/08/2021 10:39:43 05/11/2021 08:35:04 Infective endocarditis 469833062 I33.0 nafcillin 2 gm IV q 4 hrs with stop date of 05/22/21pro biotic bidPICC line monitoring monitor labs Atrial fibrillation 4943 6004 I48.19 metoprolol tartrate 25 mg bidcoumadi n therapymon itor INRs Essential hypertension 66564063 I10 metoprolol tartrate 25 mg bidlasix 20 mg qdklor con 20 meq qdmonitor b/p and labs [id number] Feliz Gonzalez MD [facility] [address] [address] 05/10/2021 12:53:56 05/17/2021 15:11:21 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 see HPI and above Infective endocarditis 716806612 I33.0 see HPIcontinu ed on nafcillin 2 gm q 4 hours through 05/22add probioticm onitor cbcupdate ID with concerns Pressure ulcer 695627815 L89.90 see wound care notesconti nue treatment Deep venou s thrombosis of upper extremity 643417845 I82.621 RUE DVTlovenox now bridged to coumadinmo nitor INR and titrate dose Osteoarthritis 421755427 M15.0 known at baselinemo nitor for sx controltit rate meds prn Mixed hyperlipidemia 267 645347 E78.2 simvastati n 20 mg qdcontinue d Essential hypertension 20984831 I10 metoprolol 25 mg bidlasix 20 mg qdmonitor bp and need to titrate meds Atrial fibrillation 4943 6004 I48.19 carrying dxmetoprol ol 25 mg bidtitrate coumadin dosemonito r for rate control Recurrent falls 75507479 2 R29.6 PT OT eval and treatmonit or fall risk Asthenia 06407815 R53.1 highly motivated to gain strength and return home [id number] Rosenda Mcgill [facility] [address] [address] 05/11/2021 11:11:13 05/17/2021 15:26:07 Asthenia 96367571 R53.1 pt with fall this amfell from bed to floorno apparent injuriessa fety precaution sPT/OT eval and tx [id number] Feliz Gonzalez MD [facility] [address] [address] 05/17/2021 15:20:07 05/19/2021 15:47:47 Infective endocarditis 559308959 I33.0 nafcillin 2 gm q 4 hours through 05/22 to complete coursemoni tor cbcupdate ID with concernsgo al is discharge on 05/23 Bacterial arthritis 4824 5008 M00.88 see HPI and above Deep venou s thrombosis of upper extremity 047519462 I82.621 RUE DVTmonitor INR and titrate dose Asthenia 27469089 R53.1 improving with therapymov ing towards discharge [id number] HERMINIA DENSON NP [facility] [address] [address] 05/18/2021 14:18:12 05/22/2021 14:35:55 Infective endocarditis 631890213 I33.0 nafcillin 2 gm q 4 hours through 05/22 to complete coursemoni tor cbc - stableupda te ID with caroline al is discharge on 05/23Nsg. working on appt. for IV line removal Bacterial arthritis 4824 5008 M00.88 see HPI and above Deep venou s thrombosis of upper extremity 619373617 I82.621 RUE DVTmonitor INR and titrate dose Asthenia 62897859 R53.1 improving with therapymov ing towards discharge Atrial fibrillation 4943 6004 I48.19 [id number] STACY Weber [facility] [address] [address] 05/23/2021 11:10:46 05/25/2021 11:25:14 Infective endocarditis 202969600 I33.0 ok to dc home with meds and VNA services todayfinis hed nafcillin 2 gm q 4 hours through 05/22pt will not need to have central line flushed daily as [facility] this was [facility] by [facility] onal radiology department where he is having it removedf/u cardiologi st on 05/31f/u with pcp as out pt Bacterial arthritis 4824 5008 M00.88 as above Pressure ulcer 958371134 L89.90 will be followed by [facility]NA Deep venou s thrombosis of upper extremity 924095863 I82.621 RUE DVTcoumadi n therapeuti cwill have [facility]NA draw next PT/INR when he is admitted to their service with results sent to PCP Mixed hyperlipidemia 267 225460 E78.2 atorvastat in 20 mg qdf/u pcp Essential hypertension 77379317 I10 metoprolol 25 mg bidlasix 20 mg [...] Flores Member ID Guarantor Name 05/10/2021 1 [facility] - MEDICARE PREFERRED (MEDICARE REPLACEMENT HMO) ALLIE Vladimir Flynn [id number] Vladimir Flynn 05/11/2021 1 [facility] - MEDICARE PREFERRED (MEDICARE REPLACEMENT HMO) [facility] Vladimir Flynn [id number] Vladimir Flynn 05/17/2021 1 [facility] - MEDICARE PREFERRED (MEDICARE REPLACEMENT HMO) ALLIE Vladimir Flynn [id number] Vladimir Flynn 05/18/2021 1 [facility] - MEDICARE PREFERRED (MEDICARE REPLACEMENT HMO) MJ Flynn [id number] Vladimir Flynn 05/23/2021 1 [facility] - MEDICARE PREFERRED (MEDICARE REPLACEMENT HMO) ALLIE Vladimir Flynn [id number] Vladimir Flynn Notes Date Note Type Note [...] care and therapy Feliz Gonzalez MD [address], [address], [place], [address], [employer] 05/10/2021 13:19:34 05/11/2021 text/html Pt being seen [...] daily and recheck INR Saturday. Rosenda ferro, [facility] 05/11/2021 12:15:08 05/17/2021 text/html Patient is a 81 yo male resident seen for acute rounding. Completing Ab for endocarditis with potential discharge date of 05/23. Patient on coumadin for a fib with dose adjusted today. Strength and conditioning improving with therapy Feliz Gonzalez MD [address], [address], [place], [address], [employer] 05/17/2021 15:26:05 05/18/2021 text/html Vladimir is seen to day for an acute visit.Alert, pleasant, NAD. Uvaldo. abx. tx. well, goal home next tu. when IV abx. completed.Feels well, no c/o.Working with rehab - good progress. HERMINIA DENSON NP [address], [address], [place], [address], [facility] [employer] 05/18/2021 15:00:40 05/23/2021 text/html pt seen today fo r discharge summary. Patient presented to [facility] er from [place] (where he had been sent after 2 days in [facility] for rehab) with fever, hypotension and shaking [...] are resolving. was sent from there to [facility] for acute rehab. He [...] no concerns per nursing. STACY Weber [address], [address], [place], [address], [facility] [employer] 05/23/2021 12:09:56
--- OUTSIDE RECORDS SUMMARY | 2025-01-05 11:00 | XMS_ITS | Encounter Summary ---
Author Organization [facility] Address [address] [place] [address] Care Team Providers Care Nuts And Bolts Assembler Name Role Phone Octavio Gross MD Primary Care Provider Unavaila Kathie Cordova PA-C Primary Care Provider + Kirk Randle MD Primary Care Provider [phone] Ced Victoria MD Unavailable [phone] Virgie Trivedi NP Unavailable [phone] Kirk Randle MD Primary Care Provider [phone] Alana Celaya NP Unavailable [phone] Encounter Details Date Type Department Care Team Description 05/26/2019 Orders Only Internal Medicine - [address], [address] [place] [address] Octavio Gross MD Social History Tobacco Use [...] on filedocumented in this encounter Care Teams Nuts And Bolts Assembler Relationship Specialty Start Date End Date Octavio Gross MD PCP - General Internal Medicine 05/19/18 02/22/20 Kathie Le PA-C PCP - General Internal Medicine 02/23/20 07/11/20 Kirk Randle MD PCP - General Internal Medicine 07/12/20 06/04/21 Kirk Randle MD PCP - General Internal Medicine 06/05/21 Ced Victoria MD [address] [place] [address] [address] [place] [address] Medical Records Coder Cardiovascular Disease 04/05/21 Virgie Trivedi NP [address] [place] [address] [address] [place] [address] Nurse Practitioner Cardiology 04/05/21 Alana Celaya NP [address] [place] [address] [facility] [place], [place] [address] Nurse Practitioner Cardiology 07/17/23 documented as of this encounter
--- OUTSIDE RECORDS SUMMARY | 2025-01-05 11:00 | XMS_ITS | Encounter Summary ---
Author Organization [facility] Address [address] [place] [address] Care Team Providers Care Electric Solderer Name Role Phone Ced Victoria MD Unavailable [phone] Virgie Trivedi NP Unavailable [phone] Kirk Randle MD Primary Care Provider [phone] Alana Cealya NP Unavailable [phone] Encounter Details Date Type Department Care Team Description 09/07/2021 Orders Only Internal Medicine - [address], [address] [place] [address] Kirk Randle MD [address] [place], [place] [address] Social History Tobacco Use Types Packs/Day Years [...] on filedocumented in this encounter Care Teams Electric Solderer Relationship Specialty Start Date End Date Kirk Randle MD [address] [place] [address] [address] [place] [address] PCP - General Internal Medicine 06/05/21 Ced Victoria MD [address] [place] [address] [address] [place] [address] Fiber Drier Operator Cardiovascular Disease 04/05/21 Virgie Trivedi NP [address] [place] [address] [address] [place] [address] Nurse Practitioner Cardiology 04/05/21 Alana Celaya NP [address] [place] [address] [facility] [place] [address] Nurse Practitioner Cardiology 07/17/23 documented as of this encounter
--- OUTSIDE RECORDS SUMMARY | 2025-01-05 11:00 | XMS_ITS | Encounter Summary ---
Author Organization [facility] Address [address] [place] [address] Care Team Providers Care Aircraft Fuselage Framer Name Role Phone Ced Victoria MD Unavailable [phone] Virgie Trivedi NP Unavailable [phone] Kirk Randle MD Primary Care Provider [phone] Alana Celaya NP Unavailable [phone] Reason for Visit * Reason Onset Date Comments VNA Call 11/08/2023 Encounter Details Date Type Department Care Team Description 11/08/2023 Telephone Internal Medicine - [address], [address] [place], [place] [id number] Krik Randle MD [address] [place] [address] VNA Call Social History Tobacco Use Types [...] called and spoke with Vladimir about his [facility] appt, we rescheduled it to 01/10/24 @ [...] filedocumented in this encounter Care Teams Aircraft Fuselage Framer Relationship Specialty Start Date End Date Kirk Randle MD [address] [place] [address] [address] [place] [address] PCP - General Internal Medicine 06/05/21 Ced Victoria MD [address] [place] [address] [address] [place] [address] Final Coat Sprayer Cardiovascular Disease 04/05/21 Virgie Trivedi NP [address] [place] [address] [address] [place] [address] Nurse Practitioner Cardiology 04/05/21 Alana Celaya NP [address] [place] [address] [facility] [place] [address] Nurse Practitioner Cardiology 07/17/23 documented as of this encounter
--- OUTSIDE RECORDS SUMMARY | 2025-01-05 11:00 | XMS_ITS | Encounter Summary ---
Author Organization [facility] Address [address] [place] [address] Care Team Providers Care Voice And Data Technician Name Role Phone Ced Victoria MD Unavailable [phone] Virgie Trivedi NP Unavailable [phone] Kirk Randle MD Primary Care Provider [phone] Alana Celaya NP Unavailable [phone] Encounter Details Date Type Department Care Team Description 09/07/2021 Hospital Medical Records [address] [place] [address] [facility] Social History Tobacco Use Types Packs/Day Years [...] on filedocumented in this encounter Care Teams Voice And Data Technician Relationship Specialty Start Date End Date Kirk Randle MD [address] [place] [address] [address] [place] [address] PCP - General Internal Medicine 06/05/21 Ced Victoria MD [address] [place] [address] [address] [place] [address] Supervisor Jewelry Department Cardiovascular Disease 04/05/21 Virgie Trivedi NP [address] [place] [address] [address] [place] [address] Nurse Practitioner Cardiology 04/05/21 Alana Celaya NP [address] [place] [address] [facility] [place] [address] Nurse Practitioner Cardiology 07/17/23 documented as of this encounter
--- OUTSIDE RECORDS SUMMARY | 2025-01-05 11:00 | XMS_ITS | Encounter Summary ---
Author Organization [facility] Address [address] [place] [address] Care Team Providers Care Dewaterer Operator Name Role Phone Ced [place] MD Unavailable [phone] Virgie Trivedi NP Unavailable [phone] Kirk Randle MD Primary Care Provider [phone] Alana Celaya NP Unavailable [phone] Encounter Details Date Type Department Care Team Description 04/24/2024 Orders Only Internal Medicine - [address], [address] [place] [address] Kirk Randle MD [address] [place], [place] [id number] Social History Tobacco Use Types Packs/Day Years [...] on filedocumented in this encounter Care Teams Dewaterer Operator Relationship Specialty Start Date End Date Kirk Randle MD [address] [place] [address] [address] [place] [address] PCP - General Internal Medicine 06/05/21 Ced Victoria MD [address] [place] [address] [address] [place] [address] Sales Support Associate Cardiovascular Disease 04/05/21 Virgie Trivedi NP [address] [place] [address] [address] [place] [address] Nurse Practitioner Cardiology 04/05/21 Alana Celaya NP [address] [place] [address] [facility] [place], [place] [address] Nurse Practitioner Cardiology 07/17/23 documented as of this encounter
--- OUTSIDE RECORDS SUMMARY | 2025-01-05 11:01 | XMS_ITS | Encounter Summary ---
Author Organization [facility] Address [address] [place] [address] Care Team Providers Care Community Program Assistant Name Role Phone Ced Victoria MD Unavailable [phone] Virgie Trivedi NP Unavailable [phone] Kirk Randle MD Primary Care Provider [phone] Alana Celaya NP Unavailable [phone] Encounter Details Date Type Department Care Team Description 10/17/2021 Lollypop Machine Operator Report Medical Records [address] [place] [address] Abstract, Provider Social History Tobacco Use Types [...] filedocumented in this encounter Care Teams Community Program Assistant Relationship Specialty Start Date End Date Kirk Randle MD [address] [place] [address] [address] [place] [address] PCP - General Internal Medicine 06/05/21 Ced Victoria MD [address] [place] [address] [address] [place] [address] Retail Loan Officer Cardiovascular Disease 04/05/21 Virgie Trivedi NP [address] [place] [address] [address] [place] [address] Nurse Practitioner Cardiology 04/05/21 Alana Celaya NP [address] [place] [address] Dr [facility] [place] [address] Nurse Practitioner Cardiology 07/17/23 documented as of this encounter
--- OUTSIDE RECORDS SUMMARY | 2025-01-05 11:01 | XMS_ITS | Encounter Summary ---
Author Organization [facility] Address [address] [place] [address] Care Team Providers Care Peanut Grader Name Role Phone Ced Victoria MD Unavailable [phone] Virgie Trivedi NP Unavailable [phone] Kirk Randle MD Primary Care Provider [phone] Alana Celaya NP Unavailable [phone] Reason for Visit * Reason Onset Date Comments REFERRAL 06/03/2023 Encounter Details Date Type Department Care Team Description 06/03/2023 Telephone Vascular Surgery - [address] [address] Rosita Gardner MD [address] [address] REFERRAL Social History Tobacco Use [...] needs to start: 05/08/23 Jer Bradley Payor: [facility] / Plan: [place] HMO $10 [place] / Product Type: MEDICARE RISK documented in this encounter Plan of Treatment Not on file documented as of this encounter Visit Diagnoses Not on filedocumented in this encounter Care Teams Peanut Grader Relationship Specialty Start Date End Date Kirk Randle MD [address] [place] [address] [address] [place] [address] PCP - General Internal Medicine 06/05/21 Ced Victoria MD [address] [place] [address] [address] [place] [address] Nurse Prn Cardiovascular Disease 04/05/21 Virgie Trivedi NP [address] [place] [address] [address] [place] [address] Nurse Practitioner Cardiology 04/05/21 Alana Celaya NP [address] [place] [address] Dr [facility] [place] [address] Nurse Practitioner Cardiology 07/17/23 documented as of this encounter
--- OUTSIDE RECORDS SUMMARY | 2025-01-05 11:01 | XMS_ITS | Encounter Summary ---
Author Organization [facility] Address [address] [place] [address] Care Team Providers Care Store Specialist Name Role Phone Octavio Gross MD Primary Care Provider Unavaila Kathie Cordova PA-C Primary Care Provider + Kirk Randle MD Primary Care Provider [phone] Ced Victoria MD Unavailable [phone] Virgie Trivedi NP Unavailable [phone] Kirk Randle MD Primary Care Provider [phone] Alana Celaya NP Unavailable [phone] Encounter Details Date Type Department Care Team Description 06/17/2019 Orders Only Medical Records [address] [place] [address] Abstract, Provider Social History Tobacco Use Types [...] on filedocumented in this encounter Care Teams Store Specialist Relationship Specialty Start Date End Date Octavio Gross MD PCP - General Internal Medicine 05/19/18 02/22/20 Kathie Le PA-C PCP - General Internal Medicine 02/23/20 07/11/20 Kirk Randle MD PCP - General Internal Medicine 07/12/20 06/04/21 Kirk Randle MD PCP - General Internal Medicine 06/05/21 Ced Victoria MD [address] [place] [address] [address] [place] [address] Lawyer Real Estate Cardiovascular Disease 04/05/21 Virgie Trivedi NP [address] [place] [address] [address] [place], [place] [phone] Nurse Practitioner Cardiology 04/05/21 Alana Celaya NP [address] [place] [address] Dr [facility] [place] [place] [address] Nurse Practitioner Cardiology 07/17/23 documented as of this encounter
--- OUTSIDE RECORDS SUMMARY | 2025-01-05 11:01 | XMS_ITS | Encounter Summary ---
Author Organization [facility] Address [address] [place] [address] Care Team Providers Care Chocolate Molder Name Role Phone Octavio Gross MD Primary Care Provider Unavaila Kathie Cordova PA-C Primary Care Provider + Kirk Randle MD Primary Care Provider [phone] Ced Victoria MD Unavailable [phone] Virgie Trivedi NP Unavailable [phone] Kirk Randle MD Primary Care Provider [phone] Alana Celaya NP Unavailable [phone] Encounter Details Date Type Department Care Team Description 07/17/2018 Release of Information Medical Records [address] [place] [address] Abstract, Provider Social History Tobacco Use Types [...] on filedocumented in this encounter Care Teams Chocolate Molder Relationship Specialty Start Date End Date Octavio Gross MD PCP - General Internal Medicine 05/19/18 02/22/20 Kathie Le PA-C PCP - General Internal Medicine 02/23/20 07/11/20 Kirk Randle MD PCP - General Internal Medicine 07/12/20 06/04/21 Kirk Randle MD PCP - General Internal Medicine 06/05/21 Ced Victoria MD [address] [place] [address] [address] [place], [place] [phone] Paste Worker Cardiovascular Disease 04/05/21 Virgie Trivedi NP [address] [place] [address] [address] [place], [place] [address] Nurse Practitioner Cardiology 04/05/21 Alana Celaya NP [address] [place] [address] Dr [facility] [place], [place] [address] Nurse Practitioner Cardiology 07/17/23 documented as of this encounter
--- OUTSIDE RECORDS SUMMARY | 2025-01-05 11:01 | XMS_ITS | Encounter Summary ---
Author Organization [facility] Address [address] [place] [address] Care Team Providers Care Veneer Production Machine Operator Name Role Phone Ced Victoria MD Unavailable [phone] Virgie Trivedi NP Unavailable [phone] Kirk Randle MD Primary Care Provider [phone] Alana Celaya NP Unavailable [phone] Encounter Details Date Type Department Care Team Description 12/01/2021 Orders Only Internal Medicine - [address], [address] [place] [address] Kirk Randle MD [address] [place], [place] [id number] Social History Tobacco Use Types Packs/Day Years [...] on filedocumented in this encounter Care Teams Veneer Production Machine Operator Relationship Specialty Start Date End Date Kirk Randle MD [address] [place] [address] [address] [place] [address] PCP - General Internal Medicine 06/05/21 Ced Victoria MD [address] [place] [address] [address] [place] [address] Technical Testing Engineer Cardiovascular Disease 04/05/21 Virgie Trivedi NP [address] [place] [address] [address] [place] [address] Nurse Practitioner Cardiology 04/05/21 Alana Celaya NP [address] [place] [address] Dr [facility] [place] [address] Nurse Practitioner Cardiology 07/17/23 documented as of this encounter
--- OUTSIDE RECORDS SUMMARY | 2025-01-05 11:01 | XMS_ITS | Encounter Summary ---
Author Organization [facility] Address [address] [place] [address] Care Team Providers Care Commissioning Manager Name Role Phone Ced Victoria MD Unavailable [phone] Virgie Trivedi NP Unavailable [phone] Kirk Randle MD Primary Care Provider [phone] Alana Celaya NP Unavailable [phone] Encounter Details Date Type Department Care Team Description 10/19/2022 Mixer Operator Hot Metal Report Medical Records [address] [place] [address] Social History Tobacco Use Types Packs/Day Years [...] on filedocumented in this encounter Care Teams Commissioning Manager Relationship Specialty Start Date End Date Kirk Randle MD [address] [place] [address] [address] [place] [address] PCP - General Internal Medicine 06/05/21 Ced Victoria MD [address] [place] [address] [address] [place] [address] Bilingual Trainer Cardiovascular Disease 04/05/21 Virgie Trivedi NP [address] [place] [address] [address] [place] [address] Nurse Practitioner Cardiology 04/05/21 Alana Celaya NP [address] [place] [address] Dr [facility] [place] [address] Nurse Practitioner Cardiology 07/17/23 documented as of this encounter
--- OUTSIDE RECORDS SUMMARY | 2025-01-05 11:01 | XMS_ITS | Encounter Summary ---
Author Organization [facility] Address [address] [place] [address] Care Team Providers Care Red Mud Thickener Operator Name Role Phone Ced Victoria MD Unavailable [phone] Virgie Trivedi NP Unavailable [phone] Kirk Randle MD Primary Care Provider [phone] Alana Celaya NP Unavailable [phone] Encounter Details Date Type Department Care Team Description 05/10/2023 Crime Scene Photographer Report Medical Records [address] [place] [address] Abstract, Provider Social History Tobacco Use Types [...] on filedocumented in this encounter Care Teams Red Mud Thickener Operator Relationship Specialty Start Date End Date Kirk Randle MD [address] [place] [address] [address] [place] [address] PCP - General Internal Medicine 06/05/21 Ced Victoria MD [address] [place] [address] [address] [place] [address] Night Assistant Cardiovascular Disease 04/05/21 Virgie Trivedi NP [address] [place] [address] [address] [place] [address] Nurse Practitioner Cardiology 04/05/21 Alana Celaya NP [address] [place] [address] Dr [facility] [place] [address] Nurse Practitioner Cardiology 07/17/23 documented as of this encounter
--- OUTSIDE RECORDS SUMMARY | 2025-01-05 11:01 | XMS_ITS | Encounter Summary ---
Author Organization [facility] Address [address] [place] [address] Care Team Providers Care Assistant Administrator Name Role Phone Octavio Gross MD Primary Care Provider Unavaila Kathie Cordova PA-C Primary Care Provider + Kirk Randle MD Primary Care Provider [phone] Ced Victoria MD Unavailable [phone] Virgie Trivedi NP Unavailable [phone] Kirk Randle MD Primary Care Provider [phone] Alana Celaya NP Unavailable [phone] Encounter Details Date Type Department Care Team Description 09/16/2019 Release of Information Medical Records [address] [place] [address] Abstract, Provider Social History Tobacco Use Types [...] on filedocumented in this encounter Care Teams Assistant Administrator Relationship Specialty Start Date End Date Octavio Gross MD PCP - General Internal Medicine 05/19/18 02/22/20 Kathie Le PA-C PCP - General Internal Medicine 02/23/20 07/11/20 Kirk Randle MD PCP - General Internal Medicine 07/12/20 06/04/21 Kirk Randle MD PCP - General Internal Medicine 06/05/21 Ced Victoria MD [address] [place] [address] [address] [place], [place] [phone] Heating And Ventilating Tender Cardiovascular Disease 04/05/21 Virgie Trivedi NP [address] [place] [address] [address] [place], [place] [phone] Nurse Practitioner Cardiology 04/05/21 Alana Celaya NP [address] [place] [address] [facility] [place], [place] [phone] Nurse Practitioner Cardiology 07/17/23 documented as of this encounter
--- OUTSIDE RECORDS SUMMARY | 2025-01-05 11:01 | XMS_ITS | Encounter Summary ---
Author Organization [facility] Address [address] [place] [address] Care Team Providers Care Port Steward Name Role Phone Octavio Gross MD Primary Care Provider Unavaila Kathie Cordova PA-C Primary Care Provider + Kirk Randle MD Primary Care Provider [phone] Ced Victoria MD Unavailable [phone] Virgie Trivedi NP Unavailable [phone] Kirk Randle MD Primary Care Provider [phone] Alana Celaya NP Unavailable [phone] Reason for Visit * Reason Comments E-prescribe Rx Request Encounter Details Date Type Department Care Team Description 10/08/[facility] - [address], [address] [place] [address] Octavio Gross MD E-prescribe Rx Request Social [...] N/A Patients current insurance carrier is: Payor: [facility] / Plan: [place] PREF HMO $10 [place] / Product Type: MEDICARE RISK documented in this encounter Plan of Treatment Not on file documented as of this encounter Visit Diagnoses Not on filedocumented in this encounter Care Teams [place] Relationship Specialty Start Date End Date Octavio Gross MD PCP - General Internal Medicine 05/19/18 02/22/20 Kathie Le PA-C PCP - General Internal Medicine 02/23/20 07/11/20 Kirk Randle MD PCP - General Internal Medicine 07/12/20 06/04/21 Kirk Randle MD PCP - General Internal Medicine 06/05/21 Ced Victoria MD [address] [place] [address] [address] [place] [address] Stone Grader Cardiovascular Disease 04/05/21 Virgie Trivedi NP [address] [place] [address] [address] [place] [address] Nurse Practitioner Cardiology 04/05/21 Alana Celaya NP [address] [place] [address] [facility] [place] [address] Nurse Practitioner Cardiology 07/17/23 documented as of this encounter
--- OUTSIDE RECORDS SUMMARY | 2025-01-05 11:01 | XMS_ITS | Encounter Summary ---
Author Organization [facility] Address [address] [place] [address] Care Team Providers Care Title One Teacher Name Role Phone Octavio Gross MD Primary Care Provider Unavaila Kathie Cordova PA-C Primary Care Provider + Kirk Randle MD Primary Care Provider [phone] Ced Victoria MD Unavailable [phone] Virgie Trivedi NP Unavailable [phone] Kirk Randle MD Primary Care Provider [phone] Alana Celaya NP Unavailable [phone] Encounter Details Date Type Department Care Team Description 06/23/2019 Mover Helper Report Medical Records [address] [place] [address] [facility] Social History Tobacco Use Types [...] on filedocumented in this encounter Care Teams Title One Teacher Relationship Specialty Start Date End Date Octavio Gross MD PCP - General Internal Medicine 05/19/18 02/22/20 Kathie Le PA-C PCP - General Internal Medicine 02/23/20 07/11/20 Kirk Randle MD PCP - General Internal Medicine 07/12/20 06/04/21 Kirk Randle MD PCP - General Internal Medicine 06/05/21 Ced Victoria MD [address] [place] [address] [address] [place], [place] [phone] Panel Cutter Cardiovascular Disease 04/05/21 Virgie Trivedi NP [address] [place] [address] [address] [place], [place] [phone] Nurse Practitioner Cardiology 04/05/21 Alana Celaya NP [address] [place] [address] [facility] [place] [address] Nurse Practitioner Cardiology 07/17/23 documented as of this encounter
--- OUTSIDE RECORDS SUMMARY | 2025-01-05 11:01 | XMS_ITS | Encounter Summary ---
Author Organization [facility] Address [address] [place] [address] Care Team Providers Care Fisheries Enforcement Officer Name Role Phone Ced Victoria MD Unavailable [phone] Virgie Trivedi NP Unavailable [phone] Kirk Rnadle MD Primary Care Provider [phone] Alana Celaya NP Unavailable [phone] Reason for Visit * Reason Onset Date Comments REFERRAL 11/06/2021 Encounter Details Date Type Department Care Team Description 11/06/2021 Telephone Vascular Surgery - [address] [address] Tyrese Gardner MD [address] [address] REFERRAL Social History Tobacco Use [...] referral needs to start: Jer Bradley Payor: [facility] / Plan: [place] PREF HMO $10 [place] / Product Type: MEDICARE RISK documented in this encounter Plan of Treatment Not on file documented as of this encounter Visit Diagnoses Not on filedocumented in this encounter Care Teams Fisheries Enforcement Officer Relationship Specialty Start Date End Date Kirk Randle MD [address] [place] [address] [address] [place] [address] PCP - General Internal Medicine 06/05/21 Ced Victoria MD [address] [place] [address] [address] [place] [address] Front Office Associate Cardiovascular Disease 04/05/21 Virgie Trivedi NP [address] [place] [address] [address] [place] [address] Nurse Practitioner Cardiology 04/05/21 Alana Celaya NP [address] [place] [address] Dr [facility] [place] [address] Nurse Practitioner Cardiology 07/17/23 documented as of this encounter
--- OUTSIDE RECORDS SUMMARY | 2025-01-05 11:01 | XMS_ITS | Encounter Summary ---
Author Organization [facility] Address [address] [place] [address] Care Team Providers Care Polymer Chemist Name Role Phone Ced Victoria MD Unavailable [phone] Virgie Trivedi NP Unavailable [phone] Kirk Randle MD Primary Care Provider [phone] Alana Celaya NP Unavailable [phone] Encounter Details Date Type Department Care Team Description 08/21/2021 Veneer Department Manager Report Medical Records [address] [place] [id number] [place] [address] Social History Tobacco Use Types Packs/Day Years [...] on filedocumented in this encounter Care Teams Polymer Chemist Relationship Specialty Start Date End Date Kirk Randle MD [address] [place] [address] [address] [place] [address] PCP - General Internal Medicine 06/05/21 Ced Victoria MD [address] [place] [address] [address] [place] [address] Christmas Tree Grader Cardiovascular Disease 04/05/21 Virgie Trivedi NP [address] [place] [address] [address] [place], [place] [phone] Nurse Practitioner Cardiology 04/05/21 Alana Celaya NP [address] [place] [address] Dr [facility] [place] [address] Nurse Practitioner Cardiology 07/17/23 documented as of this encounter
--- OUTSIDE RECORDS SUMMARY | 2025-01-05 11:01 | XMS_ITS | Encounter Summary ---
Author Organization [facility] Address [address] [place] [address] Care Team Providers Care Sheetmetal Worker Name Role Phone Ced Victoria MD Unavailable [phone] Virgie Trivedi NP Unavailable [phone] Kirk Randle MD Primary Care Provider [phone] Alana Celaya NP Unavailable [phone] Encounter Details Date Type Department Care Team Description 12/04/2021 Gasfitter Report Medical Records [address] [place] [id number] [place] [address] Social History Tobacco Use Types Packs/Day Years [...] on filedocumented in this encounter Care Teams Sheetmetal Worker Relationship Specialty Start Date End Date Kirk Randle MD [address] [place] [address] [address] [place] [address] PCP - General Internal Medicine 06/05/21 Ced Victoria MD [address] [place] [address] [address] [place] [address] Paving Inspector Cardiovascular Disease 04/05/21 Virgie Trivedi NP [address] [place] [address] [address] [place] [address] Nurse Practitioner Cardiology 04/05/21 Alana Celaya NP [address] [place] [address] [facility] [place] [address] Nurse Practitioner Cardiology 07/17/23 documented as of this encounter
--- OUTSIDE RECORDS SUMMARY | 2025-01-05 11:01 | XMS_ITS | Encounter Summary ---
Author Organization [facility] Address [address] [place] [address] Care Team Providers Care Music Sound Light Technician Name Role Phone Ced Victoria MD Unavailable [phone] Virgie Trivedi NP Unavailable [phone] Kirk Randle MD Primary Care Provider [phone] Alana Celaya NP Unavailable [phone] Encounter Details Date Type Department Care Team Description 04/29/2023 Orders Only Medical Records [address] [place] [address] Abstract, Provider Social History Tobacco Use Types [...] on filedocumented in this encounter Care Teams Music Sound Light Technician Relationship Specialty Start Date End Date Kirk Randle MD [address] [place] [address] [address] [place] [address] PCP - General Internal Medicine 06/05/21 Ced Victoria MD [address] [place] [address] [address] [place] [address] Concrete Conveyor Operator Cardiovascular Disease 04/05/21 Virgie Trivedi NP [address] [place] [address] [address]IVE [address] [place] [address] Nurse Practitioner Cardiology 04/05/21 Alana Celaya NP [address] [place] [address] [facility] [place] [address] Nurse Practitioner Cardiology 07/17/23 documented as of this encounter
--- OUTSIDE RECORDS SUMMARY | 2025-01-05 11:01 | XMS_ITS | Encounter Summary ---
Author Organization [facility] Address [address] [place] [address] Care Team Providers Care Executive Officer Special Warfare Team Name Role Phone Joseph Gross MD Primary Care Provider Unavaila Kathie [place] PA-C Primary Care Provider + Kirk Randle MD Primary Care Provider [phone] Ced Victoria MD Unavailable [phone] Virgie Trivedi NP Unavailable [phone] Kirk Randle MD Primary Care Provider [phone] Alana Celaya NP Unavailable [phone] Reason for Visit * Reason Onset Date Comments Pay Per Click Strategist Feedback 07/18/2018 Dr Boy Romero Encounter Details Date Type Department Care Team Description 07/18/2018 Telephone Internal Medicine - [address], [address] [place] [address] Joseph Gross MD Pay Per Click Strategist Feedback (Dr Brunson Instrjames) Social History Tobacco [...] Rosenda Misael - 07/18/2018 12:24 PM EST [facility] Trace #: [id number] Subscriber: VLADIMIR FLYNN Submitter : JOSEPH GROSS Submitter Type: Provider : 1940 Referral (#[id number]) Specialty Care Review Type: Initial Certification Status : Certified in total Service Type : Medical Care Place Of Service : Office Visits : 6 Service Date : 07/18/2018-07/18/2019 Service Providers Provider Name ID Provider Type DUTCH CAZARES NPI : [id number] Service Provider * Telephone Encounter - Carolina Martinez - 07/18/2018 11:21 AM EST What insurance does the patient have today? [facility] Effective 06/09/09: BS will not retro referral [...] insurance must be obtained and registered in [facility] or their referral can not [...] this specialty: Patient saw Dr Gross at [facility] for the problem and was told if [...] Is this visit:Follow Up Address of Specialist: [address] [place] [address], [address], [facility] [address] Phone # of Specialist: [phone] Fax #: (if applicable): [phone] Does patient have an appointment scheduled?: YES Date of appointment- (including a retro-request): 08/05/18 @ 9:45am Is this appointment related to: Not MVA, WC or Surgery related documented in this encounter Plan of Treatment Not on file documented as of this encounter Visit Diagnoses Not on filedocumented in this encounter Care Teams Executive Officer Special Warfare Team Relationship Specialty Start Date End Date Joseph Gross MD PCP - General Internal Medicine 05/19/18 02/22/20 Kathie Le PA-C PCP - General Internal Medicine 02/23/20 07/11/20 Kirk Randle MD PCP - General Internal Medicine 07/12/20 06/04/21 Kirk Randle MD PCP - General Internal Medicine 06/05/21 Ced Victoria MD [address] [place] [address] [address] [place] [address] Paste Mixing Supervisor Cardiovascular Disease 04/05/21 Virgie Trivedi NP [address] [place] [address] [address] [place] [address] Nurse Practitioner Cardiology 04/05/21 Alana Celaya NP [address] [place] [address] [facility] [place] [address] Nurse Practitioner Cardiology 07/17/23 documented as of this encounter
--- OUTSIDE RECORDS SUMMARY | 2025-01-05 11:01 | XMS_ITS | Encounter Summary ---
Author Organization [facility] Address [address] [place] [address] Care Team Providers Care Direct Support Professional Caregiver Name Role Phone Ced Victoria MD Unavailable [phone] Virgie Trivedi NP Unavailable [phone] Kirk Randle MD Primary Care Provider [phone] Alana Celaya NP Unavailable [phone] Encounter Details Date Type Department Care Team Description 05/29/2023 Home Health Certification Medical Records [address] [place] [address] Social History Tobacco Use Types Packs/Day Years [...] on filedocumented in this encounter Care Teams Direct Support Professional Caregiver Relationship Specialty Start Date End Date Kirk Randle MD [address] [place] [address] [address] [place] [address] PCP - General Internal Medicine 06/05/21 Ced Victoria MD [address] [place] [address] [address] [place] [address] Radio Maintainer Cardiovascular Disease 04/05/21 Virgie Trivedi NP [address] [place] [address] [address] [place] [address] Nurse Practitioner Cardiology 04/05/21 Alana Celaya NP [address] [place] [address] [facility] [place] [address] Nurse Practitioner Cardiology 07/17/23 documented as of this encounter
--- OUTSIDE RECORDS SUMMARY | 2025-01-05 11:01 | XMS_ITS | Encounter Summary ---
Author Organization [facility] Address [address] [place] [address] Care Team Providers Care Builder Beam Name Role Phone Octavio Gross MD Primary Care Provider Unavaila Kathie [place] PA-C Primary Care Provider + Kirk Randle MD Primary Care Provider [phone] Ced Victoria MD Unavailable [phone] Virgie Trivedi NP Unavailable [phone] Kirk Randle MD Primary Care Provider [phone] Alana Celaya NP Unavailable [phone] Encounter Details Date Type Department Care Team Description 07/16/2018 Transfer Records Medical Records [address] [place] [address] Abstract, Provider Social History Tobacco Use Types [...] on filedocumented in this encounter Care Teams Builder Beam Relationship Specialty Start Date End Date Octavio Gross MD PCP - General Internal Medicine 05/19/18 02/22/20 Kathie Le PA-C PCP - General Internal Medicine 02/23/20 07/11/20 Kirk Randle MD PCP - General Internal Medicine 07/12/20 06/04/21 Kirk Randle MD PCP - General Internal Medicine 06/05/21 Ced Victoria MD [address] [place] [address] [address] [place] [address] Managed Care Liaison Cardiovascular Disease 04/05/21 Virgie Trivedi NP [address] [place] [address] [address] [place] [address] Nurse Practitioner Cardiology 04/05/21 Alana Celaya NP [address] [place] [address] Dr [facility] [place], [place] [address] Nurse Practitioner Cardiology 07/17/23 documented as of this encounter
--- OUTSIDE RECORDS SUMMARY | 2025-01-05 11:01 | XMS_ITS | Encounter Summary ---
Author Organization [facility] Address [address] [place] [address] Care Team Providers Care Range Examiner Name Role Phone Ced Victoria MD Unavailable [phone] Virgie Trivedi NP Unavailable [phone] Kirk Randle MD Primary Care Provider [phone] Alana Celaya NP Unavailable [phone] Encounter Details Date Type Department Care Team Description 08/16/2021 Head Mva Reactor Operator Report Medical Records [address] [place] [address] Ileana Renee MD Social History Tobacco Use [...] on filedocumented in this encounter Care Teams Range Examiner Relationship Specialty Start Date End Date Kirk Randle MD [address] [place] [address] [address] [place] [address] PCP - General Internal Medicine 06/05/21 Ced Victoria MD [address] [place] [address] [address] [place] [address] Maintenance Engineer Cardiovascular Disease 04/05/21 Virgie Trivedi NP [address] [place] [address] [address] [place] [address] Nurse Practitioner Cardiology 04/05/21 Alana Celaya NP [address] [place] [address] [facility] [place] [address] Nurse Practitioner Cardiology 07/17/23 documented as of this encounter
--- OUTSIDE RECORDS SUMMARY | 2025-01-05 11:01 | XMS_ITS | Encounter Summary ---
Author Organization [facility] Address [address] [place] [address] Care Team Providers Care Commercial Development Manager Name Role Phone Ocatvio Gross MD Primary Care Provider Unavaila Kathie [place] PA-C Primary Care Provider + Kirk Randle MD Primary Care Provider [phone] Ced Victoria MD Unavailable [phone] Virgie Trivedi NP Unavailable [phone] Kirk Randle MD Primary Care Provider [phone] Alana Celaya NP Unavailable [phone] Encounter Details Date Type Department Care Team Description 10/13/2018 Hospital Medical Records [address] [place] [id number] [place] [address] Social History Tobacco Use Types Packs/Day Years [...] on filedocumented in this encounter Care Teams Commercial Development Manager Relationship Specialty Start Date End Date Octavio Gross MD PCP - General Internal Medicine 05/19/18 02/22/20 Kathie Le PA-C PCP - General Internal Medicine 02/23/20 07/11/20 Kirk Randle MD PCP - General Internal Medicine 07/12/20 06/04/21 Kirk Randle MD PCP - General Internal Medicine 06/05/21 Ced Victoria MD [address] [place] [address] [address] [place] [address] Plastics Tooling Engineer Cardiovascular Disease 04/05/21 Virgie Trivedi NP [address] [place] [address] [address] [place], [place] [address] Nurse Practitioner Cardiology 04/05/21 Alana Celaya NP [address] [place] [address] Dr [facility] [place], [place] [address] Nurse Practitioner Cardiology 07/17/23 documented as of this encounter
--- OUTSIDE RECORDS SUMMARY | 2025-01-05 11:01 | XMS_ITS | Encounter Summary ---
Author Organization [facility] Address [address] [place] [address] Care Team Providers Care Pricing Director Name Role Phone Ced Victoria MD Unavailable [phone] Virgie Trivedi NP Unavailable [phone] Kirk Randle MD Primary Care Provider [phone] Alana Celaya NP Unavailable [phone] Encounter Details Date Type Department Care Team Description 08/07/2021 Grocery Packer Report Medical Records [address] [place] [id number] [place] [address] Social History Tobacco Use Types Packs/Day Years [...] on filedocumented in this encounter Care Teams Pricing Director Relationship Specialty Start Date End Date Kirk Randle MD [address] [place] [address] [address] [place] [address] PCP - General Internal Medicine 06/05/21 Ced Victoria MD [address] [place] [address] [address] [place] [address] Campus Coordinator Cardiovascular Disease 04/05/21 Virgie Trivedi NP [address] [place] [address] [address] [place] [address] Nurse Practitioner Cardiology 04/05/21 Alana Celaya NP [address] [place] [address] [facility] [place] [address] Nurse Practitioner Cardiology 07/17/23 documented as of this encounter
--- OUTSIDE RECORDS SUMMARY | 2025-01-05 11:01 | XMS_ITS | Encounter Summary ---
Author Organization [facility] Address [address] [place] [address] Care Team Providers Care Grain Unloader Machine Name Role Phone Ced Victoria MD Unavailable [phone] Virgie Trivedi NP Unavailable [phone] Kirk Randle MD Primary Care Provider [phone] Alana Celaya NP Unavailable [phone] Encounter Details Date Type Department Care Team Description 11/27/2021 Commercial Front Load Operator Report Medical Records [address] [place] [id number] [place] [address] Social History Tobacco Use Types Packs/Day Years [...] on filedocumented in this encounter Care Teams Grain Unloader Machine Relationship Specialty Start Date End Date Kirk Randle MD [address] [place] [address] [address] [place] [address] PCP - General Internal Medicine 06/05/21 Ced Victoria MD [address] [place] [address] [address] [place] [address] Grinder Carbon Plant Cardiovascular Disease 04/05/21 Virgie Trivedi NP [address] [place] [address] [address] [place] [address] Nurse Practitioner Cardiology 04/05/21 Alana Celaya NP [address] [place] [address] [facility] [place] [address] Nurse Practitioner Cardiology 07/17/23 documented as of this encounter
--- OUTSIDE RECORDS SUMMARY | 2025-01-05 11:01 | XMS_ITS | Encounter Summary ---
Author Organization [facility] Address [address] [place] [address] Care Team Providers Care Sponge Hooker Name Role Phone Ced Victoria MD Unavailable [phone] Virgie Trivedi NP Unavailable [phone] Kirk Randle MD Primary Care Provider [phone] Alana Celaya NP Unavailable [phone] Encounter Details Date Type Department Care Team Description 05/17/2023 Orders Only Internal Medicine - [address], [address] [place] [address] Kirk Randle MD [address] [place], [place] [id number] Preoperative examination; Screening for deficiency anemia Social History Tobacco Use Types Packs/Day Years [...] on file documented as of this encounter Results * CHG BASIC METABOLIC PANEL CALCIUM TOTAL (05/23/2023 10:01 AM EDT) Pathologist [facility] GLUCOSE 91 70 - 100 mg/dL 05/23/2023 3:14 PM EDT [facility] Comment:Reference range appl icable to fasting specimens only Blood Urea Nitrogen 23 5 - 25 mg/dL 05/23/2023 3:14 PM EDT [facility] CREAT 1.20 0.7 - 1.3 mg/dL 05/23/2023 3:14 PM EDT [facility] GLOMERULAR FILTRATION RATE 61 >60 05/23/2023 3:14 PM EDT [facility] Comment: This eGFR result was calculated using the CKD-EPI 2020 Creatinine Equation NA 144 135 - 145 mEq/L 05/23/2023 3:14 PM EDT [facility] K 4.1 3.5 - 5.5 mmol/L 05/23/2023 3:14 PM EDT [facility] CL 110 96 - 110 mmol/L 05/23/2023 3:14 PM EDT [facility] CARBON DIOXIDE (CO2) 30 21 - 32 mmol/L 05/23/2023 3:14 PM EDT [facility] ANION GAP 4 3 - 11 05/23/2023 3:14 PM EDT [facility] CALCIUM 9.4 8.5 - 10.5 mg/dL 05/23/2023 3:14 PM EDT [facility] 05/23/2023 10:0 1 AM EDT 05/23/2023 10:02 AM EDT Narrative [facility] - 05/23/2023 3:14 PM EDT Release to patient->Immediate Kirk Randle MD LAB [facility] * (ABNORMAL) CHG BLOOD COUNT COMPLETE AUTO&AUTO DIFRNTL WBC (05/23/2023 10:01 AM EDT) [facility] WHITE BLOOD COUNT 8.7 4.8 - 10.8 x10-3/uL 05/23/2023 2:37 PM EDT [facility] RED BLOOD COUNT 5.2 4.5 - 5.5 x10-6/uL 05/23/2023 2:37 PM EDT [facility] Hemoglobin 16.6 13.5 - 17.5 g/dL 05/23/2023 2:37 PM EDT [facility] Hematocrit 49.6 42 - 54 % 05/23/2023 2:37 PM EDT [facility] MEAN CORPUSCULAR VOLUME 94.8 79 - 98 fL 05/23/2023 2:37 PM EDT [facility] HEMOGLOBIN 31.7 27 - 32 pg 05/23/2023 2:37 PM EDT [facility]PUS[facility] HGB CONC 33.5 32 - 37 g/dL 05/23/2023 2:37 PM EDT [facility] RED CELL DISTRIBUTION WIDTH 13.9 11 - 15 % 05/23/2023 2:37 PM EDT [facility] PLT COUNT 223 130 - 400 x10-3/uL 05/23/2023 2:37 PM EDT [facility] MEAN PLATELET VOLUME 11.7(H) 7 - 11 fL 05/23/2023 2:37 PM EDT [facility] NRBC % AUTO 0.0 <1 % 05/23/2023 2:37 PM EDT [facility] NEUTROPHILS % 66.0 % 05/23/2023 2:37 PM EDT [facility] LYMPH % 23.9 % 05/23/2023 2:37 PM EDT [facility] MONO % 7.9 % 05/23/2023 2:37 PM EDT [facility] EOS % 1.3 % 05/23/2023 2:37 PM EDT [facility] BASO % 0.6 % 05/23/2023 2:37 PM EDT [facility] IMMATURE GRANULOCYTES % 0.3 % 05/23/2023 2:37 PM EDT [facility] NRBC # AUTO 0.00 <0.1 x10-3/uL 05/23/2023 2:37 PM EDT [facility] NEUT # 5.75 1.5 - 7.0 x10-3/uL 05/23/2023 2:37 PM EDT [facility] LYMPH # 2.08 1 - 5.0 x10-3/uL 05/23/2023 2:37 PM EDT [facility] MONO # 0.69 0.2 - 1.0 x10-3/uL 05/23/2023 2:37 PM EDT [facility] EOS # 0.11 0 - 0.5 x10-3/uL 05/23/2023 2:37 PM EDT [facility] BASO # 0.05 0 - 0.2 x10-3/uL 05/23/2023 2:37 PM EDT [facility] IMMATURE GRANULOCYTES # 0.03 0 - 0.03 x10-3/uL 05/23/2023 2:37 PM EDT [facility] 05/23/2023 10:0 1 AM EDT 05/23/2023 10:02 AM EDT Narrative [facility] - 05/23/2023 2:37 PM EDT Release to patient->Immediate Kirk Randle MD LAB [facility] documented in this encounter Visit Diagnoses Diagnosis Preoperative examination Preoperative examination, unspecified Screening for deficiency anemia Screening for other and unspecified deficiency anemia Preoperative examination Preoperative examination, unspecified Screening for deficiency anemia Screening for other and unspecified deficiency anemia documented in this encounter Care Teams Sponge Hooker Relationship Specialty Start Date End Date Kirk Randle MD [address] [place] [address] [address] [place] [address] PCP - General Internal Medicine 06/05/21 Ced Victoria MD [address] [place] [address] [address] [place] [address] Enrollment Clerk Cardiovascular Disease 04/05/21 Virgie Trivedi NP [address] [place] [address] [address] [place] [address] Nurse Practitioner Cardiology 04/05/21 Alana Celaya NP [address] [place] [address] [facility] [place] [address] Nurse Practitioner Cardiology 07/17/23 documented as of this encounter
--- OUTSIDE RECORDS SUMMARY | 2025-01-05 11:01 | XMS_ITS | Encounter Summary ---
Author Organization [facility] Address [address] [place] [address] Care Team Providers Care Cash Controller Name Role Phone Octavio Gross MD Primary Care Provider Unavaila Kathie Cordova PA-C Primary Care Provider + Kirk Randle MD Primary Care Provider [phone] Ced Victoria MD Unavailable [phone] Virgie Trivedi NP Unavailable [phone] Kirk Randle MD Primary Care Provider [phone] Alana Celaya NP Unavailable [phone] Encounter Details Date Type Department Care Team Description 10/06/2018 [facility] Medical Records [address] [place] [address] Rhys Wynn Social History Tobacco Use Types [...] on filedocumented in this encounter Care Teams Cash Controller Relationship Specialty Start Date End Date Octavio Gross MD PCP - General Internal Medicine 05/19/18 02/22/20 Kathie Le PA-C PCP - General Internal Medicine 02/23/20 07/11/20 Kirk Randle MD PCP - General Internal Medicine 07/12/20 06/04/21 Kirk Randle MD PCP - General Internal Medicine 06/05/21 Ced Victoria MD [address] [place] [address] [address] [place] [address] Veterinarian Cardiovascular Disease 04/05/21 Virgie Trivedi NP [address] [place] [address] [address] [place] [address] Nurse Practitioner Cardiology 04/05/21 Alana Celaya NP [address] [place] [address] [facility] [place] [address] Nurse Practitioner Cardiology 07/17/23 documented as of this encounter
--- OUTSIDE RECORDS SUMMARY | 2025-01-05 11:01 | XMS_ITS | Encounter Summary ---
Author Organization [facility] Address [address] [place] [address] Care Team Providers Care Flooring Machine Operator Name Role Phone Ced Victoria MD Unavailable [phone] Virgie Trivedi NP Unavailable [phone] Kirk Randle MD Primary Care Provider [phone] Alana Celaya NP Unavailable [phone] Reason for Visit * Reason Onset Date Comments Head Pastry Chef Feedback 08/22/2021 NILAM FOX Encounter Details Date Type Department Care Team Description 08/22/2021 Telephone Internal Medicine - [address], [address] [place], [place] [phone] Kirk Randle MD [address] [place] [address] Head Pastry Chef Feedback (NILAM FOX) Social History Tobacco Use [...] Judi Edmond - 08/22/2021 4:04 PM EST [facility] Review Request Submission Status[ Save Response to Batch ] Request: OxposrRD=[id number] KuizhlnvAT=[id number] [facility] Trace #: [id number] Subscriber: VLADIMIR FLYNN : 1940 Submitter : KIRK RANDLE Submitter Type: Provider Referral (#[id number]) Specialty Care Review Type: Initial Certification Status : Certified in total Service Type : Medical Care Place Of Service : Office Visit : 1 Service Date : 08/28/2021-08/28/2022 Service Providers Provider Name ID Provider Type NILAM FOX NPI : [id number] Service Provider * Telephone Encounter - Paris Kirit - 08/22/2021 1:14 PM EST What insurance does the patient have today? [facility] Effective 06/09/09: BS will not retro referral [...] insurance must be obtained and registered in [facility] or their referral can not be processed. Is this a retro request? NO. If yes for what date of service do you need the retro referral? N/A Who is calling to request this referral? [facility] If the [...] YES Is this visit:Follow Up Address of Specialist:[address] [place] [address] Phone # of Specialist:[phone] Fax #: (if applicable):[phone] Does patient have an appointment scheduled?: YES Date of appointment- (including a retro-request): 08/28/21 Is this appointment related to: Not MVA, WC or Surgery related documented in this encounter Plan of Treatment Not on file documented as of this encounter Visit Diagnoses Not on filedocumented in this encounter Care Teams Flooring Machine Operator Relationship Specialty Start Date End Date Kirk Randle MD [address] [place] [address] [place] [address] PCP - General Internal Medicine 06/05/21 Ced Victoira MD [address] [place] [address] [place] [address] Project Lead Cardiovascular Disease 04/05/21 Virgie Trivedi NP [address] [place] [address] [place] [address] Nurse Practitioner Cardiology 04/05/21 Alana Celaya NP [address] [place] [address] [facility] [place] [address] Nurse Practitioner Cardiology 07/17/23 documented as of this encounter
--- OUTSIDE RECORDS SUMMARY | 2025-01-05 11:01 | XMS_ITS | Encounter Summary ---
Author Organization [facility] Address [address] [place] [address] Care Team Providers Care Collect On Delivery Clerk Name Role Phone Kathie Le PA-C Primary Care Provider + Kirk Randle MD Primary Care Provider [phone] Ced Victoria MD Unavailable [phone] Virgie Trivedi CLINICAL RESOURCE MANAGER Unavailable [phone] Kirk Randle MD Primary Care Provider [phone] Alana Celaya CLINICAL RESOURCE MANAGER Unavailable [phone] Reason for Visit * Reason Onset Date Comments Manager Fast Food Feedback 03/21/2020 SHALA LONGO NPI : [id number] Encounter Details Date Type Department Care Team Description 03/21/2020 Telephone Internal Medicine - [address], [address] [place] [address] Kathie eL PA-C [address] [place] [phone] Manager Fast Food Feedback (SHALA LONGO NPI : [id number] ) Social History Tobacco Use Types Packs/Day [...] Ara Chua - 03/21/2020 11:36 AM EDT [facility] HCS Review Request Submission Status [ Save Response to Batch ] Request: [id number] [facility] Trace #: [id number] Subscriber: VLADIMIR FLYNN Submitter : KIRK RANDLE Submitter Type: Provider : 1940 Referral (#[id number]) Specialty Care Review Type: Initial Certification Status : Certified in total Service Type : Medical Care Place Of Service : Other Place of Service Visits : 6 Service Date : 03/21/2020-03/21/2021 Service Providers Provider Name ID Provider Type SHALA LONGO NPI : [id number] Service Provider * Telephone Encounter - Rosalba Hubbard - 03/21/2020 11:05 AM EDT What insurance does the patient have today? [facility] Effective 06/09/09: BS will not retro referral [...] insurance must be obtained and registered in [facility] or their referral can not be [...] YES Is this visit:Initial Visit Address of Specialist:[address] [place] [address] Phone # of Specialist:[phone] Fax #: (if applicable):[phone] Does patient have an appointment scheduled?: YES Date of appointment- (including a retro-request): 04/01/2020 Is this appointment related to: Not MVA, WC or Surgery related documented in this encounter Plan of Treatment Not on file documented as of this encounter Visit Diagnoses Not on filedocumented in this encounter Care Teams Collect On Delivery Clerk Relationship Specialty Start Date End Date Kathie Le PA-C PCP - General Internal Medicine 02/23/20 07/11/20 Kirk Randle MD PCP - General Internal Medicine 07/12/20 06/04/21 Kirk Randle MD PCP - General Internal Medicine 06/05/21 Ced Victoria MD [address] [place] [address] [address] [place] [address] Library Specialist Cardiovascular Disease 04/05/21 Virgie Trivedi NP [address] [place] [address] [address] [place] [address] Nurse Practitioner Cardiology 04/05/21 Alana Celaya NP [address] [place] [address] Dr [facility] [place] [address] Nurse Practitioner Cardiology 07/17/23 documented as of this encounter
--- OUTSIDE RECORDS SUMMARY | 2025-01-05 11:01 | XMS_ITS | Encounter Summary ---
Author Organization [facility] Address [address] [place] [address] Care Team Providers Care Processing Technician Name Role Phone Minh Butts MD Primary Care Provider UnavailOctavio Rodrigues MD Primary Care Provider Unavaila Kathie Cordova PA-C Primary Care Provider + Kirk Randle MD Primary Care Provider [phone] Octavio Gross MD Primary Care Provider Unavaila Ced Rosen MD Unavailable [phone] Virgie Trivedi SHOE REPAIRMAN Unavailable [phone] Kirk Randle MD Primary Care Provider [phone] Alana Celaya SHOE REPAIRMAN Unavailable [phone] Encounter Details Date Type Department Care Team Description 1940 Turning Sander Tender Report Medical Records [address] [place] [id number] [facility] Social History Tobacco Use Types Packs/Day [...] on filedocumented in this encounter Care Teams Processing Technician Relationship Specialty Start Date End Date Minh [...] Internal Medicine 06/05/21 Ced Victoria MD [address] [place] [address] [address] [place], [place] [id number] Interface Developer Cardiovascular Disease 04/05/21 Virgie Trivedi NP [address] [place] [address] [address] [place] [address] Nurse Practitioner Cardiology 04/05/21 Alana Celaya NP [address] [place] [address] Dr [facility] [place] [address] Nurse Practitioner Cardiology 07/17/23 documented as of this encounter
--- OUTSIDE RECORDS SUMMARY | 2025-01-05 11:01 | XMS_ITS | Encounter Summary ---
Author Organization [facility] Address [address] [place] [address] Care Team Providers Care Wood Floor Refinisher Name Role Phone Octavio Gross MD Primary Care Provider Unavaila Kathie Cordova PA-C Primary Care Provider + Kirk Randle MD Primary Care Provider [phone] Ced Victoria MD Unavailable [phone] Virgie Trivedi NP Unavailable [phone] Kirk Randle MD Primary Care Provider [phone] Alana Celaya NP Unavailable Encounter Details Date Type Department Care Team Description 01/12/2020 Lead Bi Developer Report Medical Records [address] [place] [address] Ced Victoria MD [address] [place] [address] [address] [place] [address] Social History Tobacco Use Types Packs/Day Years [...] on filedocumented in this encounter Care Teams Wood Floor Refinisher Relationship Specialty Start Date End Date Octavio Gross MD PCP - General Internal Medicine 05/19/18 02/22/20 Kathie Le PA-C PCP - General Internal Medicine 02/23/20 07/11/20 Kirk Randle MD PCP - General Internal Medicine 07/12/20 06/04/21 Kirk Randle MD PCP - General Internal Medicine 06/05/21 Ced Victoria MD [address] [place] [address] [address] [place], [place] [phone] Furniture Removalist Cardiovascular Disease 04/05/21 Virgie Trivedi NP [address] [place] [address] [address] [place] [address] Nurse Practitioner Cardiology 04/05/21 Alana Celaya NP [address] [place] [address] Dr [facility] [place], [place] [id number] Nurse Practitioner Cardiology 07/17/23 documented as of this encounter
--- OUTSIDE RECORDS SUMMARY | 2025-01-05 11:01 | XMS_ITS | Encounter Summary ---
Author Organization [facility] Address [address] [place] [address] Care Team Providers Care Migration Specialist Name Role Phone Octavio Gross MD Primary Care Provider Unavaila Kathie Cordova PA-C Primary Care Provider + Kirk Randle MD Primary Care Provider [phone] Ced Victoria MD Unavailable [phone] Virgie Trivedi NP Unavailable [phone] Kirk Randle MD Primary Care Provider [phone] Alana Celaya NP Unavailable [phone] Encounter Details Date Type Department Care Team Description 07/09/2019 Analysis Reporting Developer Report Medical Records [address] [place] [id number] Abstract, Provider Social History Tobacco Use Types [...] on filedocumented in this encounter Care Teams Migration Specialist Relationship Specialty Start Date End Date Octavio Gross MD PCP - General Internal Medicine 05/19/18 02/22/20 Kathie Le PA-C PCP - General Internal Medicine 02/23/20 07/11/20 Kirk Randle MD PCP - General Internal Medicine 07/12/20 06/04/21 Kirk Randle MD PCP - General Internal Medicine 06/05/21 Ced Victoria MD [address] [place] [address] [address] [place] [address] Gauge Checker Cardiovascular Disease 04/05/21 Virgie Trivedi NP [address] [place] [address] [address] [place] [address] Nurse Practitioner Cardiology 04/05/21 Alana Celaya NP [address] [place] [address] Dr [facility] [place], [place] [id number] Nurse Practitioner Cardiology 07/17/23 documented as of this encounter
--- OUTSIDE RECORDS SUMMARY | 2025-01-05 11:01 | XMS_ITS | Encounter Summary ---
Author Organization [facility] Address [address] [place] [address] Care Team Providers Care Dive Supervisor Name Role Phone Ced Victoria MD Unavailable [phone] Virgie Trivedi NP Unavailable [phone] Kirk Randle MD Primary Care Provider [phone] Alana Celaya NP Unavailable [phone] Reason for Visit * Reason Onset Date Comments VNA Call 08/24/2021 Encounter Details Date Type Department Care Team Description 08/24/2021 Telephone Internal Medicine - [address], [address] [place], [place] [id number] Kirk Randle MD [address] [place] [address] VNA Call Social History Tobacco Use Types [...] on filedocumented in this encounter Care Teams Dive Supervisor Relationship Specialty Start Date End Date Kirk Randle MD [address] [place] [address] [place] [address] PCP - General Internal Medicine 06/05/21 Ced Victoria MD [address] [place] [address] [place] [address] Creping Machine Operator Helper Cardiovascular Disease 04/05/21 Virgie Trivedi NP [address] [place] [address] [place] [address] Nurse Practitioner Cardiology 04/05/21 Alana Celaya NP [address] [place] [address] [facility] [place] [address] Nurse Practitioner Cardiology 07/17/23 documented as of this encounter
--- OUTSIDE RECORDS SUMMARY | 2025-01-05 11:01 | XMS_ITS | Encounter Summary ---
Author Organization [facility] Address [address] [place] [address] Care Team Providers Care Health Associate Name Role Phone Ced Victoria MD Unavailable [phone] Virgie Trivedi NP Unavailable [phone] Kirk Randle MD Primary Care Provider [phone] Alana Celaya NP Unavailable [phone] Encounter Details Date Type Department Care Team Description 12/25/2021 Biomedical Engineering Technician Report Medical Records [address] [place] [address] Abstract, Provider Social History Tobacco Use Types [...] filedocumented in this encounter Care Teams Health Associate Relationship Specialty Start Date End Date Kirk Randle MD [address] [place] [address] [address] [place] [address] PCP - General Internal Medicine 06/05/21 Ced Victoria MD [address] [place] [address] [address] [place] [address] Precast Worker Cardiovascular Disease 04/05/21 Virgie Trivedi NP [address] [place] [address] [address] [place] [address] Nurse Practitioner Cardiology 04/05/21 Alana Celaya NP [address] [place] [address] Dr [facility] [place] [address] Nurse Practitioner Cardiology 07/17/23 documented as of this encounter
--- OUTSIDE RECORDS SUMMARY | 2025-01-05 11:01 | XMS_ITS | Encounter Summary ---
Author Organization [facility] Address [address] [place] [address] Care Team Providers Care Cryptological Technician Name Role Phone Ced Victoria MD Unavailable [phone] Virgie Trivedi NP Unavailable [phone] Kirk Randle MD Primary Care Provider [phone] Alana Celaya NP Unavailable [phone] Reason for Visit * Reason Onset Date Comments VNA Call 11/22/2021 Encounter Details Date Type Department Care Team Description 11/22/2021 Telephone Internal Medicine - [address], [address] [place], [place] [phone] Kirk Randle MD [address] [place], [place] [phone] VNA Call Social History Tobacco Use Types [...] - 11/22/2021 9:39 AM EDT Veronica from [facility] calling with INR of 5.5 for patient. States will hoild coumadin for today and recheck tomorrow. documented in this encounter Plan of Treatment Not on file documented as of this encounter Visit Diagnoses Not on filedocumented in this encounter Care Teams Cryptological Technician Relationship Specialty Start Date End Date Kirk Randle MD [address] [place] [address] [address] [place] [address] PCP - General Internal Medicine 06/05/21 Ced Victoria MD [address] [place] [address] [address] [place] [address] Crystal Mounter Cardiovascular Disease 04/05/21 Virgie Trivedi NP [address] [place] [address] [address] [place] [address] Nurse Practitioner Cardiology 04/05/21 Alana Celaya NP [address] [place] [address] Dr [facility] [place] [address] Nurse Practitioner Cardiology 07/17/23 documented as of this encounter
--- OUTSIDE RECORDS SUMMARY | 2025-01-05 11:01 | XMS_ITS | Encounter Summary ---
Author Organization [facility] Address [address] [place] [address] Care Team Providers Care Counter Clerk [employer] Name Role Phone Ced Victoria MD Unavailable [phone] Virgie Trivedi NP Unavailable [phone] Kirk Randle MD Primary Care Provider [phone] Alana Celaya NP Unavailable [phone] Encounter Details Date Type Department Care Team Description 12/18/2021 Manager Of Organizational Development Report Medical Records [address] [place] [id number] [place] [address] Social History Tobacco Use Types Packs/Day Years [...] on filedocumented in this encounter Care Teams Counter Clerk [employer] Relationship Specialty Start Date End Date Kirk Randle MD [address] [place] [address] [address] [place] [address] PCP - General Internal Medicine 06/05/21 Ced Victoria MD [address] [place] [address] [address] [place] [address] Blackener Cardiovascular Disease 04/05/21 Virgie Trivedi NP [address] [place] [address] [address] [place] [address] Nurse Practitioner Cardiology 04/05/21 Alana Celaya NP [address] [place] [address] Dr [facility] [place] [address] Nurse Practitioner Cardiology 07/17/23 documented as of this encounter
--- OUTSIDE RECORDS SUMMARY | 2025-01-05 11:01 | XMS_ITS | Encounter Summary ---
Author Organization [facility] Address [address] [place] [address] Care Team Providers Care Assistant Laboratory Director Name Role Phone Ced Victoria MD Unavailable [phone] Virgie Trivedi NP Unavailable [phone] Kirk Randle MD Primary Care Provider [phone] Alana Celaya NP Unavailable [phone] Reason for Visit * Reason Onset Date Comments refill request 04/03/2023 Encounter Details Date Type Department Care Team Description 04/03/2023 Refill Internal Medicine - [address], [address] [place] [address] Kirk Randle MD [address] [place] [address] refill request Social History Tobacco Use Types [...] encounter Miscellaneous Notes * Telephone Encounter - Mary Gamino - 04/03/2023 11:34 AM EDT No visits with results within 1 Month(s) from this visit. Latest known visit with results is: Orders Only on 12/04/2021 Component Date Value ??? VITAMIN D, 25-HYDROXY 12/04/2021 49 ??? TSH 12/04/2021 3.35 ??? WHITE BLOOD COUNT 12/04/2021 9.6 ??? RED BLOOD COUNT 12/04/2021 5.3 ??? Hemoglobin 12/04/2021 15.4 ??? Hematocrit 12/04/2021 49.2 ??? MEAN CORPUSCULAR VOLUME 12/04/2021 92.3 ??? MEAN CORPUSCULAR HEMOGLO* 12/04/2021 28.9 ??? MEAN CORPUSCULAR HGB CONC 12/04/2021 31.3 (L) ??? RED CELL DISTRIBUTION WI* 12/04/2021 15.3 (H) ??? PLT COUNT 12/04/2021 242 ??? MEAN PLATELET VOLUME 12/04/2021 11.9 (H) ??? NRBC % AUTO 12/04/2021 0.0 ??? NEUTROPHILS % 12/04/2021 64.1 ??? LYMPH % 12/04/2021 26.5 ??? MONO % 12/04/2021 7.3 ??? EOS % 12/04/2021 1.1 ??? BASO % 12/04/2021 0.5 ??? IMMATURE GRANULOCYTES % 12/04/2021 0.5 ??? NRBC # AUTO 12/04/2021 0.00 ??? NEUT # 12/04/2021 6.17 ??? LYMPH # 12/04/2021 2.55 ??? MONO # 12/04/2021 0.70 ??? EOS # 12/04/2021 0.11 ??? BASO # 12/04/2021 0.05 ??? IMMATURE GRANULOCYTES # 12/04/2021 0.05 (H) ??? Cholesterol 12/04/2021 119 ??? TRIGLYCERIDES 12/04/2021 89 ??? HDL CHOLESTEROL 12/04/2021 47 ??? LDL CALCULATED 12/04/2021 55 ??? TC-HDLC RATIO 12/04/2021 2.5 ??? GLUCOSE 12/04/2021 93 ??? Blood Urea Nitrogen 12/04/2021 26 (H) ??? CREAT 12/04/2021 1.02 ? ? GLOMERULAR FILTRATION RA* 12/04/2021 > 60 ??? NA 12/04/2021 141 ??? K 12/04/2021 3.9 ??? CL 12/04/2021 107 ??? CARBON DIOXIDE (CO2) 12/04/2021 27 ??? ANION GAP 12/04/2021 7 ??? CALCIUM 12/04/2021 10.0 ??? TOTAL PROTEIN (TP) 12/04/2021 7.8 ??? Albumin 12/04/2021 4.0 ??? BILIRUBIN TOTAL 12/04/2021 0.9 ??? SGOT 12/04/2021 29 ??? SGPT 12/04/2021 29 ??? ALK PHOS 12/04/2021 86 * Telephone Encounter - Ethan Fritz - 04/03/2023 11:27 AM EDT CLIFF 08/01/22 documented in this encounter Plan of Treatment Not on file documented as of this encounter Visit Diagnoses Not on filedocumented in this encounter Care Teams Assistant Laboratory Director Relationship Specialty Start Date End Date Kirk Randle MD [address] [place] [address] [address] [place] [address] PCP - General Internal Medicine 06/05/21 Ced Victoria MD [address] [place] [address] [address] [place] [address] Senior Analyst Programmer Cardiovascular Disease 04/05/21 Virgie Trivedi NP [address] [place] [address] [address] [place] [address] Nurse Practitioner Cardiology 04/05/21 Alana Celaya, GILBERTO [address] [place] [address] Dr M[facility]rack[facility] [place] [address] Nurse Practitioner Cardiology 07/17/23 documented as of this encounter
--- OUTSIDE RECORDS SUMMARY | 2025-01-05 11:01 | XMS_ITS | Encounter Summary ---
Author Organization [facility] Address [address] [place] [address] Care Team Providers Care Technical Healthcare Consultant Name Role Phone Ced Victoria MD Unavailable [phone] Virgie Trivedi NP Unavailable [phone] Kirk Randle MD Primary Care Provider [phone] Alana Celaya NP Unavailable [phone] Encounter Details Date Type Department Care Team Description 06/19/2021 Boot And Saddle Repair Person Report Medical Records [address] [place] [id number] [place] [address] Social History Tobacco Use Types Packs/Day Years [...] on filedocumented in this encounter Care Teams Technical Healthcare Consultant Relationship Specialty Start Date End Date Kirk Randle MD [address] [place] [address] [address] [place] [address] PCP - General Internal Medicine 06/05/21 Ced Victoria MD [address] [place] [address] [address] [place] [address] Centrifugal Drier Operator Cardiovascular Disease 04/05/21 Virgie Trivedi NP [address] [place] [address] [address] [place] [address] Nurse Practitioner Cardiology 04/05/21 Alana Celaya NP [address] [place] [address] Dr [facility] [place] [place] [address] Nurse Practitioner Cardiology 07/17/23 documented as of this encounter
--- OUTSIDE RECORDS SUMMARY | 2025-01-05 11:01 | XMS_ITS | Encounter Summary ---
Author Organization [facility] Address [address] [place] [address] Care Team Providers Care Dry House Operator Name Role Phone Ced Victoria MD Unavailable [phone] Virgie Trivedi NP Unavailable [phone] Kirk Randle MD Primary Care Provider [phone] Alana Celaya NP Unavailable [phone] Reason for Visit * Reason Onset Date Comments Varnishing Unit Operator Feedback 07/28/2021 TIMO JAIME Encounter Details Date Type Department Care Team Description 07/28/2021 Telephone Internal Medicine - [address], [address] [place] [address] Kirk Randle MD [address] [place] [address] Varnishing Unit Operator Feedback (TIMO KELLOGG) Social History Tobacco Use [...] Judi Edmond - 07/28/2021 10:34 AM EST [facility] HCS Review Request Submission Status [ Save Response to Batch ] Request: [id number] [id number] [facility] Trace #: [id number] Subscriber: VLADIMIR FLYNN Submitter : KIRK RANDLE Submitter Type: Provider : 1940 Referral (#[id number]) Specialty Care Review Type: Initial Certification Status : Certified in total Service Type : Medical Care Place Of Service : Office Visits : 6 Service Date : 08/07/2021-08/07/2022 Service Providers Provider Name ID Provider Type TIMO SNOW VALDEZ NPI : [id number] Service Provider * Telephone Encounter - Judi [...] What insurance does the patient have today? [facility] MDCR Pref Effective 06/09/09: BCBS will [...] service do you need the retro referral? [facility] requests 10 additional visits Who is calling to request this referral? [facility] If the caller is not the patient, what is their name? Felicita Ask the patient WHO referred them to this specialty: Not an initial visit; it is for follow up/continuation of care. Patients PCP is Kirk Randle FIRST and LAST NAME of SPECIALIST PATIENT is seeing: JUAN Mccormick NPI # [id number] What specialty is this? Wound care DIAGNOSIS [...] this visit:Follow Up Address of Specialist: [address] [place] [address] [place] [address] Phone # of Specialist: [phone] Fax #: (if applicable):[phone] Does patient have an appointment scheduled?: YES Date of appointment- (including a retro-request): 08/07/2021 - AND ASKS FOR 10 MORE VISITS - WHICH WILL INCLUDE THE 08/07/2021 DATE Is this appointment related to: Not MVA, WC or Surgery related [facility] sent fax for additional visits. - PLEASE FAX APPROVAL TO THEIR FAX NUMBER documented in this encounter Plan of Treatment Not on file documented as of this encounter Visit Diagnoses Not on filedocumented in this encounter Care Teams Dry House Operator Relationship Specialty Start Date End Date Kirk Randle MD [address] [place] [address] [address] [place] [address] PCP - General Internal Medicine 06/05/21 Ced Victoria MD [address] [place] [address] [address] [place] [address] Handy Worker Cardiovascular Disease 04/05/21 Virgie Trivedi NP [address] [place] [address] [address] [place] [address] Nurse Practitioner Cardiology 04/05/21 Alana Celaya NP [address] [place] [address] Dr [facility] [place] [address] Nurse Practitioner Cardiology 07/17/23 documented as of this encounter
--- OUTSIDE RECORDS SUMMARY | 2025-01-05 11:01 | XMS_ITS | Encounter Summary ---
Author Organization [facility] Address [address] [place] [address] Care Team Providers Care Internal Medicine Physician Assistant Name Role Phone Ced Victoria MD Unavailable [phone] Virgie Trivedi NP Unavailable [phone] Kirk Randle MD Primary Care Provider [phone] Alana Celaya NP Unavailable [phone] Encounter Details Date Type Department Care Team Description 10/09/2021 Finish Patcher Report Medical Records [address] [place] [id number] [place] [address] Social History Tobacco Use Types Packs/Day Years [...] in this encounter Care Teams Internal Medicine Physician Assistant Relationship Specialty Start Date End Date Kirk Randle MD [address] [place] [address] [address] [place] [address] PCP - General Internal Medicine 06/05/21 Ced Victoria MD [address] [place] [address] [address] [place] [address] Chro Cardiovascular Disease 04/05/21 Virgie Trivedi NP [address] [place] [address] [address] [place] [address] Nurse Practitioner Cardiology 04/05/21 Alana Celaya NP [address] [place] [address] Dr [facility] [place] [address] Nurse Practitioner Cardiology 07/17/23 documented as of this encounter
--- OUTSIDE RECORDS SUMMARY | 2025-01-05 11:01 | XMS_ITS | Encounter Summary ---
Author Organization [facility] Address [address] [place] [address] Care Team Providers Care Spout Worker Name Role Phone Ced Victoria MD Unavailable [phone] Virgie Trivedi NP Unavailable [phone] Kirk Randle MD Primary Care Provider [phone] Alana Celaya NP Unavailable [phone] Reason for Referral * EXTERNAL (Routine) - Authorized/Booked Specialty Diagnoses / Procedures Referred By Contmigel t Referred To Contact Infectious Disease Procedures REFERRAL TO INFECTIOUS DISEASE Kirk Randle MD [address] [place] [address] Ileana Renee MD [address] [address] Referral ID Status Reason Start Date Expiration Date V isits Requested Visits Authorized [id number] Authorized/B ooked 10/16/2022 01/16/2023 1 1 Reason for Visit * Reason Onset Date Comments REFERRAL 10/10/2022 Edi Consultant Feedback 10/10/2022 Infectious disea se referral Encounter Details Date Type Department Care Team Description 10/10/2022 Telephone Internal Medicine - [address], [address] [place] [address] Kirk Randle MD [address] [place], [place] [id number] REFERRAL; Edi Consultant Feedback (Infectious disease referral) Social History Tobacco [...] to have serious infection. I printed out [facility] hospital report which stated Discharge diagnosis Osteomyelitis. [...] What insurance does the patient have today? [facility] Effective 06/09/09: BS will not retro referral [...] YES Is this visit:Follow Up Address of Specialist:[address] [place] [address] Phone # of Specialist:[phone] Fax #: (if applicable): Does patient have an appointment scheduled?: YES Date of appointment- (including a retro-request): 10/16/22 Is this appointment related to: Not MVA, WC or Surgery related documented in this encounter Plan of Treatment Not on file documented as of this encounter Visit Diagnoses Not on filedocumented in this encounter Care Teams Spout Worker Relationship Specialty Start Date End Date Kirk Randle MD [address] [place] [address] [address] [place] [address] PCP - General Internal Medicine 06/05/21 Ced Victoria MD [address] [place] [address] [address] [place] [address] Manager Bakery Cardiovascular Disease 04/05/21 Virgie Trivedi NP [address] [place] [address] [address] [place] [address] Nurse Practitioner Cardiology 04/05/21 Alana Celaya NP [address] [place] [address] [facility] [place] [address] Nurse Practitioner Cardiology 07/17/23 documented as of this encounter
--- OUTSIDE RECORDS SUMMARY | 2025-01-05 11:01 | XMS_ITS | Encounter Summary ---
Author Organization [facility] Address [address] [place] [address] Care Team Providers Care House Painting Instructor Name Role Phone Ced Victoria MD Unavailable [phone] Virgie Trivedi NP Unavailable [phone] Kirk Randle MD Primary Care Provider [phone] Alana Celaya NP Unavailable [phone] Encounter Details Date Type Department Care Team Description 03/26/2023 Orders Only Medical Records [address] [place] [address] Kirk Randle MD [address] [place], [place] [phone] Social History Tobacco Use Types Packs/Day Years [...] on filedocumented in this encounter Care Teams House Painting Instructor Relationship Specialty Start Date End Date Kirk Randle MD [address] [place] [address] DR[address] [place] [address] PCP - General Internal Medicine 06/05/21 Ced Victoria MD [address] [place] [address] [address] [place] [address] Web Site Designer Cardiovascular Disease 04/05/21 Virgie Trivedi NP [address] [place] [address] [address]IVE [address] [place] [address] Nurse Practitioner Cardiology 04/05/21 Alana Celaya NP [address] [place] [address] Dr [facility] [place] [address] Nurse Practitioner Cardiology 07/17/23 documented as of this encounter
--- OUTSIDE RECORDS SUMMARY | 2025-01-05 11:01 | XMS_ITS | Encounter Summary ---
Author Organization [facility] Address [address] [place] [address] Care Team Providers Care Chemical Processing Laborer Name Role Phone Ced Victoria MD Unavailable [phone] Virgie Trivedi NP Unavailable [phone] Kirk Randle MD Primary Care Provider [phone] Alana Celaya NP Unavailable [phone] Encounter Details Date Type Department Care Team Description 09/05/2021 Telephone Internal Medicine - [address], [address] [place], [place] [phone] Kirk Randle MD [address] [place], [place] [phone] Social History Tobacco Use Types Packs/Day Years [...] on filedocumented in this encounter Care Teams Chemical Processing Laborer Relationship Specialty Start Date End Date Kirk Randle MD [address] [place] [address] DRIVE [address] [place] [address] PCP - General Internal Medicine 06/05/21 Ced Victoria MD [address] [place] [address] [address] [place] [address] Neighborhood Coordinator Cardiovascular Disease 04/05/21 Virgie Trivedi NP [address] [place] [address] [address] [place] [address] Nurse Practitioner Cardiology 04/05/21 Alana Celaya NP [address] [place] [address] [facility] [place] [address] Nurse Practitioner Cardiology 07/17/23 documented as of this encounter
--- OUTSIDE RECORDS SUMMARY | 2025-01-05 11:02 | XMS_ITS | Encounter Summary ---
Author Organization [facility] Address [address] [place] [address] Care Team Providers Care Scalemaker Name Role Phone Ced Victoria MD Unavailable [phone] Virgie Trivedi NP Unavailable [phone] Kirk Randle MD Primary Care Provider [phone] Alana Celaya NP Unavailable [phone] Encounter Details Date Type Department Care Team Description 02/01/2023 Carpenter Helper Report Medical Records [address] [place] [address] Social History Tobacco Use Types Packs/Day Years [...] on filedocumented in this encounter Care Teams Scalemaker Relationship Specialty Start Date End Date Kirk Randle MD [address] [place] [address] [address] [place] [address] PCP - General Internal Medicine 06/05/21 Ced Victoria MD [address] [place] [address] [address] [place] [address] Director Of Application Development Cardiovascular Disease 04/05/21 Virgie Trivedi NP [address] [place] [address] [address] [place] [address] Nurse Practitioner Cardiology 04/05/21 Alana Celaya NP [address] [place] [address] Dr [facility] [place] [address] Nurse Practitioner Cardiology 07/17/23 documented as of this encounter
--- OUTSIDE RECORDS SUMMARY | 2025-01-05 11:02 | XMS_ITS | Encounter Summary ---
Author Organization [facility] Address [address] [place] [address] Care Team Providers Care Consulting Solution Director Name Role Phone Ced Victoria MD Unavailable [phone] Virgie Trivedi NP Unavailable [phone] Kirk Randle MD Primary Care Provider [phone] Alana Celaya NP Unavailable [phone] Encounter Details Date Type Department Care Team Description 10/28/2022 Hospital Medical Records [address] [place] [address] Marielos Rosales MD Social History Tobacco Use [...] on filedocumented in this encounter Care Teams Consulting Solution Director Relationship Specialty Start Date End Date Kirk Randle MD [address] [place] [address] [address] [place] [address] PCP - General Internal Medicine 06/05/21 Ced Victoria MD [address] [place] [address] [address] [place] [address] Professor Of History Cardiovascular Disease 04/05/21 Virgie Trivedi NP [address] [place] [address] [address] [place] [address] Nurse Practitioner Cardiology 04/05/21 Alana Celaya NP [address] [place] [address] Dr [facility] [place] [address] Nurse Practitioner Cardiology 07/17/23 documented as of this encounter
--- OUTSIDE RECORDS SUMMARY | 2025-01-05 11:02 | XMS_ITS | Encounter Summary ---
Author Organization [facility] Address [address] [place] [address] Care Team Providers Care Social Worker Masters Name Role Phone Ced Victoria MD Unavailable [phone] Virgie Trivedi NP Unavailable [phone] Kirk Randle MD Primary Care Provider [phone] Alana Celaya NP Unavailable [phone] Encounter Details Date Type Department Care Team Description 09/15/2021 Home Health Certification Medical Records [address] [place] [address] Social History Tobacco Use Types Packs/Day Years [...] filedocumented in this encounter Care Teams Social Worker Masters Relationship Specialty Start Date End Date Kirk Randle MD [address] [place] [address] [address] [place], [place] [phone] PCP - General Internal Medicine 06/05/21 Ced Victoria MD [address] [place] [address] [address] [place] [address] Pl Sql Programmer Cardiovascular Disease 04/05/21 Virgie Trivedi NP [address] [place] [address] [address] [place] [address] Nurse Practitioner Cardiology 04/05/21 Alana Celaya NP [address] [place] [address] Dr [facility] [place] [address] Nurse Practitioner Cardiology 07/17/23 documented as of this encounter
--- OUTSIDE RECORDS SUMMARY | 2025-01-05 11:02 | XMS_ITS | Patient Health Record ---
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, bilateral legs (I70.203) Diagnosis 4 Other hammer toe(s) (acquired), right foot (M20.41) Diagnosis 5 Non-pressure chronic ulcer of other part of right foot with fat layer exposed (L97.512) Diagnosis 6 Venous insufficiency (I87.2) Diagnosis 7 Pressure injury of r ight ankle, stage 1 (L89.511) Referring Provider First Name Kirk Referring Provider Last Name Jer Referred Organization [facility] Jamal Referred Provider Anuradha Hermosillo Referred Address [address] [facility],[place],[address], Referred Provider Specialty Podiatry Referral Priority Routine Medications Medication SIG (Take, Route, Frequency, Duration) Notes Start Date End Date Status Warfarin Sodium 5 MG 1 tablet Orally Two times a Week for 30 day(s) Active Fish Oil 1200 MG 1 capsule [...] disabled from 07/27/15 thru 09/16/15 09/14/2015 Not-Taking Mupirocin 2 % 1 application Externally Twice a day to any open cuts for 30 days 10/20/2024 Active Simvastatin 40 MG 1 tablet in the even ing Orally Once a day for 30 day(s) Active Metoprolol Succinate ER 25 MG 1 tablet Orally Once a day for 30 day(s) Active Multivitamin Active Ibuprofen 800 MG 1 tablet every Orall y Three times a day for 14 days 07/04/2015 Not-Taking Furosemide Active Cipro 500 MG 1 tablet Orally Twic e a day for 10 day(s) 08/24/2015 Not-Taking Ammonium Lactate 12 % 1 application Externally to affected areas of dry skin to feet except for between the toes Twice a day for 30 days Active Ammonium Lactate 12 % 1 application to affected area Externally Twice a day to dry areas of skin on feet for 30 days Active Immunizations Vaccine Route Administration Date Status Comme [...] W/U Status Risk Notes Problem Tinea unguium (546377117) Tinea unguium (B35.1) Active confirmed Problem Non-pressure chronic ulcer of other part of right foot with fat layer exposed (L97.512) Active confirmed Problem Bilateral atherosclerosis of arteries of lower limbs (disorder) (0439518479059817 7) 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, bilateral legs (I70.203) Active confirmed Problem Acquired hammer toe of right foot (1085212093434747 ) Other hammer toe(s) (acquired), right foot (M20.41) Active confirmed Problem Acquired hammer toe of left foot (6070219978720614 ) Other hammer toe(s) (acquired), left foot (M20.42) Active confirmed Problem [id number] Venous insufficiency (I87.2) Active confirmed Problem 12860377690661 Pressure injury of right ankle, stage 1 (L89.511) Active confirmed Problem 581307378 Ischemic ulcer o f left foot, limited to breakdown of skin (L97.521) Active confirmed Problem 412058761 Ischemic ulcer o f right heel, limited to breakdown of skin (L97.411) Active confirmed Problem Ischemic ulcer o f left heel, limited to breakdown of skin (L97.421) Active confirmed Response to treatment Vital Signs Blood pressure diastolic 76 mm Hg 12/22/2024 Height 6 ft 3 in in 12/22/2024 Blood pressure systolic 115 mm Hg 12/22/2024 Weight 215 lbs 12/22/2024 BMI 26.87 kg/m2 12/22/2024 Encounters Encounter Location Date Provider Diagnosis [address] [address] 02/18/2024 Anuradha Perica Pain in right toe(s) M79.674 ; Tinea unguium B35.1 ; Pain in left toe(s) M79.675 ; 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, bilateral legs I70.203 ; Other hammer toe(s) (acquired), left foot M20.42 ; Other hammer toe(s) (acquired), right foot M20.41 and Venous insufficiency I87.[address] [facility] [address] 05/22/2024 Anuradha Perica Tinea unguium B35.1 ; 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, bilateral legs I70.203 ; Pain in right toe(s) M79.674 ; Pain in left toe(s) M79.675 ; Other hammer toe(s) (acquired), left foot M20.42 ; Other hammer toe(s) (acquired), right foot M20.41 and Venous insufficiency I87.[address] [address] 08/21/2024 Anuradha Hermosillo Tinea unguium B35.1 ; 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, bilateral legs I70.203 ; Pain in right toe(s) M79.674 ; Pain in left toe(s) M79.675 ; Other hammer toe(s) (acquired), left foot M20.42 ; Other hammer toe(s) (acquired), right foot M20.41 ; Venous insufficiency I87.2 and Ischemic ulcer of left foot, limited to breakdown of skin L97.[address] [address] 10/20/2024 Anuradha Hermosillo Ischemic ulcer of le ft heel, limited to breakdown of skin L97.421 ; Xerosis of skin L85.3 ; 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, bilateral legs I70.203 ; Other hammer toe(s) (acquired), left foot M20.42 ; Other hammer toe(s) (acquired), right foot M20.41 and Ischemic ulcer of right heel, limited to breakdown of skin L97.[address] [address] 11/20/2024 Anuradha Hermosillo Ischemic ulcer of le ft heel, limited to breakdown of skin L97.421 ; Xerosis of skin L85.3 ; 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, bilateral legs I70.203 ; Other hammer toe(s) (acquired), left foot M20.42 and Other hammer toe(s) (acquired), right foot M20.[address] [address] 12/22/2024 Anuradha Hermosillo 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, bilateral legs I70.203 ; Xerosis of skin L85.3 ; Tinea unguium B35.1 ; Pain in right toe(s) M79.674 ; Pain in left toe(s) M79.675 ; Other hammer toe(s) (acquired), left foot M20.42 ; Other hammer toe(s) (acquired), right foot M20.41 and Venous insufficiency I87.2 [facility] [address] [address] 10/16/2024 Anuradha Hermosillo [facility] [address] [address] 10/21/2024 Anuradha Hermosillo [facility] [address] [address] 11/02/2024 Anuradha Hermosillo Assessments Encounter Date Diagnosis (ICD Code) Assessment Notes Treatment Notes Treatment Clinical Notes Section Notes 02/18/2024 Pain in right toe(s) (ICD-10 - M79.674) 05/22/2024 Tinea unguium (ICD-10 - B35.1) 05/22/2024 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, bilateral legs (ICD-10 - I70.203) 08/21/2024 Tinea unguium (ICD-10 - B35.1) 10/20/2024 Xerosis of skin (ICD-10 - L85.3) 10/20/2024 Ischemic ulcer of left heel, limited to breakdown of skin (ICD-10 - L97.421) Patient Educated with: WOUND CARE INSTRUCTIONS. pdf (WOUND CARE INSTRUCTIONS. pdf) 11/20/2024 Xerosis of skin (ICD-10 - L85.3) 11/20/2024 Ischemic ulcer of left heel, limited to breakdown of skin (ICD-10 - L97.421) Patient Educated with: WOUND CARE INSTRUCTIONS. pdf (WOUND CARE INSTRUCTIONS. pdf) 12/22/2024 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, bilateral legs (ICD-10 - I70.203) 12/22/2024 Xerosis of skin (ICD-10 - L85.3) 12/22/2024 Tinea unguium (ICD-10 - B35.1) 11/20/2024 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, bilateral legs (ICD-10 - I70.203) 08/21/2024 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, bilateral legs (ICD-10 - I70.203) 10/20/2024 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, bilateral legs (ICD-10 - I70.203) 02/18/2024 Tinea unguium (ICD-10 - B35.1) 08/21/2024 Pain in right toe(s) (ICD-10 - M79.674) 05/22/2024 Pain in right toe(s) (ICD-10 - M79.674) 05/22/2024 Pain in left toe(s) (ICD-10 - M79.675) 08/21/2024 Pain in left toe(s) (ICD-10 - M79.675) 02/18/2024 Pain in left toe(s) (ICD-10 - M79.675) 10/20/2024 Other hammer toe(s) (acquired), left foot (ICD-10 - M20.42) 12/22/2024 Pain in right toe(s) (ICD-10 - M79.674) 11/20/2024 Other hammer toe(s) (acquired), left foot (ICD-10 - M20.42) 12/22/2024 Pain in left toe(s) (ICD-10 - M79.675) 11/20/2024 Other hammer toe(s) (acquired), right foot (ICD-10 - M20.41) 10/20/2024 Other hammer toe(s) (acquired), right foot (ICD-10 - M20.41) 08/21/2024 Other hammer toe(s) (acquired), left foot (ICD-10 - M20.42) 02/18/2024 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, bilateral legs (ICD-10 - I70.203) 05/22/2024 Other hammer toe(s) (acquired), left foot (ICD-10 - M20.42) 05/22/2024 Other hammer toe(s) (acquired), right foot (ICD-10 - M20.41) 02/18/2024 Other hammer toe(s) (acquired), left foot (ICD-10 - M20.42) 08/21/2024 Other hammer toe(s) (acquired), right foot (ICD-10 - M20.41) 10/20/2024 Ischemic ulcer of right heel, limited to breakdown of skin (ICD-10 - L97.411) 12/22/2024 Other hammer toe(s) (acquired), left foot (ICD-10 - M20.42) 12/22/2024 Other hammer toe(s) (acquired), right foot (ICD-10 - M20.41) 08/21/2024 Venous insufficiency (ICD-10 - I87.2) 02/18/2024 Other hammer toe(s) (acquired), right foot (ICD-10 - M20.41) 05/22/2024 Venous insufficiency (ICD-10 - I87.2) 02/18/2024 Venous insufficiency (ICD-10 - I87.2) 08/21/2024 Ischemic ulcer of left foot, limited to breakdown of skin (ICD-10 - L97.521) 12/22/2024 Venous insufficiency (ICD-10 - I87.2) 12/22/2024 Other Plan Of Treatment Pending Test Test Name Order Date X ray : Foot, left 2V 01/27/2015 X ray : Foot, left 2V 07/04/2015 X ray : Foot, left 2V 08/01/2015 X ray : Foot, left 2V 08/11/2015 X ray : Foot, left 2V 08/24/2015 X ray : Foot, left 2V 09/14/2015 79363-IHWESGG NAIL, 6 OR MORE 11/16/2015 98747-MUOJRYL NAIL, 6 OR MORE 05/16/2016 43781-SJQAUPA NAIL, 6 OR MORE 08/23/2016 15269-AWAVZXZ NAIL, 6 OR MORE 12/05/2016 56189-MXBYOSK NAIL, 6 OR MORE 03/06/2017 17264-LLJDXHP NAIL, 6 OR MORE 07/03/2017 33444-WUFHQBD NAIL, 6 OR MORE 03/10/2015 49158-UCMBKMM NAIL, 6 OR MORE 06/13/2015 70401-DNDSRIL NAIL, 6 OR MORE 10/01/2013 13175-IQMJZDC NAIL, 6 OR MORE 01/13/2015 57882-RYISYQM NAIL, 6 OR MORE 06/30/2018 02102-EZXHUAM NAIL, 6 OR MORE 11/04/2017 01307-NVKOPFJ NAIL, 6 OR MORE 03/05/2018 38752-Mgop Destruction, 1-14 01/27/2015 69482-Ijda Destruction, 1-14 01/13/2015 20833-Ewgu Destruction, 1-14 03/10/2015 56819-Qufu Destruction, 1-14 06/13/2015 81574-Agxybvcx Plate 06/13/2015 11798-Qeekhdmd Plate 03/10/2015 38935-Gjsvnsod Plate 06/30/2018 67911- Debride <25 sq cm 03/10/2015 94030- Debride <25 sq cm 01/27/2015 86039- Debride <25 sq cm 08/24/2015 81309- Debride <25 sq cm 09/05/2015 25882- Debride <25 sq cm 09/14/2015 21678-HQQERGF SKIN/TISSUE 01/13/2015 65306-ZEBRTFQ SKIN/TISSUE 07/20/2015 90966-UAHZVOM SKIN/TISSUE 06/27/2015 48866-VKUTXVQ SKIN/TISSUE 07/04/2015 22158-SHMVFLJ SKIN/TISSUE 10/17/2022 51252-ITXE SKIN LESIONS, OVER 4 11/15/19 21 64775-EAIL SKIN LESIONS, OVER 4 03/16/20 21 60573-JOHK SKIN LESIONS, OVER 4 10/17/19 23 72818-ZNWG SKIN LESIONS, 2 TO 4 06/30/20 18 24516-ENBG SKIN LESIONS, 2 TO 4 03/05/20 18 73245-QLSZ SKIN LESIONS, 2 TO 4 11/25/19 19 68894-XGKA SKIN LESIONS, 2 TO 4 03/30/20 19 36058-MHZH SKIN LESIONS, 2 TO 4 07/20/20 19 00026-ELZM SKIN LESIONS, 2 TO 4 11/18/19 20 37899-ZVXT SKIN LESIONS, 2 TO 4 03/21/20 20 47683-YGYA SKIN LESIONS, 2 TO 4 07/20/20 20 41210-OERE SKIN LESIONS, 2 TO 4 02/28/20 23 47895-MFZV SKIN LESIONS, 2 TO 4 05/16/20 16 14060-WMHE SKIN LESIONS, 2 TO 4 11/16/19 16 79427-SGOE SKIN LESIONS, 2 TO 4 11/04/19 18 67261-FIGX SKIN LESIONS, 2 TO 4 07/03/20 17 77154-WDRJ SKIN LESIONS, 2 TO 4 12/06/19 17 31483-MXKH SKIN LESIONS, 2 TO 4 03/06/20 17 45310-RUHV SKIN LESIONS, 2 TO 4 08/23/20 16 78959-DRQYVYXP OF HEMATOMA/FLUID 023 Next Appt Details Provider Name:Anuradha Amado Yamileth amado, 02/23/2025 04:00:00 PM, [address] [place], [address], Insurance Providers Payer Name Payer Address Payer Phone Subscriber Number Group Number Insured Name Patient Relationship to Insured Coverage Start Date Coverage End Date [facility] [address] [place] [address] [id number] Vladimir Flynn Self - patient is the insured 4 Medical (General) History Medical History History ICD Code Arthritis Back,Hip,and Knee pain Cataracts Heart disease Chicken pox Surgical History Surgery Date(Month/Year) cataract surgery-right eye new lens 2006 stents-blocked artery 02/09/2004 HT/ulcer left 07/28/2015 Right Total Knee Replacement 10/06/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 04/2016
--- OUTSIDE RECORDS SUMMARY | 2025-01-05 11:02 | XMS_ITS | Encounter Summary ---
Author Organization [facility] Address [address] [place] [address] Care Team Providers Care Sales Agent Pest Control Service Name Role Phone Ced Victoria MD Unavailable [phone] Virgie Trivedi NP Unavailable [phone] Kirk Randle MD Primary Care Provider [phone] Alana Celaya NP Unavailable [phone] Encounter Details Date Type Department Care Team Description 10/23/2021 Nursing Assoc Report Medical Records [address] [place] [id number] [place] [address] Social History Tobacco Use Types Packs/Day Years [...] filedocumented in this encounter Care Teams Sales Agent Pest Control Service Relationship Specialty Start Date End Date Kirk Randle MD [address] [place] [address] [address] [place] [address] PCP - General Internal Medicine 06/05/21 Ced Victoria MD [address] [place] [address] [address] [place] [address] Superintendent Logging Cardiovascular Disease 04/05/21 Virgie Trivedi NP [address] [place] [address] [address] [place] [address] Nurse Practitioner Cardiology 04/05/21 Alana Celaya NP [address] [place] [address] [facility] [place] [address] Nurse Practitioner Cardiology 07/17/23 documented as of this encounter
--- OUTSIDE RECORDS SUMMARY | 2025-01-05 11:02 | XMS_ITS | Encounter Summary ---
Author Organization [facility] Address [address] [place] [address] Care Team Providers Care Market Gardener Name Role Phone Ced Victoria MD Unavailable [phone] Virgie Trivedi NP Unavailable [phone] Kirk Randle MD Primary Care Provider [phone] Alana Celaya NP Unavailable [phone] Encounter Details Date Type Department Care Team Description 10/25/2022 [facility] Vascular Surgery [address] [place] [phone] Francine Schofield PA-C Social History Tobacco [...] on filedocumented in this encounter Care Teams Market Gardener Relationship Specialty Start Date End Date Kirk Randle MD [address] [place] [address] [address] [place] [address] PCP - General Internal Medicine 06/05/21 Ced Victoria MD [address] [place] [address] [address] [place] [address] Diabetologist Cardiovascular Disease 04/05/21 Virgie Trivedi NP [address] [place] [address] [address] [place] [address] Nurse Practitioner Cardiology 04/05/21 Alana Celaya NP [address] [place] [address] [facility] [place] [place] [address] Nurse Practitioner Cardiology 07/17/23 documented as of this encounter
--- OUTSIDE RECORDS SUMMARY | 2025-01-05 11:02 | XMS_ITS | Encounter Summary ---
Author Organization [facility] Address [address] [place] [address] Care Team Providers Care Fiscal Officer Name Role Phone Ced Victoria MD Unavailable [phone] Virgie Trivedi NP Unavailable [phone] Kirk Randle MD Primary Care Provider [phone] Alana Celaya NP Unavailable [phone] Encounter Details Date Type Department Care Team Description 11/13/2022 Home Health Certification Medical Records [address] [place] [id number] Social History Tobacco Use Types Packs/Day Years [...] on filedocumented in this encounter Care Teams Fiscal Officer Relationship Specialty Start Date End Date Kirk Randle MD [address] [place] [address] [address] [place] [address] PCP - General Internal Medicine 06/05/21 Ced Victoria MD [address] [place] [address] [address] [place] [address] Filtration Plant Mechanic Cardiovascular Disease 04/05/21 Virgie Trivedi NP [address] [place] [address] [address] [place] [address] Nurse Practitioner Cardiology 04/05/21 Alana Celaya NP [address] [place] [address] [facility] [place] [address] Nurse Practitioner Cardiology 07/17/23 documented as of this encounter
--- OUTSIDE RECORDS SUMMARY | 2025-01-05 11:02 | XMS_ITS | Encounter Summary ---
Author Organization [facility] Address [address] [place] [address] Care Team Providers Care Lumber Racker Name Role Phone Ced Victoria MD Unavailable [phone] Virgie Trivedi NP Unavailable [phone] Kirk Randle MD Primary Care Provider [phone] Alana Celaya NP Unavailable [phone] Encounter Details Date Type Department Care Team Description 09/25/2021 Public Relations Account Supervisor Report Medical Records [address] [place] [id number] [place] [address] Social History Tobacco Use Types Packs/Day Years [...] filedocumented in this encounter Care Teams Lumber Racker Relationship Specialty Start Date End Date Kirk Randle MD [address] [place] [address] [address] [place] [address] PCP - General Internal Medicine 06/05/21 Ced Victoria MD [address] [place] [address] [address] [place] [address] [employer] Products Machine Operator Cardiovascular Disease 04/05/21 Virgie Trivedi NP [address] [place] [address] [address] [place], [place] [id number] Nurse Practitioner Cardiology 04/05/21 Alana Celaya NP [address] [place] [address] [facility] [place] [address] Nurse Practitioner Cardiology 07/17/23 documented as of this encounter
--- OUTSIDE RECORDS SUMMARY | 2025-01-05 11:02 | XMS_ITS | Encounter Summary ---
Author Organization [facility] Address [address] [place] [address] Care Team Providers Care Polymer Tester Name Role Phone Ced Victoria MD Unavailable [phone] Virgie Trivedi NP Unavailable [phone] Kirk Randle MD Primary Care Provider [phone] Alana Celaya NP Unavailable [phone] Encounter Details Date Type Department Care Team Description 10/02/2021 Lab Support Tech Report Medical Records [address] [place] [id number] [place] [address] Social History Tobacco Use Types Packs/Day Years [...] filedocumented in this encounter Care Teams Polymer Tester Relationship Specialty Start Date End Date Kirk Randle MD [address] [place] [address] [address] [place] [address] PCP - General Internal Medicine 06/05/21 Ced Victoria MD [address] [place] [address] [address] [place] [address] Manager Building Cardiovascular Disease 04/05/21 Virgie Trivedi NP [address] [place] [address] [address] [place], [place] [phone] Nurse Practitioner Cardiology 04/05/21 Alana Celaya NP [address] [place] [address] [facility] [place] [address] Nurse Practitioner Cardiology 07/17/23 documented as of this encounter
--- OUTSIDE RECORDS SUMMARY | 2025-01-05 11:02 | XMS_ITS ---
Author Organization [facility] Address [address] [place] [address] Care Team Providers Care Alarm Mechanic Name Role Phone Kirk Randle MD Primary Care Provider UnavailAnuradha Camp [phone] REASON FOR VISIT wound at the base of the heel Encounters Encounter Location Date Provider Diagnosis [address] [phone] 11/02/2024 Anuradha Hermosillo Plan Of Treatment Next Appt Details Provider Name:Anuradha amado, 02/23/2025 04:00:00 PM, [address] [place], [address], Progress Notes * Vladimir FLYNNDOB:1940 (84 yo M)Acc No.[id number]:11/02/2024 Patient:?Vladimir FLYNN :1940???Age:84 Y???Sex:Male Address:[address] [facility], [place], [address] * true * Date:? Generated for Printi ng/Faxing/eTransmitting on:?01/05/2025 11:01 AM EDT
== END 2025-01-05 10:18 | disposition home or self-care (01) ==
LOC: HO.ACS 09:49
PROVIDERS: PCP Internal Medicine; Visit Provider Internal Medicine Medical Oncology
DX: Z79.01 Long term (current) use of anticoagulants (principal)

== ENCOUNTER → 2025-01-05 09:49 | Outpatient (BNVA) | payer MEDICARE, SELFPAY | PROVIDERS: PCP Internal Medicine; Visit Provider Internal Medicine Medical Oncology | DX: I48.91 Unspecified atrial fibrillation (principal); Z79.01 Long term (current) use of anticoagulants; Z51.81 Encounter for therapeutic drug level monitoring | CPT/HCPCS: 85610; 99211 ==

== ENCOUNTER 2025-02-02 09:44 | Outpatient (AMB) | payer MEDICARE, SELFPAY ==
[2025-02-02 09:52] LABS: Prothrombin Time Whole Bld POC 40.6 sec (11.1-13.5); ~PT, ~INR - Anti Coag Clinic 3.4 (0.9-1.1)
--- NOTE | 2025-02-02 09:56 | MHC.OFFVISCO ---
Intake Intake Visit Reasons: Anticoagulation Allergies clopidogrel [From PLAVIX] Allergy (Unknown, Verified 02/02/25 09:47) RASH Medication List - Last Reconciled 02/02/25 by Carolina Diaz RN acetaminophen ER 650 mg PO Q12H PRN ascorbic acid (vitamin C) 500 mg PO DAILY atorvastatin 20 mg PO DAILY B-complex with vitamin C 1 tab PO DAILY calcium carb-mag ox-zinc sulf 1 tab PO DAILY coenzyme Q10 10 mg PO TID ferrous sulfate 325 mg PO DAILY furosemide 20 mg PO DAILY metoprolol succinate ER 25 mg PO DAILY omega 8-utl-yiz-fish oil 1,000 (120-180) mg (Fish Oil) 1 cap PO DAILY saw palmetto 500 mg PO BID vitamin E 400 units PO DAILY warfarin (Jantoven) 2.5 tabs See Protocol PO MOTUWETHFRSA@0900 Nursing Note INR: 3.4 out of therapeutic range of 2-3 Medications and supplements reviewed Patient status: well Medications or supplements: no changes Diet: no changes Denies any signs and symptoms of bleeding or clotting or unusual bruising Bleeding, bruising, clotting discussed Nutritional guidance given: to have a serving of greens today Dose: decrease this week by 2.5mg then 2.5mg daily F/U INR Date: 4 weeks?? Patient verbalizing understanding of instructions given. Anti-Coag Initial Assessment Social Hx Patient Tobacco Use Status: Never used Tobacco alcohol intake: unknown Coding Level of Care Code Est Patient Level 1 Diagnoses Current use of anticoagulant therapy Z79.01 Results AMB INR Fingerstick AMB INR Fingerstick 3.4 Last Edit by Carolina Diaz RN on 02/02/25 09:56 interface delay Assessment & Plan Assessment & Plan (1) Current use of anticoagulant therapy: Code(s): Z79.01 - nursing home (current) use of anticoagulants Category: Medical
--- OUTSIDE RECORDS SUMMARY | 2025-02-02 10:20 | XMS_ITS | Encounter Summary ---
Author Organization [facility] Address [id number] [place] [phone] Care Team Providers Care Dress Cutter Name Role Phone Kirk Randle MD Primary Care Provider [phone] Encounter Details Date Type Department Care Team (Late Contact Info) Description 01/21/2025 Telephone Internal Medicine [facility] [address] [phone] Kirk Randle MD [address] [address] Social History Tobacco Use Types Packs/Day Years [...] as of this encounter Plan of Treatment Upcoming Encounters Date Type Department Care Team (Late Contact Info) Description 02/08/2025 9:30 AM EDT Office Visit Internal Medicine [facility] [address] [phone] Kirk Randle MD [address] [address] 03/01/2025 11:00 AM EDT Office Visit Internal Medicine [facility] [address] [phone] Kirk Randle MD [address] [address] 04/19/2025 10:10 AM EDT Office Visit [facility] [address] [place] [address] Virgie Trivedi, GILBERTO [address] [place] [address] [address] [place] [address] 07/14/2025 1:00 PM EST Appointment [facility] Ultrasound [address] [place] [phone] documented as of this encounter Visit Diagnoses Not on filedocumented in this encounter Additional Health Concerns Assessment Noted Time PHQ-9 Depression Total Score: 0 09/30/19 25 9:22 AM EST A fall risk assessment has been complete d for the patient 09/30/2024 9:20 AM EST documented as of this encounter Care Teams Dress Cutter Relationship Specialty Start Date End Date Kirk Randle MD 175 [facility] [address] [place] [address] PCP - General Internal Medicine 07/12/20 documented as of this encounter
== END 2025-02-02 10:00 | disposition home or self-care (01) ==
LOC: HO.ACS 09:44
PROVIDERS: PCP Internal Medicine; Visit Provider Internal Medicine Medical Oncology
DX: Z79.01 Long term (current) use of anticoagulants (principal)

== ENCOUNTER → 2025-02-02 09:44 | Outpatient (BNVA) | payer MEDICARE, SELFPAY | PROVIDERS: PCP Internal Medicine; Visit Provider Internal Medicine Medical Oncology | DX: I48.91 Unspecified atrial fibrillation (principal); Z79.01 Long term (current) use of anticoagulants; Z51.81 Encounter for therapeutic drug level monitoring | CPT/HCPCS: 85610; 99211 ==

== ENCOUNTER 2025-03-02 09:46 | Outpatient (AMB) | payer MEDICARE, SELFPAY ==
[2025-03-02 09:57] LABS: Prothrombin Time Whole Bld POC 30.5 sec (11.1-13.5); ~PT, ~INR - Anti Coag Clinic 2.5 (0.9-1.1)
--- NOTE | 2025-03-02 09:59 | MHC.OFFVISCO ---
Intake Intake Visit Reasons: Anticoagulation Allergies clopidogrel (From PLAVIX) Allergy (Unknown, Verified 03/02/25 09:50) RASH Medication List - Last Reconciled 03/02/25 by Carolina Diaz RN acetaminophen ER 650 mg PO Q12H PRN ascorbic acid (vitamin C) 500 mg PO DAILY atorvastatin 20 mg PO DAILY B-complex with vitamin C 1 tab PO DAILY calcium carb-mag ox-zinc sulf 1 tab PO DAILY coenzyme Q10 10 mg PO TID ferrous sulfate 325 mg PO DAILY furosemide 20 mg PO DAILY metoprolol succinate ER 25 mg PO DAILY omega 0-zhl-jhe-fish oil 1,000 (120-180) mg (Fish Oil) 1 cap PO DAILY saw palmetto 500 mg PO BID vitamin E 400 units PO DAILY warfarin (Jantoven) 2.5 tabs See Protocol PO MOTUWETHFRSA@0900 Nursing Note INR: 2.5 in therapeutic range of 2-3 Medications and supplements reviewed No changes in health, diet, medications, or supplements, Denies any signs and symptoms of bleeding or bruising or clotting. 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
== END 2025-03-02 10:01 | disposition home or self-care (01) ==
LOC: HO.ACS 09:46
PROVIDERS: PCP Internal Medicine; Visit Provider Internal Medicine Medical Oncology
DX: Z79.01 Long term (current) use of anticoagulants (principal)

== ENCOUNTER → 2025-03-02 09:46 | Outpatient (BNVA) | payer MEDICARE, SELFPAY | PROVIDERS: PCP Internal Medicine; Visit Provider Internal Medicine Medical Oncology | DX: I48.91 Unspecified atrial fibrillation (principal); Z79.01 Long term (current) use of anticoagulants; Z51.81 Encounter for therapeutic drug level monitoring | CPT/HCPCS: 85610; 99211 ==

== ENCOUNTER 2025-03-30 09:49 | Outpatient (AMB) | payer MEDICARE, SELFPAY ==
[2025-03-30 10:06] LABS: Prothrombin Time Whole Bld POC 41.7 sec (11.1-13.5); ~PT, ~INR - Anti Coag Clinic 3.5 (0.9-1.1)
--- NOTE | 2025-03-30 10:10 | MHC.OFFVISCO ---
Intake Intake Visit Reasons: Anticoagulation Allergies clopidogrel (From PLAVIX) Allergy (Unknown, Verified 03/30/25 10:01) RASH Medication List - Last Reconciled 03/30/25 by Carolina Diaz RN acetaminophen ER 650 mg PO Q12H PRN ascorbic acid (vitamin C) 500 mg PO DAILY atorvastatin 20 mg PO DAILY B-complex with vitamin C 1 tab PO DAILY calcium carb-mag ox-zinc sulf 1 tab PO DAILY coenzyme Q10 10 mg PO TID ferrous sulfate 325 mg PO DAILY furosemide 20 mg PO DAILY metoprolol succinate ER 25 mg PO DAILY omega 1-guo-oil-fish oil 1,000 (120-180) mg (Fish Oil) 1 cap PO DAILY saw palmetto 500 mg PO BID vitamin E 400 units PO DAILY warfarin (Jantoven) 2.5 tabs See Protocol PO AMADAETHGRETA@0900 Nursing Note INR: 3.5 out of therapeutic range of 2-3 Medications and supplements reviewed No changes in health, diet, medications, or supplements, Denies any signs and symptoms of bleeding or bruising or clotting. Bleeding, bruising, clotting discussed Nutritional guidance given to have a serving of greens today Dose: will hold a dose of 2.5mg then 2.5mg daily F/U INR: 4 weeks Patient verbalizes understanding of instructions given Anti-Coag Initial Assessment Social Hx Patient Tobacco Use Status: Never used Tobacco alcohol intake: unknown Coding Level of Care Code Est Patient Level 1 Diagnoses Current use of anticoagulant therapy Z79.01 Results AMB INR Fingerstick AMB INR Fingerstick 3.5 Last Edit by Carolina Diaz RN on 03/30/25 10:09 interface delay Assessment & Plan Assessment & Plan (1) Current use of anticoagulant therapy: 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
--- OUTSIDE RECORDS SUMMARY | 2025-03-30 10:35 | XMS_ITS | Clinical Summary ---
Author Organization [facility] [employer] Address [address] [facility] [place] [address] Phone Care Team Providers Care Manager Special Events Name Role Phone Kirk Randle MD Primary Care Provider [phone] Allergies Active Allergy Reactions Criticality Noted Date Comments Clopidogrel Rash 07/26/2010 Medications ADHESIVE TAPE TOP 1 each by Not [...] 3 (three) times a day. 11/02/19 Active medical supply, miscellaneous (MISCELLANEOUS MEDICAL SUPPLY [...] moderate pain. for up to 10 days. 04/19/20 23 Active fluticasone propionate (FLONASE) 50 mcg/actuation nasal spray Administer 2 sprays into each nostril 1 (one) time each day. for 360 days. 05/14/20 24 025 Active warfarin (COUMADIN) 5 mg tablet Take 1 tablet (5 mg total) by mouth. See Admin Instructions for 90 days. May cause heavy bleeding. Take at same time every day. Do not change dietary habits. 10/08/19 24 Active warfarin (COUMADIN) 5 mg tablet Take 1 tablet (5 mg total) by mouth 1 (one) time each day with dinner. See Admin Instructions. May cause heavy bleeding. Take at same time every day. Do not change dietary habits. [facility] directs coumadin instructions 90 tablet 11 10/20/19 25 Active atorvastatin (LIPITOR) 20 mg tablet TAKE ONE TABLET BY MOUTH EVERY DAY 90 tablet 1 12/17/19 25 Active metoprolol succinate (TOPROL-XL) 25 mg 24 hr tablet TAKE ONE TABLET BY MOUTH EVERY DAY 90 tablet 1 01/19/20 25 Active furosemide (LASIX) 20 mg tablet Take 1 tablet (20 mg total) by mouth 1 (one) time each day. 90 tablet 2 03/08/20 25 Active furosemide (LASIX) 20 mg tablet Take 1 tablet (20 mg total) by mouth 1 (one) time each day. 06/10/20 24 025 Discontin ued(Reord er) Active Problems Problem Noted Date Diagnosed Date Peripheral arterial disease ([facility] V24) 2022 Cardiomyopathy ([facility] V24, [facility] V28) 2021 Overview (08/04/2024): Last Assessment & [...] 12/12/2018 Overview (08/04/2024): R knee Atrial fibrillation ([facility] V24, CMS/HCC V28) 0 05/14/2018 Overview (08/04/2024): Jantoven/ warfarin Last Assessment & Plan: Patient presents in atrial fibrillation with slow ventricular response of 50 bpm. He denies palpitations and has been historically asymptomatic while in atrial fibrillation. He continues to be anticoagulated on Coumadin for stroke reduction. [id number] score of 5 for heart failure, hypertension, [...] (coronary artery disease) 05/14/2018 Overview (08/04/2024): Old PR; Stress test -ve 2010, treated in [facility] in 2003, stents put in. Last [...] Plan: Patient continues to follow closely with [facility] vascular surgery. Assessment & Plan (10/09/2024 [...] Encounters Date Type Department Care Team Description 03/15/2025 3:45 PM EDT Office Visit Internal Medicine - [place] [facility] [address] [place] [address] Kirk Randle MD Primary hypertension (Primary Dx); Cardiomyopathy, unspecified type (CMS/HCC V24, CMS/HCC V28); Hypercholesterolemi a; Atrial fibrillation, unspecified type (CMS/HCC V24, CMS/HCC V28); Dizziness 03/08/2025 2:00 PM EDT Treatment [facility] [address] [phone] Ara Gomez, OT Dizziness (Primary Dx); Benign paroxysmal positional vertigo, unspecified laterality 03/08/[address] 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 ) 02/17/2025 Telephone Internal Medicine [facility] [address] [phone] Abelardo Perez MA Lab Results 02/16/2025 10:32 AM EDT - 02/16/2025 11:59 PM EDT Hospital Encounter CT Scan - [address] [phone] Cardiomyopathy, unspecified type (CMS/HCC V24, CMS/HCC V28); Dizziness; Benign paroxysmal positional vertigo, unspecified laterality Discharge Disposition: Home or Self Care 02/12/2025 2:30 PM EDT Evaluation [facility] [address] [place] [phone] Ara Gomez OT Cardiomyopathy, unspecified type (CMS/HCC V24, CMS/HCC V28); Dizziness; Benign paroxysmal positional vertigo, unspecified laterality 02/12/2025 Plan of Care Documentation [facility] [address] [place] [phone] 02/08/2025 9:30 AM EDT Office Visit Internal Medicine [address] [phone] Kirk Randle MD Dizziness (Primary Dx); Cardiomyopathy, unspecified type (CMS/HCC V24, CMS/HCC V28); Benign paroxysmal positional vertigo, unspecified laterality 01/21/2025 Telephone Internal Medicine [facility] [address] [phone] Kirk Randle MD from Last 3 Months Immunizations Name Administration [...] PROCEDURE: HISTORICAL CARDIAC CATH KNEE ARTHROSCOPY PROCEDURE: WY ARTHROSCOPY AID TX SPINE&/FX KNEE W/O FIXJ OTHER SURGICAL HISTORY 05/19/2018 Right PROCEDURE: WY ENDOVEN ABLTJ INCMPTNT VEIN XTR LASER 1ST VEIN TOTAL KNEE ARTHROPLASTY 10/07/2018 Right PROCEDURE: HISTORICAL TOTAL KNEE REPLACE; COMMENT: [facility] Dr[facility] EYE SURGERY Bilateral PROCEDURE: HISTORICAL EYE SURGERY; COMMENT: cataracts BYPASS GRAFT 08/16/2022 Right PROCEDURE: WY AMPUTATION TOE METATARSOPHALANGEAL JOINT; COMMENT: R 5th toe OTHER SURGICAL HISTORY 08/16/2022 Right PROCEDURE: WY INCISION BONE CORTEX FOOT; COMMENT: R 5th metatarsal OTHER SURGICAL HISTORY 10/23/2022 PROCEDURE: WY SLCTV CATHJ 3RD+ ORD SLCTV ABDL PEL/LXTR BRNCH OTHER SURGICAL HISTORY 10/23/2022 PROCEDURE: X-RAY EXAM OF ARM/LEG ARTERY OTHER SURGICAL HISTORY 10/23/2022 PROCEDURE: ULTRASOUND GUIDANCE FOR VASCULAR AC OTHER SURGICAL HISTORY 07/09/2023 PROCEDURE: WY REVSC OPN/PRQ TIB/RON W/ANGIOPLASTY UNI OTHER SURGICAL HISTORY 07/09/2023 PROCEDURE: ULTRASOUND GUIDANCE FOR VASCULAR AC Medical History Medical History Date Comments Atrial fibrillation (CMS/HCC V24, CMS/HCC V28) DX:Atrial fibrillation (HCC) Coronary artery disease DX:Coron randy artery disease; COMMENT: Old PR; Stress test -ve 2010, treated in [facility] in 2004, stents put in. Cataracts, [...] Information Value Date Recorded Sex Assigned at Male 02/08/2025 10:30 AM EDT Legal Sex Male 9:42 AM EST Gender Identity Male 02/08/2025 10:30 AM EDT Sexual Orientation Straight 02/08/2025 10 :30 AM EDT Obstetrics History Last Filed Vital Signs Vital Sign Reading Time Taken Comments Blood Pressure 126/60 03/15/2025 3:39 PM EDT Pulse 69 03/15/2025 3:39 PM EDT Temperature 35.6 C (96 F) 03/15/2025 3:39 PM EDT Respiratory Rate - - Oxygen Saturation 98% 03/15/2025 3:39 PM EDT Inhaled Oxygen Concentration - - Weight 96 kg (211 lb 9.6 oz) 03/15/2025 3:39 PM EDT Height 190.5 cm (6' 3 ) 10/09/2024 10:14 AM EST Body Mass Index 26.45 10/09/2024 10:14 AM EST Plan of Treatment Upcoming Encounters Date Type Department Care Team (Late st Contact Info) Description 04/19/2025 10:10 AM EDT Office Visit [facility] [address] [place] [address] Dr [address] [place] [phone] Virgie Trivedi NP [address] [place] [address] Dr [address] [place] [address] 07/14/2025 1:00 PM EST Appointment [facility] [address] [place] [phone] 09/14/2025 11:00 AM EST Office Visit Internal Medicine - [place] [facility] [address] [place] [phone] Kirk Randle MD 175 [facility] [address] [place] [address] Health Maintenance Due Date Last Done Comments DTaP,Tdap,and Td Vaccines (1 - Tdap) 1961 Zoster Vaccines (1 of 2) 01/02/1992 RSV Immunization Adult Patients (1 - 1-dose 75+ series) 2017 Social Influencers of Health Screening 08/18/2022 COVID-19 Vaccine ( season) 2024 06/08/2024, 06/14/2023, 07/17/2022, Additional history exists Influenza Vaccine (#1) 2025 , 06/14/2023, 07/03/2022, Additional history exists Falls Risk Assessment 09/30/2025 09/30/2024 Hypertension/CHF/CAD Annual BMP Blood Test 09/30/2025 09/30/2024, 05/23/2023 Medicare Annual Wellness Visit 09/30/2025 09/30/2024 Cholesterol Screening (Lipid Panel) 09/30/2029 09/30/2024, 12/04/2021 Pneumococcal Vaccine: 50+ Years Completed 07/30/2017, 06/21/2015 Depression Screening Completed 09/30/2024 HIB Vaccines Aged Out No longer eligi [...] on patient's age to complete this topic Goals Goal Patient Goal Type Associated Problems Recent Progress Patient-Stated? Author OT vestib 2 visits General No change(2024 2:12 PM EDT) No Ara Gomez OT Note: 1) Pt will return demo HEP/maintain symptom log MET 2) Pt will report no signif vertiginous symptoms w/ positional testing all canals PERSISTENT LIGHTHEADED/HEAD COLLAZO SENSATION, not true vertigo Procedures Procedure Name Priority Date/Time Associated Diagnosis Comments CT HEAD WO CONTRAST Routine 02/16/2025 1 0:46 AM EDT Cardiomyopathy, unspecified type (CMS/HCC V24, CMS/HCC V28) Dizziness Benign paroxysmal positional vertigo, unspecified laterality COMPREHENSIVE METABOLIC PANEL Routine 09/30/2024 10:13 AM EST Cardiomyopathy, unspecified type (CMS/HCC V24, CMS/HCC V28) Primary hypertension Hypercholesterolemi a LIPID PANEL WITH REFLEX TO DIRECT LDL Routine 09/30/2024 10:13 AM EST Cardiomyopathy, unspecified type (CMS/HCC V24, CMS/HCC V28) Primary hypertension Hypercholesterolemi a from Last 3 Months or Most Recently Relevant to Health Maintenance Results * CT Head wo Contrast (02/16/2025 10:46 AM EDT) Anatomical Region Laterality Modality Head and Neck Computed Tomogra phy 02/16/2025 11:4 0 AM EDT Narrative 02/16/2025 11:[address] of the head without intravenous contrast. HISTORY: Nonspecific dizziness. Comparison with prior head CT obtained on 04/02/2021. There is a mild sulcal ventricular prominence probably reflecting age related atrophic changes. There is no evidence of midline shift, extra or intra-axial blood fluid collections. There is no major territorial infarctions. There is arm interval enlargement of the hypodensity in the subcortical left frontal lobe. There are multiple foci of hyper density in the deep and periventricular white matter of both cerebral hemispheres most likely representing areas of chronic infarctions, as well as chronic small vessel ischemia. Previously noted thumb of each hypodensity in the left cerebellar hemisphere also unchanged. Ventricular system is symmetric. Fourth ventricle and basal cisterns are midline and patent. Again noted are prominent atherosclerotic calcifications in the arm cavernous portions of the internal carotid arteries. Visualized portions of the paranasal sinuses and mastoid processes are unremarkable. CONCLUSIONS: White matter hypodensities in both cerebral hemispheres as well as left cerebellar hemisphere unchanged. Sulcal ventricular prominence, probably age related atrophy. No intracranial hemorrhage or territorial infarctions. Atherosclerotic changes. -------- FINAL REPORT -------- Dictated By: Marielos Pabon Dictated Date: 02/16/2025 11:40 ET Assigned Physician: Marielos Pabon Reviewed and Electronically Signed By: Marielos Pabon Signed Date: 02/16/2025 11:46 ET Workstation ID: [id number] Transcribed By: Self Edit Transcribed Date: 02/16/2025 11:40 ET Procedure Note Marielos Pabon MD - 02/16/2025 CT of the head without intravenous contrast. HISTORY: Nonspecific dizziness. Comparison with prior head CT obtained on 04/02/2021. There is a mild sulcal ventricular prominence probably reflecting agerelated atrophic changes. There is no evidence of midline shift, extra orintra-axial blood fluid collections. There is no major territorialinfarctions. There is arm interval enlargement of the hypodensity in thesubcortical left frontal lobe. There are multiple foci of hyper density inthe deep and periventricular white matter of both cerebral hemispheresmost likely representing areas of chronic infarctions, as well as chronicsmall vessel ischemia. Previously noted thumb of each hypodensity in theleft cerebellar hemisphere also unchanged. Ventricular system issymmetric. Fourth ventricle and basal cisterns are midline and patent.Again noted are prominent atherosclerotic calcifications in the armcavernous portions of the internal carotid arteries. Visualized portionsof the paranasal sinuses and mastoid processes are unremarkable. CONCLUSIONS: White matter hypodensities in both cerebral hemispheres aswell as left cerebellar hemisphere unchanged. Sulcal ventricularprominence, probably age related atrophy. No intracranial hemorrhage orterritorial infarctions. Atherosclerotic changes. -------- FINAL REPORT -------- Dictated By: Marielos Pabon Dictated Date: 02/16/2025 11:40 ET Assigned Physician: Marielos Pabon Reviewed and Electronically Signed By: Marielos Pabon Signed Date: 02/16/2025 11:46 ET Workstation ID: [id number] Transcribed By: Self Edit Transcribed Date: 02/16/2025 11:40 ET Kirk Randle MD IM CT PROCEDURES Final Result * Lipid panel with reflex to direct LDL (09/30/2024 10:13 AM EST) Cholesterol 117 0 - 200 mg/dL LAB CHEMISTRY METHOD 09/30/2024 1:14 PM [facility] Triglycerides 77 0 - 150 mg/dL LAB CHEMISTRY METHOD 09/30/2024 1:14 PM [facility] HDL 48 >=40 mg/dL LAB CHEMISTRY METHOD 09/30/2024 1:14 PM [facility] LDL Calculated 54 0 - 100 mg/dL LAB CHEMISTRY METHOD 09/30/2024 1:14 PM [facility] VLDL Cholesterol Ric 15.4 mg/dL LAB CHEMISTRY METHOD 09/30/2024 1:14 PM [facility] Non HDL Chol. (LDL+VLDL) 69 <145 mg/dL LAB CHEMISTRY METHOD 09/30/2024 1:14 PM [facility] Chol/HDL Ratio 2.4 0.0 - 4.4 LAB CHEMISTRY METHOD 09/30/2024 1:14 PM [facility] Blood Venous blood specimen / Unknown Venipuncture / Unknown 09/30/2024 10:13 AM EST 09/30/2024 11:01 AM EST us Kirk Randle MD LAB BLOOD ORDERABLES Final Resul t [facility] [address] [place] [address], [place] [phone] * (ABNORMAL) Comprehensive metabolic panel (09/30/2024 10:13 AM EST) Sodium 140 133 - 145 mmol/L LAB CHEMISTRY METHOD 09/30/2024 1:14 PM EST [facility] Potassium 4.2 3.5 - 5.5 mmol/L LAB CHEMISTRY METHOD 09/30/2024 1:14 PM [facility] Chloride 106 96 - 110 mmol/L LAB CHEMISTRY METHOD 09/30/2024 1:14 PM [facility] CO2 27 21 - 32 mmol/L LAB CHEMISTRY METHOD 09/30/2024 1:14 PM [facility] Anion Gap 7 3 - 11 LAB CHEMISTRY METHOD 09/30/2024 1:14 PM [facility] Glucose 92 70 - 100 mg/dL LAB CHEMISTRY METHOD 09/30/2024 1:14 PM [facility] BUN 27(H) 5 - 25 mg/dL LAB CHEMISTRY METHOD 09/30/2024 1:14 PM [facility] Creatinine 1.23 0.70 - 1.30 mg/dL LAB CHEMISTRY METHOD 09/30/2024 1:14 PM [facility] eGFR 59(L) >=60 mL/min/1. 73m2 LAB CHEMISTRY METHOD 09/30/2024 1:14 PM [facility] Comment:Calculation based on the Chronic Kidney Disease Epidemiology Collaboration (CKD-EPI) equation refit without adjustment for race. BUN/Creatinine Ratio 22.0 LAB CHEMISTRY METHOD 09/30/2024 1:14 PM [facility] Calcium 9.9 8.5 - 10.5 mg/dL LAB CHEMISTRY METHOD 09/30/2024 1:14 PM [facility] AST (SGOT) 42 10 - 42 unit/L LAB CHEMISTRY METHOD 09/30/2024 1:14 PM [facility] ALT (SGPT) 35 10 - 60 unit/L LAB CHEMISTRY METHOD 09/30/2024 1:14 PM [facility] Alkaline Phosphatase 97 42 - 121 unit/L LAB CHEMISTRY METHOD 09/30/2024 1:14 PM [facility] Total Protein 7.1 6.0 - 8.0 g/dL LAB CHEMISTRY METHOD 09/30/2024 1:14 PM [facility] Albumin 4.0 3.2 - 5.0 g/dL LAB CHEMISTRY METHOD 09/30/2024 1:14 PM [facility] Total Bilirubin 1.2 0.0 - 1.4 mg/dL LAB CHEMISTRY METHOD 09/30/2024 1:14 PM [facility] Blood Venous blood specimen / Unknown Venipuncture / Unknown 09/30/2024 10:13 AM EST 09/30/2024 11:01 AM EST us Kirk Randle MD LAB BLOOD ORDERABLES Final Resul t [facility] [address] [place] [address], from Last 3 Months or Most Recently Relevant to Health Maintenance Insurance [employer] Advance Directives Documents on File Type Date Recorded 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
--- OUTSIDE RECORDS SUMMARY | 2025-03-30 10:35 | XMS_ITS | Patient Health Record ---
Author Organization 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, bilateral legs (I70.203) Diagnosis 4 Other hammer toe(s) (acquired), right foot (M20.41) Diagnosis 5 Non-pressure chronic ulcer of other part of right foot with fat layer exposed (L97.512) Diagnosis 6 Venous insufficiency (I87.2) Diagnosis 7 Pressure injury of r ight ankle, stage 1 (L89.511) Diagnosis 8 Ischemic ulcer of le ft foot, limited to breakdown of skin (L97.521) Diagnosis 9 Ischemic ulcer of le ft heel, limited to breakdown of skin (L97.421) Diagnosis 10 Ischemic ulcer of ri ght heel, limited to breakdown of skin (L97.411) Referring Provider First Name Kirk Referring Provider Last Name Jer Referred Organization [facility] Jamal Referred Provider Anuradha Hermosillo Referred Address [address] [facility],[place], [place],[address], Referred Provider Specialty Podiatry Referral Priority Routine Medications Medication SIG (Take, Route, Frequency, Duration) Notes Start Date End Date Status Simvastatin 40 MG 1 tablet in the even ing Orally Once a day; Duration: 30 day(s) Active Metoprolol Succinate ER 25 MG 1 tablet Orally Once a day; Duration: 30 day(s) Active Multivitamin Active Ibuprofen 800 MG 1 tablet every Orall y Three times a day; Duration: 14 days 07/04/2015 Not-Taking Furosemide Active Cipro 500 MG 1 tablet Orally Twic e a day; Duration: 10 day(s) 08/24/2015 Not-Taking Fish Oil 1200 MG 1 capsule Orally Onc e a day; Duration: 30 day(s) Active Ibuprofen 800 MG 1 tablet every Orall y Three times a day; Duration: 14 days Not-Taking Aspirin 81 MG 1 tablet Orally Once a day; Duration: 30 day(s) Active Lisinopril 10 MG 1 tablet Orally Once a day; Duration: 30 day(s) Not-Taking Gym Note . . . Medical from gym ; he has been disabled from 07/27/15 thru 09/16/15 09/14/2015 Not-Taking Mupirocin 2 % 1 application Externally Twice a day to any open cuts; Duration: 30 days 10/20/2024 Active Ammonium Lactate 12 % 1 application Externally to affected areas of dry skin to feet except for between the toes Twice a day; Duration: 30 days Active Ammonium Lactate 12 % 1 application to affected area Externally Twice a day to dry areas of skin on feet; Duration: 30 days Active Warfarin Sodium 5 MG 1 tablet Orally Two times a Week; Duration: 30 day(s) Active Immunizations Vaccine Route Administration Date Status Comme nts Influenza Unknown 06/30/2022 Administered Influenza Unknown 06/09/2024 Administered COVID-19 Moderna Vaccine Unknown 06/30/2022 Administered 1st 10/11/2020,11/08/202020,2021 Social History Tobacco Use: Social History Observation [...] W/U Status Risk Notes Problem Tinea unguium (323706145) Tinea unguium (B35.1) Active confirmed Problem Non-pressure chronic ulcer of other part of right foot with fat layer exposed (L97.512) Active confirmed Problem Bilateral atherosclerosis of arteries of lower limbs (disorder) (0044669621711625 7) Unspecified atherosclerosis of [place] arteries of extremities, bilateral legs (I70.203) Active confirmed Problem Acquired hammer toe of right foot (9550582285957055 ) Other hammer toe(s) (acquired), right foot (M20.41) Active confirmed Problem Acquired hammer toe of left foot (7056610497865890 ) Other hammer toe(s) (acquired), left foot (M20.42) Active confirmed Problem Venous insufficiency of leg (disorder) (598494569) Venous insufficiency (I87.2) Active confirmed Problem Pressure injury of right ankle, stage 1 (L89.511) Active confirmed Problem Ischemic ulcer o f left foot, limited to breakdown of skin (L97.521) Active confirmed Problem Ischemic ulcer o f right heel, limited to breakdown of skin (L97.411) Active confirmed Problem Ischemic ulcer o f left heel, limited to breakdown of skin (L97.421) Active confirmed Response to treatment Vital Signs Blood pressure diastolic 75 mm Hg 02/23/2025 Height 6 ft 3 in in 02/23/2025 Blood pressure systolic 115 mm Hg 02/23/2025 Weight 217 lbs 02/23/2025 BMI 27.12 kg/m2 02/23/2025 Encounters Encounter Location Date Provider Diagnosis [facility] [address] 05/22/2024 Anuradha Hermosillo Tinea unguium B35.1 ; Unspecified atherosclerosis of [place] arteries of extremities, bilateral legs I70.203 ; Pain in right toe(s) M79.674 ; Pain in left toe(s) M79.675 ; Other hammer toe(s) (acquired), left foot M20.42 ; Other hammer toe(s) (acquired), right foot M20.41 and Venous insufficiency I87.[address] [facility] [address] 08/21/2024 Anuradha Hermosillo Tinea unguium B35.1 ; Unspecified atherosclerosis of [place] arteries of extremities, bilateral legs I70.203 ; Pain in right toe(s) M79.674 ; Pain in left toe(s) M79.675 ; Other hammer toe(s) (acquired), left foot M20.42 ; Other hammer toe(s) (acquired), right foot M20.41 ; Venous insufficiency I87.2 and Ischemic ulcer of left foot, limited to breakdown of skin L97.[address] [address] 10/20/2024 Anuradha Perica Ischemic ulcer of le ft heel, limited to breakdown of skin L97.421 ; Xerosis of skin L85.3 ; Unspecified atherosclerosis of [place] arteries of extremities, bilateral legs I70.203 ; Other hammer toe(s) (acquired), left foot M20.42 ; Other hammer toe(s) (acquired), right foot M20.41 and Ischemic ulcer of right heel, limited to breakdown of skin L97.[address] [address] 11/20/2024 Anuradha Hermosillo Ischemic ulcer of le ft heel, limited to breakdown of skin L97.421 ; Xerosis of skin L85.3 ; Unspecified atherosclerosis of [place] arteries of extremities, bilateral legs I70.203 ; Other hammer toe(s) (acquired), left foot M20.42 and Other hammer toe(s) (acquired), right foot M20.[address] [address] 12/22/2024 Anuradha Hermosillo Unspecified atherosclerosis of [place] arteries of extremities, bilateral legs I70.203 ; Xerosis of skin L85.3 ; Tinea unguium B35.1 ; Pain in right toe(s) M79.674 ; Pain in left toe(s) M79.675 ; Other hammer toe(s) (acquired), left foot M20.42 ; Other hammer toe(s) (acquired), right foot M20.41 and Venous insufficiency I87.[address] [address] 02/23/2025 Anuradha Hermosillo Unspecified atherosclerosis of [place] arteries of extremities, bilateral legs I70.203 ; Tinea unguium B35.1 ; Pain in right toe(s) M79.674 and Pain in left toe(s) M79.[address] [address] 10/16/2024 Anuradha Hermosillo [address] [address] 10/21/2024 Anuradha Hermosillo [address] [address] 11/02/2024 Anuradha Hermosillo Assessments Encounter Date Diagnosis (ICD Code) Assessment Notes Treatment Notes Treatment Clinical Notes Section Notes 05/22/2024 Tinea unguium (ICD-10 - B35.1) 05/22/2024 Unspecified atherosclerosis of [place] arteries of extremities, bilateral legs (ICD-10 - [...] CARE INSTRUCTIONS. pdf) 12/22/2024 Unspecified atherosclerosis of [place] arteries of extremities, bilateral legs (ICD-10 - I70.203) 12/22/2024 Xerosis of skin (ICD-10 - L85.3) 02/23/2025 Tinea unguium (ICD-10 - B35.1) 02/23/2025 Unspecified atherosclerosis of [place] arteries of extremities, bilateral legs (ICD-10 - I70.203) 02/23/2025 Pain in right toe(s) (ICD-10 - M79.674) 12/22/2024 Tinea unguium (ICD-10 - B35.1) 11/20/2024 Unspecified atherosclerosis of [place] arteries of extremities, bilateral legs (ICD-10 - I70.203) 08/21/2024 Unspecified atherosclerosis of [place] arteries of extremities, bilateral legs (ICD-10 - I70.203) 10/20/2024 Unspecified atherosclerosis of [place] arteries of extremities, bilateral legs (ICD-10 - I70.203) 08/21/2024 Pain in right toe(s) (ICD-10 - M79.674) 05/22/2024 Pain in right toe(s) (ICD-10 - M79.674) 05/22/2024 Pain in left toe(s) (ICD-10 - M79.675) 08/21/2024 Pain in left toe(s) (ICD-10 - M79.675) 10/20/2024 Other hammer toe(s) (acquired), left foot (ICD-10 - M20.42) 12/22/2024 Pain in right toe(s) (ICD-10 - M79.674) 02/23/2025 Pain in left toe(s) (ICD-10 - M79.675) 11/20/2024 Other hammer toe(s) (acquired), left foot [...] - M20.41) 08/21/2024 Other hammer toe(s) (acquired), right foot (ICD-10 - M20.41) 10/20/2024 Ischemic ulcer of right heel, limited to breakdown of skin (ICD-10 - L97.411) 12/22/2024 Other hammer toe(s) (acquired), left foot (ICD-10 - M20.42) 12/22/2024 Other hammer toe(s) (acquired), right foot (ICD-10 - M20.41) 08/21/2024 Venous insufficiency (ICD-10 - I87.2) 05/22/2024 Venous insufficiency (ICD-10 - I87.2) 08/21/2024 Ischemic [...] X ray : Foot, left 2V 09/14/2015 20937-UPAMIFW NAIL, 6 OR MORE 11/16/2015 83342-FUAQZSQ NAIL, 6 OR MORE 05/16/2016 15983-RIEDNGM NAIL, 6 OR MORE 08/23/2016 89643-UEHJILZ NAIL, 6 OR MORE 12/05/2016 48785-WGXDZZT NAIL, 6 OR MORE 03/06/2017 87019-TCWWJES NAIL, 6 OR MORE 07/03/2017 87521-MNVIFGK NAIL, 6 OR MORE 03/10/2015 95173-JYQYCGM NAIL, 6 OR MORE 06/13/2015 38438-QRUAGAL NAIL, 6 OR MORE 10/01/2013 96868-WLYYEZD NAIL, 6 OR MORE 01/13/2015 29827-CJBRYFN NAIL, 6 OR MORE 06/30/2018 80608-KFZQKWC NAIL, 6 OR MORE 11/04/2017 23856-MFLRJGH NAIL, 6 OR MORE 03/05/2018 35030-Drtt Destruction, 1-14 01/27/2015 70860-Plgs Destruction, 1-14 01/13/2015 02359-Wgnf Destruction, 1-14 03/10/2015 56155-Akdn Destruction, 1-14 06/13/2015 92547-Myeudyuh Plate 06/13/2015 62767-Hewedmip Plate 03/10/2015 81963-Vgdhylgt Plate 06/30/2018 21396- Debride <25 sq cm 03/10/2015 67359- Debride <25 sq cm 01/27/2015 71557- Debride <25 sq cm 08/24/2015 95505- Debride <25 sq cm 09/05/2015 72340- Debride <25 sq cm 09/14/2015 53065-JDREYGX SKIN/TISSUE 01/13/2015 69734-IHPIFDX SKIN/TISSUE 07/20/2015 22795-ZBRJKIL SKIN/TISSUE 06/27/2015 83326-ECLBXYQ SKIN/TISSUE 07/04/2015 37741-LTONOSY SKIN/TISSUE 10/17/2022 98534-JSPG SKIN LESIONS, OVER 4 11/15/19 21 53859-ZUEH SKIN LESIONS, OVER 4 03/16/20 21 74418-ZISQ SKIN LESIONS, OVER 4 10/17/19 23 90959-KSNN SKIN LESIONS, 2 TO 4 06/30/20 18 13484-WAZP SKIN LESIONS, 2 TO 4 03/05/20 18 09310-QOWZ SKIN LESIONS, 2 TO 4 11/25/19 19 32137-YJQV SKIN LESIONS, 2 TO 4 03/30/20 19 15701-THEQ SKIN LESIONS, 2 TO 4 07/20/20 19 48266-AIST SKIN LESIONS, 2 TO 4 11/18/19 34736-UZKL SKIN LESIONS, 2 TO 4 03/21/20 20 90438-EGUH SKIN LESIONS, 2 TO 4 07/20/20 20 98805-JQGE SKIN LESIONS, 2 TO 4 02/28/20 23 81950-DVTI SKIN LESIONS, 2 TO 4 05/16/20 16 65516-VYSD SKIN LESIONS, 2 TO 4 11/16/19 16 05522-BAJA SKIN LESIONS, 2 TO 4 11/04/19 18 48320-MSFX SKIN LESIONS, 2 TO 4 07/03/20 17 25011-GFMG SKIN LESIONS, 2 TO 4 12/06/19 17 21886-JQFO SKIN LESIONS, 2 TO 4 03/06/20 17 64671-YGVH SKIN LESIONS, 2 TO 4 08/23/20 16 37253-XGBUGHDB OF HEMATOMA/FLUID 023 Next Appt Details Provider Name:Anuradha Johnson Yamileth ingris, 05/07/2025 12:30:00 PM, [address] [facility], [place], [address], Insurance Providers Payer Name Payer Address Payer Phone Subscriber Number Group Number Insured Name Patient Relationship to Insured Coverage Start Date Coverage End Date [facility] [address] [place] [address] 117[address] [id number] Vladimir Flynn Self - patient is the [...] center left eye cataract surger y 01/22/2017 [facility] [place] ER pt passed out for two seconds, lab work was done everything came out fine. 04/2016
== END 2025-03-30 10:15 | disposition home or self-care (01) ==
LOC: HO.ACS 09:49
PROVIDERS: PCP Internal Medicine; Visit Provider Internal Medicine Medical Oncology
DX: Z79.01 Long term (current) use of anticoagulants (principal)

== ENCOUNTER → 2025-03-30 09:49 | Outpatient (BNVA) | payer MEDICARE, SELFPAY | PROVIDERS: PCP Internal Medicine; Visit Provider Internal Medicine Medical Oncology | DX: I48.91 Unspecified atrial fibrillation (principal); Z79.01 Long term (current) use of anticoagulants; Z51.81 Encounter for therapeutic drug level monitoring | CPT/HCPCS: 85610; 99211 ==

== ENCOUNTER 2025-04-27 09:36 | Outpatient (AMB) | payer MEDICARE, SELFPAY ==
--- NOTE | 2025-04-27 10:07 | MHC.OFFVISCO ---
Intake Intake Visit Reasons: Anticoagulation Allergies clopidogrel (From PLAVIX) Allergy (Unknown, Verified 04/27/25 09:48) RASH Medication List - Last Reconciled 04/27/25 by Pat Sepulveda RN acetaminophen ER 650 mg PO Q12H PRN ascorbic acid (vitamin C) 500 mg PO DAILY atorvastatin 20 mg PO DAILY B-complex with vitamin C 1 tab PO DAILY calcium carb-mag ox-zinc sulf 1 tab PO DAILY coenzyme Q10 10 mg PO TID ferrous sulfate 325 mg PO DAILY furosemide 20 mg PO DAILY metoprolol succinate ER 25 mg PO DAILY omega 1-pha-uwn-fish oil 1,000 (120-180) mg (Fish Oil) 1 cap PO DAILY saw palmetto 500 mg PO BID vitamin E 400 units PO DAILY warfarin (Jantoven) 2.5 tabs See Protocol PO [email or web address]@0900 Nursing Note NO CP,SOB,DIET/MED CHANGES. HOLD WARFAIN TODAY THEN CONTINUE 2.5MGM DAILY AND FOLLOW-UP IN 4 WEEKS. CALL TO TO REQUEST SCRIPT CHANGE TO 2.5MGM WARFARIN TABLETS. GOOD UNDERSTANDING OF DOSING INSTR. Anti-Coag Initial Assessment Social Hx Patient Tobacco Use Status: Never used Tobacco alcohol intake: unknown Coding Level of Care Code Est Patient Level 1 Diagnoses Current use of anticoagulant therapy Z79.01 Results AMB INR Fingerstick AMB INR Fingerstick 3.9 Last Edit by Pat Sepulveda RN on 04/27/25 10:02 Assessment & Plan Assessment & Plan (1) Current use of anticoagulant therapy: Code(s): Z79.01 - skilled nursing (current) use of anticoagulants Category: Medical
--- OUTSIDE RECORDS SUMMARY | 2025-04-27 10:41 | XMS_ITS | Encounter Summary ---
Author Organization [facility] Address [address] [place] [address] Care Team Providers Care Fibrous Plasterer Name Role Phone Kirk Randle MD Primary Care Provider [phone] Reason for Visit * Reason Onset Date Comments Call from Coumadin [facility] 04/27/2025 Encounter Details Date Type Department Care Team (Late st Contact Info) Description 04/27/2025 Telephone [facility] Cardiology [address] [place] [address] Ced Victoria MD [address] [place] [address] [address] [place], [place] [address] Call from [facility] Social History Tobacco Use Types Packs/Day Years Used Date Smoking Tobacco: Never Smokeless Tobacco: Never Alcohol Use Standard Drinks/Week Comments Yes 0 (1 standard drink = 0.6 oz pur e alcohol) rarely Sex and Gender Information Value Date Recorded Sex Assigned at Male 02/08/2025 10:30 AM EDT Legal Sex Male 9:42 AM EST Gender Identity Male 02/08/2025 10:30 AM EDT Sexual Orientation Straight 02/08/2025 10 :30 AM EDT documented as of this encounter Progress Notes * Barb Veras MA - 04/27/2025 10:33 AM EDT Ok to do? * Aretha Sue MA - 04/27/2025 10:16 AM EDT Nurse Veronica from [facility] called requesting a Warfarin script change. Veronica asked if the prescription Warfarin can be changed from 5mgs to 2.5mgs one tablet daily and sent to patient pharmacy [facility] [place]. Veronica can be reached for further questions [phone]. documented in this encounter Plan of Treatment Upcoming Encounters Date Type Department Care Team (Late st Contact Info) Description 07/14/2025 1:00 PM EST Appointment [facility] Ultrasound [address] [place] [phone] 09/14/2025 11:00 AM EST Office Visit Internal Medicine - [place] [address] [address] Kirk Randle MD [address] [address] documented as of this encounter Goals Goal Patient Goal Type Associated Problems Recent Progress Patient-Stated? Author OT vestib 2 visits General No change(2024 2:12 PM EDT) No Ara Gomez OT Note: 1) Pt will return demo HEP/maintain symptom log MET 2) Pt will report no signif vertiginous symptoms w/ positional testing all canals PERSISTENT LIGHTHEADED/HEAD COLLAZO SENSATION, not true vertigo documented as of this encounter Visit Diagnoses Not on filedocumented in this encounter Additional Health Concerns Assessment Noted Time PHQ-9 Depression Total Score: 0 09/30/19 25 9:22 AM EST A fall risk assessment has been complete d for the patient 09/30/2024 9:20 AM EST documented as of this encounter Care Teams Fibrous Plasterer Relationship Specialty Start Date End Date Kirk Randle MD [address] [address] PCP - General Internal Medicine 07/12/20 documented as of this encounter
--- OUTSIDE RECORDS SUMMARY | 2025-04-27 10:41 | XMS_ITS | Patient Health Record ---
Author Organization [facility] Ariel Llamasley Address [address] [place] [address] Care Team Providers Care Blackjack Dealer Name Role Phone Kirk Randle MD Primary Care Provider Unavailab Anuradha Hobbs Unavailable [phone] Allergies Allergen (clinical drug ingredient) Drug/Non Drug Allergy documented on EMR Reaction Allergy Type Onset Date Status clopidogrel Plavix rash Drug Allergy Activ e Reason For Referral Diagnosis 1 Tinea unguium (B35.1 ) Diagnosis 2 Other hammer toe(s) (acquired), left foot (M20.42) Diagnosis 3 Unspecified atherosc lerosis of [place] arteries of extremities, bilateral legs (I70.203) Diagnosis [...] Referring Provider Last Name Jer Referred Organization [facility] Jamal Referred Provider Anuradha Hermosillo Referred Address [address] [facility],[place], [place],[address], Referred Provider Specialty Podiatry Referral Priority Routine [...] W/U Status Risk Notes Problem Tinea unguium (392700782) Tinea unguium (B35.1) Active confirmed Problem Non-pressure chronic ulcer of other part of right foot with fat layer exposed (L97.512) Active confirmed Problem Bilateral atherosclerosis of arteries of lower limbs (disorder) (0690823618458238 7) Unspecified atherosclerosis of [place] arteries of extremities, bilateral legs (I70.203) Active confirmed Problem Acquired hammer toe of right foot (1939225823784489 ) Other hammer toe(s) (acquired), right foot (M20.41) Active confirmed Problem Acquired hammer toe of left foot (1016520814372624 ) Other hammer toe(s) (acquired), left foot (M20.42) Active confirmed Problem Venous insufficiency of leg (disorder) (441610736) Venous insufficiency (I87.2) Active confirmed Problem Pressure [...] 02/23/2025 Encounters Encounter Location Date Provider [facility] [address] 05/22/2024 Anuradha Hermosillo Tinea unguium B35.1 ; Unspecified atherosclerosis of [place] arteries of extremities, bilateral legs I70.203 ; Pain in right toe(s) M79.674 ; Pain in left toe(s) M79.675 ; Other hammer toe(s) (acquired), left foot M20.42 ; Other hammer toe(s) (acquired), right foot M20.41 and Venous insufficiency I87.[address] [facility] [address] 08/21/2024 Anuradha Hermosillo Tinea unguium B35.1 ; Unspecified atherosclerosis of [place] arteries of extremities, bilateral legs I70.203 ; Pain in right toe(s) M79.674 ; Pain in left toe(s) M79.675 ; Other hammer toe(s) (acquired), left foot M20.42 ; Other hammer toe(s) (acquired), right foot M20.41 ; Venous insufficiency I87.2 and Ischemic ulcer of left foot, limited to breakdown of skin L97.[address] [address] 10/20/2024 Anuradha Perica Ischemic ulcer of le ft heel, limited to breakdown of skin L97.421 ; Xerosis of skin L85.3 ; Unspecified atherosclerosis of [place] arteries of extremities, bilateral legs I70.203 ; Other hammer toe(s) (acquired), left foot M20.42 ; Other hammer toe(s) (acquired), right foot M20.41 and Ischemic ulcer of right heel, limited to breakdown of skin L97.[address] [address] 11/20/2024 Anuradha Hermosillo Ischemic ulcer of le ft heel, limited to breakdown of skin L97.421 ; Xerosis of skin L85.3 ; Unspecified atherosclerosis of [place] arteries of extremities, bilateral legs I70.203 ; Other hammer toe(s) (acquired), left foot M20.42 and Other hammer toe(s) (acquired), right foot M20.[address] [address] 12/22/2024 Anuradha Hermosillo Unspecified atherosclerosis of [place] arteries of extremities, bilateral legs I70.203 ; Xerosis of skin L85.3 ; Tinea unguium B35.1 ; Pain in right toe(s) M79.674 ; Pain in left toe(s) M79.675 ; Other hammer toe(s) (acquired), left foot M20.42 ; Other hammer toe(s) (acquired), right foot M20.41 and Venous insufficiency I87.[address] [address] 02/23/2025 Anuradha Hermosillo Unspecified atherosclerosis of [place] arteries of extremities, bilateral legs I70.203 ; Tinea unguium B35.1 ; Pain in right toe(s) M79.674 and Pain in left toe(s) M79.[address] [address] 10/16/2024 Anuradha Hermosillo [address] [address] 10/21/2024 Anuradha Hermosillo [address] [address] 11/02/2024 Anuradha Hermosillo Assessments Encounter Date Diagnosis (ICD Code) Assessment Notes Treatment Notes Treatment Clinical Notes Section Notes 05/22/2024 Tinea unguium (ICD-10 - B35.1) 05/22/2024 Unspecified atherosclerosis of [place] arteries of extremities, bilateral legs (ICD-10 - [...] CARE INSTRUCTIONS. pdf) 12/22/2024 Unspecified atherosclerosis of [place] arteries of extremities, bilateral legs (ICD-10 - I70.203) 12/22/2024 Xerosis of skin (ICD-10 - L85.3) 02/23/2025 Tinea unguium (ICD-10 - B35.1) 02/23/2025 Unspecified atherosclerosis of [place] arteries of extremities, bilateral legs (ICD-10 - I70.203) 02/23/2025 Pain in right toe(s) (ICD-10 - M79.674) 12/22/2024 Tinea unguium (ICD-10 - B35.1) 11/20/2024 Unspecified atherosclerosis of [place] arteries of extremities, bilateral legs (ICD-10 - I70.203) 08/21/2024 Unspecified atherosclerosis of [place] arteries of extremities, bilateral legs (ICD-10 - I70.203) 10/20/2024 Unspecified atherosclerosis of [place] arteries of extremities, bilateral legs (ICD-10 - [...] X ray : Foot, left 2V 09/14/2015 68156-IKKJKGH NAIL, 6 OR MORE 11/16/2015 11599-VCNKRTP NAIL, 6 OR MORE 05/16/2016 78906-KLSSCPK NAIL, 6 OR MORE 08/23/2016 13732-QOFULXG NAIL, 6 OR MORE 12/05/2016 14640-ZCLETVQ NAIL, 6 OR MORE 03/06/2017 04077-IPPGKNG NAIL, 6 OR MORE 07/03/2017 48479-ERJOSAO NAIL, 6 OR MORE 03/10/2015 48082-IDYQPRA NAIL, 6 OR MORE 06/13/2015 00595-FITYGAL NAIL, 6 OR MORE 10/01/2013 66647-AEXREOU NAIL, 6 OR MORE 01/13/2015 45881-UAUONHN NAIL, 6 OR MORE 06/30/2018 83878-MDKHTAY NAIL, 6 OR MORE 11/04/2017 57203-ESUPCWM NAIL, 6 OR MORE 03/05/2018 09131-Ogjg Destruction, 1-14 01/27/2015 10398-Ywxv Destruction, 1-14 01/13/2015 90435-Xuex Destruction, 1-14 03/10/2015 13625-Zqya Destruction, 1-14 06/13/2015 25531-Hfdiukxp Plate 06/13/2015 44081-Wukparcy Plate 03/10/2015 28540-Tewjkckz Plate 06/30/2018 17347- Debride <25 sq cm 03/10/2015 08924- Debride <25 sq cm 01/27/2015 03750- Debride <25 sq cm 08/24/2015 80762- Debride <25 sq cm 09/05/2015 77427- Debride <25 sq cm 09/14/2015 87500-HHEPDKN SKIN/TISSUE 01/13/2015 29155-DYEYLRO SKIN/TISSUE 07/20/2015 65843-ERWDOVW SKIN/TISSUE 06/27/2015 26794-WAGMWIT SKIN/TISSUE 07/04/2015 85088-PHUUMEN SKIN/TISSUE 10/17/2022 85563-OIYA SKIN LESIONS, OVER 4 11/15/19 21 32728-VGAZ SKIN LESIONS, OVER 4 03/16/20 21 64327-VSHW SKIN LESIONS, OVER 4 10/17/19 23 82079-CWQH SKIN LESIONS, 2 TO 4 06/30/20 18 02276-PJWX SKIN LESIONS, 2 TO 4 03/05/20 18 39578-WBFM SKIN LESIONS, 2 TO 4 11/25/19 19 40954-ELTX SKIN LESIONS, 2 TO 4 03/30/20 19 83149-CQEJ SKIN LESIONS, 2 TO 4 07/20/20 19 49628-ZPNN SKIN LESIONS, 2 TO 4 11/18/19 99581-YKDW SKIN LESIONS, 2 TO 4 03/21/20 20 85931-WMRR SKIN LESIONS, 2 TO 4 07/20/20 20 39360-SGXS SKIN LESIONS, 2 TO 4 02/28/20 23 50842-LKOJ SKIN LESIONS, 2 TO 4 05/16/20 16 22977-JWGB SKIN LESIONS, 2 TO 4 11/16/19 16 07588-JKRT SKIN LESIONS, 2 TO 4 11/04/19 18 53832-YGCN SKIN LESIONS, 2 TO 4 07/03/20 17 31820-NVOC SKIN LESIONS, 2 TO 4 12/06/19 17 53393-PKMB SKIN LESIONS, 2 TO 4 03/06/20 17 66651-CXEY SKIN LESIONS, 2 TO 4 08/23/20 16 20497-DBYMZEZF OF HEMATOMA/FLUID 023 Next Appt Details Provider Name:Anuradha Johnson Yamileth ingris, 05/07/2025 12:30:00 PM, [address] [facility], [place], [address], Insurance Providers Payer Name Payer Address Payer Phone Subscriber Number Group Number Insured Name Patient Relationship to Insured Coverage Start Date Coverage End Date [facility] [address] [place] [address] [id number] Vladimir Flynn Self - patient is the [...] center left eye cataract surger y 01/22/2017 [facility] ER pt passed out for two seconds, lab work was done everything came out fine. 04/2016
--- OUTSIDE RECORDS SUMMARY | 2025-04-27 10:41 | XMS_ITS ---
[facility] Name [facility] Organization Unknown Care Team Organization Name Specialty Phone Email Start Date End Da te [facility] MARLENI PIRES Primary Care 07/17/2022 04/27/20 24
[2025-04-28 10:01] LABS: Prothrombin Time Whole Bld POC 46.8 sec (11.1-13.5); ~PT, ~INR - Anti Coag Clinic 3.9 (0.9-1.1)
== END 2025-04-27 10:20 | disposition home or self-care (01) ==
LOC: HO.ACS 09:36
PROVIDERS: PCP Internal Medicine; Visit Provider Internal Medicine Medical Oncology
DX: Z79.01 Long term (current) use of anticoagulants (principal)

== ENCOUNTER → 2025-04-27 09:36 | Outpatient (BNVA) | payer MEDICARE, SELFPAY | PROVIDERS: PCP Internal Medicine; Visit Provider Internal Medicine Medical Oncology | DX: I48.91 Unspecified atrial fibrillation (principal); Z79.01 Long term (current) use of anticoagulants; Z51.81 Encounter for therapeutic drug level monitoring | CPT/HCPCS: 85610; 99211 ==

== ENCOUNTER 2025-05-25 09:43 | Outpatient (AMB) | payer MEDICARE, SELFPAY ==
[2025-05-25 09:57] LABS: Prothrombin Time Whole Bld POC 34.7 sec (11.1-13.5); ~PT, ~INR - Anti Coag Clinic 2.9 (0.9-1.1)
--- NOTE | 2025-05-25 09:59 | MHC.OFFVISCO ---
Intake Intake Visit Reasons: Anticoagulation Allergies clopidogrel (From PLAVIX) Allergy (Unknown, Verified 05/25/25 09:51) RASH Medication List - Last Reconciled 05/25/25 by Carolina Diaz, GUSTAVO acetaminophen ER 650 mg PO Q12H PRN ascorbic acid (vitamin C) 500 mg PO DAILY atorvastatin 20 mg PO DAILY B-complex with vitamin C 1 tab PO DAILY calcium carb-mag ox-zinc sulf 1 tab PO DAILY coenzyme Q10 10 mg PO TID ferrous sulfate 325 mg PO DAILY furosemide 20 mg PO DAILY metoprolol succinate ER 25 mg PO DAILY omega 3-maj-ujq-fish oil 1,000 (120-180) mg (Fish Oil) 1 cap PO DAILY saw palmetto 500 mg PO BID vitamin E 400 units PO DAILY warfarin (Jantoven) 2.5 tabs See Protocol PO YELITZA@0900 Nursing Note INR: 2.9 in therapeutic range of 2-3 Medications and supplements reviewed No changes in health, diet, medications, or supplements, Denies any signs and symptoms of bleeding or bruising or clotting. 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
--- OUTSIDE RECORDS SUMMARY | 2025-05-25 12:23 | XMS_ITS | Patient Health Record ---
[facility] Organization [facility] Ariel Llamasley Address [address] [place] [address] Care Team Providers Care Clearance Representative Name Role Phone Kirk Randle MD Primary Care Provider Unavailab Anuradha Hobbs Unavailable [phone] Allergies Allergen (clinical drug ingredient) Drug/Non Drug Allergy documented on EMR Reaction Allergy Type Onset Date Status clopidogrel Plavix rash Drug Allergy Activ e Reason For Referral Diagnosis 1 Tinea unguium (B35.1 ) Diagnosis 2 Other hammer toe(s) (acquired), left foot (M20.42) Diagnosis 3 Unspecified atherosc lerosis of lummi arteries of extremities, bilateral legs (I70.203) Diagnosis [...] Referring Provider Last Name Jer Referred Organization [facility] Jamal Referred Provider Anuradha Hermosillo Referred Address [address] [facility] [facility],[place], [place],[address], Referred Provider Specialty Podiatry Referral Priority Routine Medications Medication SIG (Take, Route, Frequency, Duration) Notes Start Date End Date Status Lisinopril 10 MG 1 tablet Orally Once [...] Twice a day; Duration: 30 days Active Warfarin Sodium 5 MG 1 tablet Orally Two times a Week; Duration: 30 day(s) Active Simvastatin 40 MG 1 tablet in the even ing Orally Once a day; Duration: 30 day(s) Active Metoprolol Succinate ER 25 MG 1 tablet Orally Once a day; Duration: 30 day(s) Active Multivitamin Active Furosemide Active Ibuprofen 800 MG 1 tablet every Orall y Three times a day; Duration: 14 days 07/04/2015 Not-Taking Fish Oil 1200 MG 1 capsule Orally Onc e a day; Duration: 30 day(s) Active Cipro 500 MG 1 tablet Orally Twic e a day; Duration: 10 day(s) 08/24/2015 Not-Taking Aspirin 81 MG 1 tablet Orally Once a day; Duration: 30 day(s) Active Ibuprofen 800 MG 1 tablet every Orall y Three times a day; Duration: 14 days Not-Taking Immunizations Vaccine Route Administration Date Status Comme nts Influenza Unknown 06/30/2022 Administered Influenza Unknown 06/09/2024 Administered COVID-19 Moderna Vaccine Unknown 06/30/2022 Administered 1st 10/11/2020,11/08/202020,2021 Social History Tobacco Use: Social History Observation Description Date Details (start date - stop date) Never Smoker NA - NA Alcohol Screen Question Answer Notes Did you have a drink contain ing alcohol in the past year? Yes How often did you have a dri nk containing alcohol in the past year? Monthly or less (1 point) Points 1 Interpretation Negative Tobacco use other than smoking: Question Answer Notes Are you an other tobacco user? No Tobacco Control (Standard) Question Answer Notes Tobacco use: Nonsmoker Additional Findings: Tobacco non-user Current no nsmoker AUDIT-C (Standard) Question Answer Notes Did you have a drink containing alcohol in the p ast year? 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 Vital Signs Blood pressure diastolic 75 mm Hg 05/07/2025 Height 6 ft 3 in in 05/07/2025 Blood pressure systolic 115 mm Hg 05/07/2025 Weight 217 lbs 05/07/2025 BMI 27.12 kg/m2 05/07/2025 Encounters Encounter Location Date Provider Diagnosis [address] [address] 08/21/2024 Anuradha Hermosillo Tinea unguium B35.1 ; Unspecified atherosclerosis of lummi arteries of extremities, bilateral legs I70.203 ; Pain in right toe(s) M79.674 ; Pain in left toe(s) M79.675 ; Other hammer toe(s) (acquired), left foot M20.42 ; Other hammer toe(s) (acquired), right foot M20.41 ; Venous insufficiency I87.2 and Ischemic ulcer of left foot, limited to breakdown of skin L97.[address] [address] 10/20/2024 Anuradha Hermosillo Ischemic ulcer of le ft heel, limited to breakdown of skin L97.421 ; Xerosis of skin L85.3 ; Unspecified atherosclerosis of lummi arteries of extremities, bilateral legs I70.203 ; Other hammer toe(s) (acquired), left foot M20.42 ; Other hammer toe(s) (acquired), right foot M20.41 and Ischemic ulcer of right heel, limited to breakdown of skin L97.[address] [address] 11/20/2024 Anuradha Hermosillo Ischemic ulcer of le ft heel, limited to breakdown of skin L97.421 ; Xerosis of skin L85.3 ; Unspecified atherosclerosis of lummi arteries of extremities, bilateral legs I70.203 ; Other hammer toe(s) (acquired), left foot M20.42 and Other hammer toe(s) (acquired), right foot M20.[address] [address] 12/22/2024 Anuradha Hermosillo Unspecified atherosclerosis of lummi arteries of extremities, bilateral legs I70.203 ; Xerosis of skin L85.3 ; Tinea unguium B35.1 ; Pain in right toe(s) M79.674 ; Pain in left toe(s) M79.675 ; Other hammer toe(s) (acquired), left foot M20.42 ; Other hammer toe(s) (acquired), right foot M20.41 and Venous insufficiency I87.[address] [address] 02/23/2025 Anuradha Hermosillo Unspecified atherosclerosis of lummi arteries of extremities, bilateral legs I70.203 ; Tinea unguium B35.1 ; Pain in right toe(s) M79.674 and Pain in left toe(s) M79.[address] [address] 05/07/2025 Anuradha Hermosillo Unspecified atherosclerosis of lummi arteries of extremities, bilateral legs I70.203 ; Tinea unguium B35.1 ; Pain in right toe(s) M79.674 and Pain in left toe(s) M79.[address] [address] 10/16/2024 Anuradha Hermosillo [address] [address] 10/21/2024 Anuradha Hermosillo [address] [address] 11/02/2024 Anuradha Hermosillo Assessments Encounter Date Diagnosis (ICD Code) Assessment Notes Treatment Notes Treatment Clinical Notes Section Notes 08/21/2024 Tinea unguium (ICD-10 - B35.1) 10/20/2024 [...] CARE INSTRUCTIONS. pdf) 12/22/2024 Unspecified atherosclerosis of lummi arteries of extremities, bilateral legs (ICD-10 - I70.203) 12/22/2024 Xerosis of skin (ICD-10 - L85.3) 02/23/2025 Tinea unguium (ICD-10 - B35.1) 02/23/2025 Unspecified atherosclerosis of lummi arteries of extremities, bilateral legs (ICD-10 - I70.203) 05/07/2025 Unspecified atherosclerosis of lummi arteries of extremities, bilateral legs (ICD-10 - I70.203) 05/07/2025 Tinea unguium (ICD-10 - B35.1) 02/23/2025 Pain in right toe(s) (ICD-10 - M79.674) 12/22/2024 Tinea unguium (ICD-10 - B35.1) 11/20/2024 Unspecified atherosclerosis of lummi arteries of extremities, bilateral legs (ICD-10 - I70.203) 08/21/2024 Pain in right toe(s) (ICD-10 - M79.674) 08/21/2024 Unspecified atherosclerosis of lummi arteries of extremities, bilateral legs (ICD-10 - I70.203) 10/20/2024 Unspecified atherosclerosis of lummi arteries of extremities, bilateral legs (ICD-10 - I70.203) 10/20/2024 Other hammer toe(s) (acquired), left foot (ICD-10 - M20.42) 08/21/2024 Pain in left toe(s) (ICD-10 - M79.675) 12/22/2024 Pain in right toe(s) (ICD-10 - M79.674) 02/23/2025 Pain in left toe(s) (ICD-10 - M79.675) 11/20/2024 Other hammer toe(s) (acquired), left foot (ICD-10 - M20.42) 05/07/2025 Pain in right toe(s) (ICD-10 - M79.674) 05/07/2025 Pain in left toe(s) (ICD-10 - M79.675) 12/22/2024 Pain in left toe(s) (ICD-10 - [...] X ray : Foot, left 2V 09/14/2015 96717-YDMQLOS NAIL, 6 OR MORE 11/16/2015 24378-IEAAURX NAIL, 6 OR MORE 05/16/2016 68653-INMWRTD NAIL, 6 OR MORE 08/23/2016 08654-TJTWLCE NAIL, 6 OR MORE 12/05/2016 40738-AYJJLNP NAIL, 6 OR MORE 03/06/2017 79677-NBQHAYI NAIL, 6 OR MORE 07/03/2017 10402-ZTUBSAR NAIL, 6 OR MORE 03/10/2015 70961-DKWDVWE NAIL, 6 OR MORE 06/13/2015 76578-SVMMRLT NAIL, 6 OR MORE 10/01/2013 03300-RXQJEJC NAIL, 6 OR MORE 01/13/2015 71065-FZZWCBO NAIL, 6 OR MORE 06/30/2018 36796-IJJNLZE NAIL, 6 OR MORE 11/04/2017 85401-LWUUXZZ NAIL, 6 OR MORE 03/05/2018 18284-Crlb Destruction, 1-14 01/27/2015 48525-Zzfz Destruction, 1-14 01/13/2015 38303-Uakv Destruction, 1-14 03/10/2015 70968-Kknj Destruction, 1-14 06/13/2015 88814-Vlktcmck Plate 06/13/2015 73473-Qvkzriyk Plate 03/10/2015 69190-Wrxnhkev Plate 06/30/2018 18370- Debride <25 sq cm 03/10/2015 03291- Debride <25 sq cm 01/27/2015 65434- Debride <25 sq cm 08/24/2015 99054- Debride <25 sq cm 09/05/2015 67695- Debride <25 sq cm 09/14/2015 66641-XYVOCMU SKIN/TISSUE 01/13/2015 54444-ZXLOIVX SKIN/TISSUE 07/20/2015 32572-TALOCGX SKIN/TISSUE 06/27/2015 59258-FJGAUQP SKIN/TISSUE 07/04/2015 81058-JMIKBUH SKIN/TISSUE 10/17/2022 38986-NBMS SKIN LESIONS, OVER 4 11/15/19 21 08151-OLKE SKIN LESIONS, OVER 4 03/16/20 21 89922-CUGM SKIN LESIONS, OVER 4 10/17/19 44565-UQFV SKIN LESIONS, 2 TO 4 06/30/20 18 39684-CIKH SKIN LESIONS, 2 TO 4 03/05/20 18 21931-BSCD SKIN LESIONS, 2 TO 4 11/25/19 48877-NOIU SKIN LESIONS, 2 TO 4 03/30/20 69604-PXWR SKIN LESIONS, 2 TO 4 07/20/20 99114-IFNF SKIN LESIONS, 2 TO 4 11/18/19 44455-YITX SKIN LESIONS, 2 TO 4 03/21/20 20 03477-LMND SKIN LESIONS, 2 TO 4 07/20/20 20 85402-VXDO SKIN LESIONS, 2 TO 4 02/28/20 23 45210-KVKD SKIN LESIONS, 2 TO 4 05/16/20 16 87073-EPCB SKIN LESIONS, 2 TO 4 11/16/19 16 25776-SUUE SKIN LESIONS, 2 TO 4 11/04/19 18 56823-SOVW SKIN LESIONS, 2 TO 4 07/03/20 17 58862-AIGH SKIN LESIONS, 2 TO 4 12/06/19 17 23119-QKDO SKIN LESIONS, 2 TO 4 03/06/20 17 13644-KGVH SKIN LESIONS, 2 TO 4 08/23/20 16 66612-UUXPIALW OF HEMATOMA/FLUID 023 Next Appt Details Provider Name:Anuradha amado, 08/10/2025 11:00:00 AM, [address] [place], [address], Insurance Providers Payer Name Payer Address Payer Phone Subscriber Number Group Number Insured Name Patient Relationship to Insured Coverage Start Date Coverage End Date [facility] Care Options [address] [place] [id number] Vladimir Flynn Self - patient is the [...] center left eye cataract surger y 01/22/2017 [facility] [place] [place] passed out for two seconds, lab work was done everything came out fine. 04/2016
--- OUTSIDE RECORDS SUMMARY | 2025-05-25 12:23 | XMS_ITS | Clinical Summary ---
Author Organization [facility] ([place], [place]) [place] Address [address] [facility] [place] [address] Phone Care Team Providers Care Environmental Conflict Manager Name Role Phone Kirk Randle MD Primary Care Provider [phone] Allergies Active Allergy Reactions Criticality Noted Date Comments Clopidogrel Rash 07/26/2010 Medications multivitamin (MULTIPLE VITAMINS ORAL) Take 1 tablet by mouth 1 (one) time each day. Active OMEGA-3 FATTY ACIDS ORAL Take 1 capsule by mouth 1 (one) time each day. Active acetaminophen (TYLENOL) 325 mg tablet Take 2 tablets (650 mg total) by mouth every 6 (six) hours if needed for mild pain or moderate pain. for up to 10 days. 3 Active fluticasone propionate (FLONASE) 50 mcg/actuation nasal spray Administer 2 sprays into each nostril 1 (one) time each day. for 360 days. 4 Active warfarin (COUMADIN) 5 mg tablet Take 0.5 tablets (2.5 mg total) by mouth 1 (one) time each day. [facility] 4 Active warfarin (COUMADIN) 5 mg tablet Take 1 tablet (5 mg total) by mouth 1 (one) time each day with dinner. See Admin Instructions. May cause heavy bleeding. Take at same time every day. Do not change dietary habits. [facility] directs coumadin instructions 90 tablet 11 5 Active atorvastatin (LIPITOR) 20 mg tablet TAKE ONE TABLET BY MOUTH EVERY DAY 90 tablet 1 5 Active metoprolol succinate (TOPROL-XL) 25 mg 24 hr tablet TAKE ONE TABLET BY MOUTH EVERY DAY 90 tablet 1 5 Active furosemide (LASIX) 20 mg tablet Take 1 tablet (20 mg total) by mouth 1 (one) time each day. 90 tablet 2 5 Active warfarin (COUMADIN) 2.5 mg tablet Take one tablet daily or as directed per Coumadin clinic 90 tablet 1 5 04/27/20 26 Active amoxicillin (AMOXIL) 500 mg capsule Take 4 caps (2000 mg) 1 hour prior to procedure. 12 capsule 1 5 04/29/20 25 Active Problems Problem Noted Date Diagnosed Date Peripheral arterial disease (CMS/[facility] V24) 2022 Cardiomyopathy (CMS/[facility] V24, CMS/[facility] V28) 2021 Assessment & Plan (04/19/2025 10:18 AM EDT): Patient's last echocardiogram showed an LVEF of 40 to 45%. He does not present with any clinical symptoms of worsening heart failure. He has some mild leg edema likely secondary to peripheral vascular insufficiency. He is on appropriate guideline directed medical therapy with beta-rivas and furosemide. No changes to his medical therapies at this time. Patient advised to seek emergency medical attention by calling 911 if they were to develop severe dyspnea, chest pain that did not resolve with rest or nitroglycerin, or if they were to faint. I've asked the patient to call if they develop worsening symptoms of heart failure such as increased shortness of breath, new or worsening cough, increased swelling in the legs or ankles, or weight gain of more than 2 pounds in one day or 4 pounds in one week. 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 He was treated with antibiotic therapy. We discussed endocarditis prophylaxis. Patient should be treated with antibiotics prior to any dental cleanings or procedures. Antibiotics sent to pharmacy. History of knee replacement, total, right 2018 Osteoarthritis 12/12/2018 Overview (08/04/2024): R knee Atrial fibrillation (CMS/HCC V24, CMS/HCC V28) 0 05/14/2018 Overview (04/19/2025): Jantoven/ warfarin Assessment & Plan (04/19/2025 10:18 AM EDT): Patient has history of atrial fibrillation and continues on chronic anticoagulation with warfarin given elevated [id number] score. He denies any bleeding or excessive bruising. Continue with warfarin as prescribed. INR goal 2-3. Patient has a slow ventricular response with a heart rate of 50 bpm today on EKG. This is unchanged from his previous EKG. He is asymptomatic and denies any lightheadedness, dizziness, syncope or near syncope. Assessment & Plan (10/09/2024 5:27 PM EST): Patient with a history of A-fib chronically anticoagulated with Coumadin for an elevated CHADS2 score. No bleeding issues no symptomatic palpitations no lightheadedness or dizziness no dyspnea. Patient is doing well otherwise. Orders: ECG 12 lead CAD (coronary artery disease) 05/14/2018 Overview (04/19/2025): Old [place]; Stress test -ve 2010, treated in [facility] in 2003, stents put in. Assessment & Plan (04/19/2025 10:18 AM EDT): Patient is a 82 of coronary artery disease status post RCA stenting in 2003. He denies any exertional anginal symptoms. He continues on cardioprotective medical therapy with beta-rivas and statin. He is on warfarin. I have reviewed with the patient the importance of a heart healthy lifestyle which includes eating a low- fat low-salt diet, getting regular exercise, maintaining a healthy weight, not smoking, and following up with routine medical care. Assessment & Plan (10/09/2024 5:27 PM EST): Patient denies chest pain history coronary disease with prior stenting of the right coronary in 2003 with evidence of a previous myocardial infarction on noninvasive testing no ischemia identified Chronic venous insufficiency 05/14/2018 Overview (08/04/2024): Last Assessment & Plan: Patient continues to follow closely with [facility] vascular surgery. Assessment & Plan (04/19/2025 10:18 AM EDT): Patient has history of chronic venous insufficiency with some mild leg edema. He continues on furosemide. Recommend compression stockings. Assessment & Plan (10/09/2024 5:27 PM EST): Chronic lower extremity venous insufficiency with no evidence of skin breakdown or cellulitis The above note was prepared with the help of voice recognition software. Please excuse any grammatical or spelling errors that may have occurred Hyperlipidemia 05/14/2018 Assessment & Plan (04/19/2025 10:18 AM EDT): Patient's last cholesterol is 54. This is at goal. Continue with statin as prescribed. Hypertension 05/14/2018 Assessment & Plan (04/19/2025 10:18 AM EDT): Patient's blood pressure is under good control with a reading today 136/78. Would recommend the continuation of metoprolol as prescribed. Assessment & Plan (09/30/2024 10:48 AM EST): Hypertension is under control. 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 BPH (benign prostatic hyperplasia) 07/30/2017 Diverticulosis 08/24/2016 Encounters Date Type Department Care Team Description 04/27/2025 Telephone [facility] [address] [place] [address] Ced Victoria MD 04/19/2025 10:10 AM EDT Office Visit [facility] [address] [place] [address] Virgie Trivedi NP Atrial fibrillation, unspecified type (CMS/HCC V24, CMS/HCC V28) (Primary Dx); Coronary artery disease involving salt river coronary artery of salt river heart without angina pectoris; Dilated cardiomyopathy (CMS/HCC V24, CMS/HCC V28); Chronic venous insufficiency; Endocarditis of mitral valve; Mixed hyperlipidemia; Primary hypertension 03/15/2025 3:45 PM EDT Office Visit Internal Medicine - [place] [address] [place] [phone] Kirk Randle MD Primary hypertension (Primary Dx); Cardiomyopathy, unspecified type (CMS/HCC V24, CMS/HCC V28); Hypercholesterolemia; Atrial fibrillation, unspecified type (CMS/HCC V24, CMS/HCC V28); Dizziness 03/08/2025 2:00 PM EDT [facility] [address] [place] [address] Ara Gomez OT Dizziness (Primary Dx); Benign paroxysmal positional vertigo, unspecified laterality 03/08/2025 Telephone [facility] [address] [place] [address] Ced Victoria MD 03/01/2025 12:30 PM EDT Treatment [facility] Occupational Therapy [address] [place] [address] Ara Gomez OT Dizziness (Primary Dx); Benign paroxysmal positional vertigo, unspecified laterality 02/22/2025 Telephone Internal Medicine - [address] [place] [address] Kirk Randle MD from Last 3 Months [...] PROCEDURE: HISTORICAL CARDIAC CATH KNEE ARTHROSCOPY PROCEDURE: MI ARTHROSCOPY AID TX SPINE&/FX KNEE W/O FIXJ OTHER SURGICAL HISTORY 05/19/2018 Right PROCEDURE: MI ENDOVEN ABLTJ INCMPTNT VEIN XTR LASER 1ST VEIN TOTAL KNEE ARTHROPLASTY 10/07/2018 Right PROCEDURE: HISTORICAL TOTAL KNEE REPLACE; COMMENT: [facility] - Dr. Cazares EYE SURGERY Bilateral PROCEDURE: HISTORICAL EYE SURGERY; COMMENT: cataracts BYPASS GRAFT 08/16/2022 Right PROCEDURE: MI AMPUTATION TOE METATARSOPHALANGEAL JOINT; COMMENT: R 5th toe OTHER SURGICAL HISTORY 08/16/2022 Right PROCEDURE: MI INCISION BONE CORTEX FOOT; COMMENT: R 5th metatarsal OTHER SURGICAL HISTORY 10/23/2022 PROCEDURE: MI SLCTV CATHJ 3RD+ ORD SLCTV ABDL PEL/LXTR BRNCH OTHER SURGICAL HISTORY 10/23/2022 PROCEDURE: X-RAY EXAM OF ARM/LEG ARTERY OTHER SURGICAL HISTORY 10/23/2022 PROCEDURE: ULTRASOUND GUIDANCE FOR VASCULAR AC OTHER SURGICAL HISTORY 07/09/2023 PROCEDURE: MI REVSC OPN/PRQ TIB/RON W/ANGIOPLASTY UNI OTHER SURGICAL HISTORY 07/09/2023 PROCEDURE: ULTRASOUND GUIDANCE FOR VASCULAR AC Medical History Medical History Date Comments Atrial fibrillation (CMS/HCC V24, CMS/HCC V28) DX:Atrial fibrillation (HCC) Coronary artery disease DX:Coron randy artery disease; COMMENT: Old [place]; Stress test -ve 2010, treated in [facility] in 2004, stents put in. Cataracts, bilateral [...] Sign Reading Time Taken Comments Blood Pressure 136/78 04/19/2025 9:48 AM EDT Pulse 51 04/19/2025 9:48 AM EDT Temperature 35.6 C (96 F) 03/15/2025 3:39 PM EDT Respiratory Rate - - Oxygen Saturation 98% 04/19/2025 9:48 AM EDT Inhaled Oxygen Concentration - - Weight 98 kg (216 lb) 04/19/2025 9:48 AM EDT Height 190.5 cm (6' 3 ) 04/19/2025 9:48 AM EDT Body Mass Index 27 04/19/2025 9:48 AM EDT Plan of Treatment Upcoming Encounters Date Type Department Care Team (Late st Contact Info) Description 07/14/2025 1:00 PM EST Appointment [facility] Ultrasound [address] [place] [address] 09/14/2025 11:00 AM EST Office Visit Internal Medicine - [place] [address] [place] [phone] Kirk Randle MD [address] [facility] [address] [place] [address] Health Maintenance Due Date Last Done Comments DTaP,Tdap,and Td Vaccines (1 - Tdap) 1961 Zoster Vaccines (1 of 2) 01/02/1992 RSV Immunization Adult Patients (1 - 1-dose 75+ series) 2017 Social Influencers of Health Screening 08/18/2022 COVID-19 Vaccine ( season) 2025 06/08/2024, 06/14/2023, 07/17/2022, Additional history exists Influenza [...] visits General No change(2024 2:12 PM EDT) Ara Adams OT Note: 1) Pt will return demo HEP/maintain symptom log MET 2) Pt will report no signif vertiginous symptoms w/ positional testing all canals PERSISTENT LIGHTHEADED/HEAD COLLAZO SENSATION, not true vertigo Procedures Procedure Name Priority Date/Time Associated Diagnosis Comments ECG 12-LEAD Routine 04/19/2025 10:30 AM EDT Atrial fibrillation, unspecified type (CMS/HCC V24, CMS/HCC V28) Coronary artery disease involving salt river coronary artery of salt river heart without angina pectoris Dilated cardiomyopathy (CMS/HCC V24, CMS/HCC V28) COMPREHENSIVE METABOLIC PANEL Routine 09/30/2024 10:13 AM EST Cardiomyopathy, unspecified type (CMS/HCC V24, CMS/HCC V28) Primary hypertension Hypercholesterolemia LIPID PANEL WITH REFLEX TO DIRECT LDL Routine 09/30/2024 10:13 AM EST Cardiomyopathy, unspecified type (CMS/HCC V24, CMS/HCC V28) Primary hypertension Hypercholesterolemia from Last 3 Months or Most Recently Relevant to Health Maintenance Results * ECG 12 lead (04/19/2025 10:30 AM EDT) Ventricular Rate ECG 50 BPM GEMUSE Atrial Rate 208 BPM GEMUSE QRS Duration 96 ms GEMUSE Q-T Interval 442 ms GEMUSE QTc 402 ms GEMUSE R [place] 77 degrees GEMUSE T [place] 6 degrees GEMUSE ECG Interpretation Atrial fibrillation with slow ventricular response with premature ventricular or aberrantly conducted complexes Cannot rule out Inferior infarct (cited on or before 02-APR-2021) Abnormal ECG When compared with ECG of 09-OCT-2024 10:25, No significant change was found Confirmed by ISSA CELIS ([id number]) on 04/19/2025 2:12:02 PM GEMUSE 04/19/2025 9:59 AM EDT 04/19/2025 2:12 PM EDT us Virgie Trivedi UX DEVELOPER ECG ORDERABLES Edited Resul t - Final Performing Organization Address [facility] Co de Phone Number KENYON * Lipid panel with reflex to direct LDL (09/30/2024 10:13 AM EST) Cholesterol 117 0 - 200 mg/dL LAB CHEMISTRY METHOD 09/30/2024 1:14 PM EST [facility] Triglycerides 77 0 - 150 mg/dL LAB CHEMISTRY METHOD 09/30/2024 1:14 PM EST [facility] HDL 48 >=40 mg/dL LAB CHEMISTRY METHOD 09/30/2024 1:14 PM EST [facility] LDL Calculated 54 0 - 100 mg/dL LAB CHEMISTRY METHOD 09/30/2024 1:14 PM EST [facility] VLDL Cholesterol Ric 15.4 mg/dL LAB CHEMISTRY METHOD 09/30/2024 1:14 PM EST [facility] Non HDL Chol. (LDL+VLDL) 69 <145 mg/dL LAB CHEMISTRY METHOD 09/30/2024 1:14 PM EST [facility] Chol/HDL Ratio 2.4 0.0 - 4.4 LAB CHEMISTRY METHOD 09/30/2024 1:14 PM EST [facility] Blood Venous blood specimen / Unknown Venipuncture / Unknown 09/30/2024 10:13 AM EST 09/30/2024 11:01 AM EST us Kirk Randle MD LAB BLOOD ORDERABLES Final Resul t [facility] [address] [place] [address], [place] [phone] * (ABNORMAL) Comprehensive metabolic panel (09/30/2024 10:13 [...] [facility] Comment:Calculation based on the [...] unit/L LAB CHEMISTRY METHOD 09/30/2024 1:14 PM EST [facility] Alkaline Phosphatase 97 42 - 121 unit/L LAB CHEMISTRY METHOD 09/30/2024 1:14 PM [facility] Total Protein 7.1 6.0 - 8.0 g/dL LAB CHEMISTRY METHOD 09/30/2024 1:14 PM EST [facility] Albumin 4.0 3.2 - 5.0 g/dL LAB CHEMISTRY METHOD 09/30/2024 1:14 PM [facility] Total Bilirubin 1.2 0.0 - 1.4 mg/dL LAB CHEMISTRY METHOD 09/30/2024 1:14 PM [facility] Blood Venous blood specimen / Unknown Venipuncture / Unknown 09/30/2024 10:13 AM EST 09/30/2024 11:01 AM EST us Kirk Randle MD LAB BLOOD ORDERABLES Final Resul t [facility] [address] [place] [address], from Last 3 Months or Most Recently Relevant to Health Maintenance Insurance [employer] Advance Directives Documents on File Type Date Recorded 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
== END 2025-05-25 10:04 | disposition home or self-care (01) ==
LOC: HO.ACS 09:43
PROVIDERS: PCP Internal Medicine; Visit Provider Internal Medicine Medical Oncology
DX: Z79.01 Long term (current) use of anticoagulants (principal)

== ENCOUNTER → 2025-05-25 09:43 | Outpatient (BNVA) | payer MEDICARE, SELFPAY | PROVIDERS: PCP Internal Medicine; Visit Provider Internal Medicine Medical Oncology | DX: I48.91 Unspecified atrial fibrillation (principal); Z79.01 Long term (current) use of anticoagulants; Z51.81 Encounter for therapeutic drug level monitoring | CPT/HCPCS: 85610; 99211 ==

== ENCOUNTER 2025-06-22 09:51 | Outpatient (AMB) | payer MEDICARE, SELFPAY ==
[2025-06-22 10:09] LABS: Prothrombin Time Whole Bld POC 45.8 sec (11.1-13.5); ~PT, ~INR - Anti Coag Clinic 3.8 (0.9-1.1)
--- NOTE | 2025-06-22 10:15 | MHC.OFFVISCO ---
Intake Intake Visit Reasons: Anticoagulation Allergies clopidogrel (From PLAVIX) Allergy (Unknown, Verified 06/22/25 10:02) RASH Medication List - Last Reconciled 06/22/25 by Rosa Og RN acetaminophen ER 650 mg PO Q12H PRN ascorbic acid (vitamin C) 500 mg PO DAILY atorvastatin 20 mg PO DAILY B-complex with vitamin C 1 tab PO DAILY calcium carb-mag ox-zinc sulf 1 tab PO DAILY coenzyme Q10 10 mg PO TID ferrous sulfate 325 mg PO DAILY furosemide 20 mg PO DAILY metoprolol succinate ER 25 mg PO DAILY omega 4-gqw-sag-fish oil 1,000 (120-180) mg (Fish Oil) 1 cap PO DAILY saw palmetto 500 mg PO BID vitamin E 400 units PO DAILY warfarin (Jantoven) 2.5 tabs See Protocol PO YELITZA@0900 Nursing Note INR 3.8 out of therapeutic range Medications and supplements reviewed Patient status: finished up tomatoes recently Medications or supplements: no changes Diet: good Denies any signs and symptoms of bleeding or clotting or unusual bruising Bleeding, bruising, clotting discussed Nutritional guidance given: review food list weekly, eat a mix of fruits and vegetables Dose: 2.5mg daily F/U INR Date: 2 weeks ?? Patient verbalizing understanding of instructions given. Anti-Coag Initial Assessment Social Hx Patient Tobacco Use Status: Never used Tobacco alcohol intake: unknown Coding Level of Care Code Est Patient Level 1 Diagnoses Current use of anticoagulant therapy Z79.01 Results AMB INR Fingerstick AMB INR Fingerstick 3.8 Last Edit by Rosa Og RN on 06/22/25 10:11 manual entry Assessment & Plan Assessment & Plan (1) Current use of anticoagulant therapy: Code(s): Z79.01 - FDC (current) use of anticoagulants Category: Medical
--- OUTSIDE RECORDS SUMMARY | 2025-06-22 11:11 | XMS_ITS | Patient Health Record ---
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 Name Role Phone Kirk Randle MD Primary Care Provider Unavailab Anuradha Hobbs Unavailable [phone] Allergies Allergen (clinical drug ingredient) Drug/Non Drug Allergy documented on EMR Reaction Allergy Type Onset Date Status clopidogrel Plavix rash Drug Allergy Activ e Reason For Referral Diagnosis 1 Tinea unguium (B35.1 ) Diagnosis 2 Other hammer toe(s) (acquired), left foot (M20.42) Diagnosis 3 Unspecified atherosc lerosis of [place] arteries of extremities, bilateral legs (I70.203) Diagnosis [...] Referring Provider Last Name Jer Referred Organization [facility] Jamal Referred Provider Anuradha Hermosillo Referred Address [address] [facility],[place], [place],[address], Referred Provider Specialty Podiatry Referral Priority Routine [...] atherosclerosis of arteries of lower limbs (disorder) ([id number] ) Unspecified atherosclerosis of [place] arteries of extremities, bilateral legs (I70.203) Active confirmed Vital Signs Blood pressure diastolic 75 mm Hg 05/07/2025 Height 6 ft 3 in in 05/07/2025 Blood pressure systolic 115 mm Hg 05/07/2025 Weight 217 lbs 05/07/2025 BMI 27.12 kg/m2 05/07/2025 Encounters Encounter Location Date Provider Diagnosis [address] [address] 08/21/2024 Anuradha Hermosillo Tinea unguium B35.1 ; Unspecified atherosclerosis of [place] arteries of extremities, bilateral legs I70.203 ; Pain in right toe(s) M79.674 ; Pain in left toe(s) M79.675 ; Other hammer toe(s) (acquired), left foot M20.42 ; Other hammer toe(s) (acquired), right foot M20.41 ; Venous insufficiency I87.2 and Ischemic ulcer of left foot, limited to breakdown of skin L97.[address] [address] 10/20/2024 Anuradha Hermosillo Ischemic ulcer of le ft heel, limited to breakdown of skin L97.421 ; Xerosis of skin L85.3 ; Unspecified atherosclerosis of [place] arteries of extremities, bilateral legs I70.203 ; Other hammer toe(s) (acquired), left foot M20.42 ; Other hammer toe(s) (acquired), right foot M20.41 and Ischemic ulcer of right heel, limited to breakdown of skin L97.[address] [address] 11/20/2024 Anuradha Hermosillo Ischemic ulcer of le ft heel, limited to breakdown of skin L97.421 ; Xerosis of skin L85.3 ; Unspecified atherosclerosis of [place] arteries of extremities, bilateral legs I70.203 ; Other hammer toe(s) (acquired), left foot M20.42 and Other hammer toe(s) (acquired), right foot M20.[address] [address] 12/22/2024 Anuradha Hermosillo Unspecified atherosclerosis of [place] arteries of extremities, bilateral legs I70.203 ; Xerosis of skin L85.3 ; Tinea unguium B35.1 ; Pain in right toe(s) M79.674 ; Pain in left toe(s) M79.675 ; Other hammer toe(s) (acquired), left foot M20.42 ; Other hammer toe(s) (acquired), right foot M20.41 and Venous insufficiency I87.[address] [address] 02/23/2025 Anuradha Hermosillo Unspecified atherosclerosis of [place] arteries of extremities, bilateral legs I70.203 ; Tinea unguium B35.1 ; Pain in right toe(s) M79.674 and Pain in left toe(s) M79.[address] [address] 05/07/2025 Anuradha Hermosillo Unspecified atherosclerosis of [place] arteries of extremities, bilateral legs I70.203 ; Tinea unguium B35.1 ; Pain in right toe(s) M79.674 and Pain in left toe(s) M79.[address] [address] 10/16/2024 Anuradha Hermosillo [address] [address] 10/21/2024 Anuradha Hermosillo [address] [address] 11/02/2024 Anuradha Hermosillo Assessments Encounter Date Diagnosis [...] CARE INSTRUCTIONS. pdf) 12/22/2024 Unspecified atherosclerosis of [place] arteries of extremities, bilateral legs (ICD-10 - I70.203) 12/22/2024 Xerosis of skin (ICD-10 - L85.3) 02/23/2025 Unspecified atherosclerosis of [place] arteries of extremities, bilateral legs (ICD-10 - I70.203) 05/07/2025 Unspecified atherosclerosis of [place] arteries of extremities, bilateral legs (ICD-10 - I70.203) 02/23/2025 Tinea unguium (ICD-10 - B35.1) 02/23/2025 Pain in right toe(s) (ICD-10 - M79.674) 05/07/2025 Tinea unguium (ICD-10 - B35.1) 12/22/2024 Tinea unguium (ICD-10 - B35.1) 11/20/2024 Unspecified atherosclerosis of [place] arteries of extremities, bilateral legs (ICD-10 - I70.203) 10/20/2024 Unspecified atherosclerosis of [place] arteries of extremities, bilateral legs (ICD-10 - I70.203) 08/21/2024 Pain in right toe(s) (ICD-10 - M79.674) 08/21/2024 Unspecified atherosclerosis of [place] arteries of extremities, bilateral legs (ICD-10 - I70.203) 08/21/2024 Pain in left toe(s) (ICD-10 - M79.675) 10/20/2024 Other hammer toe(s) (acquired), left foot (ICD-10 - M20.42) 11/20/2024 Other hammer toe(s) (acquired), left foot (ICD-10 - M20.42) 12/22/2024 Pain in right toe(s) (ICD-10 - M79.674) 05/07/2025 Pain in right toe(s) (ICD-10 - M79.674) 02/23/2025 Pain in left toe(s) (ICD-10 - M79.675) 05/07/2025 Pain in left toe(s) (ICD-10 - [...] Date X ray : Foot, left 2V 09/14/2015 X ray : Foot, left 2V 01/27/2015 X ray : Foot, left 2V 08/24/2015 X ray : Foot, left 2V 08/11/2015 X ray : Foot, left 2V 08/01/2015 X ray : Foot, left 2V 07/04/2015 13371-ZSTQQBT NAIL, 6 OR MORE 11/04/2017 50374-VCASQTN NAIL, 6 OR MORE 10/01/2013 88973-HPDKPYI NAIL, 6 OR MORE 12/05/2016 84076-RAYBURT NAIL, 6 OR MORE 03/10/2015 15347-YXDGYVX NAIL, 6 OR MORE 11/16/2015 49351-GWYBWCR NAIL, 6 OR MORE 05/16/2016 92891-RVMTVBP NAIL, 6 OR MORE 08/23/2016 93488-MCYKCCI NAIL, 6 OR MORE 03/06/2017 67659-EPKZJKS NAIL, 6 OR MORE 01/13/2015 84102-UCZOBAT NAIL, 6 OR MORE 06/13/2015 57647-OOIZGSI NAIL, 6 OR MORE 07/03/2017 18664-QAVTGPU NAIL, 6 OR MORE 03/05/2018 21093-RYKYGNV NAIL, 6 OR MORE 06/30/2018 12746-Gxhr Destruction, 1-14 03/10/2015 14918-Husw Destruction, 1-14 06/13/2015 04722-Hgnf Destruction, 1-14 01/13/2015 93392-Bjvl Destruction, 1-01/27/2015 17264-Mhyjgfkd Plate 06/13/2015 15843-Nrkblcvn Plate 03/10/2015 37594-Bgmyinta Plate 06/30/2018 30246- Debride <25 sq cm 03/10/2015 47336- Debride <25 sq cm 09/05/2015 64923- Debride <25 sq cm 09/14/2015 04411- Debride <25 sq cm 08/24/2015 87488- Debride <25 sq cm 01/27/2015 21843-GOJLKRO SKIN/TISSUE 06/27/2015 95665-PYCDMHK SKIN/TISSUE 07/20/2015 86953-OOAIUEG SKIN/TISSUE 07/04/2015 75776-GFZSPKQ SKIN/TISSUE 01/13/2015 32044-EGKWFWP SKIN/TISSUE 10/17/2022 02646-KCEO SKIN LESIONS, OVER 4 11/15/19 21 99255-ALIW SKIN LESIONS, OVER 4 10/17/19 74656-RKEZ SKIN LESIONS, OVER 4 03/16/20 21 25549-KOAD SKIN LESIONS, 2 TO 4 11/18/19 20 51832-TVZL SKIN LESIONS, 2 TO 4 11/04/19 18 57102-PLFR SKIN LESIONS, 2 TO 4 12/06/19 17 46557-RPPA SKIN LESIONS, 2 TO 4 02/28/20 23 50365-PQDG SKIN LESIONS, 2 TO 4 11/25/19 66157-DDYW SKIN LESIONS, 2 TO 4 03/30/20 62045-BVYA SKIN LESIONS, 2 TO 4 07/20/20 19 02729-VQKC SKIN LESIONS, 2 TO 4 03/21/20 20 89358-YDIE SKIN LESIONS, 2 TO 4 07/20/20 20 23750-KGZX SKIN LESIONS, 2 TO 4 06/30/20 18 09005-MVLL SKIN LESIONS, 2 TO 4 03/05/20 18 78021-MKXP SKIN LESIONS, 2 TO 4 07/03/20 17 61383-PUPB SKIN LESIONS, 2 TO 4 08/23/20 16 08719-ITOK SKIN LESIONS, 2 TO 4 03/06/20 17 47507-JQAO SKIN LESIONS, 2 TO 4 05/16/20 16 38541-BYOR SKIN LESIONS, 2 TO 4 11/16/19 16 74341-EOXAJRVP OF HEMATOMA/FLUID 023 Next Appt Details Provider Name:Anuradha amado, 08/10/2025 11:00:00 AM, [address] [place], [address], Insurance Providers Payer Name Payer Address Payer Phone Subscriber Number Group Number Insured Name Patient Relationship to Insured Coverage Start Date Coverage End Date [facility] Care Options [address] [place] [address] [phone] [id number] Vladimir Flynn Self - patient is the [...] center left eye cataract surger y 01/22/2017 [facility] [place] passed out for two seconds, lab work was done everything came out fine. 04/2016
--- OUTSIDE RECORDS SUMMARY | 2025-06-22 11:11 | XMS_ITS | Clinical Summary ---
Author Organization [facility] Address [address] [facility] [place] [address] Phone Care Team Providers Care Natural Sciences Department Chair Name Role Phone Kirk Randle MD Primary Care Provider [phone] Allergies Active Allergy Reactions Criticality Noted Date [...] each day. for 360 days. 05/14/20 24 Active warfarin (COUMADIN) 5 mg tablet Take 0.5 tablets (2.5 mg total) by mouth 1 (one) time each day. [facility] 10/08/19 24 Active warfarin (COUMADIN) 5 mg tablet Take 1 tablet (5 mg total) by mouth 1 (one) time each day with dinner. See Admin Instructions. May cause heavy bleeding. Take at same time every day. Do not change dietary habits. [facility] directs coumadin instructions 90 tablet 11 10/20/19 25 Active metoprolol succinate (TOPROL-XL) 25 mg 24 hr tablet TAKE ONE TABLET BY MOUTH EVERY DAY 90 tablet 1 01/19/20 25 Active furosemide (LASIX) 20 mg tablet Take 1 tablet (20 mg total) by mouth 1 (one) time each day. 90 tablet 2 03/08/20 25 Active warfarin (COUMADIN) 2.5 mg tablet Take one tablet daily or as directed per [facility] clinic 90 tablet 1 04/27/20 25 026 Active atorvastatin (LIPITOR) 20 mg tablet TAKE ONE TABLET BY MOUTH EVERY DAY 90 tablet 1 06/16/20 25 Active atorvastatin (LIPITOR) 20 mg tablet TAKE ONE TABLET BY MOUTH EVERY DAY 90 tablet 1 12/17/19 25 025 Discontinued Active Problems Problem Noted Date Diagnosed Date Peripheral arterial disease ([facility] V24) 2022 Cardiomyopathy ([facility] V24, CMS/[facility] V28) 2021 Assessment & Plan [...] 12/12/2018 Overview (08/04/2024): R knee Atrial fibrillation ([facility] V24, CMS/[facility] V28) 0 05/14/2018 Overview (04/19/2025): Jantoven/ warfarin Assessment & Plan (04/19/2025 10:18 AM EDT): Patient has history of atrial fibrillation and continues on chronic anticoagulation with warfarin given elevated [id number] score. He denies any bleeding or excessive [...] (coronary artery disease) 05/14/2018 Overview (04/19/2025): Old MO; Stress test -ve 2010, treated in [facility] in 2003, stents put in. Assessment & [...] Plan: Patient continues to follow closely with [facility] vascular surgery. Assessment & Plan (04/19/2025 10:18 [...] Type Department Care Team Description 04/27/2025 Telephone [facility] Cardiology [facility] [address] [place] [address] Ced Victoria MD 04/19/2025 10:10 AM EDT Office Visit [facility] Cardiology [facility] [address] [place] [address] Virgie Trivedi, GILBERTO Atrial fibrillation, unspecified type (CMS/HCC V24, CMS/HCC V28) (Primary Dx); Coronary artery disease involving [place] coronary artery of [place] heart without angina pectoris; Dilated cardiomyopathy (CMS/HCC V24, CMS/HCC V28); Chronic venous insufficiency; Endocarditis of mitral valve; Mixed hyperlipidemia; Primary hypertension from Last 3 Months Immunizations Immunization Administration Dates Next Due Influenza trivalent, 0.5mL [...] PROCEDURE: HISTORICAL CARDIAC CATH KNEE ARTHROSCOPY PROCEDURE: NV ARTHROSCOPY AID TX SPINE&/FX KNEE W/O FIXJ OTHER SURGICAL HISTORY 05/19/2018 Right PROCEDURE: NV ENDOVEN ABLTJ INCMPTNT VEIN XTR LASER 1ST VEIN TOTAL KNEE ARTHROPLASTY 10/07/2018 Right PROCEDURE: HISTORICAL TOTAL KNEE REPLACE; COMMENT: [facility] - Dr. Cazares EYE SURGERY Bilateral PROCEDURE: HISTORICAL EYE SURGERY; COMMENT: cataracts BYPASS GRAFT 08/16/2022 Right PROCEDURE: NV AMPUTATION TOE METATARSOPHALANGEAL JOINT; COMMENT: R 5th toe OTHER SURGICAL HISTORY 08/16/2022 Right PROCEDURE: NV INCISION BONE CORTEX FOOT; COMMENT: R 5th metatarsal OTHER SURGICAL HISTORY 10/23/2022 PROCEDURE: NV SLCTV CATHJ 3RD+ ORD SLCTV ABDL PEL/LXTR BRNCH OTHER SURGICAL HISTORY 10/23/2022 PROCEDURE: X-RAY EXAM OF ARM/LEG ARTERY OTHER SURGICAL HISTORY 10/23/2022 PROCEDURE: ULTRASOUND GUIDANCE FOR VASCULAR AC OTHER SURGICAL HISTORY 07/09/2023 PROCEDURE: NV REVSC OPN/PRQ TIB/RON W/ANGIOPLASTY UNI OTHER SURGICAL HISTORY 07/09/2023 PROCEDURE: ULTRASOUND GUIDANCE FOR VASCULAR AC Medical History Medical History Date Comments Atrial fibrillation (CMS/HCC V24, CMS/HCC V28) DX:Atrial fibrillation (HCC) Coronary artery disease DX:Coron randy artery disease; COMMENT: Old MO; Stress test -ve 2010, treated in [facility] in 2003, stents put in. Cataracts, bilateral DX:Cataract s, [...] Info) Description 07/14/2025 1:00 PM EST Appointment [facility] Ultrasound [address] [place] [phone] 08/19/2025 2:30 PM EST Office Visit Vascular Surgery - [place] [address] [place] [address] Emerald Macario MD [address] [place] [phone] 09/14/2025 11:00 AM EST Office Visit Internal Medicine - [place] [address] [facility] [address] [place] [phone] Kirk Randle MD [address] [facility] [address] [place] [address] Health Maintenance Due Date Last Done Comments [...] V24, CMS/HCC V28) Coronary artery disease involving [place] coronary artery of [place] heart without angina pectoris Dilated cardiomyopathy (CMS/HCC [...] ms GEMUSE QTc 402 ms GEMUSE R [place] 77 degrees GEMUSE T [place] 6 degrees GEMUSE ECG Interpretation Atrial fibrillation with slow ventricular response with premature ventricular or aberrantly conducted complexes Cannot rule out Inferior infarct (cited on or before 02-APR-2021) Abnormal ECG When compared with ECG of 09-OCT-2024 10:25, No significant change was found Confirmed by ISSA CELIS ([id number]) on 04/19/2025 2:12:02 PM GEMUSE 04/19/2025 9:59 AM EDT 04/19/2025 2:12 PM EDT Virgie Trivedi BLOCKER HAND ECG ORDERABLES Edited Resul t - Final GEMUSE * Lipid panel with reflex to direct LDL (09/30/2024 10:13 AM EST) Cholesterol 117 0 - 200 mg/dL LAB CHEMISTRY METHOD 09/30/2024 1:14 PM EST [facility] Triglycerides 77 0 - 150 mg/dL LAB CHEMISTRY METHOD 09/30/2024 1:14 PM EST [facility] HDL 48 >=40 mg/dL LAB CHEMISTRY METHOD 09/30/2024 1:14 PM [facility] LDL Calculated 54 0 - 100 mg/dL LAB CHEMISTRY METHOD 09/30/2024 1:14 PM [facility] VLDL Cholesterol Ric 15.4 mg/dL LAB CHEMISTRY METHOD 09/30/2024 1:14 PM [facility] Non HDL Chol. (LDL+VLDL) 69 <145 mg/dL LAB CHEMISTRY METHOD 09/30/2024 1:14 PM [facility] Chol/HDL Ratio 2.4 0.0 - 4.4 LAB CHEMISTRY METHOD 09/30/2024 1:14 PM [facility] Blood Venous blood specimen / Unknown Venipuncture / Unknown 09/30/2024 10:13 AM EST 09/30/2024 11:01 AM EST us Kirk Randle MD LAB BLOOD ORDERABLES Final Resul t [facility] [address] [place] [address], [place] [phone] * (ABNORMAL) Comprehensive metabolic panel (09/30/2024 10:13 AM EST) Sodium 140 133 - 145 mmol/L LAB CHEMISTRY METHOD 09/30/2024 1:14 PM [facility] Potassium 4.2 3.5 - 5.5 mmol/L LAB CHEMISTRY METHOD 09/30/2024 1:14 PM [facility] Chloride 106 96 - 110 mmol/L LAB CHEMISTRY METHOD 09/30/2024 1:14 PM [facility] CO2 27 21 - 32 mmol/L LAB CHEMISTRY METHOD 09/30/2024 1:14 PM [facility] Anion Gap 7 3 - 11 LAB CHEMISTRY METHOD 09/30/2024 1:14 PM [facility] Glucose 92 70 - 100 mg/dL LAB CHEMISTRY METHOD 09/30/2024 1:14 PM [facility] BUN 27(H) 5 - 25 mg/dL LAB CHEMISTRY METHOD 09/30/2024 1:14 PM [facility] Creatinine 1.23 0.70 - 1.30 mg/dL LAB CHEMISTRY METHOD 09/30/2024 1:14 PM [facility] eGFR 59(L) >=60 mL/min/1. 73m2 LAB CHEMISTRY METHOD 09/30/2024 1:14 PM [facility] Comment:Calculation based on the Chronic Kidney Disease Epidemiology Collaboration (CKD-EPI) equation refit without adjustment for race. BUN/Creatinine Ratio 22.0 LAB CHEMISTRY METHOD 09/30/2024 1:14 PM [facility] Calcium 9.9 8.5 - 10.5 mg/dL LAB CHEMISTRY METHOD 09/30/2024 1:14 PM [facility] AST (SGOT) 42 10 - 42 unit/L LAB CHEMISTRY METHOD 09/30/2024 1:14 PM [facility] ALT (SGPT) 35 10 - 60 unit/L LAB CHEMISTRY METHOD 09/30/2024 1:14 PM [facility] Alkaline Phosphatase 97 42 - 121 unit/L LAB CHEMISTRY METHOD 09/30/2024 1:14 PM [facility] Total Protein 7.1 6.0 - 8.0 g/dL LAB CHEMISTRY METHOD 09/30/2024 1:14 PM [facility] Albumin 4.0 3.2 - 5.0 g/dL LAB CHEMISTRY METHOD 09/30/2024 1:14 PM [facility] Total Bilirubin 1.2 0.0 - 1.4 mg/dL LAB CHEMISTRY METHOD 09/30/2024 1:14 PM [facility] Blood Venous blood specimen / Unknown Venipuncture / Unknown 09/30/2024 10:13 AM EST 09/30/2024 11:01 AM EST us Kirk Randle MD LAB BLOOD ORDERABLES Final Resul t JEANETTE ASHLEY [facility] ([facility]) [facility] [address] [place] [address], from Last 3 Months or Most Recently Relevant to Health Maintenance Insurance [employer] Advance Directives Documents on File Type Date Recorded 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
== END 2025-06-22 10:19 | disposition home or self-care (01) ==
LOC: HO.ACS 09:51
PROVIDERS: PCP Internal Medicine; Visit Provider Internal Medicine Medical Oncology
DX: Z79.01 Long term (current) use of anticoagulants (principal)

== ENCOUNTER → 2025-06-22 09:51 | Outpatient (BNVA) | payer MEDICARE, SELFPAY | PROVIDERS: PCP Internal Medicine; Visit Provider Internal Medicine Medical Oncology | DX: I48.91 Unspecified atrial fibrillation (principal); Z79.01 Long term (current) use of anticoagulants; Z51.81 Encounter for therapeutic drug level monitoring | CPT/HCPCS: 85610; 99211 ==

== ENCOUNTER 2025-07-06 13:42 | Outpatient (AMB) | payer MEDICARE, SELFPAY ==
--- NOTE | 2025-07-06 14:07 | MHC.OFFVISCO ---
Intake Intake Visit Reasons: Anticoagulation Allergies clopidogrel (From PLAVIX) Allergy (Unknown, Verified 07/06/25 13:47) RASH Medication List - Last Reconciled 07/06/25 by Pat Sepulveda RN acetaminophen ER 650 mg PO Q12H PRN ascorbic acid (vitamin C) 500 mg PO DAILY atorvastatin 20 mg PO DAILY B-complex with vitamin C 1 tab PO DAILY calcium carb-mag ox-zinc sulf 1 tab PO DAILY coenzyme Q10 10 mg PO TID ferrous sulfate 325 mg PO DAILY furosemide 20 mg PO DAILY metoprolol succinate ER 25 mg PO DAILY omega 9-gju-nsf-fish oil 1,000 (120-180) mg (Fish Oil) 1 cap PO DAILY saw palmetto 500 mg PO BID vitamin E 400 units PO DAILY warfarin (Jantoven) 2.5 tabs See Protocol PO MOTUWETHFRSA@0900 Nursing Note NO CP,SOB,DIET/MED CHANGES,FALLS OR SX OF BLEEDING. CONTINUE PRESENT DOSING AND FOLLOW-UP IN 4 WEEKS GOOD UNDERSTANDING OF DOSING INSTR. Anti-Coag Initial Assessment Social Hx Patient Tobacco Use Status: Never used Tobacco alcohol intake: unknown Coding Level of Care Code Est Patient Level 1 Diagnoses Current use of anticoagulant therapy Z79.01 Results AMB INR Fingerstick AMB INR Fingerstick 2.6 Last Edit by Pat Sepulveda RN on 07/06/25 13:54 Assessment & Plan Assessment & Plan (1) Current use of anticoagulant therapy: Code(s): Z79.01 - exterminator termite (current) use of anticoagulants Category: Medical
[2025-07-07 10:14] LABS: Prothrombin Time Whole Bld POC 31.8 sec (11.1-13.5); ~PT, ~INR - Anti Coag Clinic 2.6 (0.9-1.1)
== END 2025-07-06 14:09 | disposition home or self-care (01) ==
LOC: HO.ACS 13:42
PROVIDERS: PCP Internal Medicine; Visit Provider Internal Medicine Medical Oncology
DX: Z79.01 Long term (current) use of anticoagulants (principal)

== ENCOUNTER → 2025-07-06 13:42 | Outpatient (BNVA) | payer MEDICARE, SELFPAY | PROVIDERS: PCP Internal Medicine; Visit Provider Internal Medicine Medical Oncology | DX: H81.10 Benign paroxysmal vertigo, unspecified ear (principal); R26.89 Other abnormalities of gait and mobility; G62.9 Polyneuropathy, unspecified; Z95.2 Presence of prosthetic heart valve; Z79.01 Long term (current) use of anticoagulants; Z51.81 Encounter for therapeutic drug level monitoring | CPT/HCPCS: 85610; 99202; 99211 ==

== ENCOUNTER 2025-07-06 14:19 | Outpatient (AMB) | payer MEDICARE, SELFPAY ==
--- NOTE | 2025-07-06 14:47 | A.OFFVIS_ITS ---
Intake Visit Reasons: R/O vertigo Allergies clopidogrel (From PLAVIX) Allergy (Unknown, Verified 07/06/25 13:47) RASH HPI Comments Details: 85 years old man with history of atrial fibrillation on Coumadin, coronary artery disease status post angioplasty, and then admission in [facility] in 2020 related to endocarditis and septic cerebral embolization resulting in multiple small bilateral anterior posterior circulation area ischemic type lesions. Underlying brain and mild diffuse cerebral and cerebellar atrophy. This time he was here for complain of dizziness that was described as a feeling of lightheadedness and could happened if he rolled over in the bed or if he bent down or stood up quickly. It typically lasted for few sec to minutes. He had seen an ENT doctor who did not find any significant problem other than vacs that was removed. He said that his walking has not been as good as before since 2020. At that time, he stayed in hospital for multiple weeks. He said that he almost had to learn to walk again after that hospitalization. [facility]LY [facility] Medical History (Updated 07/06/25 @ 15:08 by Gagan West MD) Diverticulosis HTN (hypertension) Hyperlipemia Osteoarthritis Mitral regurgitation Cardiomyopathy Wound of foot Osteomyelitis Osteomyelitis Endocarditis due to Staphylococcus DVT of right axillary vein, acute Dementia Atrial fibrillation Bacteremia Surgical History (Updated 07/02/25 @ 13:43 by NAHED Rosenberg) H/O arthroscopic knee surgery H/O eye surgery H/O cardiac catheterization Family History (Updated 07/02/25 @ 13:45 by NAHED Rosenberg) Father CAD (coronary artery disease) Alcohol abuse Mother Leukemia Brother Cancer of kidney Sister Atrial fibrillation Social History Household Members: Friend(s) [facility] Alcohol intake: unknown Patient Tobacco Use Status: Never used Tobacco Substance Use Type: Marijuana service: No Current occupational status: retired Review of Systems Narrative Constitutional:?No fever, chills, fatigue, weight loss, or night sweats. HEENT:?No headache, vision changes, hearing loss, nasal congestion, sore throat. Cardiovascular:?No chest pain, palpitations, orthopnea, PND, or leg swelling. Respiratory:?No cough, shortness of breath, wheezing, or hemoptysis. Gastrointestinal:?No nausea, vomiting, abdominal pain, diarrhea, or constipation. Genitourinary:?No dysuria, frequency, incontinence, or hematuria. Musculoskeletal:?No joint pain, stiffness, weakness, or muscle aches. Neurological:?No dizziness, syncope, seizures, numbness, tingling, weakness, tremors, memory loss. Psychiatric:?No anxiety, depression, mood swings, sleep disturbance, or hallucinations. Endocrine:?No heat/cold intolerance, polydipsia, polyuria, or hair/skin changes. Hematologic/Lymphatic:?No easy bruising, bleeding, or lymphadenopathy. Integumentary (Skin):?No rash, lesions, itching, or color changes. Allergic/Immunologic:?No seasonal allergies, hives, or recurrent infections. Physical Exam Neuro Other: Mental Status: Alert and oriented to person, place, and time. Normal attention. Normal spontane ous speech, fluency, and comprehension. No obvious issues with mood and memory. Affect is appropriate. Cranial Nerves: CN II: Visual sheth full to confrontation, visual acuity intact. CN III, IV, : Pupils equal, round, reactive to light and accommodation. Extraocular movements are normal. CN V: Facial sensation is normal. CN VII: Facial movements symmetrical. CN VIII: Hearing intact to bedside conversation is normal. CN IX, X: Palate elevates symmetrically. CN XI: Shoulder shrug and head turn symmetrical. CN XII: Tongue midline without atrophy or fasciculations. Motor: Deep tendon reflexes are absent. Coordination: [id number] is okay. Gait and Station: Wide-based and cautious with a cane. Sensory: Romberg is positive. Extrapyramidal: Full facial expressions and blinking. No rigidity. Movements are appropriate with no tremor or abnormality. Speech: Normal; no dysarthria or tremor. Results AMB INR Fingerstick AMB INR Fingerstick 2.6 Last Edit by Pat Sepulveda RN on 07/06/25 13:54 Assessment & Plan Assessment & Plan (1) Benign positional vertigo: Comment: CT brain WO at [facility] in 2020: Mild diff cerebral and cerebellar atrophy MRI brain WO at [facility] in 2020: Multiple b/l small ischemic lesions with atrophy as described above MR C Spine at [facility] in 2020: Mod multilevel spondylitic stenosis but no myelomalacia Code(s): H81.10 - Benign paroxysmal vertigo, unspecified ear Category: Medical Qualifiers: Laterality: unspecified laterality Qualified Code(s): H81.10 - Benign paroxysmal vertigo, unspecified ear (2) Peripheral neuropathy: Code(s): G62.9 - Polyneuropathy, unspecified Category: Medical Qualifiers: Peripheral neuropathy type: polyneuropathy, unspecified Qualified Code(s): G62.9 - Polyneuropathy, unspecified (3) Multifactorial gait disorder: Code(s): R26.89 - Other abnormalities of gait and mobility Category: Medical Plan 85 years old man with atrial fibrillation on anticoagulation, who suffered from endocarditis in 2020 [address] he was admitted [facility] and had prolonged hospitalization. His brain MRI at that time revealed multiple small lesions that were considered to be septic embolization. After hospitalization, he had to learn to walk again and now was using a cane. His examination revealed loss of reflexes in legs and arms. Romberg was positive. He was here with complain of brief episodes of dizziness that were suggestive of benign paroxysmal positional vertigo. He was educated about this concept and was advised to be careful and utilize meclizine 12.5 mg on as needed basis. 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 In addition, changes brain also had an impact. Cognitively speaking, he had not noted any problem with his memory. Orders: Orders NE electromyogram (EMG) Today G62.9 - Polyneuropathy, unspecified NE nerve conduction velocity Today G62.9 - Polyneuropathy, unspecified Medications: New meclizine 12.5 mg orally once a day as needed for dizziness PRN; 30 tabs 0RF dizziness Coding Level of Care Code New Pt Level 5 (28871) Diagnoses Benign paroxysmal positional vertigo, unspecified laterality H81.10 Laterality: unspecified laterality Peripheral polyneuropathy G62.9 Peripheral neuropathy type: polyneuropathy, unspecified Multifactorial gait disorder R26.89
--- OUTSIDE RECORDS SUMMARY | 2025-07-06 18:40 | XMS_ITS | Data Portability ---
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 I was unable to fully remove the left ball of wax due to its location in the mid canal and firmness. Patient is encouraged to avoid Q-tips in their ears relative to packing the wax in tighter. They may use the corner of their bath towel to gently clean the external ears as needed. I also encouraged the use of either mineral oil, baby oil, or sweet oil weekly. I provided instructions which include leaving the affected ear up towards the ayaka to let the oil soak for 2 to 3 minutes, followed by drainage by turning the head contralaterally. The patient has evidence today of significant hearing loss in both ears, as noted above. We discussed that the patient would be an excellent candidate for hearing amplification and discussed its benefits which include improved hearing, potential tinnitus reduction, reduction in the rate of cognitive decline, and reduction in the prevalence of depression or mental health disorders. Otologic examination today does not reveal any contraindications for the use of hearing amplification. the patient declined at this time. - Return visit in 2 weeks for left cerumen removal [email or web address] Not available 05/31/2025 12:36:12 06/14/2025 06/14/2025 I was able to remove the very large left hard piece of wax that was retained from last visit. This was improved with use of baby oil/olive oil. Ears were meticulously cleaned bilaterally today with fine pics, curettes and/or suction. We previously discussed that he is a hearing aid candidate but not interested in this time per patient. Continue with mineral oil use q. weekly. He would like to be on a schedule for this because of how uncomfortable his removal is with a significant amount of impaction. I think this is reasonable. - Return visit 6 months for cerumen check [email or web address] Not available 06/14/2025 11:24:30 Plan of Treatment Reminders Order Date Submit Date Provider Last Modified By Organization Details Last Modified Time Details Appointments Establish ed 15 2025 11:30A Jered Gomez, DO Not available Not available Not available Lab None recorded. Referral None recorded. Procedures None recorded. Surgeries None recorded. Imaging None recorded. Medication Orders None recorded. Patient TargetsNo targets recorded. Patient Instructions Encounter Date Encounter Id Patient Instructions Last Modified By Organization Details Last Modified Time 06/14/2025 [id number] The patient has evidence today of significant hearing loss in both ears, as noted above. We discussed that the patient would be an excellent candidate for hearing amplification and discussed its benefits which include improved hearing, potential tinnitus reduction, reduction in the rate of cognitive decline, and reduction in the prevalence of depression or mental health disorders. Otologic examination today does not reveal any contraindications for the use of hearing amplification. the patient declined at this time. [email or web address] Not available 06/14/2025 08:53:21 Reason for Referral None Reported. Results Created Date Observation Date Name Description Value Unit Range Abnormal Flag Note LastModifiedBy Organization Detail LastModifiedTime 05/31/20 25 audio gram No observ ation record ed. BARCODE Not Available 2024 15:16:48 Result Notes None recorded. Problems Name Problem SNOMED Code Status Onset Date Resolution Date Notes Provider Name and Address Organization Details Recorded Time Diverticula r disease 785199870 Active 2015 Judy ferro [place] - [facility] 5 11:08:46 Benign prostatic hyperplasia 340899719 Active 2016 JOSEFA Valdez [facility] 5 11:08:46 Non-toxic multinodula r goiter 26401830 Active 2017 Judy ferro [place] - [facility] 5 11:08:46 Venous varices 857482293 Active 2017 Judy ferro [place] - [facility] 5 11:08:46 Peripheral venous insufficien cy 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 Active 2017 Judy ferro [place] - [facility] 5 11:08:46 Hypertensiv e disorder 07091066 Active 2017 Judy ferro [place] - [facility] 5 11:08:46 Atrial fibrillatio n 16960414 Active 2017 Judy ferro [place] - [facility] 11:08:46 Coronary arterioscle rosis 66498262 Active 2017 Judy ferro [place] - [facility] 11:08:46 Hyperlipide ezequiel 88426000 Active 2017 Judy ferro [place] - [facility] 11:08:46 History of right total knee replacement 1858534630277 102 Active 2018 Judy ferro [place] - [facility] 11:08:46 Osteoarthri tis 797654758 Active 2018 Judy ferro [place] - [facility] 5 11:08:46 Endocarditi s 63341197 Active 2020 Judy ferro [place] - [facility] 5 11:08:46 Mitral valve regurgitati on 30083171 Active 2021 Judy ferro [place] - [facility] 5 11:08:46 Cardiomyopa thy 45762641 Active 2021 Judy ferro [place] - [facility] 5 11:08:47 Peripheral arterial disease 064896599 Active 2022 Judy ferro [place] - [facility] 5 11:08:46 Sensorineur al hearing loss of bilateral ears 990191750 Active 2024 Jarad Gomez, [address] [address], [place], [address], [place] - [facility] 5 12:01:56 Impacted cerumen of bilateral ears 3544488040235 108 Active 2024 Jarad Jason, DO [address] [facility], [place], [address], [place] - [facility] 12:01:53 Problem Notes None recorded. Procedures Surgical History Date Name Laterality Status Provider Name and Address Organization Details Recorded Time Cerumen removal without microscope left completed Jarad Gomez, [address] [facility],[address], [address], [facility] 06/14/2025 08:53:01 Comp Audio with Tymps - 18137 & 96165 completed MICHELLE DELONG, AUD [address] [facility],[address] [address], [place], [address], [facility] 05/31/2025 10:43:31 Cerumen removal with microscope bilateral completed Jarad Gomez, [address] [facility],[address] [address], [place], [address], [facility] 05/31/2025 12:35:31 Imaging Results None recorded. Procedure Notes None recorded. Medical Equipment None Reported. Allergies Allergen ID Allergen Name Allergen Category Reaction Reaction Severity Criticality Documentation Date Start Date Code Code System Note Provider Name and Address Organization Details Recorded Time 518314 clopidogr el medicatio n rash Not available Not available 06/14/20252009 61594 RxNorm Judy ferroKARNACK, [place] - [facility] 11:08:33 Medications Name Sig Start Date Stop Date Status Note LastModified by Organization Details LastModified Time acetaminophen 325 mg tablet 650 mg every 6 hours by oral route. 2022 active Not Available Not Available Not Avai lable atorvastatin 20 mg tablet 20 mg by oral route. 2024 active Not Available Not Available Not Avai lable warfarin 5 mg tablet 5 mg by oral route. 2023 active Not Available Not Available Not Avai lable furosemide 20 mg tablet 20 mg by oral route. 2023 active Not Available Not Available Not Avai lable metoprolol succinate ER 25 mg tablet,extende d release 24 hr 25 mg by oral route. 2024 active Not Available Not Available Not Avai lable fluticasone propionate 50 mcg/actuation nasal spray,suspensi on 2 {spray }s by nasal route. 05/10 completed Not Available Not Available Not Available Vitals Date Recorded Body height Body mass index (BMI) Body weight Provider Name and Address Organization Details Last Updated DateTime 05/31/2025 190.5 cm 26.9 kg/m2 39320.36 g Mariluz No [place] - [facility] 05/31/2025 11:11:47 Social History None recorded. Functional Status None recorded. Mental Status None recorded. Family History Nothing Reported. Medical History No medical history recorded. Immunizations Vaccine Type Date Status Note Provider Nam e and Address Organization Details Recorded Time Influenza, adjuvanted, trivalent, PF 9 completed Judy ferro [facility] 06/14/2025 11:08:51 COVID-19, mRNA, LNP-S, PF, 100 mcg/0.5mL dose or 50 mcg/0.25mL dose 1 completed Judy ferro [facility] 06/14/2025 11:08:51 COVID-19, mRNA, LNP-S, PF, 100 mcg/0.5mL dose or 50 mcg/0.25mL dose 1 completed Judy ferro [facility] 06/14/2025 11:08:51 pneumococcal polysaccharide PPV23 7 completed Judy ferro [facility] 06/14/2025 11:08:51 Pneumococcal conjugate PCV 13 5 completed Judy ferro [facility] 06/14/2025 11:08:51 Influenza, split virus, trivalent, PF 0 completed Judy ferro [facility] 06/14/2025 11:08:51 Past Encounters Encounter ID Performer Location Encounter Start Date Encounter Closed Date Diagnosis/Indication Diagnosis SNOMED-CT Code Diagnosis ICD10 Code Diagnosis IMO Codes Diagnosis Note [id number] Jarad Gomez DO [facility] [address] [address] 05/31/2025 10:04:09 05/31/2025 12:02:32 Sensorineural hearing loss of bilateral ears 254284770 H90.3 77287750 [id number] Audiologic al evaluation results: Right ear: Normal sloping to severe sensorineu ral hearing loss with good word recognitio n. Left ear: Normal sloping to severe sensorineu ral hearing loss with excellent word recognitio n. Tympanomet ry: Right Ear:Type A Left Ear:Type A Impacted c erumen of bilateral ears 2626543572 165866 H61.23 [id number] Jarad Gomez DO [facility] [address] [address] 06/14/2025 10:57:48 06/14/2025 11:25:59 Sensorineural hearing loss of bilateral ears 557179359 H90.3 [id number] Impacted c erumen of bilateral ears 9495526201 480370 H61.23 372157 Health Concerns Section Related Observation LastModified by Organization Detai ls LastModified Time None Recorded Concern Status LastModified by Organization Details LastModified Time None Recorded Advance Directives Directive None Recorded Payers Insurance Date Sequence Insurance Name Policy Number Policy Flores Covered Member ID Flores Member ID Guarantor Name 04/20/2025 1 [facility] [id number] Vladimir Flynn 06/14/2025 1 [facility] - MEDICARE PREFERRED (MEDICARE REPLACEMENT HMO) [facility] Flynn [id number] Vladimir Flynn Notes Date Note Type Note Provider Name and Address Organization Details Recorded Time 05/31/2025 text/html ROS as noted in the HPI The patient presents today for cerumen removal. They Endorse aural fullness. They Endorse otaliga AU. They Endorse hearing loss AU. They deny symptoms of , autophony, and tinnitus. He has a history of intermittent vertigo but has not had an episode recently. Prior Audiogram: None Jarad Gomez, DO [address] [facility],[address] [address], [place], [address], [facility] 05/31/2025 12:36:36 06/14/2025 text/html ROS as noted in the HPI Here for follow-up of cerumen impaction. Last few weeks I was unable to get a very large ball of cerumen out of the left ear. I had him try baby oil which has helped a little bit per patient. Previous visit: The patient presents today for cerumen removal. They Endorse aural fullness. They Endorse otaliga . They Endorse hearing loss . They deny symptoms of , autophony, and tinnitus. He has a history of intermittent vertigo but has not had an episode recently. Prior Audiogram: None Jarad Gomez, DO [address] [facility],[address] [address], [place], [address], [facility] 06/14/2025 11:25:00
--- OUTSIDE RECORDS SUMMARY | 2025-07-06 18:40 | XMS_ITS | Patient Health Record ---
[facility] Ari[facility] Llamas[facility] Address [address] [place] [address] Care Team Providers Care Editor Trade Journal Name Role Phone Kirk Randle MD Primary Care Provider Unavailab Anuradha Hobbs Unavailable [phone] Allergies Allergen (clinical drug ingredient) Drug/Non Drug Allergy documented on EMR Reaction Allergy Type Onset Date Status clopidogrel Plavix rash Drug Allergy Activ e Reason For Referral Diagnosis 1 Tinea unguium (B35.1 ) Diagnosis 2 Other hammer toe(s) (acquired), left foot (M20.42) Diagnosis 3 Unspecified atherosc lerosis of [place] arteries of extremities, bilateral legs (I70.203) Diagnosis [...] Referring Provider Last Name Jer Referred Organization [facility] Jamal Referred Provider Anuradha Hermosillo Referred Address [address],[place], [place],[address], Referred Provider Specialty Podiatry Referral Priority Routine [...] Administered 1st 10/11/2020,11/08/202020,2021 Influenza Unknown 06/30/2022 Administered Influenza Unknown 06/09/2024 Administered Social History Tobacco Use: Social History [...] atherosclerosis of arteries of lower limbs (disorder) ([id number] ) Unspecified atherosclerosis of [place] arteries of extremities, bilateral legs (I70.203) Active confirmed Vital Signs Blood pressure diastolic 75 mm Hg 05/07/2025 Height 6 ft 3 in in 05/07/2025 Blood pressure systolic 115 mm Hg 05/07/2025 Weight 217 lbs 05/07/2025 BMI 27.12 kg/m2 05/07/2025 Encounters Encounter Location Date Provider Diagnosis [address] [address] 08/21/2024 Anuradha Hermosillo Tinea unguium B35.1 ; Unspecified atherosclerosis of [place] arteries of extremities, bilateral legs I70.203 ; Pain in right toe(s) M79.674 ; Pain in left toe(s) M79.675 ; Other hammer toe(s) (acquired), left foot M20.42 ; Other hammer toe(s) (acquired), right foot M20.41 ; Venous insufficiency I87.2 and Ischemic ulcer of left foot, limited to breakdown of skin L97.[address] [address] 10/20/2024 Anuradha Hermosillo Ischemic ulcer of le ft heel, limited to breakdown of skin L97.421 ; Xerosis of skin L85.3 ; Unspecified atherosclerosis of [place] arteries of extremities, bilateral legs I70.203 ; Other hammer toe(s) (acquired), left foot M20.42 ; Other hammer toe(s) (acquired), right foot M20.41 and Ischemic ulcer of right heel, limited to breakdown of skin L97.[address] [address] 11/20/2024 Anuradha Hermosillo Ischemic ulcer of le ft heel, limited to breakdown of skin L97.421 ; Xerosis of skin L85.3 ; Unspecified atherosclerosis of [place] arteries of extremities, bilateral legs I70.203 ; Other hammer toe(s) (acquired), left foot M20.42 and Other hammer toe(s) (acquired), right foot M20.[address] [address] 12/22/2024 Anuradha Hermosillo Unspecified atherosclerosis of [place] arteries of extremities, bilateral legs I70.203 ; Xerosis of skin L85.3 ; Tinea unguium B35.1 ; Pain in right toe(s) M79.674 ; Pain in left toe(s) M79.675 ; Other hammer toe(s) (acquired), left foot M20.42 ; Other hammer toe(s) (acquired), right foot M20.41 and Venous insufficiency I87.[address] [address] 02/23/2025 Anuradha Hermosillo Unspecified atherosclerosis of [place] arteries of extremities, bilateral legs I70.203 ; Tinea unguium B35.1 ; Pain in right toe(s) M79.674 and Pain in left toe(s) M79.[address] [address] 05/07/2025 Anuradha Hermosillo Unspecified atherosclerosis of [place] arteries of extremities, bilateral legs I70.203 ; Tinea unguium B35.1 ; Pain in right toe(s) M79.674 and Pain in left toe(s) M79.[address] [address] 10/16/2024 Anuradha Hermosillo [address] [address] 10/21/2024 Anuradha Hermosillo [address] [address] 11/02/2024 Anuradha Hermosillo Assessments Encounter Date Diagnosis [...] CARE INSTRUCTIONS. pdf) 12/22/2024 Unspecified atherosclerosis of [place] arteries of extremities, bilateral legs (ICD-10 - I70.203) 12/22/2024 Xerosis of skin (ICD-10 - L85.3) 02/23/2025 Tinea unguium (ICD-10 - B35.1) 02/23/2025 Unspecified atherosclerosis of [place] arteries of extremities, bilateral legs (ICD-10 - I70.203) 05/07/2025 Unspecified atherosclerosis of [place] arteries of extremities, bilateral legs (ICD-10 - I70.203) 05/07/2025 Tinea unguium (ICD-10 - B35.1) 02/23/2025 Pain in right toe(s) (ICD-10 - M79.674) 12/22/2024 Tinea unguium (ICD-10 - B35.1) 11/20/2024 Unspecified atherosclerosis of [place] arteries of extremities, bilateral legs (ICD-10 - I70.203) 08/21/2024 Unspecified atherosclerosis of [place] arteries of extremities, bilateral legs (ICD-10 - I70.203) 10/20/2024 Unspecified atherosclerosis of [place] arteries of extremities, bilateral legs (ICD-10 - [...] X ray : Foot, left 2V 09/14/2015 44697-JQUKZWO NAIL, 6 OR MORE 11/16/2015 75682-FBIPLCB NAIL, 6 OR MORE 05/16/2016 28702-MSVWKWE NAIL, 6 OR MORE 08/23/2016 17308-NDUAOSS NAIL, 6 OR MORE 12/05/2016 39236-GTFOSUM NAIL, 6 OR MORE 03/06/2017 52945-WGSZGVO NAIL, 6 OR MORE 07/03/2017 99061-KNCLKBX NAIL, 6 OR MORE 03/10/2015 28648-KADXPNN NAIL, 6 OR MORE 06/13/2015 92998-DFZCOTF NAIL, 6 OR MORE 10/01/2013 99494-TBKEGKN NAIL, 6 OR MORE 01/13/2015 19324-TEOMWTW NAIL, 6 OR MORE 06/30/2018 61953-OZDFJGH NAIL, 6 OR MORE 11/04/2017 04773-IVJGQUA NAIL, 6 OR MORE 03/05/2018 57850-Hvpk Destruction, 1-14 01/27/2015 16129-Lblq Destruction, 1-14 01/13/2015 51391-Nyot Destruction, 1-14 03/10/2015 69026-Ynvu Destruction, 1-14 06/13/2015 61007-Emtxkhql Plate 06/13/2015 46955-Qpgnuhde Plate 03/10/2015 86731-Ysxqarjm Plate 06/30/2018 60545- Debride <25 sq cm 03/10/2015 17877- Debride <25 sq cm 01/27/2015 27787- Debride <25 sq cm 08/24/2015 79381- Debride <25 sq cm 09/05/2015 13159- Debride <25 sq cm 09/14/2015 87394-MSIYNSH SKIN/TISSUE 01/13/2015 14266-SJPUYRH SKIN/TISSUE 07/20/2015 86203-VHFXRUY SKIN/TISSUE 06/27/2015 66062-RETYLNI SKIN/TISSUE 07/04/2015 92464-XLEYSXM SKIN/TISSUE 10/17/2022 78992-NEQC SKIN LESIONS, OVER 4 11/15/19 21 44532-IIIE SKIN LESIONS, OVER 4 03/16/20 21 00687-SRHX SKIN LESIONS, OVER 4 10/17/19 43911-DVNP SKIN LESIONS, 2 TO 4 06/30/20 18 70933-QTAX SKIN LESIONS, 2 TO 4 03/05/20 18 50673-VLNM SKIN LESIONS, 2 TO 4 11/25/19 25848-BUTG SKIN LESIONS, 2 TO 4 03/30/20 22656-ZPDL SKIN LESIONS, 2 TO 4 07/20/20 06011-UWSF SKIN LESIONS, 2 TO 4 11/18/19 87793-ZBCJ SKIN LESIONS, 2 TO 4 03/21/20 20 04856-MCCR SKIN LESIONS, 2 TO 4 07/20/20 20 80656-VULT SKIN LESIONS, 2 TO 4 02/28/20 23 56307-RQMV SKIN LESIONS, 2 TO 4 05/16/20 16 06897-UZES SKIN LESIONS, 2 TO 4 11/16/19 16 00388-VLPC SKIN LESIONS, 2 TO 4 11/04/19 18 86948-SGGV SKIN LESIONS, 2 TO 4 07/03/20 17 91679-NPTK SKIN LESIONS, 2 TO 4 12/06/19 17 66070-DHWP SKIN LESIONS, 2 TO 4 03/06/20 17 71575-LDFJ SKIN LESIONS, 2 TO 4 08/23/20 16 69615-CQYZBGXP OF HEMATOMA/FLUID 023 Next Appt Details Provider Name:Anuradha amado, 08/10/2025 11:00:00 AM, [address] [place], [address], Insurance Providers Payer Name Payer Address Payer Phone Subscriber Number Group Number Insured Name Patient Relationship to Insured Coverage Start Date Coverage End Date [facility] Options [address] [place] [phone] [id number] Vladimir Flynn Self - patient is the [...] center left eye cataract surger y 01/22/2017 [facility] pt passed out for two seconds, lab work was done everything came out fine. 04/2016
--- OUTSIDE RECORDS SUMMARY | 2025-07-06 18:40 | XMS_ITS | Data Portability ---
Author Organization [facility] [employer] [facility], Main Office Address [address], [address] [place] [address] Care Team Providers Care [place] L[place] Name Role Phone BARI AMIN - 2ND FLOOR OTHER Assessment Encounter Date Assessment Date Assessment LastModified by Organization Details LastModified Time 05/23/2021 05/23/202105/23 wbc 7.2, hgb 13.6, plt 262, na 142, k 3.7, creat 0.8, sed rate 24, crp 3.76 [email or web address] Not available 05/23/2021 12:08:48 Plan of Treatment [...] By Organization Details Last Modified Time 05/23/2021 [id number] exam of pt, revi ew of chart, discussion with social work, interventional radiology 50 minutes [email or web address] Not available 05/23/2021 12:09:48 Reason for Referral None Reported. Problems Name Problem SNOMED Code Status Onset Date Resolution Date Notes Provider Name and Address Organization Details Recorded Time Osteoarthri tis of left knee joint 5682922065338 09 Active 2018 Feliz Gonzalez MD [address] [facility], [address], [place], [address], [facility] 9 15:05:21 Essential hypertensio n 31831393 Active 2018 Feliz Gonzalez MD [address] [facility], [address], [place], [address], [facility] 9 15:05:25 Mixed hyperlipide ezequiel 869261976 Active 2018 Feliz Gonzalez MD [address], [address], [place], [address], [facility] 9 15:05:33 Unsteady gait Active 2018 Feliz Gonzalez MD [address], [address], [place], [address], [facility] 9 15:05:38 Atrial fibrillatio n 07524003 Active 2018 STACY SULLIVAN [address], [address], [place], [address], [facility] 9 08:43:44 Infective endocarditi s 816421516 Active 2020 STACY SULLIVAN [address], [address], [place], [address], [facility] 1 08:27:08 Osteoarthri tis 230841272 Active 2020 STACY SULLIVAN [address], [address], [place], [address], [facility] 1 08:27:39 History of cerebrovasc ular accident 964241964 Active 2020 STACY SULLIVAN [address], [address], [place], [address], [facility] 1 08:28:06 Recurrent falls 442862376 Active 2020 STACY SULLIVAN [address], [address], [place], [address], [facility] 1 08:28:20 Pressure ulcer Active 2020 STACY SULLIVAN [address], [address], [place], [address], [facility] 1 08:30:05 Deep venous thrombosis of upper extremity 274322392 Active 2020 STACY SULLIVAN [address], [address], [place], [address], [email or web address] 08:30:52 Multinodula r goiter 311071916 Active 2020 KYREE SULLIVANP [address] [facility], [address], [place], [address], [facility] 08:32:27 Hypomagnese ezequiel 967054358 Active 2020 KYREE SULLIVANP [address] [facility], [address], [place], [address], [facility] 08:57:53 Asthenia 65688421 Active 2020 Rosenda ferro, [place] [facility] 11:24:32 Problem Notes None recorded. Procedures Surgical History Date Name Laterality Status Provider Name and Address Organization Details Recorded Time percutaneous transluminal coronary angioplasty completed KYREE SULLIVANP [address] [place] [address], [address], [place], [address], [employer] [facility] 05/05/2021 08:29:08 Imaging Results None recorded. Procedure Notes None recorded. Medical Equipment None Reported. Allergies Allergen ID Allergen Name Allergen Category Reaction Reaction Severity Criticality Documentation Date Start Date Code Code System Note Provider Name and Address Organization Details Recorded Time 61450 Plavix medicatio n rash severe Not available 10/13/2018 90737 2 RxNorm STACY SULLIVAN [address] [facility], [address], [place], [address], [facility] 9 08:21:26 Medications Not known to be on any medication Vitals Date Recorded Systolic And Diastolic Provider Name and Address Organization Details Last Updated DateTime 05/10/2021 124/65 mm[Hg] Feliz Gonzalez MD [address] [facility], [address], [place], [address], [facility] 05/10/2021 12:55:10 Date Recorded Body temperature Heart rate Respiratory rate Oxygen saturation Oxygen saturation in Arterial blood by Pulse oximetry Systolic And Diastolic Provider Name and Address Organization Details Last Updated DateTime 97.2 [degF] 79 /min 18 /min 96 % 96 % 145/73 mm[Hg] Rosenda bower [facility] 1 11:13:36 Date Recorded Systolic And Diastolic Provider Name and Address Organization Details Last Updated DateTime 05/17/2021 104/74 mm[Hg] Feliz Gonzalez MD [address] [facility], [address], [place], [address], [facility] 05/17/2021 15:20:50 Date Recorded Heart rate Respiratory rate Body temperature Oxygen saturation Oxygen saturation in Arterial blood by Pulse oximetry Systolic And Diastolic Provider Name and Address Organization Details Last Updated DateTime 1 73 /min 18 /min 97.4 [degF] 93 % 93 % 129/89 mm[Hg] HERMINIA DENSON NP [address] [facility], [address], [place], [address], [facility] 1 14:20:11 Date Recorded Body temperature Oxygen saturation Oxygen saturation in Arterial blood by Pulse oximetry Heart rate Respiratory rate Systolic And Diastolic Provider Name and Address Organization Details Last Updated DateTime 1 96.6 [degF] 97 % 97 % 89 /min 18 /min 124/81 mm[Hg] STACY eWber [address] [facility], [address], [place], [address], [facility] 1 11:12:09 Social History Question Answer Notes LastModified by Organizat ion Details LastModified Time Tobacco Smoking Status Never Smoker Not Available [facility] 07/05/2020 03:13:23 Do You Have An Advance Directive? Yes FULL CODE/use Dialysis/unde cided About Nutrition/use Hydration Information not available 05/05/2021 What Is Your Code Status? Full Code Information not available 05/05/2021 Legal Guardian? No Information not available 05/05/2021 Do You Have A Medical Power Of Mine [employer]? Yes HCP On File Information not available 05/05/2021 Has Tobacco Cessation Counseling Been Provided? No NA Information not available 05/05/2021 Sex: Unknown Functional Status Question Answer Note LastModified by Organizat ion Details LastModified Time Do you or have you ever used any other forms of tobacco or nicotine? No Information not available 05/05/2021 What is your level of alcohol consumption? Occasional [id number] Information not available 07/05/2020 Mental Status Question Answer Note LastModified by Organization D etails LastModified Time Do you feel stressed (tense, restless, nervous, or anxious, or unable to sleep at night)? [id number] Information not available 05/05/2021 Family History Nothing Reported Notes:N/C Medical History No medical history recorded. Immunizations Vaccine Type Date Status Note Provider Nam e and Address Organization Details Recorded Time COVID-19, mRNA, LNP-S, PF, 100 mcg/0.5mL dose or 50 mcg/0.25mL dose 10/11/2020 completed STACY SULLIVAN [address] [facility], [address], [place], [address], [facility] 05/05/2021 11:09:25 COVID-19, mRNA, LNP-S, PF, 100 mcg/0.5mL dose or 50 mcg/0.25mL dose 11/08/2020 completed STACY SULLIVAN [address] [facility], [address], [place], [address], [facility] [employer] [facility] 05/05/2021 11:09:40 influenza, unspecified formulation 09/08/2018 [facility] 15:12:21 Past Encounters Encounter ID Performer Location Encounter Start Date Encounter Closed Date Diagnosis/Indication Diagnosis SNOMED-CT Code Diagnosis ICD10 Code Diagnosis IMO Codes Diagnosis Note [id number] Feliz Gonzalez MD [address] [address] 10/10/2018 14:54:06 10/28/2018 16:15:02 Osteoarthritis of left knee joint 8661250288 01418 M17.12 end stage OA now s/p TKR leftfollow ortho recsPT OT eval and treatmonit or for pain control and constipati onmonitor and adjust coumadin for DVT prophylaxi sgiven sub-therap utic INR will add lovenox 40 mg sc qd till theraputic Essential hypertension 19784991 I10 metoprolol 25 mg qdmonitor bp Mixed hyperlipidemia 267 099358 E78.2 simvastati n 40 mg qdcontinue Unsteady gait 157962114 R26.81 PT OT eval and treat [id number] STACY SULLIVAN [address] [address] 10/13/2018 08:02:37 10/28/2018 16:16:29 Osteoarthritis of left knee joint 7559861306 13203 M17.12 follow ortho recsmonito r and adjust coumadinlo venox 40 mg sc qd till theraputic follow up with ortho and PCP Essential hypertension 88653442 I10 metoprolol 25 mg qdfollow up with PCP Mixed hyperlipidemia 267 675140 E78.2 simvastati n 40 mg qdfollow up with PCP Unsteady gait 520153643 R26.81 follow up with PCP Atrial fibrillation 4943 6004 I48.2 coumadin therapymon itor INRscontin ue lovenox til over 2follow up with cardiology and PCP [id number] [facility] [address] 05/05/2021 08:21:13 05/10/2021 15:30:51 Infective endocarditis 171415137 I33.0 nafcillin 2 gm IV q 4 hrs with stop date of 05/22/21pro biotic bidPICC line monitoring monitor labs Osteoarthritis 548535528 M15.0 tylenol 650 mg q 4 hrs prnmonitor pain Mixed hyperlipidemia 267 002308 E78.2 simvastati n 20 mg qdmonitor labs Essential hypertension 96822695 I10 metoprolol tartrate 25 mg bidlasix 20 mg qdklor con 20 meq qdmonitor b/p and labs Atrial fibrillation 4943 6004 I48.19 metoprolol tartrate 25 mg bidcoumadi n therapymon itor INRs History of cerebrovascular accident 030495893 Z86.73 metoprolol tartrate 25 mg bidcoumadi n therapyato rvastatin 20 mg qdmonitor Recurrent falls 77991481 2 R29.6 PT/OT eval and treatmonit or for safety Pressure ulcer 965620166 L89.90 multivitam in with mineralsvi tamin C 500 mg qdwound care as orderedmon itor frequently use pressure relief devices Deep venou s thrombosis of upper extremity 057400524 I82.621 coumadin therapymon itor INRs Multinodular goiter 2375 10121 E04.2 noted in historymon itor Hypomagnesemia 635464408 E83.42 magnesium 400 mg qdmonitor labs [id number] STACY SULLIVAN [facility] [address] [address] 05/08/2021 10:39:43 05/11/2021 08:35:04 Infective endocarditis 446189971 I33.0 nafcillin 2 gm IV q 4 hrs with stop date of 05/22/21pro biotic bidPICC line monitoring monitor labs Atrial fibrillation 4943 6004 I48.19 metoprolol tartrate 25 mg bidcoumadi n therapymon itor INRs Essential hypertension 74264828 I10 metoprolol tartrate 25 mg bidlasix 20 mg qdklor con 20 meq qdmonitor b/p and labs [id number] Feliz Gonzalez MD [facility] [address] [address] 05/10/2021 12:53:56 05/17/2021 15:11:21 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 see HPI and above Infective endocarditis 827244976 I33.0 see HPIcontinu ed on nafcillin 2 gm q 4 hours through 05/22add probioticm onitor cbcupdate ID with concerns Pressure ulcer 195333226 L89.90 see wound care notesconti nue treatment Deep venou s thrombosis of upper extremity 078806813 I82.621 RUE DVTlovenox now bridged to coumadinmo nitor INR and titrate dose Osteoarthritis 001645057 M15.0 known at baselinemo nitor for sx controltit rate meds prn Mixed hyperlipidemia 267 670325 E78.2 simvastati n 20 mg qdcontinue d Essential hypertension 96983350 I10 metoprolol 25 mg bidlasix 20 mg qdmonitor bp and need to titrate meds Atrial fibrillation 4943 6004 I48.19 carrying dxmetoprol ol 25 mg bidtitrate coumadin dosemonito r for rate control Recurrent falls 31271107 2 R29.6 PT OT eval and treatmonit or fall risk Asthenia 39092332 R53.1 highly motivated to gain strength and return home [id number] STACY JOHN [facility] [address] [address] 05/11/2021 11:11:13 05/17/2021 15:26:07 Asthenia 22530469 R53.1 pt with fall this amfell from bed to floorno apparent injuriessa fety precaution sPT/OT eval and tx [id number] Feliz Gonzalez MD [facility] [address] [address] 05/17/2021 15:20:07 05/19/2021 15:47:47 Infective endocarditis 828596337 I33.0 nafcillin 2 gm q 4 hours through 05/22 to complete coursemoni tor cbcupdate ID with concernsgo al is discharge on 05/23 Bacterial arthritis 4824 5008 M00.88 see HPI and above Deep venou s thrombosis of upper extremity 368832622 I82.621 RUE DVTmonitor INR and titrate dose Asthenia 98377664 R53.1 improving with therapymov ing towards discharge [id number] HERMINIA DENSON NP [facility] [address] [address] 05/18/2021 14:18:12 05/22/2021 14:35:55 Infective endocarditis 741393876 I33.0 nafcillin 2 gm q 4 hours through 05/22 to complete coursemoni tor cbc - stableupda te ID with concernsgo al is discharge on 05/23Nsg. working on appt. for IV line removal Bacterial arthritis 4824 5008 M00.88 see HPI and above Deep venou s thrombosis of upper extremity 375472818 I82.621 RUE DVTmonitor INR and titrate dose Asthenia 96349760 R53.1 improving with therapymov ing towards discharge Atrial fibrillation 4943 6004 I48.19 [id number] STACY Weber [facility] [address] [address] 05/23/2021 11:10:46 05/25/2021 11:25:14 Infective endocarditis 687393648 I33.0 ok to dc home with meds and VNA services todayfinis hed nafcillin 2 gm q 4 hours through 05/22pt will not need to have central line flushed daily as [facility]. this [facility] where he is having it removedf/u cardiologi st on 05/31f/u with pcp as out pt Bacterial arthritis 4824 5008 M00.88 as above Pressure ulcer 906711044 L89.90 will be followed by [facility] Deep venou s thrombosis of upper extremity 517851726 I82.621 RUE DVTcoumadi n therapeuti cwill have [facility] draw next PT/INR when he is admitted to their service with results sent to PCP Mixed hyperlipidemia 267 349493 E78.2 atorvastat in 20 mg qdf/u pcp Essential hypertension 92010906 I10 metoprolol 25 mg bidlasix 20 mg [...] CODE/use dialysis/un decided about nutrition/use hydration Payers Insurance Date Sequence Insurance Name Policy Number Policy Flores Covered Member ID Flores Member ID Guarantor Name 05/23/2021 1 [facility] - MEDICARE PREFERRED (MEDICARE REPLACEMENT HMO) [facility] Vladimir Flynn [id number] Vladimir Flynn 10/24/2018 2 [place]: [employer] Vladimir Flynn [id number] Vladimir Flynn Notes Date Note Type Note [...] care and therapy Feliz Gonzalez MD [address] [facility], [address], [place], [address], [facility] 05/10/2021 13:19:34 05/11/2021 text/html Pt being seen for an acute rounding visit today. Pt had [...] daily and recheck INR Saturday. Rosenda ferro [facility] [employer] [facility] 05/11/2021 12:15:08 05/17/2021 text/html Patient is a 81 yo male resident seen for acute rounding. Completing Ab for endocarditis with potential discharge date of 05/23. Patient on coumadin for a fib with dose adjusted today. Strength and conditioning improving with therapy Feliz Gonzalez MD [address] [facility], [address], [place], [address], [facility] 05/17/2021 15:26:05 05/18/2021 text/html Vladimir is seen today for an acute visit.Alert, pleasant, NAD. Uvaldo. abx. tx. well, goal home next . when IV abx. completed.Feels well, no c/o.Working with rehab - good progress. HERMINIA DENSON NP [address] [facility], [address], [place], [address], [facility] 05/18/2021 15:00:40 05/23/2021 text/html pt seen today for discharge summary. Patient presented to [facility] er from [place] (where he had been sent after 2 days in [facility] for rehab) with fever, hypotension and shaking [...] are resolving. was sent from there to [facility] for acute rehab. He had episodes [...] no concerns per nursing. STACY Weber [address] [facility], [address], [place], [address], [facility] 05/23/2021 12:09:56
--- OUTSIDE RECORDS SUMMARY | 2025-07-06 18:40 | XMS_ITS | Clinical Summary ---
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 Directed by [facility] 10/08/19 24 Active warfarin (COUMADIN) 5 mg tablet Take 1 tablet (5 mg total) by mouth 1 (one) time each day with dinner. See Admin Instructions. May cause heavy bleeding. Take at same time every day. Do not change dietary habits. [facility] directs coumadin instructions 90 tablet 11 [...] Noted Date Diagnosed Date Peripheral arterial disease ([facility] V24) 2022 Cardiomyopathy ([facility] V24, [facility] V28) 2021 Assessment & Plan (04/19/2025 10:18 [...] 12/12/2018 Overview (08/04/2024): R knee Atrial fibrillation ([facility] V24, [facility] V28) 0 05/14/2018 Overview (04/19/2025): Jantoven/ warfarin Assessment & Plan (04/19/2025 10:18 AM EDT): Patient has history of atrial fibrillation and continues on chronic anticoagulation with warfarin given elevated [id number] score. He denies any bleeding or excessive [...] (coronary artery disease) 05/14/2018 Overview (04/19/2025): Old [place]; Stress test -ve 2010, treated in [facility] in 2003, stents put in. Assessment & [...] Plan: Patient continues to follow closely with [facility] vascular surgery. Assessment & Plan [...] Department Care Team Description 04/27/2025 Telephone [facility] Cardiology [facility] [address] [place] [address] Ced Victoria MD 04/19/2025 10:10 AM EDT Office Visit [facility] Cardiology [facility] [address] [place] [address] Virgie Trivedi, GILBERTO Atrial fibrillation, unspecified type (CMS/HCC V24, CMS/HCC V28) (Primary Dx); Coronary artery disease involving akutan coronary artery of akutan heart without angina pectoris; Dilated cardiomyopathy (CMS/HCC [...] PROCEDURE: HISTORICAL CARDIAC CATH KNEE ARTHROSCOPY PROCEDURE: OR ARTHROSCOPY AID TX SPINE&/FX KNEE W/O FIXJ OTHER SURGICAL HISTORY 05/19/2018 Right PROCEDURE: OR ENDOVEN ABLTJ INCMPTNT VEIN XTR LASER 1ST VEIN TOTAL KNEE ARTHROPLASTY 10/07/2018 Right PROCEDURE: HISTORICAL TOTAL KNEE REPLACE; COMMENT: [facility] - Dr. Cazares EYE SURGERY Bilateral PROCEDURE: HISTORICAL EYE SURGERY; COMMENT: cataracts BYPASS GRAFT 08/16/2022 Right PROCEDURE: OR AMPUTATION TOE METATARSOPHALANGEAL JOINT; COMMENT: R 5th toe OTHER SURGICAL HISTORY 08/16/2022 Right PROCEDURE: OR INCISION BONE CORTEX FOOT; COMMENT: R 5th metatarsal OTHER SURGICAL HISTORY 10/23/2022 PROCEDURE: OR SLCTV CATHJ 3RD+ ORD SLCTV ABDL PEL/LXTR BRNCH OTHER SURGICAL HISTORY 10/23/2022 PROCEDURE: X-RAY EXAM OF ARM/LEG ARTERY OTHER SURGICAL HISTORY 10/23/2022 PROCEDURE: ULTRASOUND GUIDANCE FOR VASCULAR AC OTHER SURGICAL HISTORY 07/09/2023 PROCEDURE: OR REVSC OPN/PRQ TIB/RON W/ANGIOPLASTY UNI OTHER SURGICAL HISTORY 07/09/2023 PROCEDURE: ULTRASOUND GUIDANCE FOR VASCULAR AC Medical History Medical History Date Comments Atrial fibrillation (CMS/HCC V24, CMS/HCC V28) DX:Atrial fibrillation (HCC) Coronary artery disease DX:Coron randy artery disease; COMMENT: Old [place]; Stress test -ve 2010, treated in [facility] in 2003, stents put in. Cataracts, bilateral [...] Info) Description 07/14/2025 1:00 PM EST Appointment [facility] Ultrasound [address] [place] [phone] 08/19/2025 2:30 PM EST Office Visit Vascular Surgery - [place] [address] [place] [address] Emerald Macario MD [address] [place] [phone] 09/14/2025 11:00 AM EST Office Visit Internal Medicine - [place] [address] [facility] [address] [place] [phone] Kirk Randle MD [address] [place] [phone] Health Maintenance Due Date Last Done Comments [...] V24, CMS/HCC V28) Coronary artery disease involving akutan coronary artery of akutan heart without angina pectoris Dilated cardiomyopathy (CMS/HCC [...] ms GEMUSE QTc 402 ms GEMUSE R Kingsley 77 degrees GEMUSE T Kingsley 6 degrees GEMUSE ECG Interpretation Atrial fibrillation with slow ventricular response with premature ventricular or aberrantly conducted complexes Cannot rule out Inferior infarct (cited on or before 02-APR-2021) Abnormal ECG When compared with ECG of 09-OCT-2024 10:25, No significant change was found Confirmed by ISSA CELIS ([id number]) on 04/19/2025 2:12:02 PM GEMUSE 04/19/2025 9:59 AM EDT 04/19/2025 2:12 PM EDT Virgie Trivedi SOCIAL MEDIA DESIGNER ECG ORDERABLES Edited Resul t - Final GEMUSE * Lipid panel with reflex to direct LDL (09/30/2024 10:13 AM EST) Cholesterol 117 0 - 200 mg/dL LAB CHEMISTRY METHOD 09/30/2024 1:14 PM EST [facility] Triglycerides 77 0 - 150 mg/dL LAB CHEMISTRY METHOD 09/30/2024 1:14 PM EST [facility] HDL 48 >=40 mg/dL LAB CHEMISTRY METHOD 09/30/2024 1:14 PM [facility] LDL Calculated 54 0 - 100 mg/dL LAB CHEMISTRY METHOD 09/30/2024 1:14 PM [facility] VLDL Cholesterol Ric 15.4 mg/dL LAB CHEMISTRY METHOD 09/30/2024 1:14 PM [facility] Non HDL Chol. (LDL+VLDL) 69 <145 mg/dL LAB CHEMISTRY METHOD 09/30/2024 1:14 PM [facility] Chol/HDL Ratio 2.4 0.0 - 4.4 LAB CHEMISTRY METHOD 09/30/2024 1:14 PM [facility] Blood Venous blood specimen / Unknown Venipuncture / Unknown 09/30/2024 10:13 AM EST 09/30/2024 11:01 AM EST us Kirk Randle MD LAB BLOOD ORDERABLES Final Resul t [facility] [address] [place] [address], [place] [phone] * (ABNORMAL) Comprehensive metabolic panel (09/30/2024 10:13 AM EST) Sodium 140 133 - 145 mmol/L LAB CHEMISTRY METHOD 09/30/2024 1:14 PM [facility] Potassium 4.2 3.5 - 5.5 mmol/L LAB CHEMISTRY METHOD 09/30/2024 1:14 PM [facility] Chloride 106 96 - 110 mmol/L LAB CHEMISTRY METHOD 09/30/2024 1:14 PM [facility] CO2 27 21 - 32 mmol/L LAB CHEMISTRY METHOD 09/30/2024 1:14 PM [facility] Anion Gap 7 3 - 11 LAB CHEMISTRY METHOD 09/30/2024 1:14 PM [facility] Glucose 92 70 - 100 mg/dL LAB CHEMISTRY METHOD 09/30/2024 1:14 PM [facility] BUN 27(H) 5 - 25 mg/dL LAB CHEMISTRY METHOD 09/30/2024 1:14 PM [facility] Creatinine 1.23 0.70 - 1.30 mg/dL LAB CHEMISTRY METHOD 09/30/2024 1:14 PM [facility] eGFR 59(L) >=60 mL/min/1. 73m2 LAB CHEMISTRY METHOD 09/30/2024 1:14 PM [facility] Comment:Calculation based on the Chronic Kidney Disease Epidemiology Collaboration (CKD-EPI) equation refit without adjustment for race. BUN/Creatinine Ratio 22.0 LAB CHEMISTRY METHOD 09/30/2024 1:14 PM [facility] Calcium 9.9 8.5 - 10.5 mg/dL LAB CHEMISTRY METHOD 09/30/2024 1:14 PM [facility] AST (SGOT) 42 10 - 42 unit/L LAB CHEMISTRY METHOD 09/30/2024 1:14 PM [facility] ALT (SGPT) 35 10 - 60 unit/L LAB CHEMISTRY METHOD 09/30/2024 1:14 PM [facility] Alkaline Phosphatase 97 42 - 121 unit/L LAB CHEMISTRY METHOD 09/30/2024 1:14 PM [facility] Total Protein 7.1 6.0 - 8.0 g/dL LAB CHEMISTRY METHOD 09/30/2024 1:14 PM [facility] Albumin 4.0 3.2 - 5.0 g/dL LAB CHEMISTRY METHOD 09/30/2024 1:14 PM [facility] Total Bilirubin 1.2 0.0 - 1.4 mg/dL LAB CHEMISTRY METHOD 09/30/2024 1:14 PM [facility] Blood Venous blood specimen / Unknown Venipuncture / Unknown 09/30/2024 10:13 AM EST 09/30/2024 11:01 AM EST us Kirk Randle MD LAB BLOOD ORDERABLES Final Resul t JEANETTE ASHLEY OR ([facility]) [facility] [address] [place] [address], from Last 3 Months or Most Recently Relevant to Health Maintenance Insurance [employer] Advance Directives Documents on File Type Date Recorded 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
== END 2025-07-06 15:12 | disposition home or self-care (01) ==
LOC: HO.HSM 14:20
PROVIDERS: PCP Internal Medicine; Visit Provider Psychiatry & Neurology Neurology
DX: H81.10 Benign paroxysmal vertigo, unspecified ear (principal); G62.9 Polyneuropathy, unspecified; R26.89 Other abnormalities of gait and mobility
CPT/HCPCS: 99204

== ENCOUNTER 2025-07-22 12:52 | Outpatient (REF) | payer MEDICARE, SELFPAY ==
--- NOTE | 2025-07-22 12:56 | EMG_ITS ---
Chief complaint:?G62.9 Polyneuropathy Reason for referral: Peripheral neuropathy bilaterally Procedure done: Bilateral lower extremities NCS/EMG Bilateral peroneal and tibial motor studies were performed with F responses and tibial H reflexes. Bilateral superficial peroneal and sural sensory studies were performed and needle examination was performed. Findings: tibial motor studies did not reveal any responses. Peroneal distal latencies were mildly prolonged with severe reduction of amplitude and mildly slow conduction velocity. Sensory responses were absent. Tibial F responses were absent. Peroneal F responses were mildly delayed. Left tibial H-reflex was absent while right was with a normal range. 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
--- OUTSIDE RECORDS SUMMARY | 2025-07-22 15:59 | XMS_ITS | Data Portability ---
Author Organization [place] [facility], Allergy Address [address] [place] [phone] Care Team Providers Care Consumer Affairs Manager Name Role Phone MARLENI PIRES Primary Care [...] By Organization Details Last Modified Time 06/14/2025 [id number] The patient has evidence today of significant [...] Organization Details Recorded Time Diverticula r disease 807138040 Active 2015 Judy ferro [place] - [facility] 5 11:08:46 Benign prostatic hyperplasia 265211694 Active 2016 JOSEFA Valdez [facility] 5 11:08:46 Non-toxic multinodula r goiter 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 2017 Judy ferro [place] - [facility] 5 11:08:46 Venous varices 593635085 Active 2017 Judy ferro [place] - [facility] 5 11:08:46 Peripheral venous insufficien cy 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 2017 Judy ferro [place] - [facility] 5 11:08:46 Hypertensiv e disorder 06550454 Active 2017 Judy ferro [place] - [facility] 5 11:08:46 Atrial fibrillatio n 05960932 Active 2017 Judy ferro [place] - [facility] 11:08:46 Coronary arterioscle rosis 37844101 Active 2017 Judy ferro [place] - [facility] 11:08:46 Hyperlipide ezequiel 82463818 Active 2017 Judy ferro [place] - [facility] 11:08:46 History of right total knee replacement 8200922845547 102 Active 2018 Judy ferro [place] - [facility] 11:08:46 Osteoarthri tis 251446109 Active 2018 Judy ferro [place] - [facility] 5 11:08:46 Endocarditi s 62851915 Active 2020 Judy ferro [place] - [facility] 5 11:08:46 Mitral valve regurgitati on 74805980 Active 2021 Judy ferro [place] - [facility] 5 11:08:46 Cardiomyopa thy 99809291 Active 2021 Judy ferro [place] - [facility] 5 11:08:47 Peripheral arterial disease 415227075 Active 2022 Judy ferro [place] - [facility] 5 11:08:46 Sensorineur al hearing loss of bilateral ears 654338164 Active 2024 Jarad Gomez, [address] [address], [place], [address], [place] [facility] 5 12:01:56 Impacted cerumen of bilateral ears 4720242267258 108 Active 2024 Jarad Jason, DO [address] [facility], [place], [address], [place] - [facility] 12:01:53 Problem Notes None recorded. Procedures Surgical History Date Name Laterality Status Provider Name and Address Organization Details Recorded Time Cerumen removal without microscope left completed Jarad Gomez, [address] [facility],[address], [address], [facility] 06/14/2025 08:53:01 Comp Audio with Tymps - 85566 & 50890 completed MICHELLE DELONG, AUD [address] [facility],[address] [address], [place], [address], [facility] 05/31/2025 10:43:31 Cerumen removal with microscope bilateral completed Jarad Gomez, [address] [facility],[address] [address], [place], [address], [facility] 05/31/2025 12:35:31 Imaging Results None recorded. Procedure Notes None recorded. Medical Equipment None Reported. Allergies Allergen ID Allergen Name Allergen Category Reaction Reaction Severity Criticality Documentation Date Start Date Code Code System Note Provider Name and Address Organization Details Recorded Time 193830 clopidogr el medicatio n rash Not available Not available 06/14/20252009 71039 [place]Norm [place] [facility] 11:08:33 Medications Name Sig Start Date Stop [...] Updated DateTime 05/31/2025 190.5 cm 26.9 kg/m2 20233.36 g Mariluz No [place] [facility] 05/31/2025 11:11:47 Social History None recorded. Functional Status None recorded. Mental Status None recorded. Family History Nothing Reported. Medical History No medical history recorded. Immunizations Vaccine Type Date Status Note Provider Nam e and Address Organization Details Recorded Time Influenza, adjuvanted, trivalent, PF 9 completed Judy ferro [facility] 06/14/2025 11:08:51 COVID-19, mRNA, LNP-S, PF, 100 mcg/0.5mL dose or 50 mcg/0.25mL dose 1 completed Judy ferro [facility] 06/14/2025 11:08:51 COVID-19, mRNA, LNP-S, PF, 100 mcg/0.5mL dose or 50 mcg/0.25mL dose 1 completed Judy ferro [facility] 06/14/2025 11:08:51 pneumococcal polysaccharide PPV23 7 completed Judy ferro [facility] 06/14/2025 11:08:51 Pneumococcal conjugate PCV 13 5 completed Judy ferro [facility] 06/14/2025 11:08:51 Influenza, split virus, trivalent, PF 0 completed Judy ferro [facility] 06/14/2025 11:08:51 Past Encounters Encounter ID Performer Location Encounter Start Date Encounter Closed Date Diagnosis/Indication Diagnosis SNOMED-CT Code Diagnosis ICD10 Code Diagnosis IMO Codes Diagnosis Note [id number] Jarad Gomez DO [facility] [address] [address] 05/31/2025 10:04:09 05/31/2025 12:02:32 Sensorineural hearing loss of bilateral ears 814502750 H90.3 [id number] Audiologic al evaluation results: Right ear: Normal sloping to severe sensorineu ral hearing loss with good word recognitio n. Left ear: Normal sloping to severe sensorineu ral hearing loss with excellent word recognitio n. Tympanomet ry: Right Ear:Type A Left Ear:Type A Impacted c erumen of bilateral ears 2909728330 268879 H61.23 [id number] Jarad Gomez DO [facility] [address] [address] 06/14/2025 10:57:48 06/14/2025 11:25:59 Sensorineural hearing loss of bilateral ears 179450875 H90.3 [id number] Impacted c erumen of bilateral ears 7888790000 853063 H61.23 914009 Health Concerns Section Related Observation LastModified by Organization Detai ls LastModified Time None Recorded Concern Status LastModified by Organization Details LastModified Time None Recorded Advance Directives Directive None Recorded Payers Insurance Date Sequence Insurance Name Policy Number Policy Flores Covered Member ID Flores Member ID Guarantor Name 04/20/2025 1 [facility] Vladimir Flynn [id number] Vladimir Flynn 06/14/2025 1 [facility] - MEDICARE PREFERRED (MEDICARE REPLACEMENT HMO) [facility] [id number] Vladimir Flynn Notes Date Note Type [...] Prior Audiogram: None Jarad Gomez, DO [address] [facility],[address] [address], [place], [address], [facility] 05/31/2025 12:36:36 06/14/2025 text/html ROS as noted [...] Prior Audiogram: None Jarad Gomez, DO [address] [facility],[place] [address], [place], [address], [facility] 06/14/2025 11:25:00
--- OUTSIDE RECORDS SUMMARY | 2025-07-22 16:00 | XMS_ITS | Patient Health Record ---
[facility] Organization [facility] Ariel Llamasley Address [address] [place] [address] Care Team Providers Care Managing Consultant Name Role Phone Kirk Randle MD Primary Care Provider Unavailab Anuradha Hobbs Unavailable [phone] Allergies Allergen (clinical drug ingredient) Drug/Non Drug Allergy documented on EMR Reaction Allergy Type Onset Date Status clopidogrel Plavix rash Drug Allergy Activ e Reason For Referral Diagnosis 1 Tinea unguium (B35.1 ) Diagnosis 2 Other hammer toe(s) (acquired), left foot (M20.42) Diagnosis 3 Unspecified atherosc lerosis of yurok arteries of extremities, bilateral legs (I70.203) Diagnosis [...] Referring Provider Last Name Jer Referred Organization [facility] Jamal Referred Provider Anuradha Hermosillo Referred Address [address],[place], [place],[address], Referred Provider Specialty Podiatry Referral Priority Routine [...] atherosclerosis of arteries of lower limbs (disorder) ([id number] ) 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, bilateral legs (I70.203) Active confirmed Vital Signs Blood pressure diastolic 75 mm Hg 05/07/2025 Height 6 ft 3 in in 05/07/2025 Blood pressure systolic 115 mm Hg 05/07/2025 Weight 217 lbs 05/07/2025 BMI 27.12 kg/m2 05/07/2025 Encounters Encounter Location Date Provider Diagnosis [address] [address] 08/21/2024 Anuradha Hermosillo Tinea unguium B35.1 ; 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, bilateral legs I70.203 ; Pain in right toe(s) M79.674 ; Pain in left toe(s) M79.675 ; Other hammer toe(s) (acquired), left foot M20.42 ; Other hammer toe(s) (acquired), right foot M20.41 ; Venous insufficiency I87.2 and Ischemic ulcer of left foot, limited to breakdown of skin L97.[address] [address] 10/20/2024 Anuradha Hermosillo Ischemic ulcer of le ft heel, limited to breakdown of skin L97.421 ; Xerosis of skin L85.3 ; 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, bilateral legs I70.203 ; Other hammer toe(s) (acquired), left foot M20.42 ; Other hammer toe(s) (acquired), right foot M20.41 and Ischemic ulcer of right heel, limited to breakdown of skin L97.[address] [address] 11/20/2024 Anuradha Hermosillo Ischemic ulcer of le ft heel, limited to breakdown of skin L97.421 ; Xerosis of skin L85.3 ; 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, bilateral legs I70.203 ; Other hammer toe(s) (acquired), left foot M20.42 and Other hammer toe(s) (acquired), right foot M20.[address] [address] 12/22/2024 Anuradha Hermosillo 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, bilateral legs I70.203 ; Xerosis of skin L85.3 ; Tinea unguium B35.1 ; Pain in right toe(s) M79.674 ; Pain in left toe(s) M79.675 ; Other hammer toe(s) (acquired), left foot M20.42 ; Other hammer toe(s) (acquired), right foot M20.41 and Venous insufficiency I87.[address] [address] 02/23/2025 Anuradha Hermosillo 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, bilateral legs I70.203 ; Tinea unguium B35.1 ; Pain in right toe(s) M79.674 and Pain in left toe(s) M79.[address] [address] 05/07/2025 Anuradha Hermosillo 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, bilateral legs I70.203 ; Tinea unguium B35.1 ; Pain in right toe(s) M79.674 and Pain in left toe(s) M79.[address] [address] 10/16/2024 Anuradha Hermosillo [address] [address] 10/21/2024 Anuradha Hermosillo [address] [address] 11/02/2024 Anuradha Hermosillo Assessments Encounter Date Diagnosis [...] CARE INSTRUCTIONS. pdf) 12/22/2024 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, bilateral legs (ICD-10 - I70.203) 12/22/2024 Xerosis of skin (ICD-10 - L85.3) 02/23/2025 Tinea unguium (ICD-10 - B35.1) 02/23/2025 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, bilateral legs (ICD-10 - I70.203) 05/07/2025 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, bilateral legs (ICD-10 - I70.203) 05/07/2025 Tinea unguium (ICD-10 - B35.1) 02/23/2025 Pain in right toe(s) (ICD-10 - M79.674) 12/22/2024 Tinea unguium (ICD-10 - B35.1) 11/20/2024 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, bilateral legs (ICD-10 - I70.203) 08/21/2024 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, bilateral legs (ICD-10 - I70.203) 10/20/2024 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, bilateral legs (ICD-10 - [...] X ray : Foot, left 2V 09/14/2015 70797-EHUYNYV NAIL, 6 OR MORE 11/16/2015 44636-XCTXMOH NAIL, 6 OR MORE 05/16/2016 33270-ZPNGCIB NAIL, 6 OR MORE 08/23/2016 93307-PJTFMFY NAIL, 6 OR MORE 12/05/2016 84853-PKINFSQ NAIL, 6 OR MORE 03/06/2017 61450-DYQMCSN NAIL, 6 OR MORE 07/03/2017 06738-MVQAJRQ NAIL, 6 OR MORE 03/10/2015 32339-TGEXUSZ NAIL, 6 OR MORE 06/13/2015 31209-SVAPUGQ NAIL, 6 OR MORE 10/01/2013 56919-UWAYLZM NAIL, 6 OR MORE 01/13/2015 85818-KPTALLY NAIL, 6 OR MORE 06/30/2018 16282-JRCYTNV NAIL, 6 OR MORE 11/04/2017 19888-TODRVRC NAIL, 6 OR MORE 03/05/2018 25939-Evoh Destruction, 1-14 01/27/2015 70376-Afxa Destruction, 1-14 01/13/2015 94079-Vrdy Destruction, 1-14 03/10/2015 35372-Uhhm Destruction, 1-14 06/13/2015 76449-Cajnraor Plate 06/13/2015 27712-Tiqjhixm Plate 03/10/2015 97236-Qrwzfeii Plate 06/30/2018 11792- Debride <25 sq cm 03/10/2015 35124- Debride <25 sq cm 01/27/2015 53807- Debride <25 sq cm 08/24/2015 10431- Debride <25 sq cm 09/05/2015 66556- Debride <25 sq cm 09/14/2015 71740-RZJQYNB SKIN/TISSUE 01/13/2015 38928-TZWMPBP SKIN/TISSUE 07/20/2015 18532-FWCORWO SKIN/TISSUE 06/27/2015 40181-ICUMOCI SKIN/TISSUE 07/04/2015 86207-MDBRVEI SKIN/TISSUE 10/17/2022 33656-MZLQ SKIN LESIONS, OVER 4 11/15/19 21 54223-SEZL SKIN LESIONS, OVER 4 03/16/20 21 93353-WFLH SKIN LESIONS, OVER 4 10/17/19 45271-EYSY SKIN LESIONS, 2 TO 4 06/30/20 18 25413-SZRD SKIN LESIONS, 2 TO 4 03/05/20 18 88954-DDPJ SKIN LESIONS, 2 TO 4 11/25/19 55200-APVL SKIN LESIONS, 2 TO 4 03/30/20 19118-EKBQ SKIN LESIONS, 2 TO 4 07/20/20 74188-QOFQ SKIN LESIONS, 2 TO 4 11/18/19 27676-VZSF SKIN LESIONS, 2 TO 4 03/21/20 20 96091-AAVI SKIN LESIONS, 2 TO 4 07/20/20 20 52930-IDQK SKIN LESIONS, 2 TO 4 02/28/20 23 35863-FCPO SKIN LESIONS, 2 TO 4 05/16/20 16 87094-DIIV SKIN LESIONS, 2 TO 4 11/16/19 16 83923-RFDX SKIN LESIONS, 2 TO 4 11/04/19 18 07636-PUZT SKIN LESIONS, 2 TO 4 07/03/20 17 92101-TKFH SKIN LESIONS, 2 TO 4 12/06/19 17 04866-RTEC SKIN LESIONS, 2 TO 4 03/06/20 17 97712-EOCJ SKIN LESIONS, 2 TO 4 08/23/20 16 93985-JIEEZKYM OF HEMATOMA/FLUID 023 Next Appt Details Provider Name:Anuradha amado, 08/10/2025 11:00:00 AM, [address] [place], [address], Insurance Providers Payer Name Payer Address Payer Phone Subscriber Number Group Number Insured Name Patient Relationship to Insured Coverage Start Date Coverage End Date [facility] Care Options [address] [place] [id number] Vladimir Flynn Self - patient is the [...] center left eye cataract surger y 01/22/2017 [facility] [place] passed out for two seconds, lab work was done everything came out fine. 04/2016
--- OUTSIDE RECORDS SUMMARY | 2025-07-22 16:00 | XMS_ITS | Data Portability ---
Author Organization [facility] [employer] [facility], Main Office Address 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 Problems Name Problem SNOMED Code Status Onset Date Resolution Date Notes Provider Name and Address Organization Details Recorded Time Osteoarthri tis of left knee joint 0709480291987 09 Active 2018 Feliz Gonzalez MD [address] [facility], [address], [place], [address], [facility] [employer] 9 15:05:21 Essential hypertensio n 38354284 Active 2018 Feliz Gonzalez MD [address] [facility] [address] [facility], [address], [place], [address], [facility] [employer] 9 15:05:25 Mixed hyperlipide ezequiel 974424859 Active 2018 Feliz Gonzalez MD [address], [address], [place], [address], [facility] 9 15:05:33 Unsteady gait Active 2018 Feliz Gonzalez MD [address], [address], [place], [address], [facility] 9 15:05:38 Atrial fibrillatio n 42982547 Active 2018 STACY SULLIVAN [address], [address], [place], [address], [facility] 9 08:43:44 Infective endocarditi s 649646062 Active 2020 STACY SULLIVAN [address], [address], [place], [address], [facility] 1 08:27:08 Osteoarthri tis 929745246 Active 2020 STACY SULLIVAN [address], [address], [place], [address], [facility] 1 08:27:39 History of cerebrovasc ular accident 582083938 Active 2020 STACY SULLIVAN [address], [address], [place], [address], [facility] 1 08:28:06 Recurrent falls 727693452 Active 2020 STACY SULLIVAN [address], [address], [place], [address], [facility] 1 08:28:20 Pressure ulcer Active 2020 STACY SULLIVAN [address], [address], [place], [address], [facility] 1 08:30:05 Deep venous thrombosis of upper extremity 453272878 Active 2020 STACY SULLIVAN [address], [address], [place], [address], [facility] [employer] 08:30:52 Multinodula r goiter 784312953 Active [address] [facility] [address] [facility], [address], [place], [address], [facility] [employer] 08:32:27 Hypomagnese ezequiel 355022463 Active [address] [facility] [address] [facility], [address], [place], [address], [facility] [employer] 08:57:53 Asthenia 72837961 Active 2020 Rosenda ferro, [place] [employer] 11:24:32 Problem Notes None recorded. Procedures Surgical History Date Name Laterality Status Provider Name and Address Organization Details Recorded Time percutaneous transluminal coronary angioplasty completed KYREE SULLIVANP [address] [place] [address], [address], [place], [address], [employer] 05/05/2021 08:29:08 Imaging Results None recorded. Procedure Notes None recorded. Medical Equipment None Reported. Allergies Allergen ID Allergen Name Allergen Category Reaction Reaction Severity Criticality Documentation Date Start Date Code Code System Note Provider Name and Address Organization Details Recorded Time 34208 Plavix medicatio n rash severe Not available 10/13/2018 80325 2 RxNorm STACY SULLIVAN [address] [facility], [address], [place], [address], [facility] 9 08:21:26 Medications Not known to be on any medication Vitals Date Recorded Systolic And Diastolic Provider Name and Address Organization Details Last Updated DateTime 05/10/2021 124/65 mm[Hg] Feliz Gonzalez MD [address] [facility], [address], [place], [address], [facility] 05/10/2021 12:55:10 Date Recorded Body temperature Heart rate Respiratory rate Oxygen saturation Oxygen saturation in Arterial blood by Pulse oximetry Systolic And Diastolic Provider Name and Address Organization Details Last Updated DateTime 97.2 [degF] 79 /min 18 /min 96 % 96 % 145/73 mm[Hg] Rosenda bower [facility] 1 11:13:36 Date Recorded Systolic And Diastolic Provider Name and Address Organization Details Last Updated DateTime 05/17/2021 104/74 mm[Hg] Feliz Gonzalez MD [address] [facility], [address], [place], [address], [facility] 05/17/2021 15:20:50 Date Recorded Heart rate Respiratory rate Body temperature Oxygen saturation Oxygen saturation in Arterial blood by Pulse oximetry Systolic And Diastolic Provider Name and Address Organization Details Last Updated DateTime 1 73 /min 18 /min 97.4 [degF] 93 % 93 % 129/89 mm[Hg] HERMINIA DENSON NP [address] [facility] [address] [facility], [address], [place], [address], [facility] 1 14:20:11 Date Recorded Body temperature Oxygen saturation Oxygen saturation in Arterial blood by Pulse oximetry Heart rate Respiratory rate Systolic And Diastolic Provider Name and Address Organization Details Last Updated DateTime 1 96.6 [degF] 97 % 97 % 89 /min 18 /min 124/81 mm[Hg] STACY Weber [address] [facility], [address], [place], [address], [employer] [facility] [facility] 1 11:12:09 Social History Question Answer Notes LastModified by Organizat ion Details LastModified Time Tobacco Smoking Status Never Smoker Not Available [facility] 07/05/2020 03:13:23 Do You Have An Advance Directive? Yes FULL CODE/use Dialysis/unde cided About Nutrition/use Hydration Information not available 05/05/2021 What Is Your Code Status? Full Code Information not available 05/05/2021 Legal Guardian? No Information not available 05/05/2021 Do You Have A Medical Power Of Carbon Setter? Yes HCP On File Information not available 05/05/2021 Has Tobacco Cessation Counseling Been Provided? No NA Information not available 05/05/2021 Sex: Unknown Functional Status Question Answer Note LastModified by Organizat ion Details LastModified Time Do you or have you ever used any other forms of tobacco or nicotine? No Information not available 05/05/2021 What is your level of alcohol consumption? Occasional [id number] Information not available 07/05/2020 Mental Status Question Answer Note LastModified by Organization D etails LastModified Time Do you feel stressed (tense, restless, nervous, or anxious, or unable to sleep at night)? [id number] Information not available 05/05/2021 Family History Nothing Reported Notes:N/C Medical History No medical history recorded. Immunizations Vaccine Type Date Status Note Provider Nam e and Address Organization Details Recorded Time COVID-19, mRNA, LNP-S, PF, 100 mcg/0.5mL dose or 50 mcg/0.25mL dose 10/11/2020 completed STACY SULLIVAN [address] [facility], [address], [place], [address], [facility] 05/05/2021 11:09:25 COVID-19, mRNA, LNP-S, PF, 100 mcg/0.5mL dose or 50 mcg/0.25mL dose 11/08/2020 completed STACY SULLIVAN [address] [facility], [address], [place], [address], [facility] [employer] [facility] 05/05/2021 11:09:40 influenza, unspecified formulation 09/08/2018 [facility] 15:12:21 Past Encounters Encounter ID Performer Location Encounter Start Date Encounter Closed Date Diagnosis/Indication Diagnosis SNOMED-CT Code Diagnosis ICD10 Code Diagnosis IMO Codes Diagnosis Note [id number] Feliz Gonzalez MD [address] [address] 10/10/2018 14:54:06 10/28/2018 16:15:02 Osteoarthritis of left knee joint 2720139582 46226 M17.12 end stage OA now s/p TKR leftfollow ortho recsPT OT eval and treatmonit or for pain control and constipati onmonitor and adjust coumadin for DVT prophylaxi sgiven sub-therap utic INR will add lovenox 40 mg sc qd till theraputic Essential hypertension 42890687 I10 metoprolol 25 mg qdmonitor bp Mixed hyperlipidemia 267 667689 E78.2 simvastati n 40 mg qdcontinue Unsteady gait 534647166 R26.81 PT OT eval and treat [id number] [address] [address] 10/13/2018 08:02:37 10/28/2018 16:16:29 Osteoarthritis of left knee joint 5909978428 96945 M17.12 follow ortho recsmonito r and adjust coumadinlo venox 40 mg sc qd till theraputic follow up with ortho and PCP Essential hypertension 62829078 I10 metoprolol 25 mg qdfollow up with PCP Mixed hyperlipidemia 267 492746 E78.2 simvastati n 40 mg qdfollow up with PCP Unsteady gait 346513898 R26.81 follow up with PCP Atrial fibrillation 4943 6004 I48.2 coumadin therapymon itor INRscontin ue lovenox til over 2follow up with cardiology and PCP [id number] [facility] [address] 05/05/2021 08:21:13 05/10/2021 15:30:51 Infective endocarditis 607684471 I33.0 nafcillin 2 gm IV q 4 hrs with stop date of 05/22/21pro biotic bidPICC line monitoring monitor labs Osteoarthritis 796480990 M15.0 tylenol 650 mg q 4 hrs prnmonitor pain Mixed hyperlipidemia 267 987419 E78.2 simvastati n 20 mg qdmonitor labs Essential hypertension 01661621 I10 metoprolol tartrate 25 mg bidlasix 20 mg qdklor con 20 meq qdmonitor b/p and labs Atrial fibrillation 4943 6004 I48.19 metoprolol tartrate 25 mg bidcoumadi n therapymon itor INRs History of cerebrovascular accident 026392733 Z86.73 metoprolol tartrate 25 mg bidcoumadi n therapyato rvastatin 20 mg qdmonitor Recurrent falls 41881509 2 R29.6 PT/OT eval and treatmonit or for safety Pressure ulcer 738014733 L89.90 multivitam in with mineralsvi tamin C 500 mg qdwound care as orderedmon itor frequently use pressure relief devices Deep venou s thrombosis of upper extremity 924587665 I82.621 coumadin therapymon itor INRs Multinodular goiter 2375 79961 E04.2 noted in historymon itor Hypomagnesemia 158392679 E83.42 magnesium 400 mg qdmonitor labs [id number] STACY SULLIVAN [facility] [address] [address] 05/08/2021 10:39:43 05/11/2021 08:35:04 Infective endocarditis 616907410 I33.0 nafcillin 2 gm IV q 4 hrs with stop date of 05/22/21pro biotic bidPICC line monitoring monitor labs Atrial fibrillation 4943 6004 I48.19 metoprolol tartrate 25 mg bidcoumadi n therapymon itor INRs Essential hypertension 58960443 I10 metoprolol tartrate 25 mg bidlasix 20 mg qdklor con 20 meq qdmonitor b/p and labs [id number] Feliz Gonzalez MD [facility] [address] [address] 05/10/2021 12:53:56 05/17/2021 15:11:21 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 see HPI and above Infective endocarditis 298028425 I33.0 see HPIcontinu ed on nafcillin 2 gm q 4 hours through 05/22add probioticm onitor cbcupdate ID with concerns Pressure ulcer 228652527 L89.90 see wound care notesconti nue treatment Deep venou s thrombosis of upper extremity 680244110 I82.621 RUE DVTlovenox now bridged to coumadinmo nitor INR and titrate dose Osteoarthritis 672871937 M15.0 known at baselinemo nitor for sx controltit rate meds prn Mixed hyperlipidemia 267 791927 E78.2 simvastati n 20 mg qdcontinue d Essential hypertension 81609039 I10 metoprolol 25 mg bidlasix 20 mg qdmonitor bp and need to titrate meds Atrial fibrillation 4943 6004 I48.19 carrying dxmetoprol ol 25 mg bidtitrate coumadin dosemonito r for rate control Recurrent falls 50240249 2 R29.6 PT OT eval and treatmonit or fall risk Asthenia 28819817 R53.1 highly motivated to gain strength and return home [id number] STACY JOHN [facility] [address] [address] 05/11/2021 11:11:13 05/17/2021 15:26:07 Asthenia 04386745 R53.1 pt with fall this amfell from bed to floorno apparent injuriessa fety precaution sPT/OT eval and tx [id number] Feliz Gonzalez MD [facility] [address] [address] 05/17/2021 15:20:07 05/19/2021 15:47:47 Infective endocarditis 908030969 I33.0 nafcillin 2 gm q 4 hours through 05/22 to complete coursemoni tor cbcupdate ID with concernsgo al is discharge on 05/23 Bacterial arthritis 4824 5008 M00.88 see HPI and above Deep venou s thrombosis of upper extremity 832081321 I82.621 RUE DVTmonitor INR and titrate dose Asthenia 18697335 R53.1 improving with therapymov ing towards discharge [id number] HERMINIA DENSON NP [facility] [address] [address] 05/18/2021 14:18:12 05/22/2021 14:35:55 Infective endocarditis 417403445 I33.0 nafcillin 2 gm q 4 hours through 05/22 to complete coursemoni tor cbc - stableupda te ID with concernsgo al is discharge on 05/23Nsg. working on appt. for IV line removal Bacterial arthritis 4824 5008 M00.88 see HPI and above Deep venou s thrombosis of upper extremity 842925016 I82.621 RUE DVTmonitor INR and titrate dose Asthenia 53996530 R53.1 improving with therapymov ing towards discharge Atrial fibrillation 4943 6004 I48.19 [id number] STACY Weber [facility] [address] [address] 05/23/2021 11:10:46 05/25/2021 11:25:14 Infective endocarditis 052453600 I33.0 ok to dc home with meds and VNA services todayfinis hed nafcillin 2 gm q 4 hours through 05/22pt will not need to have central line flushed daily as he will be having it removed by interv onal radiology on 05/26. this [facility] where he is having it removedf/u cardiologi st on 05/31f/u with pcp as out pt Bacterial arthritis 4824 5008 M00.88 as above Pressure ulcer 966456877 L89.90 will be followed by [facility] Deep venou s thrombosis of upper extremity 686275989 I82.621 RUE DVTcoumadi n therapeuti cwill have [facility] draw next PT/INR when he is admitted to their service with results sent to PCP Mixed hyperlipidemia 267 155562 E78.2 atorvastat in 20 mg qdf/u pcp Essential hypertension 78846171 I10 metoprolol 25 mg bidlasix 20 mg [...] Flores Member ID Guarantor Name 05/23/2021 1 [facility] - MEDICARE PREFERRED (MEDICARE REPLACEMENT HMO) [facility] Vladimir Flynn [id number] Vladimir Flynn 10/24/2018 2 MEDICARE B-[place]: [employer] Vladimir Flynn [id number] Vladimir Flynn Notes Date Note Type Note [...] care and therapy Feliz Gonzalez MD [address] [facility], [address], [place], [address], [facility] [employer] 05/10/2021 13:19:34 05/11/2021 text/html Pt being seen [...] daily and recheck INR Saturday. Rosenda ferro [facility] [employer] [facility] 05/11/2021 12:15:08 05/17/2021 text/html Patient is a 81 yo male resident seen for acute rounding. Completing Ab for endocarditis with potential discharge date of 05/23. Patient on coumadin for a fib with dose adjusted today. Strength and conditioning improving with therapy Feliz Gonzalez MD [address] [facility], [address], [place], [address], [facility] [employer] 05/17/2021 15:26:05 05/18/2021 text/html Vladimir is seen today for an acute visit.Alert, pleasant, NAD. Uvaldo. abx. tx. well, goal home next . when IV abx. completed.Feels well, no c/o.Working with rehab - good progress. HERMINIA DENSON NP [address] [facility], [address], [place], [address], [facility] [employer] 05/18/2021 15:00:40 05/23/2021 text/html pt seen today for discharge summary. Patient presented to [facility] er from [place] (where he had been sent after 2 days in [facility] for rehab) with fever, hypotension and [...] are resolving. was sent from there to [facility] for acute rehab. He had episodes [...] no concerns per nursing. STACY Weber [address] [facility], [address], [place], [address], [facility] [employer] 05/23/2021 12:09:56
--- OUTSIDE RECORDS SUMMARY | 2025-07-22 16:00 | XMS_ITS | Continuity of Care Document ---
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 Name Role Phone MARLENI PIRES Primary Care Provider Assessment Encounter Date Assessment Date Assessment LastModified by Organization Details LastModified Time 06/14/2025 06/14/2025 I was able to remove [...] By Organization Details Last Modified Time 06/14/2025 13896 The patient has evidence today of significant [...] Organization Details Recorded Time Diverticula r disease 176324511 Active 2015 Judy ferro [place] - [facility] 11:08:46 Benign prostatic hyperplasia 255551029 Active 2016 Judy ferro [place] - [facility] 11:08:46 Non-toxic multinodula r goiter 99761611 Active 2017 Judy ferro [place] - [facility] 11:08:46 Venous varices 009818504 Active 2017 Judy ferro [place] - [facility] 11:08:46 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 Active 2017 Judy ferro [place] - [facility] 11:08:46 Hypertensiv e disorder 96451569 Active 2017 Judy ferro [place] - [facility] 11:08:46 Atrial fibrillatio n 34944666 Active 2017 Judy ferro [place] - [facility] 5 11:08:46 Coronary arterioscle rosis 29536226 Active 2017 Judy ferro [place] - [facility] 11:08:46 Hyperlipide ezequiel 72730426 Active 2017 Judy ferro [place] [facility] 11:08:46 History of right total knee replacement 8650842158251 102 Active 2018 Judy Hall null, [place] - [facility] 11:08:46 Osteoarthri tis 599577556 Active 2018 Judy ferro [place] - [facility] 11:08:46 Endocarditi s 25479772 Active 2020 Judy ferro [place] - [facility] 11:08:46 Mitral valve regurgitati on 68014082 Active 2021 Judy ferro [place] - [facility] 11:08:46 Cardiomyopa thy 63622039 Active 2021 Judy ferro [place] - [facility] 11:08:47 Peripheral arterial disease 474504294 Active 2022 Judy ferro [place] - [facility] 11:08:46 Sensorineur al hearing loss of bilateral ears 738921152 Active 2024 Jarad Gomez, DO [address] [place] [address], [address], [facility] - [facility] 12:01:56 Impacted cerumen of bilateral ears 1078834675169 108 Active 2024 Jarad Gomez, DO [address], [address], [place] - [facility] 12:01:53 Problem Notes None recorded. Procedures Surgical History Date Name Laterality Status Provider Name and Address Organization Details Recorded Time 5 Cerumen removal without microscope left completed Jarad Gomez, DO [address] [facility],[address], [address], [place] - [facility] 06/14/2025 08:53:01 Comp Audio with Tymps - 02659 & 10822 completed MICHELLE DELONG, AUD 100 [facility],[place] [address], [place], [address], [place] - [facility] 05/31/2025 10:43:31 Cerumen removal with microscope bilateral completed Jarad Gomez, DO 100 [facility],[place] [address], [place], [address], [facility] - [facility] 05/31/2025 12:35:31 Imaging Results None recorded. Procedure Notes None recorded. Medical Equipment None Reported. Allergies Allergen ID Allergen Name Allergen Category Reaction Reaction Severity Criticality Documentation Date Start Date Code Code System Note Provider Name and Address Organization Details Recorded Time 405486 clopidogr el medicatio n rash Not available Not available 06/14/20252009 72486 RxNorm Judy ferro [place] [facility] 11:08:33 Medications Name Sig Start [...] Not Available Not Available Not Available Vitals None Recorded Social History None recorded. Functional Status None recorded. Mental Status None recorded. Family History Nothing Reported. Medical History No medical history recorded. Immunizations Vaccine Type Date Status Note Provider Nam e and Address Organization Details Recorded Time Influenza, adjuvanted, trivalent, PF 9 completed JOSEFA Valdez [facility] 06/14/2025 11:08:51 COVID-19, mRNA, LNP-S, PF, 100 mcg/0.5mL dose or 50 mcg/0.25mL dose 1 completed JOSEFA Valdez [facility] 06/14/2025 11:08:51 COVID-19, mRNA, LNP-S, PF, 100 mcg/0.5mL dose or 50 mcg/0.25mL dose 1 completed Judy ferro [facility] 06/14/2025 11:08:51 pneumococcal polysaccharide PPV23 7 completed Judy ferro [facility] 06/14/2025 11:08:51 Pneumococcal conjugate PCV 13 5 completed Judy ferro [facility] 06/14/2025 11:08:51 Influenza, split virus, trivalent, PF 0 completed Judy ferro [facility] 06/14/2025 11:08:51 Past Encounters Encounter ID Performer Location Encounter Start Date Encounter Closed Date Diagnosis/Indication Diagnosis SNOMED-CT Code Diagnosis ICD10 Code Diagnosis IMO Codes Diagnosis Note [id number] Jarad Gomez DO [facility] of [address] [address] 05/31/2025 10:04:09 05/31/2025 12:02:32 Sensorineural hearing loss of bilateral ears 362454704 H90.3 [id number] Audiologic al evaluation results: Right ear: Normal sloping to severe sensorineu ral hearing loss with good word recognitio n. Left ear: Normal sloping to severe sensorineu ral hearing loss with excellent word recognitio n. Tympanomet ry: Right Ear:Type A Left Ear:Type A Impacted c erumen of bilateral ears 4030356590 772035 H61.23 938439 [id number] Jarad Gomez DO [facility] of [address] [address] 06/14/2025 10:57:48 06/14/2025 11:25:59 Sensorineural hearing loss of bilateral ears 401707589 H90.3 [id number] Impacted c erumen of bilateral ears 1829359661 641872 H61.23 [id number] Health Concerns Section Related Observation LastModified by Organization Detai ls LastModified Time None Recorded Concern Status LastModified by Organization Details LastModified Time None Recorded Payers Encounter Date Sequence Insurance Name Policy Number Policy Flores Covered Member ID Flores Member ID Guarantor Name 06/14/[address] [facility] - MEDICARE PREFERRED (MEDICARE REPLACEMENT HMO) [employer] Vladimir Flynn [id number] Vladimir Flynn Notes Date Note Type Note Provider Name and Address Organization Details Recorded Time 06/14/2025 text/html ROS as noted in the [...] Prior Audiogram: None Jarad Gomez, DO [address] [facility],[place] [address], [place], [address], [facility] - [facility] 06/14/2025 11:25:00
--- OUTSIDE RECORDS SUMMARY | 2025-07-22 16:00 | XMS_ITS | Continuity of Care Document ---
Author Organization [place] - [facility], [facility] Address [address] [place] [address] Care Team Providers Care Three Knife Trimmer Name Role Phone MARLENI PIRES Primary Care [...] cerumen removal [email or web address] Not available 05/31/2025 12:36:12 Plan of Treatment Reminders Order Date Submit Date Provider Last Modified By Organization Details Last Modified Time Details Appointments Establish ed 15 2025 11:30A Jered Gmoez, DO Not available Not available Not available Lab None recorded. Referral None recorded. Procedures None recorded. Surgeries None recorded. Imaging None recorded. Medication Orders None recorded. Patient TargetsNo targets recorded. Patient InstructionsNo instructions recorded. Reason for Referral None Reported. Results Created Date Observation Date Name Description Value Unit Range Abnormal Flag Note LastModifiedBy Organization Detail LastModifiedTime 05/31/20 audio gram No observ ation record ed. BARCODE Not Available 2024 15:16:48 Result Notes None recorded. Problems Name Problem SNOMED Code Status Onset Date Resolution Date Notes Provider Name and Address Organization Details Recorded Time Diverticula r disease 711312947 Active 2015 Judy ferro [place] - [facility] 11:08:46 Benign prostatic hyperplasia 137445843 Active [address] [facility] 11:08:46 Non-toxic multinodula r goiter 48621959 Active 2017 Judy ferro [place] - [facility] 11:08:46 Venous varices 873813184 Active 2017 Judy ferro [place] - [facility] 11:08:46 Peripheral venous insufficien cy 03446682 Active [address] [facility] 5 11:08:46 Hypertensiv e disorder 20414147 Active [address] [facility] 11:08:46 Atrial fibrillatio n 98317877 Active [address] [facility] 11:08:46 Coronary arterioscle rosis 25229488 Active [address] [facility] 5 11:08:46 Hyperlipide ezequiel 38186831 Active [address] [facility] 5 11:08:46 History of right total knee replacement 4362145057694 102 Active [address] [facility] 5 11:08:46 Osteoarthri tis 083283115 Active 2018 Judy ferro, [place] - [facility] [place] 5 11:08:46 Endocarditi s 63373723 Active 2020 Judy ferro, [place] - [facility] [place] 5 11:08:46 Mitral valve regurgitati on 51805939 Active 2021 Judy ferro, [place] - [facility] [place] 5 11:08:46 Cardiomyopa thy 54211963 Active 2021 Judy ferro, [place] - [facility] [place] 5 11:08:47 Peripheral arterial disease 809301391 Active 2022 Judy ferro, [place] - [facility] [place] 5 11:08:46 Sensorineur al hearing loss of bilateral ears 176327528 Active 2024 Jarad Gomez, [address], [address], [facility] - [facility] [place] 5 12:01:56 Impacted cerumen of bilateral ears 8712816274496 108 Active 2024 Jarad Gomez, [address], [address], [facility] - [facility] [place] 12:01:53 Problem Notes None recorded. Procedures Surgical History Date Name Laterality Status Provider Name and Address Organization Details Recorded Time 5 Cerumen removal without microscope left completed Jarad Gomez, DO [address], [address], [place] - [facility] 06/14/2025 08:53:01 5 Comp Audio with Tymps - 09363 & 73071 completed MICHELLE DELONG, AUD 100 [facility],[address], [address], [place] - [facility] 05/31/2025 10:43:31 5 Cerumen removal with microscope bilateral completed Jarad Gomez, DO 100 [facility] [address], [place], [address], [facility] - [facility] 05/31/2025 12:35:31 Imaging Results None recorded. Procedure Notes None recorded. Medical Equipment None Reported. Allergies Allergen ID Allergen Name Allergen Category Reaction Reaction Severity Criticality Documentation Date Start Date Code Code System Note Provider Name and Address Organization Details Recorded Time 885194 clopidogr el medicatio n rash Not available Not available 06/14/20252009 93224 RxNorm Judy ferro [place] - [facility] 11:08:33 Medications Name Sig Start Date [...] Updated DateTime 05/31/2025 190.5 cm 26.9 kg/m2 66339.[address] [facility] 05/31/2025 11:11:47 Social History None recorded. Functional Status None recorded. Mental Status None recorded. Family History Nothing Reported. Medical History No medical history recorded. Immunizations Vaccine Type Date Status Note Provider Nam e and Address Organization Details Recorded Time Influenza, adjuvanted, trivalent, PF 9 completed Judy ferro [place] - [facility] 06/14/2025 11:08:51 COVID-19, mRNA, LNP-S, PF, 100 mcg/0.5mL dose or 50 mcg/0.25mL dose 1 completed Judy ferro [place] [facility] 06/14/2025 11:08:51 COVID-19, mRNA, LNP-S, PF, 100 mcg/0.5mL dose or 50 mcg/0.25mL dose [address] [facility] 06/14/2025 11:08:51 pneumococcal polysaccharide PPV23 7 completed Judy ferro [place] [facility] 06/14/2025 11:08:51 Pneumococcal conjugate PCV 13 [address] [facility] 06/14/2025 11:08:51 Influenza, split virus, trivalent, PF 0 completed Judy ferro [facility] 06/14/2025 11:08:51 Past Encounters Encounter ID Performer Location Encounter Start Date Encounter Closed Date Diagnosis/Indication Diagnosis SNOMED-CT Code Diagnosis ICD10 Code Diagnosis IMO Codes Diagnosis Note [id number] Jarad Gomez DO [facility] of [address] [address] 05/31/2025 10:04:09 05/31/2025 12:02:32 Sensorineural hearing loss of bilateral ears 777631853 H90.3 [id number] Audiologic al evaluation results: Right ear: Normal sloping to severe sensorineu ral hearing loss with good word recognitio n. Left ear: Normal sloping to severe sensorineu ral hearing loss with excellent word recognitio n. Tympanomet ry: Right Ear:Type A Left Ear:Type A Impacted c erumen of bilateral ears 6804875662 984683 H61.23 897238 Health Concerns Section Related Observation LastModified by Organization Detai ls LastModified Time None Recorded Concern Status LastModified by Organization Details LastModified Time None Recorded Payers Encounter Date Sequence Insurance Name Policy Number Policy Flores Covered Member ID Flores Member ID Guarantor Name 05/31/2025 1 [facility] - MEDICARE PREFERRED (MEDICARE REPLACEMENT HMO) [employer] Vladimir Adiel Flynn [id number] Vladimir Flynn Notes Date Note Type [...] episode recently. Prior Audiogram: None Jarad Gomez, 100 [facility],[place] [address], [place], [address], [facility] - [facility] 05/31/2025 12:36:36
--- OUTSIDE RECORDS SUMMARY | 2025-07-22 16:00 | XMS_ITS | Clinical Summary ---
Author Organization [facility] Address [address] [place] [address] Phone Care Team Providers Care Flyer Repairer Name Role Phone Kirk Randle MD Primary Care Provider [phone] Allergies Active Allergy Reactions Criticality Noted Date [...] 1 (one) time each day. Directed by [facility] 10/08/19 24 Active warfarin (COUMADIN) 5 mg tablet Take 1 tablet (5 mg total) by mouth 1 (one) time each day with dinner. See Admin Instructions. May cause heavy bleeding. Take at same time every day. Do not change dietary habits. [facility] directs coumadin instructions 90 tablet 11 10/20/19 25 Active furosemide (LASIX) 20 mg tablet Take 1 tablet (20 mg total) by mouth 1 (one) time each day. 90 tablet 2 06/30/20 25 Active warfarin (COUMADIN) 2.5 mg tablet Take one tablet daily or as directed per Coumadin clinic 90 tablet 1 04/27/20 25 026 Active atorvastatin (LIPITOR) 20 mg tablet TAKE ONE TABLET BY MOUTH EVERY DAY 90 tablet 1 06/16/20 25 Active metoprolol succinate (TOPROL-XL) 25 mg 24 hr tablet TAKE ONE TABLET BY MOUTH EVERY DAY 90 tablet 2 07/16/20 25 Active metoprolol succinate (TOPROL-XL) 25 mg 24 hr tablet TAKE ONE TABLET BY MOUTH EVERY DAY 90 tablet 1 01/19/20 25 025 Discontinued Active Problems Problem Noted Date Diagnosed Date Peripheral arterial disease (CMS/HCC V24) 2022 Cardiomyopathy (CMS/HCC V24, CMS/HCC V28) 2021 Assessment & Plan (04/19/2025 10:18 [...] on chronic anticoagulation with warfarin given elevated [id number] score. He denies any bleeding or excessive [...] (coronary artery disease) 05/14/2018 Overview (04/19/2025): Old AL; Stress test -ve 2010, treated in [facility] in 2004, stents put in. Assessment & Plan (04/19/2025 [...] Plan: Patient continues to follow closely with [facility] vascular surgery. Assessment & Plan (04/19/2025 [...] Encounters Date Type Department Care Team Description 07/14/2025 12:25 PM EST - 07/14/2025 11:59 PM EST Hospital Encounter [facility] Ultrasound [address] [place] [address] Peripheral vascular disease, unspecified ([facility] V24) Discharge Disposition: Home or Self Care 04/27/2025 Telephone [facility] [address] [place] [address] Ced Victoria MD from Last 3 Months Immunizations Immunization Administration [...] PROCEDURE: HISTORICAL CARDIAC CATH KNEE ARTHROSCOPY PROCEDURE: IN ARTHROSCOPY AID TX SPINE&/FX KNEE W/O FIXJ OTHER SURGICAL HISTORY 05/19/2018 Right PROCEDURE: IN ENDOVEN ABLTJ INCMPTNT VEIN XTR LASER 1ST VEIN TOTAL KNEE ARTHROPLASTY 10/07/2018 Right PROCEDURE: HISTORICAL TOTAL KNEE REPLACE; COMMENT: [facility] - Dr. Cazares EYE SURGERY Bilateral PROCEDURE: HISTORICAL EYE SURGERY; COMMENT: cataracts BYPASS GRAFT 08/16/2022 Right PROCEDURE: IN AMPUTATION TOE METATARSOPHALANGEAL JOINT; COMMENT: R 5th toe OTHER SURGICAL HISTORY 08/16/2022 Right PROCEDURE: IN INCISION BONE CORTEX FOOT; COMMENT: R 5th metatarsal OTHER SURGICAL HISTORY 10/23/2022 PROCEDURE: IN SLCTV CATHJ 3RD+ ORD SLCTV ABDL PEL/LXTR BRNCH OTHER SURGICAL HISTORY 10/23/2022 PROCEDURE: X-RAY EXAM OF ARM/LEG ARTERY OTHER SURGICAL HISTORY 10/23/2022 PROCEDURE: ULTRASOUND GUIDANCE FOR VASCULAR AC OTHER SURGICAL HISTORY 07/09/2023 PROCEDURE: IN REVSC OPN/PRQ TIB/RON W/ANGIOPLASTY UNI OTHER SURGICAL HISTORY 07/09/2023 PROCEDURE: ULTRASOUND GUIDANCE FOR VASCULAR AC Medical History Medical History Date Comments Atrial fibrillation (CMS/HCC V24, CMS/HCC V28) DX:Atrial fibrillation (HCC) Coronary artery disease DX:Coron randy artery disease; COMMENT: Old AL; Stress test -ve 2010, treated in [facility] in 2003, stents put in. Cataracts, [...] Care Team (Late st Contact Info) Description 08/19/2025 2:30 PM EST Office Visit Vascular Surgery - [place] [address] [place] [address] Emerald Macario MD [address] [place] [address] 09/14/2025 11:00 AM EST Office Visit Internal Medicine - [place] [address] [place] [id number] Kirk Randle MD [address] [place] [address] Health Maintenance Due Date Last Done Comments DTaP,Tdap,and Td Vaccines (1 - Tdap) 1961 Zoster Vaccines (1 of 2) 01/02/1992 RSV Immunization Adult Patients (1 - 1-dose 75+ series) 2017 Social Influencers of Health Screening 08/18/2022 Falls Risk Assessment 09/30/2025 09/30/2024 Hypertension/CHF/CAD Annual BMP Blood Test 09/30/2025 09/30/2024, 05/23/2023 Medicare Annual Wellness Visit 09/30/2025 09/30/2024 COVID-19 Vaccine ( season) 2025 05/27/2025, 06/08/2024, 06/14/2023, Additional history exists Cholesterol Screening (Lipid Panel) 09/30/2029 09/30/2024, 12/04/2021 Pneumococcal Vaccine: 50+ Years Completed 07/30/2017, 06/21/2015 Depression Screening Completed 09/30/2024 Influenza Vaccine Completed 05/27/2025, , 06/14/2023, Additional history exists HIB Vaccines Aged Out [...] General No change(2024 2:12 PM EDT) Ara Adams, OT Note: 1) Pt will return demo HEP/maintain symptom log MET 2) Pt will report no signif vertiginous symptoms w/ positional testing all canals PERSISTENT LIGHTHEADED/HEAD COLLAZO SENSATION, not true vertigo Procedures Procedure Name Priority Date/Time Associated Diagnosis Comments COMPREHENSIVE METABOLIC PANEL Routine 09/30/2024 10:13 AM EST Cardiomyopathy, unspecified type (CMS/HCC V24, CMS/HCC V28) Primary hypertension Hypercholesterolemi a LIPID PANEL WITH REFLEX TO DIRECT LDL Routine 09/30/2024 10:13 AM EST Cardiomyopathy, unspecified type (CMS/HCC V24, CMS/HCC V28) Primary hypertension Hypercholesterolemi a from Last 3 Months or Most Recently Relevant to Health Maintenance Results * Lipid panel with reflex to direct LDL (09/30/2024 10:13 AM EST) Cholesterol 117 0 - 200 mg/dL LAB CHEMISTRY METHOD 09/30/2024 1:[address] [facility] Triglycerides 77 0 - 150 mg/dL LAB CHEMISTRY METHOD 09/30/2024 1:14 PM [facility] HDL 48 >=40 mg/dL [...] MD LAB BLOOD ORDERABLES Final Resul t [facility] [address] [place] [address], * (ABNORMAL) Comprehensive metabolic panel (09/30/2024 10:13 [...] LAB CHEMISTRY METHOD 09/30/2024 1:[address] [facility] Total Bilirubin 1.2 0.0 - 1.4 mg/dL LAB CHEMISTRY METHOD 09/30/2024 1:[address] [facility] Blood Venous blood specimen / Unknown Venipuncture / Unknown 09/30/2024 10:13 AM EST 09/30/2024 11:01 AM EST us Kirk Randle MD LAB BLOOD ORDERABLES Final Resul t [facility] ([facility] [address] [place] [address], from Last 3 Months or Most Recently Relevant to Health Maintenance Insurance [employer] Advance Directives Documents on File Type Date Recorded 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
== END 2025-07-22 12:53 | disposition home or self-care (01) ==
LOC: HO.NEURO 12:52
PROVIDERS: PCP Internal Medicine; Visit Provider Psychiatry & Neurology Neurology
DX: G62.89 Other specified polyneuropathies (principal)
CPT/HCPCS: 95886; 95911

== ENCOUNTER → 2025-07-22 12:56 | Outpatient (BNV) | payer MEDICARE, SELFPAY | PROVIDERS: PCP Internal Medicine; Visit Provider Psychiatry & Neurology Neurology | DX: G62.89 Other specified polyneuropathies (principal) | CPT/HCPCS: 95886; 95911 ==

== ENCOUNTER 2025-07-26 11:33 | Outpatient (AMB) | payer MEDICARE, SELFPAY ==
--- NOTE | 2025-07-26 11:38 | A.OFFVIS_ITS ---
Intake Visit Reasons: testing follow up Allergies clopidogrel (From PLAVIX) Allergy (Unknown, Verified 07/06/25 13:47) RASH HPI Comments Details: 85 years old man with atrial fibrillation on anticoagulation, who suffered from endocarditis in 2020 when he was admitted [facility] and had prolonged hospitalization. His brain MRI at that time revealed multiple small lesions that were considered to be septic embolization. After hospitalization, he had to learn to walk again and now was using a cane. His examination revealed loss of reflexes in legs and arms. Romberg was positive. He was here with complain of brief episodes of dizziness that were suggestive of benign paroxysmal positional vertigo. He was educated about this concept and was advised to be careful and utilize meclizine 12.5 mg on as needed basis. 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 In addition, changes brain also had an impact. Cognitively speaking, he had not noted any problem with his memory. He is presenting with dizziness and difficulty walking. The dizziness episodes began a couple of years ago and are described as lightheadedness occurring with position changes, such as rolling over in bed or standing up quickly. These episodes are short-lived, typically lasting a few seconds, and are sometimes accompanied by slight nausea. The patient has experienced these sensations recently more frequently, although they had subsided for a while. No spinning sensation is noted. His difficulty walking started after a prolonged hospital stay in 2020 due to viral endocarditis and associated neurological complications. Post- hospitalization, he developed neuropathy, notably affecting his walking. He underwent extended rehabilitation at that time but feels that full recovery was not achieved. The neuropathy mainly affects his heels, likely contributing to his ambulation issues, and he uses a cane for stability. [facility] Medical History (Updated 07/26/25 @ 11:49 by Gagan West MD) Diverticulosis HTN (hypertension) Hyperlipemia Osteoarthritis Mitral regurgitation Cardiomyopathy Wound of foot Osteomyelitis Osteomyelitis Endocarditis due to Staphylococcus DVT of right axillary vein, acute Dementia Atrial fibrillation Bacteremia Surgical History (Updated 07/02/25 @ 13:43 by NAHED Rosenberg) H/O arthroscopic knee surgery H/O eye surgery H/O cardiac catheterization Family History (Updated 07/02/25 @ 13:45 by NAHED Rosenberg) Father CAD (coronary artery disease) Alcohol abuse Mother Leukemia Brother Cancer of kidney Sister Atrial fibrillation Social History Household Members: Friend(s) Housing: Condominium Alcohol intake: unknown Patient Tobacco Use Status: Never used Tobacco Substance Use Type: Marijuana service: No Current occupational status: retired Review of Systems Narrative - Ears: Denies ear pain, reports high-frequency hearing loss - Neurological: Reports dizziness, lightheadedness with position changes; difficulty walking - General: Denies alcohol and recent cannabis use Physical Exam Neuro Other: Mental Status: Alert and oriented to person, place, and time. Normal attention. Normal spontaneous speech, fluency, and comprehension. No obvious issues with mood and memory. Affect is appropriate. Cranial Nerves: CN II: Visual sheth full to confrontation, visual acuity intact. CN III, IV, : Pupils equal, round, reactive to light and accommodation. Extraocular movements are normal. CN V: Facial sensation is normal. CN VII: Facial movements symmetrical. CN VIII: Hearing intact to bedside conversation is normal. CN IX, X: Palate elevates symmetrically. CN XI: Shoulder shrug and head turn symmetrical. CN XII: Tongue midline without atrophy or fasciculations. Motor: Deep tendon reflexes are absent. Gait: Slightly wide-based cautious with a cane. Extrapyramidal: Full facial expressions and blinking. No rigidity. Movements are appropriate with no tremor or abnormality. Speech: Normal; no dysarthria or tremor. Assessment & Plan Assessment & Plan (1) Peripheral neuropathy: Comment: EMG/NCS LEs at [facility] in Jul 2025: Severe sensory > motor axonal PN Code(s): G62.9 - Polyneuropathy, unspecified Category: Medical Qualifiers: Peripheral neuropathy type: polyneuropathy, unspecified Qualified Code(s): G62.9 - Polyneuropathy, unspecified (2) Multifactorial gait disorder: Code(s): R26.89 - Other abnormalities of gait and mobility Category: Medical Plan Impression: 1. Multifactorial gait disorder 2. 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 Benign paroxysmal positional vertigo Recommendations: 1. Reassurance and education about his conditions. 2. Stay physically active and continue to use walking or other type of leg exercises. 3. Common sense measures to avoid any accidents or falls. Somewhat discussed and a reference was provided to him to read more about it. Coding Level of Care Code Est Pt Level 4 (35812) Diagnoses Peripheral polyneuropathy G62.9 Peripheral neuropathy type: polyneuropathy, unspecified Multifactorial gait disorder R26.89
--- OUTSIDE RECORDS SUMMARY | 2025-07-26 23:53 | XMS_ITS | Continuity of Care Document ---
Author Organization [place] - [facility], [facility] Address [address] [place] [address] Care Team Providers Care Assembler Bicycle Name Role Phone MARLENI PIRES Primary Care [...] Organization Details Recorded Time Diverticula r disease 078628720 Active 2015 Judy ferro [place] - [facility] 11:08:46 Benign prostatic hyperplasia 087486090 Active 2016 Judy ferro [facility] 11:08:46 Non-toxic multinodula r goiter 33190579 Active 2017 Judy ferro [place] - [facility] 11:08:46 Venous varices 155581165 Active 2017 Judy ferro [place] - [facility] 11:08:46 Peripheral venous insufficien cy 94371912 Active 2017 Judy ferro [facility] 5 11:08:46 Hypertensiv e disorder 88268898 Active 2017 Judy ferro [facility] 11:08:46 Atrial fibrillatio n 05447475 Active 2017 Judy ferro [facility] 11:08:46 Coronary arterioscle rosis 73485644 Active 2017 Judy ferro [facility] 5 11:08:46 Hyperlipide ezequiel 61258358 Active 2017 Judy ferro [facility] 5 11:08:46 History of right total knee replacement 9416260718908 102 Active 2018 Judy ferro [facility] 5 11:08:46 Osteoarthri tis 412635820 Active 2018 Judy ferro, [place] - [facility] [place] 5 11:08:46 Endocarditi s 19488218 Active 2020 Judy ferro, [place] - [facility] [place] 5 11:08:46 Mitral valve regurgitati on 74525553 Active 2021 Judy ferro, [place] - [facility] [place] 5 11:08:46 Cardiomyopa thy 10380430 Active 2021 Judy ferro, [place] - [facility] [place] 5 11:08:47 Peripheral arterial disease 537836011 Active 2022 Judy ferro, [place] - [facility] [place] 5 11:08:46 Sensorineur al hearing loss of bilateral ears 519397237 Active 2024 Jarad Gomez, [address], [address], [facility] - [facility] [place] 5 12:01:56 Impacted cerumen of bilateral ears 6286465029596 108 Active 2024 Jarad Gomez, [address], [address], [facility] - [facility] [place] 12:01:53 Problem Notes None recorded. Procedures Surgical History Date Name Laterality Status Provider Name and Address Organization Details Recorded Time 5 Cerumen removal without microscope left completed Jarad Gomez, DO [address], [address], [place] - [facility] 06/14/2025 08:53:01 5 Comp Audio with Tymps - 23380 & 59811 completed MICHELLE DELONG, AUD [address] [facility],[address], [address], [place] - [facility] [place] 05/31/2025 10:43:31 5 Cerumen removal with microscope bilateral completed Jarad Gomez, DO 100 [facility] [address], [place], [address], [facility] - [facility] 05/31/2025 12:35:31 Imaging Results None recorded. Procedure Notes None recorded. Medical Equipment None Reported. Allergies Allergen ID Allergen Name Allergen Category Reaction Reaction Severity Criticality Documentation Date Start Date Code Code System Note Provider Name and Address Organization Details Recorded Time 005953 clopidogr el medicatio n rash Not available Not available 06/14/20252009 15101 RxNorm Judy ferro [place] - [facility] 11:08:33 Medications Name Sig Start Date [...] Updated DateTime 05/31/2025 190.5 cm 26.9 kg/m2 16247.36 g Mariluz No [facility] 05/31/2025 11:11:47 Social History None recorded. Functional Status None recorded. Mental Status None recorded. Family History Nothing Reported. Medical History No medical history recorded. Immunizations Vaccine Type Date Status Note Provider Nam e and Address Organization Details Recorded Time Influenza, adjuvanted, trivalent, PF 9 completed Judy ferro [place] - [facility] 06/14/2025 11:08:51 COVID-19, mRNA, LNP-S, PF, 100 mcg/0.5mL dose or 50 mcg/0.25mL dose 1 completed Judy ferro [place] [facility] 06/14/2025 11:08:51 COVID-19, mRNA, LNP-S, PF, 100 mcg/0.5mL dose or 50 mcg/0.25mL dose 1 completed Judy ferro [facility] 06/14/2025 11:08:51 pneumococcal polysaccharide PPV23 7 completed Judy ferro [place] [facility] 06/14/2025 11:08:51 Pneumococcal conjugate PCV 13 5 completed Judy ferro [facility] 06/14/2025 11:08:51 Influenza, split virus, trivalent, PF 0 completed Judy ferro [facility] 06/14/2025 11:08:51 Past Encounters Encounter ID Performer Location Encounter Start Date Encounter Closed Date Diagnosis/Indication Diagnosis SNOMED-CT Code Diagnosis ICD10 Code Diagnosis IMO Codes Diagnosis Note [id number] Jarad Gomez DO [facility] [address] [address] 05/31/2025 10:04:09 05/31/2025 12:02:32 Sensorineural hearing loss of bilateral ears 742384011 H90.3 [id number] Audiologic al evaluation results: Right ear: Normal sloping to severe sensorineu ral hearing loss with good word recognitio n. Left ear: Normal sloping to severe sensorineu ral hearing loss with excellent word recognitio n. Tympanomet ry: Right Ear:Type A Left Ear:Type A Impacted c erumen of bilateral ears 9384711939 312734 H61.23 [id number] Health Concerns Section Related Observation LastModified by Organization Detai ls LastModified Time None Recorded Concern Status LastModified by Organization Details LastModified Time None Recorded Payers Encounter Date Sequence Insurance Name Policy Number Policy Flores Covered Member ID Flores Member ID Guarantor Name 05/31/2025 1 [facility] - MEDICARE PREFERRED (MEDICARE REPLACEMENT HMO) [id number] Vladimir Adiel Flynn [id number] Vladimir Flynn Notes Date Note Type [...] recently. Prior Audiogram: None Jarad Gomez, [address] [facility],[address] [place] [address], [place], [address], [facility] - [facility] 05/31/2025 12:36:36
--- OUTSIDE RECORDS SUMMARY | 2025-07-26 23:53 | XMS_ITS | Data Portability ---
Author Organization [place] - [facility], Allergy Address [address] [place] [address] Care Team Providers Care Foot Worker Name Role Phone MARLENI PIRES Primary Care Provider [phone] Assessment Encounter Date Assessment Date Assessment LastModified [...] By Organization Details Last Modified Time 06/14/2025 [id number] The patient has evidence today of significant [...] Organization Details Recorded Time Diverticula r disease 041978953 Active 2015 Judy ferro [place] - [facility] 5 11:08:46 Benign prostatic hyperplasia 057226272 Active 2016 JOSEFA Valdez [facility] 5 11:08:46 Non-toxic multinodula r goiter 70045837 Active 2017 Judy ferro [place] - [facility] 5 11:08:46 Venous varices 336255419 Active 2017 Judy ferro [place] - [facility] [place] 5 11:08:46 Peripheral venous insufficien cy 95688814 Active 2017 Judy ferro [place] - [facility] [place] 5 11:08:46 Hypertensiv e disorder 69147366 Active 2017 Judy ferro [place] - [facility] [place] 5 11:08:46 Atrial fibrillatio n 12707634 Active 2017 Judy ferro [place] - [facility] [place] 11:08:46 Coronary arterioscle rosis 98239929 Active 2017 Judy ferro [place] - [facility] [place] 11:08:46 Hyperlipide ezequiel 71058425 Active 2017 Judy ferro [place] - [facility] [place] 11:08:46 History of right total knee replacement 8902243563285 102 Active 2018 Judy ferro [place] - [facility] [place] 11:08:46 Osteoarthri tis 821595673 Active 2018 Judy ferro [place] - [facility] [place] 5 11:08:46 Endocarditi s 75669743 Active 2020 Judy ferro [place] - [facility] [place] 5 11:08:46 Mitral valve regurgitati on 42103456 Active 2021 Judy ferro [place] - [facility] [place] 5 11:08:46 Cardiomyopa thy 11728271 Active 2021 Judy ferro [place] - [facility] [place] 5 11:08:47 Peripheral arterial disease 316136809 Active 2022 Judy ferro [place] - [facility] [place] 5 11:08:46 Sensorineur al hearing loss of bilateral ears 488385578 Active 2024 Jarad Gomez, [address] [address], [place], [address], [place] - [facility] 5 12:01:56 Impacted cerumen of bilateral ears 3950670049490 108 Active 2024 Jarad Jason, DO [address] [facility], [place], [address], [place] - [facility] [place] 12:01:53 Problem Notes None recorded. Procedures Surgical History Date Name Laterality Status Provider Name and Address Organization Details Recorded Time Cerumen removal without microscope left completed Jarad Gomez, 100 [facility],[address], [address], [facility] 06/14/2025 08:53:01 Comp Audio with Tymps - 97937 & 41593 completed MICHELLE DELONG, AUD [address] [facility],[address] [address], [place], [address], [facility] 05/31/2025 10:43:31 Cerumen removal with microscope bilateral completed Jarad Gomez, [address] [facility],[address] [address], [place], [address], [facility] 05/31/2025 12:35:31 Imaging Results None recorded. Procedure Notes None recorded. Medical Equipment None Reported. Allergies Allergen ID Allergen Name Allergen Category Reaction Reaction Severity Criticality Documentation Date Start Date Code Code System Note Provider Name and Address Organization Details Recorded Time 927713 clopidogr el medicatio n rash Not available Not available 06/14/20252009 51752 RxNorm [place] - [facility] 11:08:33 Medications Name Sig Start Date Stop [...] Updated DateTime 05/31/2025 190.5 cm 26.9 kg/m2 65415.36 g Mariluz No [place] - [facility] 05/31/2025 11:11:47 Social History None recorded. Functional Status None recorded. Mental Status None recorded. Family History Nothing Reported. Medical History No medical history recorded. Immunizations Vaccine Type Date Status Note Provider Nam e and Address Organization Details Recorded Time Influenza, adjuvanted, trivalent, PF 9 completed Judy ferro [facility] 06/14/2025 11:08:51 COVID-19, mRNA, LNP-S, PF, 100 mcg/0.5mL dose or 50 mcg/0.25mL dose 1 completed Judy ferro [facility] 06/14/2025 11:08:51 COVID-19, mRNA, LNP-S, PF, 100 mcg/0.5mL dose or 50 mcg/0.25mL dose 1 completed Judy ferro [facility] 06/14/2025 11:08:51 pneumococcal polysaccharide PPV23 7 completed Judy ferro [facility] 06/14/2025 11:08:51 Pneumococcal conjugate PCV 13 5 completed Judy ferro [facility] 06/14/2025 11:08:51 Influenza, split virus, trivalent, PF 0 completed Judy ferro [facility] 06/14/2025 11:08:51 Past Encounters Encounter ID Performer Location Encounter Start Date Encounter Closed Date Diagnosis/Indication Diagnosis SNOMED-CT Code Diagnosis ICD10 Code Diagnosis IMO Codes Diagnosis Note [id number] Jarad Gomez DO [facility] [address] [address] 05/31/2025 10:04:09 05/31/2025 12:02:32 Sensorineural hearing loss of bilateral ears 018778678 H90.3 [id number] Audiologic al evaluation results: Right ear: Normal sloping to severe sensorineu ral hearing loss with good word recognitio n. Left ear: Normal sloping to severe sensorineu ral hearing loss with excellent word recognitio n. Tympanomet ry: Right Ear:Type A Left Ear:Type A Impacted c erumen of bilateral ears 3811824150 461626 H61.23 [id number] Jarad Gomez DO [facility] [address] [address] 06/14/2025 10:57:48 06/14/2025 11:25:59 Sensorineural hearing loss of bilateral ears 592833998 H90.3 [id number] [id number] Impacted c erumen of bilateral ears 9939202097 845491 H61.23 [id number] Health Concerns Section Related Observation LastModified by Organization Detai ls LastModified Time None Recorded Concern Status LastModified by Organization Details LastModified Time None Recorded Advance Directives Directive None Recorded Payers Insurance Date Sequence Insurance Name Policy Number Policy Flores Covered Member ID Flores Member ID Guarantor Name 04/20/2025 1 [employer] Vladimir Flynn [id number] 1 Vladimir Flynn 06/14/2025 1 [facility] - MEDICARE PREFERRED (MEDICARE REPLACEMENT HMO) [employer] Vladimir Flynn [id number] Vladimir Flynn Notes Date Note Type [...] Prior Audiogram: None Jarad Gomez, DO [address] [facility],[address] [address], [place], [address], [facility] 05/31/2025 12:36:36 06/14/2025 text/html ROS as noted [...] Prior Audiogram: None Jarad Gomez, DO [address] [facility],[place] [address], [place], [address], [facility] 06/14/2025 11:25:00
--- OUTSIDE RECORDS SUMMARY | 2025-07-26 23:53 | XMS_ITS | Continuity of Care Document ---
Author Organization [place] - [facility], [facility] Address [address] [place] [address] Care Team Providers Care Front Maker Name Role Phone MARLENI PIRES Primary Care [...] By Organization Details Last Modified Time 06/14/2025 71053 The patient has evidence today of significant [...] Organization Details Recorded Time Diverticula r disease 732207621 Active 2015 Judy ferro [place] - [facility] 11:08:46 Benign prostatic hyperplasia 113099848 Active 2016 Judy ferro [place] - [facility] 11:08:46 Non-toxic multinodula r goiter 84083379 Active 2017 Judy ferro [place] - [facility] 11:08:46 Venous varices 806558747 Active 2017 Judy ferro [place] - [facility] 11:08:46 Peripheral venous insufficien cy 23154331 Active 2017 Judy ferro [place] - [facility] 11:08:46 Hypertensiv e disorder 28866127 Active 2017 Judy ferro [place] - [facility] 11:08:46 Atrial fibrillatio n 95260695 Active 2017 Judy ferro [place] - [facility] 5 11:08:46 Coronary arterioscle rosis 56941818 Active 2017 Judy ferro [place] - [facility] 11:08:46 Hyperlipide ezequiel 79282428 Active 2017 Judy ferro [place] [facility] 11:08:46 History of right total knee replacement 5376834538243 102 Active 2018 Judy Hall null, [place] - [facility] [place] 11:08:46 Osteoarthri tis 435747454 Active 2018 Judy ferro [place] - [facility] [place] 11:08:46 Endocarditi s 61001744 Active 2020 Judy ferro [place] - [facility] [place] 11:08:46 Mitral valve regurgitati on 68827988 Active 2021 Judy ferro [place] - [facility] [place] 11:08:46 Cardiomyopa thy 64565202 Active 2021 Judy ferro [place] - [facility] [place] 11:08:47 Peripheral arterial disease 633193243 Active 2022 Judy ferro [place] - [facility] [place] 11:08:46 Sensorineur al hearing loss of bilateral ears 378229036 Active 2024 Jarad Gomez, DO [address] [place] [address], [address], [facility] - [facility] [place] 12:01:56 Impacted cerumen of bilateral ears 8008498725570 108 Active 2024 Jarad Gomez, DO [address], [address], [place] - [facility] [place] 12:01:53 Problem Notes None recorded. Procedures Surgical History Date Name Laterality Status Provider Name and Address Organization Details Recorded Time 5 Cerumen removal without microscope left completed Jarad Gomez, DO [address] [facility],[address], [address], [place] - [facility] [place] 06/14/2025 08:53:01 Comp Audio with Tymps - 92883 & 92878 completed MICHELLE DELONG, AUD [address] [facility],[place] [address], [place], [address], [place] - [facility] [place] 05/31/2025 10:43:31 Cerumen removal with microscope bilateral completed Jarad Gomez, DO [address] [facility],[place] [address], [place], [address], [facility] - [facility] 05/31/2025 12:35:31 Imaging Results None recorded. Procedure Notes None recorded. Medical Equipment None Reported. Allergies Allergen ID Allergen Name Allergen Category Reaction Reaction Severity Criticality Documentation Date Start Date Code Code System Note Provider Name and Address Organization Details Recorded Time 329520 clopidogr el medicatio n rash Not available Not available 06/14/20252009 44069 RxNorm Judy ferro [place] [facility] 11:08:33 Medications Name Sig Start Date Stop [...] completed JOSEFA Valdez [facility] 06/14/2025 11:08:51 COVID-19, mRNA, LNP-S, PF, 100 mcg/0.5mL dose or 50 mcg/0.25mL dose 1 completed JOSEFA Valdez [facility] 06/14/2025 11:08:51 COVID-19, mRNA, LNP-S, PF, 100 mcg/0.5mL dose or 50 mcg/0.25mL dose 1 completed Judy ferro [facility] 06/14/2025 11:08:51 pneumococcal polysaccharide PPV23 7 completed Judy ferro [facility] 06/14/2025 11:08:51 Pneumococcal conjugate PCV 13 5 completed Judy ferro [facility] 06/14/2025 11:08:51 Influenza, split virus, trivalent, PF 0 completed Judy ferro [facility] 06/14/2025 11:08:51 Past Encounters Encounter ID Performer Location Encounter Start Date Encounter Closed Date Diagnosis/Indication Diagnosis SNOMED-CT Code Diagnosis ICD10 Code Diagnosis IMO Codes Diagnosis Note [id number] Jarad Gomez DO [facility] of [address] [address] 05/31/2025 10:04:09 05/31/2025 12:02:32 Sensorineural hearing loss of bilateral ears 772625742 H90.3 [id number] [id number] Audiologic al evaluation results: Right ear: Normal sloping to severe sensorineu ral hearing loss with good word recognitio n. Left ear: Normal sloping to severe sensorineu ral hearing loss with excellent word recognitio n. Tympanomet ry: Right Ear:Type A Left Ear:Type A Impacted c erumen of bilateral ears 0689127386 995544 H61.23 [id number] Jarad Gomez DO [facility] of [address] [address] 06/14/2025 10:57:48 06/14/2025 11:25:59 Sensorineural hearing loss of bilateral ears 826499989 H90.3 [id number] Impacted c erumen of bilateral ears 1920364888 774492 H61.23 [id number] Health Concerns Section Related Observation LastModified by Organization Detai ls LastModified Time None Recorded Concern Status LastModified by Organization Details LastModified Time None Recorded Payers Encounter Date Sequence Insurance Name Policy Number Policy Flores Covered Member ID Flores Member ID Guarantor Name 06/14/2025 1 [facility] - MEDICARE PREFERRED (MEDICARE REPLACEMENT HMO) [id number] Vladimir Flynn [id number] Vladimir Flynn Notes Date Note Type [...] Prior Audiogram: None Jarad Gomez, DO [address] [facility],[place] [address], [place], [address], [facility] - [facility] 06/14/2025 11:25:00
--- OUTSIDE RECORDS SUMMARY | 2025-07-26 23:53 | XMS_ITS | Data Portability ---
Author Organization [facility] Symptom.ly [facility], Main Office Address [address] [facility] [place] [address] Care Team Providers Care Bunk Assembler Name Role Phone BARI AMIN - 2ND FLOOR OTHER Assessment Encounter Date Assessment Date Assessment LastModified by Organization Details LastModified Time 05/23/2021 05/23/202105/23 wbc 7.2, hgb 13.6, plt 262, na 142, k 3.7, creat 0.8, sed rate 24, crp 3.76 Not available 05/23/2021 12:08:48 Plan of Treatment [...] By Organization Details Last Modified Time 05/23/2021 [id number] exam of pt, revi ew of chart, discussion with social work, interventional radiology 50 minutes Not available 05/23/2021 12:09:48 Reason for Referral None Reported. Problems Name Problem SNOMED Code Status Onset Date Resolution Date Notes Provider Name and Address Organization Details Recorded Time Osteoarthri tis of left knee joint [id number] 09 Active 2018 Feliz Gonzalez MD [address] [facility], [address], [place], [address], [facility] 9 15:05:21 Essential hypertensio n 83200540 Active 2018 Feliz Gonzalez MD [address] [facility], [address], [place], [address], [facility] 9 15:05:25 Mixed hyperlipide ezequiel 169633366 Active 2018 Feliz Gonzalez MD [address], [address], [place], [address], [facility] 9 15:05:33 Unsteady gait Active 2018 Feliz Gonzalez MD [address], [address], [place], [address], [facility] 9 15:05:38 Atrial fibrillatio n 06712840 Active 2018 STACY SULLIVAN [address], [address], [place], [address], [facility] 9 08:43:44 Infective endocarditi s 951401600 Active 2020 STACY SULLIVAN [address], [address], [place], [address], [facility] 1 08:27:08 Osteoarthri tis 656862280 Active 2020 STACY SULLIVAN [address], [address], [place], [address], [facility] 1 08:27:39 History of cerebrovasc ular accident 092643044 Active 2020 STACY SULLIVAN [address], [address], [place], [address], [facility] 1 08:28:06 Recurrent falls 260778187 Active 2020 STACY SULLIVAN [address], [address], [place], [address], [facility] 1 08:28:20 Pressure ulcer Active 2020 STACY SULLIVAN [address], [address], [place], [address], [facility] 1 08:30:05 Deep venous thrombosis of upper extremity 557844056 Active 2020 STACY SULLIVAN [address], [address], [place], [address], [facility] [place] 08:30:52 Multinodula r goiter 135985346 Active 2020 KYREE SULLIVANP [address] [facility], [address], [place], [address], [facility] 08:32:27 Hypomagnese ezequiel 750850162 Active 2020 KYREE SULLIVANP [address] [facility], [address], [place], [address], [facility] [place] 08:57:53 Asthenia 80243470 Active 2020 Rosenda ferro, [place] 11:24:32 Problem Notes None recorded. Procedures Surgical History Date Name Laterality Status Provider Name and Address Organization Details Recorded Time percutaneous transluminal coronary angioplasty completed KYREE SULLIVANP [address] [place] [address], [address], [place], [address], [email or web address] 05/05/2021 08:29:08 Imaging Results None recorded. Procedure Notes None recorded. Medical Equipment None Reported. Allergies Allergen ID Allergen Name Allergen Category Reaction Reaction Severity Criticality Documentation Date Start Date Code Code System Note Provider Name and Address Organization Details Recorded Time 78464 Plavix medicatio n rash severe Not available 10/13/2018 51942 2 RxNorm STACY SULLIVAN [address] [facility], [address], [place], [address], [facility] 9 08:21:26 Medications Not known to be on any medication Vitals Date Recorded Systolic And Diastolic Provider Name and Address Organization Details Last Updated DateTime 05/10/2021 124/65 mm[Hg] Feliz Gonzalez MD [address] [facility], [address], [place], [address], [facility] 05/10/2021 12:55:10 Date Recorded Body temperature Heart rate Respiratory rate Oxygen saturation Oxygen saturation in Arterial blood by Pulse oximetry Systolic And Diastolic Provider Name and Address Organization Details Last Updated DateTime 97.2 [degF] 79 /min 18 /min 96 % 96 % 145/73 mm[Hg] Rosenda bower [facility] 1 11:13:36 Date Recorded Systolic And Diastolic Provider Name and Address Organization Details Last Updated DateTime 05/17/2021 104/74 mm[Hg] Feliz Gonzalez MD [address] [facility], [address], [place], [address], [facility] 05/17/2021 15:20:50 Date Recorded Heart rate Respiratory rate Body temperature Oxygen saturation Oxygen saturation in Arterial blood by Pulse oximetry Systolic And Diastolic Provider Name and Address Organization Details Last Updated DateTime 1 73 /min 18 /min 97.4 [degF] 93 % 93 % 129/89 mm[Hg] HERMINIA DENSON NP [address] [facility], [address], [place], [address], [facility] 1 14:20:11 Date Recorded Body temperature Oxygen saturation Oxygen saturation in Arterial blood by Pulse oximetry Heart rate Respiratory rate Systolic And Diastolic Provider Name and Address Organization Details Last Updated DateTime 1 96.6 [degF] 97 % 97 % 89 /min 18 /min 124/81 mm[Hg] STACY Weber [address] [facility], [address], [place], [address], [email or web address] 1 11:12:09 Social History Question Answer Notes LastModified by Organizat ion Details LastModified Time Tobacco Smoking Status Never Smoker Not Available [facility] 07/05/2020 03:13:23 Do You Have An Advance Directive? Yes FULL CODE/use Dialysis/unde cided About Nutrition/use Hydration Information not available 05/05/2021 What Is Your Code Status? Full Code Information not available 05/05/2021 Legal Guardian? No Information not available 05/05/2021 Do You Have A Medical Power Of Electronic Equipment [employer]? Yes HCP On File Information not available 05/05/2021 Has Tobacco Cessation Counseling Been Provided? No NA Information not available 05/05/2021 Sex: Unknown Functional Status Question Answer Note LastModified by Organizat ion Details LastModified Time Do you or have you ever used any other forms of tobacco or nicotine? No Information not available 05/05/2021 What is your level of alcohol consumption? Occasional [id number] Information not available 07/05/2020 Mental Status Question Answer Note LastModified by Organization D etails LastModified Time Do you feel stressed (tense, restless, nervous, or anxious, or unable to sleep at night)? [id number] Information not available 05/05/2021 Family History Nothing Reported Notes:N/C Medical History No medical history recorded. Immunizations Vaccine Type Date Status Note Provider Nam e and Address Organization Details Recorded Time COVID-19, mRNA, LNP-S, PF, 100 mcg/0.5mL dose or 50 mcg/0.25mL dose 10/11/2020 completed STACY SULLIVAN [address] [facility], [address], [place], [address], [facility] 05/05/2021 11:09:25 COVID-19, mRNA, LNP-S, PF, 100 mcg/0.5mL dose or 50 mcg/0.25mL dose 11/08/2020 completed STACY SULLIVAN [address] [facility], [address], [place], [address], [facility] Symptom.ly [facility] 05/05/2021 11:09:40 influenza, unspecified formulation 09/08/2018 [facility] 12/19/2018 15:12:21 Past Encounters Encounter ID Performer Location Encounter Start Date Encounter Closed Date Diagnosis/Indication Diagnosis SNOMED-CT Code Diagnosis ICD10 Code Diagnosis IMO Codes Diagnosis Note [id number] Feliz Gonzalez MD [address] [address] 10/10/2018 14:54:06 10/28/2018 16:15:02 Osteoarthritis of left knee joint 2654846378 77382 M17.12 end stage OA now s/p TKR leftfollow ortho recsPT OT eval and treatmonit or for pain control and constipati onmonitor and adjust coumadin for DVT prophylaxi sgiven sub-therap utic INR will add lovenox 40 mg sc qd till theraputic Essential hypertension 29297558 I10 metoprolol 25 mg qdmonitor bp Mixed hyperlipidemia 267 734086 E78.2 simvastati n 40 mg qdcontinue Unsteady gait 609916045 R26.81 PT OT eval and treat [id number] [address] 10/13/2018 08:02:37 10/28/2018 16:16:29 Osteoarthritis of left knee joint 4183279175 07514 M17.12 follow ortho recsmonito r and adjust coumadinlo venox 40 mg sc qd till theraputic follow up with ortho and PCP Essential hypertension 07551479 I10 metoprolol 25 mg qdfollow up with PCP Mixed hyperlipidemia 267 591608 E78.2 simvastati n 40 mg qdfollow up with PCP Unsteady gait 801878078 R26.81 follow up with PCP Atrial fibrillation 4943 6004 I48.2 coumadin therapymon itor INRscontin ue lovenox til over 2follow up with cardiology and PCP [id number] [facility] [address] 05/05/2021 08:21:13 05/10/2021 15:30:51 Infective endocarditis 432303081 I33.0 nafcillin 2 gm IV q 4 hrs with stop date of 05/22/21pro biotic bidPICC line monitoring monitor labs Osteoarthritis 508734637 M15.0 tylenol 650 mg q 4 hrs prnmonitor pain Mixed hyperlipidemia 267 721227 E78.2 simvastati n 20 mg qdmonitor labs Essential hypertension 60667055 I10 metoprolol tartrate 25 mg bidlasix 20 mg qdklor con 20 meq qdmonitor b/p and labs Atrial fibrillation 4943 6004 I48.19 metoprolol tartrate 25 mg bidcoumadi n therapymon itor INRs History of cerebrovascular accident 176433118 Z86.73 metoprolol tartrate 25 mg bidcoumadi n therapyato rvastatin 20 mg qdmonitor Recurrent falls 88213449 2 R29.6 PT/OT eval and treatmonit or for safety Pressure ulcer 442728091 L89.90 multivitam in with mineralsvi tamin C 500 mg qdwound care as orderedmon itor frequently use pressure relief devices Deep venou s thrombosis of upper extremity 099480123 I82.621 coumadin therapymon itor INRs Multinodular goiter 2375 94418 E04.2 noted in historymon itor Hypomagnesemia 694431366 E83.42 magnesium 400 mg qdmonitor labs [id number] STACY SULLIVAN [facility] [address] [address] 05/08/2021 10:39:43 05/11/2021 08:35:04 Infective endocarditis 324334731 I33.0 nafcillin 2 gm IV q 4 hrs with stop date of 05/22/21pro biotic bidPICC line monitoring monitor labs Atrial fibrillation 4943 6004 I48.19 metoprolol tartrate 25 mg bidcoumadi n therapymon itor INRs Essential hypertension 44054698 I10 metoprolol tartrate 25 mg bidlasix 20 mg qdklor con 20 meq qdmonitor b/p and labs [id number] Feliz Gonzalez MD [facility] [address] [address] 05/10/2021 12:53:56 05/17/2021 15:11:21 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 see HPI and above Infective endocarditis 308974141 I33.0 see HPIcontinu ed on nafcillin 2 gm q 4 hours through 05/22add probioticm onitor cbcupdate ID with concerns Pressure ulcer 325340316 L89.90 see wound care notesconti nue treatment Deep venou s thrombosis of upper extremity 387704401 I82.621 RUE DVTlovenox now bridged to coumadinmo nitor INR and titrate dose Osteoarthritis 531875659 M15.0 known at baselinemo nitor for sx controltit rate meds prn Mixed hyperlipidemia 267 609621 E78.2 simvastati n 20 mg qdcontinue d Essential hypertension 75347115 I10 metoprolol 25 mg bidlasix 20 mg qdmonitor bp and need to titrate meds Atrial fibrillation 4943 6004 I48.19 carrying dxmetoprol ol 25 mg bidtitrate coumadin dosemonito r for rate control Recurrent falls 07680030 2 R29.6 PT OT eval and treatmonit or fall risk Asthenia 57937764 R53.1 highly motivated to gain strength and return home [id number] STACY JOHN [facility] [address] [address] 05/11/2021 11:11:13 05/17/2021 15:26:07 Asthenia 78124545 R53.1 pt with fall this amfell from bed to floorno apparent injuriessa fety precaution sPT/OT eval and tx [id number] Feliz Gonzalez MD [facility] [address] [address] 05/17/2021 15:20:07 05/19/2021 15:47:47 Infective endocarditis 028770626 I33.0 nafcillin 2 gm q 4 hours through 05/22 to complete coursemoni tor cbcupdate ID with concernsgo al is discharge on 05/23 Bacterial arthritis 4824 5008 M00.88 see HPI and above Deep venou s thrombosis of upper extremity 196004165 I82.621 RUE DVTmonitor INR and titrate dose Asthenia 90071303 R53.1 improving with therapymov ing towards discharge [id number] HERMINIA DENSON NP [facility] [address] [address] 05/18/2021 14:18:12 05/22/2021 14:35:55 Infective endocarditis 126032448 I33.0 nafcillin 2 gm q 4 hours through 05/22 to complete coursemoni tor cbc - stableupda te ID with concernsgo al is discharge on 05/23Nsg. working on appt. for IV line removal Bacterial arthritis 4824 5008 M00.88 see HPI and above Deep venou s thrombosis of upper extremity 243983292 I82.621 RUE DVTmonitor INR and titrate dose Asthenia 19466494 R53.1 improving with therapymov ing towards discharge Atrial fibrillation 4943 6004 I48.19 [id number] STACY Weber [facility] [address] [address] 05/23/2021 11:10:46 05/25/2021 11:25:14 Infective endocarditis 758522224 I33.0 ok to dc home with meds and VNA services todayfinis hed nafcillin 2 gm q 4 hours through 05/22pt will not need to have central line flushed daily as [facility]. this [facility] by [facility] radiology department where he is having it removedf/u cardiologi st on 05/31f/u with pcp as out pt Bacterial arthritis 4824 5008 M00.88 as above Pressure ulcer 230999705 L89.90 will be followed by [facility] Deep venou s thrombosis of upper extremity 505038900 I82.621 RUE DVTcoumadi n therapeuti cwill have [facility] draw next PT/INR when he is admitted to their service with results sent to PCP Mixed hyperlipidemia 267 364447 E78.2 atorvastat in 20 mg qdf/u pcp Essential hypertension 64646253 I10 metoprolol 25 mg bidlasix 20 mg [...] Flores Member ID Guarantor Name 05/23/2021 1 [facility] - MEDICARE PREFERRED (MEDICARE REPLACEMENT HMO) [facility] Vladimir Flynn [id number] Vladimir Flynn 10/24/2018 2 MEDIC[place] B-[place]: [employer] Vladimir Flynn [id number] Vladimir Flynn Notes Date Note Type Note [...] and therapy Feliz Gonzalez MD [address] [facility], [address], [place], [address], [facility] 05/10/2021 13:19:34 05/11/2021 text/html Pt being seen [...] daily and recheck INR Saturday. Rosenda ferro [facility] Symptom.ly [facility] 05/11/2021 12:15:08 05/17/2021 text/html Patient is a 81 yo male resident seen for acute rounding. Completing Ab for endocarditis with potential discharge date of 05/23. Patient on coumadin for a fib with dose adjusted today. Strength and conditioning improving with therapy Feliz Gonzalez MD [address] [facility], [address], [place], [address], [facility] 05/17/2021 15:26:05 05/18/2021 text/html Vladimir is seen today for an acute visit.Alert, pleasant, NAD. Uvaldo. abx. tx. well, goal home next . when IV abx. completed.Feels well, no c/o.Working with rehab - good progress. HERMINIA DENSON NP [address] [facility], [address], [place], [address], [facility] 05/18/2021 15:00:40 05/23/2021 text/html pt seen today for discharge summary. Patient presented to [facility] er from [place] (where he had been sent after 2 days in [facility] for rehab) with fever, hypotension [...] are resolving. was sent from there to [facility] for acute rehab. He had episodes of [...] concerns per nursing. STACY Weber [address] [facility], [address], [place], [address], [facility] 05/23/2021 12:09:56
== END 2025-07-26 11:47 | disposition home or self-care (01) ==
LOC: HO.HSM 11:34
PROVIDERS: PCP Internal Medicine; Visit Provider Psychiatry & Neurology Neurology
DX: G62.9 Polyneuropathy, unspecified (principal); R26.89 Other abnormalities of gait and mobility
CPT/HCPCS: 99214

== ENCOUNTER → 2025-07-26 11:33 | Outpatient (BNVA) | payer MEDICARE, SELFPAY | PROVIDERS: PCP Internal Medicine; Visit Provider Psychiatry & Neurology Neurology | DX: Z71.2 Person consulting for explanation of examination or test findings (principal); G62.9 Polyneuropathy, unspecified; R26.89 Other abnormalities of gait and mobility | CPT/HCPCS: 99212 ==

== ENCOUNTER 2025-08-03 09:55 | Outpatient (AMB) | payer MEDICARE, SELFPAY ==
[2025-08-03 10:02] LABS: Prothrombin Time Whole Bld POC 39.1 sec (11.1-13.5); ~PT, ~INR - Anti Coag Clinic 3.3 (0.9-1.1)
--- NOTE | 2025-08-03 10:04 | MHC.OFFVISCO ---
Intake Intake Visit Reasons: Anticoagulation Allergies clopidogrel (From PLAVIX) Allergy (Unknown, Verified 08/03/25 09:57) RASH Medication List - Last Reconciled 08/03/25 by Carolina Diaz, RN acetaminophen ER 650 mg PO Q12H PRN ascorbic acid (vitamin C) 500 mg PO DAILY atorvastatin 20 mg PO DAILY B-complex with vitamin C 1 tab PO DAILY calcium carb-mag ox-zinc sulf 1 tab PO DAILY coenzyme Q10 10 mg PO TID ferrous sulfate 325 mg PO DAILY furosemide 20 mg PO DAILY meclizine 12.5 mg orally once a day as needed for dizziness PRN; metoprolol succinate ER 25 mg PO DAILY omega 2-kjm-esj-fish oil 1,000 (120-180) mg (Fish Oil) 1 cap PO DAILY saw palmetto 500 mg PO BID vitamin E 400 units PO DAILY warfarin 2.5 mg PO DAILY Nursing Note INR: 3.3 out of therapeutic range of 2-3 Medications and supplements reviewed Patient status: well Medications or supplements: no changes Diet: usual diet for pt Denies any signs and symptoms of bleeding or clotting or unusual bruising Bleeding, bruising, clotting discussed Nutritional guidance given: to have a serving of greens today Dose: 2.5mg daily F/U INR Date: 08/31/25?? Patient verbalizing understanding of instructions given. Anti-Coag Initial Assessment Social Hx Patient Tobacco Use Status: Never used Tobacco alcohol intake: unknown Coding Level of Care Code Est Patient Level 1 Diagnoses Current use of anticoagulant therapy Z79.01 Assessment & Plan Assessment & Plan (1) Current use of anticoagulant therapy: Code(s): Z79.01 - correction (current) use of anticoagulants Category: Medical
--- OUTSIDE RECORDS SUMMARY | 2025-08-03 11:49 | XMS_ITS | Data Portability ---
Author Organization [facility] [employer] [facility], Main Office Address [address] [facility] [place] [address] Care Team Providers Care Shearer Operator Name Role Phone BARI AMIN - 2ND [...] By Organization Details Last Modified Time 05/23/2021 [id number] exam of pt, revi ew of chart, discussion with social work, interventional radiology 50 minutes [email or web address] Not available 05/23/2021 12:09:48 Reason for Referral None Reported. Problems Name Problem SNOMED Code Status Onset Date Resolution Date Notes Provider Name and Address Organization Details Recorded Time Osteoarthri tis of left knee joint 7674304949066 09 Active 2018 Feliz Gonzalez MD [address] [facility], [address], [place], [address], [facility] [employer] 9 15:05:21 Essential hypertensio n 83184086 Active 2018 Feliz Gonzalez MD [address] [facility], [address], [place], [address], [facility] [employer] 9 15:05:25 Mixed hyperlipide ezequiel 685201592 Active 2018 Feliz Gonzalez MD [address], [address], [place], [address], [facility] 9 15:05:33 Unsteady gait Active 2018 Feliz Gonzalez MD [address], [address], [place], [address], [facility] 9 15:05:38 Atrial fibrillatio n 97909506 Active 2018 STACY SULLIVAN [address], [address], [place], [address], [facility] 9 08:43:44 Infective endocarditi s 343475480 Active 2020 STACY SULLIVAN [address], [address], [place], [address], [facility] 1 08:27:08 Osteoarthri tis 417676299 Active 2020 STACY SULLIVAN [address], [address], [place], [address], [facility] 1 08:27:39 History of cerebrovasc ular accident 780309234 Active 2020 STACY SULLIVAN [address], [address], [place], [address], [facility] 1 08:28:06 Recurrent falls 693869156 Active 2020 STACY SULLIVAN [address], [address], [place], [address], [facility] 1 08:28:20 Pressure ulcer Active 2020 STACY SULLIVAN [address], [address], [place], [address], [facility] 1 08:30:05 Deep venous thrombosis of upper extremity 205013302 Active 2020 STACY SULLIVAN [address], [address], [place], [address], [facility] [employer] 08:30:52 Multinodula r goiter 808891063 Active 2020 KYREE SULLIVANP [address] [facility], [address], [place], [address], [facility] [employer] 08:32:27 Hypomagnese ezequiel 352158810 Active 2020 KYREE SULLIVANP [address] [facility], [address], [place], [address], [employer] [facility] 08:57:53 Asthenia 16569582 Active 2020 Rosenda bower [facility] [employer] 11:24:32 Problem Notes None recorded. Procedures Surgical History Date Name Laterality Status Provider Name and Address Organization Details Recorded Time percutaneous transluminal coronary angioplasty completed KYREE SULLIVANP [address] [place] [address], [address], [place], [address], [employer] [facility] 05/05/2021 08:29:08 Imaging Results None recorded. Procedure Notes None recorded. Medical Equipment None Reported. Allergies Allergen ID Allergen Name Allergen Category Reaction Reaction Severity Criticality Documentation Date Start Date Code Code System Note Provider Name and Address Organization Details Recorded Time 14386 Plavix medicatio n rash severe Not available 10/13/2018 94924 2 RxNorm STACY SULLIVAN [address] [facility], [address], [place], [address], [facility] 9 08:21:26 Medications Not known to be on any medication Vitals Date Recorded Systolic And Diastolic Provider Name and Address Organization Details Last Updated DateTime 05/10/2021 124/65 mm[Hg] Feliz Gonzalez MD [address] [facility], [address], [place], [address], [facility] 05/10/2021 12:55:10 Date Recorded Body temperature Heart rate Respiratory rate Oxygen saturation Systolic And Diastolic Provider Name and Address Organization Details Last Updated DateTime 97.2 [degF] 79 /min 18 /min 96 % 145/73 mm[Hg] Rosenda bower [employer] [facility] 1 11:13:36 Date Recorded Systolic And Diastolic Provider Name and Address Organization Details Last Updated DateTime 05/17/2021 104/74 mm[Hg] Feliz Gonzalez MD [address] [facility], [address], [place], [address], [facility] [facility] 05/17/2021 15:20:50 Date Recorded Heart rate Respiratory rate Body temperature Oxygen saturation Systolic And Diastolic Provider Name and Address Organization Details Last Updated DateTime 1 73 /min 18 /min 97.4 [degF] 93 % 129/89 mm[Hg] HERMINIA DENSON NP [address] [facility], [address], [place], [address], [facility] 1 14:20:11 Date Recorded Body temperature Oxygen saturation Heart rate Respiratory rate Systolic And Diastolic Provider Name and Address Organization Details Last Updated DateTime 1 96.6 [degF] 97 % 89 /min 18 /min 124/81 mm[Hg] STACY Weber [address] [facility], [address], [place], [address], [facility] 1 11:12:09 Social History Question Answer Notes LastModified by Organizat ion Details LastModified Time Tobacco Smoking Status Never Smoker Not Available [facility] 07/05/2020 03:13:23 Do You Have An Advance Directive? Yes FULL CODE/use Dialysis/unde cided About Nutrition/use Hydration Information not available 05/05/2021 What Is Your Code Status? Full Code Information not available 05/05/2021 Legal Guardian? No Information not available 05/05/2021 Do You Have A Medical Power Of Rn Med Surg? Yes HCP On File Information not available 05/05/2021 Has Tobacco Cessation Counseling Been Provided? No NA Information not available 05/05/2021 Sex: Unknown Functional Status Question Answer Note LastModified by Organizat ion Details LastModified Time Do you or have you ever used any other forms of tobacco or nicotine? No Information not available 05/05/2021 What is your level of alcohol consumption? Occasional [id number] Information not available 07/05/2020 Mental Status Question Answer Note LastModified by Organization D etails LastModified Time Do you feel stressed (tense, restless, nervous, or anxious, or unable to sleep at night)? [id number] ilya Information not available 05/05/2021 Family History Nothing Reported Notes:N/C Medical History No medical history recorded. Immunizations Vaccine Type Date Status Note Provider Nam e and Address Organization Details Recorded Time COVID-19, mRNA, LNP-S, PF, 100 mcg/0.5mL dose or 50 mcg/0.25mL dose 10/11/2020 completed STACY SULLIVAN [address] [facility] [facility] [address], [place], [address], [facility] [employer] 05/05/2021 11:09:25 COVID-19, mRNA, LNP-S, PF, 100 mcg/0.5mL dose or 50 mcg/0.25mL dose 11/08/2020 completed STACY SULLIVAN [address] [facility] [facility] [address], [place], [address], [employer] 05/05/2021 11:09:40 influenza, unspecified formulation 09/08/2018 [facility] 12/19/2018 15:12:21 Past Encounters Encounter ID Performer Location Encounter Start Date Encounter Closed Date Diagnosis/Indication Diagnosis SNOMED-CT Code Diagnosis ICD10 Code Diagnosis IMO Codes Diagnosis Note [id number] Feliz Gonzalez MD [address] [address] 10/10/2018 14:54:06 10/28/2018 16:15:02 Osteoarthritis of left knee joint 3024693847 03981 M17.12 end stage OA now s/p TKR leftfollow ortho recsPT OT eval and treatmonit or for pain control and constipati onmonitor and adjust coumadin for DVT prophylaxi sgiven sub-therap utic INR will add lovenox 40 mg sc qd till theraputic Essential hypertension 10659727 I10 metoprolol 25 mg qdmonitor bp Mixed hyperlipidemia 267 227015 E78.2 simvastati n 40 mg qdcontinue Unsteady gait 748394986 R26.81 PT OT eval and treat [id number] STACY SULLIVAN [facility] [address] [place] [address] 10/13/2018 08:02:37 10/28/2018 16:16:29 Osteoarthritis of left knee joint 2308063000 98522 M17.12 follow ortho recsmonito r and adjust coumadinlo venox 40 mg sc qd till theraputic follow up with ortho and PCP Essential hypertension 89519116 I10 metoprolol 25 mg qdfollow up with PCP Mixed hyperlipidemia 267 650991 E78.2 simvastati n 40 mg qdfollow up with PCP Unsteady gait 414263664 R26.81 follow up with PCP Atrial fibrillation 4943 6004 I48.2 coumadin therapymon itor INRscontin ue lovenox til over 2follow up with cardiology and PCP [id number] [facility] [address] [place] [address] 05/05/2021 08:21:13 05/10/2021 15:30:51 Infective endocarditis 627671754 I33.0 nafcillin 2 gm IV q 4 hrs with stop date of 05/22/21pro biotic bidPICC line monitoring monitor labs Osteoarthritis 546545893 M15.0 tylenol 650 mg q 4 hrs prnmonitor pain Mixed hyperlipidemia 267 750882 E78.2 simvastati n 20 mg qdmonitor labs Essential hypertension 88352735 I10 metoprolol tartrate 25 mg bidlasix 20 mg qdklor con 20 meq qdmonitor b/p and labs Atrial fibrillation 4943 6004 I48.19 metoprolol tartrate 25 mg bidcoumadi n therapymon itor INRs History of cerebrovascular accident 797556597 Z86.73 metoprolol tartrate 25 mg bidcoumadi n therapyato rvastatin 20 mg qdmonitor Recurrent falls 88329803 2 R29.6 PT/OT eval and treatmonit or for safety Pressure ulcer 909804902 L89.90 multivitam in with mineralsvi tamin C 500 mg qdwound care as orderedmon itor frequently use pressure relief devices Deep venou s thrombosis of upper extremity 153680608 I82.621 coumadin therapymon itor INRs Multinodular goiter 2375 74955 E04.2 noted in historymon itor Hypomagnesemia 691624040 E83.42 magnesium 400 mg qdmonitor labs [id number] ST[facility] SULLIVAN [facility] [address] [address] 05/08/2021 10:39:43 05/11/2021 08:35:04 Infective endocarditis 744345328 I33.0 nafcillin 2 gm IV q 4 hrs with stop date of 05/22/21pro biotic bidPICC line monitoring monitor labs Atrial fibrillation 4943 6004 I48.19 metoprolol tartrate 25 mg bidcoumadi n therapymon itor INRs Essential hypertension 17745223 I10 metoprolol tartrate 25 mg bidlasix 20 mg qdklor con 20 meq qdmonitor b/p and labs [id number] Feliz Gonzalez MD [facility] [address] [address] 05/10/2021 12:53:56 05/17/2021 15:11:21 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 see HPI and above Infective endocarditis 505854914 I33.0 see HPIcontinu ed on nafcillin 2 gm q 4 hours through 05/22add probioticm onitor cbcupdate ID with concerns Pressure ulcer 213791382 L89.90 see wound care notesconti nue treatment Deep venou s thrombosis of upper extremity 605112173 I82.621 RUE DVTlovenox now bridged to coumadinmo nitor INR and titrate dose Osteoarthritis 137340111 M15.0 known at baselinemo nitor for sx controltit rate meds prn Mixed hyperlipidemia 267 096005 E78.2 simvastati n 20 mg qdcontinue d Essential hypertension 90220761 I10 metoprolol 25 mg bidlasix 20 mg qdmonitor bp and need to titrate meds Atrial fibrillation 4943 6004 I48.19 carrying dxmetoprol ol 25 mg bidtitrate coumadin dosemonito r for rate control Recurrent falls 04632765 2 R29.6 PT OT eval and treatmonit or fall risk Asthenia 83605736 R53.1 highly motivated to gain strength and return home [id number] STACY JOHN [facility] [address] [address] 05/11/2021 11:11:13 05/17/2021 15:26:07 Asthenia 08708550 R53.1 pt with fall this amfell from bed to floorno apparent injuriessa fety precaution sPT/OT eval and tx [id number] Feliz Gonzalez MD [facility] [address] [address] 05/17/2021 15:20:07 05/19/2021 15:47:47 Infective endocarditis 276812600 I33.0 nafcillin 2 gm q 4 hours through 05/22 to complete coursemoni tor cbcupdate ID with concernsgo al is discharge on 05/23 Bacterial arthritis 4824 5008 M00.88 see HPI and above Deep venou s thrombosis of upper extremity 318077512 I82.621 RUE DVTmonitor INR and titrate dose Asthenia 78754229 R53.1 improving with therapymov ing towards discharge [id number] HERMINIA DENSON NP [facility] [address] [address] 05/18/2021 14:18:12 05/22/2021 14:35:55 Infective endocarditis 795575762 I33.0 nafcillin 2 gm q 4 hours through 05/22 to complete coursemoni tor cbc - stableupda te ID with concernsgo al is discharge on 05/23Nsg. working on appt. for IV line removal Bacterial arthritis 4824 5008 M00.88 see HPI and above Deep venou s thrombosis of upper extremity 676826491 I82.621 RUE DVTmonitor INR and titrate dose Asthenia 58866692 R53.1 improving with therapymov ing towards discharge Atrial fibrillation 4943 6004 I48.19 [id number] STACY Weber [facility] [address] [address] 05/23/2021 11:10:46 05/25/2021 11:25:14 Infective endocarditis 698779381 I33.0 ok to dc home with meds and VNA services todayfinis hed nafcillin 2 gm q 4 hours through 05/22pt will not need to have central line flushed daily as he will be having it removed by interventi onal radiology on 05/26. this was confirmed by the [facility] onal radiology department where he is having it removedf/u cardiologi st on 05/31f/u with pcp as out pt Bacterial arthritis 4824 5008 M00.88 as above Pressure ulcer 828959163 L89.90 will be followed by [facility] Deep venou s thrombosis of upper extremity 108696967 I82.621 RUE DVTcoumadi n therapeuti cwill have [facility] draw next PT/INR when he is admitted to their service with results sent to PCP Mixed hyperlipidemia 267 126973 E78.2 atorvastat in 20 mg qdf/u pcp Essential hypertension 81060691 I10 metoprolol 25 mg bidlasix 20 mg [...] Flores Member ID Guarantor Name 05/23/2021 1 [facility] - MEDICARE PREFERRED (MEDICARE REPLACEMENT HMO) HAM Vladimir Flynn [id number] Vladimir Flynn 10/24/2018 2 MEDICARE [place]: [facility] Vladimir Flynn [id number] Vladimir Flynn Notes Date Note Type Note [...] and therapy Feliz Gonzalez MD [address] [facility], [address], [place], [address], [facility] [employer] 05/10/2021 13:19:34 05/11/2021 text/html Pt being seen [...] recheck INR Saturday. Rosenda ferro, [facility] [facility] 05/11/2021 12:15:08 05/17/2021 text/html Patient is a 81 yo male resident seen for acute rounding. Completing Ab for endocarditis with potential discharge date of 05/23. Patient on coumadin for a fib with dose adjusted today. Strength and conditioning improving with therapy Feliz Gonzalez MD [address] [facility], [address], [place], [address], [facility] [employer] 05/17/2021 15:26:05 05/18/2021 text/html Vladimir is seen today for an acute visit.Alert, pleasant, NAD. Uvaldo. abx. tx. well, goal home next . when IV abx. completed.Feels well, no c/o.Working with rehab - good progress. HERMINIA DENSON NP [address] [facility], [address], [place], [address], [facility] [employer] 05/18/2021 15:00:40 05/23/2021 text/html pt seen today for discharge summary. Patient presented to [facility] from [place] (where he had been sent after 2 days in [facility] for rehab) with fever, hypotension and [...] are resolving. [facility]. He had episodes [...] concerns per nursing. STACY Weber [address] [facility], [address], [place], [address], [facility] 05/23/2021 12:09:56
--- OUTSIDE RECORDS SUMMARY | 2025-08-03 11:49 | XMS_ITS | Patient Health Record ---
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, bilateral legs (I70.203) Diagnosis [...] Referring Provider Last Name Jer Referred Organization [facility]al Referred Provider Anuradha Hermosillo Referred Address [address] [facility],[place], [place],[address], Referred Provider Specialty Podiatry Referral Priority Routine [...] atherosclerosis of arteries of lower limbs (disorder) ([id number] ) 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, bilateral legs (I70.203) Active confirmed Vital Signs Blood pressure diastolic 75 mm Hg 05/07/2025 Height 6 ft 3 in in 05/07/2025 Blood pressure systolic 115 mm Hg 05/07/2025 Weight 217 lbs 05/07/2025 BMI 27.12 kg/m2 05/07/2025 Encounters Encounter Location Date Provider Diagnosis [address] [address] 08/21/2024 Anuradha Hermosillo Tinea unguium B35.1 ; 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, bilateral legs I70.203 ; Pain in right toe(s) M79.674 ; Pain in left toe(s) M79.675 ; Other hammer toe(s) (acquired), left foot M20.42 ; Other hammer toe(s) (acquired), right foot M20.41 ; Venous insufficiency I87.2 and Ischemic ulcer of left foot, limited to breakdown of skin L97.[address] [address] 10/20/2024 Anuradha Hermosillo Ischemic ulcer of le ft heel, limited to breakdown of skin L97.421 ; Xerosis of skin L85.3 ; 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, bilateral legs I70.203 ; Other hammer toe(s) (acquired), left foot M20.42 ; Other hammer toe(s) (acquired), right foot M20.41 and Ischemic ulcer of right heel, limited to breakdown of skin L97.[address] [address] 11/20/2024 Anuradha Hermosillo Ischemic ulcer of le ft heel, limited to breakdown of skin L97.421 ; Xerosis of skin L85.3 ; 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, bilateral legs I70.203 ; Other hammer toe(s) (acquired), left foot M20.42 and Other hammer toe(s) (acquired), right foot M20.[address] [address] 12/22/2024 Anuradha Hermosillo 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, bilateral legs I70.203 ; Xerosis of skin L85.3 ; Tinea unguium B35.1 ; Pain in right toe(s) M79.674 ; Pain in left toe(s) M79.675 ; Other hammer toe(s) (acquired), left foot M20.42 ; Other hammer toe(s) (acquired), right foot M20.41 and Venous insufficiency I87.[address] [address] 02/23/2025 Anuradha Hermosillo 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, bilateral legs (ICD-10 - I70.203) 08/21/2024 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, bilateral legs (ICD-10 - I70.203) 10/20/2024 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, bilateral legs (ICD-10 - [...] X ray : Foot, left 2V 09/14/2015 96234-CFMVBWB NAIL, 6 OR MORE 11/16/2015 60851-YMMBQCK NAIL, 6 OR MORE 05/16/2016 33254-GXSFDPB NAIL, 6 OR MORE 08/23/2016 66819-PSUUAQE NAIL, 6 OR MORE 12/05/2016 67592-AVQXHIG NAIL, 6 OR MORE 03/06/2017 34049-MIYMFMA NAIL, 6 OR MORE 07/03/2017 12569-TQCGFGD NAIL, 6 OR MORE 03/10/2015 61142-YXYMJIB NAIL, 6 OR MORE 06/13/2015 82918-GJJWEKR NAIL, 6 OR MORE 10/01/2013 00146-OQNHKHW NAIL, 6 OR MORE 01/13/2015 19637-NALBGDJ NAIL, 6 OR MORE 06/30/2018 75038-BFHBGZZ NAIL, 6 OR MORE 11/04/2017 97133-CGLTFYX NAIL, 6 OR MORE 03/05/2018 83651-Trmy Destruction, 1-14 01/27/2015 21692-Bmed Destruction, 1-14 01/13/2015 05133-Imzt Destruction, 1-14 03/10/2015 16713-Ynef Destruction, 1-14 06/13/2015 88029-Owvrslye Plate 06/13/2015 57768-Liwnekoc Plate 03/10/2015 85835-Qcavyerh Plate 06/30/2018 37128- Debride <25 sq cm 03/10/2015 17104- Debride <25 sq cm 01/27/2015 98006- Debride <25 sq cm 08/24/2015 54205- Debride <25 sq cm 09/05/2015 04012- Debride <25 sq cm 09/14/2015 74475-TQQRWOY SKIN/TISSUE 01/13/2015 29665-XEQHHWG SKIN/TISSUE 07/20/2015 41951-PFHNHFW SKIN/TISSUE 06/27/2015 43264-RDXRIIK SKIN/TISSUE 07/04/2015 92879-ZNDKXVM SKIN/TISSUE 10/17/2022 01129-NCKU SKIN LESIONS, OVER 4 11/15/19 21 83076-PCVK SKIN LESIONS, OVER 4 03/16/20 21 20804-RQXB SKIN LESIONS, OVER 4 10/17/19 49914-ASVB SKIN LESIONS, 2 TO 4 06/30/20 18 69013-LSKN SKIN LESIONS, 2 TO 4 03/05/20 18 74865-XKMW SKIN LESIONS, 2 TO 4 11/25/19 87910-OTWC SKIN LESIONS, 2 TO 4 03/30/20 10751-OMHM SKIN LESIONS, 2 TO 4 07/20/20 02480-QYFP SKIN LESIONS, 2 TO 4 11/18/19 64355-IHUB SKIN LESIONS, 2 TO 4 03/21/20 20 89067-KFBG SKIN LESIONS, 2 TO 4 07/20/20 20 40847-UWRF SKIN LESIONS, 2 TO 4 02/28/20 23 36183-CUHN SKIN LESIONS, 2 TO 4 05/16/20 16 61768-FSPR SKIN LESIONS, 2 TO 4 11/16/19 16 27288-JPGN SKIN LESIONS, 2 TO 4 11/04/19 18 11658-QNND SKIN LESIONS, 2 TO 4 07/03/20 17 94796-REBH SKIN LESIONS, 2 TO 4 12/06/19 17 73451-WZLN SKIN LESIONS, 2 TO 4 03/06/20 17 68762-IDHT SKIN LESIONS, 2 TO 4 08/23/20 16 75561-JSUJROOM OF HEMATOMA/FLUID 023 Next Appt Details Provider Name:Anuradha amado, 08/10/2025 11:00:00 AM, [address] [place], [address], Insurance Providers Payer Name Payer Address Payer Phone Subscriber Number Group Number Insured Name Patient Relationship to Insured Coverage Start Date Coverage End Date [facility] Care Options [address] [place] [phone] [id number] Vladimir Flynn Self - patient is the [...] center left eye cataract surger y [place] [facility] [place] out for two seconds, lab work was done everything came out fine. 04/2016
--- OUTSIDE RECORDS SUMMARY | 2025-08-03 11:49 | XMS_ITS | Clinical Summary ---
Author Organization [facility] Address [address] [place] [address] Phone Care Team Providers Care Supervisor Green End Department Name Role Phone Kirk Randle MD Primary Care Provider [phone] Allergies Active Allergy Reactions Criticality Noted Date [...] every day. Do not change dietary habits. [facility] directs coumadin instructions 90 tablet 11 [...] on chronic anticoagulation with warfarin given elevated [id number] score. He denies any bleeding or excessive [...] (coronary artery disease) 05/14/2018 Overview (04/19/2025): Old [place]; Stress test -ve 2010, treated in [facility] in 2004, stents put in. Assessment & [...] Plan: Patient continues to follow closely with [facility] vascular surgery. Assessment & Plan (04/19/2025 [...] - 07/14/2025 11:59 PM EST Hospital Encounter [facility] Ultrasound [address] [place] [address] Peripheral vascular disease, unspecified (CMS/[facility] V24) Discharge Disposition: Home or Self Care from Last 3 Months Immunizations Immunization Administration [...] PROCEDURE: HISTORICAL CARDIAC CATH KNEE ARTHROSCOPY PROCEDURE: SD ARTHROSCOPY AID TX SPINE&/FX KNEE W/O FIXJ OTHER SURGICAL HISTORY 05/19/2018 Right PROCEDURE: SD ENDOVEN ABLTJ INCMPTNT VEIN XTR LASER 1ST VEIN TOTAL KNEE ARTHROPLASTY 10/07/2018 Right PROCEDURE: HISTORICAL TOTAL KNEE REPLACE; COMMENT: [facility] - Dr. Cazares EYE SURGERY Bilateral PROCEDURE: HISTORICAL EYE SURGERY; COMMENT: cataracts BYPASS GRAFT 08/16/2022 Right PROCEDURE: SD AMPUTATION TOE METATARSOPHALANGEAL JOINT; COMMENT: R 5th toe OTHER SURGICAL HISTORY 08/16/2022 Right PROCEDURE: SD INCISION BONE CORTEX FOOT; COMMENT: R 5th metatarsal OTHER SURGICAL HISTORY 10/23/2022 PROCEDURE: SD SLCTV CATHJ 3RD+ ORD SLCTV ABDL PEL/LXTR BRNCH OTHER SURGICAL HISTORY 10/23/2022 PROCEDURE: X-RAY EXAM OF ARM/LEG ARTERY OTHER SURGICAL HISTORY 10/23/2022 PROCEDURE: ULTRASOUND GUIDANCE FOR VASCULAR AC OTHER SURGICAL HISTORY 07/09/2023 PROCEDURE: SD REVSC OPN/PRQ TIB/RON W/ANGIOPLASTY UNI OTHER SURGICAL HISTORY 07/09/2023 PROCEDURE: ULTRASOUND GUIDANCE FOR VASCULAR AC Medical History Medical History Date Comments Atrial fibrillation (CMS/HCC V24, CMS/HCC V28) DX:Atrial fibrillation (HCC) Coronary artery disease DX:Coron randy artery disease; COMMENT: Old [place]; Stress test -ve 2010, treated in [facility] in 2003, stents put in. [...] PM EST Office Visit Vascular Surgery - [place] [address] [place] [address] Emerald Macario MD [address] [place] [phone] 09/14/2025 11:00 AM EST Office Visit Internal Medicine - [place] [address] [facility] [address] [place] [phone] Kirk Randle MD [address] [facility] [address] [place] [address] Health Maintenance Due Date Last Done Comments [...] Procedure Name Priority Date/Time Associated Diagnosis Comments VAS US DUPLEX LOWER EXT ARTERIES BILAT WITH ASHA Routine 07/14/2025 2:02 PM EST Peripheral vascular disease, unspecified (CMS/HCC V24) COMPREHENSIVE METABOLIC PANEL Routine 09/30/2024 10:13 AM EST Cardiomyopathy, unspecified type (CMS/HCC V24, CMS/HCC V28) Primary hypertension Hypercholesterolemi a LIPID PANEL WITH REFLEX TO DIRECT LDL Routine 09/30/2024 10:13 AM EST Cardiomyopathy, unspecified type (CMS/HCC V24, CMS/HCC V28) Primary hypertension Hypercholesterolemi a from Last 3 Months or Most Recently Relevant to Health Maintenance Results * Vascular US duplex lower extremity arteries bilateral with ASHA (07/14/2025 2:02 PM EST) Anatomical Region Laterality Modality Vascular, Abdomen Ultrasound 07/26/2025 3:21 PM EST Impressions 07/26/2025 3:26 PM EST Abnormal Doppler waveforms as well as right-sided ASHA and bilateral digital indices. Right leg: Mild diffuse atherosclerotic changes without significant stenosis or occlusion. Left leg: Mild diffuse atherosclerotic changes without significant stenosis or occlusion. -------- FINAL REPORT -------- Dictated By: Chrissy Spicer Dictated Date: 07/26/2025 15:21 ET Assigned Physician: Chrissy Spicer Reviewed and Electronically Signed By: Chrissy Spicer Signed Date: 07/26/2025 15:26 ET Workstation ID: [id number] Transcribed By: Self Edit Transcribed Date: 07/26/2025 15:21 ET Narrative 07/26/2025 3:26 PM EST INDICATION: Peripheral arterial disease TECHNIQUE: Bilateral ankle to brachial indices obtained. Arterial duplex imaging obtained of both lower extremities. Prior relevant imaging studies: October 23, 2022 right lower extremity arterial duplex scan. Right posterior tibial index 0.82 Right dorsalis pedis index is noncompressible Right digital index 0.54 Left posterior tibial index 0.95 Left dorsalis pedis index 1.14 Left digital index toes 0.41 Abnormal bilateral Doppler waveforms with normal pulse volume recordings. Right leg: Common femoral artery: Normal velocities and waveform. Superficial femoral artery: Normal velocities and waveform. Popliteal artery: Normal velocities and waveform. Posterior tibial artery: Normal velocities and waveform. Anterior tibial artery: Normal velocities and waveform. Left leg: Common femoral artery: Normal velocities and waveform. Superficial femoral artery: Normal velocities and waveform. Popliteal artery: Normal velocities and waveform.. Posterior tibial artery: Normal velocities and waveform. Anterior tibial artery: Normal velocities and waveform. Procedure Note Chrissy Spicer MD - 07/26/2025 INDICATION: Peripheral arterial disease TECHNIQUE: Bilateral ankle to brachial indices obtained. Arterial dupleximaging obtained of both lower extremities. Prior relevant imaging studies: October 23, 2022 right lower extremityarterial duplex scan. Right posterior tibial index 0.82 Right dorsalis pedis index is noncompressible Right digital index 0.54 Left posterior tibial index 0.95 Left dorsalis pedis index 1.14 Left digital index toes 0.41 Abnormal bilateral Doppler waveforms with normal pulse volumerecordings. Right leg: Common femoral artery: Normal velocities and waveform. Superficial femoral artery: Normal velocities and waveform. Popliteal artery: Normal velocities and waveform. Posterior tibial artery: Normal velocities and waveform. Anterior tibial artery: Normal velocities and waveform. Left leg: Common femoral artery: Normal velocities and waveform. Superficial femoral artery: Normal velocities and waveform. Popliteal artery: Normal velocities and waveform.. Posterior tibial artery: Normal velocities and waveform. Anterior tibial artery: Normal velocities and waveform. IMPRESSION: Abnormal Doppler waveforms as well as right-sided ASHA and bilateraldigital indices. Right leg: Mild diffuse atherosclerotic changes without significantstenosis or occlusion. Left leg: Mild diffuse atherosclerotic changes without significantstenosis or occlusion. -------- FINAL REPORT -------- Dictated By: Chrissy Spicer Dictated Date: 07/26/2025 15:21 ET Assigned Physician: Chrissy Spicer Reviewed and Electronically Signed By: Chrissy Spicer Signed Date: 07/26/2025 15:26 ET Workstation ID: [id number] Transcribed By: Self Edit Transcribed Date: 07/26/2025 15:21 ET us Emerald Macario MD CV VASCULAR PROCEDURES Fi nal Result * Lipid panel with reflex to direct LDL (09/30/2024 10:13 AM EST) Cholesterol 117 0 - 200 mg/dL LAB CHEMISTRY METHOD 09/30/2024 1:14 PM [facility] Triglycerides 77 0 - 150 mg/dL LAB CHEMISTRY METHOD 09/30/2024 1:14 PM EST [facility] HDL 48 >=40 mg/dL LAB CHEMISTRY METHOD 09/30/2024 1:14 PM [facility] LDL Calculated 54 0 - 100 mg/dL LAB CHEMISTRY METHOD 09/30/2024 1:14 PM [facility] VLDL Cholesterol Ric 15.4 mg/dL LAB CHEMISTRY METHOD 09/30/2024 1:14 PM [facility] Non HDL Chol. (LDL+VLDL) 69 <145 mg/dL LAB CHEMISTRY METHOD 09/30/2024 1:14 PM [facility] Chol/HDL Ratio 2.4 0.0 - 4.4 LAB CHEMISTRY METHOD 09/30/2024 1:14 PM [facility] Blood Venous blood specimen / Unknown Venipuncture / Unknown 09/30/2024 10:13 AM EST 09/30/2024 11:01 AM EST us Kirk Randle MD LAB BLOOD ORDERABLES Final Resul t [facility] [address] [place] [address], [place] [phone] * (ABNORMAL) Comprehensive metabolic panel (09/30/2024 10:13 AM EST) Sodium 140 133 - 145 mmol/L LAB CHEMISTRY METHOD 09/30/2024 1:14 PM [facility] Potassium 4.2 3.5 - 5.5 mmol/L LAB CHEMISTRY METHOD 09/30/2024 1:14 PM [facility] Chloride 106 96 - 110 mmol/L LAB CHEMISTRY METHOD 09/30/2024 1:14 PM [facility] CO2 27 21 - 32 mmol/L LAB CHEMISTRY METHOD 09/30/2024 1:14 PM [facility] Anion Gap 7 3 - 11 LAB CHEMISTRY METHOD 09/30/2024 1:14 PM [facility] Glucose 92 70 - 100 mg/dL LAB CHEMISTRY METHOD 09/30/2024 1:14 PM [facility] BUN 27(H) 5 - 25 mg/dL LAB CHEMISTRY METHOD 09/30/2024 1:14 PM [facility] Creatinine 1.23 0.70 - 1.30 mg/dL LAB CHEMISTRY METHOD 09/30/2024 1:14 PM [facility] eGFR 59(L) >=60 mL/min/1. 73m2 LAB CHEMISTRY METHOD 09/30/2024 1:14 PM [facility] Comment:Calculation based on the Chronic Kidney Disease Epidemiology Collaboration (CKD-EPI) equation refit without adjustment for race. BUN/Creatinine Ratio 22.0 LAB CHEMISTRY METHOD 09/30/2024 1:14 PM [facility] Calcium 9.9 8.5 - 10.5 mg/dL LAB CHEMISTRY METHOD 09/30/2024 1:14 PM [facility] AST (SGOT) 42 10 - 42 unit/L LAB CHEMISTRY METHOD 09/30/2024 1:14 PM [facility] ALT (SGPT) 35 10 - 60 unit/L LAB CHEMISTRY METHOD 09/30/2024 1:14 PM [facility] Alkaline Phosphatase 97 42 - 121 unit/L LAB CHEMISTRY METHOD 09/30/2024 1:14 PM [facility] Total Protein 7.1 6.0 - 8.0 g/dL LAB CHEMISTRY METHOD 09/30/2024 1:14 PM [facility] Albumin 4.0 3.2 - 5.0 g/dL LAB CHEMISTRY METHOD 09/30/2024 1:14 PM [facility] Total Bilirubin 1.2 0.0 - 1.4 mg/dL LAB CHEMISTRY METHOD 09/30/2024 1:14 PM [facility] Blood Venous blood specimen / Unknown Venipuncture / Unknown 09/30/2024 10:13 AM EST 09/30/2024 11:01 AM EST us Kirk Randle MD LAB BLOOD ORDERABLES Final Resul t [facility] [address] [place] [address], from Last 3 Months or Most Recently Relevant to Health Maintenance Insurance [employer] Advance Directives Documents on File Type Date Recorded Patient Cray Fishing Hand Expl anation Health Care Decision (hx) 07/09/2023 [...] DIRECTIVE Health Care Decision (hx) 05/13/2021 AD RCAFT DIRECTIVE Health Care Decision (hx) 05/13/2021 AD [...] (hx) 03/28/2021 AD CRAFT DIRECTIVE Care Teams Supervisor Green End Department Relationship Specialty Start Date End Date Kirk Randle MD [address] [place] [address] PCP - General Internal Medicine 07/12/20
== END 2025-08-03 10:09 | disposition home or self-care (01) ==
LOC: HO.ACS 09:55
PROVIDERS: PCP Internal Medicine; Visit Provider Internal Medicine Medical Oncology
DX: Z79.01 Long term (current) use of anticoagulants (principal)

== ENCOUNTER → 2025-08-03 09:55 | Outpatient (BNVA) | payer MEDICARE, SELFPAY | PROVIDERS: PCP Internal Medicine; Visit Provider Internal Medicine Medical Oncology | DX: I48.91 Unspecified atrial fibrillation (principal); Z51.81 Encounter for therapeutic drug level monitoring; Z79.01 Long term (current) use of anticoagulants | CPT/HCPCS: 85610; 99211 ==

== ENCOUNTER 2025-09-03 13:03 | Outpatient (AMB) | payer MEDICARE, SELFPAY ==
--- OUTSIDE RECORDS SUMMARY | 2025-08-10 06:00 | XMS_ITS ---
Author Organization [facility] Address [address] [place] [address] Care Team Providers Care Wireless Architect Name Role Phone Kirk Randle MD Primary Care Provider UnavailAnuradha Camp [phone] Encounters Encounter Location Date Provider Diagnosis [facility] [address] [place] [address] 08/10/2025 Anuradha Hermosillo Plan Of Treatment Next Appt Details Provider Name:Anuradha amado, 10/08/2025 01:00:00 PM, [address] [place], [address], Progress Notes * Vladimir FLYNNDOB:1940 (85 yo M)Acc No.[id number]:08/10/2025 Progress Note Patient: Zahra Vladimir KISER Provider: Nola Hermosillo DPM :1940 A ge:85 Y S ex:Male Date:08/10/2025 Address:[address] [place] [address], [phone] Pcp:Kirk Randle MD Subjective: * Chief Complaints: * * Medical History: Objective: * Vitals: Assessment: Plan: * Treatment: * Images: * The named appointment provid er may or may not be the originator of this progress note, and it is not deemed complete until electronically signed by the appointment provider. Sign off status: Pending * Provider: Nola Hermosillo DPM Date: 1 10/11/2024 Generated for Jaelyn de la cruz/Armond/Myron on: 11/04/2024 01:07 PM EST
--- OUTSIDE RECORDS SUMMARY | 2025-09-03 13:07 | XMS_ITS | Data Portability ---
Author Organization [facility], Main Office Address [address], [address] [place] [address] Care Team Providers Care Area Representative Name Role Phone BARI AMIN - 2ND FLOOR OTHER Assessment Encounter Date Assessment Date Assessment LastModified by Organization Details LastModified Time 05/23/2021 05/23/202105/23 wbc 7.2, hgb 13.6, plt 262, na 142, k 3.7, creat 0.8, sed rate 24, crp 3.76 [id number] Not available 05/23/2021 12:08:48 Plan of Treatment [...] By Organization Details Last Modified Time 05/23/2021 [id number] exam of pt, revi ew of chart, discussion with social work, interventional radiology 50 minutes Not available 05/23/2021 12:09:48 Reason for Referral None Reported. Problems Name Problem SNOMED Code Status Onset Date Resolution Date Notes Provider Name and Address Organization Details Recorded Time Osteoarthri tis of left knee joint 9338262448533 09 Active 2018 Feliz Gonzalez MD [address] [facility], [address], [place], [address], [facility] [employer] 9 15:05:21 Essential hypertensio n 38465761 Active 2018 Feliz Gonzalez MD [address] [facility] [address], [address], [place], [address], [facility] [employer] 9 15:05:25 Mixed hyperlipide ezequiel 645355891 Active 2018 Feliz Gonzalez MD [address], [address], [place], [address], [facility] 9 15:05:33 Unsteady gait Active 2018 Feliz Gonzalez MD [address], [address], [place], [address], [facility] 9 15:05:38 Atrial fibrillatio n 45850167 Active 2018 STACY SULLIVAN [address], [address], [place], [address], [facility] 9 08:43:44 Infective endocarditi s 864527424 Active 2020 STACY SULLIVAN [address], [address], [place], [address], [facility] 1 08:27:08 Osteoarthri tis 558865071 Active 2020 STACY SULLIVAN [address], [address], [place], [address], [facility] 1 08:27:39 History of cerebrovasc ular accident 114183527 Active 2020 STACY SULLIVAN [address], [address], [place], [address], [facility] 1 08:28:06 Recurrent falls 006713865 Active 2020 STACY SULLIVAN [address], [address], [place], [address], [facility] 1 08:28:20 Pressure ulcer Active 2020 STACY SULLIVAN [address], [address], [place], [address], [facility] 1 08:30:05 Deep venous thrombosis of upper extremity 868501970 Active 2020 STACY SULLIVAN [address], [address], [place], [address], [facility] [employer] 08:30:52 Multinodula r goiter 054586270 Active 2020 KYREE SULLIVANP [address] [facility] [address], [address], [place], [address], [facility] [employer] 08:32:27 Hypomagnese ezequiel 133161376 Active 2020 KYREE SULLIVANP [address], [address], [place], [address], [employer] 08:57:53 Asthenia 83857894 Active 2020 Rosenda bower [facility] [employer] 11:24:32 Problem Notes None recorded. Procedures Surgical History Date Name Laterality Status Provider Name and Address Organization Details Recorded Time percutaneous transluminal coronary angioplasty completed KYREE SULLIVANP [address] [place] [address], [address], [place], [address], [employer] 05/05/2021 08:29:08 Imaging Results None recorded. Procedure Notes None recorded. Medical Equipment None Reported. Allergies Allergen ID Allergen Name Allergen Category Reaction Reaction Severity Criticality Documentation Date Start Date Code Code System Note Provider Name and Address Organization Details Recorded Time 72839 Plavix medicatio n rash severe Not available 10/13/2018 84009 2 RxNorm STACY SULLIVAN [address] [facility] [address], [address], [place], [address], [employer] 9 08:21:26 Medications Not known to be on any medication Vitals Date Recorded Systolic And Diastolic Provider Name and Address Organization Details Last Updated DateTime 05/10/2021 124/65 mm[Hg] Feliz Gonzalez MD [address] [facility] [facility] [facility], [address], [place], [address], [employer] 05/10/2021 12:55:10 Date Recorded Body temperature Heart rate Respiratory rate Oxygen saturation Systolic And Diastolic Provider Name and Address Organization Details Last Updated DateTime 97.2 [degF] 79 /min 18 /min 96 % 145/73 mm[Hg] Rosenda bower [employer] 1 11:13:36 Date Recorded Systolic And Diastolic Provider Name and Address Organization Details Last Updated DateTime 05/17/2021 104/74 mm[Hg] Feliz Gonzalez MD [address] [facility], [address], [place], [address], [facility] 05/17/2021 15:20:50 Date Recorded Heart rate Respiratory rate Body temperature Oxygen saturation Systolic And Diastolic Provider Name and Address Organization Details Last Updated DateTime 1 73 /min 18 /min 97.4 [degF] 93 % 129/89 mm[Hg] HERMINIA DENSON NP [address] [facility] [address], [address], [place], [address], [facility] 1 14:20:11 Date Recorded Body temperature Oxygen saturation Heart rate Respiratory rate Systolic And Diastolic Provider Name and Address Organization Details Last Updated DateTime 1 96.6 [degF] 97 % 89 /min 18 /min 124/81 mm[Hg] STACY Weber [address] [facility] [address], [address], [place], [address], [facility] 1 11:12:09 Social History Question Answer Notes LastModified by Organizat ion Details LastModified Time Tobacco Smoking Status Never Smoker Not Available [facility] 07/05/2020 03:13:23 Do You Have An Advance Directive? Yes FULL CODE/use Dialysis/unde cided About Nutrition/use Hydration Information not available 05/05/2021 What Is Your Code Status? Full Code Information not available 05/05/2021 Legal Guardian? No Information not available 05/05/2021 Do You Have A Medical Power Of Double Needle Operator Lockstitch? Yes HCP On File Information not available 05/05/2021 Has Tobacco Cessation Counseling Been Provided? No NA Information not available 05/05/2021 Sex: Unknown Functional Status Question Answer Note LastModified by Organizat ion Details LastModified Time Do you or have you ever used any other forms of tobacco or nicotine? No Information not available 05/05/2021 What is your level of alcohol consumption? Occasional [id number] Information not available 07/05/2020 Mental Status Question Answer Note LastModified by Organization D etails LastModified Time Do you feel stressed (tense, restless, nervous, or anxious, or unable to sleep at night)? [id number] ilya Information not available 05/05/2021 Family History Nothing Reported Notes:N/C Medical History No medical history recorded. Immunizations Vaccine Type Date Status Note Provider Nam e and Address Organization Details Recorded Time COVID-19, mRNA, LNP-S, PF, 100 mcg/0.5mL dose or 50 mcg/0.25mL dose 10/11/2020 completed STACY SULLIVAN [address] [facility] [address] [facility], [facility] [address], [place], [address], [facility] [employer] 05/05/2021 11:09:25 COVID-19, mRNA, LNP-S, PF, 100 mcg/0.5mL dose or 50 mcg/0.25mL dose 11/08/2020 completed STACY SULLIVAN [address] [facility] [address], [facility] [address], [place], [address], [email or web address] 05/05/2021 11:09:40 influenza, unspecified formulation 09/08/2018 [facility] 12/19/2018 15:12:21 Past Encounters Encounter ID Performer Location Encounter Start Date Encounter Closed Date Diagnosis/Indication Diagnosis SNOMED-CT Code Diagnosis ICD10 Code Diagnosis IMO Codes Diagnosis Note [id number] Feliz Gonzalez MD [address] [address] 10/10/2018 14:54:06 10/28/2018 16:15:02 Osteoarthritis of left knee joint 9158797406 87558 M17.12 end stage OA now s/p TKR leftfollow ortho recsPT OT eval and treatmonit or for pain control and constipati onmonitor and adjust coumadin for DVT prophylaxi sgiven sub-therap utic INR will add lovenox 40 mg sc qd till theraputic Essential hypertension 67568338 I10 metoprolol 25 mg qdmonitor bp Mixed hyperlipidemia 267 791467 E78.2 simvastati n 40 mg qdcontinue Unsteady gait 482609857 R26.81 PT OT eval and treat [id number] STACY SULLIVAN [facility] [address] [place] [address] 10/13/2018 08:02:37 10/28/2018 16:16:29 Osteoarthritis of left knee joint 4045139735 53147 M17.12 follow ortho recsmonito r and adjust coumadinlo venox 40 mg sc qd till theraputic follow up with ortho and PCP Essential hypertension 36819389 I10 metoprolol 25 mg qdfollow up with PCP Mixed hyperlipidemia 267 423870 E78.2 simvastati n 40 mg qdfollow up with PCP Unsteady gait 661090145 R26.81 follow up with PCP Atrial fibrillation 4943 6004 I48.2 coumadin therapymon itor INRscontin ue lovenox til over 2follow up with cardiology and PCP [id number] [facility]IVAN [facility] [address] [place] [address] 05/05/2021 08:21:13 05/10/2021 15:30:51 Infective endocarditis 360532699 I33.0 nafcillin 2 gm IV q 4 hrs with stop date of 05/22/21pro biotic bidPICC line monitoring monitor labs Osteoarthritis 030474938 M15.0 tylenol 650 mg q 4 hrs prnmonitor pain Mixed hyperlipidemia 267 153744 E78.2 simvastati n 20 mg qdmonitor labs Essential hypertension 12095099 I10 metoprolol tartrate 25 mg bidlasix 20 mg qdklor con 20 meq qdmonitor b/p and labs Atrial fibrillation 4943 6004 I48.19 metoprolol tartrate 25 mg bidcoumadi n therapymon itor INRs History of cerebrovascular accident 049760655 Z86.73 metoprolol tartrate 25 mg bidcoumadi n therapyato rvastatin 20 mg qdmonitor Recurrent falls 53365856 2 R29.6 PT/OT eval and treatmonit or for safety Pressure ulcer 971877805 L89.90 multivitam in with mineralsvi tamin C 500 mg qdwound care as orderedmon itor frequently use pressure relief devices Deep venou s thrombosis of upper extremity 587540547 I82.621 coumadin therapymon itor INRs Multinodular goiter 2375 35801 E04.2 noted in historymon itor Hypomagnesemia 934726098 E83.42 magnesium 400 mg qdmonitor labs [id number] STACY SULLIVAN [facility] [address] [address] 05/08/2021 10:39:43 05/11/2021 08:35:04 Infective endocarditis 890791205 I33.0 nafcillin 2 gm IV q 4 hrs with stop date of 05/22/21pro biotic bidPICC line monitoring monitor labs Atrial fibrillation 4943 6004 I48.19 metoprolol tartrate 25 mg bidcoumadi n therapymon itor INRs Essential hypertension 79266105 I10 metoprolol tartrate 25 mg bidlasix 20 mg qdklor con 20 meq qdmonitor b/p and labs [id number] Feliz Gonzalez MD [facility] [address] [address] 05/10/2021 12:53:56 05/17/2021 15:11:21 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 see HPI and above Infective endocarditis 742701036 I33.0 see HPIcontinu ed on nafcillin 2 gm q 4 hours through 05/22add probioticm onitor cbcupdate ID with concerns Pressure ulcer 823643402 L89.90 see wound care notesconti nue treatment Deep venou s thrombosis of upper extremity 283014795 I82.621 RUE DVTlovenox now bridged to coumadinmo nitor INR and titrate dose Osteoarthritis 283293621 M15.0 known at baselinemo nitor for sx controltit rate meds prn Mixed hyperlipidemia 267 184735 E78.2 simvastati n 20 mg qdcontinue d Essential hypertension 62314344 I10 metoprolol 25 mg bidlasix 20 mg qdmonitor bp and need to titrate meds Atrial fibrillation 4943 6004 I48.19 carrying dxmetoprol ol 25 mg bidtitrate coumadin dosemonito r for rate control Recurrent falls 27804831 2 R29.6 PT OT eval and treatmonit or fall risk Asthenia 37286845 R53.1 highly motivated to gain strength and return home [id number] STACY JOHN [facility] [address] [address] 05/11/2021 11:11:13 05/17/2021 15:26:07 Asthenia 65218112 R53.1 pt with fall this amfell from bed to floorno apparent injuriessa fety precaution sPT/OT eval and tx [id number] Feliz Gonzalez MD [facility] [address] [address] 05/17/2021 15:20:07 05/19/2021 15:47:47 Infective endocarditis 122747625 I33.0 nafcillin 2 gm q 4 hours through 05/22 to complete coursemoni tor cbcupdate ID with concernsgo al is discharge on 05/23 Bacterial arthritis 4824 5008 M00.88 see HPI and above Deep venou s thrombosis of upper extremity 839251292 I82.621 RUE DVTmonitor INR and titrate dose Asthenia 60981391 R53.1 improving with therapymov ing towards discharge [id number] HERMINIA DENSON NP [facility] [address] [address] 05/18/2021 14:18:12 05/22/2021 14:35:55 Infective endocarditis 543217029 I33.0 nafcillin 2 gm q 4 hours through 05/22 to complete coursemoni tor cbc - stableupda te ID with concernsgo al is discharge on 05/23Nsg. working on appt. for IV line removal Bacterial arthritis 4824 5008 M00.88 see HPI and above Deep venou s thrombosis of upper extremity 988490832 I82.621 RUE DVTmonitor INR and titrate dose Asthenia 54274252 R53.1 improving with therapymov ing towards discharge Atrial fibrillation 4943 6004 I48.19 [id number] STACY Weber [facility] [address] [address] 05/23/2021 11:10:46 05/25/2021 11:25:14 Infective endocarditis 714583949 I33.0 ok to dc home with meds and VNA services todayfinis hed nafcillin 2 gm q 4 hours through 05/22pt will not need to have central line flushed daily as he will be having it removed by interventi onal radiology on 05/26. this was confirmed by the [facility] onal radiology department where he is having it removedf/u cardiologi st on 05/31f/u with pcp as out pt Bacterial arthritis 4824 5008 M00.88 as above Pressure ulcer 327040602 L89.90 will be followed by VNA Deep venou s thrombosis of upper extremity 963942803 I82.621 RUE DVTcoumadi n therapeuti cwill have [facility]NA draw next PT/INR when he is admitted to their service with results sent to PCP Mixed hyperlipidemia 267 643713 E78.2 atorvastat in 20 mg qdf/u pcp Essential hypertension 66566361 I10 metoprolol 25 mg bidlasix 20 mg [...] Flores Member ID Guarantor Name 05/23/2021 1 [facility] - MEDICARE PREFERRED (MEDICARE REPLACEMENT HMO) HAM Vladimir Flynn [id number] Vladimir Flynn 10/24/2018 2 MEDICARE B-[place]: [facility] Vladimir Flynn [id number] Vladimir Flynn Notes Date Note Type Note [...] care and therapy Feliz Gonzalez MD [address] [facility] [facility], [address], [place], [address], [facility] [employer] 05/10/2021 13:19:34 05/11/2021 text/html Pt being seen [...] daily and recheck INR Saturday. Rosenda ferro, [facility] 05/11/2021 12:15:08 05/17/2021 text/html Patient is a 81 yo male resident seen for acute rounding. Completing Ab for endocarditis with potential discharge date of 05/23. Patient on coumadin for a fib with dose adjusted today. Strength and conditioning improving with therapy Feliz Gonzalez MD [address] [facility], [address], [place], [address], [facility] [employer] 05/17/2021 15:26:05 05/18/2021 text/html Vladimir is seen today for an acute visit.Alert, pleasant, NAD. Uvaldo. abx. tx. well, goal home next . when IV abx. completed.Feels well, no c/o.Working with rehab - good progress. HERMINIA DENSON NP [address] [facility] [address] [facility], [address], [place], [address], [facility] [employer] 05/18/2021 15:00:40 05/23/2021 text/html pt seen today for discharge summary. Patient presented to [facility] er from [place] (where he had been sent after 2 days in [facility] for rehab) with fever, hypotension [...] [facility]. He had episodes [...] no concerns per nursing. STACY Weber [address] [facility] [address], [address], [place], [address], [facility] 05/23/2021 12:09:56
--- OUTSIDE RECORDS SUMMARY | 2025-09-03 13:07 | XMS_ITS | Patient Health Record ---
Author Organization [facility] Address [address] [place] [address] Care Team Providers Care Die Cutter Diamond Name Role Phone Kirk Randle MD Primary Care Provider Unavailab Anuradha Hobbs Unavailable [phone] Allergies Allergen (clinical drug ingredient) Drug/Non Drug Allergy documented on EMR Reaction Allergy Type Onset Date Status clopidogrel Plavix rash Drug Allergy Activ e Reason For Referral Diagnosis 1 Tinea unguium (B35.1 ) Diagnosis 2 Other hammer toe(s) (acquired), left foot (M20.42) Diagnosis 3 Unspecified atherosc lerosis of [place] arteries of extremities, bilateral legs (I70.203) Diagnosis [...] Referring Provider Last Name Jer Referred Organization [facility] Jamal Referred Provider Anuradha Hermosillo Referred Address [address] [facility],[place], [place],[address], Referred Provider Specialty Podiatry Referral Priority Routine [...] atherosclerosis of arteries of lower limbs (disorder) (88161789087402730 ) Unspecified atherosclerosis of [place] arteries of extremities, bilateral legs (I70.203) Active confirmed Vital Signs Blood pressure diastolic 75 mm Hg 05/07/2025 Height 6 ft 3 in in 05/07/2025 Blood pressure systolic 115 mm Hg 05/07/2025 Weight 217 lbs 05/07/2025 BMI 27.12 kg/m2 05/07/2025 Encounters Encounter Location Date Provider Diagnosis [address] [address] 10/20/2024 Anuradha Hermosillo Ischemic ulcer of le ft heel, limited to breakdown of skin L97.421 ; Xerosis of skin L85.3 ; Unspecified atherosclerosis of [place] arteries of extremities, bilateral legs I70.203 ; Other hammer toe(s) (acquired), left foot M20.42 ; Other hammer toe(s) (acquired), right foot M20.41 and Ischemic ulcer of right heel, limited to breakdown of skin L97.[address] [address] 11/20/2024 Anuradha Hermosillo Ischemic ulcer of le ft heel, limited to breakdown of skin L97.421 ; Xerosis of skin L85.3 ; Unspecified atherosclerosis of [place] arteries of extremities, bilateral legs I70.203 ; Other hammer toe(s) (acquired), left foot M20.42 and Other hammer toe(s) (acquired), right foot M20.[address] [address] 12/22/2024 Anuradha Hermosillo Unspecified atherosclerosis of [place] arteries of extremities, bilateral legs I70.203 ; Xerosis of skin L85.3 ; Tinea unguium B35.1 ; Pain in right toe(s) M79.674 ; Pain in left toe(s) M79.675 ; Other hammer toe(s) (acquired), left foot M20.42 ; Other hammer toe(s) (acquired), right foot M20.41 and Venous insufficiency I87.[address] [address] 02/23/2025 Anuradha Hermosillo Unspecified atherosclerosis of [place] arteries of extremities, bilateral legs I70.203 ; Tinea unguium B35.1 ; Pain in right toe(s) M79.674 and Pain in left toe(s) M79.[address] [address] 05/07/2025 Anuradha Hermosillo Unspecified atherosclerosis of [place] arteries of extremities, bilateral legs I70.203 ; Tinea unguium B35.1 ; Pain in right toe(s) M79.674 and Pain in left toe(s) M79.[address] [address] 10/16/2024 Anuradha Hermosillo [address] [address] 10/21/2024 Anuradha Hermosillo [address] [address] 11/02/2024 Anuradha Hermosillo [address] [address] 08/09/2025 Anuradha Hermosillo Assessments Encounter Date Diagnosis (ICD Code) Assessment Notes Treatment Notes Treatment Clinical Notes Section Notes 10/20/2024 Xerosis of skin (ICD-10 - L85.3) [...] CARE INSTRUCTIONS. pdf) 12/22/2024 Unspecified atherosclerosis of [place] arteries of extremities, bilateral legs (ICD-10 - I70.203) 12/22/2024 Xerosis of skin (ICD-10 - L85.3) 02/23/2025 Tinea unguium (ICD-10 - B35.1) 02/23/2025 Unspecified atherosclerosis of [place] arteries of extremities, bilateral legs (ICD-10 - I70.203) 05/07/2025 Unspecified atherosclerosis of [place] arteries of extremities, bilateral legs (ICD-10 - I70.203) 05/07/2025 Tinea unguium (ICD-10 - B35.1) 02/23/2025 Pain in right toe(s) (ICD-10 - M79.674) 12/22/2024 Tinea unguium (ICD-10 - B35.1) 11/20/2024 Unspecified atherosclerosis of [place] arteries of extremities, bilateral legs (ICD-10 - I70.203) 10/20/2024 Unspecified atherosclerosis of [place] arteries of extremities, bilateral legs (ICD-10 - [...] X ray : Foot, left 2V 09/14/2015 05696-VDICNXC NAIL, 6 OR MORE 11/16/2015 77174-QVQRZXY NAIL, 6 OR MORE 05/16/2016 44863-CUXDQCY NAIL, 6 OR MORE 08/23/2016 15486-EQCDJIT NAIL, 6 OR MORE 12/05/2016 80813-QQIACVJ NAIL, 6 OR MORE 03/06/2017 54939-SYIREMX NAIL, 6 OR MORE 07/03/2017 71023-HLMXSKI NAIL, 6 OR MORE 03/10/2015 00819-ASIRBNN NAIL, 6 OR MORE 06/13/2015 42515-TFAEHDE NAIL, 6 OR MORE 10/01/2013 93043-TSDFYYE NAIL, 6 OR MORE 01/13/2015 81431-DIYDCID NAIL, 6 OR MORE 06/30/2018 24513-XPNJVOP NAIL, 6 OR MORE 11/04/2017 59253-ONBTIQK NAIL, 6 OR MORE 03/05/2018 14383-Rghc Destruction, 1-14 01/27/2015 14424-Djlg Destruction, 1-14 01/13/2015 00097-Peht Destruction, 1-14 03/10/2015 28645-Osxy Destruction, 1-14 06/13/2015 82869-Skrpyjpc Plate 06/13/2015 75805-Zvsmceav Plate 03/10/2015 55782-Daebzicx Plate 06/30/2018 25291- Debride <25 sq cm 03/10/2015 97480- Debride <25 sq cm 01/27/2015 64847- Debride <25 sq cm 08/24/2015 26268- Debride <25 sq cm 09/05/2015 39147- Debride <25 sq cm 09/14/2015 88220-AQGTULX SKIN/TISSUE 01/13/2015 01792-TJXJIIF SKIN/TISSUE 07/20/2015 82737-RCYEJNJ SKIN/TISSUE 06/27/2015 83001-WORFONX SKIN/TISSUE 07/04/2015 35116-ICQECHM SKIN/TISSUE 10/17/2022 13254-MQXR SKIN LESIONS, OVER 4 11/15/19 21 18542-KODN SKIN LESIONS, OVER 4 03/16/20 21 25884-RXDR SKIN LESIONS, OVER 4 10/17/19 23 50400-XFKT SKIN LESIONS, 2 TO 4 06/30/20 18 04232-ELKZ SKIN LESIONS, 2 TO 4 03/05/20 18 01890-UAKB SKIN LESIONS, 2 TO 4 11/25/19 19 39982-EZFR SKIN LESIONS, 2 TO 4 03/30/20 19 63216-NWAR SKIN LESIONS, 2 TO 4 07/20/20 19 48685-VKLN SKIN LESIONS, 2 TO 4 11/18/19 84941-UVAL SKIN LESIONS, 2 TO 4 03/21/20 20 58102-UCRT SKIN LESIONS, 2 TO 4 07/20/20 69180-FUYQ SKIN LESIONS, 2 TO 4 02/28/20 23 27446-PNBK SKIN LESIONS, 2 TO 4 05/16/20 16 56552-SQSX SKIN LESIONS, 2 TO 4 11/16/19 16 44902-CAVC SKIN LESIONS, 2 TO 4 11/04/19 18 39669-XYOH SKIN LESIONS, 2 TO 4 07/03/20 17 05370-VZQY SKIN LESIONS, 2 TO 4 12/06/19 17 29061-NCKZ SKIN LESIONS, 2 TO 4 03/06/20 17 44388-QMIP SKIN LESIONS, 2 TO 4 08/23/20 16 03396-LHLKXJFF OF HEMATOMA/FLUID 023 Next Appt Details Provider Name:Anuradha amado, 10/08/2025 01:00:00 PM, [address] [place], [address], Insurance Providers Payer Name Payer Address Payer Phone Subscriber Number Group Number Insured Name Patient Relationship to Insured Coverage Start Date Coverage End Date [address] [address] [phone] [id number] Vladimir Flynn Self - patient is the insured Medical (General) History Medical History History ICD [...]
--- OUTSIDE RECORDS SUMMARY | 2025-09-03 13:07 | XMS_ITS | Data Portability ---
Author Organization ID - [facility], Allergy Address [address] [place] [address] Care Team Providers Care Editor Department Name Role Phone MARLENI PIRES Primary Care Provider [phone] Assessment Encounter Date Assessment Date Assessment LastModified [...] By Organization Details Last Modified Time 06/14/2025 88454 The patient has evidence today of significant [...] Organization Details Recorded Time Diverticula r disease 761171704 Active 2015 Judy ferro [place] - [facility] 5 11:08:46 Benign prostatic hyperplasia 959316978 Active 2016 JOSEFA Valdez [facility] 5 11:08:46 Non-toxic multinodula r goiter 62704740 Active 2017 Judy ferro [place] - [facility] 5 11:08:46 Venous varices 284361455 Active 2017 Judy ferro [place] - [facility] [place] 5 11:08:46 Peripheral venous insufficien cy 59602074 Active 2017 Judy ferro [place] - [facility] [place] 5 11:08:46 Hypertensiv e disorder 73186499 Active 2017 Judy ferro [place] - [facility] [place] 5 11:08:46 Atrial fibrillatio n 64120918 Active 2017 Judy ferro [place] - [facility] [place] 11:08:46 Coronary arterioscle rosis 47025654 Active 2017 Judy ferro [place] - [facility] [place] 11:08:46 Hyperlipide ezequiel 89940319 Active 2017 Judy ferro [place] - [facility] [place] 11:08:46 History of right total knee replacement 9552119418800 102 Active 2018 Judy ferro [place] - [facility] [place] 11:08:46 Osteoarthri tis 747828500 Active 2018 Judy ferro [place] - [facility] [place] 5 11:08:46 Endocarditi s 76159545 Active 2020 Judy ferro [place] - [facility] [place] 5 11:08:46 Mitral valve regurgitati on 47547229 Active 2021 Judy ferro [place] - [facility] [place] 5 11:08:46 Cardiomyopa thy 15356157 Active 2021 Judy ferro [place] - [facility] [place] 5 11:08:47 Peripheral arterial disease 991833048 Active 2022 Judy ferro [place] - [facility] [place] 5 11:08:46 Sensorineur al hearing loss of bilateral ears 410371350 Active 2024 Jarad Gomez, [address] [address], [place], [address], [place] - [facility] 5 12:01:56 Impacted cerumen of bilateral ears 2789217537410 108 Active 2024 Jarad Jason, DO [address] [facility], [place], [address], [place] - [facility] [place] 12:01:53 Problem Notes None recorded. Procedures Surgical History Date Name Laterality Status Provider Name and Address Organization Details Recorded Time Cerumen removal without microscope left completed Jarad Gomez, [address] [facility],[address], [address], [facility] 06/14/2025 08:53:01 Comp Audio with Tymps - 30450 & 36433 completed MICHELLE DELONG, AUD [address] [facility],[address] [address], [place], [address], [facility] 05/31/2025 10:43:31 Cerumen removal with microscope bilateral completed Jarad Gomez, [address] [facility],[address] [address], [place], [address], [facility] 05/31/2025 12:35:31 Imaging Results None recorded. Procedure Notes None recorded. Medical Equipment None Reported. Allergies Allergen ID Allergen Name Allergen Category Reaction Reaction Severity Criticality Documentation Date Start Date Code Code System Note Provider Name and Address Organization Details Recorded Time 873679 clopidogr el medicatio n rash Not available Not available 06/14/20252009 90559 RxNorm Judy fer[place], [place] - [facility] 11:08:33 Medications Name Sig Start Date [...] Updated DateTime 05/31/2025 190.5 cm 26.9 kg/m2 25368.36 g Mariluz No ID - [facility] 05/31/2025 11:11:47 Social History None recorded. Functional Status None recorded. Mental Status None recorded. Family History Nothing Reported. Medical History No medical history recorded. Immunizations Vaccine Type Date Status Note Provider Nam e and Address Organization Details Recorded Time Influenza, adjuvanted, trivalent, PF 9 completed Judy ferro [facility] 06/14/2025 11:08:51 COVID-19, mRNA, LNP-S, PF, 100 mcg/0.5mL dose or 50 mcg/0.25mL dose 1 completed Judy ferro [facility] 06/14/2025 11:08:51 COVID-19, mRNA, LNP-S, PF, 100 mcg/0.5mL dose or 50 mcg/0.25mL dose 1 completed Judy ferro [facility] 06/14/2025 11:08:51 pneumococcal polysaccharide PPV23 7 completed Judy ferro [facility] 06/14/2025 11:08:51 Pneumococcal conjugate PCV 13 5 completed Judy ferro [facility] 06/14/2025 11:08:51 Influenza, split virus, trivalent, PF 0 completed Judy ferro [facility] 06/14/2025 11:08:51 Past Encounters Encounter ID Performer Location Encounter Start Date Encounter Closed Date Diagnosis/Indication Diagnosis SNOMED-CT Code Diagnosis ICD10 Code Diagnosis IMO Codes Diagnosis Note [id number] Jarad Gomez DO [facility] [address] [address] 05/31/2025 10:04:09 05/31/2025 12:02:32 Sensorineural hearing loss of bilateral ears 672285516 H90.3 [id number] Audiologic al evaluation results: Right ear: Normal sloping to severe sensorineu ral hearing loss with good word recognitio n. Left ear: Normal sloping to severe sensorineu ral hearing loss with excellent word recognitio n. Tympanomet ry: Right Ear:Type A Left Ear:Type A Impacted c erumen of bilateral ears 1346711564 595269 H61.23 875809 [id number] Jarad Gomez DO [facility] [address] [address] 06/14/2025 10:57:48 06/14/2025 11:25:59 Sensorineural hearing loss of bilateral ears 612634740 H90.3 [id number] Impacted c erumen of bilateral ears 0514976114 100902 H61.23 229580 Health Concerns Section Related Observation LastModified by Organization Detai ls LastModified Time None Recorded Concern Status LastModified by Organization Details LastModified Time None Recorded Advance Directives Directive None Recorded Payers Insurance Date Sequence Insurance Name Policy Number Policy Flores Covered Member ID Flores Member ID Guarantor Name 04/20/2025 1 [facility] Flynn [id number] 1 Vldaimir Flynn 06/14/2025 1 [facility] - MEDICARE PREFERRED (MEDICARE REPLACEMENT HMO) [facility] Vladimir Flynn [id number] Vladimir Flynn Notes Date Note Type [...] Prior Audiogram: None Jarad Gomez, DO [address] [facility] [address] [facility],[address] [address], [place], [address], [facility] 05/31/2025 12:36:36 06/14/2025 text/html ROS as [...] Prior Audiogram: None Jarad Gomez, DO [address] [facility],[address] [address], [place], [address], [facility] 06/14/2025 11:25:00
--- OUTSIDE RECORDS SUMMARY | 2025-09-03 13:07 | XMS_ITS | Continuity of Care Document ---
Author Organization [place] - [facility], [facility] Address [address] [place] [address] Care Team Providers Care X Ray Consultant Name Role Phone MARLENI PIRES Primary Care Provider [phone] Assessment Encounter Date Assessment Date Assessment LastModified [...] By Organization Details Last Modified Time 06/14/2025 42716 The patient has evidence today of significant [...] Organization Details Recorded Time Diverticula r disease 784123078 Active 2015 Judy ferro [place] - [facility] 11:08:46 Benign prostatic hyperplasia 499255905 Active 2016 Judy ferro [place] - [facility] 11:08:46 Non-toxic multinodula r goiter 84240567 Active 2017 Judy ferro [place] - [facility] 11:08:46 Venous varices 082111531 Active 2017 Judy ferro [place] - [facility] 11:08:46 Peripheral venous insufficien cy 39094646 Active 2017 Judy ferro [place] - [facility] 11:08:46 Hypertensiv e disorder 85916743 Active 2017 Judy ferro [place] - [facility] 11:08:46 Atrial fibrillatio n 31367846 Active 2017 Judy ferro [place] - [facility] 5 11:08:46 Coronary arterioscle rosis 75176441 Active 2017 Judy ferro [place] - [facility] 11:08:46 Hyperlipide ezequiel 96034588 Active 2017 Judy ferro [place] [facility] 11:08:46 History of right total knee replacement 9128486709440 102 Active 2018 Judy Hall null, [place] - [facility] [place] 11:08:46 Osteoarthri tis 387184163 Active 2018 Judy ferro [place] - [facility] [place] 11:08:46 Endocarditi s 75509127 Active 2020 Judy ferro [place] - [facility] [place] 11:08:46 Mitral valve regurgitati on 91473855 Active 2021 Judy ferro [place] - [facility] [place] 11:08:46 Cardiomyopa thy 53447412 Active 2021 Judy ferro [place] - [facility] [place] 11:08:47 Peripheral arterial disease 779136487 Active 2022 Judy ferro [place] - [facility] [place] 11:08:46 Sensorineur al hearing loss of bilateral ears 514521509 Active 2024 Jarad Gomez, DO [address] [place] [address], [address], [facility] - [facility] [place] 12:01:56 Impacted cerumen of bilateral ears 2102747409770 108 Active 2024 Jarad Gomez, DO [address], [address], [place] - [facility] [place] 12:01:53 Problem Notes None recorded. Procedures Surgical History Date Name Laterality Status Provider Name and Address Organization Details Recorded Time 5 Cerumen removal without microscope left completed Jarad Gomez, DO [address] [facility],[address], [address], [place] - [facility] [place] 06/14/2025 08:53:01 Comp Audio with Tymps - 97874 & 53272 completed MICHELLE DELONG, AUD [address] [facility],[address] [address], [place], [address], [place] - [facility] [place] 05/31/2025 10:43:31 Cerumen removal with microscope bilateral completed Jarad Gomez, DO [address] [facility],[address] [address], [place], [address], [facility] - [facility] 05/31/2025 12:35:31 Imaging Results None recorded. Procedure Notes None recorded. Medical Equipment None Reported. Allergies Allergen ID Allergen Name Allergen Category Reaction Reaction Severity Criticality Documentation Date Start Date Code Code System Note Provider Name and Address Organization Details Recorded Time 124082 clopidogr el medicatio n rash Not available Not available 06/14/20252009 78602 RxNorm Judy ferro [place] [facility] 11:08:33 Medications Name Sig Start Date [...] completed JOSEFA Valdez [facility] 06/14/2025 11:08:51 COVID-19, mRNA, LNP-S, PF, 100 mcg/0.5mL dose or 50 mcg/0.25mL dose 1 completed JOSEFA Valdez [facility] 06/14/2025 11:08:51 COVID-19, mRNA, LNP-S, PF, 100 mcg/0.5mL dose or 50 mcg/0.25mL dose 1 completed Judy ferro [facility] 06/14/2025 11:08:51 pneumococcal polysaccharide PPV23 7 completed Judy ferro [facility] 06/14/2025 11:08:51 Pneumococcal conjugate PCV 13 5 completed Judy ferro [facility] 06/14/2025 11:08:51 Influenza, split virus, trivalent, PF 0 completed Judy ferro [facility] 06/14/2025 11:08:51 Past Encounters Encounter ID Performer Location Encounter Start Date Encounter Closed Date Diagnosis/Indication Diagnosis SNOMED-CT Code Diagnosis ICD10 Code Diagnosis IMO Codes Diagnosis Note [id number] Jarad Gomez DO [facility] [address] [address] 05/31/2025 10:04:09 05/31/2025 12:02:32 Sensorineural hearing loss of bilateral ears 402759248 H90.3 [id number] Audiologic al evaluation results: Right ear: Normal sloping to severe sensorineu ral hearing loss with good word recognitio n. Left ear: Normal sloping to severe sensorineu ral hearing loss with excellent word recognitio n. Tympanomet ry: Right Ear:Type A Left Ear:Type A Impacted c erumen of bilateral ears 3498523624 962746 H61.23 [id number] Jarad Gomez DO [facility] [address] [address] 06/14/2025 10:57:48 06/14/2025 11:25:59 Sensorineural hearing loss of bilateral ears 734093988 H90.3 [id number] [id number] Impacted c erumen of bilateral ears 1359866203 169079 H61.23 513367 Health Concerns Section Related Observation LastModified by Organization Detai ls LastModified Time None Recorded Concern Status LastModified by Organization Details LastModified Time None Recorded Payers Encounter Date Sequence Insurance Name Policy Number Policy Flores Covered Member ID Flores Member ID Guarantor Name 06/14/2025 1 [facility]REFERRED (MEDICARE REPLACEMENT HMO) [employer] Vladimir Flynn [id number] 1 Vladimir Fylnn Notes Date Note Type Note Provider Name [...] Prior Audiogram: None Jarad Gomez, DO [address] [facility],[address] [address], [place], [address], [facility] - [facility] 06/14/2025 11:25:00
--- OUTSIDE RECORDS SUMMARY | 2025-09-03 13:08 | XMS_ITS | Patient Health Record ---
Author Organization [facility] Address [address] [place] [address] Care Team Providers Care Photo Technologist Name Role Phone MARLENI CRISOSTOMO, LEXIS Primary Care Provider Unavailab ZACHERY [place] Unavailable [phone] Allergies Allergen (clinical drug ingredient) Drug/Non Drug Allergy documented on EMR Reaction Allergy Type Onset Date Status clopidogrel Plavix Unknown Drug Allergy Activ e Reason For Referral No Information Medications Medication SIG (Take, Route, Frequency, Duration) Notes Start Date End Date Status Warfarin Sodium 2.5 MG Tablet 1 tab(s) orally once a day Active Metoprolol Succinate ER 25 MG Tablet Extended Release 24 Hour 1 tab(s) orally once a day Active Multivitamin 1 TAB ONCE DAILY NAME ONLY Conversion from [employer] Review and pick correct strength-formulatio n from [employer] options. If intended option is not shown, discontinue and re-order from Quick Search. Active Aspirin 81 MG TABLET 1 TAB(S) ORALLY ONCE A DAY NAME ONLY Conversion from Multum Review and pick correct strength-formulatio n from [employer] Mach[employer] options. If intended option is not shown, discontinue and re-order from Quick Search. 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 Past year's travels: None 2021 alcohol use: yes rarely drug use: no marijuana occ Hobbies/Exercise habits: cardio/ isometric 6 days/week Coffee/Tea/Soda: yes coffee rarely, no soda, tea occasionally Marital Status single experience no Living with alone - has girl friend smokers in household no pt never sm roxy Problems Problem Type SNOMED Code ICD Code Onset Dates Problem Status W/U Status Risk Notes Problem Thyroid nodule (708212696) Thyroid nodule (241.0) Active confirmed Problem Multinodular goiter (677298512) Multinodular goiter (E04.2) Active confirmed Plan Of Treatment No Information Insurance Providers Payer Name Payer Address Payer Phone Subscriber Number Group Number Insured Name Patient Relationship to Insured Coverage Start Date Coverage End Date [employer] PREFERRED [address] [place] [address] [id number] WALLY COE Self - patient is the insured Medical (General) History Medical History History ICD Code CAD - ? small [place] - s/p PTCA/stent 2003- Jorge Alberto atrial fibrillation thyroid nodule - benign FNA of dominant solid right thyroid nodule - [facility] 2010; stable, increase in size of adjascent cystic nodule w/o suspicious features; stable u/s 2020; euthyroid Surgical History Surgery Date(Month/Year) Rt knee replacement 10/06/18 laser vein surgery right leg Dr. Alvarez arthroscopic knee surgery - torn meniscu s s/p PTCA/stent 2003 Hospitalization History Reason Date(Month/Year) [facility] Viral infection - hospitalization, r ehab x 2 months 03/2021
--- OUTSIDE RECORDS SUMMARY | 2025-09-03 13:08 | XMS_ITS | Encounter Summary ---
Author Organization [facility] Address [address] [place] [address] Care Team Providers Care Search Consultant Name Role Phone Kirk Randle MD Primary Care Provider [phone] Encounter Details Date Type Department Care Team (Late Contact Info) Description 08/12/2025 Results Follow-Up Vascular Surgery - [place] [address] [facility] [address] [place] [address] Emerald Macario MD [address] [place] [address] Social History Tobacco Use Types Packs/Day Years [...] Department Care Team (Late Contact Info) Description 09/14/2025 11:00 AM EST Office Visit Internal Medicine - [place] [address] [facility] [address] [place] [address] Kirk Randle MD 175 [facility] [address] [place] [address] 08/19/2026 11:00 AM EST Office Visit Vascular Surgery - [place] [address] [place] [address] Raffy Gardner MD [address] [place] [phone] documented as of this encounter Goals Goal [...] documented as of this encounter Care Teams Search Consultant Relationship Specialty Start Date End Date Kirk Randle MD [address] [facility] [address] [facility] [address] [place] [address] PCP - General Internal Medicine 07/12/20 documented as of this encounter
--- OUTSIDE RECORDS SUMMARY | 2025-09-03 13:08 | XMS_ITS | Clinical Summary ---
Author Organization [facility] Address [address] [place] [address] Phone Care Team Providers Care Community Marketing Coordinator Name Role Phone Kirk Randle MD Primary Care Provider [phone] Allergies Active Allergy Reactions Criticality Noted Date [...] 1 (one) time each day. [facility] 4 Active warfarin (COUMADIN) 5 mg tablet Take 1 tablet (5 mg total) by mouth 1 (one) time each day with dinner. See Admin Instructions. May cause heavy bleeding. Take at same time every day. Do not change dietary habits. [facility] directs coumadin instructions 90 tablet 11 5 Active furosemide (LASIX) 20 mg tablet Take 1 tablet (20 mg total) by mouth 1 (one) time each day. 90 tablet 2 06/30/202 5 Active warfarin (COUMADIN) 2.5 mg tablet Take one tablet daily or as directed per Coumad[facility] clinic 90 tablet 1 5 04/27/20 26 Active atorvastatin (LIPITOR) 20 mg tablet TAKE ONE TABLET BY MOUTH EVERY DAY 90 tablet 1 5 Active metoprolol succinate (TOPROL-XL) 25 mg 24 hr tablet TAKE ONE TABLET BY MOUTH EVERY DAY 90 tablet 2 5 Active Active Problems Problem Noted Date Diagnosed Date Peripheral arterial disease 07/16/2023 Cardiomyopathy 04/23/2022 Assessment & Plan (04/19/2025 10:18 AM EDT): [...] (08/04/2024): R knee Atrial fibrillation 05/14/2018 Overview (04/19/2025): Jantoven/ warfarin Assessment & Plan (04/19/2025 10:18 AM EDT): Patient has history of atrial fibrillation and continues on chronic anticoagulation with warfarin given elevated [id number] score. He denies any bleeding or excessive [...] (coronary artery disease) 05/14/2018 Overview (04/19/2025): [place]; Stress test -ve 2010, treated in [facility] in 2003, stents put in. Assessment & [...] prior stenting of the right coronary in 2004 with evidence of a previous myocardial infarction on noninvasive testing no ischemia identified Chronic venous insufficiency 05/14/2018 Overview (08/04/2024): Last Assessment & Plan: Patient continues to follow closely with [facility] vascular surgery. Assessment & Plan (04/19/2025 [...] Encounters Date Type Department Care Team Description 08/19/2025 2:30 PM EST Office Visit Vascular Surgery - [place] [address] [place] [phone] Emerald Macario MD Peripheral arterial disease ([facility] V24) (Primary Dx); Chronic venous insufficiency; PAD (peripheral artery disease) ([facility] V24) 08/12/2025 Results Follow-Up Vascular Surgery - [place] [address] [place] [phone] Emerald Macario MD 07/14/2025 12:25 PM EST - 07/14/2025 11:59 PM EST Hospital Encounter [facility] Ultrasound [address] [place] [phone] Peripheral vascular disease, unspecified ([facility] V24) Discharge Disposition: Home or Self Care [...] PROCEDURE: HISTORICAL CARDIAC CATH KNEE ARTHROSCOPY PROCEDURE: [place] ARTHROSCOPY AID TX SPINE&/FX KNEE W/O FIXJ OTHER SURGICAL HISTORY 05/19/2018 Right PROCEDURE: [place] ENDOVEN ABLTJ INCMPTNT VEIN XTR LASER 1ST VEIN TOTAL KNEE ARTHROPLASTY 10/07/2018 Right PROCEDURE: HISTORICAL TOTAL KNEE REPLACE; COMMENT: [facility] - Dr. Cazares EYE SURGERY Bilateral PROCEDURE: HISTORICAL EYE SURGERY; COMMENT: cataracts BYPASS GRAFT 08/16/2022 Right PROCEDURE: [place] AMPUTATION TOE METATARSOPHALANGEAL JOINT; COMMENT: R 5th toe OTHER SURGICAL HISTORY 08/16/2022 Right PROCEDURE: [place] INCISION BONE CORTEX FOOT; COMMENT: R 5th metatarsal OTHER SURGICAL HISTORY 10/23/2022 PROCEDURE: [place] SLCTV CATHJ 3RD+ ORD SLCTV ABDL PEL/LXTR BRNCH OTHER SURGICAL HISTORY 10/23/2022 PROCEDURE: X-RAY EXAM OF ARM/LEG ARTERY OTHER SURGICAL HISTORY 10/23/2022 PROCEDURE: ULTRASOUND GUIDANCE FOR VASCULAR AC OTHER SURGICAL HISTORY 07/09/2023 PROCEDURE: [place] REVSC OPN/PRQ TIB/RON W/ANGIOPLASTY UNI OTHER SURGICAL HISTORY 07/09/2023 PROCEDURE: ULTRASOUND GUIDANCE FOR VASCULAR AC Medical History Medical History Date Comments Atrial fibrillation (CMS/HCC V24, CMS/HCC V28) DX:Atrial fibrillation (HCC) Coronary artery disease DX:Coron randy artery disease; COMMENT: [place]; Stress test -ve 2010, treated in [facility] in 2003, stents put in. Cataracts, bilateral [...] Orientation Straight 02/08/2025 10 :30 AM EDT Last Filed Vital Signs Vital Sign Reading Time Taken Comments Blood Pressure 139/71 08/19/2025 2:42 PM EST Pulse 45 08/19/2025 2:42 PM EST Temperature 35.6 C (96 F) 03/15/2025 3:39 PM EDT Respiratory Rate - - Oxygen Saturation 98% 04/19/2025 9:48 AM EDT Inhaled Oxygen Concentration - - Weight 98.4 kg (217 lb) 08/19/2025 2:42 PM EST Height 190.5 cm (6' 3 ) 08/19/2025 2:42 PM EST Body Mass Index 27.12 08/19/2025 2:42 PM EST Plan of Treatment Upcoming Encounters Date Type Department Care Team (Late st Contact Info) Description 09/14/2025 11:00 AM EST Office Visit Internal Medicine - [place] [address] [facility] [address] [facility] [address] [place] [phone] Kirk Randle MD [address] [facility] [address] [place] [address] 08/19/2026 11:00 AM EST Office Visit Vascular Surgery - [place] [address] [place] [phone] Raffy Gardner MD [address] [place] [phone] Health Maintenance Due Date Last Done [...] AM EST Cardiomyopathy, unspecified type (CMS/HCC V24, [facility] V28) Primary hypertension Hypercholesterolemi a from Last [...] Signed Date: 07/26/2025 15:26 ET Workstation ID: [id number] Transcribed By: Self Edit Transcribed Date: 07/26/2025 [...] Signed Date: 07/26/2025 15:26 ET Workstation ID: [id number] Transcribed By: Self Edit Transcribed Date: 07/26/2025 15:21 ET Emerald Macario MD CV VASCULAR PROCEDURES Fi [...] 09/30/2024 1:14 PM EST [facility] LDL Calculated 54 0 - 100 mg/dL LAB CHEMISTRY METHOD 09/30/2024 1:14 PM [facility] VLDL Cholesterol Ric 15.4 mg/dL LAB CHEMISTRY METHOD 09/30/2024 1:14 PM [facility] Non HDL Chol. (LDL+VLDL) 69 <145 mg/dL LAB CHEMISTRY METHOD 09/30/2024 1:14 PM [facility] Chol/HDL Ratio 2.4 0.0 - 4.4 LAB CHEMISTRY METHOD 09/30/2024 1:14 PM [facility] Blood Venous blood specimen / Unknown Venipuncture / Unknown 09/30/2024 10:13 AM EST 09/30/2024 11:01 AM EST us Kirk Randle MD LAB BLOOD ORDERABLES Final Resul t [facility] [address] [place] [address], * (ABNORMAL) Comprehensive metabolic panel (09/30/2024 10:13 AM EST) Sodium 140 133 - 145 mmol/L LAB CHEMISTRY METHOD 09/30/2024 1:14 PM [facility] Potassium 4.2 3.5 - 5.5 mmol/L LAB CHEMISTRY METHOD 09/30/2024 1:14 PM [facility] Chloride 106 96 - 110 mmol/L LAB CHEMISTRY METHOD 09/30/2024 1:14 PM [facility] CO2 27 21 - 32 mmol/L LAB CHEMISTRY METHOD 09/30/2024 1:14 PM [facility] Anion Gap 7 3 - 11 LAB CHEMISTRY METHOD 09/30/2024 1:14 PM [facility] Glucose 92 70 - 100 mg/dL LAB CHEMISTRY METHOD 09/30/2024 1:14 PM [facility] BUN 27(H) 5 - 25 mg/dL LAB CHEMISTRY METHOD 09/30/2024 1:14 PM [facility] Creatinine 1.23 0.70 - 1.30 mg/dL LAB CHEMISTRY METHOD 09/30/2024 1:14 PM [facility] eGFR 59(L) >=60 mL/min/1. 73m2 LAB CHEMISTRY METHOD 09/30/2024 1:14 PM [facility] Comment:Calculation based on the Chronic Kidney Disease Epidemiology Collaboration (CKD-EPI) equation refit without adjustment for race. BUN/Creatinine Ratio 22.0 LAB CHEMISTRY METHOD 09/30/2024 1:14 PM [facility] Calcium 9.9 8.5 - 10.5 mg/dL LAB CHEMISTRY METHOD 09/30/2024 1:14 PM [facility] AST (SGOT) 42 10 - 42 unit/L LAB CHEMISTRY METHOD 09/30/2024 1:14 PM [facility] ALT (SGPT) 35 10 - 60 unit/L LAB CHEMISTRY METHOD 09/30/2024 1:14 PM [facility] Alkaline Phosphatase 97 42 - 121 unit/L LAB CHEMISTRY METHOD 09/30/2024 1:14 PM [facility] Total Protein 7.1 6.0 - 8.0 g/dL LAB CHEMISTRY METHOD 09/30/2024 1:14 PM [facility] Albumin 4.0 3.2 - 5.0 g/dL LAB CHEMISTRY METHOD 09/30/2024 1:14 PM [facility] Total Bilirubin 1.2 0.0 - 1.4 mg/dL LAB CHEMISTRY METHOD 09/30/2024 1:14 PM [facility] Blood Venous blood specimen / Unknown Venipuncture / Unknown 09/30/2024 10:13 AM EST 09/30/2024 11:01 AM EST Kirk Randle MD LAB BLOOD ORDERABLES Final Resul t [facility] [address] [place] [address], from Last 3 Months or Most Recently Relevant to Health Maintenance Insurance [employer] Advance Directives Documents on File Type Date Recorded Patient Statistics Tutor Expl anation Health Care Decision (hx) 07/09/2023 AD CRAFT DIRECTIVE Health Care Decision (hx) 07/09/2023 AD CRAFT DIRECTIVE Health Care Decision (hx) 07/09/2023 AD RCAFT DIRECTIVE Health Care Decision (hx) [...] (hx) 03/28/2021 AD CRAFT DIRECTIVE Care Teams Community Marketing Coordinator Relationship Specialty Start Date End Date Kirk Randle MD [address] [place] [address] PCP - General Internal Medicine 07/12/20
[2025-09-03 13:16] LABS: Prothrombin Time Whole Bld POC 39.9 sec (11.1-13.5); ~PT, ~INR - Anti Coag Clinic 3.3 (0.9-1.1)
--- NOTE | 2025-09-03 13:18 | MHC.OFFVISCO ---
Intake Intake Visit Reasons: Anticoagulation Allergies clopidogrel (From PLAVIX) Allergy (Unknown, Verified 09/03/25 13:04) RASH Medication List - Last Reconciled 09/03/25 by Carolina Diaz, RN acetaminophen ER 650 mg PO Q12H PRN ascorbic acid (vitamin C) 500 mg PO DAILY atorvastatin 20 mg PO DAILY B-complex with vitamin C 1 tab PO DAILY calcium carb-mag ox-zinc sulf 1 tab PO DAILY coenzyme Q10 10 mg PO TID ferrous sulfate 325 mg PO DAILY furosemide 20 mg PO DAILY meclizine 12.5 mg orally once a day as needed for dizziness PRN; metoprolol succinate ER 25 mg PO DAILY omega 4-zil-mue-fish oil 1,000 (120-180) mg (Fish Oil) 1 cap PO DAILY saw palmetto 500 mg PO BID vitamin E 400 units PO DAILY warfarin 2.5 mg See Protocol PO DAILY Nursing Note INR: 3.3 out of therapeutic range of 2-3 Medications and supplements reviewed Patient status: feels well Medications or supplements: no changes Diet: usual diet for pt Denies any signs and symptoms of bleeding or clotting or unusual bruising Bleeding, bruising, clotting discussed Nutritional guidance given: to have a serving of greens today Dose: 2.5mg daily F/U INR Date: 10/05/25?? Patient verbalizing understanding of instructions with read back given. 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
== END 2025-09-03 13:26 | disposition home or self-care (01) ==
LOC: HO.ACS 13:03
PROVIDERS: PCP Internal Medicine; Visit Provider Internal Medicine Medical Oncology
DX: Z79.01 Long term (current) use of anticoagulants (principal)

== ENCOUNTER → 2025-09-03 13:03 | Outpatient (BNVA) | payer MEDICARE, SELFPAY | PROVIDERS: PCP Internal Medicine; Visit Provider Internal Medicine Medical Oncology | DX: I48.91 Unspecified atrial fibrillation (principal); Z51.81 Encounter for therapeutic drug level monitoring; Z79.01 Long term (current) use of anticoagulants | CPT/HCPCS: 85610; 99211 ==